=== PATIENT | female | born 1930 | race Hispanic/Latino ===

== ENCOUNTER 2017-10-16 10:53 | Emergency (ER) | payer MEDICARE, OTHER ==
[2017-10-16 11:00] VITALS: PULSE 76; TEMP 97; O2SAT 97; BMI 33.0
[2017-10-16 11:15] VITALS: RESP 18
--- NOTE | 2017-10-16 13:00 | ED PDOC ---
HPI: Female Pain Time Seen by Provider: 10/16/17 11:16 Chief Complaint (Nursing): Female Genitourinary Chief Complaint (Provider): Female genitourinary History Per: Patient History/Exam Limitations: no limitations Onset/Duration Of Symptoms: Days (x2 months) Current Symptoms Are (Timing): Still Present Pain Scale Rating Of: 0 Associated Symptoms: Urinary Symptoms (urinary difficulty). denies: Fever, Back Pain, Other (abdominal pain, ) Additional Complaint(s): Amber Pierce is an 87 year old female, with a past medical history of HTN, arthritis, hypercholesterolemia, frequent UTIs, and difficulty with urination, who presents to the emergency department complaining of urinary problem onset for x2 months. Patient was referred to Urologist, Dr. Parkinson, but was unable to follow-up due to insurance problem. Patient was seen here in September for the same symptoms and was given Abx. Patient still has urinary difficulty but denies new complaints, pain with urination, abdominal pain, back pain or fevers. No further medical complaints. PMD: Jay Alejandra Past Medical History Reviewed: Historical Data, Nursing Documentation, Vital Signs Vital Signs: Last Vital Signs Temp 97 F L 10/16/17 11:10 Pulse 76 10/16/17 11:10 Resp 18 10/16/17 11:10 BP 177/66 H 10/16/17 11:10 Pulse Ox 97 10/16/17 11:10 - Medical History PMH: Arthritis, HTN, Hypercholesterolemia Denies: Chronic Kidney Disease - Surgical History Surgical History: No Surg Hx - Family History Family History: States: Unknown Family Hx - Social History Current smoker - smoking cessation education provided: No Alcohol: None Drugs: Denies - Home Medications Home Medications: Ambulatory Orders Medication Instructions Recorded Bimatoprost [Lumigan] 2.5 ml PO DAILY 10/09/16 Gabapentin [Neurontin] 100 mg PO DAILY 10/09/16 Meloxicam [Meloxicam] 7.5 mg PO DAILY 10/09/16 Metoprolol Succinate [Toprol XL] 50 mg PO DAILY 10/09/16 Simvastatin [Simvastatin] 20 mg PO DAILY 10/09/16 Nitrofurantoin Macrocrystals 100 mg PO BID #14 tab 09/10/17 [Macrobid] Ciprofloxacin [Cipro] 500 mg PO BID #14 tab 10/16/17 - Allergies Allergies/Adverse Reactions: Allergies Allergy/AdvReac Type Severity Reaction Status Date / Time No Known Allergies Allergy Verified 10/02/16 10:31 Review of Systems ROS Statement: Except As Marked, All Systems Reviewed And Found Negative Constitutional: Negative for: Fever Gastrointestinal: Negative for: Abdominal Pain Genitourinary Female: Positive for: Incontinence (w/ discomfort) Musculoskeletal: Negative for: Back Pain Physical Exam - Reviewed Nursing Documentation Reviewed: Yes Vital Signs Reviewed: Yes - Physical Exam Appears: Positive for: Well (appears), Non-toxic, No Acute Distress Head Exam: Positive for: ATRAUMATIC Skin: Positive for: Normal Color, Warm, Dry Eye Exam: Positive for: Normal appearance, EOMI Neck: Positive for: Painless ROM, Supple Cardiovascular/Chest: Positive for: Regular Rate, Rhythm. Negative for: Murmur Respiratory: Positive for: Normal Breath Sounds. Negative for: Respiratory Distress Gastrointestinal/Abdominal: Positive for: Soft. Negative for: Tenderness, Guarding, Rebound Extremity: Positive for: Normal ROM. Negative for: Deformity, Swelling Neurologic/Psych: Positive for: Alert, Oriented - ECG O2 Sat by Pulse Oximetry: 97 (RA) Pulse Ox Interpretation: Normal Medical Decision Making Medical Decision Making: Initial Impression: recurrent UTI, chronic urinary dysuria Initial Plan: --Urine dipstick --Urine C&S --reevaluation -Patient will be referred to an urologist. Scribe Attestation: Documented by Teddy Landis, acting as a scribe for Shyam Del Rio MD Provider Scribe Attestation: All medical record entries made by the Scribe were at my direction and personally dictated by me. I have reviewed the chart and agree that the record accurately reflects my personal performance of the history, physical exam, medical decision making, and the department course for this patient. I have also personally directed, reviewed, and agree with the discharge instructions and disposition. Disposition - Clinical Impression Clinical Impression: Chronic urinary tract infection, Urinary retention - Patient ED Disposition Is Patient to be Admitted: No Counseled Patient/Family Regarding: Studies Performed, Diagnosis, Need For Followup - Disposition Referrals: Rikki Sethi Jr., MD [Staff Provider] - Disposition: Routine/Home Disposition Time: 12:30 Condition: GOOD Additional Instructions: Follow up with Dr Sethi within 1 week. You will have service call you in [place] for appointment. Prescriptions: Ciprofloxacin [Cipro] 500 mg PO BID #14 tab Instructions: Chronic Urinary Retention in Women (ED) Forms: [facility] (Romansh), [facility] (Luxembourger) Print Language: [place]
[2017-10-16 13:12] VITALS: BP 132/74
== END 2017-10-16 13:12 | disposition home or self-care (01) ==
LOC: H.ER 10:53
DX: N39.0 Urinary tract infection, site not specified (principal); R39.9 Unspecified symptoms and signs involving the genitourinary system; E78.00 Pure hypercholesterolemia, unspecified; I10 Essential (primary) hypertension

== ENCOUNTER 2017-11-25 12:18 | Inpatient (IN) | payer MEDICARE, OTHER ==
[2017-11-25] MEDS ORDERED: Sodium Chloride 0.9% 1,000 ML IV STA (12:44)
[2017-11-25] MEDS ORDERED: Iohexol 240 (50 ml) PO ONE (13:28)
--- NOTE | 2017-11-25 14:34 | RAD ---
HISTORY: SOB COMPARISON: 06/05/2017. FINDINGS: LUNGS: No active pulmonary disease. PLEURA: No significant pleural effusion identified, no pneumothorax apparent. CARDIOVASCULAR: No radiographic findings to suggest acute or significant cardiovascular disease. OSSEOUS STRUCTURES: No significant abnormalities. VISUALIZED UPPER ABDOMEN: Normal. OTHER FINDINGS: None. IMPRESSION: No active disease. No significant interval change compared to the prior examination(s).
[2017-11-25] MEDS ORDERED: Iohexol 240 (50 ml) ONE (14:35)
[2017-11-25 15:03] LABS: BASO % 0.3 % (0.0-2.0); EOS # 0.1 K/uL (0.0-0.7); EOS % 1.3 % (0.0-4.0); HEMOGLOBIN 11.6 g/dL (12.0-16.0); LYMPH # 0.4 K/uL (1.0-4.3); LYMPH % 7.1 % (20.0-40.0); MEAN CELL VOLUME 99.4 fl (81.0-99.0); MEAN CORPUSCULAR HEMOGLOBIN 31.9 pg (27.0-31.0); MEAN CORPUSCULAR HGB CONC 32.1 g/dL (33.0-37.0); MEAN PLATELET VOLUME 8.5 fl (7.2-11.7); MONO # 0.8 K/uL (0.0-0.8); MONO % 14.9 % (0.0-10.0); NEUT # 3.9 K/uL (1.8-7.0); NEUT % 76.4 % (50.0-75.0); PLATELET COUNT 135 K/uL (130-400); RBC 3.65 Mil/uL (3.80-5.20); RED CELL DISTRIBUTION WIDTH 13.6 % (11.5-14.5); URINE BACTERIA RARE (<OCC); URINE BILIRUBIN NEGATIVE (NEGATIVE); URINE BLOOD SMALL (NEGATIVE); URINE CLARITY CLEAR (Clear); URINE COLOR YELLOW (YELLOW); URINE GLUCOSE (UA) NEG (Normal); URINE LEUKOCYTE ESTERASE NEG Leu/uL (Negative); URINE NITRATE NEGATIVE (NEGATIVE); URINE PROTEIN NEGATIVE (NEGATIVE); URINE UROBILINOGEN 0.2-1.0 mg/dL (0.2-1.0)
[2017-11-25 15:08] LABS: PARTIAL THROMBOPLASTIN TIME 31.7 Seconds (25.6-37.1); PROTHROMBIN TIME 11.1 Seconds (9.8-13.1)
[2017-11-25 15:14] LABS: ALB/GLOB RATIO 1.3 (1.0-2.1); ALBUMIN 3.8 g/dL (3.5-5.0); ALT/SGPT 24 U/L (9-52); AST/SGOT 29 U/L (14-36); BLOOD UREA NITROGEN 26 mg/dl (7-17); CALCIUM 9.1 mg/dL (8.4-10.2); GFR AFRICAN-AMERICAN > 60; GFR NON-AFRICAN AMERICAN 53; LIPASE 80 U/L (23-300)
--- NOTE | 2017-11-25 15:43 | ED PDOC ---
HPI: Abdomen Time Seen by Provider: 11/25/17 12:43 Chief Complaint (Nursing): Abdominal Pain Chief Complaint (Provider): abdominal pain History Per: Patient, Family (cousin), Corporate Safety Director (omani) History/Exam Limitations: other (poor historian) Onset/Duration Of Symptoms: Gradual, Other (weeks, worse today) Context: Food Severity: Moderate Location Of Pain/Discomfort: Diffuse Quality Of Discomfort: Sharp Associated Symptoms: Nausea. denies: Vomiting, Diarrhea, Loss Of Appetite, Urinary Symptoms Exacerbating Factors: Food Alleviating Factors: None Last Bowel Movement: Today Additional Complaint(s): 87yo female presents c/o worsening abdominal pain over the last several weeks. She notes mild nausea, told RN she saw blood in stool but denied to journalists and other writers. Denies weight loss, fever, syncope, cough or constipation. PMD Justyn Abnormal Vaginal Bleeding: No Past Medical History Reviewed: Historical Data, Nursing Documentation, Vital Signs Vital Signs: Last Vital Signs Temp 97.8 F 11/25/17 12:21 Pulse 78 11/25/17 19:14 Resp 16 11/25/17 12:21 BP 150/73 11/25/17 12:21 Pulse Ox 97 11/25/17 19:14 - Medical History PMH: Arthritis, Depression, HTN, Hypercholesterolemia Denies: Chronic Kidney Disease - Surgical History Surgical History: Appendectomy Other surgeries: back surgery. shoulder? - Family History Family History: States: Unknown Family Hx - Home Medications Home Medications: Ambulatory Orders Medication Instructions Recorded Bimatoprost [Lumigan] 2.5 ml PO DAILY 10/09/16 Gabapentin [Neurontin] 100 mg PO DAILY 10/09/16 Meloxicam [Meloxicam] 7.5 mg PO DAILY 10/09/16 Metoprolol Succinate [Toprol XL] 50 mg PO DAILY 10/09/16 Simvastatin [Simvastatin] 20 mg PO HS 10/09/16 - Allergies Allergies/Adverse Reactions: Allergies Allergy/AdvReac Type Severity Reaction Status Date / Time No Known Allergies Allergy Verified 10/02/16 10:31 Review of Systems ROS Statement: Except As Marked, All Systems Reviewed And Found Negative Constitutional: Negative for: Fever, Chills Cardiovascular: Negative for: Chest Pain, Palpitations Respiratory: Negative for: Cough, Shortness of Breath Gastrointestinal: Positive for: Nausea, Abdominal Pain, Hematochezia. Negative for: Melena Genitourinary Female: Negative for: Dysuria Musculoskeletal: Positive for: Back Pain. Negative for: Neck Pain Skin: Negative for: Rash, Lesions Neurological: Negative for: Weakness, Numbness, Headache, Dizziness Psych: Negative for: Anxiety Physical Exam - Reviewed Nursing Documentation Reviewed: Yes Vital Signs Reviewed: Yes - Physical Exam Appears: Positive for: Well, Non-toxic, No Acute Distress Head Exam: Positive for: ATRAUMATIC, NORMAL INSPECTION, NORMOCEPHALIC Skin: Positive for: Warm, Pallor Eye Exam: Positive for: EOMI, Normal appearance, PERRL ENT: Positive for: Normal ENT Inspection Neck: Positive for: Normal, Painless ROM Cardiovascular/Chest: Positive for: Regular Rate, Rhythm Respiratory: Positive for: CNT, Normal Breath Sounds Gastrointestinal/Abdominal: Positive for: Bowel Sounds, Soft, Tenderness (mild diffuse). Negative for: Distended, Guarding, Rebound, Hernia Back: Positive for: Normal Inspection Extremity: Positive for: Normal ROM Neurologic/Psych: Positive for: Alert, Oriented - Laboratory Results Result Diagrams: 11/25/17 14:51 11/25/17 14:51 - ECG ECG: Positive for: Interpreted By Wi ECG Rhythm: Positive for: Normal QRS, Sinus Rhythm, Nonspecific Changes Rate: 78 O2 Sat by Pulse Oximetry: 97 Pulse Ox Interpretation: Normal Medical Decision Making Medical Decision Making: workup for abdominal pain in elderly female initiated 14:33 Chest x-ray reviewed. Findings noted as follows: FINDINGS: LUNGS: No active pulmonary disease. PLEURA: No significant pleural effusion identified, no pneumothorax apparent. CARDIOVASCULAR: No radiographic findings to suggest acute or significant cardiovascular disease. OSSEOUS STRUCTURES: No significant abnormalities. VISUALIZED UPPER ABDOMEN: Normal. OTHER FINDINGS: None. IMPRESSION: No active disease. No significant interval change compared to the prior examination(s). 17:57 Abdominal/pelvic CT reviewed. Findings noted as follows: FINDINGS: LOWER THORAX: Unremarkable. LIVER: Unremarkable. No gross lesion or ductal dilatation. Incidental finding(s): Subcentimeter calcified granuloma right hepatic lobe adjacent to the gallbladder. GALLBLADDER AND BILE DUCTS: Cholelithiasis without CT evidence of acute cholecystitis. PANCREAS: Unremarkable. No gross lesion or ductal dilatation. SPLEEN: Unremarkable. ADRENALS: Unremarkable. No mass. KIDNEYS AND URETERS: Unremarkable. No hydronephrosis. No solid mass. Incidental finding(s): 2 simple cysts identified right kidney. The larger more exophytic cyst lower pole region measures 3 x 3.5 cm. The smaller cyst measures 2.2 x 1.8 cm. VASCULATURE: Unremarkable. No aortic aneurysm. BOWEL: Severe sigmoid diverticular disease. APPENDIX: A normal appendix is not identified. No right lower quadrant or pelvic inflammatory process ease identified. PERITONEUM: Unremarkable. No free fluid. No free air. LYMPH NODES: Unremarkable. No enlarged lymph nodes. BLADDER: Unremarkable. REPRODUCTIVE: Unremarkable. BONES: No acute fracture. Multilevel degenerative change. Incidental finding(s): Mid and lower thoracic hum angioma OTHER FINDINGS: None. IMPRESSION: Severe sigmoid diverticular disease without an acute inflammatory component/ no interval change. Cholelithiasis without CT evidence of acute cholecystitis. No significant interval changes compared to the prior study. Additional benign and/or incidental findings described above. 19:[address] Alejandra, given pain now ongoing for >1month intermittently, rec admit obs for surgical consult. While elderly, she is otherwise a good candidate for surgery given stable metabolics and overall good conditioning. Scribe Attestation: Documented by Helga Thao, acting as a scribe for Rikki Wall III, DO. Provider Scribe Attestation: All medical record entries made by the Scribe were at my direction and personally dictated by me. I have reviewed the chart and agree that the record accurately reflects my personal performance of the history, physical exam, medical decision making, and the department course for this patient. I have also personally directed, reviewed, and agree with the discharge instructions and disposition. Disposition - Clinical Impression Clinical Impression: Cholelithiasis - Patient ED Disposition Is Patient to be Admitted: Yes Counseled Patient/Family Regarding: Studies Performed - Disposition Disposition: Routine/Home Disposition Time: 19:16 Condition: STABLE Forms: [employer] (Italian) - Pt Status Changed To: Hospital Disposition Of: Observation - POA Present On Arrival: None
[2017-11-25 16:42] LABS: EOSINOPHIL 3 % (0-7); LYMPHOCYTE 9 % (20-50); MONOCYTE 8 % (0-10); NEUTROPHIL 79 % (42-75); REACTIVE LYMPHOCYTES 1 % (0-0); TOTAL CELLS COUNTED 100
[2017-11-25 16:43] LABS: PLATELET ESTIMATE NORMAL (NORMAL)
[2017-11-25 16:44] LABS: OVALOCYTES SLIGHT
[2017-11-25] MEDS ORDERED: Sodium Chloride 0.9% 50 ML IV ONE (17:10)
[2017-11-25] MEDS ORDERED: Iohexol 300 100 ML IJ ONE (17:10)
--- NOTE | 2017-11-25 17:59 | CT ---
PROCEDURE: CT Abdomen and Pelvis with contrast HISTORY: Lower abdominal pain. Blood in stool. COMPARISON: 11/23/2017 CT abdomen and pelvis. TECHNIQUE: Contrast dose: 90 cc Omnipaque 300 Radiation dose: Total exam DLP = 1003.01 mGy-cm. This CT exam was performed using one or more of the following dose reduction techniques: Automated exposure control, adjustment of the mA and/or kV according to patient size, and/or use of iterative reconstruction technique. FINDINGS: LOWER THORAX: Unremarkable. LIVER: Unremarkable. No gross lesion or ductal dilatation. Incidental finding(s): Subcentimeter calcified granuloma right hepatic lobe adjacent to the gallbladder. GALLBLADDER AND BILE DUCTS: Cholelithiasis without CT evidence of acute cholecystitis. PANCREAS: Unremarkable. No gross lesion or ductal dilatation. SPLEEN: Unremarkable. ADRENALS: Unremarkable. No mass. KIDNEYS AND URETERS: Unremarkable. No hydronephrosis. No solid mass. Incidental finding(s): 2 simple cysts identified right kidney. The larger more exophytic cyst lower pole region measures 3 x 3.5 cm. The smaller cyst measures 2.2 x 1.8 cm. VASCULATURE: Unremarkable. No aortic aneurysm. BOWEL: Severe sigmoid diverticular disease. APPENDIX: A normal appendix is not identified. No right lower quadrant or pelvic inflammatory process ease identified. PERITONEUM: Unremarkable. No free fluid. No free air. LYMPH NODES: Unremarkable. No enlarged lymph nodes. BLADDER: Unremarkable. REPRODUCTIVE: Unremarkable. BONES: No acute fracture. Multilevel degenerative change. Incidental finding(s): Mid and lower thoracic hum angioma OTHER FINDINGS: None. IMPRESSION: Severe sigmoid diverticular disease without an acute inflammatory component/ no interval change. Cholelithiasis without CT evidence of acute cholecystitis. No significant interval changes compared to the prior study. Additional benign and/or incidental findings described above.
[2017-11-25] MEDS ORDERED: Morphine 4 MG/ML VIAL ONE (19:14)
--- NOTE | 2017-11-25 20:20 | CP.PCM.HP ---
History of Present Illness - History of Present Illness History of Present Illness: PMD: Dr Alejandra Chief Complaint: Abdominal Pain HPI: 87 years old [place] female with little [place], has hx of HTN, Arthritis, back surgery and stomach problem for one month comes with a worsening of the epigastric , preiumbilical pains that are intermittent and radiating up retro sternal region. The pain is not associated with vomiting, dysuria , urinary frequency, nor diarrhea. She did refer to the nurse of blood in stool PMH: Arthritis, Depression, HTN, Hypercholesterolemia PSH: Appendectomy, Back surgery and bilateral cataract surgery SH: Never Smoked, No illegal drug use; No ETOH FH: States: Unknown Family Hx Allergies: NKDA [id number]: Reviewed Present on Admission - Present on Admission Any Indicators Present on Admission: No History of DVT/PE: No History of Uncontrolled Diabetes: No Urinary Catheter: No Decubitus Ulcer Present: No Review of Systems - Constitutional Constitutional: absent: Chills, Fever, Lethargy - EENT Eyes: Requires Corrective Lenses. absent: Diplopia, Floaters Ears: absent: Decreased Hearing, Ear Discharge, Ear Pain, Tinnitus Nose/Mouth/Throat: absent: Epistaxis, Nasal Congestion, Nasal Discharge - Cardiovascular Cardiovascular: Edema. absent: Chest Pain, Dyspnea - Respiratory Respiratory: absent: Cough, Dyspnea, Dyspnea on Exertion, Excessive Mucous Production - Gastrointestinal Gastrointestinal: Nausea. absent: Constipation, Diarrhea, Vomiting - Genitourinary Genitourinary: absent: Dysuria, Flank Pain, Hematuria, Urinary Frequency - Musculoskeletal Musculoskeletal: Arthralgias. absent: Myalgias - Integumentary Integumentary: absent: Pruritus, Rash, Skin Ulcer, Sores, Striae - Neurological Neurological: absent: Confusion, Dizziness, Numbness, Headaches - Psychiatric Psychiatric: absent: Anxiety, Depression, Panic Attacks - Endocrine Endocrine: absent: Palpitations, Polydipsia, Polyphagia, Polyuria - Hematologic/Lymphatic Hematologic: absent: Easy Bleeding, Easy Bruising Past Patient History - Past Medical History & Family History Past Medical History?: Yes - Past Social History Smoking Status: Never Smoked Chewing Tobacco Use: No Cigar Use: No Alcohol: None Drugs: Denies - CARDIAC Hx Hypercholesterolemia: Yes Hx Hypertension: Yes - PULMONARY Hx Respiratory Disorders: No - NEUROLOGICAL Hx Neurological Disorder: No - HEENT Hx HEENT Problems: No - RENAL Hx Chronic Kidney Disease: No - ENDOCRINE/METABOLIC Hx Endocrine Disorders: No - HEMATOLOGICAL/ONCOLOGICAL Hx Blood Disorders: No - INTEGUMENTARY Hx Dermatological Problems: No - MUSCULOSKELETAL/RHEUMATOLOGICAL Hx Arthritis: Yes - GASTROINTESTINAL Hx Gastrointestinal Disorders: No - GENITOURINARY/GYNECOLOGICAL Hx Genitourinary Disorders: No - PSYCHIATRIC Hx Depression: Yes - SURGICAL HISTORY Hx Appendectomy: Yes Hx Orthopedic Surgery: Yes (Back surgery) - ANESTHESIA Hx Anesthesia: Yes Hx Anesthesia Reactions: No Hx Malignant Hyperthermia: No Meds Allergies/Adverse Reactions: Allergies Allergy/AdvReac Type Severity Reaction Status Date / Time No Known Allergies Allergy Verified 10/02/16 10:31 Physical Exam - Constitutional Appears: No Acute Distress - Head Exam Head Exam: ATRAUMATIC, NORMAL INSPECTION, NORMOCEPHALIC - Eye Exam Eye Exam: EOMI, Normal appearance Pupil Exam: NORMAL ACCOMODATION, PERRL - ENT Exam ENT Exam: Mucous Membranes Dry, Mucous Membranes Moist, Normal Exam, Normal Oropharynx - Neck Exam Neck exam: Positive for: Full Rom, Normal Inspection. Negative for: Lymphadenopathy, Tenderness - Respiratory Exam Respiratory Exam: Clear to Auscultation Bilateral, Respiratory Distress. absent : Rales, Rhonchi, Wheezes - Cardiovascular Exam Cardiovascular Exam: REGULAR RHYTHM, RRR, +S1, +S2. absent: Gallop - GI/Abdominal Exam GI & Abdominal Exam: Hyperactive Bowel Sounds, Mass, Normal Bowel Sounds, Soft - Rectal Exam Rectal Exam: Deferred - Extremities Exam Additional comments: Trace edema to the right leg, Tenderness to both ankles - Back Exam Back exam: NORMAL INSPECTION. absent: CVA tenderness (L), CVA tenderness (R) - Neurological Exam Neurological exam: Alert, CN II-XII Intact, Oriented x3, Reflexes Normal - Psychiatric Exam Psychiatric exam: Normal Affect, Normal Mood - Skin Skin Exam: Dry, Intact, Normal Color, Warm Results - Vital Signs Recent Vital Signs: Last Vital Signs Temp 98 F 11/25/17 19:47 Pulse 71 11/25/17 19:47 Resp 18 11/25/17 19:47 BP 140/78 11/25/17 19:47 Pulse Ox 99 11/25/17 19:47 - Labs Result Diagrams: 11/25/17 14:51 11/25/17 14:51 Labs: Laboratory Results - last 24 hr 11/25/17 11/25/17 11/25/17 14:25 14:51 14:51 WBC 5.0 RBC 3.65 L Hgb 11.6 L Hct 36.2 MCV 99.4 H MCH 31.9 H MCHC 32.1 L RDW 13.6 Plt Count 135 MPV 8.5 Neut % (Auto) 76.4 H Lymph % (Auto) 7.1 L [place] % (Auto) 14.9 H Eos % (Auto) 1.3 Baso % (Auto) 0.3 Neut # 3.9 Lymph # 0.4 L [place] # 0.8 Eos # 0.1 Baso # 0.0 Neutrophils % (Manual) 79 H Lymphocytes % (Manual) 9 L Reactive Lymphs % 1 H Monocytes % (Manual) 8 Eosinophils % (Manual) 3 Platelet Estimate Normal Ovalocytes Slight PT INR APTT Sodium 138 Potassium 4.2 Chloride 101 Carbon Dioxide 29 Anion Gap 12 BUN 26 H Creatinine 1.0 Est GFR ( Amer) > 60 Est GFR (Non-Af Amer) 53 Random Glucose 82 Calcium 9.1 Total Bilirubin 0.4 AST 29 ALT 24 Alkaline Phosphatase 54 Troponin I 0.0190 Total Protein 6.7 Albumin 3.8 Globulin 2.9 Albumin/Globulin Ratio 1.3 Lipase 80 Urine Color Urine Clarity Urine pH Ur Specific [place] Urine Protein Urine Glucose (UA) Urine Ketones Urine Blood Urine Nitrate Urine Bilirubin Urine Urobilinogen Ur Leukocyte Esterase Urine RBC (Auto) Urine Microscopic WBC Urine Bacteria Blood Type O POSITIVE Antibody Screen Negative BBK History Checked No verified bt 11/25/17 11/25/17 14:51 14:51 WBC RBC Hgb Hct MCV MCH MCHC RDW Plt Count MPV Neut % (Auto) Lymph % (Auto) [place] % (Auto) Eos % (Auto) Baso % (Auto) Neut # Lymph # [place] # Eos # Baso # Neutrophils % (Manual) Lymphocytes % (Manual) Reactive Lymphs % Monocytes % (Manual) Eosinophils % (Manual) Platelet Estimate Ovalocytes PT 11.1 INR 1.0 APTT 31.7 Sodium Potassium Chloride Carbon Dioxide Anion Gap BUN Creatinine Est GFR ( Amer) Est GFR (Non-Af Amer) Random Glucose Calcium Total Bilirubin AST ALT Alkaline Phosphatase Troponin I Total Protein Albumin Globulin Albumin/Globulin Ratio Lipase Urine Color Yellow Urine Clarity Clear Urine pH 7.0 Ur Specific [place] 1.013 Urine Protein Negative Urine Glucose (UA) Neg Urine Ketones Negative Urine Blood Small Urine Nitrate Negative Urine Bilirubin Negative Urine Urobilinogen 0.2-1.0 Ur Leukocyte Esterase Neg Urine RBC (Auto) < 1 Urine Microscopic WBC < 1 Urine Bacteria Rare Blood Type Antibody Screen BBK History Checked - Impressions Impression: NSR 78/min No sign of ischemia - Imaging and Cardiology US - abdomen Status: Report reviewed by me Additional comment: EXAM: US Abdomen Limited, Right Upper Quadrant EXAM DATE/TIME: 11/25/2017 6:57 PM FINDINGS: Liver: The liver is within normal limits for size and echogenicity. No definite intrahepatic ductal dilatation or mass is identified. Gallbladder: The gallbladder demonstrates a shadowing 2.3 cm gallstone near the neck. No wall thickening, or pericholecystic fluid. The sonographic bass's sign is reported as positive. The extrahepatic CBD measures 3 mm which is normal for age. Common bile duct: See above. Pancreas: The visualized portions of the pancreatic head and body appear unremarkable. The pancreatic tail is not entirely visualized. Right kidney: Right kidney measures 10.1 x 3.8 x 3.7 cm. No hydronephrosis. Simple cyst measures 3.6 x 3.3 x 2.8 cm in the lower pole. No stones. Free fluid: No significant ascites is noted. IMPRESSION: Cholelithiasis. Reported positive sonographic Bass's sign, although there is no additional convincing evidence of acute cholecystitis. Clinical correlation with the degree and nature of right upper quadrant pain is recommended. Chest x-ray Status: Image reviewed by me Additional comment: Poor inspiration Chronic changes at the right paracardiac region CT scan - abdomen Status: Report reviewed by me Additional comment: Severe Sigmoid Diverticulosis without sign of inflammation Cholelithiasis with out sign of Cholecystitis Assessment & Plan - Assessment and Plan (Free Text) Assessment: #. Biliary Cholic #. Cholelithiasis #. Dehydration #. HTN Plan: 87 years old [place] female with little [place], has hx of HTN, Arthritis, back surgery and stomach problem for one month comes with a worsening of the epigastric , preiumbilical pains that are intermittent and radiating up retro sternal region. #. Biliary Cholic with cholelithiasis - Consult Surgery Dr Pineda -NPO -IV Fluids -Pain management #. Dehydration - IV fluids - follow Renal labs #. Hx of Stomach Pains and blood in stool - Consult Dr Henry GI for Possible EGD - Follow Occult blood - Pepcid #. HTN - Restart Toprol in AM - Follow Vital signs #. DVD Prophylaxis with SCD #. Code Status: Full - Date & Time Date: 11/25/17 Time: 20:20
--- NOTE | 2017-11-26 00:15 | CP.PCM.CON ---
<Dilip Sanchez - Last Filed: 11/26/17 06:14> History of Present Illness - History of Present Illness History of Present Illness: General Surgery Consult Note for Dr. Pineda Reason for Consult: abdominal pain 87 F who is primarily Scottish speaking with PMH that includes HTN, Arthritis, HLD, Depression presents to [facility] for abdominal pain. Due to language barrier, history was obtained mostly from her [id number]. Patient understands some Cameroonian and can answer basic questions. As per [id number], patient has had abdominal pain for about 2 months. She has also had nausea, dysuria and frequency. Patient has been seeing PMD. He referred her for imaging which was done over the weekend. Patient began to feel worse and decided to be seen. She rates pain as moderate in severity. Pain is not associated with food. She describes pain as constant and dull ache in epigastric/preiumbilical area that radiates diffusely throughout abdomen and sometimes radiating to sternum. She denies any alleviating/exacerbating factors. Denies fever/chills, chest pain, SOB, nausea/vomiting, diarrhea, constipation, incontinence. PMH: Arthritis, Depression, HTN, Hypercholesterolemia Medications: As per EMR Allergies: NKDA PSH: Appendectomy, Back surgery and bilateral cataract surgery FH: Unknown SH: Never Smoked, No illegal drug use; No ETOH Review of Systems - Review of Systems All systems: reviewed and no additional remarkable complaints except (as per HPI ) Past Patient History - Past Medical History & Family History Past Medical History?: Yes - Past Social History Smoking Status: Never Smoked - CARDIAC Hx Hypercholesterolemia: Yes Hx Hypertension: Yes - PULMONARY Hx Respiratory Disorders: No - NEUROLOGICAL Hx Neurological Disorder: No - HEENT Hx HEENT Problems: No - RENAL Hx Chronic Kidney Disease: No - ENDOCRINE/METABOLIC Hx Endocrine Disorders: No - HEMATOLOGICAL/ONCOLOGICAL Hx Blood Disorders: No - INTEGUMENTARY Hx Dermatological Problems: No - MUSCULOSKELETAL/RHEUMATOLOGICAL Hx Arthritis: Yes Hx Falls: No - GASTROINTESTINAL Hx Gastrointestinal Disorders: No - GENITOURINARY/GYNECOLOGICAL Hx Genitourinary Disorders: No - PSYCHIATRIC Hx Depression: Yes Hx Substance Use: No - SURGICAL HISTORY Hx Appendectomy: Yes - ANESTHESIA Hx Anesthesia: Yes Hx Anesthesia Reactions: No Hx Malignant Hyperthermia: No Meds Allergies/Adverse Reactions: Allergies Allergy/AdvReac Type Severity Reaction Status Date / Time No Known Allergies Allergy Verified 10/02/16 10:31 - Medications Medications: Current Medications Atorvastatin Calcium (Lipitor) 10 mg PO HS [facility] Famotidine (Pepcid) 20 mg IVP DAILY [facility] Dextrose/Sodium Chloride (Dextrose 5%-0.9% Ns 500 Ml) 500 mls @ 75 mls/hr IV .Q6H40M [facility] Stop: 11/26/17 21:53 Last Admin: 11/25/17 22:52 Dose: 75 mls/hr Latanoprost (Xalatan Opht) 1 drop OU HS [facility] Metoprolol Succinate (Toprol Xl) 50 mg PO DAILY [facility] Pneumococcal Polyvalent Vaccine (Pneumovax 23 Vaccine) 0.5 ml IM .ONCE ONE Stop: 11/26/17 09:01 Physical Exam - Constitutional Appears: No Acute Distress - Head Exam Head Exam: ATRAUMATIC, NORMOCEPHALIC - Eye Exam Eye Exam: EOMI, Normal appearance Pupil Exam: PERRL - ENT Exam ENT Exam: Mucous Membranes Moist - Respiratory Exam Respiratory Exam: NORMAL BREATHING PATTERN - Cardiovascular Exam Cardiovascular Exam: REGULAR RHYTHM - GI/Abdominal Exam GI & Abdominal Exam: Normal Bowel Sounds, Soft, Tenderness (diffuse). absent: Distended, Firm, Guarding, Rebound, Rigid - Extremities Exam Extremities exam: Positive for: normal capillary refill, pedal pulses present - Back Exam Back exam: absent: CVA tenderness (L), CVA tenderness (R) - Neurological Exam Neurological exam: Alert, CN II-XII Intact, Oriented x3 - Psychiatric Exam Psychiatric exam: Normal Affect, Normal Mood - Skin Skin Exam: Dry, Intact, Normal Color, Warm Results - Vital Signs Recent Vital Signs: Last Vital Signs Temp 98.3 F 11/25/17 23:52 Pulse 69 11/25/17 23:52 Resp 18 11/25/17 23:52 BP 164/74 H 11/25/17 23:52 Pulse Ox 96 11/25/17 23:52 - Labs Result Diagrams: 11/25/17 14:51 11/25/17 14:51 Labs: Laboratory Results - last 24 hr 11/25/17 11/25/17 11/25/17 14:25 14:51 14:51 WBC 5.0 RBC 3.65 L Hgb 11.6 L Hct 36.2 MCV 99.4 H MCH 31.9 H MCHC 32.1 L RDW 13.6 Plt Count 135 MPV 8.5 Neut % (Auto) 76.4 H Lymph % (Auto) 7.1 L [place] % (Auto) 14.9 H Eos % (Auto) 1.3 Baso % (Auto) 0.3 Neut # 3.9 Lymph # 0.4 L [place] # 0.8 Eos # 0.1 Baso # 0.0 Neutrophils % (Manual) 79 H Lymphocytes % (Manual) 9 L Reactive Lymphs % 1 H Monocytes % (Manual) 8 Eosinophils % (Manual) 3 Platelet Estimate Normal Ovalocytes Slight PT INR APTT Sodium 138 Potassium 4.2 Chloride 101 Carbon Dioxide 29 Anion Gap 12 BUN 26 H Creatinine 1.0 Est GFR ( Amer) > 60 Est GFR (Non-Af Amer) 53 Random Glucose 82 Calcium 9.1 Total Bilirubin 0.4 AST 29 ALT 24 Alkaline Phosphatase 54 Troponin I 0.0190 Total Protein 6.7 Albumin 3.8 Globulin 2.9 Albumin/Globulin Ratio 1.3 Lipase 80 Urine Color Urine Clarity Urine pH Ur Specific [place] Urine Protein Urine Glucose (UA) Urine Ketones Urine Blood Urine Nitrate Urine Bilirubin Urine Urobilinogen Ur Leukocyte Esterase Urine RBC (Auto) Urine Microscopic WBC Urine Bacteria Blood Type O POSITIVE Antibody Screen Negative BBK History Checked No verified bt 11/25/17 11/25/17 14:51 14:51 WBC RBC Hgb Hct MCV MCH MCHC RDW Plt Count MPV Neut % (Auto) Lymph % (Auto) [place] % (Auto) Eos % (Auto) Baso % (Auto) Neut # Lymph # [place] # Eos # Baso # Neutrophils % (Manual) Lymphocytes % (Manual) Reactive Lymphs % Monocytes % (Manual) Eosinophils % (Manual) Platelet Estimate Ovalocytes PT 11.1 INR 1.0 APTT 31.7 Sodium Potassium Chloride Carbon Dioxide Anion Gap BUN Creatinine Est GFR ( Amer) Est GFR (Non-Af Amer) Random Glucose Calcium Total Bilirubin AST ALT Alkaline Phosphatase Troponin I Total Protein Albumin Globulin Albumin/Globulin Ratio Lipase Urine Color Yellow Urine Clarity Clear Urine pH 7.0 Ur Specific [place] 1.013 Urine Protein Negative Urine Glucose (UA) Neg Urine Ketones Negative Urine Blood Small Urine Nitrate Negative Urine Bilirubin Negative Urine Urobilinogen 0.2-1.0 Ur Leukocyte Esterase Neg Urine RBC (Auto) < 1 Urine Microscopic WBC < 1 Urine Bacteria Rare Blood Type Antibody Screen BBK History Checked Assessment & Plan - Assessment and Plan (Free Text) Plan: 87 F with abdominal pain, CT reveals cholelithiasis and severe diverticular disease in sigmoid colon -NPO -IV fluids -Analgesics/Anti-emetics PRN -f/u ABUS -Will discuss with Dr. Edwin Sanchez PGY1 <Michael Lawler - Last Filed: 11/26/17 10:00> History of Present Illness - History of Present Illness History of Present Illness: Patient was seen and examined at the bedside. Agree with resident's note above. Meds - Medications Medications: Current Medications Atorvastatin Calcium (Lipitor) 10 mg PO HS [facility] Last Admin: 11/26/17 08:55 Dose: 10 mg Famotidine (Pepcid) 20 mg IVP DAILY [facility] Last Admin: 11/26/17 08:55 Dose: 20 mg Dextrose/Sodium Chloride (Dextrose 5%-0.9% Ns 500 Ml) 500 mls @ 75 mls/hr IV .Q6H40M [facility] Stop: 11/26/17 21:53 Last Admin: 11/26/17 05:00 Dose: Not Given Latanoprost (Xalatan Opht) 1 drop OU HS [facility] Metoprolol Succinate (Toprol Xl) 50 mg PO DAILY [facility] Last Admin: 11/26/17 08:55 Dose: 50 mg Morphine Sulfate (Morphine) 2 mg IVP Q4 PRN PRN Reason: Pain, severe (8-10) Ondansetron HCl (Zofran Inj) 4 mg IVP Q4 PRN PRN Reason: Nausea/Vomiting Results - Vital Signs Recent Vital Signs: Last Vital Signs Temp 97.9 F 11/26/17 08:09 Pulse 69 11/26/17 08:09 Resp 20 11/26/17 08:09 BP 159/74 H 11/26/17 08:09 Pulse Ox 94 L 11/26/17 08:09 - Labs Result Diagrams: 11/26/17 05:35 11/26/17 05:35 Labs: Laboratory Results - last 24 hr 11/25/17 11/25/17 11/25/17 14:25 14:51 14:51 WBC 5.0 RBC 3.65 L Hgb 11.6 L Hct 36.2 MCV 99.4 H MCH 31.9 H MCHC 32.1 L RDW 13.6 Plt Count 135 MPV 8.5 Neut % (Auto) 76.4 H Lymph % (Auto) 7.1 L [place] % (Auto) 14.9 H Eos % (Auto) 1.3 Baso % (Auto) 0.3 Neut # 3.9 Lymph # 0.4 L [place] # 0.8 Eos # 0.1 Baso # 0.0 Neutrophils % (Manual) 79 H Lymphocytes % (Manual) 9 L Reactive Lymphs % 1 H Monocytes % (Manual) 8 Eosinophils % (Manual) 3 Platelet Estimate Normal Ovalocytes Slight PT INR APTT Sodium 138 Potassium 4.2 Chloride 101 Carbon Dioxide 29 Anion Gap 12 BUN 26 H Creatinine 1.0 Est GFR ( Amer) > 60 Est GFR (Non-Af Amer) 53 Random Glucose 82 Calcium 9.1 Total Bilirubin 0.4 AST 29 ALT 24 Alkaline Phosphatase 54 Troponin I 0.0190 Total Protein 6.7 Albumin 3.8 Globulin 2.9 Albumin/Globulin Ratio 1.3 Lipase 80 Urine Color Urine Clarity Urine pH Ur Specific [place] Urine Protein Urine Glucose (UA) Urine Ketones Urine Blood Urine Nitrate Urine Bilirubin Urine Urobilinogen Ur Leukocyte Esterase Urine RBC (Auto) Urine Microscopic WBC Urine Bacteria Blood Type O POSITIVE Antibody Screen Negative BBK History Checked No verified bt 11/25/17 11/25/17 11/26/17 14:51 14:51 05:35 WBC 3.6 L RBC 3.61 L Hgb 12.0 Hct 35.3 MCV 97.7 MCH 33.1 H MCHC 33.9 RDW 13.3 Plt Count 129 L MPV 8.3 Neut % (Auto) 59.6 Lymph % (Auto) 16.7 L [place] % (Auto) 22.0 H Eos % (Auto) 1.1 Baso % (Auto) 0.6 Neut # 2.1 Lymph # 0.6 L [place] # 0.8 Eos # 0.0 Baso # 0.0 Neutrophils % (Manual) Lymphocytes % (Manual) Reactive Lymphs % Monocytes % (Manual) Eosinophils % (Manual) Platelet Estimate Ovalocytes PT 11.1 INR 1.0 APTT 31.7 Sodium Potassium Chloride Carbon Dioxide Anion Gap BUN Creatinine Est GFR ( Amer) Est GFR (Non-Af Amer) Random Glucose Calcium Total Bilirubin AST ALT Alkaline Phosphatase Troponin I Total Protein Albumin Globulin Albumin/Globulin Ratio Lipase Urine Color Yellow Urine Clarity Clear Urine pH 7.0 Ur Specific [place] 1.013 Urine Protein Negative Urine Glucose (UA) Neg Urine Ketones Negative Urine Blood Small Urine Nitrate Negative Urine Bilirubin Negative Urine Urobilinogen 0.2-1.0 Ur Leukocyte Esterase Neg Urine RBC (Auto) < 1 Urine Microscopic WBC < 1 Urine Bacteria Rare Blood Type Antibody Screen BBK History Checked 11/26/17 05:35 WBC RBC Hgb Hct MCV MCH MCHC RDW Plt Count MPV Neut % (Auto) Lymph % (Auto) [place] % (Auto) Eos % (Auto) Baso % (Auto) Neut # Lymph # [place] # Eos # Baso # Neutrophils % (Manual) Lymphocytes % (Manual) Reactive Lymphs % Monocytes % (Manual) Eosinophils % (Manual) Platelet Estimate Ovalocytes PT INR APTT Sodium 137 Potassium 4.0 Chloride 101 Carbon Dioxide 31 H Anion Gap 9 L BUN 19 H Creatinine 0.8 Est GFR ( Amer) > 60 Est GFR (Non-Af Amer) > 60 Random Glucose 98 Calcium 8.9 Total Bilirubin AST ALT Alkaline Phosphatase Troponin I Total Protein Albumin Globulin Albumin/Globulin Ratio Lipase Urine Color Urine Clarity Urine pH Ur Specific [place] Urine Protein Urine Glucose (UA) Urine Ketones Urine Blood Urine Nitrate Urine Bilirubin Urine Urobilinogen Ur Leukocyte Esterase Urine RBC (Auto) Urine Microscopic WBC Urine Bacteria Blood Type Antibody Screen BBK History Checked Assessment & Plan - Assessment and Plan (Free Text) Plan: - Keep NPO - Plan for cholecystectomy tomorrow - repeat labs in am - Will follow
[2017-11-26 06:21] LABS: BASO % 0.6 % (0.0-2.0); EOS % 1.1 % (0.0-4.0); LYMPH # 0.6 K/uL (1.0-4.3); LYMPH % 16.7 % (20.0-40.0); MEAN CELL VOLUME 97.7 fl (81.0-99.0); MEAN CORPUSCULAR HEMOGLOBIN 33.1 pg (27.0-31.0); MEAN CORPUSCULAR HGB CONC 33.9 g/dL (33.0-37.0); MEAN PLATELET VOLUME 8.3 fl (7.2-11.7); MONO # 0.8 K/uL (0.0-0.8); NEUT # 2.1 K/uL (1.8-7.0); NEUT % 59.6 % (50.0-75.0); NRBC % 0.1 % (0.0-0.0); RBC 3.61 Mil/uL (3.80-5.20); RED CELL DISTRIBUTION WIDTH 13.3 % (11.5-14.5); WHITE BLOOD COUNT 3.6 K/uL (4.8-10.8)
[2017-11-26 06:33] LABS: BLOOD UREA NITROGEN 19 mg/dl (7-17); CALCIUM 8.9 mg/dL (8.4-10.2); GFR AFRICAN-AMERICAN > 60; GFR NON-AFRICAN AMERICAN > 60
--- NOTE | 2017-11-26 08:37 | CP.PCM.PN ---
<DanteMayelastanislaviona - Last Filed: 11/26/17 14:17> Subjective - Date & Time of Evaluation Date of Evaluation: 11/26/17 Time of Evaluation: 08:30 - Subjective Subjective: 87 years old female patient with PMHx of HTN, Arthritis, back surgery was seen and evaluated at bedside for stomach pain. Patient is AAOx3 and is in NAD. Patient denies of any acute overnight events and reports that she has generalized body pain along with the stomach pain. Patient reports that she gets out of breath after climbing one flight of stairs but denies of any resting chest pain. Patient denies of having any recent F/N/V/C/SOB/CP/headache/ diarrhea. Denies of having any other complains at this time. Objective - Vital Signs/Intake and Output Vital Signs (last 24 hours): Temp Pulse Resp BP Pulse Ox 97.9 F 69 20 159/74 H 94 L 11/26/17 08:09 11/26/17 08:09 11/26/17 08:09 11/26/17 08:09 11/26/17 08:09 - Medications Medications: Current Medications Atorvastatin Calcium (Lipitor) 10 mg PO HS [facility] Famotidine (Pepcid) 20 mg IVP DAILY [facility] Last Admin: 11/25/17 23:00 Dose: 20 mg Dextrose/Sodium Chloride (Dextrose 5%-0.9% Ns 500 Ml) 500 mls @ 75 mls/hr IV .Q6H40M [facility] Stop: 11/26/17 21:53 Last Admin: 11/26/17 05:00 Dose: Not Given Latanoprost (Xalatan Opht) 1 drop OU HS [facility] Metoprolol Succinate (Toprol Xl) 50 mg PO DAILY [facility] Morphine Sulfate (Morphine) 2 mg IVP Q4 PRN PRN Reason: Pain, severe (8-10) Ondansetron HCl (Zofran Inj) 4 mg IVP Q4 PRN PRN Reason: Nausea/Vomiting Pneumococcal Polyvalent Vaccine (Pneumovax 23 Vaccine) 0.5 ml IM .ONCE ONE Stop: 11/26/17 09:01 - Labs Labs: 11/26/17 05:35 11/26/17 05:35 PT 11.1 Seconds (9.8-13.1) 11/25/17 14:51 INR 1.0 (0.9-1.2) 11/25/17 14:51 APTT 31.7 Seconds (25.6-37.1) 11/25/17 14:51 - Constitutional Appears: Well, Non-toxic, No Acute Distress - Head Exam Head Exam: ATRAUMATIC - Eye Exam Eye Exam: Normal appearance - ENT Exam ENT Exam: Normal Exam - Neck Exam Neck Exam: Full ROM, Normal Inspection - Respiratory Exam Respiratory Exam: Wheezes, NORMAL BREATHING PATTERN. absent: Rales, Rhonchi - Cardiovascular Exam Cardiovascular Exam: REGULAR RHYTHM, +S1, +S2 - GI/Abdominal Exam GI & Abdominal Exam: Soft, Normal Bowel Sounds Additional comments: Pain on palpation of the right upper quadrant - Rectal Exam Rectal Exam: Deferred - Extremities Exam Extremities Exam: Full ROM, Normal Capillary Refill, Normal Inspection. absent : Calf Tenderness, Joint Swelling, Pedal Edema, Tenderness - Back Exam Back Exam: Full ROM, NORMAL INSPECTION - Neurological Exam Neurological Exam: Alert, Awake, Oriented x3 - Psychiatric Exam Psychiatric exam: Normal Affect, Normal Mood - Skin Skin Exam: Intact, Normal Color, Warm Assessment and Plan - Assessment and Plan (Free Text) Assessment: 87 years old female patient with PMHx of HTN, Arthritis, back surgery was evaluated for stomach pain secondary to cholelithiasis. Plan: 1). Biliary Cholic with cholelithiasis - Abdominal US: - Cholelithiasis. Reported positive sonographic Bass's sign, although there is no additional convincing evidence of acute cholecystitis. - Abdominal CT: - Severe Sigmoid Diverticulosis without sign of inflammation Cholelithiasis with out sign of Cholecystitis - Echo for pre-op clearance - pending -Consult Surgery Dr Pineda - Recommendations appreciated - Plan for cholecystectomy tomorrow -NPO after midnight -IV Fluids -Pain management 2). Dehydration - IV fluids - follow Renal labs 3). Hx of Stomach Pains and blood in stool - Consult Dr Henry GI for Possible EGD - Follow Occult blood - Pepcid 4). HTN - Toprol 50 mg PO - Follow vital signs 5). Hyperlipidemia - Atorvastatin 10 mg PO 5). DVD Prophylaxis - SCD - Ambulating <Jyoti Schmidt - Last Filed: 11/26/17 15:32> Objective - Vital Signs/Intake and Output Vital Signs (last 24 hours): Temp Pulse Resp BP Pulse Ox 97.9 F 69 20 159/74 H 94 L 11/26/17 08:09 11/26/17 08:09 11/26/17 08:09 11/26/17 08:09 11/26/17 08:09 - Medications Medications: Current Medications Atorvastatin Calcium (Lipitor) 10 mg PO HS [facility] Last Admin: 11/26/17 08:55 Dose: 10 mg Famotidine (Pepcid) 20 mg IVP DAILY [facility] Last Admin: 11/26/17 08:55 Dose: 20 mg Dextrose/Sodium Chloride (Dextrose 5%-0.9% Ns 500 Ml) 500 mls @ 75 mls/hr IV .Q6H40M [facility] Stop: 11/26/17 21:53 Last Admin: 11/26/17 11:34 Dose: 75 mls/hr Potassium Chloride/Dextrose/Sod Cl (Potassium Chl 20 Meq In D5-1/2ns) 1,000 mls @ 100 mls/hr IV .Q10H [facility] Stop: 11/27/17 11:26 Latanoprost (Xalatan Opht) 1 drop OU HS [facility] Lidocaine HCl (Lidocaine Hydrochloride Jelly 2% 5 Ml) 1 ml TOP ONCE ONE Stop: 11/26/17 15:46 Metoprolol Succinate (Toprol Xl) 50 mg PO DAILY [facility] Last Admin: 11/26/17 08:55 Dose: 50 mg Morphine Sulfate (Morphine) 2 mg IVP Q4 PRN PRN Reason: Pain, severe (8-10) Ondansetron HCl (Zofran Inj) 4 mg IVP Q4 PRN PRN Reason: Nausea/Vomiting - Labs Labs: 11/26/17 05:35 11/26/17 05:35 PT 11.1 Seconds (9.8-13.1) 11/25/17 14:51 INR 1.0 (0.9-1.2) 11/25/17 14:51 APTT 31.7 Seconds (25.6-37.1) 11/25/17 14:51 Attending/Attestation - Attestation I have personally seen and examined this patient.: Yes I have fully participated in the care of the patient.: Yes I have reviewed all pertinent clinical information, including history, physical exam and plan: Yes Notes (Text): 11/26/17 15:31 seen examined discussed [facility] resident dr. katherine meyer. agree with findings and plan as above Cardiology preop evaluation, Dr. Derrell Garrett also requested
[2017-11-26] MEDS: Metoprolol Succinate 50 mg XL Tab PO SCH (08:55)
[2017-11-26] MEDS ORDERED: Pneumococcal 23-Valent Vaccine IM ONE (09:00)
[2017-11-26] MEDS ORDERED: BIMATOPROST PO SCH (09:00)
--- NOTE | 2017-11-26 10:51 | CP.PCM.PCO ---
Physician Communication Note - Physician Communication Note Physician Communication Note: OR for lap tyesha tomorrow 1230: needs medical clearance
--- NOTE | 2017-11-26 11:06 | US ---
HISTORY: RUQ US COMPARISON: None. TECHNIQUE: Sonographic evaluation of the right upper quadrant of the abdomen. FINDINGS: LIVER: Measures 11.6 cm in length. Patent portal vein. Portal venous flow: Hepatopetal. Unremarkeable echogenicity of the liver parenchyma. No mass. No intrahepatic bile duct dilatation. GALLBLADDER: Cholelithiasis. Positive sonographic Bass's sign. COMMON BILE DUCT: Measures 3.2 mm. No stones. No dilatation. PANCREAS: Unremarkable as visualized. No mass. No ductal dilatation. RIGHT KIDNEY: Measures 3.8 x 10.1 cm in length. Normal echogenicity. No calculus, mass, or hydronephrosis.Incidental finding(s): Simple cyst lower pole 2.8 x 3.3 x 3.6 cm AORTA: No aneurysmal dilatation. IVC: Unremarkable. OTHER FINDINGS: None . IMPRESSION: Cholelithiasis, positive sonographic Bass's sign presumptive evidence for acute cholecystitis.
[2017-11-26] MEDS ORDERED: Lidocaine 2% GEL TOP ONE (14:42)
[2017-11-26] MEDS ORDERED: Lidocaine 2% Jelly (5 ml) TOP ONE (15:45)
[2017-11-26] MEDS: Potassium Ch 20mEq in D5-1/2NS 1,000 ML IV SCH ×2 (17:29→21:40)
--- NOTE | 2017-11-26 19:36 | CP.PCM.CON ---
History of Present Illness - History of Present Illness History of Present Illness: 87 yo female with h/o arthritis and hypertension admitted with abdominal pain. Pain is severe and right sided. Has been present for 2 months but worst over past 2 weeks. Review of Systems - Constitutional Constitutional: absent: Chills - EENT Eyes: absent: Blurred Vision Ears: absent: Ear Discharge Nose/Mouth/Throat: absent: Epistaxis - Cardiovascular Cardiovascular: absent: Chest Pain - Respiratory Respiratory: absent: Dyspnea - Gastrointestinal Gastrointestinal: As Per HPI Past Patient History - Past Medical History & Family History Past Medical History?: Yes - Past Social History Smoking Status: Never Smoked - CARDIAC Hx Hypercholesterolemia: Yes Hx Hypertension: Yes - PULMONARY Hx Respiratory Disorders: No - NEUROLOGICAL Hx Neurological Disorder: No - HEENT Hx HEENT Problems: No - RENAL Hx Chronic Kidney Disease: No - ENDOCRINE/METABOLIC Hx Endocrine Disorders: No - HEMATOLOGICAL/ONCOLOGICAL Hx Blood Disorders: No - INTEGUMENTARY Hx Dermatological Problems: No - MUSCULOSKELETAL/RHEUMATOLOGICAL Hx Arthritis: Yes Hx Falls: No - GASTROINTESTINAL Hx Gastrointestinal Disorders: No - GENITOURINARY/GYNECOLOGICAL Hx Genitourinary Disorders: No - PSYCHIATRIC Hx Depression: Yes Hx Substance Use: No - SURGICAL HISTORY Hx Appendectomy: Yes - ANESTHESIA Hx Anesthesia: Yes Hx Anesthesia Reactions: No Hx Malignant Hyperthermia: No Meds Allergies/Adverse Reactions: Allergies Allergy/AdvReac Type Severity Reaction Status Date / Time No Known Allergies Allergy Verified 10/02/16 10:31 - Medications Medications: Current Medications Atorvastatin Calcium (Lipitor) 10 mg PO [facility] Last Admin: 11/26/17 08:55 Dose: 10 mg Famotidine (Pepcid) 20 mg IVP DAILY [facility] Last Admin: 11/26/17 08:55 Dose: 20 mg Dextrose/Sodium Chloride (Dextrose 5%-0.9% Ns 500 Ml) 500 mls @ 75 mls/hr IV .Q6H40M [facility] Stop: 11/26/17 21:53 Last Admin: 11/26/17 18:26 Dose: Not Given Potassium Chloride/Dextrose/Sod Cl (Potassium Chl 20 Meq In D5-1/2ns) 1,000 mls @ 100 mls/hr IV .Q10H [facility] Stop: 11/27/17 11:26 Last Admin: 11/26/17 17:29 Dose: 100 mls/hr Latanoprost (Xalatan Opht) 1 drop OU HS [facility] Metoprolol Succinate (Toprol Xl) 50 mg PO DAILY [facility] Last Admin: 11/26/17 08:55 Dose: 50 mg Morphine Sulfate (Morphine) 2 mg IVP Q4 PRN PRN Reason: Pain, severe (8-10) Ondansetron HCl (Zofran Inj) 4 mg IVP Q4 PRN PRN Reason: Nausea/Vomiting Physical Exam - Constitutional Appears: No Acute Distress - Head Exam Head Exam: ATRAUMATIC - Eye Exam Eye Exam: Normal appearance - Respiratory Exam Respiratory Exam: Clear to Auscultation Bilateral - Cardiovascular Exam Cardiovascular Exam: REGULAR RHYTHM, +S1, +S2 - GI/Abdominal Exam GI & Abdominal Exam: Guarding, Normal Bowel Sounds, Soft, Tenderness Additional comments: RUQ Results - Vital Signs Recent Vital Signs: Last Vital Signs Temp 98.5 F 11/26/17 16:47 Pulse 79 11/26/17 16:47 Resp 20 11/26/17 16:47 BP 148/71 11/26/17 16:47 Pulse Ox 96 11/26/17 16:47 - Labs Result Diagrams: 11/26/17 05:35 11/26/17 05:35 Labs: Laboratory Results - last 24 hr 11/26/17 11/26/17 05:35 05:35 WBC 3.6 L RBC 3.61 L Hgb 12.0 Hct 35.3 MCV 97.7 MCH 33.1 H MCHC 33.9 RDW 13.3 Plt Count 129 L MPV 8.3 Neut % (Auto) 59.6 Lymph % (Auto) 16.7 L [place] % (Auto) 22.0 H Eos % (Auto) 1.1 Baso % (Auto) 0.6 Neut # 2.1 Lymph # 0.6 L [place] # 0.8 Eos # 0.0 Baso # 0.0 Sodium 137 Potassium 4.0 Chloride 101 Carbon Dioxide 31 H Anion Gap 9 L BUN 19 H Creatinine 0.8 Est GFR ( Amer) > 60 Est GFR (Non-Af Amer) > 60 Random Glucose 98 Calcium 8.9 - Imaging and Cardiology CT scan - abdomen Status: Report reviewed by me US - abdomen Status: Report reviewed by me Assessment & Plan (1) Abdominal pain Assessment and Plan: Patient with RUQ pain, gallstones,y and sonographic Bass's sign. Scheduled tomorrow for surgery. Also has diverticulosis but no evidence of diverticulitis. Status: Acute
[2017-11-26] MEDS: Latanoprost 0.005% Opht SOUTION OU SCH (21:39)
[2017-11-27 06:36] LABS: BASO % 0.2 % (0.0-2.0); EOS % 0.1 % (0.0-4.0); LYMPH # 0.7 K/uL (1.0-4.3); LYMPH % 10.5 % (20.0-40.0); MEAN CELL VOLUME 97.9 fl (81.0-99.0); MEAN CORPUSCULAR HGB CONC 33.7 g/dL (33.0-37.0); MEAN PLATELET VOLUME 8.8 fl (7.2-11.7); MONO # 0.8 K/uL (0.0-0.8); MONO % 11.9 % (0.0-10.0); NEUT % 77.3 % (50.0-75.0); NRBC % 0.1 % (0.0-0.0); RBC 3.64 Mil/uL (3.80-5.20); RED CELL DISTRIBUTION WIDTH 13.3 % (11.5-14.5); WHITE BLOOD COUNT 6.5 K/uL (4.8-10.8)
[2017-11-27 06:47] LABS: ALB/GLOB RATIO 1.2 (1.0-2.1); ALBUMIN 3.5 g/dL (3.5-5.0); ALT/SGPT 27 U/L (9-52); AST/SGOT 28 U/L (14-36); BLOOD UREA NITROGEN 13 mg/dl (7-17); CALCIUM 8.7 mg/dL (8.4-10.2); GFR AFRICAN-AMERICAN > 60; GFR NON-AFRICAN AMERICAN 60
[2017-11-27 07:06] LABS: PROTHROMBIN TIME 12.7 Seconds (9.8-13.1)
[2017-11-27 07:07] LABS: INR 1.1 (0.9-1.2); PARTIAL THROMBOPLASTIN TIME 32.2 Seconds (25.6-37.1)
[2017-11-27] MEDS ORDERED: Albuterol-Ipratrop 3 mg / 0.5 (3 ml) UD INH STA ×2 (09:14→14:50)
--- NOTE | 2017-11-27 09:17 | CP.PCM.CON ---
History of Present Illness - History of Present Illness History of Present Illness: This 87-year-old hypertensive female came into the emergency room complaining of severe abdominal pains. The patient has found out to be having cholecystitis and is scheduled for possible surgical intervention. This consultation was requested as part of her evaluation before proceeding with surgery. The patient was seen with her niece in attendance. The patient has a long history of hypertension but she denies being a diabetic or having ever experienced any chest pain or myocardial infarction or symptoms of congestive cardiac failure. She was never a smoker. She denies any episode of related edema or sudden orthopnea. She denies any thyroid disorder. Physical examination shows a pleasant elderly female who was able to lie virtually flat in bed and carry on a conversation. She bleeds at 16 breaths per minute and has a heart rate of 78 bpm and regular and a blood pressure of 140/ 70 mmHg. Her jugular venous pressure was not elevated and there was no edema over her lower extremity. The pedal pulses were well felt. There were no carotid bruits. The apex was not palpable. The first and second heart sounds were normal. There was no murmur or gallop there were no rales. Her extremities were warm and her nailbeds were pink. There was no central or peripheral cyanosis or icterus. Her electric cardiogram showed sinus rhythm with a normal EKG pattern. Her echocardiogram showed a normal left ventricular systolic function with a mildly elevated and very artery systolic pressure. The inferior vena cava was of normal size. The lab data shows a hemoglobin and hematocrit of 12 g and 35.6% respectively BUN and creatinine with 13 and 0.9 mg percent and electrolytes were normal. Impression: Acute cholecystitis with cholelithiasis. History of hypertension. The patient is stable to proceed with the planned surgery under necessary anesthesia. Past Patient History - Past Medical History & Family History Past Medical History?: Yes - Past Social History Smoking Status: Never Smoked - CARDIAC Hx Hypercholesterolemia: Yes Hx Hypertension: Yes - PULMONARY Hx Respiratory Disorders: No - NEUROLOGICAL Hx Neurological Disorder: No - HEENT Hx HEENT Problems: No - RENAL Hx Chronic Kidney Disease: No - ENDOCRINE/METABOLIC Hx Endocrine Disorders: No - HEMATOLOGICAL/ONCOLOGICAL Hx Blood Disorders: No - INTEGUMENTARY Hx Dermatological Problems: No - MUSCULOSKELETAL/RHEUMATOLOGICAL Hx Arthritis: Yes Hx Falls: No - GASTROINTESTINAL Hx Gastrointestinal Disorders: No - GENITOURINARY/GYNECOLOGICAL Hx Genitourinary Disorders: No - PSYCHIATRIC Hx Depression: Yes Hx Substance Use: No - SURGICAL HISTORY Hx Appendectomy: Yes - ANESTHESIA Hx Anesthesia: Yes Hx Anesthesia Reactions: No Hx Malignant Hyperthermia: No Meds Allergies/Adverse Reactions: Allergies Allergy/AdvReac Type Severity Reaction Status Date / Time No Known Allergies Allergy Verified 10/02/16 10:31 - Medications Medications: Current Medications Atorvastatin Calcium (Lipitor) 10 mg PO HS COUNT INCLUDES THE [facility] Last Admin: 11/26/17 21:39 Dose: 10 mg Famotidine (Pepcid) 20 mg IVP DAILY COUNT INCLUDES THE [facility] Last Admin: 11/26/17 08:55 Dose: 20 mg Potassium Chloride/Dextrose/Sod Cl (Potassium Chl 20 Meq In D5-1/2ns) 1,000 mls @ 100 mls/hr IV .Q10H COUNT INCLUDES THE [facility] Stop: 11/27/17 11:26 Last Admin: 11/26/17 21:40 Dose: Not Given Latanoprost (Xalatan Opht) 1 drop OU HS COUNT INCLUDES THE [facility] Last Admin: 11/26/17 21:39 Dose: 1 drop Metoprolol Succinate (Toprol Xl) 50 mg PO DAILY COUNT INCLUDES THE [facility] Last Admin: 11/26/17 08:55 Dose: 50 mg Morphine Sulfate (Morphine) 2 mg IVP Q4 PRN PRN Reason: Pain, severe (8-10) Ondansetron HCl (Zofran Inj) 4 mg IVP Q4 PRN PRN Reason: Nausea/Vomiting Results - Vital Signs Recent Vital Signs: Last Vital Signs Temp 98.2 F 11/27/17 08:29 Pulse 82 11/27/17 08:29 Resp 20 11/27/17 08:29 BP 147/82 11/27/17 08:29 Pulse Ox 92 L 11/27/17 08:29 - Labs Result Diagrams: 11/27/17 06:15 11/27/17 06:15 Labs: Laboratory Results - last 24 hr 11/27/17 11/27/17 11/27/17 06:15 06:15 06:15 WBC 6.5 D RBC 3.64 L Hgb 12.0 Hct 35.6 MCV 97.9 MCH 33.0 H MCHC 33.7 RDW 13.3 Plt Count 126 L MPV 8.8 Neut % (Auto) 77.3 H Lymph % (Auto) 10.5 L Lincoln % (Auto) 11.9 H Eos % (Auto) 0.1 Baso % (Auto) 0.2 Neut # 5.0 Lymph # 0.7 L Lincoln # 0.8 Eos # 0.0 Baso # 0.0 PT 12.7 INR 1.1 APTT 32.2 Sodium 136 Potassium 4.0 Chloride 101 Carbon Dioxide 26 Anion Gap 13 BUN 13 Creatinine 0.9 Est GFR ( Amer) > 60 Est GFR (Non-Af Amer) 60 Random Glucose 128 H Calcium 8.7 Total Bilirubin 0.5 AST 28 ALT 27 Alkaline Phosphatase 42 Total Protein 6.4 Albumin 3.5 Globulin 2.9 Albumin/Globulin Ratio 1.2
[2017-11-27] MEDS: Metoprolol Succinate 50 mg XL Tab PO SCH (09:32)
[2017-11-27] MEDS: Potassium Ch 20mEq in D5-1/2NS 1,000 ML IV SCH (09:36)
--- NOTE | 2017-11-27 10:57 | CARD ---
APPROVED REPORT EXAM: Two-dimensional and M-mode echocardiogram with Doppler and color Doppler. Other Information Quality : AverageRhythm : NSR INDICATION Pre-Op 2D DIMENSIONS IVSd1.72 (0.7-1.1cm)LVDd3.86 (3.9-5.9cm) LVOT Diameter1.77 (1.8-2.4cm)PWd1.04 (0.7-1.1cm) IVSs1.37 (0.8-1.2cm)LVDs2.21 (2.5-4.0cm) FS (%) 42.6 %PWs1.40 (0.8-1.2cm) M-Mode DIMENSIONS Left Atrium (MM)4.52 (2.5-4.0cm)IVSd1.08 (0.7-1.1cm) Aortic Root2.67 (2.2-3.7cm)LVDd4.72 (4.0-5.6cm) Aortic Cusp Exc.1.60 (1.5-2.0cm)PWd1.08 (0.7-1.1cm) IVSs1.76 cmFS (%) 67 % LVDs1.54 (2.0-3.8cm)PWs1.38 cm Mitral Valve MV E Lvyuhnwe58.4cm/sMV DECEL [id number] A Iiielpoc338.4cm/s MV SHD75afP/A ratio0.8MVA (PHT)3.08cm2 TDI Lateral E' Peak V6.44cm/sMedial E' Peak V6.11cm/sE/Lateral E'12.5 E/Medial E'13.2 Tricuspid Valve TR Peak Kchtuyuu523rm/sRAP [id number] Peak Gr.37mmHg [id number] LEFT VENTRICLE The left ventricle is normal size. There is mild to moderate left ventricular hypertrophy. The left ventricular function is normal. The left ventricular ejection fraction is 55-60% There is normal LV segmental wall motion. Transmitral Doppler flow pattern is Grade I-abnormal relaxation pattern. No left ventricle thrombus noted on this study. There is no ventricular septal defect visualized. There is no left ventricular aneurysm. There is no mass noted in the left ventricle. RIGHT VENTRICLE The right ventricle is normal size. There is normal right ventricular wall thickness. The right ventricular systolic function is normal. ATRIA The left atrium size is normal. The right atrium size is normal. The interatrial septum is intact with no evidence for an atrial septal defect. AORTIC VALVE The aortic valve is moderately sclerotic. No aortic regurgitation is present. There is no aortic valvular stenosis. There is no aortic valvular vegetation. MITRAL VALVE The mitral valve is normal in structure. Mitral annular calcification is moderate to severe. There is no evidence of mitral valve prolapse. There is no mitral valve stenosis. There is no mitral valve regurgitation noted. TRICUSPID VALVE The tricuspid valve is normal in structure. There is moderate tricuspid regurgitation. There is no tricuspid valve prolapse or vegetation. There is no tricuspid valve stenosis. PULMONIC VALVE The pulmonary valve is normal in structure. There is no pulmonic valvular regurgitation. There is no pulmonic valvular stenosis. GREAT VESSELS The aortic root is normal in size. The ascending aorta is normal in size. The IVC is normal in size and collapses >50% with inspiration. PERICARDIAL EFFUSION The pericardium appears normal. There is no pleural effusion. <Conclusion> Normal LV Systolic Function Aortic Valve Sclerosis Mitral Annular Calcification
--- NOTE | 2017-11-27 11:08 | CP.PCM.PN ---
<Darleen Howell - Last Filed: 11/27/17 16:30> Subjective - Date & Time of Evaluation Date of Evaluation: 11/27/17 Time of Evaluation: 08:40 - Subjective Subjective: 87 years old female patient with PMHx of HTN, Arthritis, back surgery was seen and evaluated at bedside for stomach pain. Patient is AAOx3 and is in NAD. Patient denies of any acute overnight events. Patient denies of having any recent F/N/V/C/SOB/CP/headache/diarrhea. Denies of having any other complains at this time. Objective - Vital Signs/Intake and Output Vital Signs (last 24 hours): Temp Pulse Resp BP Pulse Ox 98.2 F 82 20 147/82 92 L 11/27/17 08:29 11/27/17 08:29 11/27/17 08:29 11/27/17 08:29 11/27/17 08:29 - Medications Medications: Current Medications Atorvastatin Calcium (Lipitor) 10 mg PO HS [facility] Last Admin: 11/26/17 21:39 Dose: 10 mg Famotidine (Pepcid) 20 mg IVP DAILY [facility] Last Admin: 11/27/17 09:33 Dose: 20 mg Potassium Chloride/Dextrose/Sod Cl (Potassium Chl 20 Meq In D5-1/2ns) 1,000 mls @ 100 mls/hr IV .Q10H [facility] Stop: 11/27/17 11:26 Last Admin: 11/27/17 09:36 Dose: Not Given Latanoprost (Xalatan Opht) 1 drop OU HS [facility] Last Admin: 11/26/17 21:39 Dose: 1 drop Metoprolol Succinate (Toprol Xl) 50 mg PO DAILY [facility] Last Admin: 11/27/17 09:32 Dose: 50 mg Morphine Sulfate (Morphine) 2 mg IVP Q4 PRN PRN Reason: Pain, severe (8-10) Ondansetron HCl (Zofran Inj) 4 mg IVP Q4 PRN PRN Reason: Nausea/Vomiting - Labs Labs: 11/27/17 06:15 11/27/17 06:15 PT 12.7 Seconds (9.8-13.1) 11/27/17 06:15 INR 1.1 (0.9-1.2) 11/27/17 06:15 APTT 32.2 Seconds (25.6-37.1) 11/27/17 06:15 - Constitutional Appears: Well, Non-toxic, No Acute Distress - Head Exam Head Exam: ATRAUMATIC - Eye Exam Eye Exam: Normal appearance - ENT Exam ENT Exam: Normal Exam - Neck Exam Neck Exam: Full ROM, Normal Inspection - Respiratory Exam Respiratory Exam: Clear to Ausculation Bilateral, Wheezes, NORMAL BREATHING PATTERN. absent: Rales, Rhonchi - Cardiovascular Exam Cardiovascular Exam: REGULAR RHYTHM, +S1, +S2 - GI/Abdominal Exam GI & Abdominal Exam: Soft, Tenderness, Normal Bowel Sounds. absent: Mass, Organomegaly Additional comments: Tenderness in RUQ during palpation - Rectal Exam Rectal Exam: Deferred - Extremities Exam Extremities Exam: Full ROM, Normal Capillary Refill, Normal Inspection. absent : Calf Tenderness - Back Exam Back Exam: Full ROM, NORMAL INSPECTION - Neurological Exam Neurological Exam: Alert, Awake, Oriented x3 - Psychiatric Exam Psychiatric exam: Normal Affect, Normal Mood - Skin Skin Exam: Intact, Normal Color, Warm Assessment and Plan - Assessment and Plan (Free Text) Assessment: 87 years old female patient with PMHx of HTN, Arthritis, back surgery was evaluated for stomach pain secondary to cholelithiasis. Plan: 1). Biliary Cholic with cholelithiasis - Abdominal US: - Cholelithiasis. Reported positive sonographic Bass's sign, although there is no additional convincing evidence of acute cholecystitis. - Abdominal CT: - Severe Sigmoid Diverticulosis without sign of inflammation Cholelithiasis with out sign of Cholecystitis - Echo for pre-op clearance - EF 55-60% - Consult Cardiology - Dr. Garrett; Recommendations appreciated - Patient is stable to proceed to surgery -Consult Surgery Dr Pineda - Recommendations appreciated - Plan for cholecystectomy today -NPO -IV Fluids -Pain management 2). Dehydration - IV fluids - follow Renal labs 3). Hx of Stomach Pains and blood in stool - Consult Dr Henry GI - Recommendations appreciated - diverticulosis but no evidence of diverticulitis. - Follow Occult blood - Pepcid 4). HTN - Toprol 50 mg PO - Follow vital signs 5). Hyperlipidemia - Atorvastatin 10 mg PO 5). DVD Prophylaxis - SCD - Ambulating <Jyoti Schmidt - Last Filed: 11/30/17 07:27> Objective - Vital Signs/Intake and Output Vital Signs (last 24 hours): Temp Pulse Resp BP Pulse Ox 97.4 F L 101 H 21 121/71 95 11/30/17 05:30 11/30/17 05:30 11/30/17 05:30 11/30/17 06:11 11/30/17 05:30 - Medications Medications: Current Medications Acetylcysteine (Acetylcysteine 20%) 3 ml IH RBID [facility] Stop: 12/02/17 20:01 Albuterol/Ipratropium (Duoneb 3 Mg/0.5 Mg (3 Ml) Ud) 3 ml INH Q6H [facility] Last Admin: 11/30/17 07:15 Dose: 3 ml Atorvastatin Calcium (Lipitor) 10 mg PO HS [facility] Last Admin: 11/29/17 21:13 Dose: 10 mg Enoxaparin Sodium (Lovenox) 30 mg SC DAILY [facility] PRN Reason: Protocol Famotidine (Pepcid) 20 mg PO DAILY [facility] Guaifenesin (Mucinex La) 600 mg PO Q12 [facility] Last Admin: 11/29/17 21:13 Dose: 600 mg Hydromorphone HCl (Dilaudid) 0.5 mg IVP Q4 PRN PRN Reason: Pain, severe (8-10) Last Admin: 11/28/17 11:00 Dose: 0.5 mg Piperacillin Sod/Tazobactam (Sod 2.25 gm/ Sodium Chloride) 100 mls @ 100 mls/ hr IVPB Q8 [facility] PRN Reason: Protocol Last Admin: 11/30/17 00:07 Dose: 100 mls/hr Lactated Ringer's (Lactated Ringer's) 1,000 mls @ 10 mls/hr IV .Q24H [facility] Last Admin: 11/30/17 06:18 Dose: 10 mls/hr Latanoprost (Xalatan Opht) 1 drop OU HS [facility] Last Admin: 11/29/17 21:13 Dose: 1 drop Metoprolol Succinate (Toprol Xl) 50 mg PO DAILY [facility] Last Admin: 11/29/17 09:10 Dose: 50 mg Morphine Sulfate (Morphine) 4 mg IVP Q4 PRN PRN Reason: Pain, severe (8-10) Ondansetron HCl (Zofran Inj) 4 mg IVP Q4 PRN PRN Reason: Nausea/Vomiting Last Admin: 11/27/17 18:00 Dose: 4 mg Oxycodone/Acetaminophen (Percocet 5/325 Mg Tab) 1 tab PO Q4 PRN PRN Reason: Pain, Mild (1-3) Stop: 12/01/17 10:57 Last Admin: 11/28/17 15:10 Dose: 1 tab - Labs Labs: 11/29/17 05:30 11/29/17 05:30 PT 12.7 Seconds (9.8-13.1) 11/27/17 06:15 INR 1.1 (0.9-1.2) 11/27/17 06:15 APTT 32.2 Seconds (25.6-37.1) 11/27/17 06:15 Attending/Attestation - Attestation I have personally seen and examined this patient.: Yes I have fully participated in the care of the patient.: Yes I have reviewed all pertinent clinical information, including history, physical exam and plan: Yes Notes (Text): 11/30/17 07:27 Seen and examined with resident Dr. Mary Kate Howell, discussed, agree with findings and plan as above.
--- NOTE | 2017-11-27 11:10 | CARD ---
APPROVED REPORT EKG Measurement Heart [id number] <Conclusion> Normal sinus rhythm Normal ECG
[2017-11-27] MEDS ORDERED: Bupivacaine 0.5% Inj(30mL) ONE (11:42)
[2017-11-27] MEDS ORDERED: Propofol 10 mg/ml Inj (20 ML) ONE (12:05)
[2017-11-27] MEDS ORDERED: ePHEDrine 50 mg/ml Inj ONE (12:05)
[2017-11-27] MEDS ORDERED: Succinylcholine 200 mg/10 ml Inj IV ONE (12:07)
[2017-11-27] MEDS ORDERED: Rocuronium 10 mg/ml (5 ml) ONE (12:07)
[2017-11-27] MEDS ORDERED: Etomidate 20 mg/10ml Inj IV ONE (12:08)
[2017-11-27] MEDS ORDERED: Lidocaine 4% (Laryng-O-Jet) Kit MM ONE (12:08)
[2017-11-27] MEDS ORDERED: Lactated Ringer's 1,000 ML IV ONE ×2 (12:34→16:00)
[2017-11-27] MEDS ORDERED: Sevoflurane - Inhalation Anesthetic Liq (250 ml) ONE (12:53)
[2017-11-27] MEDS ORDERED: Dexamethasone 4 mg/1 ml ONE (13:03)
[2017-11-27] MEDS ORDERED: Phenylephrine 10 mg/ml Inj ONE (13:04)
[2017-11-27] MEDS ORDERED: Bupivacaine 0.5% 50 ML IJ ONE ×4 (13:11→14:09)
--- NOTE | 2017-11-27 14:16 | PCM.SURG1 ---
Surgeon's Initial Post Op Note - Surgeon's Notes Surgeon: Dr Lawler, Dr Pineda Psychologist Developmental: Dr Harper PGY3, Dr Oropeza PGY1 Type of Anesthesia: General Endo Pre-Operative Diagnosis: biliary colic Operative Findings: see report Post-Operative Diagnosis: as above Operation Performed: laparoscopic cholecystectomy. primary closure of iatrogenic enterotomy Specimen/Specimens Removed: gallbladder Estimated Blood Loss: EBL {In ML}: 20 Blood Products Given: N/A Drains Used: No Drains Post-Op Condition: Good Date of Surgery/Procedure: 11/27/17 Time of Surgery/Procedure: 14:16
[2017-11-27] MEDS ORDERED: Lactated Ringer's 1,000 ML IV SCH ×2 (14:45→15:33)
[2017-11-27] MEDS ORDERED: Albuterol-Ipratrop 3 mg / 0.5 (3 ml) UD INH ONE (14:53)
[2017-11-27] MEDS ORDERED: Albuterol-Ipratrop 3 mg / 0.5 (3 ml) UD ONE (14:56)
--- NOTE | 2017-11-27 17:45 | OP ---
PROCEDURE DATE: PREOPERATIVE DIAGNOSIS: Symptomatic cholelithiasis. POSTOPERATIVE DIAGNOSIS: Symptomatic cholelithiasis. PROCEDURE: Laparoscopic cholecystectomy and repair of enterotomy. SURGEON: Michael Lawler MD. CONSTRUCTION ACCOUNTANT: Dr. Pineda. SECOND CONSTRUCTION ACCOUNTANT: Dr. Harper. THIRD CONSTRUCTION ACCOUNTANT: Dr. Oropeza. TYPE OF ANESTHESIA: General with endotracheal intubation. ANESTHESIA ADMINISTERED BY: Carlota Valencia MD. INTRAOPERATIVE FINDINGS: Cholelithiasis. IV FLUID INTAKE: Crystalloids. ESTIMATED BLOOD LOSS: 20 mL. SPECIMEN: Gallbladder. BRIEF HISTORY: Mrs. Pierce is a very pleasant 87-year-old female who came to the hospital complaining of epigastric right upper quadrant abdominal pain on and off and the patient could not deal with the pain, so came to the hospital for evaluation. Upon further evaluation, the patient was found to have a gallstone in the neck of the gallbladder, but no signs of cholecystitis; however, the patient wished for surgery, so she was taken to the operating room above-stated procedure. All the risks and benefits of the procedure were explained to the patient and with the patient having a full understanding of all the risks and benefits involved, informed consent was obtained and the patient was taken to the operating room for above-stated procedure. DESCRIPTION OF PROCEDURE: The patient was brought into the operating room and placed supine on the operating table. Bilateral Flowtron boots were applied to the patient's lower extremities. After successful induction of anesthesia and successful endotracheal intubation by the Anesthesia team, the patient's abdomen was prepped with ChloraPrep stick and draped in the standard surgical fashion. Prior to the beginning of the procedure, time-out was called in the room and everyone in the room were in agreement. Using Veress needle, the patient's abdomen was entered at the umbilicus and pneumoperitoneum was achieved with good opening pressures. Once this was accomplished, using 11-blade scalpel knife, approximately 1 cm incision was made in the umbilicus in a longitudinal fashion and subsequent to that, 11 mm trocar was introduced into the patient's abdomen. At this point in time, 5 mm 0-degree scope was introduced into the patient's abdomen; however, we could not visualize the abdomen, so decision was made to go optically from the right side. Using the 11-blade scalpel knife, 5 mm incision was made in the transverse fashion on the right side of the patient's abdomen and the patient's abdomen was entered under direct visualization using 5 mm Optiview Visiport. Once the patient's abdomen was entered, a 5 mm 0-degree scope was introduced into the patient's abdomen and abdomen was inspected. We immediately were able to visualize extensive adhesions to the anterior abdominal wall from prior surgery that the patient had. At this point in time, using the 11 blade scalpel knife, another 5 mm incision was made on the right side of the patient's abdomen and subsequent to that another 5 mm trocar was introduced into the patient's abdomen. At this point in time, using laparoscopic scissor, the adhesions to the anterior abdominal wall were taken down with laparoscopic scissors and once the adhesions were freed up, it appeared that the prior placed 11 mm trocar entered the small bowel in adhesive bands, so at this point in time, a 5 mm 0-degree scope was introduced into the umbilical port and subsequent to that attention was turned to the subxiphoid area. Using 11-blade scalpel knife, 5 mm incision was made in a transverse fashion in the subxiphoid area. Subsequent to that, another 5 mm trocar was introduced into the patient's abdomen. At that point in time, gallbladder was grasped at the fundus and infundibulum and using [place] dissector, cystic duct and cystic artery were dissected out and critical view of safety was achieved. At that point in time, cystic duct was clipped with 2 clips proximal and 1 distal and transected with laparoscopic scissors. Same thing was done for the cystic artery, it was clipped with 2 clips proximal and 1 distal and transected with laparoscopic scissors. At this point in time, gallbladder was dissected off the gallbladder fossa using hook electrical cautery and once the gallbladder was completely freed up from the gallbladder fossa, EndoCatch bag was introduced into the patient's abdomen. Gallbladder was placed inside of the bag and the bag was closed. At this point in time, gallbladder fossa and abdominal cavity were copiously irrigated with sterile saline and the fluid was suctioned out. Once this was accomplished, our attention was turned to the umbilical area. Using a 15-blade scalpel knife, approximately 5 cm incision was made longitudinally slightly above the umbilicus and extended below the umbilicus and subsequent to that dissection was carried down with electrical cautery. At this point in time, we encountered the extensive adhesions into the small bowel. The adhesions were freed up with Metzenbaum scissors and bluntly with finger dissection and loops of small bowel were brought up and exteriorized into the wound. At this point in time, the enterotomy was identified. It measured approximately 5 mm, so once the loop was identified, several interrupted 3-0 silk sutures on SH needle were used to close the defect in a transverse fashion and once this was accomplished, the suture line was inspected, appeared to be satisfactory. There appeared to be no extravasation of succus. At this point in time, bowel was reduced back and the fascial layer was closed with several interrupted #1 Prolene sutures in a [id number] fashion. Once this was accomplished, the pneumoperitoneum was achieved again and 5 mm 0-degree scope was introduced into the patient's abdomen. The abdomen was inspected. Hemostasis was confirmed and at this point in time, the patient's abdomen was fully desufflated. The rest of the trocars were removed form the patient's abdomen and the gallbladder was removed through the midline incision. At this point in time, once the patient's abdomen was fully desufflated, the skin was closed with 4-0 Monocryl suture in a running subcuticular fashion. At the end of the procedure, incision sites were infiltrated with Marcaine anesthetic. The patient's abdomen was washed and dried and a Dermabond was applied to the site of the incision. The patient was successfully extubated by the Anesthesia team, transferred to the stretcher and taken to the recovery room in a stable condition. At the end of the procedure, all instrument counts, needles and sponges were correct. Michael Lawler MD [facility]
[2017-11-27] MEDS ORDERED: Clindamycin in NS 300 MG/50 ML BAG IVPB SCH (21:00)
[2017-11-27] MEDS: Latanoprost 0.005% Opht SOUTION OU SCH (22:37)
[2017-11-28 06:35] LABS: BASO % 0.1 % (0.0-2.0); HEMOGLOBIN 13.1 g/dL (12.0-16.0); LYMPH # 0.4 K/uL (1.0-4.3); LYMPH % 2.6 % (20.0-40.0); MEAN CELL VOLUME 97.3 fl (81.0-99.0); MEAN CORPUSCULAR HEMOGLOBIN 32.7 pg (27.0-31.0); MEAN CORPUSCULAR HGB CONC 33.6 g/dL (33.0-37.0); MEAN PLATELET VOLUME 8.6 fl (7.2-11.7); MONO # 0.7 K/uL (0.0-0.8); MONO % 4.8 % (0.0-10.0); NEUT # 14.1 K/uL (1.8-7.0); NEUT % 92.5 % (50.0-75.0); PLATELET COUNT 137 K/uL (130-400); RBC 4.02 Mil/uL (3.80-5.20); RED CELL DISTRIBUTION WIDTH 13.5 % (11.5-14.5); WHITE BLOOD COUNT 15.2 K/uL (4.8-10.8)
[2017-11-28 07:04] LABS: BLOOD UREA NITROGEN 16 mg/dl (7-17); CALCIUM 8.6 mg/dL (8.4-10.2); GFR AFRICAN-AMERICAN > 60; GFR NON-AFRICAN AMERICAN > 60
[2017-11-28] MEDS: Metoprolol Succinate 50 mg XL Tab PO SCH (08:34)
--- NOTE | 2017-11-28 08:36 | CP.PCM.PN ---
<LeroyTwin collins Clary - Last Filed: 11/28/17 08:45> Subjective - Date & Time of Evaluation Date of Evaluation: 11/28/17 Time of Evaluation: 08:45 - Subjective Subjective: General Surgery: Dr Lawler Pt S&E. POD#1 s/p laparoscopic cholecystectomy. Pt reports pain significantly improved. Had single episode of nausea last night which has since resolved. Pt denies emesis, f/c, sob. Passing flatus but no BM yet. Is OOB to chair. Using incentive spirometer. Objective - Vital Signs/Intake and Output Vital Signs (last 24 hours): Temp Pulse Resp BP Pulse Ox 97.1 F L 95 H 20 120/74 96 11/28/17 08:08 11/28/17 08:08 11/28/17 08:08 11/28/17 08:08 11/28/17 08:08 - Medications Medications: Current Medications Atorvastatin Calcium (Lipitor) 10 mg PO HS [facility] Last Admin: 11/27/17 22:37 Dose: 10 mg Enoxaparin Sodium (Lovenox) 40 mg SC DAILY [facility] PRN Reason: Protocol Last Admin: 11/28/17 08:34 Dose: 40 mg Famotidine (Pepcid) 20 mg IVP DAILY [facility] Last Admin: 11/28/17 08:34 Dose: 20 mg Hydromorphone HCl (Dilaudid) 0.5 mg IVP Q4 PRN PRN Reason: Pain, severe (8-10) Last Admin: 11/27/17 18:47 Dose: 0.5 mg Lactated Ringer's (Lactated Ringer's) 1,000 mls @ 100 mls/hr IV .Q10H [facility] Latanoprost (Xalatan Opht) 1 drop OU HS [facility] Last Admin: 11/27/17 22:37 Dose: 1 drop Metoprolol Succinate (Toprol Xl) 50 mg PO DAILY [facility] Last Admin: 11/28/17 08:34 Dose: 50 mg Morphine Sulfate (Morphine) 4 mg IVP Q4 PRN PRN Reason: Pain, severe (8-10) Ondansetron HCl (Zofran Inj) 4 mg IVP Q4 PRN PRN Reason: Nausea/Vomiting Last Admin: 11/27/17 18:00 Dose: 4 mg - Labs Labs: 11/28/17 06:10 11/28/17 06:10 PT 12.7 Seconds (9.8-13.1) 11/27/17 06:15 INR 1.1 (0.9-1.2) 11/27/17 06:15 APTT 32.2 Seconds (25.6-37.1) 11/27/17 06:15 - Constitutional Appears: Non-toxic, No Acute Distress - ENT Exam ENT Exam: Mucous Membranes Moist - Respiratory Exam Respiratory Exam: absent: Respiratory Distress - Cardiovascular Exam Cardiovascular Exam: REGULAR RHYTHM. absent: Tachycardia - GI/Abdominal Exam GI & Abdominal Exam: Soft, Tenderness (post-op and appropriate). absent: Distended, Firm, Guarding, Rigid, Rebound Additional comments: incisions c/d/i, minimal erythema to lower umbilical incision - Neurological Exam Neurological Exam: Alert, Awake, Oriented x3 - Psychiatric Exam Psychiatric exam: Normal Affect, Normal Mood - Skin Skin Exam: Normal Color, Warm Assessment and Plan - Assessment and Plan (Free Text) Assessment: 87F POD#1 s/p lap cholecystectomy Plan: adv to liquid diet OOB and ambulate incentive spirometer pain control PRN will cont to monitor closely d/w Dr Bucky Harper, PGY3 <Michael Lawler - Last Filed: 11/28/17 10:59> Subjective - Date & Time of Evaluation Time of Evaluation: 10:10 - Subjective Subjective: Patient was seen and examined at the bedside. Agree with resident's note above Objective - Vital Signs/Intake and Output Vital Signs (last 24 hours): Temp Pulse Resp BP Pulse Ox 97.1 F L 95 H 20 120/74 96 11/28/17 08:08 11/28/17 08:08 11/28/17 08:08 11/28/17 08:08 11/28/17 08:08 - Medications Medications: Current Medications Atorvastatin Calcium (Lipitor) 10 mg PO HS [facility] Last Admin: 11/27/17 22:37 Dose: 10 mg Enoxaparin Sodium (Lovenox) 40 mg SC DAILY [facility] PRN Reason: Protocol Last Admin: 11/28/17 08:34 Dose: 40 mg Famotidine (Pepcid) 20 mg IVP DAILY [facility] Last Admin: 11/28/17 08:34 Dose: 20 mg Hydromorphone HCl (Dilaudid) 0.5 mg IVP Q4 PRN PRN Reason: Pain, severe (8-10) Last Admin: 11/27/17 18:47 Dose: 0.5 mg Lactated Ringer's (Lactated Ringer's) 1,000 mls @ 100 mls/hr IV .Q10H [facility] Latanoprost (Xalatan Opht) 1 drop OU HS [facility] Last Admin: 11/27/17 22:37 Dose: 1 drop Metoprolol Succinate (Toprol Xl) 50 mg PO DAILY [facility] Last Admin: 11/28/17 08:34 Dose: 50 mg Morphine Sulfate (Morphine) 4 mg IVP Q4 PRN PRN Reason: Pain, severe (8-10) Ondansetron HCl (Zofran Inj) 4 mg IVP Q4 PRN PRN Reason: Nausea/Vomiting Last Admin: 11/27/17 18:00 Dose: 4 mg Oxycodone/Acetaminophen (Percocet 5/325 Mg Tab) 1 tab PO Q4 PRN PRN Reason: Pain, Mild (1-3) Stop: 12/01/17 10:57 - Labs Labs: 11/28/17 06:10 11/28/17 06:10 PT 12.7 Seconds (9.8-13.1) 11/27/17 06:15 INR 1.1 (0.9-1.2) 11/27/17 06:15 APTT 32.2 Seconds (25.6-37.1) 11/27/17 06:15 Assessment and Plan - Assessment and Plan (Free Text) Plan: - Keep NPO - IV fluids - pain control - Insentive spirometry - DVT ppx - repeat labs in am - Will follow
[2017-11-28] MEDS ORDERED: Enoxaparin 40 mg Syringe SC SCH (09:00)
--- NOTE | 2017-11-28 10:19 | CP.PCM.PN ---
Subjective - Date & Time of Evaluation Date of Evaluation: 11/28/17 Time of Evaluation: 08:30 - Subjective Subjective: 87 years old female patient with PMHx of HTN, Arthritis, back surgery was seen and evaluated at bedside with her daughter 1 day s/p cholecystectomy. Patient is AAOx3 and is in NAD. Patient denies of any acute overnight events. Patient admits that she has little pain but she is managing it well with medications. Patient denies of having any recent F/N/V/C/SOB/CP/headache/diarrhea. Denies of having any other complains at this time. Objective - Vital Signs/Intake and Output Vital Signs (last 24 hours): Temp Pulse Resp BP Pulse Ox 97.1 F L 95 H 20 120/74 96 11/28/17 08:08 11/28/17 08:08 11/28/17 08:08 11/28/17 08:08 11/28/17 08:08 - Medications Medications: Current Medications Atorvastatin Calcium (Lipitor) 10 mg PO HS [facility] Last Admin: 11/27/17 22:37 Dose: 10 mg Enoxaparin Sodium (Lovenox) 40 mg SC DAILY [facility] PRN Reason: Protocol Last Admin: 11/28/17 08:34 Dose: 40 mg Famotidine (Pepcid) 20 mg IVP DAILY [facility] Last Admin: 11/28/17 08:34 Dose: 20 mg Hydromorphone HCl (Dilaudid) 0.5 mg IVP Q4 PRN PRN Reason: Pain, severe (8-10) Last Admin: 11/27/17 18:47 Dose: 0.5 mg Lactated Ringer's (Lactated Ringer's) 1,000 mls @ 100 mls/hr IV .Q10H [facility] Latanoprost (Xalatan Opht) 1 drop OU HS [facility] Last Admin: 11/27/17 22:37 Dose: 1 drop Metoprolol Succinate (Toprol Xl) 50 mg PO DAILY [facility] Last Admin: 11/28/17 08:34 Dose: 50 mg Morphine Sulfate (Morphine) 4 mg IVP Q4 PRN PRN Reason: Pain, severe (8-10) Ondansetron HCl (Zofran Inj) 4 mg IVP Q4 PRN PRN Reason: Nausea/Vomiting Last Admin: 11/27/17 18:00 Dose: 4 mg - Labs Labs: 11/28/17 06:10 11/28/17 06:10 PT 12.7 Seconds (9.8-13.1) 11/27/17 06:15 INR 1.1 (0.9-1.2) 11/27/17 06:15 APTT 32.2 Seconds (25.6-37.1) 11/27/17 06:15 - Constitutional Appears: Well, Non-toxic, No Acute Distress - Head Exam Head Exam: ATRAUMATIC - Eye Exam Eye Exam: Normal appearance - ENT Exam ENT Exam: Normal Exam - Neck Exam Neck Exam: Full ROM, Normal Inspection - Respiratory Exam Respiratory Exam: Wheezes, NORMAL BREATHING PATTERN. absent: Rales, Rhonchi - Cardiovascular Exam Cardiovascular Exam: REGULAR RHYTHM, +S1, +S2 - GI/Abdominal Exam GI & Abdominal Exam: Soft, Normal Bowel Sounds - Rectal Exam Rectal Exam: Deferred - Extremities Exam Extremities Exam: Full ROM, Normal Capillary Refill, Normal Inspection. absent : Calf Tenderness, Joint Swelling, Pedal Edema, Tenderness - Back Exam Back Exam: Full ROM, NORMAL INSPECTION - Neurological Exam Neurological Exam: Alert, Awake, Oriented x3 - Psychiatric Exam Psychiatric exam: Normal Affect, Normal Mood - Skin Skin Exam: Intact, Normal Color, Warm Assessment and Plan - Assessment and Plan (Free Text) Assessment: 87 years old female patient with PMHx of HTN, Arthritis, back surgery was evaluated 1 day s/p cholecystectomy. Plan: 1). Biliary Cholic with cholelithiasis - Abdominal US: - Cholelithiasis. Reported positive sonographic Bass's sign, although there is no additional convincing evidence of acute cholecystitis. - Abdominal CT: - Severe Sigmoid Diverticulosis without sign of inflammation Cholelithiasis with out sign of Cholecystitis - Echo for pre-op clearance - EF 55-60% -Consult Surgery Dr Pineda - Recommendations appreciated - 1 day s/p Cholecystectomy -NPO -IV Fluids - monitor -Pain management 2). Iatrogenic Enterotomy - Leukocytosis - continue to monitor labs - IV Zosyn 3). Dyspnea - Nasal cannula @ 2L - Insentive spirometry - Duoneb - Lasix - CXR - pending 3). Hx of Stomach Pains and blood in stool - Consult Dr Henry GI - Recommendations appreciated - diverticulosis but no evidence of diverticulitis. - Follow Occult blood - Pepcid 4). HTN - Toprol 50 mg PO - Follow vital signs 5). Hyperlipidemia - Atorvastatin 10 mg PO 5). DVD Prophylaxis - SCD - Lovenox 40 mg - Ambulating
[2017-11-28] MEDS ORDERED: Oxycodone/Acetaminophen 5/325 mg Tab PO PRN (10:56)
[2017-11-28 12:28] LABS: BANDS 4 % (0-2); LYMPHOCYTE 3 % (20-50); MONOCYTE 7 % (0-10); NEUTROPHIL 85 % (42-75); REACTIVE LYMPHOCYTES 1 % (0-0); TOTAL CELLS COUNTED 100
[2017-11-28 12:29] LABS: PLATELET ESTIMATE NORMAL (NORMAL)
[2017-11-28] MEDS ORDERED: Albuterol-Ipratrop 3 mg / 0.5 (3 ml) UD INH STA (12:31)
[2017-11-28] MEDS: Lactated Ringer's 1,000 ML IV SCH (12:33)
[2017-11-28 12:35] LABS: OVALOCYTES SLIGHT; TOXIC GRANULATION PRESENT
--- NOTE | 2017-11-28 15:02 | RAD ---
PROCEDURE: CHEST RADIOGRAPH, 1 VIEW HISTORY: dyspnea COMPARISON: 11/25/2017 FINDINGS: LUNGS: Clear. PLEURA: No pneumothorax or pleural fluid seen. CARDIOVASCULAR: No radiographic findings to suggest acute or significant cardiovascular disease. OSSEOUS STRUCTURES: No significant abnormalities. VISUALIZED UPPER ABDOMEN: Normal. OTHER FINDINGS: None. IMPRESSION: No active disease. No acute/significant interval changes.
[2017-11-28] MEDS: Piperacillin/Tazobact 3.375 GM in Sodium Chloride 0.9% 100 ML IVPB SCH ×2 (15:12→22:15)
[2017-11-28] MEDS: Albuterol-Ipratrop 3 mg / 0.5 (3 ml) UD INH SCH ×2 (15:58→19:35)
[2017-11-28] MEDS ORDERED: Acetylcysteine 20% Inhal Soln (4ml) INH SCH (17:00)
[2017-11-28] MEDS: Latanoprost 0.005% Opht SOUTION OU SCH (22:16)
[2017-11-29] MEDS: Lactated Ringer's 1,000 ML IV SCH ×2 (01:50→15:03)
[2017-11-29] MEDS: Piperacillin/Tazobact 3.375 GM in Sodium Chloride 0.9% 100 ML IVPB SCH (03:57)
[2017-11-29 06:21] LABS: BASO % 0.1 % (0.0-2.0); HEMOGLOBIN 13.2 g/dL (12.0-16.0); LYMPH # 0.4 K/uL (1.0-4.3); LYMPH % 3.1 % (20.0-40.0); MEAN CELL VOLUME 99.5 fl (81.0-99.0); MEAN CORPUSCULAR HEMOGLOBIN 32.2 pg (27.0-31.0); MEAN CORPUSCULAR HGB CONC 32.4 g/dL (33.0-37.0); MEAN PLATELET VOLUME 9.4 fl (7.2-11.7); MONO # 0.7 K/uL (0.0-0.8); MONO % 5.7 % (0.0-10.0); NEUT # 10.7 K/uL (1.8-7.0); NEUT % 91.1 % (50.0-75.0); PLATELET COUNT 146 K/uL (130-400); RBC 4.09 Mil/uL (3.80-5.20); RED CELL DISTRIBUTION WIDTH 13.5 % (11.5-14.5); WHITE BLOOD COUNT 11.8 K/uL (4.8-10.8)
[2017-11-29 06:40] LABS: ALB/GLOB RATIO 1.1 (1.0-2.1); ALBUMIN 3.5 g/dL (3.5-5.0); CALCIUM 8.9 mg/dL (8.4-10.2)
[2017-11-29] MEDS: Albuterol-Ipratrop 3 mg / 0.5 (3 ml) UD INH SCH ×4 (07:51→19:26)
[2017-11-29] MEDS: Metoprolol Succinate 50 mg XL Tab PO SCH (09:10)
[2017-11-29 10:00] LABS: BANDS 12 % (0-2); LYMPHOCYTE 5 % (20-50); METAMYELOCYTE 1 % (0-0); MONOCYTE 4 % (0-10); NEUTROPHIL 78 % (42-75); PLATELET ESTIMATE SLIGHTLY DECREASED (NORMAL); TOTAL CELLS COUNTED 100
[2017-11-29 10:01] LABS: ANISOCYTOSIS SLIGHT; LARGE PLATELETS PRESENT; OVALOCYTES SLIGHT
--- NOTE | 2017-11-29 11:14 | CP.PCM.PN ---
<Twin Harper - Last Filed: 11/29/17 11:11> Subjective - Date & Time of Evaluation Date of Evaluation: 11/29/17 Time of Evaluation: 11:11 - Subjective Subjective: General Surgery: Dr Lawler Pt S&E. DAISHA. Still NPO. Daughter is bedside assisting with translation. Pt denies any N/V, F/C. Has not been using incentive spirometer. Instructed on use at bedside. Objective - Vital Signs/Intake and Output Vital Signs (last 24 hours): Temp Pulse Resp BP Pulse Ox 98 F 89 22 116/77 98 11/29/17 08:36 11/29/17 09:10 11/29/17 08:36 11/29/17 09:10 11/29/17 08:36 - Medications Medications: Current Medications Acetylcysteine (Acetylcysteine 20%) 3 ml INH RBID [facility] Stop: 11/29/17 20:01 Albuterol/Ipratropium (Duoneb 3 Mg/0.5 Mg (3 Ml) Ud) 3 ml INH RQID [facility] Last Admin: 11/29/17 11:02 Dose: 3 ml Atorvastatin Calcium (Lipitor) 10 mg PO HS [facility] Last Admin: 11/28/17 22:16 Dose: 10 mg Famotidine (Pepcid) 20 mg IVP DAILY [facility] Last Admin: 11/29/17 09:14 Dose: 20 mg Heparin Sodium (Porcine) (Heparin) 5,000 units SC Q12 [facility] PRN Reason: Protocol Last Admin: 11/29/17 09:14 Dose: 5,000 units Hydromorphone HCl (Dilaudid) 0.5 mg IVP Q4 PRN PRN Reason: Pain, severe (8-10) Last Admin: 11/28/17 11:00 Dose: 0.5 mg Lactated Ringer's (Lactated Ringer's) 1,000 mls @ 75 mls/hr IV .[id number] [facility] Last Admin: 11/29/17 01:50 Dose: Not Given Piperacillin Sod/Tazobactam (Sod 2.25 gm/ Sodium Chloride) 100 mls @ 100 mls/ hr IVPB Q8 [facility] PRN Reason: Protocol Last Admin: 11/29/17 09:43 Dose: 100 mls/hr Latanoprost (Xalatan Opht) 1 drop OU HS [facility] Last Admin: 11/28/17 22:16 Dose: 1 drop Metoprolol Succinate (Toprol Xl) 50 mg PO DAILY [facility] Last Admin: 11/29/17 09:10 Dose: 50 mg Morphine Sulfate (Morphine) 4 mg IVP Q4 PRN PRN Reason: Pain, severe (8-10) Ondansetron HCl (Zofran Inj) 4 mg IVP Q4 PRN PRN Reason: Nausea/Vomiting Last Admin: 11/27/17 18:00 Dose: 4 mg Oxycodone/Acetaminophen (Percocet 5/325 Mg Tab) 1 tab PO Q4 PRN PRN Reason: Pain, Mild (1-3) Stop: 12/01/17 10:57 Last Admin: 11/28/17 15:10 Dose: 1 tab - Labs Labs: 11/29/17 05:30 11/29/17 05:30 PT 12.7 Seconds (9.8-13.1) 11/27/17 06:15 INR 1.1 (0.9-1.2) 11/27/17 06:15 APTT 32.2 Seconds (25.6-37.1) 11/27/17 06:15 - Constitutional Appears: Non-toxic, No Acute Distress - ENT Exam ENT Exam: Mucous Membranes Moist - Respiratory Exam Respiratory Exam: Rhonchi, NORMAL BREATHING PATTERN. absent: Accessory Muscle Use, Chest Wall Tenderness, Clear to Ausculation Bilateral - Cardiovascular Exam Cardiovascular Exam: REGULAR RHYTHM. absent: Tachycardia - GI/Abdominal Exam GI & Abdominal Exam: Soft, Tenderness (lori-incisional). absent: Distended, Firm - Neurological Exam Neurological Exam: Alert, Awake, Oriented x3 - Psychiatric Exam Psychiatric exam: Normal Affect, Normal Mood - Skin Skin Exam: Normal Color, Warm Assessment and Plan - Assessment and Plan (Free Text) Assessment: 87F POD#2 s/p lap cholecystectomy Plan: would maintain NPO one more day aggressive chest PT and pulmonary toilet Zosyn now renally dosed given mild GRETCHEN cont IVF d/w Dr Lawler and Dr Ananda Harper, PGY3 <Michael Lawler - Last Filed: 11/29/17 12:33> Subjective - Date & Time of Evaluation Time of Evaluation: 11:50 - Subjective Subjective: Patient was seen and examined at the bedside. Agree with resident's note above. Objective - Vital Signs/Intake and Output Vital Signs (last 24 hours): Temp Pulse Resp BP Pulse Ox 98 F 89 22 116/77 98 11/29/17 08:36 11/29/17 09:10 11/29/17 08:36 11/29/17 09:10 11/29/17 08:36 - Medications Medications: Current Medications Acetylcysteine (Acetylcysteine 20%) 3 ml INH RBID [facility] Stop: 11/29/17 20:01 Albuterol/Ipratropium (Duoneb 3 Mg/0.5 Mg (3 Ml) Ud) 3 ml INH RQID [facility] Last Admin: 11/29/17 11:02 Dose: 3 ml Atorvastatin Calcium (Lipitor) 10 mg PO HS [facility] Last Admin: 11/28/17 22:16 Dose: 10 mg Famotidine (Pepcid) 20 mg IVP DAILY [facility] Last Admin: 11/29/17 09:14 Dose: 20 mg Heparin Sodium (Porcine) (Heparin) 5,000 units SC Q12 [facility] PRN Reason: Protocol Last Admin: 11/29/17 09:14 Dose: 5,000 units Hydromorphone HCl (Dilaudid) 0.5 mg IVP Q4 PRN PRN Reason: Pain, severe (8-10) Last Admin: 11/28/17 11:00 Dose: 0.5 mg Lactated Ringer's (Lactated Ringer's) 1,000 mls @ 75 mls/hr IV .[id number] [facility] Last Admin: 11/29/17 01:50 Dose: Not Given Piperacillin Sod/Tazobactam (Sod 2.25 gm/ Sodium Chloride) 100 mls @ 100 mls/ hr IVPB Q8 [facility] PRN Reason: Protocol Last Admin: 11/29/17 09:43 Dose: 100 mls/hr Latanoprost (Xalatan Opht) 1 drop OU HS [facility] Last Admin: 11/28/17 22:16 Dose: 1 drop Metoprolol Succinate (Toprol Xl) 50 mg PO DAILY [facility] Last Admin: 11/29/17 09:10 Dose: 50 mg Morphine Sulfate (Morphine) 4 mg IVP Q4 PRN PRN Reason: Pain, severe (8-10) Ondansetron HCl (Zofran Inj) 4 mg IVP Q4 PRN PRN Reason: Nausea/Vomiting Last Admin: 11/27/17 18:00 Dose: 4 mg Oxycodone/Acetaminophen (Percocet 5/325 Mg Tab) 1 tab PO Q4 PRN PRN Reason: Pain, Mild (1-3) Stop: 12/01/17 10:57 Last Admin: 11/28/17 15:10 Dose: 1 tab - Labs Labs: 11/29/17 05:30 11/29/17 05:30 PT 12.7 Seconds (9.8-13.1) 11/27/17 06:15 INR 1.1 (0.9-1.2) 11/27/17 06:15 APTT 32.2 Seconds (25.6-37.1) 11/27/17 06:15 Assessment and Plan - Assessment and Plan (Free Text) Plan: - start clear liquid diet - pain control - Insentive spirometry - DVT ppx - Zosyn - Out of bed - Repeat labs in am - Will follow
--- NOTE | 2017-11-29 11:47 | CP.PCM.PN ---
Addendum entered and electronically signed by Darleen Howell DPM 11/29/17 17:18 : Acute Kidney Injury most likely secondary to medication side effect - Zosyn changed from q6 to q8 - Lasix - started Heparin instead of lovenox - Continue hydration - Repeat BMP in morning Lasix discontinued Patient is ambulating Original Note: Subjective - Date & Time of Evaluation Date of Evaluation: 11/29/17 Time of Evaluation: 11:45 - Subjective Subjective: 87 years old female patient with PMHx of HTN, Arthritis, back surgery was seen and evaluated at bedside with her daughter 2 days s/p cholecystectomy. Patient is AAOx3 and is in NAD. Patient denies of any acute overnight events. Patient denies of having any recent F/N/V/C/SOB/CP/headache/diarrhea. Denies of having any other complains at this time. Objective - Vital Signs/Intake and Output Vital Signs (last 24 hours): Temp Pulse Resp BP Pulse Ox 98 F 89 22 116/77 98 11/29/17 08:36 11/29/17 09:10 11/29/17 08:36 11/29/17 09:10 11/29/17 08:36 - Medications Medications: Current Medications Acetylcysteine (Acetylcysteine 20%) 3 ml INH RBID [facility] Stop: 11/29/17 20:01 Albuterol/Ipratropium (Duoneb 3 Mg/0.5 Mg (3 Ml) Ud) 3 ml INH RQID [facility] Last Admin: 11/29/17 11:02 Dose: 3 ml Atorvastatin Calcium (Lipitor) 10 mg PO HS [facility] Last Admin: 11/28/17 22:16 Dose: 10 mg Famotidine (Pepcid) 20 mg IVP DAILY [facility] Last Admin: 11/29/17 09:14 Dose: 20 mg Heparin Sodium (Porcine) (Heparin) 5,000 units SC Q12 [facility] PRN Reason: Protocol Last Admin: 11/29/17 09:14 Dose: 5,000 units Hydromorphone HCl (Dilaudid) 0.5 mg IVP Q4 PRN PRN Reason: Pain, severe (8-10) Last Admin: 11/28/17 11:00 Dose: 0.5 mg Lactated Ringer's (Lactated Ringer's) 1,000 mls @ 75 mls/hr IV .[id number] [facility] Last Admin: 11/29/17 01:50 Dose: Not Given Piperacillin Sod/Tazobactam (Sod 2.25 gm/ Sodium Chloride) 100 mls @ 100 mls/ hr IVPB Q8 [facility] PRN Reason: Protocol Last Admin: 11/29/17 09:43 Dose: 100 mls/hr Latanoprost (Xalatan Opht) 1 drop OU HS [facility] Last Admin: 11/28/17 22:16 Dose: 1 drop Metoprolol Succinate (Toprol Xl) 50 mg PO DAILY [facility] Last Admin: 11/29/17 09:10 Dose: 50 mg Morphine Sulfate (Morphine) 4 mg IVP Q4 PRN PRN Reason: Pain, severe (8-10) Ondansetron HCl (Zofran Inj) 4 mg IVP Q4 PRN PRN Reason: Nausea/Vomiting Last Admin: 11/27/17 18:00 Dose: 4 mg Oxycodone/Acetaminophen (Percocet 5/325 Mg Tab) 1 tab PO Q4 PRN PRN Reason: Pain, Mild (1-3) Stop: 12/01/17 10:57 Last Admin: 11/28/17 15:10 Dose: 1 tab - Labs Labs: 11/29/17 05:30 11/29/17 05:30 PT 12.7 Seconds (9.8-13.1) 11/27/17 06:15 INR 1.1 (0.9-1.2) 11/27/17 06:15 APTT 32.2 Seconds (25.6-37.1) 11/27/17 06:15 - Constitutional Appears: Well, Non-toxic, No Acute Distress - Head Exam Head Exam: ATRAUMATIC - Eye Exam Eye Exam: Normal appearance - ENT Exam ENT Exam: Normal Exam - Neck Exam Neck Exam: Full ROM, Normal Inspection - Respiratory Exam Respiratory Exam: Wheezes, NORMAL BREATHING PATTERN. absent: Rales, Rhonchi - Cardiovascular Exam Cardiovascular Exam: REGULAR RHYTHM, +S1, +S2 - GI/Abdominal Exam GI & Abdominal Exam: Soft, Normal Bowel Sounds. absent: Mass, Organomegaly - Rectal Exam Rectal Exam: Deferred - Extremities Exam Extremities Exam: Full ROM, Normal Capillary Refill, Normal Inspection, Pedal Edema. absent: Calf Tenderness, Joint Swelling, Tenderness - Back Exam Back Exam: Full ROM, NORMAL INSPECTION - Neurological Exam Neurological Exam: Alert, Awake, Oriented x3 - Psychiatric Exam Psychiatric exam: Normal Affect, Normal Mood - Skin Skin Exam: Intact, Normal Color, Warm Assessment and Plan - Assessment and Plan (Free Text) Assessment: 87 years old female patient with PMHx of HTN, Arthritis, back surgery was evaluated 2 days s/p cholecystectomy. Plan: 1). Biliary Cholic with cholelithiasis - Abdominal US: - Cholelithiasis. Reported positive sonographic Bass's sign, although there is no additional convincing evidence of acute cholecystitis. - Abdominal CT: - Severe Sigmoid Diverticulosis without sign of inflammation Cholelithiasis with out sign of Cholecystitis - Echo for pre-op clearance - EF 55-60% -Consult Surgery Dr Pineda - Recommendations appreciated - 2 days s/p Cholecystectomy -Clear liquid diet -IV Fluids - monitor -Pain management 2). Iatrogenic Enterotomy - Leukocytosis - continue to monitor labs - IV Zosyn 3). Dyspnea r/o atelectasis vs. pleural effusion - Nasal cannula @ 2L - Insentive spirometry - Duoneb - Lasix - CXR - No active disease. No acute/significant interval changes 3). Hx of Stomach Pains and blood in stool - Consult Dr Henry GI - Recommendations appreciated - diverticulosis but no evidence of diverticulitis. - Follow Occult blood - Pepcid 4). HTN - Toprol 50 mg PO - Follow vital signs 5). Hyperlipidemia - Atorvastatin 10 mg PO 5). DVD Prophylaxis - SCD
[2017-11-29] MEDS ORDERED: Acetylcysteine 20% Inhal Soln (10ml) IH SCH (15:30)
[2017-11-29] MEDS ORDERED: Acetylcysteine 20% Inhal Soln (4ml) IH SCH (19:00)
[2017-11-29] MEDS: guaiFENesin 600 mg ER Tab PO SCH (21:13)
[2017-11-29] MEDS: Latanoprost 0.005% Opht SOUTION OU SCH (21:13)
--- NOTE | 2017-11-30 06:01 | CP.PCM.PN ---
Subjective - Date & Time of Evaluation Date of Evaluation: 11/30/17 Time of Evaluation: 05:59 - Subjective Subjective: General Surgery: DR Lawler Pt S&E. JIMENEZO. POD#3 s/p laparoscopic cholecystectomy. Pt is OOB and in the chair. Much more comfortable than yesterday. HAs been tolerating CLD. PAssing flatus. States abdominal pain much better. HAs been using incentive spirometer with assistance of nursing staff and family, and doing much better with it. Cough has improved as well. Denies N/v, F/C. Continues to have sob with exertion but improving. Objective - Vital Signs/Intake and Output Vital Signs (last 24 hours): Temp Pulse Resp BP Pulse Ox 98 F 106 H 20 150/71 94 L 11/30/17 00:25 11/30/17 00:25 11/30/17 00:25 11/30/17 00:25 11/30/17 00:25 - Medications Medications: Current Medications Acetylcysteine (Acetylcysteine 20%) 3 ml IH RBID [facility] Stop: 12/02/17 20:01 Albuterol/Ipratropium (Duoneb 3 Mg/0.5 Mg (3 Ml) Ud) 3 ml INH RQID [facility] Last Admin: 11/29/17 19:26 Dose: 3 ml Atorvastatin Calcium (Lipitor) 10 mg PO HS [facility] Last Admin: 11/29/17 21:13 Dose: 10 mg Enoxaparin Sodium (Lovenox) 30 mg SC DAILY [facility] PRN Reason: Protocol Famotidine (Pepcid) 20 mg PO DAILY [facility] Guaifenesin (Mucinex La) 600 mg PO Q12 [facility] Last Admin: 11/29/17 21:13 Dose: 600 mg Hydromorphone HCl (Dilaudid) 0.5 mg IVP Q4 PRN PRN Reason: Pain, severe (8-10) Last Admin: 11/28/17 11:00 Dose: 0.5 mg Lactated Ringer's (Lactated Ringer's) 1,000 mls @ 75 mls/hr IV .[id number] [facility] Last Admin: 11/29/17 15:03 Dose: 75 mls/hr Piperacillin Sod/Tazobactam (Sod 2.25 gm/ Sodium Chloride) 100 mls @ 100 mls/ hr IVPB Q8 [facility] PRN Reason: Protocol Last Admin: 11/30/17 00:07 Dose: 100 mls/hr Latanoprost (Xalatan Opht) 1 drop OU HS [facility] Last Admin: 11/29/17 21:13 Dose: 1 drop Metoprolol Succinate (Toprol Xl) 50 mg PO DAILY [facility] Last Admin: 11/29/17 09:10 Dose: 50 mg Morphine Sulfate (Morphine) 4 mg IVP Q4 PRN PRN Reason: Pain, severe (8-10) Ondansetron HCl (Zofran Inj) 4 mg IVP Q4 PRN PRN Reason: Nausea/Vomiting Last Admin: 11/27/17 18:00 Dose: 4 mg Oxycodone/Acetaminophen (Percocet 5/325 Mg Tab) 1 tab PO Q4 PRN PRN Reason: Pain, Mild (1-3) Stop: 12/01/17 10:57 Last Admin: 11/28/17 15:10 Dose: 1 tab - Labs Labs: 11/29/17 05:30 11/29/17 05:30 PT 12.7 Seconds (9.8-13.1) 11/27/17 06:15 INR 1.1 (0.9-1.2) 11/27/17 06:15 APTT 32.2 Seconds (25.6-37.1) 11/27/17 06:15 - Constitutional Appears: Non-toxic, No Acute Distress - Respiratory Exam Respiratory Exam: absent: Accessory Muscle Use, Respiratory Distress - Cardiovascular Exam Cardiovascular Exam: REGULAR RHYTHM. absent: Tachycardia - GI/Abdominal Exam GI & Abdominal Exam: Soft. absent: Distended, Firm, Guarding, Rigid, Tenderness - Neurological Exam Neurological Exam: Alert, Awake, Oriented x3 - Psychiatric Exam Psychiatric exam: Normal Affect, Normal Mood - Skin Skin Exam: Normal Color, Warm Assessment and Plan - Assessment and Plan (Free Text) Assessment: 87F POD#3 s/p laparoscopic cholecystectomy Plan: cont OOB and ambulate cont IS use pain control/anti-emetics PRN will hold off on advancing diet until pt is evaluated by attending who will be in later today Leroy, PGY3
[2017-11-30] MEDS: Lactated Ringer's 1,000 ML IV SCH (06:18)
--- NOTE | 2017-11-30 07:01 | CP.PCM.PCO ---
Physician Communication Note - Physician Communication Note Physician Communication Note: Patient not feeling well
[2017-11-30] MEDS ORDERED: Albuterol-Ipratrop 3 mg / 0.5 (3 ml) UD ONE (07:07)
[2017-11-30] MEDS: Albuterol-Ipratrop 3 mg / 0.5 (3 ml) UD INH SCH ×3 (07:15→19:09)
[2017-11-30 07:46] LABS: HEMOGLOBIN 11.5 g/dL (12.0-16.0); LYMPH # 0.3 K/uL (1.0-4.3); LYMPH % 2.2 % (20.0-40.0); MEAN CELL VOLUME 98.3 fl (81.0-99.0); MEAN CORPUSCULAR HEMOGLOBIN 32.6 pg (27.0-31.0); MEAN CORPUSCULAR HGB CONC 33.2 g/dL (33.0-37.0); MEAN PLATELET VOLUME 8.8 fl (7.2-11.7); MONO # 0.6 K/uL (0.0-0.8); MONO % 4.6 % (0.0-10.0); NEUT # 11.7 K/uL (1.8-7.0); NEUT % 93.2 % (50.0-75.0); NRBC % 0.1 % (0.0-0.0); RBC 3.52 Mil/uL (3.80-5.20); RED CELL DISTRIBUTION WIDTH 13.8 % (11.5-14.5); WHITE BLOOD COUNT 12.6 K/uL (4.8-10.8)
[2017-11-30 08:10] LABS: ALBUMIN 3.2 g/dL (3.5-5.0); CALCIUM 8.9 mg/dL (8.4-10.2)
[2017-11-30 08:34] LABS: ABG ALLEN TEST YES; ARTERIAL BLOOD GAS HCO3 24.9 mmol/L (21-28); ARTERIAL BLOOD GAS HEMOGLOBIN 12.4 g/dL (11.7-17.4); ARTERIAL BLOOD GAS O2 CAPACITY 16.9 mL/dL (16-24); ARTERIAL BLOOD GAS O2 CONTENT 16.2 ML/dL (15-23); ARTERIAL BLOOD GAS O2 SAT 95.7 % (95-98); ARTERIAL BLOOD GAS PCO2 39 mm/Hg (35-45); ARTERIAL BLOOD GAS PH 7.41 (7.35-7.45); ARTERIAL BLOOD GAS PO2 63 mm/Hg (80-100); ARTERIAL BLOOD GAS TCO2 25.9 mmol/L (22-28)
[2017-11-30] MEDS ORDERED: Enoxaparin 30 mg Syringe SC SCH (09:00)
[2017-11-30] MEDS: Metoprolol Succinate 50 mg XL Tab PO SCH (09:02)
[2017-11-30] MEDS: guaiFENesin 600 mg ER Tab PO SCH ×2 (09:03→22:23)
--- NOTE | 2017-11-30 10:49 | RAD ---
HISTORY: SOB/Crackles both lung rober[place]on COMPARISON: Comparison chest dated 11/28/2017 FINDINGS: LUNGS: Poor inspiration with low lung volumes crowded bronchovascular markings and bibasilar atelectasis. There is persistent elevation right hemidiaphragm possibly due to eventration. . . PLEURA: No significant pleural effusion identified, no pneumothorax apparent. CARDIOVASCULAR: Heart is mildly enlarged. OSSEOUS STRUCTURES: No significant abnormalities. VISUALIZED UPPER ABDOMEN: Normal. OTHER FINDINGS: None. IMPRESSION: Poor inspiration with low lung volumes crowded bronchovascular markings and bibasilar atelectasis. There is persistent elevation right hemidiaphragm possibly due to eventration. . .
[2017-11-30 11:25] LABS: TROPONIN I 0.077 ng/mL (0.00-0.120)
[2017-11-30] MEDS ORDERED: Heparin 25,000units in D5W 25,000 UNITS/250 ML BAG IV SCH ×2 (13:30→18:45)
--- NOTE | 2017-11-30 13:41 | CP.PCM.PN ---
Subjective - Date & Time of Evaluation Date of Evaluation: 11/30/17 Time of Evaluation: 13:00 - Subjective Subjective: Pt seen and examined. Noted to have laboured breathing and appeared congested. Denied chest pain. Objective - Vital Signs/Intake and Output Vital Signs (last 24 hours): Temp Pulse Resp BP Pulse Ox 98.2 F 109 H 20 118/75 92 L 11/30/17 08:32 11/30/17 09:02 11/30/17 08:32 11/30/17 09:02 11/30/17 08:32 - Medications Medications: Current Medications Acetylcysteine (Acetylcysteine 20%) 3 ml IH RBID [facility] Stop: 12/02/17 20:01 Albuterol/Ipratropium (Duoneb 3 Mg/0.5 Mg (3 Ml) Ud) 3 ml INH Q6H [facility] Last Admin: 11/30/17 13:27 Dose: 3 ml Atorvastatin Calcium (Lipitor) 10 mg PO HS [facility] Last Admin: 11/29/17 21:13 Dose: 10 mg Famotidine (Pepcid) 20 mg PO DAILY [facility] Last Admin: 11/30/17 09:03 Dose: 20 mg Guaifenesin (Mucinex La) 600 mg PO Q12 [facility] Last Admin: 11/30/17 09:03 Dose: 600 mg Heparin Sodium (Porcine) (Heparin) 5,000 units IVP ONCE ONE PRN Reason: Protocol Stop: 11/30/17 13:15 Hydromorphone HCl (Dilaudid) 0.5 mg IVP Q4 PRN PRN Reason: Pain, severe (8-10) Last Admin: 11/28/17 11:00 Dose: 0.5 mg Piperacillin Sod/Tazobactam (Sod 2.25 gm/ Sodium Chloride) 100 mls @ 100 mls/ hr IVPB Q8 [facility] PRN Reason: Protocol Last Admin: 11/30/17 09:01 Dose: 100 mls/hr Lactated Ringer's (Lactated Ringer's) 1,000 mls @ 10 mls/hr IV .Q24H [facility] Last Admin: 11/30/17 06:18 Dose: 10 mls/hr Heparin Sodium/Dextrose (Heparin 25,000 Units/250ml In D5w) 25,000 units in 250 mls @ 10 mls/hr IV .Q24H [facility] PRN Reason: Protocol Latanoprost (Xalatan Opht) 1 drop OU HS [facility] Last Admin: 11/29/17 21:13 Dose: 1 drop Metoprolol Succinate (Toprol Xl) 50 mg PO DAILY [facility] Last Admin: 11/30/17 09:02 Dose: 50 mg Morphine Sulfate (Morphine) 4 mg IVP Q4 PRN PRN Reason: Pain, severe (8-10) Ondansetron HCl (Zofran Inj) 4 mg IVP Q4 PRN PRN Reason: Nausea/Vomiting Last Admin: 11/27/17 18:00 Dose: 4 mg Oxycodone/Acetaminophen (Percocet 5/325 Mg Tab) 1 tab PO Q4 PRN PRN Reason: Pain, Mild (1-3) Stop: 12/01/17 10:57 Last Admin: 11/28/17 15:10 Dose: 1 tab - Labs Labs: 11/30/17 05:25 11/30/17 05:25 PT 12.7 Seconds (9.8-13.1) 11/27/17 06:15 INR 1.1 (0.9-1.2) 11/27/17 06:15 APTT 32.2 Seconds (25.6-37.1) 11/27/17 06:15 - Head Exam Head Exam: ATRAUMATIC - Eye Exam Eye Exam: absent: Scleral icterus - ENT Exam ENT Exam: Mucous Membranes Moist - Neck Exam Neck Exam: absent: Meningismus - Respiratory Exam Respiratory Exam: absent: Rhonchi, Wheezes - Cardiovascular Exam Cardiovascular Exam: Tachycardia - GI/Abdominal Exam GI & Abdominal Exam: Soft. absent: Tenderness - Rectal Exam Rectal Exam: Deferred - Extremities Exam Extremities Exam: absent: Calf Tenderness Assessment and Plan - Assessment and Plan (Free Text) Assessment: 87 yo female with history of HTN and Arthritis S/P Cholecystectomy noted to have laboured breathing and chest congestion today. Denied chest pain. 1. R/O PE serum DDimer: 4887 ProBNP: [address] scan with contrast because of deteriorating renal function Venous Doppler of both LE VQ scan pulmonary consult with Dr Brambila PTT, PT/INR will start anticoagulation with Heparin transfer to telemetry 2. Biliary Cholic with cholelithiasis S/P Cholecystectomy, day 3 Pain management 3. HTN BP stable Toprol 50 mg PO 4. Hyperlipidemia Atorvastatin 10 mg PO
[2017-11-30 13:56] LABS: PARTIAL THROMBOPLASTIN TIME 35.6 Seconds (25.6-37.1); PROTHROMBIN TIME 11.3 Seconds (9.8-13.1)
--- NOTE | 2017-11-30 17:27 | US ---
PROCEDURE: Bilateral lower extremity venous duplex Doppler. HISTORY: r/o DVT COMPARISON: None available. TECHNIQUE: Bilateral common femoral, superficial femoral, popliteal and posterior tibial veins were evaluated. Flow was assessed with color Doppler, compressibility, assessment of phasic flow and augmentation response. FINDINGS: COMMON FEMORAL VEIN: Right CFV: Unremarkable. Left CFV: Unremarkable. SUPERFICIAL FEMORAL VEIN: Right SFV: Unremarkable. Left SFV: Unremarkable. POPLITEAL VEIN: Right Popliteal: Unremarkable. Left Popliteal: Unremarkable. POSTERIOR TIBIAL VEIN: Right PTV: Unremarkable. Left PTV: Unremarkable. OTHER FINDINGS: None. IMPRESSION: No evidence of deep venous thrombosis.
[2017-11-30] MEDS ORDERED: Albuterol-Ipratrop 3 mg / 0.5 (3 ml) UD INH PRN (17:55)
[2017-11-30] MEDS: Latanoprost 0.005% Opht SOUTION OU SCH (22:24)
[2017-12-01] MEDS: Albuterol-Ipratrop 3 mg / 0.5 (3 ml) UD INH SCH ×4 (01:15→19:03)
[2017-12-01] MEDS ORDERED: Heparin 25,000units in D5W 25,000 UNITS/250 ML BAG IV SCH ×3 (04:35→11:34)
--- NOTE | 2017-12-01 05:43 | CP.PCM.PN ---
Subjective - Date & Time of Evaluation Date of Evaluation: 12/01/17 Time of Evaluation: 05:41 - Subjective Subjective: General Surgery Progress Note for Dr. Pineda This pt was seen and examined this AM at bedside no acute events. Pt has no complaints, denies any abdominal pain, SOB chest pain. LE dupplex negative per pt son the patient has had wet cough and breathing trouble at home. Objective - Vital Signs/Intake and Output Vital Signs (last 24 hours): Temp Pulse Resp BP Pulse Ox 97.8 F 112 H 22 136/84 95 12/01/17 04:30 12/01/17 04:30 12/01/17 04:30 12/01/17 04:30 12/01/17 04:30 - Medications Medications: Current Medications Acetylcysteine (Acetylcysteine 20%) 3 ml IH RBID [facility] Stop: 12/02/17 20:01 Last Admin: 11/30/17 19:09 Dose: 3 ml Albuterol/Ipratropium (Duoneb 3 Mg/0.5 Mg (3 Ml) Ud) 3 ml INH Q6H [facility] Last Admin: 12/01/17 01:15 Dose: 3 ml Albuterol/Ipratropium (Duoneb 3 Mg/0.5 Mg (3 Ml) Ud) 3 ml INH RQ4 PRN PRN Reason: Shortness of Breath Atorvastatin Calcium (Lipitor) 10 mg PO HS [facility] Last Admin: 11/30/17 22:23 Dose: 10 mg Famotidine (Pepcid) 20 mg PO DAILY [facility] Last Admin: 11/30/17 09:03 Dose: 20 mg Guaifenesin (Mucinex La) 600 mg PO Q12 [facility] Last Admin: 11/30/17 22:23 Dose: 600 mg Hydromorphone HCl (Dilaudid) 0.5 mg IVP Q4 PRN PRN Reason: Pain, severe (8-10) Last Admin: 11/28/17 11:00 Dose: 0.5 mg Piperacillin Sod/Tazobactam (Sod 2.25 gm/ Sodium Chloride) 100 mls @ 100 mls/ hr IVPB Q8 [facility] PRN Reason: Protocol Last Admin: 12/01/17 01:37 Dose: 100 mls/hr Lactated Ringer's (Lactated Ringer's) 1,000 mls @ 10 mls/hr IV .Q24H [facility] Last Admin: 11/30/17 06:18 Dose: 10 mls/hr Heparin Sodium/Dextrose (Heparin 25,000 Units/250ml In D5w) 25,000 units in 250 mls @ 10 mls/hr IV .Q24H [facility] PRN Reason: Protocol Last Admin: 12/01/17 05:11 Dose: 10 mls/hr Latanoprost (Xalatan Opht) 1 drop OU HS [facility] Last Admin: 11/30/17 22:24 Dose: 1 drop Metoprolol Succinate (Toprol Xl) 50 mg PO DAILY [facility] Last Admin: 11/30/17 09:02 Dose: 50 mg Morphine Sulfate (Morphine) 4 mg IVP Q4 PRN PRN Reason: Pain, severe (8-10) Ondansetron HCl (Zofran Inj) 4 mg IVP Q4 PRN PRN Reason: Nausea/Vomiting Last Admin: 11/27/17 18:00 Dose: 4 mg Oxycodone/Acetaminophen (Percocet 5/325 Mg Tab) 1 tab PO Q4 PRN PRN Reason: Pain, Mild (1-3) Stop: 12/01/17 10:57 Last Admin: 11/28/17 15:10 Dose: 1 tab - Labs Labs: 11/30/17 05:25 11/30/17 05:25 PT 11.3 Seconds (9.8-13.1) 11/30/17 13:00 INR 1.0 (0.9-1.2) 11/30/17 13:00 APTT 160.4 Seconds (25.6-37.1) H* D 12/01/17 01:32 - Constitutional Appears: Non-toxic, No Acute Distress - Head Exam Head Exam: ATRAUMATIC, NORMOCEPHALIC - Eye Exam Eye Exam: EOMI, Normal appearance - ENT Exam ENT Exam: Mucous Membranes Moist - Respiratory Exam Additional comments: 3L nc, coarse ronchi - Cardiovascular Exam Cardiovascular Exam: +S1, +S2 - GI/Abdominal Exam GI & Abdominal Exam: Soft. absent: Firm, Guarding, Rigid, Tenderness - Neurological Exam Neurological Exam: Alert, Awake Assessment and Plan - Assessment and Plan (Free Text) Assessment: 87F POD#4 s/p Lap tyesha monitor breathing continue incentive spirometry continue pain control OOB Continue management per primary team D/W Dr. Edwin Sanchez PGY2
[2017-12-01] MEDS: Lactated Ringer's 1,000 ML IV SCH (07:15)
[2017-12-01] MEDS ORDERED: Acetylcysteine 20% Inhal Soln (4ml) INH SCH (08:00)
[2017-12-01 08:32] LABS: BASO % 0.1 % (0.0-2.0); HEMOGLOBIN 10.6 g/dL (12.0-16.0); LYMPH # 0.4 K/uL (1.0-4.3); LYMPH % 3.3 % (20.0-40.0); MEAN CORPUSCULAR HEMOGLOBIN 32.1 pg (27.0-31.0); MEAN CORPUSCULAR HGB CONC 32.7 g/dL (33.0-37.0); MEAN PLATELET VOLUME 8.4 fl (7.2-11.7); MONO # 0.8 K/uL (0.0-0.8); MONO % 6.2 % (0.0-10.0); NEUT # 11.9 K/uL (1.8-7.0); NEUT % 90.4 % (50.0-75.0); PLATELET COUNT 152 K/uL (130-400); RBC 3.31 Mil/uL (3.80-5.20); RED CELL DISTRIBUTION WIDTH 13.6 % (11.5-14.5); WHITE BLOOD COUNT 13.1 K/uL (4.8-10.8)
[2017-12-01 09:03] LABS: CALCIUM 8.6 mg/dL (8.4-10.2)
[2017-12-01] MEDS: Metoprolol Succinate 50 mg XL Tab PO SCH (10:42)
[2017-12-01] MEDS: guaiFENesin 600 mg ER Tab PO SCH ×2 (10:42→23:35)
[2017-12-01 11:16] LABS: ANISOCYTOSIS SLIGHT; LYMPHOCYTE 3 % (20-50); MONOCYTE 7 % (0-10); NEUTROPHIL 90 % (42-75); OVALOCYTES SLIGHT; PLATELET ESTIMATE NORMAL (NORMAL); TOTAL CELLS COUNTED 100
[2017-12-01 11:17] LABS: LARGE PLATELETS PRESENT
--- NOTE | 2017-12-01 13:25 | CP.PCM.PN ---
Subjective - Date & Time of Evaluation Date of Evaluation: 12/01/17 Time of Evaluation: 12:00 - Subjective Subjective: The patient was transferred to telemetry unit when she was found to be mildly dyspneic. She was started on IV heparin and has developed GI bleed. She also has received Lasix 60 mg intravenously yesterday and her BUN/creatinine today is significantly elevated. Physical examination shows an elderly lady who is mildly dyspneic at rest while sitting up in a recliner. Her resting rate is rate was 18-20 breaths per minute. Her heart rate was 80 bpm and regular and her blood pressure was 104/70 mmHg. Her jugular venous pressure was not elevated and there was no edema over her lower extremity. Her buccal mucosa was moderately dry. She has mild pallor. Her extremities were warm.. The first and second heart sounds were normal. There were coarse crepitations all over the chest. She had a productive cough. I suspect the rising BUN/creatinine probably represent hypovolemia aggravated by intravenous diuretics given yesterday. Her IV heparin has been discontinued. The patient is on IV antibiotic's and awaits a VQ scan tomorrow. I have started the patient on IV fluids and follow-up CBC will be done to monitor her hemoglobin and hematocrit. And also her renal status will be monitored. Objective - Vital Signs/Intake and Output Vital Signs (last 24 hours): Temp Pulse Resp BP Pulse Ox 98.2 F 106 H 18 118/79 99 12/01/17 12:26 12/01/17 12:26 12/01/17 12:26 12/01/17 12:26 12/01/17 12:26 - Medications Medications: Current Medications Acetylcysteine (Acetylcysteine 20%) 3 ml INH RBID [facility] Stop: 12/04/17 08:01 Albuterol/Ipratropium (Duoneb 3 Mg/0.5 Mg (3 Ml) Ud) 3 ml INH Q6H [facility] Last Admin: 12/01/17 13:00 Dose: 3 ml Albuterol/Ipratropium (Duoneb 3 Mg/0.5 Mg (3 Ml) Ud) 3 ml INH RQ4 PRN PRN Reason: Shortness of Breath Atorvastatin Calcium (Lipitor) 10 mg PO HS [facility] Last Admin: 11/30/17 22:23 Dose: 10 mg Famotidine (Pepcid) 20 mg PO DAILY [facility] Last Admin: 12/01/17 10:42 Dose: 20 mg Guaifenesin (Mucinex La) 600 mg PO Q12 [facility] Last Admin: 12/01/17 10:42 Dose: 600 mg Hydromorphone HCl (Dilaudid) 0.5 mg IVP Q4 PRN PRN Reason: Pain, severe (8-10) Last Admin: 11/28/17 11:00 Dose: 0.5 mg Piperacillin Sod/Tazobactam (Sod 2.25 gm/ Sodium Chloride) 100 mls @ 100 mls/ hr IVPB Q8 [facility] PRN Reason: Protocol Last Admin: 12/01/17 10:44 Dose: 100 mls/hr Lactated Ringer's (Lactated Ringer's) 1,000 mls @ 10 mls/hr IV .Q24H [facility] Last Admin: 12/01/17 07:15 Dose: Not Given Heparin Sodium/Dextrose (Heparin 25,000 Units/250ml In D5w) 25,000 units in 250 mls @ 10 mls/hr IV .Q24H [facility] PRN Reason: Protocol Sodium Chloride (Sodium Chloride 0.9%) 1,000 mls @ 100 mls/hr IV .Q10H [facility] Stop: 12/02/17 13:19 Latanoprost (Xalatan Opht) 1 drop OU HS [facility] Last Admin: 11/30/17 22:24 Dose: 1 drop Metoprolol Succinate (Toprol Xl) 50 mg PO DAILY [facility] Last Admin: 12/01/17 10:42 Dose: 50 mg Morphine Sulfate (Morphine) 4 mg IVP Q4 PRN PRN Reason: Pain, severe (8-10) Ondansetron HCl (Zofran Inj) 4 mg IVP Q4 PRN PRN Reason: Nausea/Vomiting Last Admin: 11/27/17 18:00 Dose: 4 mg Potassium Chloride (K-Dur 20 Meq Er Tab) 20 meq PO BID [facility] Stop: 12/01/17 17:01 - Labs Labs: 12/01/17 07:00 12/01/17 07:00 PT 11.3 Seconds (9.8-13.1) 11/30/17 13:00 INR 1.0 (0.9-1.2) 11/30/17 13:00 APTT 88.8 Seconds (25.6-37.1) H D 12/01/17 10:00
[2017-12-01 13:49] VITALS: BMI 29.5
[2017-12-01] MEDS: Potassium Chloride 20 mEq ER Tab PO SCH (14:08)
[2017-12-01] MEDS: Sodium Chloride 0.9% 1,000 ML IV SCH ×2 (14:08→23:36)
--- NOTE | 2017-12-01 14:50 | CP.PCM.CON ---
History of Present Illness - History of Present Illness History of Present Illness: Initial Nephrology Consultation: Assessment: critical Acute Kidney Injury (N17.9) unclear but possibly due to pre-renal state (as suggested by high BUN, elevated bicarb). r/o urine retention s/p lap tyesha Hypokalemia Anemia, HTN tachycardia being r/o for PE Dyspnoea etiology unclear. normal LVEF and CXR also unremarkable Plan No acute need for renal replacement therapy at this time. Hypertension control with meds as ordered. Patient not on ACEI/ARB due to GRETCHEN Monitor Input/Output, daily weights and renal function with basic metabolic panel Check urine analysis, urine Na/creatinine renal and bladder sonogram. ideally would like to give IVF but once her dyspnoea better. Dose meds/antibiotics for reduced GFR. Avoid fleets enema/magnesium based laxatives. Avoid nephrotoxins/NSAIDs/ iodinated contrast (unless needed emergently) Glycemic control Further work up/management as per primary team Thanks for allowing me to participate in care of your patient. Will follow patient with you. Please call if any Qs. d/w son bedside. d/w team Dr Nimesh Chow Office: [phone] Chief Complaint; feeling weak Reason for consult: GRETCHEN HPI: Pt is a 87 F with hx of hypertension (years), hyperlipidemia presented with complaints of pain abdomen and underwent lap tyesha on 11/27/17 for biliar colic. she had rise in serum cr since 11/29/17 which is progressive worsening hence renal consulted. there was also concerns for PE hence started on heparin drip. she had SOB yesterday which was managed with lasix IV no OTC/herbal meds or NSAIDs No recent iodinated contrast exposure. No obvious episodes of low BP. she feels weak and not eating much son says she had breathing issues for last couple of months, with crackly sounds , like a cough and cold never went away ROS: Cardiovascular: No chest pain. Pulmonary: c/o shortness of breath Gastrointestinal: denies abdominal pain No nausea. No vomiting. Genitourinary: No pain while urinating. Denies blood in urine. All other negative except as in HPI Physical Examination: General Appearance: uncomfortable, has tachypenoia, co-operative . Vitals reviewed and noted as below Head; Atraumatic, normocephalic ENT: no ulcers no thrush. Tongue is midline/dry. Oropharynx: no rash or ulcers. EYES: Pupils are equal, round and reactive to light accommodation. Eye muscles and extraocular movement intact. Sclera is anicteric. Neck; supple no lymphadenopathy, no thyromegaly or bruit Lungs: Increased respiratory rate/effort. Breath sounds bilateral equal and with wheeze and basal crackles Heart: Increased rate. s1s2 normal. No rub or gallop. Extremities: no edema. No varicose veins Neurological: Patient is alert, awake and oriented to person, place and time. No focal deficit. Strength bilateral appropriate and equal Skin: Warm and dry. Normal turgor. No rash. Palpitation: Normal elasticity for age Abdomen: Abdomen is soft. Bowel sounds +. There is no abdominal tenderness, no guarding/rigidity no organomegaly Psych: normal insight and normal affect/mood MSK: no joint tenderness or swelling. Digits and nails normal, no deformity : kidney or bladder not palpable Labs/imaging reviewed. Past medical history, past surgical history, family history, social history, allergy reviewed and noted as below Family hx: no hx of CKD. Rest non-contributory renal imaging: rt renal cyst echo: normal LVEF UA negative Past Patient History - Past Medical History & Family History Past Medical History?: Yes - Past Social History Smoking Status: Never Smoked - CARDIAC Hx Hypercholesterolemia: Yes Hx Hypertension: Yes - PULMONARY Hx Respiratory Disorders: No - NEUROLOGICAL Hx Neurological Disorder: No - HEENT Hx HEENT Problems: No - RENAL Hx Chronic Kidney Disease: No - ENDOCRINE/METABOLIC Hx Endocrine Disorders: No - HEMATOLOGICAL/ONCOLOGICAL Hx Blood Disorders: No - INTEGUMENTARY Hx Dermatological Problems: No - MUSCULOSKELETAL/RHEUMATOLOGICAL Hx Arthritis: Yes Hx Falls: No - GASTROINTESTINAL Hx Gastrointestinal Disorders: No - GENITOURINARY/GYNECOLOGICAL Hx Genitourinary Disorders: No - PSYCHIATRIC Hx Depression: Yes Hx Substance Use: No - SURGICAL HISTORY Hx Appendectomy: Yes - ANESTHESIA Hx Anesthesia: Yes Hx Anesthesia Reactions: No Hx Malignant Hyperthermia: No Meds Allergies/Adverse Reactions: Allergies Allergy/AdvReac Type Severity Reaction Status Date / Time No Known Allergies Allergy Verified 10/02/16 10:31 - Medications Medications: Current Medications Acetylcysteine (Acetylcysteine 20%) 3 ml INH RBID [facility] Stop: 12/04/17 08:01 Albuterol/Ipratropium (Duoneb 3 Mg/0.5 Mg (3 Ml) Ud) 3 ml INH Q6H [facility] Last Admin: 12/01/17 13:00 Dose: 3 ml Albuterol/Ipratropium (Duoneb 3 Mg/0.5 Mg (3 Ml) Ud) 3 ml INH RQ4 PRN PRN Reason: Shortness of Breath Atorvastatin Calcium (Lipitor) 10 mg PO HS [facility] Last Admin: 11/30/17 22:23 Dose: 10 mg Famotidine (Pepcid) 20 mg PO DAILY [facility] Last Admin: 12/01/17 10:42 Dose: 20 mg Guaifenesin (Mucinex La) 600 mg PO Q12 [facility] Last Admin: 12/01/17 10:42 Dose: 600 mg Hydromorphone HCl (Dilaudid) 0.5 mg IVP Q4 PRN PRN Reason: Pain, severe (8-10) Last Admin: 11/28/17 11:00 Dose: 0.5 mg Piperacillin Sod/Tazobactam (Sod 2.25 gm/ Sodium Chloride) 100 mls @ 100 mls/ hr IVPB Q8 [facility] PRN Reason: Protocol Last Admin: 12/01/17 10:44 Dose: 100 mls/hr Lactated Ringer's (Lactated Ringer's) 1,000 mls @ 10 mls/hr IV .Q24H [facility] Last Admin: 12/01/17 07:15 Dose: Not Given Sodium Chloride (Sodium Chloride 0.9%) 1,000 mls @ 100 mls/hr IV .Q10H [facility] Stop: 12/02/17 13:19 Last Admin: 12/01/17 14:08 Dose: 100 mls/hr Latanoprost (Xalatan Opht) 1 drop OU HS [facility] Last Admin: 11/30/17 22:24 Dose: 1 drop Metoprolol Succinate (Toprol Xl) 50 mg PO DAILY [facility] Last Admin: 12/01/17 10:42 Dose: 50 mg Morphine Sulfate (Morphine) 4 mg IVP Q4 PRN PRN Reason: Pain, severe (8-10) Ondansetron HCl (Zofran Inj) 4 mg IVP Q4 PRN PRN Reason: Nausea/Vomiting Last Admin: 11/27/17 18:00 Dose: 4 mg Potassium Chloride (K-Dur 20 Meq Er Tab) 20 meq PO BID [facility] Stop: 12/01/17 17:01 Last Admin: 12/01/17 14:08 Dose: 20 meq Results - Vital Signs Recent Vital Signs: Last Vital Signs Temp 98.2 F 12/01/17 12:26 Pulse 106 H 12/01/17 12:26 Resp 18 12/01/17 12:26 BP 118/79 12/01/17 12:26 Pulse Ox 99 12/01/17 12:26 - Labs Result Diagrams: 12/01/17 07:00 12/01/17 07:00 Labs: Laboratory Results - last 24 hr 12/01/17 12/01/17 12/01/17 01:32 07:00 07:00 WBC 13.1 H RBC 3.31 L Hgb 10.6 L Hct 32.5 L MCV 98.0 MCH 32.1 H MCHC 32.7 L RDW 13.6 Plt Count 152 MPV 8.4 Neut % (Auto) 90.4 H Lymph % (Auto) 3.3 L [place] % (Auto) 6.2 Eos % (Auto) 0.0 Baso % (Auto) 0.1 Neut # 11.9 H Lymph # 0.4 L [place] # 0.8 Eos # 0.0 Baso # 0.0 Neutrophils % (Manual) 90 H Lymphocytes % (Manual) 3 L Monocytes % (Manual) 7 Platelet Estimate Normal Large Platelets Present Anisocytosis (manual) Slight Macrocytosis (manual) Slight Ovalocytes Slight APTT 160.4 H* D Sodium 140 Potassium 3.3 L Chloride 98 Carbon Dioxide 31 H Anion Gap 14 BUN 46 H Creatinine 2.5 H Est GFR ( Amer) 22 Est GFR (Non-Af Amer) 18 Random Glucose 130 H Calcium 8.6 12/01/17 10:00 WBC RBC Hgb Hct MCV MCH MCHC RDW Plt Count MPV Neut % (Auto) Lymph % (Auto) [place] % (Auto) Eos % (Auto) Baso % (Auto) Neut # Lymph # [place] # Eos # Baso # Neutrophils % (Manual) Lymphocytes % (Manual) Monocytes % (Manual) Platelet Estimate Large Platelets Anisocytosis (manual) Macrocytosis (manual) Ovalocytes APTT 88.8 H D Sodium Potassium Chloride Carbon Dioxide Anion Gap BUN Creatinine Est GFR ( Amer) Est GFR (Non-Af Amer) Random Glucose Calcium
--- NOTE | 2017-12-01 14:54 | CP.PCM.PN ---
Subjective - Date & Time of Evaluation Date of Evaluation: 12/01/17 Time of Evaluation: 14:30 - Subjective Subjective: Pt seen and examined. Less dyspneic compared to yesterday. Reported to have bloody stools. Objective - Vital Signs/Intake and Output Vital Signs (last 24 hours): Temp Pulse Resp BP Pulse Ox 98.2 F 106 H 18 118/79 99 12/01/17 12:26 12/01/17 12:26 12/01/17 12:26 12/01/17 12:26 12/01/17 12:26 - Medications Medications: Current Medications Acetylcysteine (Acetylcysteine 20%) 3 ml INH RBID [facility] Stop: 12/04/17 08:01 Albuterol/Ipratropium (Duoneb 3 Mg/0.5 Mg (3 Ml) Ud) 3 ml INH Q6H [facility] Last Admin: 12/01/17 13:00 Dose: 3 ml Albuterol/Ipratropium (Duoneb 3 Mg/0.5 Mg (3 Ml) Ud) 3 ml INH RQ4 PRN PRN Reason: Shortness of Breath Atorvastatin Calcium (Lipitor) 10 mg PO HS [facility] Last Admin: 11/30/17 22:23 Dose: 10 mg Famotidine (Pepcid) 20 mg PO DAILY [facility] Last Admin: 12/01/17 10:42 Dose: 20 mg Guaifenesin (Mucinex La) 600 mg PO Q12 [facility] Last Admin: 12/01/17 10:42 Dose: 600 mg Hydromorphone HCl (Dilaudid) 0.5 mg IVP Q4 PRN PRN Reason: Pain, severe (8-10) Last Admin: 11/28/17 11:00 Dose: 0.5 mg Piperacillin Sod/Tazobactam (Sod 2.25 gm/ Sodium Chloride) 100 mls @ 100 mls/ hr IVPB Q8 [facility] PRN Reason: Protocol Last Admin: 12/01/17 10:44 Dose: 100 mls/hr Lactated Ringer's (Lactated Ringer's) 1,000 mls @ 10 mls/hr IV .Q24H [facility] Last Admin: 12/01/17 07:15 Dose: Not Given Sodium Chloride (Sodium Chloride 0.9%) 1,000 mls @ 100 mls/hr IV .Q10H [facility] Stop: 12/02/17 13:19 Last Admin: 12/01/17 14:08 Dose: 100 mls/hr Latanoprost (Xalatan Opht) 1 drop OU HS [facility] Last Admin: 11/30/17 22:24 Dose: 1 drop Metoprolol Succinate (Toprol Xl) 50 mg PO DAILY [facility] Last Admin: 12/01/17 10:42 Dose: 50 mg Morphine Sulfate (Morphine) 4 mg IVP Q4 PRN PRN Reason: Pain, severe (8-10) Ondansetron HCl (Zofran Inj) 4 mg IVP Q4 PRN PRN Reason: Nausea/Vomiting Last Admin: 11/27/17 18:00 Dose: 4 mg Potassium Chloride (K-Dur 20 Meq Er Tab) 20 meq PO BID [facility] Stop: 12/01/17 17:01 Last Admin: 12/01/17 14:08 Dose: 20 meq - Labs Labs: 12/01/17 07:00 12/01/17 07:00 PT 11.3 Seconds (9.8-13.1) 11/30/17 13:00 INR 1.0 (0.9-1.2) 11/30/17 13:00 APTT 88.8 Seconds (25.6-37.1) H D 12/01/17 10:00 - Constitutional Appears: No Acute Distress - Head Exam Head Exam: ATRAUMATIC - Eye Exam Eye Exam: absent: Scleral icterus - ENT Exam ENT Exam: Mucous Membranes Moist - Neck Exam Neck Exam: absent: Meningismus - Respiratory Exam Respiratory Exam: Rhonchi. absent: Wheezes - Cardiovascular Exam Cardiovascular Exam: Tachycardia - GI/Abdominal Exam GI & Abdominal Exam: Soft. absent: Tenderness - Rectal Exam Rectal Exam: Deferred - Extremities Exam Extremities Exam: absent: Pedal Edema - Back Exam Back Exam: absent: tenderness - Neurological Exam Neurological Exam: Alert, Oriented x3 - Psychiatric Exam Psychiatric exam: Normal Affect - Skin Skin Exam: Dry, Intact Assessment and Plan - Assessment and Plan (Free Text) Assessment: 87 yo female with history of HTN and Arthritis S/P Cholecystectomy noted to have laboured breathing and chest congestion today. Denied chest pain. 1. R/O PE although patient had recent surgery her Ddimer was markedly elevated at 4887 and ProBNP was likewise elevated at 2980 Venous Doppler of both LE: negative for DVT VQ scan in am since it was too risky to submit patient to IV contrast with already deteriorating renal function pulmonary consult with Dr Brambila still pending, although he was aware Dr Taylor reconsulted because of elevated ProBNP Heparin stopped because of bloody stools this morning repeat CBC 2. Biliary Cholic with cholelithiasis S/P Cholecystectomy, day 4 iatrogenic enterotomy, day 4 Pain management surgical of Dr Pineda following 3. HTN BP stable Toprol 50 mg PO 4. Hyperlipidemia Atorvastatin 10 mg PO 5. DVT Prophylaxis venodyne boots while in bed Heparin DC because of blood in stools
--- NOTE | 2017-12-01 16:23 | US ---
PROCEDURE: Ultrasound of the Kidneys HISTORY: GRETCHEN COMPARISON: Comparison made with abdominal ultrasound dated 11/25/[address] scan of the abdomen pelvis dated 11/23/2017. TECHNIQUE: Sonogram of the kidneys. FINDINGS: RIGHT KIDNEY: Measures: 10.3 x 4.0 x 3.0 cm. Normal in size, contour and echogenicity. No stone, solid mass lesion or hydronephrosis visualized. Lower pole cyst measuring 3.1 x 2.6 x 3.5. A 2nd cyst lower pole not appreciated on this exam LEFT KIDNEY: Measures: 9.7 x 4.8 x 4.4 cm. Normal in size, contour and echogenicity. No stone, solid mass lesion or hydronephrosis visualized. OTHER FINDINGS: None. IMPRESSION: Small cyst lower pole right kidney. Second small cyst lower pole right kidney not appreciated on this exam
--- NOTE | 2017-12-01 16:25 | US ---
PROCEDURE: Urinary bladder ultrasound dated 12/01/2017 HISTORY: toyin COMPARISON: Correlation made with prior CT scan abdomen and pelvis 11/25/2017 TECHNIQUE: Transabdominal sonographic evaluation of the urinary bladder performed. FINDINGS: The prevoid bladder volume calculated at 195 cc and postvoid at 47 cc. No evidence of intraluminal urinary bladder calculi. . No obvious endoluminal lesions Neither ureteral jet visualized IMPRESSION: Prevoid urinary bladder volume calculated 195 cc and postvoid calculated at 47 cc.
[2017-12-01 21:05] LABS: HEMOGLOBIN 9.9 g/dL (12.0-16.0); MEAN CELL VOLUME 98.2 fl (81.0-99.0); MEAN CORPUSCULAR HEMOGLOBIN 32.1 pg (27.0-31.0); MEAN CORPUSCULAR HGB CONC 32.7 g/dL (33.0-37.0); RBC 3.09 Mil/uL (3.80-5.20); RED CELL DISTRIBUTION WIDTH 13.5 % (11.5-14.5); WHITE BLOOD COUNT 12.1 K/uL (4.8-10.8)
--- NOTE | 2017-12-01 21:25 | CP.PCM.CON ---
History of Present Illness - History of Present Illness History of Present Illness: 87 yrs old female s/p Lap Heidy 11-27 ,Patient was doing well post-op , on 11-30 Patient was noted to have labored breathing and appeared congested, denies CP. Lungs rhonchi , wheezing, tachycardia, no calf tenderness, D Dimer 2807 , BMP 2980 , CTA was not done due to GRETCHEN , Venous Doppler L/E no DVT , VQ lung Scan was ordered and Patient was started on Heparin drip , today was reported by nurse that Patient had a large bloody BM , Heparin drip was DC, Patient to be on bed rest, STD , f/u Hgb , to have VQ Lung Scan in am Review of Systems - Review of Systems Systems not reviewed;Unavailable: Language Barrier Past Patient History - Past Medical History & Family History Past Medical History?: Yes Pertinent Family History: Unknown - Past Social History Smoking Status: Never Smoked Home Situation {Lives}: With Family - CARDIAC Hx Cardiac Disorders: Yes Hx Hypercholesterolemia: Yes Hx Hypertension: Yes - PULMONARY Hx Respiratory Disorders: No - NEUROLOGICAL Hx Neurological Disorder: No - HEENT Hx HEENT Problems: No - RENAL Hx Chronic Kidney Disease: No - ENDOCRINE/METABOLIC Hx Endocrine Disorders: No - HEMATOLOGICAL/ONCOLOGICAL Hx Blood Disorders: No - INTEGUMENTARY Hx Dermatological Problems: No - MUSCULOSKELETAL/RHEUMATOLOGICAL Hx Arthritis: Yes Hx Falls: No - GASTROINTESTINAL Hx Gastrointestinal Disorders: No - GENITOURINARY/GYNECOLOGICAL Hx Genitourinary Disorders: No - PSYCHIATRIC Hx Depression: Yes Hx Substance Use: No - SURGICAL HISTORY Hx Appendectomy: Yes - ANESTHESIA Hx Anesthesia: Yes Hx Anesthesia Reactions: No Hx Malignant Hyperthermia: No Meds Allergies/Adverse Reactions: Allergies Allergy/AdvReac Type Severity Reaction Status Date / Time No Known Allergies Allergy Verified 10/02/16 10:31 - Medications Medications: Current Medications Acetylcysteine (Acetylcysteine 20%) 3 ml INH RBID [facility] Stop: 12/04/17 08:01 Albuterol/Ipratropium (Duoneb 3 Mg/0.5 Mg (3 Ml) Ud) 3 ml INH Q6H [facility] Last Admin: 12/01/17 19:03 Dose: 3 ml Albuterol/Ipratropium (Duoneb 3 Mg/0.5 Mg (3 Ml) Ud) 3 ml INH RQ4 PRN PRN Reason: Shortness of Breath Last Admin: 12/01/17 16:37 Dose: 3 ml Atorvastatin Calcium (Lipitor) 10 mg PO HS [facility] Last Admin: 11/30/17 22:23 Dose: 10 mg Famotidine (Pepcid) 20 mg PO DAILY [facility] Last Admin: 12/01/17 10:42 Dose: 20 mg Guaifenesin (Mucinex La) 600 mg PO Q12 [facility] Last Admin: 12/01/17 10:42 Dose: 600 mg Hydromorphone HCl (Dilaudid) 0.5 mg IVP Q4 PRN PRN Reason: Pain, severe (8-10) Last Admin: 11/28/17 11:00 Dose: 0.5 mg Piperacillin Sod/Tazobactam (Sod 2.25 gm/ Sodium Chloride) 100 mls @ 100 mls/ hr IVPB Q8 [facility] PRN Reason: Protocol Last Admin: 12/01/17 16:27 Dose: 100 mls/hr Lactated Ringer's (Lactated Ringer's) 1,000 mls @ 10 mls/hr IV .Q24H [facility] Last Admin: 12/01/17 07:15 Dose: Not Given Sodium Chloride (Sodium Chloride 0.9%) 1,000 mls @ 100 mls/hr IV .Q10H [facility] Stop: 12/02/17 13:19 Last Admin: 12/01/17 14:08 Dose: 100 mls/hr Latanoprost (Xalatan Opht) 1 drop OU HS [facility] Last Admin: 11/30/17 22:24 Dose: 1 drop Metoprolol Succinate (Toprol Xl) 50 mg PO DAILY [facility] Last Admin: 12/01/17 10:42 Dose: 50 mg Morphine Sulfate (Morphine) 4 mg IVP Q4 PRN PRN Reason: Pain, severe (8-10) Ondansetron HCl (Zofran Inj) 4 mg IVP Q4 PRN PRN Reason: Nausea/Vomiting Last Admin: 11/27/17 18:00 Dose: 4 mg Physical Exam - Head Exam Head Exam: NORMAL INSPECTION - Eye Exam Eye Exam: PERRL - ENT Exam ENT Exam: Normal Exam - Neck Exam Neck exam: Positive for: Normal Inspection - Respiratory Exam Respiratory Exam: Decreased Breath Sounds (at bases), Rales (at bases), Rhonchi - Cardiovascular Exam Cardiovascular Exam: REGULAR RHYTHM - GI/Abdominal Exam GI & Abdominal Exam: Normal Bowel Sounds, Soft. absent: Guarding, Rebound Additional comments: minimal RUQ post surgical tenderness - Extremities Exam Extremities exam: Positive for: normal inspection - Back Exam Back exam: NORMAL INSPECTION - Neurological Exam Neurological exam: Alert, Oriented x3 Additional comments: no motor/sensory deficit - Psychiatric Exam Psychiatric exam: Anxious - Skin Skin Exam: Warm Results - Vital Signs Recent Vital Signs: Last Vital Signs Temp 98.2 F 12/01/17 20:01 Pulse 116 H 12/01/17 20:01 Resp 16 12/01/17 20:01 BP 129/81 12/01/17 20:01 Pulse Ox 99 12/01/17 20:01 - Labs Result Diagrams: 12/03/17 05:55 12/03/17 05:55 Labs: Laboratory Results - last 24 hr 12/01/17 12/01/17 12/01/17 01:32 07:00 07:00 WBC 13.1 H RBC 3.31 L Hgb 10.6 L Hct 32.5 L MCV 98.0 MCH 32.1 H MCHC 32.7 L RDW 13.6 Plt Count 152 MPV 8.4 Neut % (Auto) 90.4 H Lymph % (Auto) 3.3 L Foster % (Auto) 6.2 Eos % (Auto) 0.0 Baso % (Auto) 0.1 Neut # 11.9 H Lymph # 0.4 L Foster # 0.8 Eos # 0.0 Baso # 0.0 Neutrophils % (Manual) 90 H Lymphocytes % (Manual) 3 L Monocytes % (Manual) 7 Platelet Estimate Normal Large Platelets Present Anisocytosis (manual) Slight Macrocytosis (manual) Slight Ovalocytes Slight APTT 160.4 H* D Sodium 140 Potassium 3.3 L Chloride 98 Carbon Dioxide 31 H Anion Gap 14 BUN 46 H Creatinine 2.5 H Est GFR ( Amer) 22 Est GFR (Non-Af Amer) 18 Random Glucose 130 H Calcium 8.6 12/01/17 12/01/17 10:00 20:55 WBC 12.1 H RBC 3.09 L Hgb 9.9 L Hct 30.4 L MCV 98.2 MCH 32.1 H MCHC 32.7 L RDW 13.5 Plt Count 159 MPV Neut % (Auto) Lymph % (Auto) Foster % (Auto) Eos % (Auto) Baso % (Auto) Neut # Lymph # Foster # Eos # Baso # Neutrophils % (Manual) Lymphocytes % (Manual) Monocytes % (Manual) Platelet Estimate Large Platelets Anisocytosis (manual) Macrocytosis (manual) Ovalocytes APTT 88.8 H D Sodium Potassium Chloride Carbon Dioxide Anion Gap BUN Creatinine Est GFR ( Amer) Est GFR (Non-Af Amer) Random Glucose Calcium Assessment & Plan (1) Respiratory distress Assessment and Plan: r/o P/E Status: Acute (2) GRETCHEN (acute kidney injury) Status: Acute (3) GI bleeding Status: Acute (4) S/P laparoscopic cholecystectomy Status: Acute - Assessment and Plan (Free Text) Plan: Bed Rest, STD , monitor Hgb , VQ Lung Scan in am continue Duo Neb ,Mucomyst , Mucinex
[2017-12-01 23:18] LABS: SQUAMOUS EPITHIAL 2 /hpf (0-5); URINE BACTERIA RARE (<OCC); URINE BILIRUBIN NEGATIVE (NEGATIVE); URINE BLOOD LARGE (NEGATIVE); URINE CLARITY CLOUDY (Clear); URINE COLOR YELLOW (YELLOW); URINE GLUCOSE (UA) NEG (Normal); URINE HYALINE CAST 0-2 /hpf (0-2); URINE LEUKOCYTE ESTERASE TRACE Leu/uL (Negative); URINE NITRATE NEGATIVE (NEGATIVE); URINE PROTEIN 30 mg/dL (NEGATIVE); URINE UROBILINOGEN 0.2-1.0 mg/dL (0.2-1.0)
[2017-12-01 23:31] LABS: CREATININE, RANDOM URINE 47.7 mg/dL
[2017-12-01] MEDS: Latanoprost 0.005% Opht SOUTION OU SCH (23:36)
[2017-12-02] MEDS: Potassium Chloride 20 mEq ER Tab PO SCH ×2 (00:35→00:45)
[2017-12-02] MEDS: Albuterol-Ipratrop 3 mg / 0.5 (3 ml) UD INH SCH ×4 (01:01→19:27)
[2017-12-02 06:23] LABS: CALCIUM 8.7 mg/dL (8.4-10.2)
[2017-12-02 06:56] LABS: BASO % 0.1 % (0.0-2.0); EOS % 0.1 % (0.0-4.0); LYMPH # 0.4 K/uL (1.0-4.3); LYMPH % 3.7 % (20.0-40.0); MEAN CORPUSCULAR HEMOGLOBIN 32.4 pg (27.0-31.0); MEAN CORPUSCULAR HGB CONC 32.7 g/dL (33.0-37.0); MEAN PLATELET VOLUME 8.7 fl (7.2-11.7); MONO % 8.8 % (0.0-10.0); NEUT # 9.7 K/uL (1.8-7.0); NEUT % 87.3 % (50.0-75.0); RBC 3.08 Mil/uL (3.80-5.20); RED CELL DISTRIBUTION WIDTH 13.8 % (11.5-14.5)
--- NOTE | 2017-12-02 07:53 | CARD ---
APPROVED REPORT EKG Measurement Heart [id number] <Conclusion> Sinus tachycardia Minimal voltage criteria for LVH, may be normal variant Inferior infarct, age undetermined Abnormal ECG
--- NOTE | 2017-12-02 08:10 | CP.PCM.PN ---
<Twin Harper Clary - Last Filed: 12/02/17 09:10> Subjective - Date & Time of Evaluation Date of Evaluation: 12/02/17 Time of Evaluation: 09:09 - Subjective Subjective: General Surgery: Dr Lawler Pt S&E. DAISHA. Tachycardia improving. Still with wet cough. Has been tolerating CLD. Passing flatus. Denies N/V, F/C. Denies recent BM. Has been OOB to chair and using the IS Objective - Vital Signs/Intake and Output Vital Signs (last 24 hours): Temp Pulse Resp BP Pulse Ox 98.4 F 96 H 18 147/82 100 12/02/17 08:07 12/02/17 08:07 12/02/17 08:07 12/02/17 08:07 12/02/17 08:07 - Medications Medications: Current Medications Acetylcysteine (Acetylcysteine 20%) 3 ml INH RBID [facility] Stop: 12/04/17 08:01 Albuterol/Ipratropium (Duoneb 3 Mg/0.5 Mg (3 Ml) Ud) 3 ml INH Q6H [facility] Last Admin: 12/02/17 07:44 Dose: 3 ml Albuterol/Ipratropium (Duoneb 3 Mg/0.5 Mg (3 Ml) Ud) 3 ml INH RQ4 PRN PRN Reason: Shortness of Breath Last Admin: 12/01/17 16:37 Dose: 3 ml Atorvastatin Calcium (Lipitor) 10 mg PO HS [facility] Last Admin: 12/01/17 23:36 Dose: 10 mg Famotidine (Pepcid) 20 mg PO DAILY [facility] Last Admin: 12/01/17 10:42 Dose: 20 mg Guaifenesin (Mucinex La) 600 mg PO Q12 [facility] Last Admin: 12/01/17 23:35 Dose: 600 mg Hydromorphone HCl (Dilaudid) 0.5 mg IVP Q4 PRN PRN Reason: Pain, severe (8-10) Last Admin: 11/28/17 11:00 Dose: 0.5 mg Piperacillin Sod/Tazobactam (Sod 2.25 gm/ Sodium Chloride) 100 mls @ 100 mls/ hr IVPB Q8 [facility] PRN Reason: Protocol Last Admin: 12/02/17 00:28 Dose: 100 mls/hr Lactated Ringer's (Lactated Ringer's) 1,000 mls @ 10 mls/hr IV .Q24H [facility] Last Admin: 12/01/17 07:15 Dose: Not Given Latanoprost (Xalatan Opht) 1 drop OU HS [facility] Last Admin: 12/01/17 23:36 Dose: 1 drop Metoprolol Succinate (Toprol Xl) 50 mg PO DAILY [facility] Last Admin: 12/01/17 10:42 Dose: 50 mg Morphine Sulfate (Morphine) 4 mg IVP Q4 PRN PRN Reason: Pain, severe (8-10) Ondansetron HCl (Zofran Inj) 4 mg IVP Q4 PRN PRN Reason: Nausea/Vomiting Last Admin: 11/27/17 18:00 Dose: 4 mg - Labs Labs: 12/02/17 04:30 12/02/17 04:30 PT 11.3 Seconds (9.8-13.1) 11/30/17 13:00 INR 1.0 (0.9-1.2) 11/30/17 13:00 APTT 88.8 Seconds (25.6-37.1) H D 12/01/17 10:00 - Constitutional Appears: Non-toxic, No Acute Distress - ENT Exam ENT Exam: Mucous Membranes Dry - Respiratory Exam Respiratory Exam: absent: Accessory Muscle Use, Respiratory Distress - Cardiovascular Exam Cardiovascular Exam: Tachycardia (improving), REGULAR RHYTHM - GI/Abdominal Exam GI & Abdominal Exam: Soft, Tenderness (minimal, post-op). absent: Distended, Firm, Guarding, Rigid - Neurological Exam Neurological Exam: Alert, Awake - Psychiatric Exam Psychiatric exam: Normal Affect Assessment and Plan - Assessment and Plan (Free Text) Assessment: 87F POD#5 s/p lap tyesha Plan: cont CLD until adv by surgical attending pt for V/Q scan today to r/o PE will cont to follow will d/w Dr Bucky Harper, PGY3 <Michael Lawler - Last Filed: 12/02/17 10:17> Subjective - Date & Time of Evaluation Time of Evaluation: 10:00 - Subjective Subjective: Patient was seen and examined at the bedside. Agree with resident's note above. Objective - Vital Signs/Intake and Output Vital Signs (last 24 hours): Temp Pulse Resp BP Pulse Ox 98.4 F 96 H 18 147/82 100 12/02/17 08:07 12/02/17 09:54 12/02/17 08:07 12/02/17 09:54 12/02/17 08:07 - Medications Medications: Current Medications Acetylcysteine (Acetylcysteine 20%) 3 ml INH RBID [facility] Stop: 12/04/17 08:01 Albuterol/Ipratropium (Duoneb 3 Mg/0.5 Mg (3 Ml) Ud) 3 ml INH Q6H [facility] Last Admin: 12/02/17 07:44 Dose: 3 ml Albuterol/Ipratropium (Duoneb 3 Mg/0.5 Mg (3 Ml) Ud) 3 ml INH RQ4 PRN PRN Reason: Shortness of Breath Last Admin: 12/01/17 16:37 Dose: 3 ml Atorvastatin Calcium (Lipitor) 10 mg PO HS [facility] Last Admin: 12/01/17 23:36 Dose: 10 mg Famotidine (Pepcid) 20 mg PO DAILY [facility] Last Admin: 12/02/17 09:55 Dose: 20 mg Guaifenesin (Mucinex La) 600 mg PO Q12 [facility] Last Admin: 12/02/17 09:55 Dose: 600 mg Hydromorphone HCl (Dilaudid) 0.5 mg IVP Q4 PRN PRN Reason: Pain, severe (8-10) Last Admin: 11/28/17 11:00 Dose: 0.5 mg Piperacillin Sod/Tazobactam (Sod 2.25 gm/ Sodium Chloride) 100 mls @ 100 mls/ hr IVPB Q8 [facility] PRN Reason: Protocol Last Admin: 12/02/17 09:58 Dose: 100 mls/hr Sodium Chloride (Sodium Chloride 0.9%) 1,000 mls @ 100 mls/hr IV .Q10H [facility] Stop: 12/03/17 09:55 Latanoprost (Xalatan Opht) 1 drop OU HS [facility] Last Admin: 12/01/17 23:36 Dose: 1 drop Metoprolol Succinate (Toprol Xl) 50 mg PO DAILY [facility] Last Admin: 12/02/17 09:54 Dose: 50 mg Morphine Sulfate (Morphine) 4 mg IVP Q4 PRN PRN Reason: Pain, severe (8-10) Ondansetron HCl (Zofran Inj) 4 mg IVP Q4 PRN PRN Reason: Nausea/Vomiting Last Admin: 11/27/17 18:00 Dose: 4 mg - Labs Labs: 12/02/17 04:30 12/02/17 04:30 PT 11.3 Seconds (9.8-13.1) 11/30/17 13:00 INR 1.0 (0.9-1.2) 11/30/17 13:00 APTT 88.8 Seconds (25.6-37.1) H D 12/01/17 10:00 - GI/Abdominal Exam GI & Abdominal Exam: Normal Bowel Sounds Additional comments: soft, NT, ND, no rebound, no guarding, incisions clean, no erythema, no drainage , dermobond in place Assessment and Plan - Assessment and Plan (Free Text) Plan: - Start full liquid diet - pain control - Insentive spirometry - IV fluids - Nephrology follow up - Pulmonary follow up - DVT ppx - Out of bed - repeat labs in am - Will follow
--- NOTE | 2017-12-02 08:23 | CP.PCM.PN ---
Subjective - Date & Time of Evaluation Date of Evaluation: 12/02/17 Time of Evaluation: 08:20 - Subjective Subjective: Patient appeared to be comfortable No nausea or vomiting reported No chest pain and reported Objective - Vital Signs/Intake and Output Vital Signs (last 24 hours): Temp Pulse Resp BP Pulse Ox 98.4 F 96 H 18 147/82 100 12/02/17 08:07 12/02/17 08:07 12/02/17 08:07 12/02/17 08:07 12/02/17 08:07 - Medications Medications: Current Medications Acetylcysteine (Acetylcysteine 20%) 3 ml INH RBID [facility] Stop: 12/04/17 08:01 Albuterol/Ipratropium (Duoneb 3 Mg/0.5 Mg (3 Ml) Ud) 3 ml INH Q6H [facility] Last Admin: 12/02/17 07:44 Dose: 3 ml Albuterol/Ipratropium (Duoneb 3 Mg/0.5 Mg (3 Ml) Ud) 3 ml INH RQ4 PRN PRN Reason: Shortness of Breath Last Admin: 12/01/17 16:37 Dose: 3 ml Atorvastatin Calcium (Lipitor) 10 mg PO HS [facility] Last Admin: 12/01/17 23:36 Dose: 10 mg Famotidine (Pepcid) 20 mg PO DAILY [facility] Last Admin: 12/01/17 10:42 Dose: 20 mg Guaifenesin (Mucinex La) 600 mg PO Q12 [facility] Last Admin: 12/01/17 23:35 Dose: 600 mg Hydromorphone HCl (Dilaudid) 0.5 mg IVP Q4 PRN PRN Reason: Pain, severe (8-10) Last Admin: 11/28/17 11:00 Dose: 0.5 mg Piperacillin Sod/Tazobactam (Sod 2.25 gm/ Sodium Chloride) 100 mls @ 100 mls/ hr IVPB Q8 [facility] PRN Reason: Protocol Last Admin: 12/02/17 00:28 Dose: 100 mls/hr Lactated Ringer's (Lactated Ringer's) 1,000 mls @ 10 mls/hr IV .Q24H [facility] Last Admin: 12/01/17 07:15 Dose: Not Given Latanoprost (Xalatan Opht) 1 drop OU HS [facility] Last Admin: 12/01/17 23:36 Dose: 1 drop Metoprolol Succinate (Toprol Xl) 50 mg PO DAILY [facility] Last Admin: 12/01/17 10:42 Dose: 50 mg Morphine Sulfate (Morphine) 4 mg IVP Q4 PRN PRN Reason: Pain, severe (8-10) Ondansetron HCl (Zofran Inj) 4 mg IVP Q4 PRN PRN Reason: Nausea/Vomiting Last Admin: 11/27/17 18:00 Dose: 4 mg - Labs Labs: 12/02/17 04:30 12/02/17 04:30 PT 11.3 Seconds (9.8-13.1) 11/30/17 13:00 INR 1.0 (0.9-1.2) 11/30/17 13:00 APTT 88.8 Seconds (25.6-37.1) H D 12/01/17 10:00 - Constitutional Appears: No Acute Distress - ENT Exam ENT Exam: Mucous Membranes Moist - Neck Exam Neck Exam: absent: Lymphadenopathy - Respiratory Exam Respiratory Exam: NORMAL BREATHING PATTERN. absent: Chest Wall Tenderness - GI/Abdominal Exam GI & Abdominal Exam: Guarding, Soft, Normal Bowel Sounds - Extremities Exam Extremities Exam: absent: Calf Tenderness - Back Exam Back Exam: absent: CVA tenderness (L), CVA tenderness (R) - Neurological Exam Neurological Exam: Awake - Psychiatric Exam Psychiatric exam: Normal Affect Assessment and Plan (1) GRETCHEN (acute kidney injury) Assessment & Plan: Acute kidney injury most likely related to hypovolemia perhaps initially. Serum creatinine appear to be stable at this point Continue to monitor Serum electrolytes appear to be stable The rest of the problem as noted per primary team. Status post cholecystectomy Status: Acute (2) Abdominal pain Status: Acute (3) Cholelithiasis Status: Acute
[2017-12-02] MEDS: Metoprolol Succinate 50 mg XL Tab PO SCH (09:54)
[2017-12-02] MEDS: guaiFENesin 600 mg ER Tab PO SCH ×2 (09:55→23:43)
--- NOTE | 2017-12-02 10:01 | CP.PCM.PN ---
Subjective - Date & Time of Evaluation Date of Evaluation: 12/02/17 Time of Evaluation: 09:00 - Subjective Subjective: Appears a little better today Continues to be afebrile Has a productive cough but coughs poorly due to recent abd Sx Looks better following IV fluids yesterday HR 80 BPM reg BP 140/70 mm Hg Scanty oral intake BUN still rising/Creatinin stable Will continue IV fluids and follow BMP Objective - Vital Signs/Intake and Output Vital Signs (last 24 hours): Temp Pulse Resp BP Pulse Ox 98.4 F 96 H 18 147/82 100 12/02/17 08:07 12/02/17 09:54 12/02/17 08:07 12/02/17 09:54 12/02/17 08:07 - Medications Medications: Current Medications Acetylcysteine (Acetylcysteine 20%) 3 ml INH RBID [facility] Stop: 12/04/17 08:01 Albuterol/Ipratropium (Duoneb 3 Mg/0.5 Mg (3 Ml) Ud) 3 ml INH Q6H [facility] Last Admin: 12/02/17 07:44 Dose: 3 ml Albuterol/Ipratropium (Duoneb 3 Mg/0.5 Mg (3 Ml) Ud) 3 ml INH RQ4 PRN PRN Reason: Shortness of Breath Last Admin: 12/01/17 16:37 Dose: 3 ml Atorvastatin Calcium (Lipitor) 10 mg PO HS [facility] Last Admin: 12/01/17 23:36 Dose: 10 mg Famotidine (Pepcid) 20 mg PO DAILY [facility] Last Admin: 12/02/17 09:55 Dose: 20 mg Guaifenesin (Mucinex La) 600 mg PO Q12 [facility] Last Admin: 12/02/17 09:55 Dose: 600 mg Hydromorphone HCl (Dilaudid) 0.5 mg IVP Q4 PRN PRN Reason: Pain, severe (8-10) Last Admin: 11/28/17 11:00 Dose: 0.5 mg Piperacillin Sod/Tazobactam (Sod 2.25 gm/ Sodium Chloride) 100 mls @ 100 mls/ hr IVPB Q8 [facility] PRN Reason: Protocol Last Admin: 12/02/17 00:28 Dose: 100 mls/hr Sodium Chloride (Sodium Chloride 0.9%) 1,000 mls @ 100 mls/hr IV .Q10H [facility] Stop: 12/03/17 09:55 Latanoprost (Xalatan Opht) 1 drop OU HS [facility] Last Admin: 12/01/17 23:36 Dose: 1 drop Metoprolol Succinate (Toprol Xl) 50 mg PO DAILY [facility] Last Admin: 12/02/17 09:54 Dose: 50 mg Morphine Sulfate (Morphine) 4 mg IVP Q4 PRN PRN Reason: Pain, severe (8-10) Ondansetron HCl (Zofran Inj) 4 mg IVP Q4 PRN PRN Reason: Nausea/Vomiting Last Admin: 11/27/17 18:00 Dose: 4 mg - Labs Labs: 12/02/17 04:30 12/02/17 04:30 PT 11.3 Seconds (9.8-13.1) 11/30/17 13:00 INR 1.0 (0.9-1.2) 11/30/17 13:00 APTT 88.8 Seconds (25.6-37.1) H D 12/01/17 10:00
--- NOTE | 2017-12-02 11:28 | CP.PCM.PN ---
Subjective - Date & Time of Evaluation Date of Evaluation: 12/02/17 Time of Evaluation: 09:30 - Subjective Subjective: 87 years old female patient with PMHx of HTN, Arthritis, back surgery was seen and evaluated at bedside with her daughter 5 days s/p cholecystectomy. Patient is AAOx3 and is in NAD. Patient denies of any acute overnight events. Patient denies of having overnight F/N/V/C/diarrhea/chest pain. Reports that she has been on clear liquid diet but does not have much of any appetite. Denies of any new complains at this time. Objective - Vital Signs/Intake and Output Vital Signs (last 24 hours): Temp Pulse Resp BP Pulse Ox 98.4 F 96 H 18 147/82 100 12/02/17 08:07 12/02/17 09:54 12/02/17 08:07 12/02/17 09:54 12/02/17 08:07 - Medications Medications: Current Medications Acetylcysteine (Acetylcysteine 20%) 3 ml INH RBID [facility] Stop: 12/04/17 08:01 Albuterol/Ipratropium (Duoneb 3 Mg/0.5 Mg (3 Ml) Ud) 3 ml INH Q6H [facility] Last Admin: 12/02/17 07:44 Dose: 3 ml Albuterol/Ipratropium (Duoneb 3 Mg/0.5 Mg (3 Ml) Ud) 3 ml INH RQ4 PRN PRN Reason: Shortness of Breath Last Admin: 12/01/17 16:37 Dose: 3 ml Atorvastatin Calcium (Lipitor) 10 mg PO HS [facility] Last Admin: 12/01/17 23:36 Dose: 10 mg Famotidine (Pepcid) 20 mg PO DAILY [facility] Last Admin: 12/02/17 09:55 Dose: 20 mg Guaifenesin (Mucinex La) 600 mg PO Q12 [facility] Last Admin: 12/02/17 09:55 Dose: 600 mg Hydromorphone HCl (Dilaudid) 0.5 mg IVP Q4 PRN PRN Reason: Pain, severe (8-10) Last Admin: 11/28/17 11:00 Dose: 0.5 mg Piperacillin Sod/Tazobactam (Sod 2.25 gm/ Sodium Chloride) 100 mls @ 100 mls/ hr IVPB Q8 [facility] PRN Reason: Protocol Last Admin: 12/02/17 09:58 Dose: 100 mls/hr Sodium Chloride (Sodium Chloride 0.9%) 1,000 mls @ 100 mls/hr IV .Q10H [facility] Stop: 12/03/17 09:55 Latanoprost (Xalatan Opht) 1 drop OU HS [facility] Last Admin: 12/01/17 23:36 Dose: 1 drop Metoprolol Succinate (Toprol Xl) 50 mg PO DAILY [facility] Last Admin: 12/02/17 09:54 Dose: 50 mg Morphine Sulfate (Morphine) 4 mg IVP Q4 PRN PRN Reason: Pain, severe (8-10) Ondansetron HCl (Zofran Inj) 4 mg IVP Q4 PRN PRN Reason: Nausea/Vomiting Last Admin: 11/27/17 18:00 Dose: 4 mg - Labs Labs: 12/02/17 04:30 12/02/17 04:30 PT 11.3 Seconds (9.8-13.1) 11/30/17 13:00 INR 1.0 (0.9-1.2) 11/30/17 13:00 APTT 88.8 Seconds (25.6-37.1) H D 12/01/17 10:00 - Constitutional Appears: Well, Non-toxic, No Acute Distress - Head Exam Head Exam: ATRAUMATIC - Eye Exam Eye Exam: Normal appearance Pupil Exam: NORMAL ACCOMODATION - ENT Exam ENT Exam: Normal Exam - Neck Exam Neck Exam: Full ROM, Normal Inspection - Respiratory Exam Respiratory Exam: Wheezes, Respiratory Distress, NORMAL BREATHING PATTERN. absent: Rales, Rhonchi - Cardiovascular Exam Cardiovascular Exam: Tachycardia, +S1, +S2. absent: Bradycardia - GI/Abdominal Exam GI & Abdominal Exam: Soft, Normal Bowel Sounds. absent: Mass, Organomegaly - Rectal Exam Rectal Exam: Deferred - Extremities Exam Extremities Exam: Full ROM, Normal Capillary Refill, Normal Inspection. absent : Calf Tenderness, Joint Swelling, Pedal Edema, Tenderness - Back Exam Back Exam: Full ROM, NORMAL INSPECTION - Neurological Exam Neurological Exam: Alert, Awake, Oriented x3 - Psychiatric Exam Psychiatric exam: Normal Affect, Normal Mood - Skin Skin Exam: Intact, Normal Color, Warm Assessment and Plan - Assessment and Plan (Free Text) Assessment: 87 yo female with history of HTN and Arthritis 5 days s/p cholecystectomy noted to have laboured breathing and chest congestion Plan: 1). R/O PE - Although patient had recent surgery her D-dimer was markedly elevated at 4887 and ProBNP was likewise elevated at 2980 - Venous Doppler of both LE: negative for DVT - VQ scan - Pending - Pulmonary consult with Dr Brambila - Recommendations appreciated - Dr Ángel Garrett re-consulted - Recommendations appreciated - Heparin stopped because of bloody stools 2). Biliary Cholic with cholelithiasis - S/P Cholecystectomy, day 5 - Iatrogenic enterotomy, day 5 - Pain management - Surgical of Dr Pineda following 3). HTN - BP stable - Toprol 50 mg PO - monitor vitals 4). Hyperlipidemia - Atorvastatin 10 mg PO 5). ARF - Renal function deteriorating probably because of volume depletion - Renal consult with Dr Yu - Recommendations appreciated - Monitor labs 6). DVT Prophylaxis - Venodyne boots while in bed - Heparin DC because of blood in stools
--- NOTE | 2017-12-02 12:44 | NM ---
COMPARISON: Comparison is made with the previous chest x-ray dated 11/30/2017 TECHNIQUE: 46.4 mCi technetium 99-m technetium 99 M DTPA aerosol 5.86 mCI technetium 99-m MAA administered intravenously. FINDINGS: VENTILATION COMPONENT: Markedly heterogeneous distribution in the lungs suspicious for COPD. PERFUSION COMPONENT: Heterogeneous radiotracer distribution in the lungs without evidence of mismatching segmental or subsegmental perfusion defect. Nonsegmental matching scattered foci of perfusion defect noted bilaterally. IMPRESSION: Lowprobability ventilation perfusion scan for pulmonary embolism.
[2017-12-02] MEDS: Sodium Chloride 0.9% 1,000 ML IV SCH ×2 (13:03→23:43)
--- NOTE | 2017-12-02 15:21 | CP.PCM.PN ---
Subjective - Date & Time of Evaluation Date of Evaluation: 12/02/17 Time of Evaluation: 10:20 - Subjective Subjective: F/U Respiratory Distress. No A/D, no c/o of SOB, occasional cough. Objective - Vital Signs/Intake and Output Vital Signs (last 24 hours): Temp Pulse Resp BP Pulse Ox 98.3 F 102 H 18 141/77 98 12/02/17 12:52 12/02/17 12:52 12/02/17 12:52 12/02/17 12:52 12/02/17 12:52 - Medications Medications: Current Medications Acetylcysteine (Acetylcysteine 20%) 3 ml INH RBID [facility] Stop: 12/04/17 08:01 Albuterol/Ipratropium (Duoneb 3 Mg/0.5 Mg (3 Ml) Ud) 3 ml INH Q6H [facility] Last Admin: 12/02/17 13:16 Dose: 3 ml Albuterol/Ipratropium (Duoneb 3 Mg/0.5 Mg (3 Ml) Ud) 3 ml INH RQ4 PRN PRN Reason: Shortness of Breath Last Admin: 12/01/17 16:37 Dose: 3 ml Atorvastatin Calcium (Lipitor) 10 mg PO HS [facility] Last Admin: 12/01/17 23:36 Dose: 10 mg Famotidine (Pepcid) 20 mg PO DAILY [facility] Last Admin: 12/02/17 09:55 Dose: 20 mg Guaifenesin (Mucinex La) 600 mg PO Q12 [facility] Last Admin: 12/02/17 09:55 Dose: 600 mg Hydromorphone HCl (Dilaudid) 0.5 mg IVP Q4 PRN PRN Reason: Pain, severe (8-10) Last Admin: 11/28/17 11:00 Dose: 0.5 mg Piperacillin Sod/Tazobactam (Sod 2.25 gm/ Sodium Chloride) 100 mls @ 100 mls/ hr IVPB Q8 [facility] PRN Reason: Protocol Last Admin: 12/02/17 09:58 Dose: 100 mls/hr Sodium Chloride (Sodium Chloride 0.9%) 1,000 mls @ 100 mls/hr IV .Q10H [facility] Stop: 12/03/17 09:55 Last Admin: 12/02/17 13:03 Dose: 100 mls/hr Latanoprost (Xalatan Opht) 1 drop OU HS [facility] Last Admin: 12/01/17 23:36 Dose: 1 drop Metoprolol Succinate (Toprol Xl) 50 mg PO DAILY [facility] Last Admin: 12/02/17 09:54 Dose: 50 mg Morphine Sulfate (Morphine) 4 mg IVP Q4 PRN PRN Reason: Pain, severe (8-10) Ondansetron HCl (Zofran Inj) 4 mg IVP Q4 PRN PRN Reason: Nausea/Vomiting Last Admin: 12/02/17 13:02 Dose: 4 mg - Labs Labs: 12/02/17 04:30 12/02/17 04:30 PT 11.3 Seconds (9.8-13.1) 11/30/17 13:00 INR 1.0 (0.9-1.2) 11/30/17 13:00 APTT 88.8 Seconds (25.6-37.1) H D 12/01/17 10:00 - Head Exam Head Exam: NORMAL INSPECTION - Eye Exam Eye Exam: PERRL - ENT Exam ENT Exam: Normal Exam - Neck Exam Neck Exam: Normal Inspection - Respiratory Exam Respiratory Exam: Decreased Breath Sounds (at bases), Rhonchi - Cardiovascular Exam Cardiovascular Exam: REGULAR RHYTHM - GI/Abdominal Exam GI & Abdominal Exam: Soft, Normal Bowel Sounds. absent: Guarding, Rebound Additional comments: Minimal RUQ post surgical tenderness. - Extremities Exam Extremities Exam: Normal Inspection - Back Exam Back Exam: NORMAL INSPECTION - Neurological Exam Neurological Exam: Alert, Oriented x3. absent: Motor Sensory Deficit - Psychiatric Exam Psychiatric exam: Anxious - Skin Skin Exam: Warm Assessment and Plan (1) Respiratory distress Status: Acute (2) GRETCHEN (acute kidney injury) Status: Acute (3) GI bleeding Status: Acute (4) S/P laparoscopic cholecystectomy Status: Acute - Assessment and Plan (Free Text) Plan: F/U Lung scan-VQ, continue Duoneb, Mucinex and rest of Tx.
--- NOTE | 2017-12-02 16:54 | RAD ---
HISTORY: Shortness of breath. COMPARISON: 10/30/2018. Single-view chest. 11/23/2017. CT abdomen and pelvis including lower thorax FINDINGS: LUNGS: No active pulmonary disease. PLEURA: No significant pleural effusion identified, no pneumothorax apparent. CARDIOVASCULAR: No radiographic findings to suggest acute or significant cardiovascular disease. OSSEOUS STRUCTURES: No significant abnormalities. VISUALIZED UPPER ABDOMEN: Normal. OTHER FINDINGS: Elevated right hemidiaphragm again identified. IMPRESSION: No active disease. No significant interval change compared to the prior examination(s).
[2017-12-02] MEDS: Latanoprost 0.005% Opht SOUTION OU SCH (23:44)
[2017-12-03] MEDS: Albuterol-Ipratrop 3 mg / 0.5 (3 ml) UD INH SCH ×4 (01:00→19:04)
[2017-12-03 06:09] LABS: EOS % 0.1 % (0.0-4.0); HEMOGLOBIN 10.5 g/dL (12.0-16.0); LYMPH # 0.5 K/uL (1.0-4.3); LYMPH % 4.5 % (20.0-40.0); MEAN CELL VOLUME 98.6 fl (81.0-99.0); MEAN CORPUSCULAR HEMOGLOBIN 32.4 pg (27.0-31.0); MEAN CORPUSCULAR HGB CONC 32.9 g/dL (33.0-37.0); MEAN PLATELET VOLUME 8.3 fl (7.2-11.7); MONO # 1.2 K/uL (0.0-0.8); MONO % 11.6 % (0.0-10.0); NEUT # 8.9 K/uL (1.8-7.0); NEUT % 83.8 % (50.0-75.0); NRBC % 0.1 % (0.0-0.0); RBC 3.24 Mil/uL (3.80-5.20); RED CELL DISTRIBUTION WIDTH 13.5 % (11.5-14.5); WHITE BLOOD COUNT 10.7 K/uL (4.8-10.8)
[2017-12-03 06:30] LABS: ALBUMIN 3.3 g/dL (3.5-5.0)
--- NOTE | 2017-12-03 07:39 | CP.PCM.PN ---
<Twin Harper - Last Filed: 12/03/17 07:34> Subjective - Date & Time of Evaluation Date of Evaluation: 12/03/17 Time of Evaluation: 07:34 - Subjective Subjective: General Surgery: Dr Lawler Pt S&E. Per nursing no further bloody BMs since yesterday afternoon. Pt taking in CLD but frustrated and states she wants regular food. Feels weak. Fluids restarted yesterday but pt sounds more congested this morning. Also given lasix. Cr stable. HgB has been stable despite reported blood in stool. Denies fevers, chills, sob. Just complains of cough. Denies abominal pain or N /V Objective - Vital Signs/Intake and Output Vital Signs (last 24 hours): Temp Pulse Resp BP Pulse Ox 98.4 F 90 18 161/81 H 100 12/03/17 05:00 12/03/17 05:00 12/03/17 05:00 12/03/17 05:00 12/03/17 05:00 - Medications Medications: Current Medications Acetylcysteine (Acetylcysteine 20%) 3 ml INH RBID [facility] Stop: 12/04/17 08:01 Albuterol/Ipratropium (Duoneb 3 Mg/0.5 Mg (3 Ml) Ud) 3 ml INH Q6H [facility] Last Admin: 12/03/17 01:00 Dose: 3 ml Albuterol/Ipratropium (Duoneb 3 Mg/0.5 Mg (3 Ml) Ud) 3 ml INH RQ4 PRN PRN Reason: Shortness of Breath Last Admin: 12/01/17 16:37 Dose: 3 ml Atorvastatin Calcium (Lipitor) 10 mg PO HS [facility] Last Admin: 12/02/17 23:43 Dose: 10 mg Guaifenesin (Mucinex La) 600 mg PO Q12 [facility] Last Admin: 12/02/17 23:43 Dose: 600 mg Hydromorphone HCl (Dilaudid) 0.5 mg IVP Q4 PRN PRN Reason: Pain, severe (8-10) Last Admin: 11/28/17 11:00 Dose: 0.5 mg Piperacillin Sod/Tazobactam (Sod 2.25 gm/ Sodium Chloride) 100 mls @ 100 mls/ hr IVPB Q8 [facility] PRN Reason: Protocol Last Admin: 12/03/17 02:21 Dose: 100 mls/hr Latanoprost (Xalatan Opht) 1 drop OU HS [facility] Last Admin: 12/02/17 23:44 Dose: 1 drop Metoprolol Succinate (Toprol Xl) 50 mg PO DAILY [facility] Last Admin: 12/02/17 09:54 Dose: 50 mg Morphine Sulfate (Morphine) 4 mg IVP Q4 PRN PRN Reason: Pain, severe (8-10) Ondansetron HCl (Zofran Inj) 4 mg IVP Q4 PRN PRN Reason: Nausea/Vomiting Last Admin: 12/02/17 13:02 Dose: 4 mg Pantoprazole Sodium (Protonix Inj) 40 mg IVP DAILY [facility] - Labs Labs: 12/03/17 05:55 12/03/17 05:55 PT 11.3 Seconds (9.8-13.1) 11/30/17 13:00 INR 1.0 (0.9-1.2) 11/30/17 13:00 APTT 88.8 Seconds (25.6-37.1) H D 12/01/17 10:00 - Constitutional Appears: Non-toxic, No Acute Distress - ENT Exam ENT Exam: Mucous Membranes Moist - Respiratory Exam Respiratory Exam: Rhonchi. absent: Accessory Muscle Use, Respiratory Distress - Cardiovascular Exam Cardiovascular Exam: REGULAR RHYTHM. absent: Tachycardia - GI/Abdominal Exam GI & Abdominal Exam: Soft. absent: Distended, Firm, Tenderness Assessment and Plan - Assessment and Plan (Free Text) Assessment: 87F s/p lap tyesha; post-op course complicated by respiratory issues <Michael Lawler - Last Filed: 12/03/17 11:01> Subjective - Date & Time of Evaluation Time of Evaluation: 10:20 - Subjective Subjective: Patient was seen and examined at the bedside. Agree with resident's note above. Objective - Vital Signs/Intake and Output Vital Signs (last 24 hours): Temp Pulse Resp BP Pulse Ox 97.4 F L 97 H 18 157/86 H 99 12/03/17 08:29 12/03/17 09:35 12/03/17 08:29 12/03/17 09:35 12/03/17 08:29 - Medications Medications: Current Medications Acetylcysteine (Acetylcysteine 20%) 3 ml INH RBID [facility] Stop: 12/04/17 08:01 Albuterol/Ipratropium (Duoneb 3 Mg/0.5 Mg (3 Ml) Ud) 3 ml INH Q6H [facility] Last Admin: 12/03/17 07:35 Dose: 3 ml Albuterol/Ipratropium (Duoneb 3 Mg/0.5 Mg (3 Ml) Ud) 3 ml INH RQ4 PRN PRN Reason: Shortness of Breath Last Admin: 12/01/17 16:37 Dose: 3 ml Atorvastatin Calcium (Lipitor) 10 mg PO HS [facility] Last Admin: 12/02/17 23:43 Dose: 10 mg Guaifenesin (Mucinex La) 600 mg PO Q12 [facility] Last Admin: 12/03/17 09:34 Dose: 600 mg Hydromorphone HCl (Dilaudid) 0.5 mg IVP Q4 PRN PRN Reason: Pain, severe (8-10) Last Admin: 11/28/17 11:00 Dose: 0.5 mg Piperacillin Sod/Tazobactam (Sod 2.25 gm/ Sodium Chloride) 100 mls @ 100 mls/ hr IVPB Q8 [facility] PRN Reason: Protocol Last Admin: 12/03/17 09:56 Dose: 100 mls/hr Latanoprost (Xalatan Opht) 1 drop OU HS [facility] Last Admin: 12/02/17 23:44 Dose: 1 drop Metoprolol Succinate (Toprol Xl) 50 mg PO DAILY [facility] Last Admin: 12/03/17 09:35 Dose: 50 mg Morphine Sulfate (Morphine) 4 mg IVP Q4 PRN PRN Reason: Pain, severe (8-10) Ondansetron HCl (Zofran Inj) 4 mg IVP Q4 PRN PRN Reason: Nausea/Vomiting Last Admin: 12/02/17 13:02 Dose: 4 mg Pantoprazole Sodium (Protonix Inj) 40 mg IVP DAILY [facility] Last Admin: 12/03/17 09:36 Dose: 40 mg - Labs Labs: 12/03/17 05:55 12/03/17 05:55 PT 11.3 Seconds (9.8-13.1) 11/30/17 13:00 INR 1.0 (0.9-1.2) 11/30/17 13:00 APTT 88.8 Seconds (25.6-37.1) H D 12/01/17 10:00 Assessment and Plan - Assessment and Plan (Free Text) Plan: - Advance diet to soft - Pain control - Insentive spirometry - Out of bed - Continue care as per medical, nephrology, and pulmonary team - Patient is clear for discharge to rehab from the general surgery stand point
[2017-12-03] MEDS: guaiFENesin 600 mg ER Tab PO SCH ×2 (09:34→23:28)
[2017-12-03] MEDS: Metoprolol Succinate 50 mg XL Tab PO SCH (09:35)
--- NOTE | 2017-12-03 10:22 | CP.PCM.PN ---
Subjective - Date & Time of Evaluation Date of Evaluation: 12/03/17 Time of Evaluation: 09:00 - Subjective Subjective: Patient seen and evaluated at bedside this morning s/p cholecystectomy. Patient is AAOx3 and is in NAD. Patient appears to have similar breathing pattern as yesterday. Denies of any acute overnight events. Denies of having any recent F/N /V/C/CP/headache/diarrhea. Denies of any new complains at this time. Objective - Vital Signs/Intake and Output Vital Signs (last 24 hours): Temp Pulse Resp BP Pulse Ox 97.4 F L 97 H 18 157/86 H 99 12/03/17 08:29 12/03/17 09:35 12/03/17 08:29 12/03/17 09:35 12/03/17 08:29 - Medications Medications: Current Medications Acetylcysteine (Acetylcysteine 20%) 3 ml INH RBID [facility] Stop: 12/04/17 08:01 Albuterol/Ipratropium (Duoneb 3 Mg/0.5 Mg (3 Ml) Ud) 3 ml INH Q6H [facility] Last Admin: 12/03/17 07:35 Dose: 3 ml Albuterol/Ipratropium (Duoneb 3 Mg/0.5 Mg (3 Ml) Ud) 3 ml INH RQ4 PRN PRN Reason: Shortness of Breath Last Admin: 12/01/17 16:37 Dose: 3 ml Atorvastatin Calcium (Lipitor) 10 mg PO HS [facility] Last Admin: 12/02/17 23:43 Dose: 10 mg Guaifenesin (Mucinex La) 600 mg PO Q12 [facility] Last Admin: 12/03/17 09:34 Dose: 600 mg Hydromorphone HCl (Dilaudid) 0.5 mg IVP Q4 PRN PRN Reason: Pain, severe (8-10) Last Admin: 11/28/17 11:00 Dose: 0.5 mg Piperacillin Sod/Tazobactam (Sod 2.25 gm/ Sodium Chloride) 100 mls @ 100 mls/ hr IVPB Q8 [facility] PRN Reason: Protocol Last Admin: 12/03/17 09:56 Dose: 100 mls/hr Latanoprost (Xalatan Opht) 1 drop OU HS [facility] Last Admin: 12/02/17 23:44 Dose: 1 drop Metoprolol Succinate (Toprol Xl) 50 mg PO DAILY [facility] Last Admin: 12/03/17 09:35 Dose: 50 mg Morphine Sulfate (Morphine) 4 mg IVP Q4 PRN PRN Reason: Pain, severe (8-10) Ondansetron HCl (Zofran Inj) 4 mg IVP Q4 PRN PRN Reason: Nausea/Vomiting Last Admin: 12/02/17 13:02 Dose: 4 mg Pantoprazole Sodium (Protonix Inj) 40 mg IVP DAILY [facility] Last Admin: 12/03/17 09:36 Dose: 40 mg - Labs Labs: 12/03/17 05:55 12/03/17 05:55 PT 11.3 Seconds (9.8-13.1) 11/30/17 13:00 INR 1.0 (0.9-1.2) 11/30/17 13:00 APTT 88.8 Seconds (25.6-37.1) H D 12/01/17 10:00 - Constitutional Appears: Well, Non-toxic, No Acute Distress - Head Exam Head Exam: ATRAUMATIC - Eye Exam Eye Exam: Normal appearance - ENT Exam ENT Exam: Normal Exam - Neck Exam Neck Exam: Full ROM, Normal Inspection - Respiratory Exam Respiratory Exam: Wheezes, Respiratory Distress, NORMAL BREATHING PATTERN. absent: Rales, Rhonchi - Cardiovascular Exam Cardiovascular Exam: REGULAR RHYTHM, +S1, +S2 - GI/Abdominal Exam GI & Abdominal Exam: Soft, Normal Bowel Sounds. absent: Mass, Organomegaly - Rectal Exam Rectal Exam: Deferred - Extremities Exam Extremities Exam: Full ROM, Normal Capillary Refill, Normal Inspection. absent : Calf Tenderness, Joint Swelling, Pedal Edema, Tenderness - Back Exam Back Exam: NORMAL INSPECTION - Neurological Exam Neurological Exam: Alert, Awake, Oriented x3 - Psychiatric Exam Psychiatric exam: Normal Affect, Normal Mood - Skin Skin Exam: Intact, Normal Color, Warm Assessment and Plan - Assessment and Plan (Free Text) Assessment: 87 yo female with history of HTN and Arthritis 6 days s/p cholecystectomy noted to have laboured breathing and chest congestion Plan: 1). R/O PE - Although patient had recent surgery her D-dimer was markedly elevated at 4887 and ProBNP was likewise elevated at 2980 - Venous Doppler of both LE: negative for DVT - VQ scan - no acute findings - Pulmonary consult with Dr Brambila - Recommendations appreciated - Dr Ángel Garrett re-consulted - Recommendations appreciated - Heparin stopped because of bloody stools 2). Biliary Cholic with cholelithiasis - S/P Cholecystectomy, day 6 - Iatrogenic enterotomy, day 6 - Soft blend diet - Pain management - Surgical of Dr Pineda following 3). Lower GI bleed - Monitor H&H - Discontinued Pepcid, started on Protonix - Monitor vitals - Heparin DC because of blood in stools 4). ARF - Renal function stable - Renal consult with Dr Yu - Recommendations appreciated - Monitor labs 5). HTN - BP stable - Toprol 50 mg PO - monitor vitals 6). Hyperlipidemia - Atorvastatin 10 mg PO 7). DVT Prophylaxis - Venodyne boots while in bed - Ambulating - Heparin DC because of blood in stools
--- NOTE | 2017-12-03 13:41 | CP.PCM.PN ---
Subjective - Date & Time of Evaluation Date of Evaluation: 12/03/17 Time of Evaluation: 11:00 - Subjective Subjective: F/U Acute Bronchitis. Pt with no A/D, occasional cough. Objective - Vital Signs/Intake and Output Vital Signs (last 24 hours): Temp Pulse Resp BP Pulse Ox 97.7 F 90 18 156/75 H 96 12/03/17 12:38 12/03/17 12:38 12/03/17 12:38 12/03/17 12:38 12/03/17 12:38 - Medications Medications: Current Medications Acetylcysteine (Acetylcysteine 20%) 3 ml INH RBID [facility] Stop: 12/04/17 08:01 Albuterol/Ipratropium (Duoneb 3 Mg/0.5 Mg (3 Ml) Ud) 3 ml INH Q6H [facility] Last Admin: 12/03/17 13:36 Dose: 3 ml Albuterol/Ipratropium (Duoneb 3 Mg/0.5 Mg (3 Ml) Ud) 3 ml INH RQ4 PRN PRN Reason: Shortness of Breath Last Admin: 12/01/17 16:37 Dose: 3 ml Atorvastatin Calcium (Lipitor) 10 mg PO HS [facility] Last Admin: 12/02/17 23:43 Dose: 10 mg Guaifenesin (Mucinex La) 600 mg PO Q12 [facility] Last Admin: 12/03/17 09:34 Dose: 600 mg Hydromorphone HCl (Dilaudid) 0.5 mg IVP Q4 PRN PRN Reason: Pain, severe (8-10) Last Admin: 11/28/17 11:00 Dose: 0.5 mg Piperacillin Sod/Tazobactam (Sod 2.25 gm/ Sodium Chloride) 100 mls @ 100 mls/ hr IVPB Q8 [facility] PRN Reason: Protocol Last Admin: 12/03/17 09:56 Dose: 100 mls/hr Latanoprost (Xalatan Opht) 1 drop OU HS [facility] Last Admin: 12/02/17 23:44 Dose: 1 drop Metoprolol Succinate (Toprol Xl) 50 mg PO DAILY [facility] Last Admin: 12/03/17 09:35 Dose: 50 mg Morphine Sulfate (Morphine) 4 mg IVP Q4 PRN PRN Reason: Pain, severe (8-10) Ondansetron HCl (Zofran Inj) 4 mg IVP Q4 PRN PRN Reason: Nausea/Vomiting Last Admin: 12/02/17 13:02 Dose: 4 mg Pantoprazole Sodium (Protonix Inj) 40 mg IVP DAILY [facility] Last Admin: 12/03/17 09:36 Dose: 40 mg - Labs Labs: 12/03/17 05:55 12/03/17 05:55 PT 11.3 Seconds (9.8-13.1) 11/30/17 13:00 INR 1.0 (0.9-1.2) 11/30/17 13:00 APTT 88.8 Seconds (25.6-37.1) H D 12/01/17 10:00 - Constitutional Appears: No Acute Distress - Head Exam Head Exam: NORMAL INSPECTION - Eye Exam Eye Exam: PERRL - ENT Exam ENT Exam: Normal Exam - Neck Exam Neck Exam: Normal Inspection - Respiratory Exam Respiratory Exam: Rhonchi (scattered at bases) - Cardiovascular Exam Cardiovascular Exam: REGULAR RHYTHM - GI/Abdominal Exam GI & Abdominal Exam: Soft, Normal Bowel Sounds - Extremities Exam Extremities Exam: Normal Inspection - Back Exam Back Exam: NORMAL INSPECTION - Neurological Exam Neurological Exam: Alert, Awake, Oriented x3. absent: Motor Sensory Deficit - Psychiatric Exam Psychiatric exam: Anxious - Skin Skin Exam: Warm Assessment and Plan (1) Acute bronchitis Status: Acute (2) Respiratory distress Assessment & Plan: Improved. Status: Acute (3) GRETHCEN (acute kidney injury) Status: Acute (4) GI bleeding Status: Acute (5) S/P laparoscopic cholecystectomy Status: Acute - Assessment and Plan (Free Text) Plan: Lung V scan; Low probability PE. f/u CXR, continue Duoneb, Mucomist, Mucinex
[2017-12-03 15:56] VITALS: RESP 20
[2017-12-03] MEDS: Latanoprost 0.005% Opht SOUTION OU SCH (23:28)
[2017-12-04] MEDS: Albuterol-Ipratrop 3 mg / 0.5 (3 ml) UD INH SCH ×4 (01:01→19:17)
[2017-12-04 06:58] LABS: HEMOGLOBIN 9.5 g/dL (12.0-16.0); MEAN CELL VOLUME 97.6 fl (81.0-99.0); MEAN CORPUSCULAR HEMOGLOBIN 33.1 pg (27.0-31.0); MEAN CORPUSCULAR HGB CONC 33.9 g/dL (33.0-37.0); RBC 2.88 Mil/uL (3.80-5.20); RED CELL DISTRIBUTION WIDTH 13.8 % (11.5-14.5); WHITE BLOOD COUNT 8.3 K/uL (4.8-10.8)
[2017-12-04 07:10] LABS: ALB/GLOB RATIO 0.9 (1.0-2.1); CALCIUM 8.6 mg/dL (8.4-10.2)
[2017-12-04] MEDS: Metoprolol Succinate 50 mg XL Tab PO SCH (09:34)
[2017-12-04] MEDS: guaiFENesin 600 mg ER Tab PO SCH (09:34)
--- NOTE | 2017-12-04 09:51 | CP.PCM.PN ---
Subjective - Date & Time of Evaluation Date of Evaluation: 12/04/17 Time of Evaluation: 09:40 - Subjective Subjective: Patient was seen and examined at the bedside. Denies any abdominal pain, tolerating diet. Objective - Vital Signs/Intake and Output Vital Signs (last 24 hours): Temp Pulse Resp BP Pulse Ox 98.5 F 90 20 159/78 H 99 12/04/17 08:00 12/04/17 09:34 12/04/17 08:00 12/04/17 09:34 12/04/17 08:00 - Medications Medications: Current Medications Albuterol/Ipratropium (Duoneb 3 Mg/0.5 Mg (3 Ml) Ud) 3 ml INH Q6H ALFREDO Last Admin: 12/04/17 08:22 Dose: 3 ml Albuterol/Ipratropium (Duoneb 3 Mg/0.5 Mg (3 Ml) Ud) 3 ml INH RQ4 PRN PRN Reason: Shortness of Breath Last Admin: 12/01/17 16:37 Dose: 3 ml Atorvastatin Calcium (Lipitor) 10 mg PO HS [facility] Last Admin: 12/03/17 23:27 Dose: 10 mg Guaifenesin (Mucinex La) 600 mg PO Q12 [facility] Last Admin: 12/04/17 09:34 Dose: 600 mg Hydromorphone HCl (Dilaudid) 0.5 mg IVP Q4 PRN PRN Reason: Pain, severe (8-10) Last Admin: 11/28/17 11:00 Dose: 0.5 mg Piperacillin Sod/Tazobactam (Sod 2.25 gm/ Sodium Chloride) 100 mls @ 100 mls/ hr IVPB Q8 ALFREDO PRN Reason: Protocol Last Admin: 12/04/17 09:35 Dose: 100 mls/hr Latanoprost (Xalatan Opht) 1 drop OU HS [facility] Last Admin: 12/03/17 23:28 Dose: 1 drop Metoprolol Succinate (Toprol Xl) 50 mg PO DAILY [facility] Last Admin: 12/04/17 09:34 Dose: 50 mg Morphine Sulfate (Morphine) 4 mg IVP Q4 PRN PRN Reason: Pain, severe (8-10) Ondansetron HCl (Zofran Inj) 4 mg IVP Q4 PRN PRN Reason: Nausea/Vomiting Last Admin: 12/02/17 13:02 Dose: 4 mg Pantoprazole Sodium (Protonix Inj) 40 mg IVP DAILY [facility] Last Admin: 12/04/17 09:34 Dose: 40 mg - Labs Labs: 12/04/17 04:45 12/04/17 04:45 PT 11.3 Seconds (9.8-13.1) 11/30/17 13:00 INR 1.0 (0.9-1.2) 11/30/17 13:00 APTT 88.8 Seconds (25.6-37.1) H D 12/01/17 10:00 - Constitutional Appears: Well, Non-toxic, No Acute Distress - Head Exam Head Exam: ATRAUMATIC, NORMAL INSPECTION, NORMOCEPHALIC - Eye Exam Eye Exam: EOMI, Normal appearance, PERRL Pupil Exam: NORMAL ACCOMODATION, PERRL - ENT Exam ENT Exam: Mucous Membranes Moist, Normal Exam - Neck Exam Neck Exam: Full ROM, Normal Inspection - Respiratory Exam Respiratory Exam: Rhonchi - Cardiovascular Exam Cardiovascular Exam: REGULAR RHYTHM, +S1, +S2 - GI/Abdominal Exam GI & Abdominal Exam: Soft, Normal Bowel Sounds Additional comments: NT, ND, no rebound, no guarding, incisions clean, no erythema, no drainage, dermobond in place - Rectal Exam Rectal Exam: Deferred - Extremities Exam Extremities Exam: Full ROM, Normal Inspection - Neurological Exam Neurological Exam: Alert, Awake, Oriented x3 - Psychiatric Exam Psychiatric exam: Normal Affect, Normal Mood - Skin Skin Exam: Dry, Intact, Normal Color, Warm Assessment and Plan - Assessment and Plan (Free Text) Assessment: 87 y.o. female s/p laparoscopic cholecystectomy and repair of enterotomy Plan: - Continue diet - Pain control - Insentive spirometry - DVT ppx - Out of bed - Physical therapy - Continue care as per medical, nephrology and pulmonary teams - Patient is clear for discharge to rehab from the general surgery stand point
--- NOTE | 2017-12-04 11:34 | CP.PCM.DIS ---
Provider - Provider Date of Admission: 11/26/17 11:43 Attending physician: Cade Reeves Time Spent in preparation of Discharge (in minutes): 20 Hospital Course - Lab Results Lab Results: Most Recent Lab Values WBC 8.3 K/uL (4.8-10.8) 12/04/17 04:45 RBC 2.88 Mil/uL (3.80-5.20) L 12/04/17 04:45 Hgb 9.5 g/dL (12.0-16.0) L 12/04/17 04:45 Hct 28.1 % (34.0-47.0) L 12/04/17 04:45 MCV 97.6 fl (81.0-99.0) 12/04/17 04:45 MCH 33.1 pg (27.0-31.0) H 12/04/17 04:45 MCHC 33.9 g/dL (33.0-37.0) 12/04/17 04:45 RDW 13.8 % (11.5-14.5) 12/04/17 04:45 Plt Count 200 K/uL (130-400) 12/04/17 04:45 MPV 8.3 fl (7.2-11.7) 12/03/17 05:55 Neut % (Auto) 83.8 % (50.0-75.0) H 12/03/17 05:55 Lymph % (Auto) 4.5 % (20.0-40.0) L 12/03/17 05:55 [place] % (Auto) 11.6 % (0.0-10.0) H 12/03/17 05:55 Eos % (Auto) 0.1 % (0.0-4.0) 12/03/17 05:55 Baso % (Auto) 0.0 % (0.0-2.0) 12/03/17 05:55 Neut # 8.9 K/uL (1.8-7.0) H 12/03/17 05:55 Lymph # 0.5 K/uL (1.0-4.3) L 12/03/17 05:55 [place] # 1.2 K/uL (0.0-0.8) H 12/03/17 05:55 Eos # 0.0 K/uL (0.0-0.7) 12/03/17 05:55 Baso # 0.0 K/uL (0.0-0.2) 12/03/17 05:55 Total Counted Cancelled 11/30/17 05:25 Neutrophils % (Manual) 90 % (42-75) H 12/01/17 07:00 Band Neutrophils % 12 % (0-2) H* 11/29/17 05:30 Lymphocytes % (Manual) 3 % (20-50) L 12/01/17 07:00 Reactive Lymphs % 1 % (0-0) H 11/28/17 06:10 Monocytes % (Manual) 7 % (0-10) 12/01/17 07:00 Eosinophils % (Manual) 3 % (0-7) 11/25/17 14:51 Basophils % (Manual) Cancelled 11/30/17 05:25 Metamyelocytes % 1 % (0-0) H 11/29/17 05:30 Myelocytes % Cancelled 11/30/17 05:25 Promyelocytes % Cancelled 11/30/17 05:25 Blast Cells % Cancelled 11/30/17 05:25 Plasma Cell % (Manual) Cancelled 11/30/17 05:25 Nucleated RBC % Cancelled 11/30/17 05:25 Hypersegmented Polys Cancelled 11/30/17 05:25 Smudge Cells Cancelled 11/30/17 05:25 Toxic Granulation Present 11/28/17 06:10 Dohle Bodies Cancelled 11/30/17 05:25 Susanne Rods Cancelled 11/30/17 05:25 Platelet Estimate Normal (NORMAL) 12/01/17 07:00 Plt Clumps, EDTA Cancelled 11/30/17 05:25 Large Platelets Present 12/01/17 07:00 Giant Platelets Cancelled 11/30/17 05:25 RBC Morphology Cancelled 11/30/17 05:25 Polychromasia Cancelled 11/30/17 05:25 Hypochromasia (manual) Cancelled 11/30/17 05:25 Poikilocytosis (manual Cancelled 11/30/17 05:25 Basophilic Stippling Cancelled 11/30/17 05:25 Anisocytosis (manual) Slight 12/01/17 07:00 Microcytosis (manual) Cancelled 11/30/17 05:25 Macrocytosis (manual) Slight 12/01/17 07:00 Spherocytes Cancelled 11/30/17 05:25 Sickle Cells Cancelled 11/30/17 05:25 Target Cells Cancelled 11/30/17 05:25 Tear Drop Cells Cancelled 11/30/17 05:25 Ovalocytes Slight 12/01/17 07:00 Stomatocytes Cancelled 11/30/17 05:25 Helmet Cells Cancelled 11/30/17 05:25 Singh-Uval[place] Bodies Cancelled 11/30/17 05:25 Giddings Cells Cancelled 11/30/17 05:25 Acanthocytes (Spur) Cancelled 11/30/17 05:25 Rouleaux Cancelled 11/30/17 05:25 Schistocytes Cancelled 11/30/17 05:25 PT 11.3 Seconds (9.8-13.1) 11/30/17 13:00 INR 1.0 (0.9-1.2) 11/30/17 13:00 APTT 88.8 Seconds (25.6-37.1) H D 12/01/17 10:00 D-Dimer, Quantitative 4887 ng/mlDDU (0-230) H 11/30/17 12:15 pCO2 39 mm/Hg (35-45) 11/30/17 07:01 pO2 63 mm/Hg (80-100) L 11/30/17 07:01 HCO3 24.9 mmol/L (21-28) 11/30/17 07:01 ABG pH 7.41 (7.35-7.45) 11/30/17 07:01 ABG Total CO2 25.9 mmol/L (22-28) 11/30/17 07:01 ABG O2 Saturation 95.7 % (95-98) 11/30/17 07:01 ABG O2 Content 16.2 ML/dL (15-23) 11/30/17 07:01 ABG Base Excess 0.1 mmol/L (-2.0-3.0) 11/30/17 07:01 ABG Hemoglobin 12.4 g/dL (11.7-17.4) 11/30/17 07:01 ABG Carboxyhemoglobin 2.0 % (0.5-1.5) H 11/30/17 07:01 POC ABG HHb (Measured) 4.2 % (0.0-5.0) 11/30/17 07:01 ABG Methemoglobin 1.2 % (0.0-3.0) 11/30/17 07:01 ABG O2 Capacity 16.9 mL/dL (16-24) 11/30/17 07:01 Paramjit Test Yes 11/30/17 07:01 A-a O2 Difference 38.0 mm/Hg 11/30/17 07:01 Hgb O2 Saturation 92.7 % (95.0-98.0) L 11/30/17 07:01 Vent Mode Ra 11/30/17 07:01 FiO2 21.0 % 11/30/17 07:01 Sodium 146 mmol/l (132-148) 12/04/17 04:45 Potassium 3.5 MMOL/L (3.6-5.0) L 12/04/17 04:45 Chloride 106 mmol/L (98-107) 12/04/17 04:45 Carbon Dioxide 30 mmol/L (22-30) 12/04/17 04:45 Anion Gap 14 (10-20) 12/04/17 04:45 BUN 45 mg/dl (7-17) H 12/04/17 04:45 Creatinine 2.0 mg/dl (0.7-1.2) H 12/04/17 04:45 Est GFR ( Amer) 12/04/17 04:45 Est GFR (Non-Af Amer) 24 12/04/17 04:45 Random Glucose 112 mg/dL (65-105) H 12/04/17 04:45 Serum Osmolality 306 mosm/kg (272-300) H 12/02/17 13:15 Calcium 8.6 mg/dL (8.4-10.2) 12/04/17 04:45 Total Bilirubin 0.5 mg/dl (0.2-1.3) 12/04/17 04:45 AST 45 U/L (14-36) H 12/04/17 04:45 ALT 46 U/L (9-52) 12/04/17 04:45 Alkaline Phosphatase 52 U/L (38-126) 12/04/17 04:45 Troponin I 0.0770 ng/mL (0.00-0.120) 11/30/17 10:45 NT-Pro-B Natriuret Pep 2980 pg/ml (0-900) H 11/30/17 10:45 Total Protein 6.2 G/DL (6.3-8.2) L 12/04/17 04:45 Albumin 3.0 g/dL (3.5-5.0) L 12/04/17 04:45 Globulin 3.2 gm/dL (2.2-3.9) 12/04/17 04:45 Albumin/Globulin Ratio 0.9 (1.0-2.1) L 12/04/17 04:45 Lipase 80 U/L (23-300) 11/25/17 14:51 Urine Color Yellow (YELLOW) 12/01/17 23:07 Urine Clarity Cloudy (Clear) 12/01/17 23:07 Urine pH 5.0 (5.0-8.0) 12/01/17 23:07 Ur Specific [place] 1.010 (1.003-1.030) 12/01/17 23:07 Urine Protein 30 mg/dL (NEGATIVE) 12/01/17 23:07 Urine Glucose (UA) Neg mg/dL (Normal) 12/01/17 23:07 Urine Ketones Negative mg/dL (NEGATIVE) 12/01/17 23:07 Urine Blood Large (NEGATIVE) 12/01/17 23:07 Urine Nitrate Negative (NEGATIVE) 12/01/17 23:07 Urine Bilirubin Negative (NEGATIVE) 12/01/17 23:07 Urine Urobilinogen 0.2-1.0 mg/dL (0.2-1.0) 12/01/17 23:07 Ur Leukocyte Esterase Trace Elva/uL (Negative) 12/01/17 23:07 Urine RBC (Auto) 1 /hpf (0-3) 12/01/17 23:07 Urine Microscopic WBC 4 /hpf (0-5) 12/01/17 23:07 Ur Squamous Epith Cells 2 /hpf (0-5) 12/01/17 23:07 Urine Bacteria Rare (<OCC) 12/01/17 23:07 Hyaline Casts 0-2 /hpf (0-2) 12/01/17 23:07 Urine Yeast (Budding) Few /hpf (NEGATIVE) H 12/01/17 23:07 Urine Osmolality 423 mosm/kg (300-1000) 12/03/17 13:10 Ur Random Creatinine 68.4 mg/dL 12/03/17 13:10 Ur Random Sodium 54 meq/L 12/03/17 13:10 Ur Random Potassium 27.3 mmol/L 12/03/17 13:10 Blood Type O POSITIVE 12/01/17 20:55 Antibody Screen Negative 12/01/17 20:55 BBK History Checked Patient has bt 12/01/17 20:55 - Hospital Course Hospital Course: 87 years old female patient with PMHx of HTN, Arthritis, back surgery was admitted to the hospital for acute stomach pain. Upon arrival to the hospital, patient received an abdominal CT scan which confirmed the diagnosis of cholelithisis. Patient was brought to the OR where she received laproscopic cholecystectomy. After the surgery, patient was seen with elevated WBC count, and respiratory distress. Patient was placed on IV abx and fluid restriction which led to an acute kidney injury. Patient was also worked up to rule out pulmonary embolism. Patient was also seen by physical therapy during her stay. Patient has now became stable and is stable to be discharged to [facility]/ TCU for further physical therapy. 1). R/O PE - Venous Doppler of both LE: negative for DVT - VQ scan - no acute findings - Pulmonary consult with Dr Brambila - Cardiology Dr Ángel Garrett consulted - Heparin stopped because of bloody stools 2). Biliary Cholic with cholelithiasis - S/P Cholecystectomy, day 7 - Iatrogenic enterotomy, day 7 - Soft blend diet - Pain management - Surgical of Dr Pineda following 3). Lower GI bleed - Monitor H&H - Discontinued Pepcid, started on Protonix - Monitor vitals - Heparin DC because of blood in stools 4). ARF - Renal function stable - Renal consult with Dr Yu - Monitor labs 5). HTN - BP stable - Toprol 50 mg PO - monitor vitals 6). Hyperlipidemia - Atorvastatin 10 mg PO 7). DVT Prophylaxis - Venodyne boots while in bed - Ambulating - Heparin DC because of blood in stools - Date & Time of H&P Date of H&P: 12/04/17 Time of H&P: 10:00 Discharge Exam - Head Exam Head Exam: ATRAUMATIC, NORMAL INSPECTION, NORMOCEPHALIC - Eye Exam Eye Exam: Normal appearance - ENT Exam ENT Exam: Normal Exam - Neck Exam Neck exam: Full Rom, Normal Inspection - Respiratory Exam Respiratory Exam: Wheezes, NORMAL BREATHING PATTERN, UNREMARKABLE. absent: Rales, Rhonchi - Cardiovascular Exam Cardiovascular Exam: REGULAR RHYTHM, +S1, +S2 - GI/Abdominal Exam GI & Abdominal Exam: Normal Bowel Sounds, Soft, Unremarkable. absent: Mass, Organomegaly - Rectal Exam Rectal Exam: Deferred - Extremities Exam Extremities exam: full ROM, normal capillary refill, normal inspection, pedal pulses present - Neurological Exam Neurological exam: Alert, Normal Gait, Oriented x3 - Psychiatric Exam Psychiatric exam: Normal Affect, Normal Mood - Skin Skin Exam: Dry, Intact, Normal Color, Warm Discharge Plan - Follow Up Plan Condition: STABLE Disposition: HOME/ ROUTINE Instructions: Acute Abdominal Pain (DC), Acute Abdominal Pain (GEN)
--- NOTE | 2017-12-04 11:38 | CP.PCM.PN ---
Subjective - Date & Time of Evaluation Date of Evaluation: 12/04/17 Time of Evaluation: 11:36 - Subjective Subjective: Patient out of bed sitting in the chair appeared to be comfortable No nausea no vomiting Vital sign noted to be okay Objective - Vital Signs/Intake and Output Vital Signs (last 24 hours): Temp Pulse Resp BP Pulse Ox 98.5 F 90 20 159/78 H 99 12/04/17 08:00 12/04/17 09:34 12/04/17 08:00 12/04/17 09:34 12/04/17 08:00 - Medications Medications: Current Medications Albuterol/Ipratropium (Duoneb 3 Mg/0.5 Mg (3 Ml) Ud) 3 ml INH Q6H [facility]O Last Admin: 12/04/17 08:22 Dose: 3 ml Albuterol/Ipratropium (Duoneb 3 Mg/0.5 Mg (3 Ml) Ud) 3 ml INH RQ4 PRN PRN Reason: Shortness of Breath Last Admin: 12/01/17 16:37 Dose: 3 ml Atorvastatin Calcium (Lipitor) 10 mg PO HS [facility] Last Admin: 12/03/17 23:27 Dose: 10 mg Guaifenesin (Mucinex La) 600 mg PO Q12 [facility] Last Admin: 12/04/17 09:34 Dose: 600 mg Hydromorphone HCl (Dilaudid) 0.5 mg IVP Q4 PRN PRN Reason: Pain, severe (8-10) Last Admin: 11/28/17 11:00 Dose: 0.5 mg Piperacillin Sod/Tazobactam (Sod 2.25 gm/ Sodium Chloride) 50 mls @ 50 mls/hr IVPB Q8 ALFREDO PRN Reason: Protocol Latanoprost (Xalatan Opht) 1 drop OU HS [facility] Last Admin: 12/03/17 23:28 Dose: 1 drop Metoprolol Succinate (Toprol Xl) 50 mg PO DAILY [facility] Last Admin: 12/04/17 09:34 Dose: 50 mg Morphine Sulfate (Morphine) 4 mg IVP Q4 PRN PRN Reason: Pain, severe (8-10) Ondansetron HCl (Zofran Inj) 4 mg IVP Q4 PRN PRN Reason: Nausea/Vomiting Last Admin: 12/02/17 13:02 Dose: 4 mg Pantoprazole Sodium (Protonix Inj) 40 mg IVP DAILY [facility] Last Admin: 12/04/17 09:34 Dose: 40 mg - Labs Labs: 12/04/17 04:45 12/04/17 04:45 PT 11.3 Seconds (9.8-13.1) 11/30/17 13:00 INR 1.0 (0.9-1.2) 11/30/17 13:00 APTT 88.8 Seconds (25.6-37.1) H D 12/01/17 10:00 - Constitutional Appears: No Acute Distress - ENT Exam ENT Exam: Mucous Membranes Moist - Respiratory Exam Respiratory Exam: absent: Chest Wall Tenderness - Cardiovascular Exam Cardiovascular Exam: absent: Gallop, JVD, Rubs - GI/Abdominal Exam GI & Abdominal Exam: Soft, Normal Bowel Sounds - Extremities Exam Extremities Exam: absent: Calf Tenderness - Back Exam Back Exam: absent: CVA tenderness (L), CVA tenderness (R) - Neurological Exam Neurological Exam: Alert - Psychiatric Exam Psychiatric exam: Normal Affect - Skin Skin Exam: absent: Cyanosis Assessment and Plan (1) GRETCHEN (acute kidney injury) Assessment & Plan: Serum creatinine coming down slowly 2.0 Patient is recovering from acute kidney injury. Serum electrolytes appear to be acceptable and okay Potassium is okay as well Continue as per primary team Status: Acute (2) Abdominal pain Status: Acute (3) Cholelithiasis Status: Acute
--- NOTE | 2017-12-04 13:48 | CP.PCM.PN ---
Subjective - Subjective Subjective: no AD, no cough , no SOB , no chest congestion Objective - Vital Signs/Intake and Output Vital Signs (last 24 hours): Temp Pulse Resp BP Pulse Ox 97.7 F 94 H 20 137/83 95 12/04/17 12:31 12/04/17 12:31 12/04/17 12:31 12/04/17 12:31 12/04/17 12:31 - Medications Medications: Current Medications Albuterol/Ipratropium (Duoneb 3 Mg/0.5 Mg (3 Ml) Ud) 3 ml INH Q6H [facility] Last Admin: 12/04/17 13:28 Dose: 3 ml Albuterol/Ipratropium (Duoneb 3 Mg/0.5 Mg (3 Ml) Ud) 3 ml INH RQ4 PRN PRN Reason: Shortness of Breath Last Admin: 12/01/17 16:37 Dose: 3 ml Atorvastatin Calcium (Lipitor) 10 mg PO HS [facility] Last Admin: 12/03/17 23:27 Dose: 10 mg Guaifenesin (Mucinex La) 600 mg PO Q12 [facility] Last Admin: 12/04/17 09:34 Dose: 600 mg Hydromorphone HCl (Dilaudid) 0.5 mg IVP Q4 PRN PRN Reason: Pain, severe (8-10) Last Admin: 11/28/17 11:00 Dose: 0.5 mg Piperacillin Sod/Tazobactam (Sod 2.25 gm/ Sodium Chloride) 50 mls @ 50 mls/hr IVPB Q8 [facility]O PRN Reason: Protocol Latanoprost (Xalatan Opht) 1 drop OU HS [facility] Last Admin: 12/03/17 23:28 Dose: 1 drop Metoprolol Succinate (Toprol Xl) 50 mg PO DAILY [facility] Last Admin: 12/04/17 09:34 Dose: 50 mg Morphine Sulfate (Morphine) 4 mg IVP Q4 PRN PRN Reason: Pain, severe (8-10) Ondansetron HCl (Zofran Inj) 4 mg IVP Q4 PRN PRN Reason: Nausea/Vomiting Last Admin: 12/02/17 13:02 Dose: 4 mg Pantoprazole Sodium (Protonix Inj) 40 mg IVP DAILY [facility] Last Admin: 12/04/17 09:34 Dose: 40 mg - Labs Labs: 12/04/17 04:45 12/04/17 04:45 PT 11.3 Seconds (9.8-13.1) 11/30/17 13:00 INR 1.0 (0.9-1.2) 11/30/17 13:00 APTT 88.8 Seconds (25.6-37.1) H D 12/01/17 10:00 - Constitutional Appears: No Acute Distress - Head Exam Head Exam: NORMAL INSPECTION - Eye Exam Eye Exam: PERRL - ENT Exam ENT Exam: Normal Exam - Neck Exam Neck Exam: Normal Inspection - Respiratory Exam Respiratory Exam: Decreased Breath Sounds (at bases) - Cardiovascular Exam Cardiovascular Exam: REGULAR RHYTHM - GI/Abdominal Exam GI & Abdominal Exam: Soft, Normal Bowel Sounds. absent: Guarding, Rebound Additional comments: surgical incision clean - Extremities Exam Extremities Exam: Normal Inspection - Back Exam Back Exam: NORMAL INSPECTION - Neurological Exam Neurological Exam: Alert, CN II-XII Intact Additional comments: no focal motor/sensory deficit - Psychiatric Exam Additional comments: calm - Skin Skin Exam: Warm Assessment and Plan (1) Acute bronchitis Assessment & Plan: improved Status: Acute (2) Respiratory distress Status: Resolved (3) S/P laparoscopic cholecystectomy Assessment & Plan: and repair of enterotomy Status: Acute - Assessment and Plan (Free Text) Plan: ulmonary cleared to DD home, discussed with attendant. P
[2017-12-04] MEDS ORDERED: Piperacillin/Tazobact 2.25 GM in Sodium Chloride 0.9% 50 ML IVPB SCH (17:00)
[2017-12-04 19:31] VITALS: BP 165/82; PULSE 88; TEMP 97.4; O2SAT 97
== END 2017-12-04 19:40 | disposition home or self-care (01) | DRG 418 ==
LOC: H.ER 12:18 → H.ERHOLD 19:34 → H.MEDSURG1 21:23 → OBSVTOIN 11-26 11:43 → H.TEL 11-30 17:24
PROVIDERS: ADMIT Internal Medicine; ATTEND Internal Medicine
PROC: 0DQ84ZZ Repair Small Intestine, Percutaneous Endoscopic Approach (ICD-10-PCS; 2017-11-27)
PROC: 0DN84ZZ Release Small Intestine, Percutaneous Endoscopic Approach (ICD-10-PCS; 2017-11-27)
PROC: 0DNW4ZZ Release Peritoneum, Percutaneous Endoscopic Approach (ICD-10-PCS; 2017-11-27)
PROC: 3E0F7GC Introduction of Other Therapeutic Substance into Respiratory Tract, Via Natural or Artificial Opening (ICD-10-PCS; 2017-11-27)
PROC: 0FT44ZZ Resection of Gallbladder, Percutaneous Endoscopic Approach (ICD-10-PCS; principal; 2017-11-27 12:30)
DX: K80.00 Calculus of gallbladder with acute cholecystitis without obstruction (principal); N17.9 Acute kidney failure, unspecified; K66.0 Peritoneal adhesions (postprocedural) (postinfection); E86.0 Dehydration; D64.9 Anemia, unspecified; J20.9 Acute bronchitis, unspecified; K92.1 Melena; I10 Essential (primary) hypertension; E78.5 Hyperlipidemia, unspecified; E87.6 Hypokalemia; K57.30 Diverticulosis of large intestine without perforation or abscess without bleeding; E78.00 Pure hypercholesterolemia, unspecified; F32.9 Major depressive disorder, single episode, unspecified

== ENCOUNTER 2017-12-21 16:57 | Inpatient (IN) | payer MEDICARE, MEDICAID ==
[2017-12-21 16:57] VITALS: BMI 29.5
[2017-12-21] MEDS ORDERED: Piperacillin/Tazobact 4.5 GM in Sodium Chloride 0.9% 100 ML IVPB STA (17:50)
[2017-12-21] MEDS ORDERED: Vancomycin 500 mg Inj IVPB STA (17:51)
--- NOTE | 2017-12-21 18:15 | ED PDOC ---
HPI: Abdomen Time Seen by Provider: 12/21/17 17:26 Chief Complaint (Nursing): Abdominal Pain Chief Complaint (Provider): Abdominal Pain History Per: Patient History/Exam Limitations: no limitations Onset/Duration Of Symptoms: Days Outside of [place] travel?: No Current Symptoms Are (Timing): Still Present Exacerbating Factors: None Alleviating Factors: None Additional Complaint(s): 87 year old female presents to the ED post cholecystectomy 11/23/17 presents to the ED complaining of abdmoimal pain and drainage from the surgical wound site. Patient states the wound has been draining since Saturday. She reports that she was seen by Dr. Howard who prescribed her antibiotics and scheduled her to have a CT scan performed. Abnormal Vaginal Bleeding: No Past Medical History Reviewed: Historical Data, Nursing Documentation, Vital Signs Vital Signs: Last Vital Signs Temp 98.7 F 12/21/17 17:04 Pulse 103 H 12/21/17 17:04 Resp 16 12/21/17 17:04 BP 127/68 12/21/17 17:04 Pulse Ox 100 12/21/17 18:27 - Medical History PMH: Arthritis, Depression, HTN, Hypercholesterolemia Denies: Chronic Kidney Disease - Surgical History Surgical History: Appendectomy - Family History Family History: States: Unknown Family Hx - Living Arrangements Living Arrangements: With Family - Social History Current smoker - smoking cessation education provided: No Ex-Smoker (has not smoked in the last 12 months): No Alcohol: None Drugs: Denies - Home Medications Home Medications: Ambulatory Orders Medication Instructions Recorded Metoprolol Succinate [Toprol XL] 50 mg PO DAILY 10/09/16 Acetaminophen [Tylenol 325mg tab] 650 mg PO Q6 PRN #20 tab 12/04/17 Amoxicillin/Clavulanate [Augmentin 1 tab PO Q12 #10 tab 12/04/17 875 MG-125 MG] Latanoprost 0.005% Opht [Xalatan 1 drop OU HS bottle 12/04/17 Opht] Pantoprazole Sodium [Protonix] 40 mg PO DAILY #30 ect 12/04/17 Simvastatin 20 mg PO HS #30 tab 12/04/17 - Allergies Allergies/Adverse Reactions: Allergies Allergy/AdvReac Type Severity Reaction Status Date / Time Penicillins Allergy RASH Verified 12/21/17 17:08 Review of Systems ROS Statement: Except As Marked, All Systems Reviewed And Found Negative Constitutional: Negative for: Fever Gastrointestinal: Positive for: Abdominal Pain (draining from surgical site). Negative for: Nausea, Vomiting Physical Exam - Reviewed Nursing Documentation Reviewed: Yes Vital Signs Reviewed: Yes - Physical Exam Appears: Positive for: Non-toxic, No Acute Distress Head Exam: Positive for: NORMAL INSPECTION Skin: Positive for: Warm, Dry, Pallor. Negative for: Jaundice Eye Exam: Positive for: Normal appearance, EOMI, PERRL ENT: Negative for: Normal ENT Inspection (Mucous membranes slightly dry and pink ) Neck: Positive for: Normal, Painless ROM, Supple Cardiovascular/Chest: Positive for: Regular Rate, Rhythm, Chest Non Tender. Negative for: Tachycardia Respiratory: Positive for: Normal Breath Sounds. Negative for: Rhonchi, Wheezing, Respiratory Distress Gastrointestinal/Abdominal: Positive for: Bowel Sounds, Soft, Tenderness ( Abdomen surgical site is fluctuate and tender.), Other (Abdomen surgical site is fluctuate, tender and draining green purulent material; actively surrounding erythema; findings are localized to the surgical incision site; no peripheral edema.). Negative for: Mass, Guarding Back: Positive for: Normal Inspection. Negative for: L CVA Tenderness, R CVA Tenderness Extremity: Positive for: Normal ROM. Negative for: Tenderness, Deformity, Swelling Neurologic/Psych: Positive for: Alert, Oriented. Negative for: Motor/Sensory Deficits - Laboratory Results Result Diagrams: 12/21/17 18:15 12/21/17 18:15 - ECG O2 Sat by Pulse Oximetry: 100 (RA) Pulse Ox Interpretation: Normal Medical Decision Making Medical Decision Makin Initial Impression 87 y/o female presenting with post operative wound infection Initial Plan: * CT ABD&PELV * CMP * NPO * CBC * Partial Thromboplastin * Prothrombin time * Vancomysin inj 1gm NS 250mL IVPB * Zosyn 4.5gm NS 100 ml IVPB * Blood Culture * Reevaluation Documented by Trudy Ho acting as a scribe for Cyril Rodriguez DO. All medical record entries made by the Scribe were at my direction and personally dictated by me. I have reviewed the chart and agree that the record accurately reflects my personal performance of the history, physical exam, medical decision making, and the department course for this patient. I have also personally directed, reviewed, and agree with the discharge instructions and disposition. Disposition - Clinical Impression Clinical Impression: Postoperative wound infection - Patient ED Disposition Is Patient to be Admitted: Yes Discussed With Dr.: Michael Lawler Doctor Will See Patient In The: Hospital Counseled Patient/Family Regarding: Studies Performed - Disposition Disposition Time: 18:40 Condition: STABLE Forms: [employer] Connect (Indonesian)
[2017-12-21 18:26] LABS: BASO % 0.6 % (0.0-2.0); EOS # 0.1 K/uL (0.0-0.7); EOS % 1.5 % (0.0-4.0); HEMOGLOBIN 8.1 g/dL (12.0-16.0); LYMPH # 0.8 K/uL (1.0-4.3); LYMPH % 14.9 % (20.0-40.0); MEAN CELL VOLUME 96.2 fl (81.0-99.0); MEAN CORPUSCULAR HEMOGLOBIN 32.3 pg (27.0-31.0); MEAN CORPUSCULAR HGB CONC 33.6 g/dL (33.0-37.0); MEAN PLATELET VOLUME 7.8 fl (7.2-11.7); MONO % 18.2 % (0.0-10.0); NEUT # 3.7 K/uL (1.8-7.0); NEUT % 64.8 % (50.0-75.0); NRBC % 0.1 % (0.0-0.0); RBC 2.49 Mil/uL (3.80-5.20); WHITE BLOOD COUNT 5.6 K/uL (4.8-10.8)
[2017-12-21] MEDS ORDERED: Iohexol 240 (50 ml) PO ONE (18:32)
[2017-12-21 18:33] LABS: ALB/GLOB RATIO 0.9 (1.0-2.1); ALBUMIN 3.3 g/dL (3.5-5.0); CALCIUM 8.5 mg/dL (8.4-10.2)
[2017-12-21 18:39] LABS: PROTHROMBIN TIME 11.7 Seconds (9.8-13.1)
[2017-12-21 18:40] LABS: INR 1.1 (0.9-1.2); PARTIAL THROMBOPLASTIN TIME 27.6 Seconds (25.6-37.1)
[2017-12-21] MEDS ORDERED: Iohexol 240 (50 ml) ONE (18:52)
[2017-12-21] MEDS: Sodium Chloride 0.9% 1,000 ML IV SCH (19:30)
--- NOTE | 2017-12-21 19:43 | CP.PCM.CON ---
<Mariela Oropeza - Last Filed: 12/21/17 19:50> History of Present Illness - History of Present Illness History of Present Illness: General surgery consult note for Dr. Lawler-Mariela Oropeza, PGY-1 Pt S & E at bedside with attending 87F w/PMH sig for recent laparoscopic cholecystectomy with primary closure of iatrogenic enterotomy consulted for enterocutaneous fistula. Pt seen recently by Dr. Lawler in the office with noted low output fistula, sent to ED for the same. Pt has been having diarrhea, coming out of the enterocutaneous fistula. Admits to fatigue, poor appetite. Denies N & V, F & C, C, other complaints. PMH: Arthritis, Depression, HTN, Hypercholesterolemia Medications: As per EMR Allergies: NKDA PSH: Appendectomy, Back surgery, B/L cataract surgery, laparoscopic cholecystectomy, primary closure of iatrogenic enterotomy FH: Unknown SH: Never Smoked, No illegal drug use; No ETOH Review of Systems - Constitutional Constitutional: absent: Increased Appetite Past Patient History - Past Medical History & Family History Past Medical History?: Yes - Past Social History Alcohol: None Drugs: Denies - CARDIAC Hx Hypercholesterolemia: Yes Hx Hypertension: Yes - PULMONARY Hx Respiratory Disorders: No - NEUROLOGICAL Hx Neurological Disorder: No - HEENT Hx HEENT Problems: No - RENAL Hx Chronic Kidney Disease: No - ENDOCRINE/METABOLIC Hx Endocrine Disorders: No - HEMATOLOGICAL/ONCOLOGICAL Hx Blood Disorders: No - INTEGUMENTARY Hx Dermatological Problems: No - MUSCULOSKELETAL/RHEUMATOLOGICAL Hx Arthritis: Yes - GASTROINTESTINAL Hx Gastrointestinal Disorders: No - GENITOURINARY/GYNECOLOGICAL Hx Genitourinary Disorders: No - PSYCHIATRIC Hx Depression: Yes - SURGICAL HISTORY Hx Appendectomy: Yes - ANESTHESIA Hx Anesthesia: Yes Hx Anesthesia Reactions: No Hx Malignant Hyperthermia: No Meds Allergies/Adverse Reactions: Allergies Allergy/AdvReac Type Severity Reaction Status Date / Time Penicillins Allergy RASH Verified 12/21/17 17:08 - Medications Medications: Current Medications Sodium Chloride (Sodium Chloride 0.9%) 1,000 mls @ 150 mls/hr IV .Q6H40M [facility] Stop: 12/22/17 18:41 Lactated Ringer's (Lactated Ringer's) 1,000 mls @ 100 mls/hr IV .Q10H [facility] Physical Exam - Constitutional Appears: Non-toxic, No Acute Distress - Head Exam Head Exam: ATRAUMATIC, NORMAL INSPECTION, NORMOCEPHALIC - Eye Exam Eye Exam: EOMI, Normal appearance - ENT Exam ENT Exam: Mucous Membranes Moist, Normal Exam - Neck Exam Neck exam: Positive for: Full Rom, Normal Inspection - Respiratory Exam Respiratory Exam: NORMAL BREATHING PATTERN - Cardiovascular Exam Cardiovascular Exam: REGULAR RHYTHM, +S1, +S2 - GI/Abdominal Exam GI & Abdominal Exam: Distended, Soft, Tenderness. absent: Firm Additional comments: small enterocutaneous fistula with feculent drainage, erythema - Extremities Exam Extremities exam: Positive for: normal inspection - Neurological Exam Neurological exam: Alert, CN II-XII Intact, Oriented x3 - Psychiatric Exam Psychiatric exam: Normal Affect, Normal Mood - Skin Skin Exam: Erythema (around fistula), Warm Additional comments: see abdominal exam for skin findings Results - Vital Signs Recent Vital Signs: Last Vital Signs Temp 98.7 F 12/21/17 17:04 Pulse 103 H 12/21/17 17:04 Resp 16 12/21/17 17:04 BP 127/68 12/21/17 17:04 Pulse Ox 100 12/21/17 18:40 - Labs Result Diagrams: 12/21/17 18:15 12/21/17 18:15 Labs: Laboratory Results - last 24 hr 12/21/17 12/21/17 12/21/17 18:15 18:15 18:15 WBC 5.6 RBC 2.49 L Hgb 8.1 L Hct 24.0 L MCV 96.2 MCH 32.3 H MCHC 33.6 RDW 13.0 Plt Count 262 MPV 7.8 Neut % (Auto) 64.8 Lymph % (Auto) 14.9 L Candler % (Auto) 18.2 H Eos % (Auto) 1.5 Baso % (Auto) 0.6 Neut # (Auto) 3.7 Lymph # (Auto) 0.8 L Candler # (Auto) 1.0 H Eos # (Auto) 0.1 Baso # (Auto) 0.0 PT 11.7 INR 1.1 APTT 27.6 Sodium 140 Potassium 3.8 Chloride 103 Carbon Dioxide 25 Anion Gap 16 BUN 24 H Creatinine 1.8 H Est GFR ( Amer) 32 Est GFR (Non-Af Amer) 27 Random Glucose 131 H Calcium 8.5 Total Bilirubin 0.5 AST 30 ALT 16 Alkaline Phosphatase 59 Total Protein 6.8 Albumin 3.3 L Globulin 3.5 Albumin/Globulin Ratio 0.9 L Assessment & Plan - Assessment and Plan (Free Text) Assessment: 87F w/abdominal pain, low output fistula Plan: Admit to medical service IV Abx NPO Needs TPN- [facility] [employer] referral for recs Pain control IVF FU CT ab w/PO & IV contrast Wound care/Skin care to fistula Further mgmt as per primary team DW attending Johnna, PGY-1 - Date & Time Date: 12/21/17 Time: 18:45 <Michael Lawler - Last Filed: 12/21/17 19:54> History of Present Illness - History of Present Illness History of Present Illness: Patient was seen and examined at the bedside. Agree with resident's note above. Meds - Medications Medications: Current Medications Sodium Chloride (Sodium Chloride 0.9%) 1,000 mls @ 150 mls/hr IV .Q6H40M [facility] Stop: 12/22/17 18:41 Lactated Ringer's (Lactated Ringer's) 1,000 mls @ 100 mls/hr IV .Q10H [facility] Results - Vital Signs Recent Vital Signs: Last Vital Signs Temp 98.7 F 12/21/17 17:04 Pulse 103 H 12/21/17 17:04 Resp 16 12/21/17 17:04 BP 127/68 12/21/17 17:04 Pulse Ox 100 12/21/17 18:40 - Labs Result Diagrams: 12/21/17 18:15 12/21/17 18:15 Labs: Laboratory Results - last 24 hr 12/21/17 12/21/17 12/21/17 18:15 18:15 18:15 WBC 5.6 RBC 2.49 L Hgb 8.1 L Hct 24.0 L MCV 96.2 MCH 32.3 H MCHC 33.6 RDW 13.0 Plt Count 262 MPV 7.8 Neut % (Auto) 64.8 Lymph % (Auto) 14.9 L Candler % (Auto) 18.2 H Eos % (Auto) 1.5 Baso % (Auto) 0.6 Neut # (Auto) 3.7 Lymph # (Auto) 0.8 L Candler # (Auto) 1.0 H Eos # (Auto) 0.1 Baso # (Auto) 0.0 PT 11.7 INR 1.1 APTT 27.6 Sodium 140 Potassium 3.8 Chloride 103 Carbon Dioxide 25 Anion Gap 16 BUN 24 H Creatinine 1.8 H Est GFR ( Amer) 32 Est GFR (Non-Af Amer) 27 Random Glucose 131 H Calcium 8.5 Total Bilirubin 0.5 AST 30 ALT 16 Alkaline Phosphatase 59 Total Protein 6.8 Albumin 3.3 L Globulin 3.5 Albumin/Globulin Ratio 0.9 L
--- NOTE | 2017-12-21 19:50 | CP.PCM.HP ---
History of Present Illness - History of Present Illness History of Present Illness: 87 yo female with history of HTN and Arthritis presented with abdominal pain on 11/25/2017 and was found to have cholethiasis and cholecystitis. Patient had laparoscopic cholecystectomy and iatrogenic enterotomy 2 days later and had IV Zosyn started the next day. On the 3rd POD patient appeared congested and renal function deteriorated. Her Ddimer was elevated so patient was anticoagulated. It was later on DC when her VQ scan turned out not suggestive of PE and having rectal bleeding. She was advised to go to [facility] or TCU for therapy and continuation of IV antibiotics but the family refused. She was then sent home with PO Augmentin on 12/04/2016. At home, her surgical wound started draining yellowish mucoid material a week ago. Patient not sure if it contain fecal. material. She denied pain, fever or chills. Saw Dr Lawler today and was advised to check in the ER for admission. Present on Admission - Present on Admission Any Indicators Present on Admission: No History of DVT/PE: No History of Uncontrolled Diabetes: No Urinary Catheter: No Decubitus Ulcer Present: No Review of Systems - Review of Systems All systems: reviewed and no additional remarkable complaints except (aside from those mentioned above, 14 point system review were negative by me) Past Patient History - Past Medical History & Family History Past Medical History?: Yes - Past Social History Alcohol: None Drugs: Denies - CARDIAC Hx Hypercholesterolemia: Yes Hx Hypertension: Yes - PULMONARY Hx Respiratory Disorders: No - NEUROLOGICAL Hx Neurological Disorder: No - HEENT Hx HEENT Problems: No - RENAL Hx Chronic Kidney Disease: No - ENDOCRINE/METABOLIC Hx Endocrine Disorders: No - HEMATOLOGICAL/ONCOLOGICAL Hx Blood Disorders: No - INTEGUMENTARY Hx Dermatological Problems: No - MUSCULOSKELETAL/RHEUMATOLOGICAL Hx Arthritis: Yes - GASTROINTESTINAL Hx Gastrointestinal Disorders: No - GENITOURINARY/GYNECOLOGICAL Hx Genitourinary Disorders: No - PSYCHIATRIC Hx Depression: Yes - SURGICAL HISTORY Hx Appendectomy: Yes - ANESTHESIA Hx Anesthesia: Yes Hx Anesthesia Reactions: No Hx Malignant Hyperthermia: No Meds Allergies/Adverse Reactions: Allergies Allergy/AdvReac Type Severity Reaction Status Date / Time Penicillins Allergy RASH Verified 12/21/17 17:08 Physical Exam - Constitutional Appears: No Acute Distress - Head Exam Head Exam: ATRAUMATIC - Eye Exam Eye Exam: absent: Scleral icterus - ENT Exam ENT Exam: Mucous Membranes Moist - Neck Exam Neck exam: Negative for: Meningismus - Respiratory Exam Respiratory Exam: absent: Rhonchi, Wheezes, Respiratory Distress - Cardiovascular Exam Cardiovascular Exam: REGULAR RHYTHM, +S1, +S2 - GI/Abdominal Exam GI & Abdominal Exam: Soft. absent: Tenderness (surgical wound on lower abdomen slightly dehisced draining yellowish fluid material) - Rectal Exam Rectal Exam: Deferred - Extremities Exam Extremities exam: Negative for: pedal edema - Back Exam Back exam: absent: tenderness - Neurological Exam Neurological exam: Alert, Oriented x3 - Psychiatric Exam Psychiatric exam: Normal Affect - Skin Skin Exam: Dry, Intact Results - Vital Signs Recent Vital Signs: Last Vital Signs Temp 98.7 F 12/21/17 17:04 Pulse 103 H 12/21/17 17:04 Resp 16 12/21/17 17:04 BP 127/68 12/21/17 17:04 Pulse Ox 100 12/21/17 18:40 - Labs Result Diagrams: 12/21/17 18:15 12/21/17 18:15 Labs: Laboratory Results - last 24 hr 12/21/17 12/21/17 12/21/17 18:15 18:15 18:15 WBC 5.6 RBC 2.49 L Hgb 8.1 L Hct 24.0 L MCV 96.2 MCH 32.3 H MCHC 33.6 RDW 13.0 Plt Count 262 MPV 7.8 Neut % (Auto) 64.8 Lymph % (Auto) 14.9 L Saline % (Auto) 18.2 H Eos % (Auto) 1.5 Baso % (Auto) 0.6 Neut # (Auto) 3.7 Lymph # (Auto) 0.8 L Saline # (Auto) 1.0 H Eos # (Auto) 0.1 Baso # (Auto) 0.0 PT 11.7 INR 1.1 APTT 27.6 Sodium 140 Potassium 3.8 Chloride 103 Carbon Dioxide 25 Anion Gap 16 BUN 24 H Creatinine 1.8 H Est GFR ( Amer) 32 Est GFR (Non-Af Amer) 27 Random Glucose 131 H Calcium 8.5 Total Bilirubin 0.5 AST 30 ALT 16 Alkaline Phosphatase 59 Total Protein 6.8 Albumin 3.3 L Globulin 3.5 Albumin/Globulin Ratio 0.9 L Assessment & Plan - Assessment and Plan (Free Text) Assessment: 87 yo female with history of HTN and Arthritis presented with abdominal pain on 11/25/2017 and was found to have cholethiasis and cholecystitis. Patient had laparoscopic cholecystectomy and iatrogenic enterotomy 2 days later and had IV Zosyn started the next day. On the 3rd POD patient appeared congested and renal function deteriorated. Her Ddimer was also elevated and patient was anticoagulated for possible PE although surgery itself could have caused it. It was DC when her VQ scan turned out not suggestive of PE and because of rectal bleeding. She was advised to go to [facility] or TCU for therapy and continuation of IV antibiotics but the family refused. She was then sent home with PO Augmentin on 12/04/2016. At home, her surgical wound started draining yellowish mucoid material. Patient not sure if it contained fecal material. She denied pain, fever or chills. Saw Dr Lawler today and was advised to check in the ER for admission. 1. Infected surgical site site might have formed a fistula causing fecal material to ooze out wound culture blood culture Zosyn 3.375gm IV q 6hrs Flagyl 500mg IV q 8hrs ID consult with Dr Doshi surgical consult with Dr Lawler CT scan of abdomen with oral contrast and IV contrast 2. HTN - BP stable - Toprol 50 mg PO - monitor vitals 3. Hyperlipidemia - Atorvastatin 10 mg PO 4. Renal Insufficiency probably secondary to volume depletion was able to recover before with hydration start IVF with NSS at 80cc/hr 5. DVT Prophylaxis Venodyne boots while in bed
[2017-12-21] MEDS: Lactated Ringer's 1,000 ML IV SCH (20:03)
--- NOTE | 2017-12-21 22:21 | CT ---
EXAM: CT Abdomen and Pelvis Without Intravenous Contrast CLINICAL HISTORY: 87 years old, female; Pain; Abdominal pain; Generalized; Prior surgery; Surgery date: <1 month; Surgery type: Cholecystectomy nov 25 2017. Iatronic enterotomy nov 27 2017; Patient HX: Infection surgical site. HTN ckd; Additional info: Infected mesh TECHNIQUE: Axial computed tomography images of the abdomen and pelvis without intravenous contrast. All CT scans at this facility use one or more dose reduction techniques, viz.: automated exposure control; ma/kV adjustment per patient size (including targeted exams where dose is matched to indication; i.e. head); or iterative reconstruction technique. Coronal and sagittal reformatted images were created and reviewed. COMPARISON: CT - ABD PELVIS PO IV CONTRAST 2017-11-25 17:14 FINDINGS: Lower thorax: Small hiatal hernia. ABDOMEN: Liver: Hepatic steatosis. Gallbladder and bile ducts: Cholecystectomy. No ductal dilation. Pancreas: Unremarkable. No ductal dilation. Spleen: Unremarkable. No splenomegaly. Adrenals: Unremarkable. No mass. Kidneys and ureters: Unremarkable. No obstructing stones. No hydronephrosis. Stomach and bowel: Stomach is unremarkable. No small bowel obstruction. Sigmoid diverticulosis. Appendix: No findings to suggest acute appendicitis. PELVIS: Bladder: Unremarkable. No stones. Reproductive: Unremarkable as visualized. ABDOMEN and PELVIS: Intraperitoneal space: Stranding of the mesenteric fat.No free air. No significant fluid collection. Bones/joints: Diffuse spinal degenerative changes. No acute fracture. No dislocation. Soft tissues: Midline abdominal wall wound. Enterocutaneous fistula with subcutaneous fluid collection deep to abdominal wall wound. Series 2 image #63. This contains oral contrast. Vasculature: Atherosclerotic vascular disease. No abdominal aortic aneurysm. Lymph nodes: Unremarkable. No enlarged lymph nodes. IMPRESSION: 1. Enterocutaneous fistula with oral contrast collection deep to anterior abdominal wall wound. 2. Remainder of findings as above.
[2017-12-21] MEDS ORDERED: Piperacillin/Tazobact 3.375 gm Inj IVPB ONE (22:39)
[2017-12-21] MEDS: Piperacillin/Tazobact 3.375 GM in Sodium Chloride 0.9% 100 ML IVPB SCH (23:21)
[2017-12-22] MEDS: metroNIDAZOLE 500mg/100ml NS 100 ML IVPB SCH ×3 (01:13→16:38)
[2017-12-22] MEDS: Sodium Chloride 0.9% 1,000 ML IV SCH ×3 (03:49→14:45)
[2017-12-22] MEDS ORDERED: metroNIDAZOLE 500mg/100ml NS 100 ML IVPB ONE ×3 (03:51→16:13)
[2017-12-22] MEDS ORDERED: Piperacillin/Tazobact 3.375 gm Inj IVPB ONE ×4 (03:51→23:19)
[2017-12-22] MEDS: Piperacillin/Tazobact 3.375 GM in Sodium Chloride 0.9% 100 ML IVPB SCH ×4 (04:01→23:19)
[2017-12-22 05:58] LABS: BASO % 0.5 % (0.0-2.0); EOS # 0.1 K/uL (0.0-0.7); EOS % 1.5 % (0.0-4.0); HEMOGLOBIN 7.7 g/dL (12.0-16.0); LYMPH # 0.8 K/uL (1.0-4.3); LYMPH % 12.5 % (20.0-40.0); MEAN CORPUSCULAR HEMOGLOBIN 31.6 pg (27.0-31.0); MEAN PLATELET VOLUME 7.2 fl (7.2-11.7); NEUT # 4.2 K/uL (1.8-7.0); NEUT % 69.5 % (50.0-75.0); NRBC % 0.1 % (0.0-0.0); RBC 2.43 Mil/uL (3.80-5.20)
[2017-12-22 06:46] LABS: ALBUMIN 2.7 g/dL (3.5-5.0); CALCIUM 8.5 mg/dL (8.4-10.2)
[2017-12-22 06:47] LABS: ALB/GLOB RATIO 0.8 (1.0-2.1)
[2017-12-22] MEDS: Lactated Ringer's 1,000 ML IV SCH ×2 (08:11→15:45)
--- NOTE | 2017-12-22 08:41 | RAD ---
HISTORY: infection COMPARISON: No prior. FINDINGS: LUNGS: No active pulmonary disease. PLEURA: No significant pleural effusion identified, no pneumothorax apparent. CARDIOVASCULAR: Normal. OSSEOUS STRUCTURES: No significant abnormalities. VISUALIZED UPPER ABDOMEN: Normal. OTHER FINDINGS: None. IMPRESSION: No active disease.
[2017-12-22 10:47] LABS: MAGNESIUM 1.8 MG/DL (1.6-2.3)
[2017-12-22] MEDS ORDERED: Multivitamin (MVI) 10 ML, Thiamine 100 MG, Folic Acid 1 MG in Dextrose 5%/0.45% NS 1,00... IV ONE (11:02)
--- NOTE | 2017-12-22 11:07 | CP.PCM.PN ---
<Carlota Colindres - Last Filed: 12/22/17 11:09> Subjective - Date & Time of Evaluation Date of Evaluation: 12/22/17 Time of Evaluation: 09:50 - Subjective Subjective: General SUrgery Dr. Lawler Pt S&E @bedside. NAEO. pt appears uncomfortable but denies abd pain. denies F/C , N/V. pt is NPO. Objective - Vital Signs/Intake and Output Vital Signs (last 24 hours): Temp Pulse Resp BP Pulse Ox 98.2 F 91 H 16 128/68 98 12/22/17 08:00 12/22/17 08:00 12/22/17 08:00 12/22/17 08:00 12/22/17 08:00 - Medications Medications: Current Medications Sodium Chloride (Sodium Chloride 0.9%) 1,000 mls @ 150 mls/hr IV .Q6H40M [facility] Stop: 12/22/17 18:41 Last Admin: 12/22/17 08:11 Dose: Not Given Lactated Ringer's (Lactated Ringer's) 1,000 mls @ 100 mls/hr IV .Q10H [facility] Last Admin: 12/22/17 08:11 Dose: Not Given Piperacillin Sod/Tazobactam (Sod 3.375 gm/ Sodium Chloride) 100 mls @ 100 mls/ hr IVPB Q6 [facility] PRN Reason: Protocol Last Admin: 12/22/17 10:58 Dose: 100 mls/hr Metronidazole (Flagyl 500mg/100ml Ns) 100 mls @ 100 mls/hr IVPB Q8 [facility] PRN Reason: Protocol Last Admin: 12/22/17 09:30 Dose: 100 mls/hr - Labs Labs: 12/22/17 05:30 12/22/17 05:30 PT 11.7 Seconds (9.8-13.1) 12/21/17 18:15 INR 1.1 (0.9-1.2) 12/21/17 18:15 APTT 27.6 Seconds (25.6-37.1) 12/21/17 18:15 - Constitutional Appears: Non-toxic, No Acute Distress - Head Exam Head Exam: NORMAL INSPECTION - Eye Exam Eye Exam: Normal appearance - ENT Exam ENT Exam: Mucous Membranes Moist - Respiratory Exam Respiratory Exam: NORMAL BREATHING PATTERN. absent: Accessory Muscle Use, Respiratory Distress - GI/Abdominal Exam GI & Abdominal Exam: Distended (minimal), Soft. absent: Guarding, Rebound Additional comments: midline enterocutaneous fistula w/ minimal output erythema surrounding fistula likely from skin irritation - Extremities Exam Extremities Exam: Normal Inspection - Neurological Exam Neurological Exam: Alert, Awake - Psychiatric Exam Psychiatric exam: Normal Affect, Normal Mood - Skin Skin Exam: Dry, Warm Assessment and Plan - Assessment and Plan (Free Text) Assessment: 87 y/o F w/ enterocutaneous fistula s/p lap tyesha - PICC placement tomorrow for TPN - hospital out of PPN, [facility] start D5 1/2NS + Banana Bag until PICC placement - cont pain management - keep abd wound panchito/dry - consider wound care consult - cont IV Abx - f/u AM labs - GI/DVT PPx Pt discussed w/ Dr. Bucky Colindres DO PGY2 <Michael Lawler - Last Filed: 12/22/17 16:20> Subjective - Date & Time of Evaluation Time of Evaluation: 15:50 - Subjective Subjective: Patient was seen and examined at the bedside. Agree with resident's note above. Objective - Vital Signs/Intake and Output Vital Signs (last 24 hours): Temp Pulse Resp BP Pulse Ox 97.9 F 81 18 118/67 96 12/22/17 11:49 12/22/17 16:07 12/22/17 16:07 12/22/17 16:07 12/22/17 16:07 - Medications Medications: Current Medications Sodium Chloride (Sodium Chloride 0.9%) 1,000 mls @ 150 mls/hr IV .Q6H40M [facility] Stop: 12/22/17 18:41 Last Admin: 12/22/17 14:45 Dose: Not Given Lactated Ringer's (Lactated Ringer's) 1,000 mls @ 100 mls/hr IV .Q10H [facility] Last Admin: 12/22/17 15:45 Dose: Not Given Piperacillin Sod/Tazobactam (Sod 3.375 gm/ Sodium Chloride) 100 mls @ 100 mls/ hr IVPB Q6 [facility] PRN Reason: Protocol Last Admin: 12/22/17 10:58 Dose: 100 mls/hr Metronidazole (Flagyl 500mg/100ml Ns) 100 mls @ 100 mls/hr IVPB Q8 [facility] PRN Reason: Protocol Last Admin: 12/22/17 09:30 Dose: 100 mls/hr Multivitamins/Vitamin C 10 ml/Thiamine HCl 100 mg/ Folic Acid 1 mg/ Dextrose/ Sodium Chloride 1,011.2 mls @ 30 mls/hr IV .Q24H [facility] Stop: 12/23/17 11:01 Last Admin: 12/22/17 11:53 Dose: 30 mls/hr Dextrose/Sodium Chloride (Dextrose 5%/0.45% Ns 1000 Ml) 1,000 mls @ 80 mls/hr IV .[id number] [facility] Stop: 12/23/17 11:03 Last Admin: 12/22/17 12:47 Dose: 80 mls/hr Insulin Human Regular (Humulin R) 0 units SC ACCU-CHECK [facility] PRN Reason: Protocol Last Admin: 12/22/17 12:52 Dose: Not Given - Labs Labs: 12/22/17 05:30 12/22/17 05:30 PT 11.7 Seconds (9.8-13.1) 12/21/17 18:15 INR 1.1 (0.9-1.2) 12/21/17 18:15 APTT 27.6 Seconds (25.6-37.1) 12/21/17 18:15
[2017-12-22] MEDS: Dextrose 5%/0.45% NS 1,000 ML IV SCH ×2 (12:47→23:45)
[2017-12-22] MEDS: Insulin Regular 100 units/ml SC SCH ×3 (12:52→23:22)
--- NOTE | 2017-12-22 15:46 | CP.PCM.PN ---
Subjective - Date & Time of Evaluation Date of Evaluation: 12/22/17 Time of Evaluation: 15:00 - Subjective Subjective: Patient seen and examined. Denied having diarrhea but stools were soft. Objective - Vital Signs/Intake and Output Vital Signs (last 24 hours): Temp Pulse Resp BP Pulse Ox 97.9 F 78 16 134/69 97 12/22/17 11:49 12/22/17 11:49 12/22/17 11:49 12/22/17 11:49 12/22/17 11:49 - Medications Medications: Current Medications Sodium Chloride (Sodium Chloride 0.9%) 1,000 mls @ 150 mls/hr IV .Q6H40M [facility] Stop: 12/22/17 18:41 Last Admin: 12/22/17 08:11 Dose: Not Given Lactated Ringer's (Lactated Ringer's) 1,000 mls @ 100 mls/hr IV .Q10H [facility] Last Admin: 12/22/17 08:11 Dose: Not Given Piperacillin Sod/Tazobactam (Sod 3.375 gm/ Sodium Chloride) 100 mls @ 100 mls/ hr IVPB Q6 [facility] PRN Reason: Protocol Last Admin: 12/22/17 10:58 Dose: 100 mls/hr Metronidazole (Flagyl 500mg/100ml Ns) 100 mls @ 100 mls/hr IVPB Q8 [facility] PRN Reason: Protocol Last Admin: 12/22/17 09:30 Dose: 100 mls/hr Multivitamins/Vitamin C 10 ml/Thiamine HCl 100 mg/ Folic Acid 1 mg/ Dextrose/ Sodium Chloride 1,011.2 mls @ 30 mls/hr IV .Q24H [facility] Stop: 12/23/17 11:01 Last Admin: 12/22/17 11:53 Dose: 30 mls/hr Dextrose/Sodium Chloride (Dextrose 5%/0.45% Ns 1000 Ml) 1,000 mls @ 80 mls/hr IV .[id number] [facility] Stop: 12/23/17 11:03 Last Admin: 12/22/17 12:47 Dose: 80 mls/hr Insulin Human Regular (Humulin R) 0 units SC ACCU-CHECK [facility] PRN Reason: Protocol Last Admin: 12/22/17 12:52 Dose: Not Given - Labs Labs: 12/22/17 05:30 12/22/17 05:30 PT 11.7 Seconds (9.8-13.1) 12/21/17 18:15 INR 1.1 (0.9-1.2) 12/21/17 18:15 APTT 27.6 Seconds (25.6-37.1) 12/21/17 18:15 - Constitutional Appears: No Acute Distress - Head Exam Head Exam: ATRAUMATIC - Eye Exam Eye Exam: absent: Scleral icterus - ENT Exam ENT Exam: Mucous Membranes Moist - Neck Exam Neck Exam: absent: Meningismus - Respiratory Exam Respiratory Exam: absent: Rhonchi, Wheezes, Respiratory Distress - Cardiovascular Exam Cardiovascular Exam: REGULAR RHYTHM, +S1, +S2 - GI/Abdominal Exam GI & Abdominal Exam: Soft. absent: Tenderness - Rectal Exam Rectal Exam: Deferred - Back Exam Back Exam: absent: tenderness - Neurological Exam Neurological Exam: Alert, Oriented x3 - Psychiatric Exam Psychiatric exam: Normal Affect - Skin Skin Exam: Dry, Intact Assessment and Plan - Assessment and Plan (Free Text) Assessment: 87 yo female with history of HTN and Arthritis presented with abdominal pain on 11/25/2017 and was found to have cholethiasis and cholecystitis. Patient had laparoscopic cholecystectomy and iatrogenic enterotomy. Patient was advised to go to [facility] or TCU for therapy and continuation of IV antibiotics but the family refused. She was sent home with PO Augmentin on 12/04/2016. At home, her surgical wound started draining fecal material. 1. Enterocutaneous Fistula keep NPO as per Dr Lawler to decrease passage of fecal material on fistula with the hope that it closed continue Zosyn and Flagyl ID consult with Dr Doshi surgical consult with Dr Lawler 2. HTN BP stable Toprol 50 mg PO monitor vitals 3. Hyperlipidemia Atorvastatin 10 mg PO 4. Renal Insufficiency probably secondary to volume depletion was able to recover before with hydration continue IVF with D5W as TPN was not available 5. Anemia blood loss from surgery HgB: 7.7. transfuse 2 units of PRBC 6. DVT Prophylaxis Venodyne boots while in bed
[2017-12-23] MEDS: metroNIDAZOLE 500mg/100ml NS 100 ML IVPB SCH ×3 (02:17→18:00)
[2017-12-23] MEDS: Lactated Ringer's 1,000 ML IV SCH ×3 (03:56→23:57)
[2017-12-23] MEDS ORDERED: Piperacillin/Tazobact 3.375 gm Inj IVPB ONE (04:04)
[2017-12-23] MEDS: Piperacillin/Tazobact 3.375 GM in Sodium Chloride 0.9% 100 ML IVPB SCH ×4 (04:09→21:22)
[2017-12-23 06:35] LABS: BASO % 0.5 % (0.0-2.0); EOS # 0.1 K/uL (0.0-0.7); EOS % 2.2 % (0.0-4.0); HEMOGLOBIN 7.7 g/dL (12.0-16.0); LYMPH # 0.6 K/uL (1.0-4.3); LYMPH % 10.4 % (20.0-40.0); MEAN CELL VOLUME 96.4 fl (81.0-99.0); MEAN CORPUSCULAR HEMOGLOBIN 31.6 pg (27.0-31.0); MEAN CORPUSCULAR HGB CONC 32.8 g/dL (33.0-37.0); MEAN PLATELET VOLUME 7.1 fl (7.2-11.7); MONO # 0.8 K/uL (0.0-0.8); MONO % 13.8 % (0.0-10.0); NEUT # 4.1 K/uL (1.8-7.0); NEUT % 73.1 % (50.0-75.0); NRBC % 0.1 % (0.0-0.0); RBC 2.43 Mil/uL (3.80-5.20); RED CELL DISTRIBUTION WIDTH 13.2 % (11.5-14.5); WHITE BLOOD COUNT 5.7 K/uL (4.8-10.8)
[2017-12-23 06:36] LABS: CALCIUM 8.3 mg/dL (8.4-10.2)
--- NOTE | 2017-12-23 07:29 | CP.PCM.PN ---
<Twin Harper - Last Filed: 12/23/17 07:26> Subjective - Date & Time of Evaluation Date of Evaluation: 12/23/17 Time of Evaluation: 07:26 - Subjective Subjective: General Surgery: Dr Lawler Pt S&E. Resting comfortably in ED. Pending telemetry bed opening. No complaints. Minimal pain around fistula site. Pt is for PICC today. Ostomy bag placed over fistula to better manage drainage. Objective - Vital Signs/Intake and Output Vital Signs (last 24 hours): Temp Pulse Resp BP Pulse Ox 98.3 F 82 13 139/69 98 12/23/17 06:24 12/23/17 05:24 12/23/17 05:24 12/23/17 05:24 12/23/17 05:24 - Medications Medications: Current Medications Lactated Ringer's (Lactated Ringer's) 1,000 mls @ 100 mls/hr IV .Q10H [facility] Last Admin: 12/23/17 03:56 Dose: Not Given Piperacillin Sod/Tazobactam (Sod 3.375 gm/ Sodium Chloride) 100 mls @ 100 mls/ hr IVPB Q6 ALFREDO PRN Reason: Protocol Last Admin: 12/23/17 04:09 Dose: 100 mls/hr Metronidazole (Flagyl 500mg/100ml Ns) 100 mls @ 100 mls/hr IVPB Q8 ALFREDO PRN Reason: Protocol Last Admin: 12/23/17 02:17 Dose: 100 mls/hr Multivitamins/Vitamin C 10 ml/Thiamine HCl 100 mg/ Folic Acid 1 mg/ Dextrose/ Sodium Chloride 1,011.2 mls @ 30 mls/hr IV .Q24H ONE Stop: 12/23/17 11:01 Last Admin: 12/22/17 11:53 Dose: 30 mls/hr Dextrose/Sodium Chloride (Dextrose 5%/0.45% Ns 1000 Ml) 1,000 mls @ 80 mls/hr IV .[id number] [facility] Stop: 12/23/17 11:03 Last Admin: 12/22/17 23:45 Dose: Not Given Insulin Human Regular (Humulin R) 0 units SC ACCU-CHECK ALFREDO PRN Reason: Protocol Last Admin: 12/22/17 23:22 Dose: Not Given - Labs Labs: 12/23/17 05:50 12/23/17 05:50 PT 11.7 Seconds (9.8-13.1) 12/21/17 18:15 INR 1.1 (0.9-1.2) 12/21/17 18:15 APTT 27.6 Seconds (25.6-37.1) 12/21/17 18:15 - Constitutional Appears: Non-toxic, No Acute Distress - ENT Exam ENT Exam: Mucous Membranes Moist - Respiratory Exam Respiratory Exam: absent: Accessory Muscle Use, Respiratory Distress - Cardiovascular Exam Cardiovascular Exam: REGULAR RHYTHM. absent: Tachycardia - GI/Abdominal Exam GI & Abdominal Exam: Soft. 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 Agree with resident's note above. Objective - Vital Signs/Intake and Output Vital Signs (last 24 hours): Temp Pulse Resp BP Pulse Ox 98.1 F 78 18 132/76 98 12/23/17 07:30 12/23/17 07:30 12/23/17 07:30 12/23/17 07:30 12/23/17 07:30 - Medications Medications: Current Medications Lactated Ringer's (Lactated Ringer's) 1,000 mls @ 100 mls/hr IV .Q10H [facility] Last Admin: 12/23/17 03:56 Dose: Not Given Piperacillin Sod/Tazobactam (Sod 3.375 gm/ Sodium Chloride) 100 mls @ 100 mls/ hr IVPB Q6 ALFREDO PRN Reason: Protocol Last Admin: 12/23/17 04:09 Dose: 100 mls/hr Metronidazole (Flagyl 500mg/100ml Ns) 100 mls @ 100 mls/hr IVPB Q8 ALFREDO PRN Reason: Protocol Last Admin: 12/23/17 02:17 Dose: 100 mls/hr Multivitamins/Vitamin C 10 ml/Thiamine HCl 100 mg/ Folic Acid 1 mg/ Dextrose/ Sodium Chloride 1,011.2 mls @ 30 mls/hr IV .Q24H ONE Stop: 12/23/17 11:01 Last Admin: 12/22/17 11:53 Dose: 30 mls/hr Dextrose/Sodium Chloride (Dextrose 5%/0.45% Ns 1000 Ml) 1,000 mls @ 80 mls/hr IV .[id number] [facility] Stop: 12/23/17 11:03 Last Admin: 12/22/17 23:45 Dose: Not Given Insulin Human Regular (Humulin R) 0 units SC ACCU-CHECK ALFREDO PRN Reason: Protocol Last Admin: 12/23/17 09:06 Dose: Not Given - Labs Labs: 12/23/17 05:50 12/23/17 05:50 PT 11.7 Seconds (9.8-13.1) 12/21/17 18:15 INR 1.1 (0.9-1.2) 12/21/17 18:15 APTT 27.6 Seconds (25.6-37.1) 12/21/17 18:15
[2017-12-23] MEDS: Insulin Regular 100 units/ml SC SCH ×3 (09:06→23:19)
--- NOTE | 2017-12-23 10:28 | CP.PCM.CON ---
History of Present Illness - History of Present Illness History of Present Illness: Infectious Disease Consultation Note- asked to see this patient at the request of the hospitalist for help with antibiotic . HPI- Most of the history obtained from the hospitalista dn medical chart and pt's daughter. Pt. is a very pleasant 87 y/o [place]an speaking female with PMH of HTN, arthritis who was initially admitted on 11/25/2017 for abd pain and was found to have cholelithiasis and cholecystitis and had laporoscopic cholecystectomy and Iatrogenic enterotomy 2 days later and was on IV zosyn on that admission for this and apparently she was advised to go to [facility] for continuation of Iv antibiotics but her family had refused and apparently she was d/c home on oral augmentin on 12/04/2017 . as per pt's daughter who is at bedside her surgical wound site started draining yellowish mucoid material a week ago and pt. f/u with her surgeon who advised her to come to ER and be treated for this with Iv antibiotics and pt. is now NPO and as per nurse is waiting to get picc line and will be started on TPN as per surgeon recommendation. Pt. denies any fever or chills either at home or here and denies any abdominal pain. also as per pt's daughter she has been tolerating both zosyn and augmentin without any problems and hence No PCN allergy. Review of Systems - Review of Systems Review of Systems: ROS- denies any fever or chills, denies any REYNOLDS, denies any cough, denies any sob, denies any chest pain, denies any abd. pain, + nausea for couple days but no vomiting, yellow mucoid fluid discharge from the surgical site for 1 week, no erythema around the site, no greenish discharge, no dysurea Past Patient History - Past Medical History & Family History Past Medical History?: Yes - Past Social History Smoking Status: Never Smoked Alcohol: None Drugs: Denies Home Situation {Lives}: With Family - CARDIAC Hx Hypercholesterolemia: Yes Hx Hypertension: Yes - PULMONARY Hx Respiratory Disorders: No - NEUROLOGICAL Hx Neurological Disorder: No - HEENT Hx HEENT Problems: No - RENAL Hx Chronic Kidney Disease: No - ENDOCRINE/METABOLIC Hx Endocrine Disorders: No - HEMATOLOGICAL/ONCOLOGICAL Hx Blood Disorders: No - INTEGUMENTARY Hx Dermatological Problems: No - MUSCULOSKELETAL/RHEUMATOLOGICAL Hx Falls: No - GASTROINTESTINAL Hx Gastrointestinal Disorders: No - GENITOURINARY/GYNECOLOGICAL Hx Genitourinary Disorders: No - PSYCHIATRIC Hx Substance Use: No - SURGICAL HISTORY Hx Appendectomy: Yes - ANESTHESIA Hx Anesthesia: Yes Hx Anesthesia Reactions: No Hx Malignant Hyperthermia: No Meds Allergies/Adverse Reactions: Allergies Allergy/AdvReac Type Severity Reaction Status Date / Time Penicillins Allergy RASH Verified 12/21/17 20:13 - Medications Medications: Current Medications Lactated Ringer's (Lactated Ringer's) 1,000 mls @ 100 mls/hr IV .Q10H [facility] BEDS AT [facility] Last Admin: 12/23/17 03:56 Dose: Not Given Piperacillin Sod/Tazobactam (Sod 3.375 gm/ Sodium Chloride) 100 mls @ 100 mls/ hr IVPB Q6 [facility]S [facility]CLUDE 234 BEDS AT THE [facility] PRN Reason: Protocol Last Admin: 12/23/17 04:09 Dose: 100 mls/hr Metronidazole (Flagyl 500mg/100ml Ns) 100 mls @ 100 mls/hr IVPB Q8 COUNTS INCLUDE 234 BEDS AT THE [facility] PRN Reason: Protocol Last Admin: 12/23/17 09:30 Dose: 100 mls/hr Multivitamins/Vitamin C 10 ml/Thiamine HCl 100 mg/ Folic Acid 1 mg/ Dextrose/ Sodium Chloride 1,011.2 mls @ 30 mls/hr IV .Q24H ONE Stop: 12/23/17 11:01 Last Admin: 12/22/17 11:53 Dose: 30 mls/hr Dextrose/Sodium Chloride (Dextrose 5%/0.45% Ns 1000 Ml) 1,000 mls @ 80 mls/hr IV .[id number] COUNTS INCLUDE 234 BEDS AT THE [facility] Stop: 12/23/17 11:03 Last Admin: 12/22/17 23:45 Dose: Not Given Insulin Human Regular (Humulin R) 0 units SC ACCU-CHECK ALFREDO PRN Reason: Protocol Last Admin: 12/23/17 09:06 Dose: Not Given Physical Exam - Constitutional Appears: Non-toxic, No Acute Distress - Head Exam Head Exam: ATRAUMATIC - Eye Exam Eye Exam: EOMI, PERRL - ENT Exam ENT Exam: Normal Oropharynx - Neck Exam Neck exam: Positive for: Full Rom - Respiratory Exam Respiratory Exam: Clear to Auscultation Bilateral, NORMAL BREATHING PATTERN - Cardiovascular Exam Cardiovascular Exam: RRR, +S1, +S2 - GI/Abdominal Exam GI & Abdominal Exam: Normal Bowel Sounds, Soft Additional comments: has a bag over the small surgical site where she is draining yellow liquid, no surrounding erythema, no pus no distention no guarding, no rebound - Extremities Exam Extremities exam: Positive for: normal inspection - Neurological Exam Neurological exam: Alert, Oriented x3 Results - Vital Signs Recent Vital Signs: Last Vital Signs Temp 98.1 F 12/23/17 07:30 Pulse 78 12/23/17 07:30 Resp 18 12/23/17 07:30 BP 132/76 12/23/17 07:30 Pulse Ox 98 12/23/17 07:30 - Labs Result Diagrams: 12/23/17 05:50 12/23/17 05:50 Labs: Laboratory Results - last 24 hr 12/22/17 12/22/17 12/22/17 10:30 17:28 19:24 WBC RBC Hgb Hct MCV MCH MCHC RDW Plt Count MPV Neut % (Auto) Lymph % (Auto) [place] % (Auto) Eos % (Auto) Baso % (Auto) Neut # (Auto) Lymph # (Auto) [place] # (Auto) Eos # (Auto) Baso # (Auto) Sodium Potassium Chloride Carbon Dioxide Anion Gap BUN Creatinine Est GFR ( Amer) Est GFR (Non-Af Amer) POC Glucose (mg/dL) 99 98 Random Glucose Calcium Phosphorus 4.1 Magnesium 1.8 Triglycerides 77 D Cholesterol 123 LDL Cholesterol Direct 64 HDL Cholesterol 36 Blood Type Antibody Screen Crossmatch BBK History Checked 12/22/17 12/22/17 12/23/17 19:30 23:21 05:50 WBC 5.7 RBC 2.43 L Hgb 7.7 L Hct 23.4 L MCV 96.4 MCH 31.6 H MCHC 32.8 L RDW 13.2 Plt Count 224 MPV 7.1 L Neut % (Auto) 73.1 Lymph % (Auto) 10.4 L [place] % (Auto) 13.8 H Eos % (Auto) 2.2 Baso % (Auto) 0.5 Neut # (Auto) 4.1 Lymph # (Auto) 0.6 L [place] # (Auto) 0.8 Eos # (Auto) 0.1 Baso # (Auto) 0.0 Sodium Potassium Chloride Carbon Dioxide Anion Gap BUN Creatinine Est GFR ( Amer) Est GFR (Non-Af Amer) POC Glucose (mg/dL) 133 H Random Glucose Calcium Phosphorus Magnesium Triglycerides Cholesterol LDL Cholesterol Direct HDL Cholesterol Blood Type O POSITIVE Antibody Screen Negative Crossmatch See Detail BBK History Checked Patient has bt 12/23/17 12/23/17 05:50 07:16 WBC RBC Hgb Hct MCV MCH MCHC RDW Plt Count MPV Neut % (Auto) Lymph % (Auto) [place] % (Auto) Eos % (Auto) Baso % (Auto) Neut # (Auto) Lymph # (Auto) [place] # (Auto) Eos # (Auto) Baso # (Auto) Sodium 142 Potassium 3.7 Chloride 107 Carbon Dioxide 25 Anion Gap 14 BUN 16 Creatinine 1.9 H Est GFR ( Amer) 30 Est GFR (Non-Af Amer) 25 POC Glucose (mg/dL) 117 H Random Glucose 114 H Calcium 8.3 L Phosphorus Magnesium Triglycerides Cholesterol LDL Cholesterol Direct HDL Cholesterol Blood Type Antibody Screen Crossmatch BBK History Checked Laboratory Results - last 72 hr 12/21/17 12/21/17 12/21/17 18:15 18:15 18:15 WBC 5.6 RBC 2.49 L Hgb 8.1 L Hct 24.0 L MCV 96.2 MCH 32.3 H MCHC 33.6 RDW 13.0 Plt Count 262 MPV 7.8 Neut % (Auto) 64.8 Lymph % (Auto) 14.9 L [place] % (Auto) 18.2 H Eos % (Auto) 1.5 Baso % (Auto) 0.6 Neut # (Auto) 3.7 Lymph # (Auto) 0.8 L [place] # (Auto) 1.0 H Eos # (Auto) 0.1 Baso # (Auto) 0.0 PT 11.7 INR 1.1 APTT 27.6 Sodium 140 Potassium 3.8 Chloride 103 Carbon Dioxide 25 Anion Gap 16 BUN 24 H Creatinine 1.8 H Est GFR ( Amer) 32 Est GFR (Non-Af Amer) 27 POC Glucose (mg/dL) Random Glucose 131 H Calcium 8.5 Phosphorus Magnesium Total Bilirubin 0.5 AST 30 ALT 16 Alkaline Phosphatase 59 Total Protein 6.8 Albumin 3.3 L Globulin 3.5 Albumin/Globulin Ratio 0.9 L Triglycerides Cholesterol LDL Cholesterol Direct HDL Cholesterol Blood Type Antibody Screen Crossmatch BBK History Checked 12/22/17 12/22/17 12/22/17 05:30 05:30 10:14 WBC 6.0 RBC 2.43 L Hgb 7.7 L Hct 23.3 L MCV 96.0 MCH 31.6 H MCHC 33.0 RDW 13.0 Plt Count 219 MPV 7.2 Neut % (Auto) 69.5 Lymph % (Auto) 12.5 L [place] % (Auto) 16.0 H Eos % (Auto) 1.5 Baso % (Auto) 0.5 Neut # (Auto) 4.2 Lymph # (Auto) 0.8 L [place] # (Auto) 1.0 H Eos # (Auto) 0.1 Baso # (Auto) 0.0 PT INR APTT Sodium 141 Potassium 3.8 Chloride 106 Carbon Dioxide 22 Anion Gap 17 BUN 20 H Creatinine 1.9 H Est GFR ( Amer) 30 Est GFR (Non-Af Amer) 25 POC Glucose (mg/dL) 87 Random Glucose 96 Calcium 8.5 Phosphorus Magnesium Total Bilirubin 0.3 AST 18 ALT 24 Alkaline Phosphatase 61 Total Protein 5.9 L Albumin 2.7 L Globulin 3.2 Albumin/Globulin Ratio 0.8 L Triglycerides Cholesterol LDL Cholesterol Direct HDL Cholesterol Blood Type Antibody Screen Crossmatch BBK History Checked 12/22/1718 12/22/17 10:30 17:28 19:24 WBC RBC Hgb Hct MCV MCH MCHC RDW Plt Count MPV Neut % (Auto) Lymph % (Auto) [place] % (Auto) Eos % (Auto) Baso % (Auto) Neut # (Auto) Lymph # (Auto) [place] # (Auto) Eos # (Auto) Baso # (Auto) PT INR APTT Sodium Potassium Chloride Carbon Dioxide Anion Gap BUN Creatinine Est GFR ( Amer) Est GFR (Non-Af Amer) POC Glucose (mg/dL) 99 98 Random Glucose Calcium Phosphorus 4.1 Magnesium 1.8 Total Bilirubin AST ALT Alkaline Phosphatase Total Protein Albumin Globulin Albumin/Globulin Ratio Triglycerides 77 D Cholesterol 123 LDL Cholesterol Direct 64 HDL Cholesterol 36 Blood Type Antibody Screen Crossmatch BBK History Checked 12/22/1718 12/23/17 19:30 23:21 05:50 WBC 5.7 RBC 2.43 L Hgb 7.7 L Hct 23.4 L MCV 96.4 MCH 31.6 H MCHC 32.8 L RDW 13.2 Plt Count 224 MPV 7.1 L Neut % (Auto) 73.1 Lymph % (Auto) 10.4 L [place] % (Auto) 13.8 H Eos % (Auto) 2.2 Baso % (Auto) 0.5 Neut # (Auto) 4.1 Lymph # (Auto) 0.6 L [place] # (Auto) 0.8 Eos # (Auto) 0.1 Baso # (Auto) 0.0 PT INR APTT Sodium Potassium Chloride Carbon Dioxide Anion Gap BUN Creatinine Est GFR ( Amer) Est GFR (Non-Af Amer) POC Glucose (mg/dL) 133 H Random Glucose Calcium Phosphorus Magnesium Total Bilirubin AST ALT Alkaline Phosphatase Total Protein Albumin Globulin Albumin/Globulin Ratio Triglycerides Cholesterol LDL Cholesterol Direct HDL Cholesterol Blood Type O POSITIVE Antibody Screen Negative Crossmatch See Detail BBK History Checked Patient has bt 12/23/17 12/23/17 05:50 07:16 WBC RBC Hgb Hct MCV MCH MCHC RDW Plt Count MPV Neut % (Auto) Lymph % (Auto) [place] % (Auto) Eos % (Auto) Baso % (Auto) Neut # (Auto) Lymph # (Auto) [place] # (Auto) Eos # (Auto) Baso # (Auto) PT INR APTT Sodium 142 Potassium 3.7 Chloride 107 Carbon Dioxide 25 Anion Gap 14 BUN 16 Creatinine 1.9 H Est GFR ( Amer) 30 Est GFR (Non-Af Amer) 25 POC Glucose (mg/dL) 117 H Random Glucose 114 H Calcium 8.3 L Phosphorus Magnesium Total Bilirubin AST ALT Alkaline Phosphatase Total Protein Albumin Globulin Albumin/Globulin Ratio Triglycerides Cholesterol LDL Cholesterol Direct HDL Cholesterol Blood Type Antibody Screen Crossmatch BBK History Checked Microbiology 12/21/17 23:50 Drainage Gram Stain - Preliminary 12/21/17 23:50 Drainage Wound Culture - Preliminary Gram Negative Tu 12/21/17 18:15 Blood-Venous Blood Culture - Preliminary NO GROWTH AFTER 24 HOURS Accession No. : [id number] Patient Name / ID : DREA TRACY / [id number] Exam Date : 12/21/2017 21:13:10 ( Approved ) Study Comment : Sex / Age : F / 87Y Creator : RAJEEV FUCHS Dictator : Project Controls Specialist : Shop Lead : RAJEEV FUCHS Approver2 : Report Date : 12/21/2017 22:20:00 My Comment : [facility] Division of Radiology [address] [place] [address] Tel. no. Patient Name: DEMARCUS SHEPARD Pt. Address: [address] [place] [address]. Rec #: [id number] [place] [address]: Domingo MONREAL,Susi Pt CELL Order Location: [facility] : 1930 Female Age: 87 Order #: [id number] Reason for exam: infected mesh CT Scan ABD PELVIS PO CONTRAST ONLY Exam Date: 12/21/17 This imaging exam was performed at [facility] (Former[facility]3] EXAM: CT Abdomen and Pelvis Without Intravenous Contrast CLINICAL HISTORY: 87 years old, female; Pain; Abdominal pain; Generalized; Prior surgery; Surgery date: <1 month; Surgery type: Cholecystectomy nov 25 2017. Iatronic enterotomy nov 27 2017; Patient HX: Infection surgical site. HTN ckd; Additional info: Infected mesh TECHNIQUE: Axial computed tomography images of the abdomen and pelvis without intravenous contrast. All CT scans at this facility use one or more dose reduction techniques, viz.: automated exposure control; ma/kV adjustment per patient size (including targeted exams where dose is matched to indication; i.e. head); or iterative reconstruction technique. Coronal and sagittal reformatted images were created and reviewed. COMPARISON: CT - ABD PELVIS PO IV CONTRAST 2017-11-25 17:14 FINDINGS: Lower thorax: Small hiatal hernia. ABDOMEN: Liver: Hepatic steatosis. Gallbladder and bile ducts: Cholecystectomy. No ductal dilation. Pancreas: Unremarkable. No ductal dilation. Spleen: Unremarkable. No splenomegaly. Adrenals: Unremarkable. No mass. Kidneys and ureters: Unremarkable. No obstructing stones. No hydronephrosis. Stomach and bowel: Stomach is unremarkable. No small bowel obstruction. Sigmoid diverticulosis. Appendix: No findings to suggest acute appendicitis. PELVIS: Bladder: Unremarkable. No stones. Reproductive: Unremarkable as visualized. ABDOMEN and PELVIS: Intraperitoneal space: Stranding of the mesenteric fat.No free air. No significant fluid collection. Bones/joints: Diffuse spinal degenerative changes. No acute fracture. No dislocation. Soft tissues: Midline abdominal wall wound. Enterocutaneous fistula with subcutaneous fluid collection deep to abdominal wall wound. Series 2 image #63. This contains oral contrast. Vasculature: Atherosclerotic vascular disease. No abdominal aortic aneurysm. Lymph nodes: Unremarkable. No enlarged lymph nodes. IMPRESSION: 1. Enterocutaneous fistula with oral contrast collection deep to anterior abdominal wall wound. 2. Remainder of findings as above. Dictated By: Rajeev Fuchs MD Dictated Date/Time: 12/21/172219 Signed By: Rajeev Fuchs MD Date Signed: 2219 Transcribed By: YOLANDA Transcribe Date/Time : 12/21/172219 AKIRA/TON Assessment & Plan (1) Enterocutaneous fistula Status: Acute (2) Postoperative wound infection Status: Acute (3) S/P laparoscopic cholecystectomy Status: Acute - Assessment and Plan (Free Text) Assessment: A/P- 87 year old female with HTN s/p recent lap cholecystectomy and Iatrogenic enterotomy 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 pt. is not septic. she is afebrile has normal wbc count fluid cx draing from the enterocutaneous fistula- GNR blood cx- neg x 1 plan- await ID and sensitivity of the GNR. for now agree with IV zosyn and metronidazole pending ID and sens of the GNR. day #2. fistula output to be monitored by the surgical team . If TPN is to be started would advise short course as it may at times cause complications such as infections from line sepsis . All above d/w patient and her daughter and the hospitalist . Thank you for allowing met o take part in the care of this patient.
[2017-12-23] MEDS ORDERED: Lidocaine 1% Inj (20ml) ONE (14:35)
--- NOTE | 2017-12-23 14:56 | PCM.SURG1 ---
Surgeon's Initial Post Op Note - Surgeon's Notes Surgeon: Demetrius Lilly MD Tenant Coordinator: None Type of Anesthesia: Local Pre-Operative Diagnosis: enterocutaneous fistula Operative Findings: patent right basilic vein. catheter length: 35 cm. catheter tip: cavoatrial junction Post-Operative Diagnosis: same Operation Performed: RUE PICC insertion Specimen/Specimens Removed: n/a Estimated Blood Loss: EBL {In ML}: 0 Date of Surgery/Procedure: 12/23/17 Time of Surgery/Procedure: 14:50
--- NOTE | 2017-12-23 16:10 | CP.PCM.PN ---
Subjective - Date & Time of Evaluation Date of Evaluation: 12/23/17 Time of Evaluation: 10:30 - Subjective Subjective: Patient seen and examined bedside.Very pleasant female patient lying in bed in NAD , no abdominal pain or distress, feeling hungry.With some mild nausea at times. Hemodynamically stable, afebrile No acute issues overnight midline enterofistula with colostomy bag in place and some greenish output ' Objective - Vital Signs/Intake and Output Vital Signs (last 24 hours): Temp Pulse Resp BP Pulse Ox 97.8 F 96 H 18 129/79 98 12/23/17 15:06 12/23/17 15:06 12/23/17 15:06 12/23/17 15:06 12/23/17 15:06 - Medications Medications: Current Medications Lactated Ringer's (Lactated Ringer's) 1,000 mls @ 100 mls/hr IV .Q10H [facility] Last Admin: 12/23/17 03:56 Dose: Not Given Piperacillin Sod/Tazobactam (Sod 3.375 gm/ Sodium Chloride) 100 mls @ 100 mls/ hr IVPB Q6 [facility] PRN Reason: Protocol Last Admin: 12/23/17 04:09 Dose: 100 mls/hr Metronidazole (Flagyl 500mg/100ml Ns) 100 mls @ 100 mls/hr IVPB Q8 [facility] PRN Reason: Protocol Last Admin: 12/23/17 09:30 Dose: 100 mls/hr Insulin Human Regular (Humulin R) 0 units SC ACCU-CHECK [facility] PRN Reason: Protocol Last Admin: 12/23/17 09:06 Dose: Not Given - Labs Labs: 12/23/17 05:50 12/23/17 05:50 PT 11.7 Seconds (9.8-13.1) 12/21/17 18:15 INR 1.1 (0.9-1.2) 12/21/17 18:15 APTT 27.6 Seconds (25.6-37.1) 12/21/17 18:15 - Constitutional Appears: Non-toxic, No Acute Distress, Other (sated age ) - Head Exam Head Exam: ATRAUMATIC, NORMAL INSPECTION, NORMOCEPHALIC - Eye Exam Eye Exam: EOMI, Normal appearance, PERRL Pupil Exam: NORMAL ACCOMODATION - ENT Exam ENT Exam: Mucous Membranes Dry, Normal Exam - Neck Exam Neck Exam: Full ROM, Normal Inspection - Respiratory Exam Respiratory Exam: Clear to Ausculation Bilateral, NORMAL BREATHING PATTERN. absent: Rales, Rhonchi, Wheezes - Cardiovascular Exam Cardiovascular Exam: REGULAR RHYTHM, RRR, +S1, +S2. absent: JVD - GI/Abdominal Exam GI & Abdominal Exam: Soft, Normal Bowel Sounds. absent: Distended, Guarding, Mass, Rebound Additional comments: midline enterofistula with colostomy bag and greenish fluid output - Rectal Exam Rectal Exam: Deferred - Extremities Exam Extremities Exam: Full ROM, Normal Capillary Refill, Normal Inspection. absent : Calf Tenderness, Pedal Edema - Back Exam Back Exam: NORMAL INSPECTION - Neurological Exam Neurological Exam: Alert, Awake, CN II-XII Intact, Oriented x3 - Psychiatric Exam Psychiatric exam: Normal Affect, Normal Mood - Skin Skin Exam: Dry, Pallor, Warm Assessment and Plan - Assessment and Plan (Free Text) Assessment: 87 yo female with history of HTN and Arthritis presented with abdominal pain on 11/25/2017 and was found to have cholelithiasis and cholecystitis. Patient had laparoscopic cholecystectomy and iatrogenic enterotomy. Patient was advised to go to [facility] or TCU for therapy and continuation of IV antibiotics but the family refused.She was treatecd with IV zosyn during hospital stay and was sent home with PO Augmentin on 12/04/2016. At home, her surgical wound started draining some mucoid greenish material and she was advised to come in for evaluation by her surgeon CT abdomen showed 1. Enterocutaneous fistula with oral contrast collection deep to anterior abdominal wall wound. Patient was admitted , started on IV Zosyn and Flagyl , kept NPO and surgery and ID consulted At present doing well, feeling slightly nauseated , NPO. with fistula output For PICC line placement today to start TPN 1. Enterocutaneous Fistula post laparascopic cholecystectomy patient is afebrile with no WBC and no peritoneal signs Continue IV Zosyn and Flagyl Colostomy bag to midline fistula placed for output monitoring Will keep NPO as discussed with surgery PICC line placement today to start TPN. dietitian consulted about TPN recommendations. Will start 25 % dextrose , 5% amino acids 2 30 ml/hr 750 ml in 24 hours with 250 ml lipid 20% MWF will monitor electrolytes closely Continue D5 NS Surgery and ID following 2. Acute blood loss anemia Hgb 7.4 today patient does not want blood transfusion and if necessary her family members would like to dobnate blood Will give Venofer IV x 3 doses 3. HTN BP stable Toprol 50 mg PO monitor vitals 4. Hyperlipidemia Atorvastatin 10 mg PO 5. Acute Renal Insufficiency probably secondary to volume depletion was able to recover before with hydration continue IVF 6. DVT Prophylaxis Venodyne boots while in bed Start Lovenox renal dose since patient is not ambulating a lot Monitor H& H closely
[2017-12-23] MEDS ORDERED: Morphine 4 MG/ML VIAL IVP PRN (23:45)
[2017-12-24] MEDS: metroNIDAZOLE 500mg/100ml NS 100 ML IVPB SCH ×3 (00:01→16:50)
[2017-12-24] MEDS: Piperacillin/Tazobact 3.375 GM in Sodium Chloride 0.9% 100 ML IVPB SCH ×4 (04:08→21:54)
[2017-12-24 06:49] LABS: HEMOGLOBIN 8.4 g/dL (12.0-16.0); MEAN CELL VOLUME 97.2 fl (81.0-99.0); MEAN CORPUSCULAR HEMOGLOBIN 31.4 pg (27.0-31.0); MEAN CORPUSCULAR HGB CONC 32.3 g/dL (33.0-37.0); RBC 2.68 Mil/uL (3.80-5.20); RED CELL DISTRIBUTION WIDTH 13.2 % (11.5-14.5); WHITE BLOOD COUNT 7.1 K/uL (4.8-10.8)
[2017-12-24 06:55] LABS: MAGNESIUM 1.6 MG/DL (1.6-2.3)
[2017-12-24] MEDS: Insulin Regular 100 units/ml SC SCH ×4 (07:30→23:05)
[2017-12-24 07:46] LABS: INR 1.2 (0.9-1.2); PROTHROMBIN TIME 13.8 Seconds (9.8-13.1)
[2017-12-24] MEDS ORDERED: Morphine 4 MG/ML VIAL IVP PRN (08:00)
--- NOTE | 2017-12-24 08:01 | CP.PCM.PN ---
<BernadineCarlota - Last Filed: 12/24/17 07:58> Subjective - Date & Time of Evaluation Date of Evaluation: 12/24/17 Time of Evaluation: 07:35 - Subjective Subjective: General Surgery Dr. Lawler Pt S&E @bedside. NAEO. pt denies abd pain, N/V, F/C. fistula output 50cc overnight. pt is NPO. Objective - Vital Signs/Intake and Output Vital Signs (last 24 hours): Temp Pulse Resp BP Pulse Ox 97.5 F L 85 19 134/75 97 12/24/17 00:00 12/24/17 00:00 12/24/17 00:00 12/24/17 00:00 12/24/17 00:00 - Medications Medications: Current Medications Enoxaparin Sodium (Lovenox) 30 mg SC DAILY [facility] PRN Reason: Protocol Lactated Ringer's (Lactated Ringer's) 1,000 mls @ 100 mls/hr IV .Q10H [facility] Last Admin: 12/23/17 23:57 Dose: 100 mls/hr Piperacillin Sod/Tazobactam (Sod 3.375 gm/ Sodium Chloride) 100 mls @ 100 mls/ hr IVPB Q6 [facility] PRN Reason: Protocol Last Admin: 12/24/17 04:08 Dose: 100 mls/hr Metronidazole (Flagyl 500mg/100ml Ns) 100 mls @ 100 mls/hr IVPB Q8 [facility] PRN Reason: Protocol Last Admin: 12/24/17 00:01 Dose: 100 mls/hr Insulin Human Regular (Humulin R) 0 units SC ACCU-CHECK [facility] PRN Reason: Protocol Last Admin: 12/23/17 23:19 Dose: Not Given Morphine Sulfate (Morphine) 1 mg IVP Q4 PRN PRN Reason: Pain, moderate (4-7) Last Admin: 12/23/17 23:48 Dose: 1 mg Morphine Sulfate (Morphine) 2 mg IVP Q4 PRN PRN Reason: Pain, severe (8-10) - Labs Labs: 12/24/17 05:35 12/23/17 05:50 PT 13.8 Seconds (9.8-13.1) H 12/24/17 05:35 INR 1.2 (0.9-1.2) 02/20/18 05:35 APTT 27.6 Seconds (25.6-37.1) 12/21/17 18:15 - Constitutional Appears: Non-toxic, No Acute Distress - Head Exam Head Exam: NORMAL INSPECTION - Eye Exam Eye Exam: Normal appearance - ENT Exam ENT Exam: Mucous Membranes Moist - Respiratory Exam Respiratory Exam: NORMAL BREATHING PATTERN. absent: Accessory Muscle Use, Respiratory Distress - GI/Abdominal Exam GI & Abdominal Exam: Soft. 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 Bucky Colindres DO PGY2 <Michael Lawler - Last Filed: 12/24/17 11:00> Subjective - Date & Time of Evaluation Time of Evaluation: 10:10 - Subjective Subjective: Patient was seen and examined at the bedside. Agree with resident's note above. Objective - Vital Signs/Intake and Output Vital Signs (last 24 hours): Temp Pulse Resp BP Pulse Ox 97.8 F 85 20 158/78 H 96 12/24/17 08:44 12/24/17 08:44 12/24/17 08:44 12/24/17 08:44 12/24/17 08:44 - Medications Medications: Current Medications Enoxaparin Sodium (Lovenox) 30 mg SC DAILY [facility] PRN Reason: Protocol Last Admin: 12/24/17 09:21 Dose: 30 mg Lactated Ringer's (Lactated Ringer's) 1,000 mls @ 100 mls/hr IV .Q10H [facility] Last Admin: 12/23/17 23:57 Dose: 100 mls/hr Piperacillin Sod/Tazobactam (Sod 3.375 gm/ Sodium Chloride) 100 mls @ 100 mls/ hr IVPB Q6 [facility] PRN Reason: Protocol Last Admin: 12/24/17 09:24 Dose: 100 mls/hr Metronidazole (Flagyl 500mg/100ml Ns) 100 mls @ 100 mls/hr IVPB Q8 [facility] PRN Reason: Protocol Last Admin: 12/24/17 09:20 Dose: 100 mls/hr Amino Acids (Clinimix 5%-25%) 1,000 mls @ 30 mls/hr IV .Q24H [facility] Stop: 12/25/17 10:14 Insulin Human Regular (Humulin R) 0 units SC ACCU-CHECK [facility] PRN Reason: Protocol Last Admin: 12/24/17 07:30 Dose: Not Given Morphine Sulfate (Morphine) 1 mg IVP Q4 PRN PRN Reason: Pain, moderate (4-7) Last Admin: 12/23/17 23:48 Dose: 1 mg Morphine Sulfate (Morphine) 2 mg IVP Q4 PRN PRN Reason: Pain, severe (8-10) - Labs Labs: 12/24/17 05:35 12/23/17 05:50 PT 13.8 Seconds (9.8-13.1) H 12/24/17 05:35 INR 1.2 (0.9-1.2) 12/24/17 05:35 APTT 27.6 Seconds (25.6-37.1) 12/21/17 18:15
[2017-12-24] MEDS: Enoxaparin 30 mg Syringe SC SCH (09:21)
--- NOTE | 2017-12-24 10:06 | VASCULAR ---
PROCEDURE: PERIPHERALLY INSERTED CENTRAL VENOUS CATHETER INSERTION CLINICAL HISTORY: 87-year-old female requiring total parenteral nutrition for enterocutaneous fistula is referred to Interventional Radiology for PICC insertion. COMPARISON: None. PROCEDURE: 1. Focused ultrasound of the right upper extremity vasculature. 2. Ultrasound-guided access. 3. Insertion of peripherally inserted central venous catheter. 4. Fluoroscopic localization of catheter tip. PRE-PROCEDURE FINDINGS: 1. Patent right basilic vein. POST-PROCEDURE FINDINGS: 1. Placement of 4 Tunisian single-lumen PICC. 2. Catheter length: 35 cm. 3. Catheter tip at cavoatrial junction. INTERVENTIONAL RADIOLOGIST: Demetrius Lilly M.D. (the attending was present for the entire procedure) ANESTHESIA: None. MEDICATION: Lidocaine 1% for local subcutaneous analgesia. COMPLICATIONS: None. RADIATION DOSE: Fluoroscopy Time: 9.9 seconds Cumulative Dose: 1.03 mGy PROCEDURE DESCRIPTION AND FINDINGS: The risks, benefits, alternatives and possible complications of the procedure were fully discussed; all questions were answered and informed consent was obtained. The patient was brought into the interventional suite and a pre-procedure 'time-out' was performed. The patient was placed on the fluoroscopy table in the supine position. The right upper extremity was prepped and draped in the usual sterile fashion. Maximum sterile barrier precautions were maintained throughout the entire procedure. Preliminary ultrasound images of the right upper extremity vasculature demonstrate patency of the right basilic vein. Following subcutaneous infiltration of 1% lidocaine for local analgesia, under ultrasound guidance, a 21-gauge needle was advanced into the right basilic vein with real-time visualization of needle entry. The ultrasound images were permanently recorded and submitted to the PACS. A 0.018 guidewire was advanced centrally to the cavoatrial junction. A 4.5 Tunisian peel-away sheath was advanced over the guidewire. After obtaining length measurement, a 4 Tunisian single-lumen PICC was placed with the tip of the catheter at the cavoatrial junction. The total length of the catheter is 35 cm. The hub of the PICC was secured to the skin using a sterile adhesive bandage. The patient tolerated the procedure well without immediate post-procedure complications and was transferred back to the floor in stable condition. IMPRESSION: SUCCESSFUL INSERTION OF RIGHT UPPER EXTREMITY PICC. PICC OK TO USE.
[2017-12-24] MEDS ORDERED: AMINO IV ONE (10:15)
[2017-12-24] MEDS ORDERED: DEXT IV ONE (10:15)
--- NOTE | 2017-12-24 11:47 | CP.PCM.PN ---
Subjective - Date & Time of Evaluation Date of Evaluation: 12/24/17 Time of Evaluation: 09:45 - Subjective Subjective: No fever denies abd pain bilious drainage from abd fistula no CP no SOB Objective - Vital Signs/Intake and Output Vital Signs (last 24 hours): Temp Pulse Resp BP Pulse Ox 97.8 F 85 20 158/78 H 96 12/24/17 08:44 12/24/17 08:44 12/24/17 08:44 12/24/17 08:44 12/24/17 08:44 - Medications Medications: Current Medications Enoxaparin Sodium (Lovenox) 30 mg SC DAILY [facility] PRN Reason: Protocol Last Admin: 12/24/17 09:21 Dose: 30 mg Lactated Ringer's (Lactated Ringer's) 1,000 mls @ 100 mls/hr IV .Q10H [facility] Last Admin: 12/23/17 23:57 Dose: 100 mls/hr Piperacillin Sod/Tazobactam (Sod 3.375 gm/ Sodium Chloride) 100 mls @ 100 mls/ hr IVPB Q6 [facility] PRN Reason: Protocol Last Admin: 12/24/17 09:24 Dose: 100 mls/hr Metronidazole (Flagyl 500mg/100ml Ns) 100 mls @ 100 mls/hr IVPB Q8 [facility] PRN Reason: Protocol Last Admin: 12/24/17 09:20 Dose: 100 mls/hr Amino Acids (Clinimix 5%-25%) 1,000 mls @ 30 mls/hr IV .Q24H [facility] Stop: 12/25/17 10:14 Insulin Human Regular (Humulin R) 0 units SC ACCU-CHECK [facility] PRN Reason: Protocol Last Admin: 12/24/17 07:30 Dose: Not Given Morphine Sulfate (Morphine) 1 mg IVP Q4 PRN PRN Reason: Pain, moderate (4-7) Last Admin: 12/23/17 23:48 Dose: 1 mg Morphine Sulfate (Morphine) 2 mg IVP Q4 PRN PRN Reason: Pain, severe (8-10) - Labs Labs: 12/24/17 05:35 12/23/17 05:50 PT 13.8 Seconds (9.8-13.1) H 12/24/17 05:35 INR 1.2 (0.9-1.2) 12/24/17 05:35 APTT 27.6 Seconds (25.6-37.1) 12/21/17 18:15 - Constitutional Appears: No Acute Distress, Chronically Ill - Head Exam Head Exam: NORMAL INSPECTION, NORMOCEPHALIC - Eye Exam Eye Exam: EOMI, Normal appearance Pupil Exam: NORMAL ACCOMODATION - ENT Exam ENT Exam: Mucous Membranes Dry, Normal External Ear Exam - Neck Exam Neck Exam: Full ROM. absent: Meningismus - Respiratory Exam Respiratory Exam: NORMAL BREATHING PATTERN. absent: Respiratory Distress - Cardiovascular Exam Cardiovascular Exam: REGULAR RHYTHM, +S1, +S2 - GI/Abdominal Exam GI & Abdominal Exam: Soft, Normal Bowel Sounds. absent: Tenderness Additional comments: Colostomy bag placed on abd wall draining fistula - Extremities Exam Extremities Exam: Normal Capillary Refill. absent: Calf Tenderness, Pedal Edema - Back Exam Back Exam: absent: CVA tenderness (L), CVA tenderness (R) - Neurological Exam Neurological Exam: Alert, Oriented x3 - Psychiatric Exam Psychiatric exam: Normal Affect, Normal Mood - Skin Skin Exam: Dry, Normal Color, Warm Assessment and Plan - Assessment and Plan (Free Text) Assessment: 87 yo female with history of HTN and Arthritis presented with abdominal pain on 11/25/2017 and was found to have cholelithiasis and cholecystitis. Patient had laparoscopic cholecystectomy and iatrogenic enterotomy. Patient was advised to go to [facility] or TCU for therapy and continuation of IV antibiotics but the family refused.She was treated with IV zosyn during hospital stay and was sent home with PO Augmentin on 12/04/2016. At home, her surgical wound started draining some mucoid greenish material and she was advised to come in for evaluation by her surgeon CT abdomen showed 1. Enterocutaneous fistula with oral contrast collection deep to anterior abdominal wall wound. Patient was admitted , started on IV Zosyn and Flagyl , kept NPO and surgery and ID consulted Surgery rec conservative mgt - NPO and to start TPN. 1. Enterocutaneous Fistula hx of Enterotomy patient is afebrile with no WBC and no peritoneal signs Continue IV Zosyn and Flagyl Colostomy bag to midline fistula placed for output monitoring Will keep NPO as discussed with surgery PICC line placed, to start TPN today dietitian consulted for TPB rec will monitor electrolytes closely Continue D5 NS Surgery and ID following 2. Acute blood loss anemia Hgb 7.4 patient does not want blood transfusion Venofer IV x 3 doses 3. HTN BP stable monitor vitals 4. Hyperlipidemia hold while NPO 5. Acute Renal Insufficiency probably secondary to volume depletion was able to recover before with hydration continue IVF 6. DVT Prophylaxis Venodyne boots while in bed Start Lovenox renal dose since patient is not ambulating a lot Monitor H& H closely
[2017-12-25] MEDS: metroNIDAZOLE 500mg/100ml NS 100 ML IVPB SCH ×3 (01:54→16:54)
[2017-12-25] MEDS: Piperacillin/Tazobact 3.375 GM in Sodium Chloride 0.9% 100 ML IVPB SCH ×2 (04:58→10:29)
[2017-12-25 06:31] LABS: CALCIUM 8.2 mg/dL (8.4-10.2); MAGNESIUM 1.6 MG/DL (1.6-2.3)
[2017-12-25] MEDS: Insulin Regular 100 units/ml SC SCH ×5 (07:30→22:11)
[2017-12-25 09:02] LABS: BASO % 0.6 % (0.0-2.0); EOS # 0.1 K/uL (0.0-0.7); EOS % 1.2 % (0.0-4.0); HEMOGLOBIN 8.2 g/dL (12.0-16.0); LYMPH # 0.6 K/uL (1.0-4.3); LYMPH % 9.5 % (20.0-40.0); MEAN CELL VOLUME 95.9 fl (81.0-99.0); MEAN CORPUSCULAR HEMOGLOBIN 31.8 pg (27.0-31.0); MEAN CORPUSCULAR HGB CONC 33.1 g/dL (33.0-37.0); MEAN PLATELET VOLUME 7.5 fl (7.2-11.7); MONO # 0.5 K/uL (0.0-0.8); MONO % 8.7 % (0.0-10.0); NEUT # 4.8 K/uL (1.8-7.0); PLATELET COUNT 226 K/uL (130-400); RBC 2.58 Mil/uL (3.80-5.20); RED CELL DISTRIBUTION WIDTH 13.2 % (11.5-14.5)
--- NOTE | 2017-12-25 10:19 | CP.PCM.PN ---
Subjective - Date & Time of Evaluation Date of Evaluation: 12/25/17 Time of Evaluation: 09:30 - Subjective Subjective: Patient was seen and examined at the bedside. Denies any abdominal pain. Objective - Vital Signs/Intake and Output Vital Signs (last 24 hours): Temp Pulse Resp BP Pulse Ox 97.5 F L 86 20 159/82 H 98 12/25/17 07:54 12/25/17 07:54 12/25/17 07:54 12/25/17 07:54 12/25/17 07:54 Intake and Output: 12/25/17 12/25/17 06:59 18:59 Output Total 50 Balance -50 - Medications Medications: Current Medications Enoxaparin Sodium (Lovenox) 30 mg SC DAILY [facility] PRN Reason: Protocol Last Admin: 12/24/17 09:21 Dose: 30 mg Piperacillin Sod/Tazobactam (Sod 3.375 gm/ Sodium Chloride) 100 mls @ 100 mls/ hr IVPB Q6 [facility] PRN Reason: Protocol Last Admin: 12/25/17 04:58 Dose: 100 mls/hr Metronidazole (Flagyl 500mg/100ml Ns) 100 mls @ 100 mls/hr IVPB Q8 [facility] PRN Reason: Protocol Last Admin: 12/25/17 01:54 Dose: 100 mls/hr Potassium Chloride 10 meq/ (Sodium Chloride) 105 mls @ 105 mls/hr IV Q1 [facility] Stop: 12/25/17 12:59 Insulin Human Regular (Humulin R) 0 units SC ACCU-CHECK [facility] PRN Reason: Protocol Last Admin: 12/24/17 23:05 Dose: Not Given Morphine Sulfate (Morphine) 1 mg IVP Q4 PRN PRN Reason: Pain, moderate (4-7) Last Admin: 12/23/17 23:48 Dose: 1 mg Morphine Sulfate (Morphine) 2 mg IVP Q4 PRN PRN Reason: Pain, severe (8-10) - Labs Labs: 12/25/17 08:56 12/25/17 05:30 PT 13.8 Seconds (9.8-13.1) H 12/24/17 05:35 INR 1.2 (0.9-1.2) 12/24/17 05:35 APTT 27.6 Seconds (25.6-37.1) 02/17/18 18:15 - Constitutional Appears: Well, Non-toxic, No Acute Distress - Head Exam Head Exam: ATRAUMATIC, NORMAL INSPECTION, NORMOCEPHALIC - Eye Exam Eye Exam: EOMI, Normal appearance, PERRL Pupil Exam: NORMAL ACCOMODATION, PERRL - ENT Exam ENT Exam: Mucous Membranes Moist, Normal Exam - Neck Exam Neck Exam: Full ROM, Normal Inspection - Respiratory Exam Respiratory Exam: Clear to Ausculation Bilateral, NORMAL BREATHING PATTERN - Cardiovascular Exam Cardiovascular Exam: REGULAR RHYTHM, +S1, +S2 - GI/Abdominal Exam GI & Abdominal Exam: Soft, Normal Bowel Sounds Additional comments: NT, ND, no rebound, no guarding, minimal drainage from the midline wound, ostomy appliance on the wound - Rectal Exam Rectal Exam: Deferred - Extremities Exam Extremities Exam: Full ROM, Normal Inspection - Back Exam Back Exam: NORMAL INSPECTION - Neurological Exam Neurological Exam: Alert, Awake, Oriented x3 - Psychiatric Exam Psychiatric exam: Normal Affect, Normal Mood - Skin Skin Exam: Dry, Intact, Normal Color, Warm Assessment and Plan - Assessment and Plan (Free Text) Assessment: 87 y.o. female with EC fistula Plan: - Keep NPO - IV fluids - Continue TPN - Replace Potassium - Antibiotics as per ID - Out of bed and ambulate - Repeat labs in am - Will follow
[2017-12-25] MEDS: Enoxaparin 30 mg Syringe SC SCH (10:30)
[2017-12-25 10:35] LABS: BANDS 1 % (0-2); EOSINOPHIL 1 % (0-7); LYMPHOCYTE 8 % (20-50); MONOCYTE 8 % (0-10); MYELOCYTE 1 % (0-0); NEUTROPHIL 81 % (42-75); PLATELET ESTIMATE NORMAL (NORMAL); TOTAL CELLS COUNTED 100
[2017-12-25 10:57] LABS: HYPOCHROMIC SLIGHT
--- NOTE | 2017-12-25 11:25 | CP.PCM.PN ---
Subjective - Date & Time of Evaluation Date of Evaluation: 12/25/17 Time of Evaluation: 10:30 - Subjective Subjective: No fever denies abd pain Drainage from Fistula =50ml no no CP no SOB PICC line placed -TPN infusing Objective - Vital Signs/Intake and Output Vital Signs (last 24 hours): Temp Pulse Resp BP Pulse Ox 97.5 F L 86 20 159/82 H 98 12/25/17 07:54 12/25/17 07:54 12/25/17 07:54 12/25/17 07:54 12/25/17 07:54 Intake and Output: 12/25/17 12/25/17 06:59 18:59 Output Total 50 Balance -50 - Medications Medications: Current Medications Enoxaparin Sodium (Lovenox) 30 mg SC DAILY [facility] PRN Reason: Protocol Last Admin: 12/25/17 10:30 Dose: 30 mg Piperacillin Sod/Tazobactam (Sod 3.375 gm/ Sodium Chloride) 100 mls @ 100 mls/ hr IVPB Q6 [facility] PRN Reason: Protocol Last Admin: 12/25/17 10:29 Dose: 100 mls/hr Metronidazole (Flagyl 500mg/100ml Ns) 100 mls @ 100 mls/hr IVPB Q8 [facility] PRN Reason: Protocol Last Admin: 12/25/17 10:28 Dose: 100 mls/hr Potassium Chloride 10 meq/ (Sodium Chloride) 105 mls @ 105 mls/hr IV Q1 [facility] Stop: 12/25/17 12:59 Last Admin: 12/25/17 10:48 Dose: 105 mls/hr Insulin Human Regular (Humulin R) 0 units SC ACCU-CHECK [facility] PRN Reason: Protocol Last Admin: 12/25/17 07:30 Dose: 1 units Morphine Sulfate (Morphine) 1 mg IVP Q4 PRN PRN Reason: Pain, moderate (4-7) Last Admin: 12/23/17 23:48 Dose: 1 mg Morphine Sulfate (Morphine) 2 mg IVP Q4 PRN PRN Reason: Pain, severe (8-10) - Labs Labs: 12/25/17 08:56 12/25/17 05:30 PT 13.8 Seconds (9.8-13.1) H 12/24/17 05:35 INR 1.2 (0.9-1.2) 12/24/17 05:35 APTT 27.6 Seconds (25.6-37.1) 12/21/17 18:15 - Constitutional Appears: No Acute Distress, Chronically Ill - Head Exam Head Exam: NORMAL INSPECTION, NORMOCEPHALIC - Eye Exam Eye Exam: EOMI, Normal appearance Pupil Exam: NORMAL ACCOMODATION - ENT Exam ENT Exam: Mucous Membranes Dry, Normal External Ear Exam - Neck Exam Neck Exam: Full ROM. absent: Meningismus - Respiratory Exam Respiratory Exam: NORMAL BREATHING PATTERN. absent: Respiratory Distress - Cardiovascular Exam Cardiovascular Exam: REGULAR RHYTHM, +S1, +S2 - GI/Abdominal Exam GI & Abdominal Exam: Soft, Normal Bowel Sounds. absent: Tenderness Additional comments: Colostomy bag placed on abd wall draining fistula - Extremities Exam Extremities Exam: Normal Capillary Refill. absent: Calf Tenderness, Pedal Edema - Back Exam Back Exam: absent: CVA tenderness (L), CVA tenderness (R) - Neurological Exam Neurological Exam: Alert, Oriented x3 - Psychiatric Exam Psychiatric exam: Normal Affect, Normal Mood - Skin Skin Exam: Dry, Normal Color, Warm Assessment and Plan - Assessment and Plan (Free Text) Assessment: 87 yo female with history of HTN and Arthritis presented with abdominal pain on 11/25/2017 and was found to have cholelithiasis and cholecystitis. Patient had laparoscopic cholecystectomy and iatrogenic enterotomy. Patient was advised to go to [facility] or TCU for therapy and continuation of IV antibiotics but the family refused.She was treated with IV zosyn during hospital stay and was sent home with PO Augmentin on 12/04/2016. 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 Patient was admitted , started on IV Zosyn and Flagyl , kept NPO and surgery and ID consulted Surgery rec conservative mgt - NPO and to start TPN. 12/25: Wound C/S : Serratia ( intermediate sensitivity to Zosyn) Abx changed to Meropenem 1. Enterocutaneous Fistula hx of Enterotomy Wound c/s : Serratia patient is afebrile with no WBC and no peritoneal signs Discussed with Dr Doshi - change IV abx to IV Meropenem ( Zosyn Intermediate sensitivity )Continue IV Flagyl Colostomy bag to midline fistula placed for output monitoring Will keep NPO as discussed with surgery PICC line placed, TPN started dietitian consulted will monitor electrolytes closely Surgery and ID following Plan to d/c pt on Home TPN and iV abx once draiange is less from fistula 2. Acute blood loss anemia Hgb 7.4 patient does not want blood transfusion Venofer IV x 3 doses Hgb went up to 8.2 3. HTN BP stable monitor vitals 4. Hyperlipidemia hold while NPO 5. Acute Renal Insufficiency probably secondary to volume depletion was able to recover before with hydration improved w/ IVF hydration Crea 1.4 today from 1.9 6. Hypokalemia - KCl runs - incorporate KCl into TPN DVT Prophylaxis Lovenox
[2017-12-25] MEDS ORDERED: DEXT IV ONE (13:30)
[2017-12-25] MEDS ORDERED: AMINO IV ONE (13:30)
[2017-12-25] MEDS: Meropenem 1 GM in Sodium Chloride 0.9% 100 ML IVPB SCH ×2 (14:12→21:50)
[2017-12-26] MEDS: metroNIDAZOLE 500mg/100ml NS 100 ML IVPB SCH ×3 (01:22→17:11)
[2017-12-26] MEDS: Insulin Regular 100 units/ml SC SCH ×4 (07:00→23:30)
[2017-12-26 07:45] LABS: CALCIUM 8.2 mg/dL (8.4-10.2)
--- NOTE | 2017-12-26 08:37 | CP.PCM.PN ---
<Susan Booth - Last Filed: 12/26/17 08:38> Subjective - Date & Time of Evaluation Date of Evaluation: 12/26/17 Time of Evaluation: 08:35 - Subjective Subjective: General Surgery Progress Note - Dr. Lawler Pt seen and examined at bedside. DAISHA. Denies abd pain, F/C/N/V. Fistula output 25cc overnight. Pt remains NPO and is receiving TPN. Objective - Vital Signs/Intake and Output Vital Signs (last 24 hours): Temp Pulse Resp BP Pulse Ox 98.2 F 94 H 18 142/76 98 12/26/17 00:17 12/26/17 00:17 12/26/17 00:17 12/26/17 00:17 12/26/17 00:17 Intake and Output: 12/26/17 12/26/17 06:59 18:59 Output Total 25 Balance -25 - Medications Medications: Current Medications Enoxaparin Sodium (Lovenox) 30 mg SC DAILY ALFREDO PRN Reason: Protocol Last Admin: 12/25/17 10:30 Dose: 30 mg Metronidazole (Flagyl 500mg/100ml Ns) 100 mls @ 100 mls/hr IVPB Q8 ALFREDO PRN Reason: Protocol Last Admin: 12/26/17 01:22 Dose: 100 mls/hr Meropenem 1 gm/ Sodium (Chloride) 100 mls @ 100 mls/hr IVPB Q12 ALFREDO PRN Reason: Protocol Last Admin: 12/25/17 21:50 Dose: 100 mls/hr Amino Acids (Clinimix 5%-25%) 1,000 mls @ 30 mls/hr IV .Q24H ONE Stop: 12/26/17 13:29 Last Admin: 12/26/17 07:38 Dose: 30 mls/hr Insulin Human Regular (Humulin R) 0 units SC ACCU-CHECK ALFREDO PRN Reason: Protocol Last Admin: 12/25/17 22:11 Dose: Not Given Morphine Sulfate (Morphine) 1 mg IVP Q4 PRN PRN Reason: Pain, moderate (4-7) Last Admin: 12/23/17 23:48 Dose: 1 mg Morphine Sulfate (Morphine) 2 mg IVP Q4 PRN PRN Reason: Pain, severe (8-10) - Labs Labs: 12/25/17 08:56 12/26/17 06:00 PT 13.8 Seconds (9.8-13.1) H 12/24/17 05:35 INR 1.2 (0.9-1.2) 12/24/17 05:35 APTT 27.6 Seconds (25.6-37.1) 12/21/17 18:15 - Constitutional Appears: Well, Non-toxic, No Acute Distress - GI/Abdominal Exam GI & Abdominal Exam: Soft. 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 Lawler <Michael Lawler - Last Filed: 12/26/17 10:13> Subjective - Date & Time of Evaluation Time of Evaluation: 09:30 - Subjective Subjective: Patient was seen and examined at the bedside. Agree with resident's note above. Objective - Vital Signs/Intake and Output Vital Signs (last 24 hours): Temp Pulse Resp BP Pulse Ox 97.6 F 56 L 20 155/81 H 98 12/26/17 08:37 12/26/17 08:37 12/26/17 08:37 12/26/17 08:37 12/26/17 08:37 Intake and Output: 12/26/17 12/26/17 06:59 18:59 Output Total 25 Balance -25 - Medications Medications: Current Medications Enoxaparin Sodium (Lovenox) 30 mg SC DAILY ALFREDO PRN Reason: Protocol Last Admin: 12/25/17 10:30 Dose: 30 mg Metronidazole (Flagyl 500mg/100ml Ns) 100 mls @ 100 mls/hr IVPB Q8 ALFREDO PRN Reason: Protocol Last Admin: 12/26/17 09:42 Dose: 100 mls/hr Meropenem 1 gm/ Sodium (Chloride) 100 mls @ 100 mls/hr IVPB Q12 ALFREDO PRN Reason: Protocol Last Admin: 12/26/17 09:42 Dose: 100 mls/hr Amino Acids (Clinimix 5%-25%) 1,000 mls @ 30 mls/hr IV .Q24H ONE Stop: 12/26/17 13:29 Last Admin: 12/26/17 07:38 Dose: 30 mls/hr Potassium Chloride 10 meq/ (Sodium Chloride) 55 mls @ 55 mls/hr IV Q1 ALFREDO Stop: 12/26/17 12:59 Insulin Human Regular (Humulin R) 0 units SC ACCU-CHECK ALFREDO PRN Reason: Protocol Last Admin: 12/25/17 22:11 Dose: Not Given Morphine Sulfate (Morphine) 1 mg IVP Q4 PRN PRN Reason: Pain, moderate (4-7) Last Admin: 12/23/17 23:48 Dose: 1 mg Morphine Sulfate (Morphine) 2 mg IVP Q4 PRN PRN Reason: Pain, severe (8-10) - Labs Labs: 12/25/17 08:56 12/26/17 06:00 PT 13.8 Seconds (9.8-13.1) H 12/24/17 05:35 INR 1.2 (0.9-1.2) 12/24/17 05:35 APTT 27.6 Seconds (25.6-37.1) 12/21/17 18:15 Assessment and Plan - Assessment and Plan (Free Text) Plan: - Replace Potassium - Repeat labs in am - Will follow
[2017-12-26] MEDS ORDERED: Potassium CL 10 MEQ/50 ML 50 ML IVPB SCH (09:00)
[2017-12-26] MEDS: Meropenem 1 GM in Sodium Chloride 0.9% 100 ML IVPB SCH ×2 (09:42→21:47)
[2017-12-26] MEDS ORDERED: POTASSIUM CHLORIDE IV ONE ×4 (12:00→13:15)
[2017-12-26] MEDS ORDERED: AMINO IV ONE ×2 (12:00→12:30)
[2017-12-26] MEDS ORDERED: DEXT IV ONE ×2 (12:00→12:30)
--- NOTE | 2017-12-26 12:05 | CP.PCM.PN ---
Subjective - Date & Time of Evaluation Date of Evaluation: 12/26/17 Time of Evaluation: 12:05 - Subjective Subjective: ID note- Pt. seen and examined today. denies any fever or chills. denies any abdominal pain, denies any nausea. Objective - Vital Signs/Intake and Output Vital Signs (last 24 hours): Temp Pulse Resp BP Pulse Ox 97.6 F 100 H 20 142/81 98 12/26/17 08:37 12/26/17 09:50 12/26/17 08:37 12/26/17 09:50 12/26/17 09:50 Intake and Output: 12/26/17 12/26/17 06:59 18:59 Output Total 25 Balance -25 - Medications Medications: Current Medications Enoxaparin Sodium (Lovenox) 30 mg SC DAILY ALFREDO PRN Reason: Protocol Last Admin: 12/25/17 10:30 Dose: 30 mg Fat Emulsion Intravenous (Intralipid 20%) 500 ml IV MWF ONE Stop: 12/27/17 09:01 Metronidazole (Flagyl 500mg/100ml Ns) 100 mls @ 100 mls/hr IVPB Q8 ALFREDO PRN Reason: Protocol Last Admin: 12/26/17 09:42 Dose: 100 mls/hr Meropenem 1 gm/ Sodium (Chloride) 100 mls @ 100 mls/hr IVPB Q12 ALFREDO PRN Reason: Protocol Last Admin: 12/26/17 09:42 Dose: 100 mls/hr Amino Acids (Clinimix 5%-25%) 1,000 mls @ 30 mls/hr IV .Q24H ONE Stop: 12/26/17 13:29 Last Admin: 12/26/17 07:38 Dose: 30 mls/hr Potassium Chloride 10 meq/ (Sodium Chloride) 55 mls @ 55 mls/hr IV Q1 ALFREDO Stop: 12/26/17 12:59 Last Admin: 12/26/17 12:01 Dose: 55 mls/hr Potassium Chloride 40 meq/ (Amino Acids) 1,020 mls @ 40 mls/hr IV .Q24H ONE Stop: 12/27/17 12:29 Insulin Human Regular (Humulin R) 0 units SC ACCU-CHECK ALFREDO PRN Reason: Protocol Last Admin: 12/25/17 22:11 Dose: Not Given Morphine Sulfate (Morphine) 1 mg IVP Q4 PRN PRN Reason: Pain, moderate (4-7) Last Admin: 12/23/17 23:48 Dose: 1 mg Morphine Sulfate (Morphine) 2 mg IVP Q4 PRN PRN Reason: Pain, severe (8-10) - Labs Labs: - Additional Findings Additional findings: - Constitutional Appears: Non-toxic, No Acute Distress - Head Exam Head Exam: ATRAUMATIC - Eye Exam Eye Exam: EOMI, PERRL - ENT Exam ENT Exam: Normal Oropharynx - Neck Exam Neck exam: Positive for: Full Rom - Respiratory Exam Respiratory Exam: Clear to Auscultation Bilateral, NORMAL BREATHING PATTERN - Cardiovascular Exam Cardiovascular Exam: RRR, +S1, +S2 - GI/Abdominal Exam GI & Abdominal Exam: Normal Bowel Sounds, Soft Additional comments: has a colostomy bag over the small surgical site where she is draining yellow liquid, no surrounding erythema, no pus no distention no guarding, no rebound - Extremities Exam Extremities exam: Positive for: normal inspection - Neurological Exam Neurological exam: Alert, Oriented x 3 Laboratory Results - last 72 hr 12/22/17 12/23/17 12/23/17 19:30 19:50 22:14 WBC RBC Hgb Hct MCV MCH MCHC RDW Plt Count MPV Neut % (Auto) Lymph % (Auto) [place] % (Auto) Eos % (Auto) Baso % (Auto) Neut # (Auto) Lymph # (Auto) [place] # (Auto) Eos # (Auto) Baso # (Auto) Neutrophils % (Manual) Band Neutrophils % Lymphocytes % (Manual) Monocytes % (Manual) Eosinophils % (Manual) Myelocytes % Platelet Estimate Hypochromasia (manual) Basophilic Stippling PT INR Sodium Potassium Chloride Carbon Dioxide Anion Gap BUN Creatinine Est GFR ( Amer) Est GFR (Non-Af Amer) POC Glucose (mg/dL) 100 107 Random Glucose Calcium Phosphorus Magnesium Crossmatch See Detail 12/24/17 12/24/17 12/24/17 05:35 05:35 05:35 WBC 7.1 RBC 2.68 L Hgb 8.4 L Hct 26.1 L MCV 97.2 MCH 31.4 H MCHC 32.3 L RDW 13.2 Plt Count 218 MPV Neut % (Auto) Lymph % (Auto) [place] % (Auto) Eos % (Auto) Baso % (Auto) Neut # (Auto) Lymph # (Auto) [place] # (Auto) Eos # (Auto) Baso # (Auto) Neutrophils % (Manual) Band Neutrophils % Lymphocytes % (Manual) Monocytes % (Manual) Eosinophils % (Manual) Myelocytes % Platelet Estimate Hypochromasia (manual) Basophilic Stippling PT 13.8 H INR 1.2 Sodium Potassium Chloride Carbon Dioxide Anion Gap BUN Creatinine Est GFR ( Amer) Est GFR (Non-Af Amer) POC Glucose (mg/dL) Random Glucose Calcium Phosphorus 3.5 Magnesium 1.6 Crossmatch 12/24/17 12/24/17 12/24/17 05:43 10:57 15:34 WBC RBC Hgb Hct MCV MCH MCHC RDW Plt Count MPV Neut % (Auto) Lymph % (Auto) [place] % (Auto) Eos % (Auto) Baso % (Auto) Neut # (Auto) Lymph # (Auto) [place] # (Auto) Eos # (Auto) Baso # (Auto) Neutrophils % (Manual) Band Neutrophils % Lymphocytes % (Manual) Monocytes % (Manual) Eosinophils % (Manual) Myelocytes % Platelet Estimate Hypochromasia (manual) Basophilic Stippling PT INR Sodium Potassium Chloride Carbon Dioxide Anion Gap BUN Creatinine Est GFR ( Amer) Est GFR (Non-Af Amer) POC Glucose (mg/dL) 94 97 109 Random Glucose Calcium Phosphorus Magnesium Crossmatch 12/24/17 12/25/17 12/25/17 21:31 05:30 05:43 WBC RBC Hgb Hct MCV MCH MCHC RDW Plt Count MPV Neut % (Auto) Lymph % (Auto) [place] % (Auto) Eos % (Auto) Baso % (Auto) Neut # (Auto) Lymph # (Auto) [place] # (Auto) Eos # (Auto) Baso # (Auto) Neutrophils % (Manual) Band Neutrophils % Lymphocytes % (Manual) Monocytes % (Manual) Eosinophils % (Manual) Myelocytes % Platelet Estimate Hypochromasia (manual) Basophilic Stippling PT INR Sodium 144 Potassium 3.1 L Chloride 109 H Carbon Dioxide 25 Anion Gap 13 BUN 14 Creatinine 1.4 H Est GFR ( Amer) 43 Est GFR (Non-Af Amer) 36 POC Glucose (mg/dL) 107 159 H Random Glucose 170 H Calcium 8.2 L Phosphorus 2.5 Magnesium 1.6 Crossmatch 12/25/17 12/25/17 12/25/17 08:56 10:45 15:52 WBC 6.0 RBC 2.58 L Hgb 8.2 L Hct 24.7 L MCV 95.9 MCH 31.8 H MCHC 33.1 RDW 13.2 Plt Count 226 MPV 7.5 Neut % (Auto) 80.0 H Lymph % (Auto) 9.5 L [place] % (Auto) 8.7 Eos % (Auto) 1.2 Baso % (Auto) 0.6 Neut # (Auto) 4.8 Lymph # (Auto) 0.6 L [place] # (Auto) 0.5 Eos # (Auto) 0.1 Baso # (Auto) 0.0 Neutrophils % (Manual) 81 H Band Neutrophils % 1 Lymphocytes % (Manual) 8 L Monocytes % (Manual) 8 Eosinophils % (Manual) 1 Myelocytes % 1 H Platelet Estimate Normal Hypochromasia (manual) Slight Basophilic Stippling Slight PT INR Sodium Potassium Chloride Carbon Dioxide Anion Gap BUN Creatinine Est GFR ( Amer) Est GFR (Non-Af Amer) POC Glucose (mg/dL) 170 H 86 Random Glucose Calcium Phosphorus Magnesium Crossmatch 12/25/17 12/26/17 12/26/17 21:29 05:58 06:00 WBC RBC Hgb Hct MCV MCH MCHC RDW Plt Count MPV Neut % (Auto) Lymph % (Auto) [place] % (Auto) Eos % (Auto) Baso % (Auto) Neut # (Auto) Lymph # (Auto) [place] # (Auto) Eos # (Auto) Baso # (Auto) Neutrophils % (Manual) Band Neutrophils % Lymphocytes % (Manual) Monocytes % (Manual) Eosinophils % (Manual) Myelocytes % Platelet Estimate Hypochromasia (manual) Basophilic Stippling PT INR Sodium 144 Potassium 3.1 L Chloride 109 H Carbon Dioxide 26 Anion Gap 12 BUN 13 Creatinine 1.2 Est GFR ( Amer) 52 Est GFR (Non-Af Amer) 43 POC Glucose (mg/dL) 145 H 118 H Random Glucose 119 H Calcium 8.2 L Phosphorus Magnesium Crossmatch 12/26/17 11:10 WBC RBC Hgb Hct MCV MCH MCHC RDW Plt Count MPV Neut % (Auto) Lymph % (Auto) [place] % (Auto) Eos % (Auto) Baso % (Auto) Neut # (Auto) Lymph # (Auto) [place] # (Auto) Eos # (Auto) Baso # (Auto) Neutrophils % (Manual) Band Neutrophils % Lymphocytes % (Manual) Monocytes % (Manual) Eosinophils % (Manual) Myelocytes % Platelet Estimate Hypochromasia (manual) Basophilic Stippling PT INR Sodium Potassium Chloride Carbon Dioxide Anion Gap BUN Creatinine Est GFR ( Amer) Est GFR (Non-Af Amer) POC Glucose (mg/dL) 142 H Random Glucose Calcium Phosphorus Magnesium Crossmatch Microbiology 12/21/17 18:15 Blood-Venous Blood Culture - Preliminary NO GROWTH AFTER 4 DAYS 12/21/17 23:50 Drainage Gram Stain - Final 12/21/17 23:50 Drainage Wound Culture - Final Serratia Liquefaciens Assessment and Plan (1) Enterocutaneous fistula Status: Acute (2) Postoperative wound infection Status: Acute (3) S/P laparoscopic cholecystectomy Status: Acute - Assessment and Plan (Free Text) Assessment: A/P- 87 year old female with HTN s/p recent lap cholecystectomy and Iatrogenic enterotomy 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 remains afebrile has normal wbc count fluid cx draing from the enterocutaneous fistula- serratia Liquefaciens blood cx- neg x 1 plan- had received 3 days of IV zosyn and flagyl. based on the fluid cx results adn MEAGHAN sensitivity switched abx to meropenem yesterday . day #2 today. fistula output to be monitored by the surgical team . would advise to continue the IV meropenem till fistula output is decreased . advise at least 7-10 days. All above d/w patient and her daughter and the hospitalist .
[2017-12-26 12:49] LABS: MAGNESIUM 1.5 MG/DL (1.6-2.3)
[2017-12-26] MEDS ORDERED: [UNRECOGNIZED DRUG - OTHER] IV ONE ×2 (13:15)
[2017-12-26] MEDS ORDERED: POTASSIUM PHOSPHATE IV ONE ×2 (13:15)
[2017-12-26] MEDS ORDERED: MMOLE IV ONE ×2 (13:15)
[2017-12-26] MEDS: Enoxaparin 30 mg Syringe SC SCH (13:25)
--- NOTE | 2017-12-26 15:56 | CP.PCM.PN ---
Subjective - Date & Time of Evaluation Date of Evaluation: 12/26/17 Time of Evaluation: 12:30 - Subjective Subjective: Patient seen and examined bedside. Denies any abdominal pain or discomfort . on TPN via PICC line colostomy bag over abdominal enterofistula with minimal output last 12 hour , 25 ml. Hemodynamically stable, afebrile no acute issues overnight Feeling emotional and not open to the possibility of being discharged home or [facility] before starting Po intake Feeling weak Objective - Vital Signs/Intake and Output Vital Signs (last 24 hours): Temp Pulse Resp BP Pulse Ox 97.6 F 100 H 20 142/81 98 12/26/17 08:37 12/26/17 09:50 12/26/17 08:37 12/26/17 09:50 12/26/17 09:50 Intake and Output: 12/26/17 12/26/17 06:59 18:59 Output Total 25 Balance -25 - Medications Medications: Current Medications Enoxaparin Sodium (Lovenox) 30 mg SC DAILY ALFREDO PRN Reason: Protocol Last Admin: 12/26/17 13:25 Dose: 30 mg Metronidazole (Flagyl 500mg/100ml Ns) 100 mls @ 100 mls/hr IVPB Q8 ALFREDO PRN Reason: Protocol Last Admin: 12/26/17 09:42 Dose: 100 mls/hr Meropenem 1 gm/ Sodium (Chloride) 100 mls @ 100 mls/hr IVPB Q12 ALFREDO PRN Reason: Protocol Last Admin: 12/26/17 09:42 Dose: 100 mls/hr Potassium Chloride 10 meq/ (Sodium Chloride) 55 mls @ 55 mls/hr IV Q1 ALFREDO Stop: 12/26/17 15:59 Last Admin: 12/26/17 13:36 Dose: 55 mls/hr Potassium Chloride 40 meq/Potassium Phosphate 11.25 mmole/ Magnesium Sulfate 8.1 meq/ Amino Acids 1,025.745 mls @ 35 mls/hr IV .Q24H ONE Stop: 12/27/17 13:14 Insulin Human Regular (Humulin R) 0 units SC ACCU-CHECK ALFREDO PRN Reason: Protocol Last Admin: 12/26/17 13:24 Dose: Not Given Morphine Sulfate (Morphine) 1 mg IVP Q4 PRN PRN Reason: Pain, moderate (4-7) Last Admin: 12/23/17 23:48 Dose: 1 mg Morphine Sulfate (Morphine) 2 mg IVP Q4 PRN PRN Reason: Pain, severe (8-10) - Labs Labs: 12/25/17 08:56 12/26/17 06:00 PT 13.8 Seconds (9.8-13.1) H 12/24/17 05:35 INR 1.2 (0.9-1.2) 12/24/17 05:35 APTT 27.6 Seconds (25.6-37.1) 12/21/17 18:15 - Constitutional Appears: Non-toxic, No Acute Distress - Head Exam Head Exam: ATRAUMATIC, NORMAL INSPECTION, NORMOCEPHALIC - Eye Exam Eye Exam: EOMI, Normal appearance, PERRL Pupil Exam: NORMAL ACCOMODATION - ENT Exam ENT Exam: Mucous Membranes Dry, Normal Exam - Neck Exam Neck Exam: Full ROM, Normal Inspection - Respiratory Exam Respiratory Exam: Clear to Ausculation Bilateral, NORMAL BREATHING PATTERN. absent: Rales, Rhonchi, Wheezes - Cardiovascular Exam Cardiovascular Exam: REGULAR RHYTHM, RRR. absent: JVD - GI/Abdominal Exam GI & Abdominal Exam: Soft, Normal Bowel Sounds. absent: Distended, Guarding, Tenderness, Rebound Additional comments: periumbilical entero fistula opening with colostomy bag in place and minimal greenish fluid output no erythema - Rectal Exam Rectal Exam: Deferred - Extremities Exam Extremities Exam: Full ROM, Normal Capillary Refill, Normal Inspection. absent : Calf Tenderness, Pedal Edema - Back Exam Back Exam: NORMAL INSPECTION - Neurological Exam Neurological Exam: Alert, Awake, CN II-XII Intact, Oriented x3 - Psychiatric Exam Psychiatric exam: Normal Affect - Skin Skin Exam: Dry, Pallor, Warm Assessment and Plan - Assessment and Plan (Free Text) Assessment: 87 yo female with history of HTN and Arthritis presented with abdominal pain on 11/25/2017 and was found to have cholelithiasis and cholecystitis. Patient had laparoscopic cholecystectomy and iatrogenic enterotomy. Patient was advised to go to [facility] or TCU for therapy and continuation of IV antibiotics but the family refused.She was treated with IV zosyn during hospital stay and was sent home with PO Augmentin on 12/04/2016. 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 Patient was admitted , started on IV Zosyn and Flagyl , kept NPO ,surgery and ID consulted Surgery rec conservative mgt - NPO and TPN. 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 @5 ml output over last 12 hours 1. Enterocutaneous Fistula hx of Enterotomy Wound c/s : Serratia patient is afebrile with no WBC and no peritoneal signs On IV Meropenem as per ID recommended Meropenem at least 7-10 days, until fistula output decreases Fistula output trending down 9 25 ml last 12 hours) continie output monitoring. Surgery on board Keep NPO. Only ice chips On TPN with KCl , Mg SO4 and KPhos supplements. Lipids MWF Monitor electrolytes daily plan to d/c to [facility] 2. Acute blood loss anemia Hgb 7.4 patient does not want blood transfusion Venofer IV x 3 doses Hgb went up to 8.2 3. HTN BP stable monitor vitals 4. Hyperlipidemia hold while NPO 5. Acute Renal Insufficiency probably secondary to volume depletion improved w/ IVF hydration Crea 1.2 today from 1.9 6. Electrolyte abnormality /Hypokalemia/ hypomagnesemia/ hypophosphatemia add KCl , magesim sulphate and Kphosp in TPMN monitor daily 7.DVT Prophylaxis Lovenox
[2017-12-27] MEDS: metroNIDAZOLE 500mg/100ml NS 100 ML IVPB SCH ×3 (00:43→16:57)
[2017-12-27] MEDS: Insulin Regular 100 units/ml SC SCH ×4 (06:14→22:47)
[2017-12-27 06:46] LABS: BLOOD UREA NITROGEN 16 mg/dl (7-17); CALCIUM 8.5 mg/dL (8.4-10.2); GFR AFRICAN-AMERICAN > 60; GFR NON-AFRICAN AMERICAN 53; MAGNESIUM 1.4 MG/DL (1.6-2.3)
[2017-12-27] MEDS: Enoxaparin 30 mg Syringe SC SCH (09:01)
[2017-12-27] MEDS: Meropenem 1 GM in Sodium Chloride 0.9% 100 ML IVPB SCH ×2 (09:01→22:40)
[2017-12-27] MEDS ORDERED: Magnesium Sulfate 1 gm in D5W 1 GM/100 ML BAG IVPB ONE (12:12)
[2017-12-27] MEDS ORDERED: Potassium Phosphate 3 mmol/ml Inj IV ONE (12:12)
--- NOTE | 2017-12-27 12:52 | CP.PCM.PN ---
Subjective - Date & Time of Evaluation Date of Evaluation: 12/27/17 Time of Evaluation: 12:30 - Subjective Subjective: Patient was seen and examined at the bedside. Fistula output is minimal. Objective - Vital Signs/Intake and Output Vital Signs (last 24 hours): Temp Pulse Resp BP Pulse Ox 98.1 F 97 H 18 135/75 98 12/27/17 08:01 12/27/17 08:01 12/27/17 08:01 12/27/17 08:01 12/27/17 08:01 Intake and Output: 12/27/17 12/27/17 06:59 18:59 Output Total 20 Balance -20 - Medications Medications: Current Medications Enoxaparin Sodium (Lovenox) 30 mg SC DAILY ALFREDO PRN Reason: Protocol Last Admin: 12/27/17 09:01 Dose: 30 mg Metronidazole (Flagyl 500mg/100ml Ns) 100 mls @ 100 mls/hr IVPB Q8 ALFREDO PRN Reason: Protocol Last Admin: 12/27/17 09:01 Dose: 100 mls/hr Meropenem 1 gm/ Sodium (Chloride) 100 mls @ 100 mls/hr IVPB Q12 ALFREDO PRN Reason: Protocol Last Admin: 12/27/17 09:01 Dose: 100 mls/hr Potassium Chloride 40 meq/Potassium Phosphate 11.25 mmole/ Magnesium Sulfate 8.1 meq/ Amino Acids 1,025.745 mls @ 35 mls/hr IV .Q24H ONE Stop: 12/27/17 13:14 Last Admin: 12/26/17 15:00 Dose: 35 mls/hr Magnesium Sulfate/Dextrose (Magnesium Sulfate 1 Gm/100 Ml D5w) 1 gm in 100 mls @ 100 mls/hr IVPB ONCE ONE PRN Reason: 1 GM/HR Stop: 12/27/17 13:11 Insulin Human Regular (Humulin R) 0 units SC ACCU-CHECK ALFREDO PRN Reason: Protocol Last Admin: 12/27/17 11:49 Dose: Not Given Morphine Sulfate (Morphine) 1 mg IVP Q4 PRN PRN Reason: Pain, moderate (4-7) Last Admin: 12/23/17 23:48 Dose: 1 mg Morphine Sulfate (Morphine) 2 mg IVP Q4 PRN PRN Reason: Pain, severe (8-10) Potassium Phosphate (Potassium Phosphate) 11.25 mmole 0.16 mmole/kg (11.25 mmole) IV ONCE ONE Stop: 12/27/17 12:13 - Labs Labs: 12/25/17 08:56 12/27/17 05:00 PT 13.8 Seconds (9.8-13.1) H 12/24/17 05:35 INR 1.2 (0.9-1.2) 12/24/17 05:35 APTT 27.6 Seconds (25.6-37.1) 12/21/17 18:15 - Constitutional Appears: Well, Non-toxic, No Acute Distress - Head Exam Head Exam: ATRAUMATIC, NORMAL INSPECTION, NORMOCEPHALIC - Eye Exam Eye Exam: EOMI, Normal appearance, PERRL Pupil Exam: NORMAL ACCOMODATION, PERRL - ENT Exam ENT Exam: Mucous Membranes Moist, Normal Exam - Neck Exam Neck Exam: Full ROM, Normal Inspection - Respiratory Exam Respiratory Exam: Clear to Ausculation Bilateral, NORMAL BREATHING PATTERN - Cardiovascular Exam Cardiovascular Exam: REGULAR RHYTHM, +S1, +S2 - GI/Abdominal Exam GI & Abdominal Exam: Soft, Normal Bowel Sounds Additional comments: NT, ND, no rebound, no guarding, ostomy appliance on the fistula with minimal output in the bag - Rectal Exam Rectal Exam: Deferred - Extremities Exam Extremities Exam: Full ROM, Normal Inspection - Neurological Exam Neurological Exam: Alert, Awake, Oriented x3 - Psychiatric Exam Psychiatric exam: Normal Affect, Normal Mood - Skin Skin Exam: Dry, Intact, Normal Color, Warm Assessment and Plan - Assessment and Plan (Free Text) Assessment: 87 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
--- NOTE | 2017-12-27 15:14 | CP.PCM.PN ---
Subjective - Date & Time of Evaluation Date of Evaluation: 12/27/17 Time of Evaluation: 12:30 - Subjective Subjective: Patient seen and examined bedside. Denies any pain . Hemodynamically stable , afebrile. No acute issues overnight With minimal output from fistula last 12 hours , 25 ml on TPN infusion via PICC line Objective - Vital Signs/Intake and Output Vital Signs (last 24 hours): Temp Pulse Resp BP Pulse Ox 98.1 F 97 H 18 135/75 98 12/27/17 08:01 12/27/17 08:01 12/27/17 08:01 12/27/17 08:01 12/27/17 08:01 Intake and Output: 12/27/17 12/27/17 06:59 18:59 Output Total 20 Balance -20 - Medications Medications: Current Medications Enoxaparin Sodium (Lovenox) 30 mg SC DAILY ALFREDO PRN Reason: Protocol Last Admin: 12/27/17 09:01 Dose: 30 mg Metronidazole (Flagyl 500mg/100ml Ns) 100 mls @ 100 mls/hr IVPB Q8 ALFREDO PRN Reason: Protocol Last Admin: 12/27/17 09:01 Dose: 100 mls/hr Meropenem 1 gm/ Sodium (Chloride) 100 mls @ 100 mls/hr IVPB Q12 ALFREDO PRN Reason: Protocol Last Admin: 12/27/17 09:01 Dose: 100 mls/hr Insulin Human Regular (Humulin R) 0 units SC ACCU-CHECK ALFREDO PRN Reason: Protocol Last Admin: 12/27/17 11:49 Dose: Not Given Morphine Sulfate (Morphine) 1 mg IVP Q4 PRN PRN Reason: Pain, moderate (4-7) Last Admin: 12/23/17 23:48 Dose: 1 mg Morphine Sulfate (Morphine) 2 mg IVP Q4 PRN PRN Reason: Pain, severe (8-10) Potassium Phosphate (Potassium Phosphate) 11.25 mmole 0.16 mmole/kg (11.25 mmole) IV ONCE ONE Stop: 12/27/17 12:13 - Labs Labs: 12/25/17 08:56 12/27/17 05:00 PT 13.8 Seconds (9.8-13.1) H 12/24/17 05:35 INR 1.2 (0.9-1.2) 12/24/17 05:35 APTT 27.6 Seconds (25.6-37.1) 12/21/17 18:15 - Constitutional Appears: Non-toxic, No Acute Distress - Head Exam Head Exam: ATRAUMATIC, NORMAL INSPECTION, NORMOCEPHALIC - Eye Exam Eye Exam: EOMI, Normal appearance, PERRL Pupil Exam: NORMAL ACCOMODATION - ENT Exam ENT Exam: Mucous Membranes Dry, Normal Exam - Neck Exam Neck Exam: Full ROM, Normal Inspection - Respiratory Exam Respiratory Exam: Clear to Ausculation Bilateral, NORMAL BREATHING PATTERN. absent: Rales, Rhonchi, Wheezes, Respiratory Distress - Cardiovascular Exam Cardiovascular Exam: REGULAR RHYTHM, RRR, +S1, +S2. absent: JVD - GI/Abdominal Exam GI & Abdominal Exam: Soft, Normal Bowel Sounds. absent: Distended, Rebound Additional comments: colostomy bag over midline enterocutaneous fistula with minimal greenish fluid output - Rectal Exam Rectal Exam: Deferred - Extremities Exam Extremities Exam: Full ROM, Normal Capillary Refill, Normal Inspection. absent : Pedal Edema - Back Exam Back Exam: NORMAL INSPECTION - Neurological Exam Neurological Exam: Alert, Awake, CN II-XII Intact, Oriented x3 - Psychiatric Exam Psychiatric exam: Normal Affect - Skin Skin Exam: Dry, Pallor, Warm Assessment and Plan - Assessment and Plan (Free Text) Assessment: 87 yo female with history of HTN and Arthritis presented with abdominal pain on 11/25/2017 and was found to have cholelithiasis and cholecystitis. Patient had laparoscopic cholecystectomy and iatrogenic enterotomy. Patient was advised to go to [facility] or TCU for therapy and continuation of IV antibiotics but the family refused.She was treated with IV zosyn during hospital stay and was sent home with PO Augmentin on 12/04/2016. 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 Patient was admitted , started on IV Zosyn and Flagyl , kept NPO ,surgery and ID consulted Surgery rec conservative mgt - NPO and TPN. 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 25 ml output over last 12 hours 1. Enterocutaneous Fistula hx of Enterotomy Wound c/s : Serratia Fistula output trending down to 25 ml last 12 hours patient is afebrile with no WBC and no peritoneal signs On IV Meropenem and flagyl .ID recommended Meropenem at least 7-10 days, until fistula output decreases continue output monitoring. Surgery on board Keep NPO for now. Only ice chips. Will possibly start on Liquid diet in Am if output is still trending down Continue TPN with KCl , MgSO4 and KPhos supplements. Lipids MWF Monitor electrolytes daily 2. Acute blood loss anemia patient does not want blood transfusion Venofer IV x 3 doses given Hgb 8.2 3. HTN BP stable monitor vitals 4. Hyperlipidemia hold while NPO 5. Acute Renal Insufficiency probably secondary to volume depletion improved w/ IVF hydration Crea 1.2 today from 1.9 6. Electrolyte abnormality /Hypokalemia/ hypomagnesemia/ hypophosphatemia add KCl , magnesium sulphate and Kphos in TPN monitor daily 7.DVT Prophylaxis Lovenox
[2017-12-27] MEDS ORDERED: MMOLE IV ONE (16:00)
[2017-12-27] MEDS ORDERED: POTASSIUM PHOSPHATE IV ONE ×2 (16:00→18:45)
[2017-12-27] MEDS ORDERED: [UNRECOGNIZED DRUG - OTHER] IV ONE (16:00)
[2017-12-27] MEDS ORDERED: POTASSIUM CHLORIDE IV ONE (16:00)
[2017-12-27] MEDS ORDERED: SODIUM CHLORIDE IV ONE (18:45)
[2017-12-28] MEDS: metroNIDAZOLE 500mg/100ml NS 100 ML IVPB SCH ×3 (01:17→16:11)
[2017-12-28] MEDS: Insulin Regular 100 units/ml SC SCH ×4 (07:00→22:30)
--- NOTE | 2017-12-28 07:33 | CP.PCM.PN ---
Subjective - Date & Time of Evaluation Date of Evaluation: 12/28/17 Time of Evaluation: 07:31 - Subjective Subjective: General Surgery: Dr Lawler Pt S&E. NAEO. TPN, MG, PO4 infusing. Denies sob, cp, n/v, f/c. Denies pain. Objective - Vital Signs/Intake and Output Vital Signs (last 24 hours): Temp Pulse Resp BP Pulse Ox 98.3 F 103 H 19 160/72 H 97 12/28/17 00:00 12/28/17 00:00 12/28/17 00:00 12/28/17 00:00 12/28/17 00:00 Intake and Output: 12/28/17 12/28/17 06:59 18:59 Intake Total 300 Output Total 0 Balance 300 - Medications Medications: Current Medications Enoxaparin Sodium (Lovenox) 30 mg SC DAILY ALFREDO PRN Reason: Protocol Last Admin: 12/27/17 09:01 Dose: 30 mg Fat Emulsion Intravenous (Intralipid 20%) 250 ml IV MWF@1800 ALFREDO Last Admin: 12/27/17 18:45 Dose: 250 ml Metronidazole (Flagyl 500mg/100ml Ns) 100 mls @ 100 mls/hr IVPB Q8 ALFREDO PRN Reason: Protocol Last Admin: 12/28/17 01:17 Dose: 100 mls/hr Meropenem 1 gm/ Sodium (Chloride) 100 mls @ 100 mls/hr IVPB Q12 ALFREDO PRN Reason: Protocol Last Admin: 12/27/17 22:40 Dose: 100 mls/hr Potassium Chloride 40 meq/Potassium Phosphate 11.25 mmole/ Magnesium Sulfate 8.12 meq/ Amino Acids 1,025.75 mls @ 35 mls/hr IV .Q24H ONE Stop: 12/28/17 15:59 Last Admin: 12/27/17 17:22 Dose: 35 mls/hr Insulin Human Regular (Humulin R) 0 units SC ACCU-CHECK ALFREDO PRN Reason: Protocol Last Admin: 12/27/17 22:47 Dose: Not Given Morphine Sulfate (Morphine) 1 mg IVP Q4 PRN PRN Reason: Pain, moderate (4-7) Last Admin: 12/23/17 23:48 Dose: 1 mg Morphine Sulfate (Morphine) 2 mg IVP Q4 PRN PRN Reason: Pain, severe (8-10) - Labs Labs: 12/25/17 08:56 12/27/17 05:00 PT 13.8 Seconds (9.8-13.1) H 12/24/17 05:35 INR 1.2 (0.9-1.2) 12/24/17 05:35 APTT 27.6 Seconds (25.6-37.1) 12/21/17 18:15 - Constitutional Appears: Non-toxic, No Acute Distress - Eye Exam Eye Exam: Normal appearance - Respiratory Exam Respiratory Exam: absent: Accessory Muscle Use, Respiratory Distress - Cardiovascular Exam Cardiovascular Exam: Tachycardia (100-105), REGULAR RHYTHM - GI/Abdominal Exam GI & Abdominal Exam: Soft. 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
[2017-12-28] MEDS: Enoxaparin 30 mg Syringe SC SCH (08:29)
[2017-12-28] MEDS: Meropenem 1 GM in Sodium Chloride 0.9% 100 ML IVPB SCH ×2 (08:30→21:06)
[2017-12-28 08:53] LABS: BLOOD UREA NITROGEN 19 mg/dl (7-17); CALCIUM 7.9 mg/dL (8.4-10.2); GFR AFRICAN-AMERICAN > 60; GFR NON-AFRICAN AMERICAN 53; MAGNESIUM 1.9 MG/DL (1.6-2.3)
--- NOTE | 2017-12-28 08:56 | CP.PCM.PN ---
Subjective - Date & Time of Evaluation Date of Evaluation: 12/28/17 Time of Evaluation: 08:15 - Subjective Subjective: No fever Pt denies abd pain very minimal drainage from fistula denies CP no SOB Objective - Vital Signs/Intake and Output Vital Signs (last 24 hours): Temp Pulse Resp BP Pulse Ox 98.1 F 105 H 18 160/84 H 98 12/28/17 07:49 12/28/17 07:49 12/28/17 07:49 12/28/17 07:49 12/28/17 07:49 Intake and Output: 12/28/17 12/28/17 06:59 18:59 Intake Total 300 630 Output Total 0 0 Balance 300 630 - Medications Medications: Current Medications Enoxaparin Sodium (Lovenox) 30 mg SC DAILY ALFREDO PRN Reason: Protocol Last Admin: 12/28/17 08:29 Dose: 30 mg Fat Emulsion Intravenous (Intralipid 20%) 250 ml IV MWF@1800 ALFREDO Last Admin: 12/27/17 18:45 Dose: 250 ml Metronidazole (Flagyl 500mg/100ml Ns) 100 mls @ 100 mls/hr IVPB Q8 ALFREDO PRN Reason: Protocol Last Admin: 12/28/17 08:30 Dose: 100 mls/hr Meropenem 1 gm/ Sodium (Chloride) 100 mls @ 100 mls/hr IVPB Q12 ALFREDO PRN Reason: Protocol Last Admin: 12/28/17 08:30 Dose: 100 mls/hr Potassium Chloride 40 meq/Potassium Phosphate 11.25 mmole/ Magnesium Sulfate 8.12 meq/ Amino Acids 1,025.75 mls @ 35 mls/hr IV .Q24H ONE Stop: 12/28/17 15:59 Last Admin: 12/27/17 17:22 Dose: 35 mls/hr Insulin Human Regular (Humulin R) 0 units SC ACCU-CHECK ALFREDO PRN Reason: Protocol Last Admin: 12/28/17 07:00 Dose: Not Given Morphine Sulfate (Morphine) 1 mg IVP Q4 PRN PRN Reason: Pain, moderate (4-7) Last Admin: 12/23/17 23:48 Dose: 1 mg Morphine Sulfate (Morphine) 2 mg IVP Q4 PRN PRN Reason: Pain, severe (8-10) - Labs Labs: 12/25/17 08:56 12/28/17 06:34 PT 13.8 Seconds (9.8-13.1) H 12/24/17 05:35 INR 1.2 (0.9-1.2) 12/24/17 05:35 APTT 27.6 Seconds (25.6-37.1) 12/21/17 18:15 - Constitutional Appears: No Acute Distress, Chronically Ill - Head Exam Head Exam: NORMAL INSPECTION, NORMOCEPHALIC - Eye Exam Eye Exam: EOMI, Normal appearance Pupil Exam: NORMAL ACCOMODATION - ENT Exam ENT Exam: Mucous Membranes Dry, Normal External Ear Exam - Neck Exam Neck Exam: Full ROM. absent: Meningismus - Respiratory Exam Respiratory Exam: NORMAL BREATHING PATTERN. absent: Respiratory Distress - Cardiovascular Exam Cardiovascular Exam: REGULAR RHYTHM, +S1, +S2 - GI/Abdominal Exam GI & Abdominal Exam: Soft, Normal Bowel Sounds. absent: Tenderness Additional comments: Colostomy bag placed on abd wall fistula : minimal drainage - Extremities Exam Extremities Exam: Normal Capillary Refill. absent: Calf Tenderness, Pedal Edema - Back Exam Back Exam: absent: CVA tenderness (L), CVA tenderness (R) - Neurological Exam Neurological Exam: Alert, Oriented x3 - Psychiatric Exam Psychiatric exam: Normal Affect, Normal Mood - Skin Skin Exam: Dry, Normal Color, Warm Assessment and Plan - Assessment and Plan (Free Text) Assessment: 87 yo female with history of HTN and Arthritis presented with abdominal pain on 11/25/2017 and was found to have cholelithiasis and cholecystitis. Patient had laparoscopic cholecystectomy and iatrogenic enterotomy. Patient was advised to go to [facility] or TCU for therapy and continuation of IV antibiotics but the family refused.She was treated with IV zosyn during hospital stay and was sent home with PO Augmentin on 12/04/2016. 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 Patient was admitted , started on IV Zosyn and Flagyl , kept NPO ,surgery and ID consulted Surgery rec conservative mgt - NPO and TPN. 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 Minimal output from fistula 1. Enterocutaneous Fistula hx of Enterotomy Wound c/s : Serratia Fistula output trending down patient is afebrile with no WBC and no peritoneal signs On IV Meropenem and flagyl . ID recommended Meropenem at least 7-10 days, until fistula output decreases continue output monitoring. Surgery on board - started liquid diet for lunch Continue TPN with KCl , MgSO4 and KPhos supplements. Lipids MWF Monitor electrolytes daily 2. Acute blood loss anemia patient does not want blood transfusion Venofer IV x 3 doses given Hgb 8.2 3. HTN BP stable monitor vitals 4. Hyperlipidemia hold while NPO 5. Acute Renal Insufficiency probably secondary to volume depletion improved w/ IVF hydration Crea 1.0 today from 1.9 6. Electrolyte abnormality /Hypokalemia/ hypomagnesemia/ hypophosphatemia add KCl , magnesium sulphate and Kphos in TPN monitor daily 7.DVT Prophylaxis Lovenox
[2017-12-28 09:17] LABS: MAGNESIUM 1.8 MG/DL (1.6-2.3)
[2017-12-28] MEDS ORDERED: [UNRECOGNIZED DRUG - OTHER] IV ONE (12:45)
[2017-12-28] MEDS ORDERED: POTASSIUM PHOSPHATE IV ONE (12:45)
[2017-12-28] MEDS ORDERED: POTASSIUM CHLORIDE IV ONE (12:45)
[2017-12-28] MEDS ORDERED: MMOLE IV ONE (12:45)
[2017-12-29] MEDS: metroNIDAZOLE 500mg/100ml NS 100 ML IVPB SCH ×3 (00:25→17:18)
[2017-12-29] MEDS: Insulin Regular 100 units/ml SC SCH ×4 (07:00→22:30)
--- NOTE | 2017-12-29 09:11 | CP.PCM.PN ---
Subjective - Date & Time of Evaluation Date of Evaluation: 12/29/17 Time of Evaluation: 06:05 - Subjective Subjective: General Surgery Patient seen and examined at bedside this AM. No acute events overnight. minimal to no output from the EC drain site. tolerating CLD. Denies F/C CP?SOB N /V/D Objective - Vital Signs/Intake and Output Vital Signs (last 24 hours): Temp Pulse Resp BP Pulse Ox 98.1 F 108 H 20 148/86 99 12/28/17 23:39 12/28/17 23:39 12/28/17 23:39 12/28/17 23:39 12/28/17 23:39 - Medications Medications: Current Medications Enoxaparin Sodium (Lovenox) 30 mg SC DAILY ALFREDO PRN Reason: Protocol Last Admin: 12/28/17 08:29 Dose: 30 mg Fat Emulsion Intravenous (Intralipid 20%) 250 ml IV MWF ALFREDO Metronidazole (Flagyl 500mg/100ml Ns) 100 mls @ 100 mls/hr IVPB Q8 ALFREDO PRN Reason: Protocol Last Admin: 12/29/17 00:25 Dose: 100 mls/hr Meropenem 1 gm/ Sodium (Chloride) 100 mls @ 100 mls/hr IVPB Q12 ALFREDO PRN Reason: Protocol Last Admin: 12/28/17 21:06 Dose: 100 mls/hr Potassium Chloride 40 meq/Potassium Phosphate 11.25 mmole/ Magnesium Sulfate 8.12 meq/ Amino Acids 1,025.75 mls @ 35 mls/hr IV .Q24H ONE Stop: 12/29/17 12:44 Last Admin: 12/28/17 15:36 Dose: 35 mls/hr Insulin Human Regular (Humulin R) 0 units SC ACCU-CHECK ALFREDO PRN Reason: Protocol Last Admin: 12/29/17 07:00 Dose: Not Given Morphine Sulfate (Morphine) 1 mg IVP Q4 PRN PRN Reason: Pain, moderate (4-7) Last Admin: 12/23/17 23:48 Dose: 1 mg Morphine Sulfate (Morphine) 2 mg IVP Q4 PRN PRN Reason: Pain, severe (8-10) - Labs Labs: 12/25/17 08:56 12/28/17 06:34 PT 13.8 Seconds (9.8-13.1) H 12/24/17 05:35 INR 1.2 (0.9-1.2) 12/24/17 05:35 APTT 27.6 Seconds (25.6-37.1) 12/21/17 18:15 - Constitutional Appears: Non-toxic, No Acute Distress - Head Exam Head Exam: ATRAUMATIC - Eye Exam Eye Exam: EOMI. absent: Scleral icterus - ENT Exam ENT Exam: Mucous Membranes Moist - Respiratory Exam Respiratory Exam: NORMAL BREATHING PATTERN. absent: Accessory Muscle Use, Respiratory Distress - Cardiovascular Exam Cardiovascular Exam: +S1, +S2. absent: Bradycardia, Tachycardia - GI/Abdominal Exam GI & Abdominal Exam: Soft. absent: Distended, Firm, Guarding, Rigid Additional comments: EC fistula minimal to no output in bag - Extremities Exam Extremities Exam: Normal Inspection. absent: Calf Tenderness - Neurological Exam Neurological Exam: Alert, Awake, Oriented x3 - Psychiatric Exam Psychiatric exam: Normal Affect - Skin Skin Exam: Intact, Normal Color, Warm Assessment and Plan - Assessment and Plan (Free Text) Assessment: 87F w/ entercutaneous fistula Plan: - Keep NPO for now - continue CLD - Monitor fistula output - Antibiotics as per ID - IV fluids - further recs per surgical attending PGY1
[2017-12-29] MEDS: Enoxaparin 30 mg Syringe SC SCH (09:31)
[2017-12-29] MEDS: Meropenem 1 GM in Sodium Chloride 0.9% 100 ML IVPB SCH ×2 (09:32→21:18)
--- NOTE | 2017-12-29 10:19 | CP.PCM.PN ---
Subjective - Date & Time of Evaluation Date of Evaluation: 12/29/17 Time of Evaluation: 10:00 - Subjective Subjective: Pt remains afebrile denies abd pain started on Liquid diet yesterday Barely any output from Fistula no CP no SOB tolerating TPN Objective - Vital Signs/Intake and Output Vital Signs (last 24 hours): Temp Pulse Resp BP Pulse Ox 98.4 F 104 H 20 129/82 97 12/29/17 08:35 12/29/17 08:35 12/29/17 08:35 12/29/17 08:35 12/29/17 08:35 - Medications Medications: Current Medications Enoxaparin Sodium (Lovenox) 30 mg SC DAILY ALFREDO PRN Reason: Protocol Last Admin: 12/29/17 09:31 Dose: 30 mg Fat Emulsion Intravenous (Intralipid 20%) 250 ml IV MWF ALFREDO Metronidazole (Flagyl 500mg/100ml Ns) 100 mls @ 100 mls/hr IVPB Q8 ALFREDO PRN Reason: Protocol Last Admin: 12/29/17 09:30 Dose: 100 mls/hr Meropenem 1 gm/ Sodium (Chloride) 100 mls @ 100 mls/hr IVPB Q12 ALFREDO PRN Reason: Protocol Last Admin: 12/29/17 09:32 Dose: 100 mls/hr Potassium Chloride 40 meq/Potassium Phosphate 11.25 mmole/ Magnesium Sulfate 8.12 meq/ Amino Acids 1,025.75 mls @ 35 mls/hr IV .Q24H ONE Stop: 12/29/17 12:44 Last Admin: 12/28/17 15:36 Dose: 35 mls/hr Insulin Human Regular (Humulin R) 0 units SC ACCU-CHECK ALFREDO PRN Reason: Protocol Last Admin: 12/29/17 07:00 Dose: Not Given Morphine Sulfate (Morphine) 1 mg IVP Q4 PRN PRN Reason: Pain, moderate (4-7) Last Admin: 12/23/17 23:48 Dose: 1 mg Morphine Sulfate (Morphine) 2 mg IVP Q4 PRN PRN Reason: Pain, severe (8-10) - Labs Labs: 12/25/17 08:56 12/28/17 06:34 PT 13.8 Seconds (9.8-13.1) H 12/24/17 05:35 INR 1.2 (0.9-1.2) 12/24/17 05:35 APTT 27.6 Seconds (25.6-37.1) 12/21/17 18:15 - Constitutional Appears: No Acute Distress, Chronically Ill - Head Exam Head Exam: NORMAL INSPECTION, NORMOCEPHALIC - Eye Exam Eye Exam: EOMI, Normal appearance Pupil Exam: NORMAL ACCOMODATION - ENT Exam ENT Exam: Mucous Membranes Dry, Normal External Ear Exam - Neck Exam Neck Exam: Full ROM. absent: Meningismus - Respiratory Exam Respiratory Exam: NORMAL BREATHING PATTERN. absent: Respiratory Distress - Cardiovascular Exam Cardiovascular Exam: REGULAR RHYTHM, +S1, +S2 - GI/Abdominal Exam GI & Abdominal Exam: Soft, Normal Bowel Sounds. absent: Tenderness Additional comments: Colostomy bag placed on abd wall fistula : minimal drainage - Extremities Exam Extremities Exam: Normal Capillary Refill. absent: Calf Tenderness, Pedal Edema - Back Exam Back Exam: absent: CVA tenderness (L), CVA tenderness (R) - Neurological Exam Neurological Exam: Alert, Oriented x3 - Psychiatric Exam Psychiatric exam: Normal Affect, Normal Mood - Skin Skin Exam: Dry, Normal Color, Warm Assessment and Plan - Assessment and Plan (Free Text) Assessment: 87 yo female with history of HTN and Arthritis presented with abdominal pain on 11/25/2017 and was found to have cholelithiasis and cholecystitis. Patient had laparoscopic cholecystectomy and iatrogenic enterotomy. Patient was advised to go to [facility] or TCU for therapy and continuation of IV antibiotics but the family refused.She was treated with IV Zosyn during hospital stay and was sent home with PO Augmentin on 12/04/2016. 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 Patient was admitted , started on IV Zosyn and Flagyl , kept NPO ,surgery and ID consulted Surgery rec conservative mgt - NPO and TPN. 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 Pt now started on Liquid diet. 1. Enterocutaneous Fistula hx of Enterotomy Wound c/s : Serratia Fistula output trending down and now barely has any output patient is afebrile with no WBC and no peritoneal signs On IV Meropenem and flagyl . ID recommended Meropenem at least 7-10 days, until fistula output decreases continue output monitoring. Surgery is following pt - started Liquid diet Continue TPN with KCl , MgSO4 and KPhos supplements. Lipids MWF Monitor electrolytes daily 2. Acute blood loss anemia patient does not want blood transfusion Venofer IV x 3 doses given Hgb 8.2 3. HTN BP stable monitor vitals 4. Hyperlipidemia hold while NPO 5. Acute Renal Insufficiency probably secondary to volume depletion improved w/ IVF hydration Crea 1.0 now from 1.9 6. Electrolyte abnormality /Hypokalemia/ hypomagnesemia/ hypophosphatemia add KCl , magnesium sulphate and Kphos in TPN monitor daily 7.DVT Prophylaxis Lovenox
[2017-12-29] MEDS ORDERED: POTASSIUM CHLORIDE IV ONE (13:00)
[2017-12-29] MEDS ORDERED: [UNRECOGNIZED DRUG - OTHER] IV ONE (13:00)
[2017-12-29] MEDS ORDERED: MMOLE IV ONE (13:00)
[2017-12-29] MEDS ORDERED: POTASSIUM PHOSPHATE IV ONE (13:00)
[2017-12-30] MEDS: metroNIDAZOLE 500mg/100ml NS 100 ML IVPB SCH ×3 (01:53→17:19)
[2017-12-30] MEDS: Insulin Regular 100 units/ml SC SCH ×4 (06:00→23:53)
[2017-12-30 06:35] LABS: HEMOGLOBIN 9.1 g/dL (12.0-16.0); MEAN CELL VOLUME 96.7 fl (81.0-99.0); MEAN CORPUSCULAR HEMOGLOBIN 32.4 pg (27.0-31.0); MEAN CORPUSCULAR HGB CONC 33.5 g/dL (33.0-37.0); RBC 2.81 Mil/uL (3.80-5.20); RED CELL DISTRIBUTION WIDTH 13.6 % (11.5-14.5); WHITE BLOOD COUNT 6.6 K/uL (4.8-10.8)
[2017-12-30 06:55] LABS: ALB/GLOB RATIO 0.9 (1.0-2.1); ALBUMIN 3.1 g/dL (3.5-5.0); ALT/SGPT 43 U/L (9-52); AST/SGOT 28 U/L (14-36); BLOOD UREA NITROGEN 22 mg/dl (7-17); CALCIUM 8.6 mg/dL (8.4-10.2); GFR AFRICAN-AMERICAN > 60; GFR NON-AFRICAN AMERICAN 53; MAGNESIUM 2.1 MG/DL (1.6-2.3)
--- NOTE | 2017-12-30 07:56 | CP.PCM.PN ---
<Carlota Colindres - Last Filed: 12/30/17 07:52> Subjective - Date & Time of Evaluation Date of Evaluation: 12/30/17 Time of Evaluation: 07:40 - Subjective Subjective: General Surgery Dr. Lawler Pt S&E @bedside. NAEO. Pt c/o itching at site of fistula bag. denies F/C, N/V, abd pain. tolerating CLD. Fistula output 0cc x24hrs Objective - Vital Signs/Intake and Output Vital Signs (last 24 hours): Temp Pulse Resp BP Pulse Ox 98.0 F 100 H 18 127/76 99 12/29/17 23:50 12/29/17 23:50 12/29/17 23:50 12/29/17 23:50 12/29/17 23:50 - Medications Medications: Current Medications Fat Emulsion Intravenous (Intralipid 20%) 250 ml IV MWF [facility] Metronidazole (Flagyl 500mg/100ml Ns) 100 mls @ 100 mls/hr IVPB Q8 [facility] PRN Reason: Protocol Last Admin: 12/30/17 01:53 Dose: 100 mls/hr Meropenem 1 gm/ Sodium (Chloride) 100 mls @ 100 mls/hr IVPB Q12 [facility] PRN Reason: Protocol Last Admin: 12/29/17 21:18 Dose: 100 mls/hr Potassium Chloride 40 meq/Potassium Phosphate 11.25 mmole/ Magnesium Sulfate 8.1 meq/ Amino Acids 1,025.745 mls @ 35 mls/hr IV .Q24H ONE Stop: 12/30/17 12:59 Last Admin: 12/29/17 21:18 Dose: 35 mls/hr Insulin Human Regular (Humulin R) 0 units SC ACCU-CHECK [facility]O PRN Reason: Protocol Last Admin: 12/29/17 22:30 Dose: Not Given Morphine Sulfate (Morphine) 1 mg IVP Q4 PRN PRN Reason: Pain, moderate (4-7) Last Admin: 12/23/17 23:48 Dose: 1 mg Morphine Sulfate (Morphine) 2 mg IVP Q4 PRN PRN Reason: Pain, severe (8-10) - Labs Labs: 12/30/17 05:20 12/30/17 05:20 PT 13.8 Seconds (9.8-13.1) H 12/24/17 05:35 INR 1.2 (0.9-1.2) 12/24/17 05:35 APTT 27.6 Seconds (25.6-37.1) 12/21/17 18:15 - Constitutional Appears: Non-toxic, No Acute Distress - Head Exam Head Exam: NORMAL INSPECTION - Eye Exam Eye Exam: Normal appearance - ENT Exam ENT Exam: Mucous Membranes Moist - Respiratory Exam Respiratory Exam: NORMAL BREATHING PATTERN. absent: Accessory Muscle Use, Respiratory Distress - GI/Abdominal Exam GI & Abdominal Exam: Soft. 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 Bucky Colindres DO PGY2 <Michael Lawler - Last Filed: 12/30/17 09:52> Subjective - Date & Time of Evaluation Time of Evaluation: 09:30 - Subjective Subjective: Patient was seen and examined at the bedside. Agree with the resident's note above. Objective - Vital Signs/Intake and Output Vital Signs (last 24 hours): Temp Pulse Resp BP Pulse Ox 98.4 F 92 H 20 127/77 94 L 12/30/17 08:05 12/30/17 08:05 12/30/17 08:05 12/30/17 08:05 12/30/17 08:05 Intake and Output: 12/30/17 12/30/17 06:59 18:59 Intake Total 600 Output Total 0 Balance 600 - Medications Medications: Current Medications Fat Emulsion Intravenous (Intralipid 20%) 250 ml IV MWF [facility] Metronidazole (Flagyl 500mg/100ml Ns) 100 mls @ 100 mls/hr IVPB Q8 [facility] PRN Reason: Protocol Last Admin: 12/30/17 09:16 Dose: 100 mls/hr Meropenem 1 gm/ Sodium (Chloride) 100 mls @ 100 mls/hr IVPB Q12 [facility]O PRN Reason: Protocol Last Admin: 12/30/17 09:17 Dose: 100 mls/hr Potassium Chloride 40 meq/Potassium Phosphate 11.25 mmole/ Magnesium Sulfate 8.1 meq/ Amino Acids 1,025.745 mls @ 35 mls/hr IV .Q24H ONE Stop: 12/30/17 12:59 Last Admin: 12/29/17 21:18 Dose: 35 mls/hr Insulin Human Regular (Humulin R) 0 units SC ACCU-CHECK ALFREDO PRN Reason: Protocol Last Admin: 12/30/17 06:00 Dose: Not Given Morphine Sulfate (Morphine) 1 mg IVP Q4 PRN PRN Reason: Pain, moderate (4-7) Last Admin: 12/23/17 23:48 Dose: 1 mg Morphine Sulfate (Morphine) 2 mg IVP Q4 PRN PRN Reason: Pain, severe (8-10) - Labs Labs: 12/30/17 05:20 12/30/17 05:20 PT 13.8 Seconds (9.8-13.1) H 12/24/17 05:35 INR 1.2 (0.9-1.2) 12/24/17 05:35 APTT 27.6 Seconds (25.6-37.1) 12/21/17 18:15 Assessment and Plan - Assessment and Plan (Free Text) Plan: - Start regular diet - Will follow
[2017-12-30] MEDS: Meropenem 1 GM in Sodium Chloride 0.9% 100 ML IVPB SCH ×2 (09:17→20:34)
--- NOTE | 2017-12-30 11:19 | CP.PCM.PN ---
Subjective - Date & Time of Evaluation Date of Evaluation: 12/30/17 Time of Evaluation: 11:00 - Subjective Subjective: Pt has no fever denies abd pain no output from fistula tolerated Clear Liquid diet no CP no SOB Objective - Vital Signs/Intake and Output Vital Signs (last 24 hours): Temp Pulse Resp BP Pulse Ox 98.4 F 92 H 20 127/77 94 L 12/30/17 08:05 12/30/17 08:05 12/30/17 08:05 12/30/17 08:05 12/30/17 08:05 Intake and Output: 12/30/17 12/30/17 06:59 18:59 Intake Total 600 Output Total 0 Balance 600 - Medications Medications: Current Medications Fat Emulsion Intravenous (Intralipid 20%) 250 ml IV MWF [facility] Metronidazole (Flagyl 500mg/100ml Ns) 100 mls @ 100 mls/hr IVPB Q8 [facility] PRN Reason: Protocol Last Admin: 12/30/17 09:16 Dose: 100 mls/hr Meropenem 1 gm/ Sodium (Chloride) 100 mls @ 100 mls/hr IVPB Q12 [facility]O PRN Reason: Protocol Last Admin: 12/30/17 09:17 Dose: 100 mls/hr Potassium Chloride 40 meq/Potassium Phosphate 11.25 mmole/ Magnesium Sulfate 8.1 meq/ Amino Acids 1,025.745 mls @ 35 mls/hr IV .Q24H ONE Stop: 12/30/17 12:59 Last Admin: 12/29/17 21:18 Dose: 35 mls/hr Insulin Human Regular (Humulin R) 0 units SC ACCU-CHECK ALFREDO PRN Reason: Protocol Last Admin: 12/30/17 06:00 Dose: Not Given Morphine Sulfate (Morphine) 1 mg IVP Q4 PRN PRN Reason: Pain, moderate (4-7) Last Admin: 12/23/17 23:48 Dose: 1 mg Morphine Sulfate (Morphine) 2 mg IVP Q4 PRN PRN Reason: Pain, severe (8-10) - Labs Labs: 12/30/17 05:20 12/30/17 05:20 PT 13.8 Seconds (9.8-13.1) H 12/24/17 05:35 INR 1.2 (0.9-1.2) 12/24/17 05:35 APTT 27.6 Seconds (25.6-37.1) 12/21/17 18:15 - Constitutional Appears: No Acute Distress, Chronically Ill - Head Exam Head Exam: NORMAL INSPECTION, NORMOCEPHALIC - Eye Exam Eye Exam: EOMI, Normal appearance Pupil Exam: NORMAL ACCOMODATION - ENT Exam ENT Exam: Mucous Membranes Dry, Normal External Ear Exam - Neck Exam Neck Exam: Full ROM. absent: Meningismus - Respiratory Exam Respiratory Exam: NORMAL BREATHING PATTERN. absent: Respiratory Distress - Cardiovascular Exam Cardiovascular Exam: REGULAR RHYTHM, +S1, +S2 - GI/Abdominal Exam GI & Abdominal Exam: Soft, Normal Bowel Sounds. absent: Tenderness Additional comments: Colostomy bag placed on abd wall fistula : minimal drainage - Extremities Exam Extremities Exam: Normal Capillary Refill. absent: Calf Tenderness, Pedal Edema - Back Exam Back Exam: absent: CVA tenderness (L), CVA tenderness (R) - Neurological Exam Neurological Exam: Alert, Oriented x3 - Psychiatric Exam Psychiatric exam: Normal Affect, Normal Mood - Skin Skin Exam: Dry, Normal Color, Warm Assessment and Plan - Assessment and Plan (Free Text) Assessment: 87 yo female with history of HTN and Arthritis presented with abdominal pain on 11/25/2017 and was found to have Cholelithiasis and cholecystitis. Patient had laparoscopic cholecystectomy and iatrogenic enterotomy. Patient was advised to go to [facility] or TCU for therapy and continuation of IV antibiotics but the family refused. She was treated with IV Zosyn during hospital stay and was sent home with PO Augmentin on 12/04/2016. 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 Patient was admitted , started on IV Zosyn and Flagyl , kept NPO ,surgery and ID consulted Surgery rec conservative mgt - NPO and TPN. 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 Pt was started on Liquid diet and is tolerating this w/o any drainage from fistula. Diet upgraded to Regular today. 1. Enterocutaneous Fistula hx of Enterotomy Wound c/s : Serratia Fistula output trending down and now barely has any output patient is afebrile with no WBC and no peritoneal signs On IV Meropenem and flagyl . ID recommended Meropenem at least 7-10 days continue output monitoring. Surgery is following pt - started Liquid diet and pt tolerated diet w/o any further drainage . Discussed with Dr Lawler - diet will be upgraded today to Regular , we will cont with TPN for now, if pt tolerates diet and no drainage - TPN will be d/c and pt can be d/c home tomorrow Continue TPN Monitor electrolytes daily 2. Acute blood loss anemia patient does not want blood transfusion Venofer IV x 3 doses given Hgb better 3. HTN BP stable monitor vitals 4. Hyperlipidemia hold while NPO 5. Acute Renal Insufficiency probably secondary to volume depletion improved w/ IVF hydration Crea 1.0 now from 1.9 6. Electrolyte abnormality /Hypokalemia/ hypomagnesemia/ hypophosphatemia added KCl , magnesium sulphate and Kphos in TPN monitor daily 7.DVT Prophylaxis Lovenox
[2017-12-30] MEDS ORDERED: Multivitamin (MVI) 10 ML, Chromium/Copper/Manganese/Zinc 3 ML in Amino/Dex E 4.25/25 10... IV ONE (15:00)
[2017-12-31] MEDS: metroNIDAZOLE 500mg/100ml NS 100 ML IVPB SCH ×3 (00:42→16:04)
[2017-12-31 07:02] LABS: BLOOD UREA NITROGEN 28 mg/dl (7-17); GFR AFRICAN-AMERICAN > 60; GFR NON-AFRICAN AMERICAN 53
[2017-12-31 07:03] LABS: CALCIUM 8.6 mg/dL (8.4-10.2)
[2017-12-31] MEDS: Insulin Regular 100 units/ml SC SCH ×4 (07:03→23:08)
--- NOTE | 2017-12-31 08:35 | CP.PCM.PN ---
<Twin Harper - Last Filed: 12/31/17 08:33> Subjective - Date & Time of Evaluation Date of Evaluation: 12/31/17 Time of Evaluation: 08:33 - Subjective Subjective: General Surgery: Dr Lawler Pt S&E. DAISHA. Denies pain. Tolerating regular diet. Denies N/V, F/C. No output from EC fistula. Objective - Vital Signs/Intake and Output Vital Signs (last 24 hours): Temp Pulse Resp BP Pulse Ox 97.7 F 92 H 20 120/72 98 12/31/17 07:54 12/31/17 07:54 12/31/17 07:54 12/31/17 07:54 12/31/17 07:54 - Medications Medications: Current Medications Fat Emulsion Intravenous (Intralipid 20%) 250 ml IV MWF [facility] Metronidazole (Flagyl 500mg/100ml Ns) 100 mls @ 100 mls/hr IVPB Q8 [facility] PRN Reason: Protocol Last Admin: 12/31/17 00:42 Dose: 100 mls/hr Meropenem 1 gm/ Sodium (Chloride) 100 mls @ 100 mls/hr IVPB Q12 [facility] PRN Reason: Protocol Last Admin: 12/30/17 20:34 Dose: 100 mls/hr Multivitamins/Vitamin C 10 ml/Chromium/Copper/Manganese/Zinc 3 ml/ Amino Acids/ Electrolytes/Dextrose 1,013 mls @ 30 mls/hr IV .Q24H ONE Stop: 12/31/17 14:59 Insulin Human Regular (Humulin R) 0 units SC ACCU-CHECK ALFREDO PRN Reason: Protocol Last Admin: 12/31/17 07:03 Dose: Not Given Morphine Sulfate (Morphine) 1 mg IVP Q4 PRN PRN Reason: Pain, moderate (4-7) Last Admin: 12/23/17 23:48 Dose: 1 mg Morphine Sulfate (Morphine) 2 mg IVP Q4 PRN PRN Reason: Pain, severe (8-10) - Labs Labs: 12/30/17 05:20 12/31/17 05:25 PT 13.8 Seconds (9.8-13.1) H 12/24/17 05:35 INR 1.2 (0.9-1.2) 12/24/17 05:35 APTT 27.6 Seconds (25.6-37.1) 12/21/17 18:15 - Constitutional Appears: Non-toxic, No Acute Distress - ENT Exam ENT Exam: Mucous Membranes Moist - Respiratory Exam Respiratory Exam: absent: Accessory Muscle Use, Respiratory Distress - Cardiovascular Exam Cardiovascular Exam: REGULAR RHYTHM. absent: Tachycardia - GI/Abdominal Exam GI & Abdominal Exam: Soft. absent: Distended, Firm, Guarding, Tenderness Assessment and Plan - Assessment and Plan (Free Text) Assessment: 87F w/ EC fistula Plan: cont reg diet can likely d/c TPN if fistula output is zero, but pt to be evaluated by surgical attending before final decision recs per attending to follow early this afternoon will d/w Dr Bucky Harper, PGY3 <Michael Lawler - Last Filed: 12/31/17 16:06> Subjective - Date & Time of Evaluation Time of Evaluation: 15:50 - Subjective Subjective: Patient was seen and examined at the bedside. Agree with resident's note above. Objective - Vital Signs/Intake and Output Vital Signs (last 24 hours): Temp Pulse Resp BP Pulse Ox 97.7 F 115 H 20 120/72 99 12/31/17 07:54 12/31/17 15:35 12/31/17 07:54 12/31/17 07:54 12/31/17 15:35 - Medications Medications: Current Medications Fat Emulsion Intravenous (Intralipid 20%) 250 ml IV MWF [facility] Metronidazole (Flagyl 500mg/100ml Ns) 100 mls @ 100 mls/hr IVPB Q8 [facility] PRN Reason: Protocol Last Admin: 12/31/17 08:53 Dose: 100 mls/hr Meropenem 1 gm/ Sodium (Chloride) 100 mls @ 100 mls/hr IVPB Q12 [facility]O PRN Reason: Protocol Last Admin: 12/31/17 08:53 Dose: 100 mls/hr Dextrose (Dextrose 5% In Water 1000 Ml) 1,000 mls @ 30 mls/hr IV .Q24H [facility] Stop: 01/01/18 11:12 Last Admin: 12/31/17 12:43 Dose: 30 mls/hr Insulin Human Regular (Humulin R) 0 units SC ACCU-CHECK ALFREDO PRN Reason: Protocol Last Admin: 12/31/17 12:43 Dose: Not Given Morphine Sulfate (Morphine) 1 mg IVP Q4 PRN PRN Reason: Pain, moderate (4-7) Last Admin: 12/23/17 23:48 Dose: 1 mg Morphine Sulfate (Morphine) 2 mg IVP Q4 PRN PRN Reason: Pain, severe (8-10) - Labs Labs: 12/30/17 05:20 12/31/17 05:25 PT 13.8 Seconds (9.8-13.1) H 12/24/17 05:35 INR 1.2 (0.9-1.2) 12/24/17 05:35 APTT 27.6 Seconds (25.6-37.1) 12/21/17 18:15 Assessment and Plan - Assessment and Plan (Free Text) Plan: - Continue regular diet - Stop TPN - Antibiotics as per ID - Patient is clear for discharge home from the general surgery stand point
[2017-12-31] MEDS: Meropenem 1 GM in Sodium Chloride 0.9% 100 ML IVPB SCH ×2 (08:53→20:35)
--- NOTE | 2017-12-31 12:27 | CP.PCM.PN ---
Subjective - Date & Time of Evaluation Date of Evaluation: 12/31/17 Time of Evaluation: 12:26 - Subjective Subjective: ID Note- Pt. seen and examined today. Pt. denies any abdominal pian and her abdominal wound is almost entirely closed. she denies any nausea. states she feels gas and has burping today. denies any diarrhea. Objective - Vital Signs/Intake and Output Vital Signs (last 24 hours): Temp Pulse Resp BP Pulse Ox 97.7 F 92 H 20 120/72 98 12/31/17 07:54 12/31/17 07:54 12/31/17 07:54 12/31/17 07:54 12/31/17 07:54 - Medications Medications: Current Medications Fat Emulsion Intravenous (Intralipid 20%) 250 ml IV MWF [facility] Metronidazole (Flagyl 500mg/100ml Ns) 100 mls @ 100 mls/hr IVPB Q8 ALFREDO PRN Reason: Protocol Last Admin: 12/31/17 08:53 Dose: 100 mls/hr Meropenem 1 gm/ Sodium (Chloride) 100 mls @ 100 mls/hr IVPB Q12 ALFREDO PRN Reason: Protocol Last Admin: 12/31/17 08:53 Dose: 100 mls/hr Multivitamins/Vitamin C 10 ml/Chromium/Copper/Manganese/Zinc 3 ml/ Amino Acids/ Electrolytes/Dextrose 1,013 mls @ 30 mls/hr IV .Q24H ONE Stop: 12/31/17 14:59 Dextrose (Dextrose 5% In Water 1000 Ml) 1,000 mls @ 30 mls/hr IV .Q24H [facility] Stop: 01/01/18 11:12 Insulin Human Regular (Humulin R) 0 units SC ACCU-CHECK ALFREDO PRN Reason: Protocol Last Admin: 12/31/17 07:03 Dose: Not Given Morphine Sulfate (Morphine) 1 mg IVP Q4 PRN PRN Reason: Pain, moderate (4-7) Last Admin: 12/23/17 23:48 Dose: 1 mg Morphine Sulfate (Morphine) 2 mg IVP Q4 PRN PRN Reason: Pain, severe (8-10) - Labs Labs: - Additional Findings Additional findings: - Constitutional Appears: Non-toxic, No Acute Distress - Head Exam Head Exam: ATRAUMATIC - Eye Exam Eye Exam: EOMI, PERRL - ENT Exam ENT Exam: Normal Oropharynx - Neck Exam Neck exam: Positive for: Full Rom - Respiratory Exam Respiratory Exam: Clear to Auscultation Bilateral, NORMAL BREATHING PATTERN - Cardiovascular Exam Cardiovascular Exam: RRR, +S1, +S2 - GI/Abdominal Exam GI & Abdominal Exam: Normal Bowel Sounds, Soft Additional comments: surgical site wound is almost entirely closed now, no longer has bag on ot. covered with small gauze only, no erythema, no swelling, no tenderness no distention no guarding, no rebound - Extremities Exam Extremities exam: Positive for: normal inspection - Neurological Exam Neurological exam: Alert, Oriented x 3 Laboratory Results - last 72 hr 12/28/17 12/29/17 12/29/17 21:27 05:44 11:26 WBC RBC Hgb Hct MCV MCH MCHC RDW Plt Count Sodium Potassium Chloride Carbon Dioxide Anion Gap BUN Creatinine Est GFR ( Amer) Est GFR (Non-Af Amer) POC Glucose (mg/dL) 110 125 H 123 H Random Glucose Calcium Phosphorus Magnesium Total Bilirubin AST ALT Alkaline Phosphatase Total Protein Albumin Globulin Albumin/Globulin Ratio Triglycerides 12/29/17 12/29/17 12/30/17 15:16 21:47 05:15 WBC RBC Hgb Hct MCV MCH MCHC RDW Plt Count Sodium Potassium Chloride Carbon Dioxide Anion Gap BUN Creatinine Est GFR ( Amer) Est GFR (Non-Af Amer) POC Glucose (mg/dL) 108 108 120 H Random Glucose Calcium Phosphorus Magnesium Total Bilirubin AST ALT Alkaline Phosphatase Total Protein Albumin Globulin Albumin/Globulin Ratio Triglycerides 12/30/17 12/30/17 12/30/17 05:20 05:20 11:31 WBC 6.6 RBC 2.81 L Hgb 9.1 L Hct 27.2 L MCV 96.7 MCH 32.4 H MCHC 33.5 RDW 13.6 Plt Count 169 Sodium 139 Potassium 4.5 Chloride 101 Carbon Dioxide 24 Anion Gap 19 BUN 22 H Creatinine 1.0 Est GFR ( Amer) > 60 Est GFR (Non-Af Amer) 53 POC Glucose (mg/dL) 100 Random Glucose 122 H Calcium 8.6 Phosphorus 2.4 L Magnesium 2.1 Total Bilirubin 0.3 AST 28 ALT 43 Alkaline Phosphatase 78 Total Protein 6.6 Albumin 3.1 L Globulin 3.5 Albumin/Globulin Ratio 0.9 L Triglycerides 323 H D 12/30/17 12/30/17 12/31/17 15:44 21:18 05:25 WBC RBC Hgb Hct MCV MCH MCHC RDW Plt Count Sodium 138 Potassium 4.7 Chloride 102 Carbon Dioxide 24 Anion Gap 17 BUN 28 H Creatinine 1.0 Est GFR ( Amer) > 60 Est GFR (Non-Af Amer) 53 POC Glucose (mg/dL) 122 H 105 Random Glucose 120 H Calcium 8.6 Phosphorus Magnesium Total Bilirubin AST ALT Alkaline Phosphatase Total Protein Albumin Globulin Albumin/Globulin Ratio Triglycerides 12/31/17 12/31/17 12/31/17 05:38 10:56 15:31 WBC RBC Hgb Hct MCV MCH MCHC RDW Plt Count Sodium Potassium Chloride Carbon Dioxide Anion Gap BUN Creatinine Est GFR ( Amer) Est GFR (Non-Af Amer) POC Glucose (mg/dL) 105 120 H 98 Random Glucose Calcium Phosphorus Magnesium Total Bilirubin AST ALT Alkaline Phosphatase Total Protein Albumin Globulin Albumin/Globulin Ratio Triglycerides Microbiology 12/21/17 18:15 Blood-Venous Blood Culture - Final NO GROWTH AFTER 5 DAYS 12/21/17 18:15 Blood-Venous Gram Stain - Final TEST NOT PERFORMED 12/21/17 23:50 Drainage Gram Stain - Final 12/21/17 23:50 Drainage Wound Culture - Final Serratia Liquefaciens Assessment and Plan (1) Enterocutaneous fistula Status: Acute (2) Postoperative wound infection Status: Acute (3) S/P laparoscopic cholecystectomy Status: Acute - Assessment and Plan (Free Text) Assessment: A/P- 87 year old female with HTN s/p recent lap cholecystectomy and Iatrogenic enterotomy 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 remains afebrile has normal wbc count fluid cx draing from the enterocutaneous fistula- serratia Liquefaciens blood cx- neg x 3 surgical open wound site now is closed and not draining. plan- had received 3 days of IV zosyn and flagyl. based on the fluid cx results and MEAGHAN sensitivity switched abx to meropenem , day #7 today. since the wound from fistula has closed and pt. does not have any drainage anymore , advise to d/c Iv antibiotics today. all above d/w patient and her nurse was also notified.
--- NOTE | 2017-12-31 16:22 | CP.PCM.PN ---
Subjective - Date & Time of Evaluation Date of Evaluation: 12/31/17 Time of Evaluation: 12:00 - Subjective Subjective: Patient seen and examined at bedside. States she feels weak but denies fever or chills. c/o some bloating but denies any abdominal pain. Ambulatory. Now tolerating regular diet. Objective - Vital Signs/Intake and Output Vital Signs (last 24 hours): Temp Pulse Resp BP Pulse Ox 97.8 F 115 H 20 126/84 99 12/31/17 16:04 12/31/17 16:04 12/31/17 16:04 12/31/17 16:04 12/31/17 16:04 - Medications Medications: Current Medications Metronidazole (Flagyl 500mg/100ml Ns) 100 mls @ 100 mls/hr IVPB Q8 ALFREDO PRN Reason: Protocol Last Admin: 12/31/17 16:04 Dose: 100 mls/hr Meropenem 1 gm/ Sodium (Chloride) 100 mls @ 100 mls/hr IVPB Q12 ALFREDO PRN Reason: Protocol Last Admin: 12/31/17 08:53 Dose: 100 mls/hr Dextrose (Dextrose 5% In Water 1000 Ml) 1,000 mls @ 30 mls/hr IV .Q24H [facility] Stop: 01/01/18 11:12 Last Admin: 12/31/17 12:43 Dose: 30 mls/hr Insulin Human Regular (Humulin R) 0 units SC ACCU-CHECK ALFREDO PRN Reason: Protocol Last Admin: 12/31/17 16:05 Dose: Not Given Metoprolol Succinate (Toprol Xl) 50 mg PO DAILY [facility] Morphine Sulfate (Morphine) 1 mg IVP Q4 PRN PRN Reason: Pain, moderate (4-7) Last Admin: 12/23/17 23:48 Dose: 1 mg Morphine Sulfate (Morphine) 2 mg IVP Q4 PRN PRN Reason: Pain, severe (8-10) Pantoprazole Sodium (Protonix Ec Tab) 40 mg PO DAILY [facility] - Labs Labs: 12/30/17 05:20 12/31/17 05:25 PT 13.8 Seconds (9.8-13.1) H 12/24/17 05:35 INR 1.2 (0.9-1.2) 12/24/17 05:35 APTT 27.6 Seconds (25.6-37.1) 12/21/17 18:15 - Additional Findings Additional findings: Physical exam: Constitutional- cooperative, awake, alert Head- NCAT, PERRL Eye- PERRL, EOMI ENT- normal exam, MMM. Neck- normal inspection, supple, no JVD Respiratory- CTAB, no wheezes rales rhonchi Cardiovascular- RRR, +S1, +S2 no MRG GI/Abdominal- normal bowel sounds, soft, no mass, no hsm. bandage over fistula site c/d/i. Skin- warm, dry Extremities Exam- normal capillary refill, normal inspection Neurological Exam- alert, awake, oriented Psych- normal mood, normal affect Assessment and Plan - Assessment and Plan (Free Text) Plan: 87 yo female with history of HTN and Arthritis presented with abdominal pain on 11/25/2017 and was found to have Cholelithiasis and cholecystitis. Patient had laparoscopic cholecystectomy and iatrogenic enterotomy. Patient was advised to go to [facility] or TCU for therapy and continuation of IV antibiotics but the family refused. She was treated with IV Zosyn during hospital stay and was sent home with PO Augmentin on 12/04/2016. 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 Patient was admitted , started on IV Zosyn and Flagyl , kept NPO ,surgery and ID consulted Surgery rec conservative mgt - NPO and TPN. 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 Pt was started on Liquid diet and is tolerating this w/o any drainage from fistula. Diet upgraded to Regular yesterday and is tolerating this. Pt c/o some bloating however. 1. Enterocutaneous Fistula hx of Enterotomy Wound c/s : Serratia Fistula output trending down with no output today patient is afebrile with no WBC and no peritoneal signs On IV Meropenem and flagyl . ID recommended Meropenem at least 7-10 days continue output monitoring. Surgery is following pt - started Liquid diet and pt tolerated diet w/o any further drainage . Discussed with Dr Lawler - diet will be upgraded today to Regular , TPN discontinued Continue IV antibiotics for 1 more day For d/c in AM 2. Acute blood loss anemia patient does not want blood transfusion Venofer IV x 3 doses given Hgb better 3. HTN BP stable monitor vitals restart home metoprolol 4. Hyperlipidemia Restart home statin 5. Acute Renal Insufficiency probably secondary to volume depletion improved w/ IVF hydration Crea 1.0 now from 1.9 6. Electrolyte abnormality /Hypokalemia/ hypomagnesemia/ hypophosphatemia - resolved after repletion 7.DVT Prophylaxis Lovenox
[2018-01-01] MEDS: Insulin Regular 100 units/ml SC SCH ×2 (07:08→11:59)
[2018-01-01] MEDS ORDERED: Metoprolol Succinate 50 mg XL Tab PO SCH ×2 (09:00)
[2018-01-01] MEDS ORDERED: Pantoprazole 40 mg EC Tab PO SCH (09:00)
--- NOTE | 2018-01-01 11:58 | CP.PCM.PN ---
<Carlota Colindres - Last Filed: 01/01/18 12:01> Subjective - Date & Time of Evaluation Date of Evaluation: 01/01/18 Time of Evaluation: 10:30 - Subjective Subjective: General Surgery Dr. Lawler Pt S&E @bedside. NAEO. pt has no complaints. denies F/C, N/V. Nursing reports some mid-abdominal drainage from fistula. Pt tolerating regular diet. Objective - Vital Signs/Intake and Output Vital Signs (last 24 hours): Temp Pulse Resp BP Pulse Ox 98.0 F 78 20 123/77 97 01/01/18 07:50 01/01/18 09:02 01/01/18 07:50 01/01/18 09:02 01/01/18 07:50 - Medications Medications: Current Medications Insulin Human Regular (Humulin R) 0 units SC ACCU-CHECK [facility] PRN Reason: Protocol Last Admin: 01/01/18 07:08 Dose: Not Given Metoprolol Succinate (Toprol Xl) 50 mg PO DAILY [facility] Last Admin: 01/01/18 09:02 Dose: 50 mg Morphine Sulfate (Morphine) 1 mg IVP Q4 PRN PRN Reason: Pain, moderate (4-7) Last Admin: 12/23/17 23:48 Dose: 1 mg Morphine Sulfate (Morphine) 2 mg IVP Q4 PRN PRN Reason: Pain, severe (8-10) Pantoprazole Sodium (Protonix Ec Tab) 40 mg PO DAILY [facility] Last Admin: 01/01/18 09:02 Dose: 40 mg - Labs Labs: 12/30/17 05:20 12/31/17 05:25 PT 13.8 Seconds (9.8-13.1) H 12/24/17 05:35 INR 1.2 (0.9-1.2) 12/24/17 05:35 APTT 27.6 Seconds (25.6-37.1) 12/21/17 18:15 - Constitutional Appears: Non-toxic, No Acute Distress - Head Exam Head Exam: NORMAL INSPECTION - Eye Exam Eye Exam: Normal appearance - ENT Exam ENT Exam: Mucous Membranes Moist - Respiratory Exam Respiratory Exam: NORMAL BREATHING PATTERN. absent: Accessory Muscle Use, Respiratory Distress - GI/Abdominal Exam GI & Abdominal Exam: Soft. absent: Distended, Tenderness, Rebound Additional comments: scant drainage present on abd dressing - Extremities Exam Extremities Exam: Normal Inspection - Neurological Exam Neurological Exam: Alert, Awake, Oriented x3 - Psychiatric Exam Psychiatric exam: Normal Affect, Normal Mood - Skin Skin Exam: Dry, Warm Assessment and Plan - Assessment and Plan (Free Text) Assessment: 87 y/o F w/ improved entercutaneous fistula - ADAT - change abd dressing as needed - cleared for discharge from surgical standpoint - Pt should follow up w/ Dr. Lawler in office in 1 week Pt discussed w/ Dr. Lawler <Michael Lawler - Last Filed: 01/01/18 12:06> Subjective - Date & Time of Evaluation Time of Evaluation: 11:35 - Subjective Subjective: Patient was seen and examined at the bedside. Agree with resident's note above. Objective - Vital Signs/Intake and Output Vital Signs (last 24 hours): Temp Pulse Resp BP Pulse Ox 98.0 F 78 20 123/77 97 01/01/18 07:50 01/01/18 09:02 01/01/18 07:50 01/01/18 09:02 01/01/18 07:50 - Medications Medications: Current Medications Insulin Human Regular (Humulin R) 0 units SC ACCU-CHECK [facility] PRN Reason: Protocol Last Admin: 01/01/18 11:59 Dose: Not Given Metoprolol Succinate (Toprol Xl) 50 mg PO DAILY [facility] Last Admin: 01/01/18 09:02 Dose: 50 mg Morphine Sulfate (Morphine) 1 mg IVP Q4 PRN PRN Reason: Pain, moderate (4-7) Last Admin: 12/23/17 23:48 Dose: 1 mg Morphine Sulfate (Morphine) 2 mg IVP Q4 PRN PRN Reason: Pain, severe (8-10) Pantoprazole Sodium (Protonix Ec Tab) 40 mg PO DAILY [facility] Last Admin: 01/01/18 09:02 Dose: 40 mg - Labs Labs: 12/30/17 05:20 12/31/17 05:25 PT 13.8 Seconds (9.8-13.1) H 12/24/17 05:35 INR 1.2 (0.9-1.2) 12/24/17 05:35 APTT 27.6 Seconds (25.6-37.1) 12/21/17 18:15
[2018-01-01 16:00] VITALS: BP 123/77; PULSE 78; RESP 20; TEMP 98; O2SAT 97
--- NOTE | 2018-01-01 19:08 | CP.PCM.DIS ---
Provider - Provider Date of Admission: 12/21/17 18:37 Attending physician: Marshal Huff MD Primary care physician: Dr. Alejandra Consults: Dr. Bucky Doshi Time Spent in preparation of Discharge (in minutes): 25 Hospital Course - Lab Results Lab Results: Micro Results 12/21/17 18:15 Blood-Venous Blood Culture - Final NO GROWTH AFTER 5 DAYS 12/21/17 18:15 Blood-Venous Gram Stain - Final TEST NOT PERFORMED 12/21/17 23:50 Drainage Gram Stain - Final 12/21/17 23:50 Drainage Wound Culture - Final Serratia Liquefaciens Most Recent Lab Values WBC 6.6 K/uL (4.8-10.8) 12/30/17 05:20 RBC 2.81 Mil/uL (3.80-5.20) L 12/30/17 05:20 Hgb 9.1 g/dL (12.0-16.0) L 12/30/17 05:20 Hct 27.2 % (34.0-47.0) L 12/30/17 05:20 MCV 96.7 fl (81.0-99.0) 12/30/17 05:20 MCH 32.4 pg (27.0-31.0) H 12/30/17 05:20 MCHC 33.5 g/dL (33.0-37.0) 12/30/17 05:20 RDW 13.6 % (11.5-14.5) 12/30/17 05:20 Plt Count 169 K/uL (130-400) 12/30/17 05:20 MPV 7.5 fl (7.2-11.7) 12/25/17 08:56 Neut % (Auto) 80.0 % (50.0-75.0) H 12/25/17 08:56 Lymph % (Auto) 9.5 % (20.0-40.0) L 12/25/17 08:56 [place] % (Auto) 8.7 % (0.0-10.0) 12/25/17 08:56 Eos % (Auto) 1.2 % (0.0-4.0) 12/25/17 08:56 Baso % (Auto) 0.6 % (0.0-2.0) 12/25/17 08:56 Neut # (Auto) 4.8 K/uL (1.8-7.0) 12/25/17 08:56 Lymph # (Auto) 0.6 K/uL (1.0-4.3) L 12/25/17 08:56 [place] # (Auto) 0.5 K/uL (0.0-0.8) 12/25/17 08:56 Eos # (Auto) 0.1 K/uL (0.0-0.7) 12/25/17 08:56 Baso # (Auto) 0.0 K/uL (0.0-0.2) 12/25/17 08:56 Neutrophils % (Manual) 81 % (42-75) H 12/25/17 08:56 Band Neutrophils % 1 % (0-2) 12/25/17 08:56 Lymphocytes % (Manual) 8 % (20-50) L 12/25/17 08:56 Monocytes % (Manual) 8 % (0-10) 12/25/17 08:56 Eosinophils % (Manual) 1 % (0-7) 12/25/17 08:56 Myelocytes % 1 % (0-0) H 12/25/17 08:56 Platelet Estimate Normal (NORMAL) 12/25/17 08:56 Hypochromasia (manual) Slight 12/25/17 08:56 Basophilic Stippling Slight 12/25/17 08:56 PT 13.8 Seconds (9.8-13.1) H 12/24/17 05:35 INR 1.2 (0.9-1.2) 12/24/17 05:35 APTT 27.6 Seconds (25.6-37.1) 12/21/17 18:15 Sodium 138 mmol/l (132-148) 12/31/17 05:25 Potassium 4.7 MMOL/L (3.6-5.0) 12/31/17 05:25 Chloride 102 mmol/L (98-107) 12/31/17 05:25 Carbon Dioxide 24 mmol/L (22-30) 12/31/17 05:25 Anion Gap 17 (10-20) 12/31/17 05:25 BUN 28 mg/dl (7-17) H 12/31/17 05:25 Creatinine 1.0 mg/dl (0.7-1.2) 12/31/17 05:25 Est GFR ( Amer) > 60 12/31/17 05:25 Est GFR (Non-Af Amer) 53 12/31/17 05:25 POC Glucose (mg/dL) 124 mg/dL (65-110) H 01/01/18 10:33 Random Glucose 120 mg/dL (65-105) H 12/31/17 05:25 Calcium 8.6 mg/dL (8.4-10.2) 12/31/17 05:25 Phosphorus 2.4 mg/dl (2.5-4.5) L 12/30/17 05:20 Magnesium 2.1 MG/DL (1.6-2.3) 12/30/17 05:20 Total Bilirubin 0.3 mg/dl (0.2-1.3) 12/30/17 05:20 AST 28 U/L (14-36) 12/30/17 05:20 ALT 43 U/L (9-52) 12/30/17 05:20 Alkaline Phosphatase 78 U/L (38-126) 12/30/17 05:20 Total Protein 6.6 G/DL (6.3-8.2) 12/30/17 05:20 Albumin 3.1 g/dL (3.5-5.0) L 12/30/17 05:20 Globulin 3.5 gm/dL (2.2-3.9) 12/30/17 05:20 Albumin/Globulin Ratio 0.9 (1.0-2.1) L 12/30/17 05:20 Triglycerides 323 mg/DL (0-149) H D 12/30/17 05:20 Cholesterol 123 mg/dL (0-199) 12/22/17 10:30 LDL Cholesterol Direct 64 mg/dL (0-129) 12/22/17 10:30 HDL Cholesterol 36 MG/DL (30-70) 12/22/17 10:30 Blood Type O POSITIVE 12/22/17 19:30 Antibody Screen Negative 12/22/17 19:30 Crossmatch See Detail 12/22/17 19:30 BBK History Checked Patient has bt 12/22/17 19:30 - Hospital Course Hospital Course: 87 yo female with history of HTN and Arthritis presented with abdominal pain on 11/25/2017 and was found to have Cholelithiasis and cholecystitis. Patient had laparoscopic cholecystectomy and iatrogenic enterotomy. Patient was advised to go to [facility] or TCU for therapy and continuation of IV antibiotics but the family refused. She was treated with IV Zosyn during hospital stay and was sent home with PO Augmentin on 12/04/2016. 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 Patient was admitted , started on IV Zosyn and Flagyl , kept NPO ,surgery and ID consulted Surgery rec conservative mgt - NPO and TPN. Wound cultures were reported as positive for Serratia Liquefaciens and antibiotics changed to Meropenem IV At present doing well, hemodynamically stable, afebrile Colostomy bag placed over enterocutaneous fistula for output monitoring and has had only scant discharge from fistula over the last 3 days. Pt was started on Liquid diet and is tolerating this w/o any drainage from fistula. Diet upgraded to Regular yesterday and only had scant drainage. As per Dr. Doshi - no further antibiotics necessary at this time. 1. Enterocutaneous Fistula hx of Enterotomy Wound c/s : Serratia Fistula output trending down with scant output patient is afebrile with no WBC and no peritoneal signs No further discharge as per Dr. Doshi Cleared by Dr. Lawler for discharge Patient to recieve wound care at home daily 2. Acute blood loss anemia patient does not want blood transfusion Venofer IV x 3 doses given Hgb better 3. HTN BP stable monitor vitals restart home metoprolol 4. Hyperlipidemia Restart home statin 5. Acute Renal Insufficiency probably secondary to volume depletion improved w/ IVF hydration Crea 1.0 now from 1.9 6. Electrolyte abnormality /Hypokalemia/ hypomagnesemia/ hypophosphatemia - resolved after repletion Discharge Exam - Head Exam Head Exam: NORMAL INSPECTION - Additional Findings Additional findings: Physical exam: Constitutional- cooperative, awake, alert Head- NCAT, PERRL Eye- PERRL, EOMI ENT- normal exam, MMM. Neck- normal inspection, supple, no JVD Respiratory- CTAB, no wheezes rales rhonchi Cardiovascular- RRR, +S1, +S2 no MRG GI/Abdominal- + Scant drainage from fistula site. normal bowel sounds, soft, no mass, no hsm Skin- warm, dry Extremities Exam- normal capillary refill, normal inspection Neurological Exam- alert, awake, oriented Psych- normal mood, normal affect Discharge Plan - Follow Up Plan Condition: STABLE Disposition: HOME/ ROUTINE Instructions: Wound Care (DC), Enterocutaneous Fistula (DC), Wound Infection, Acute Abdominal Pain (DC), Acute Abdominal Pain (GEN) Additional Instructions: follow up appointment with Dr. Lawler on saturdayJanuary 08 at 3:30pm Follow up with primary MD in 7-10 days. Referrals: Rai Doshi MD [Staff Provider] - Michael Lawler MD [Staff Provider] -
== END 2018-01-01 16:19 | disposition home or self-care (01) | DRG 863 ==
LOC: H.ER 16:57 → H.ERHOLD 18:37 → H.MEDSURG1 12-23 12:00
PROC: 02HV33Z Insertion of Infusion Device into Superior Vena Cava, Percutaneous Approach (ICD-10-PCS; principal; 2017-12-23)
PROC: 3E0436Z Introduction of Nutritional Substance into Central Vein, Percutaneous Approach (ICD-10-PCS; 2017-12-23)
DX: T81.4XXA Infection following a procedure, initial encounter (principal); T81.83XA Persistent postprocedural fistula, initial encounter; K63.2 Fistula of intestine; E86.9 Volume depletion, unspecified; E83.42 Hypomagnesemia; E83.39 Other disorders of phosphorus metabolism; D62 Acute posthemorrhagic anemia; I10 Essential (primary) hypertension; Z88.0 Allergy status to penicillin; E78.5 Hyperlipidemia, unspecified; N28.9 Disorder of kidney and ureter, unspecified; F32.9 Major depressive disorder, single episode, unspecified; R19.7 Diarrhea, unspecified; M19.90 Unspecified osteoarthritis, unspecified site; E78.00 Pure hypercholesterolemia, unspecified; Z93.3 Colostomy status; E87.6 Hypokalemia; Y83.6 Removal of other organ (partial) (total) as the cause of abnormal reaction of the patient, or of later complication, without mention of misadventure at the time of the procedure

== ENCOUNTER 2018-01-08 11:06 | Inpatient (IN) | payer MEDICARE, OTHER ==
[2018-01-08] MEDS ORDERED: Iohexol 240 (50 ml) PO ONE (12:30)
--- NOTE | 2018-01-08 12:41 | ED PDOC ---
HPI: General Adult Time Seen by Provider: 01/08/18 11:38 Chief Complaint (Nursing): Abdominal Pain History Per: Patient, Family (Charlie (Son)) Additional Complaint(s): Pt. presents to ED with abdominal pain, redness, and discharge coming from her surgical site. States she had a cholecystectomy done by Dr. Lawler on 11/25/2017 here in [facility] ED. Pt. has returned twice due to surgical site infections. Last dc 'd from the hospital on 12/31/2017. Pt. was dc'd on no antibiotics as infection completely healed. As per son (Charlie) pt. contacted him today and informed him that there was a lot of discharge coming from the wound site and that the area was reddened all of which started today. Denies fever, chest pain, SOB, palpitations. Last BM today was normal. Past Medical History Reviewed: Historical Data, Nursing Documentation, Vital Signs Vital Signs: Last Vital Signs Temp 98.8 F 01/08/18 17:19 Pulse 106 H 01/08/18 17:19 Resp 18 01/08/18 17:19 BP 132/58 L 01/08/18 17:19 Pulse Ox 98 01/08/18 18:08 - Medical History PMH: Arthritis, Depression, HTN, Hypercholesterolemia Denies: Chronic Kidney Disease - Surgical History Surgical History: Appendectomy, Cholecystectomy - Family History Family History: States: No Known Family Hx - Home Medications Home Medications: Ambulatory Orders Medication Instructions Recorded Metoprolol Succinate [Toprol XL] 50 mg PO DAILY 12/21/17 Pantoprazole [Protonix EC Tab] 40 mg PO DAILY 12/21/17 Bimatoprost [Lumigan] 1 drop EACHEYE HS 01/08/18 Simvastatin [Zocor] 20 mg PO HS 01/08/18 - Allergies Allergies/Adverse Reactions: Allergies Allergy/AdvReac Type Severity Reaction Status Date / Time Penicillins Allergy RASH Verified 01/08/18 11:56 Review of Systems ROS Statement: Except As Marked, All Systems Reviewed And Found Negative Gastrointestinal: Positive for: Abdominal Pain Physical Exam - Reviewed Nursing Documentation Reviewed: Yes Vital Signs Reviewed: Yes - Physical Exam Appears: Positive for: Well, Non-toxic, No Acute Distress Head Exam: Positive for: ATRAUMATIC, NORMAL INSPECTION, NORMOCEPHALIC Skin: Positive for: Normal Color, Warm. Negative for: Rash Eye Exam: Positive for: EOMI, Normal appearance, PERRL ENT: Positive for: Normal ENT Inspection Neck: Positive for: Normal, Painless ROM Cardiovascular/Chest: Positive for: Tachycardia. Negative for: Murmur Respiratory: Positive for: Normal Breath Sounds. Negative for: Respiratory Distress Gastrointestinal/Abdominal: Positive for: Normal Exam, Bowel Sounds, Soft, Tenderness (diffuse tenderness; surgical site wound moderate surrounding erythema and bilious discharge noted without odor coming from wound site). Negative for: Distended Back: Positive for: Normal Inspection Extremity: Positive for: Normal ROM Neurologic/Psych: Positive for: Alert, Oriented. Negative for: Aphasia, Facial Droop - Laboratory Results Result Diagrams: 01/08/18 12:40 01/08/18 12:40 - ECG O2 Sat by Pulse Oximetry: 98 - Progress ED Course And Treament: [address] Jones in ED. Case d/w Dr. Lawler who requests CT abd/pelvis w/ IV and PO contrast, consult with Tico Mcintyre, NPO, prealbumin. Labs ordered. CT abd/pelvis w/ PO and IV contrast ordered. Spoke with Dr. Sanchez, medical or surgical instrument maker, and informed that pt. is in ED and that he is aware of pt.'s case. Case d/w Tico, infectious disease, who will f/u with patient and requests cultures to be done and to hold off on antibiotics for now. 1330 Using Ethiopian screen printer helper #[id number] Pt. informed of Hgb and need for transfusion but refused. Labs also d/w Charlie (son) who also does not want blood transfusion to be done. Family and pt. both prefer to Venofer as pt.'s had an adverse reaction to blood transfusion. 1500 Iron low Venofer IV ordered. 1600 Case d/w Dr. Cronin, hospitalist, and arrangements made for admission. Disposition - Clinical Impression Clinical Impression: Severe anemia, Post op infection, Enterocutaneous fistula - Patient ED Disposition Is Patient to be Admitted: Yes - Disposition Disposition Time: 12:55 Condition: STABLE
[2018-01-08 12:44] LABS: VENOUS BLOOD GAS BASE EXCESS 3.2 mmol/L (0.0-2.0); VENOUS BLOOD GAS PCO2 53 mmHg (40-60); VENOUS BLOOD GAS PO2 14 mm/Hg (30-55); VENOUS BLOOD PH 7.36 (7.32-7.43)
[2018-01-08 12:53] LABS: BASO % 0.5 % (0.0-2.0); EOS # 0.1 K/uL (0.0-0.7); EOS % 0.9 % (0.0-4.0); HEMOGLOBIN 7.7 g/dL (12.0-16.0); INR 1.1 (0.9-1.2); LYMPH # 0.8 K/uL (1.0-4.3); LYMPH % 14.2 % (20.0-40.0); MEAN CELL VOLUME 96.2 fl (81.0-99.0); MEAN CORPUSCULAR HEMOGLOBIN 32.8 pg (27.0-31.0); MEAN CORPUSCULAR HGB CONC 34.1 g/dL (33.0-37.0); MEAN PLATELET VOLUME 7.9 fl (7.2-11.7); MONO # 0.6 K/uL (0.0-0.8); MONO % 10.6 % (0.0-10.0); NEUT # 4.3 K/uL (1.8-7.0); NEUT % 73.8 % (50.0-75.0); NRBC % 0.1 % (0.0-0.0); PARTIAL THROMBOPLASTIN TIME 26.4 Seconds (25.6-37.1); PROTHROMBIN TIME 11.7 Seconds (9.8-13.1); RBC 2.35 Mil/uL (3.80-5.20); RED CELL DISTRIBUTION WIDTH 14.4 % (11.5-14.5); WHITE BLOOD COUNT 5.8 K/uL (4.8-10.8)
[2018-01-08] MEDS ORDERED: Iohexol 240 (50 ml) ONE ×3 (13:00)
[2018-01-08 13:02] LABS: ALB/GLOB RATIO 0.9 (1.0-2.1); ALBUMIN 3.1 g/dL (3.5-5.0); CALCIUM 8.7 mg/dL (8.4-10.2)
[2018-01-08] MEDS ORDERED: Sodium Chloride 0.9% 1,000 ML IV STA (13:43)
--- NOTE | 2018-01-08 13:47 | CP.PCM.CON ---
History of Present Illness - History of Present Illness History of Present Illness: Infectious Disease Consultation Note- asked to see this patient at the request of for help with antibiotic management HPI- Patient known to me from her last recent admission here at [facility]. Patient is a pleasant 87 year old female with h/o HTN, s/p recent lap cholecystectomy s/p iatrogenic enterotomy who had developed enterocutaneous fistula and was admitted on 12/2017 and completed 7 days of IV meropnem to treat the serratia liquefaciens from wound cx and prior to that 3 days of Iv flagyl and zosyn and the wound site from the enterocutanepous fistula had closed and pt. was d/w home and as per pt. today she started to have opening on her skin again at the surgical site with a lot of greenish colored fluid discharghe. she denies any abdominal pain, denies any nausea or vomiting and denies nay diarrhea but she states she feels slight chills now. Review of Systems - Review of Systems Review of Systems: ROS- denies any fever, + chills, denies any REYNOLDS, denies any cough, denies any sob, denies any chest pain, denies any abd. pain, + green fluid discharge from the enterocutaneous fistula site in mid abdomen, no nausea, no vomiting, no dysurea , no diarrhea Past Patient History - Past Medical History & Family History Past Medical History?: Yes - Past Social History Smoking Status: Never Smoked Home Situation {Lives}: With Family - CARDIAC Hx Hypercholesterolemia: Yes Hx Hypertension: Yes - PULMONARY Hx Respiratory Disorders: No - NEUROLOGICAL Hx Neurological Disorder: No - HEENT Hx HEENT Problems: No - RENAL Hx Chronic Kidney Disease: No - ENDOCRINE/METABOLIC Hx Endocrine Disorders: No - HEMATOLOGICAL/ONCOLOGICAL Hx Blood Disorders: No - INTEGUMENTARY Hx Dermatological Problems: No - MUSCULOSKELETAL/RHEUMATOLOGICAL Hx Arthritis: Yes - GASTROINTESTINAL Hx Gastrointestinal Disorders: No - GENITOURINARY/GYNECOLOGICAL Hx Genitourinary Disorders: No - PSYCHIATRIC Hx Depression: Yes - SURGICAL HISTORY Hx Appendectomy: Yes Hx Cholecystectomy: Yes - ANESTHESIA Hx Anesthesia: Yes Hx Anesthesia Reactions: No Hx Malignant Hyperthermia: No Meds Allergies/Adverse Reactions: Allergies Allergy/AdvReac Type Severity Reaction Status Date / Time Penicillins Allergy RASH Verified 01/08/18 11:56 - Medications Medications: Current Medications Sodium Chloride (Sodium Chloride 0.9%) 1,000 mls @ 200 mls/hr IV .Q5H STA Stop: 01/08/18 18:42 Physical Exam - Constitutional Appears: No Acute Distress - Head Exam Head Exam: ATRAUMATIC - Eye Exam Eye Exam: EOMI, PERRL - ENT Exam ENT Exam: Normal Oropharynx - Neck Exam Neck exam: Positive for: Full Rom - Respiratory Exam Respiratory Exam: Clear to Auscultation Bilateral, NORMAL BREATHING PATTERN - Cardiovascular Exam Cardiovascular Exam: RRR, +S1, +S2 - GI/Abdominal Exam GI & Abdominal Exam: Normal Bowel Sounds, Soft Additional comments: NT, ND midabdminal area small opening with yello-green discharge, currently has colostomy bag covering it no surrounding erythema - Extremities Exam Extremities exam: Positive for: normal inspection Results - Vital Signs Recent Vital Signs: Last Vital Signs Temp 97.5 F L 01/08/18 11:16 Pulse 117 H 01/08/18 11:16 Resp 17 01/08/18 11:16 BP 104/58 L 01/08/18 11:16 Pulse Ox 98 01/08/18 13:41 - Labs Result Diagrams: 01/08/18 12:40 01/08/18 12:40 Labs: Laboratory Results - last 24 hr 01/08/18 01/08/18 01/08/18 12:30 12:35 12:40 WBC 5.8 RBC 2.35 L Hgb 7.7 L Hct 22.6 L MCV 96.2 MCH 32.8 H MCHC 34.1 RDW 14.4 Plt Count 262 MPV 7.9 Neut % (Auto) 73.8 Lymph % (Auto) 14.2 L [place] % (Auto) 10.6 H Eos % (Auto) 0.9 Baso % (Auto) 0.5 Neut # (Auto) 4.3 Lymph # (Auto) 0.8 L [place] # (Auto) 0.6 Eos # (Auto) 0.1 Baso # (Auto) 0.0 PT INR APTT pO2 14 L VBG pH 7.36 VBG pCO2 53 VBG HCO3 25.2 VBG Total CO2 31.5 H VBG O2 Sat (Calc) 23.5 L VBG Base Excess 3.2 H VBG Potassium 4.0 Sodium 136.0 Chloride 106.0 Glucose 117 H Lactate 1.1 FiO2 21.0 Potassium Carbon Dioxide Anion Gap BUN Creatinine Est GFR ( Amer) Est GFR (Non-Af Amer) Random Glucose Calcium Total Bilirubin AST ALT Alkaline Phosphatase Total Protein Albumin Globulin Albumin/Globulin Ratio Venous Blood Potassium 4.0 Blood Type O POSITIVE Antibody Screen Negative BBK History Checked Patient has bt 01/08/18 01/08/18 12:40 12:40 WBC RBC Hgb Hct MCV MCH MCHC RDW Plt Count MPV Neut % (Auto) Lymph % (Auto) [place] % (Auto) Eos % (Auto) Baso % (Auto) Neut # (Auto) Lymph # (Auto) [place] # (Auto) Eos # (Auto) Baso # (Auto) PT 11.7 INR 1.1 APTT 26.4 pO2 VBG pH VBG pCO2 VBG HCO3 VBG Total CO2 VBG O2 Sat (Calc) VBG Base Excess VBG Potassium Sodium 138 Chloride 99 Glucose Lactate FiO2 Potassium 4.3 Carbon Dioxide 28 Anion Gap 15 BUN 31 H Creatinine 1.4 H Est GFR ( Amer) 43 Est GFR (Non-Af Amer) 36 Random Glucose 115 H Calcium 8.7 Total Bilirubin 0.4 AST 22 ALT 31 Alkaline Phosphatase 62 Total Protein 6.7 Albumin 3.1 L Globulin 3.6 Albumin/Globulin Ratio 0.9 L Venous Blood Potassium Blood Type Antibody Screen BBK History Checked Microbiology 12/21/17 23:50 Drainage Gram Stain - Final 12/21/17 23:50 Drainage Wound Culture - Final Serratia Liquefaciens 12/21/17 18:15 Blood-Venous Blood Culture - Final 12/21/17 18:15 Blood-Venous Gram Stain - Final NO GROWTH AFTER 5 DAYS TEST NOT PERFORMED Assessment & Plan (1) Enterocutaneous fistula Status: Acute (2) S/P laparoscopic cholecystectomy Status: Acute - Assessment and Plan (Free Text) Assessment: A/P- 87 year old female s/p recent lap tyesha with subsequent enterocutaneous fistula formation with serratia growth from the wound cx from last admission last month and completed 10 days of IV antibiotics and wound opening had closed, who now presents to ED with opening again at site of the fistula in midabdomen with yellow -green discharge. afebrile normal wbc count not septic, however, sicne she has drainage from the enterocutaneous fistula would advise to send cx of the fluid. would also advise to resume IV meropnem ( which she tolerated well on last admission ) to cover for the serratia from last admission wound cx. check abd CT for further evaluation of the fistula . surgical rec follow up. All above d/w patient and she verbalizes full understanding of all above. Thank you for allowing me to take part in the care of this patient.
--- NOTE | 2018-01-08 14:00 | CP.PCM.CON ---
<Geovany Sims - Last Filed: 01/08/18 13:53> History of Present Illness - History of Present Illness History of Present Illness: SURGERY CONSULT NOTE FOR DR. 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 She states the drainage is a lot and looks like greenish material. She states he does not have much abdominal pain, admits to nausea, but denies vomiting. She has been having regular bowel movements. She denies fevers or chills. PMH: Arthritis, Depression, HTN, HLD PSH: Appendectomy, Lap cholecystectomy Social: Denies tobacco, alcohol, illicit drug Allergies: Penicillins Past Patient History - Past Medical History & Family History Past Medical History?: Yes - Past Social History Smoking Status: Never Smoked - CARDIAC Hx Hypercholesterolemia: Yes Hx Hypertension: Yes - PULMONARY Hx Respiratory Disorders: No - NEUROLOGICAL Hx Neurological Disorder: No - HEENT Hx HEENT Problems: No - RENAL Hx Chronic Kidney Disease: No - ENDOCRINE/METABOLIC Hx Endocrine Disorders: No - HEMATOLOGICAL/ONCOLOGICAL Hx Blood Disorders: No - INTEGUMENTARY Hx Dermatological Problems: No - MUSCULOSKELETAL/RHEUMATOLOGICAL Hx Arthritis: Yes - GASTROINTESTINAL Hx Gastrointestinal Disorders: No - GENITOURINARY/GYNECOLOGICAL Hx Genitourinary Disorders: No - PSYCHIATRIC Hx Depression: Yes - SURGICAL HISTORY Hx Appendectomy: Yes Hx Cholecystectomy: Yes - ANESTHESIA Hx Anesthesia: Yes Hx Anesthesia Reactions: No Hx Malignant Hyperthermia: No Meds Allergies/Adverse Reactions: Allergies Allergy/AdvReac Type Severity Reaction Status Date / Time Penicillins Allergy RASH Verified 01/08/18 11:56 - Medications Medications: Current Medications Sodium Chloride (Sodium Chloride 0.9%) 1,000 mls @ 200 mls/hr IV .Q5H STA Stop: 01/08/18 18:42 Last Admin: 01/08/18 13:50 Dose: 200 mls/hr Physical Exam - Constitutional Appears: Well, Non-toxic, No Acute Distress - Head Exam Head Exam: ATRAUMATIC - Eye Exam Eye Exam: EOMI, PERRL - ENT Exam ENT Exam: Mucous Membranes Moist - Respiratory Exam Respiratory Exam: Clear to Auscultation Bilateral, NORMAL BREATHING PATTERN - Cardiovascular Exam Cardiovascular Exam: REGULAR RHYTHM, +S1, +S2 - GI/Abdominal Exam GI & Abdominal Exam: Soft, Tenderness (very mildly tender in the area of erythema around the fistula). absent: Distended, Firm, Guarding, Rebound, Rigid Additional comments: approx 8*8cm area of erythema inferior to fistula with is located in the infraumbilical region, Fistula draining succus. Ostomy bag applied. - Neurological Exam Neurological exam: Alert, Oriented x3 - Psychiatric Exam Psychiatric exam: Anxious - Skin Skin Exam: Dry, Intact, Normal Color, Warm Additional comments: except the area in the infraumbilical region which is erythematous Results - Vital Signs Recent Vital Signs: Last Vital Signs Temp 97.5 F L 01/08/18 11:16 Pulse 117 H 01/08/18 11:16 Resp 17 01/08/18 11:16 BP 104/58 L 01/08/18 11:16 Pulse Ox 98 01/08/18 13:41 - Labs Result Diagrams: 01/08/18 12:40 01/08/18 12:40 Labs: Laboratory Results - last 24 hr 01/08/18 01/08/18 01/08/18 12:30 12:35 12:40 WBC 5.8 RBC 2.35 L Hgb 7.7 L Hct 22.6 L MCV 96.2 MCH 32.8 H MCHC 34.1 RDW 14.4 Plt Count 262 MPV 7.9 Neut % (Auto) 73.8 Lymph % (Auto) 14.2 L [place] % (Auto) 10.6 H Eos % (Auto) 0.9 Baso % (Auto) 0.5 Neut # (Auto) 4.3 Lymph # (Auto) 0.8 L [place] # (Auto) 0.6 Eos # (Auto) 0.1 Baso # (Auto) 0.0 PT INR APTT pO2 14 L VBG pH 7.36 VBG pCO2 53 VBG HCO3 25.2 VBG Total CO2 31.5 H VBG O2 Sat (Calc) 23.5 L VBG Base Excess 3.2 H VBG Potassium 4.0 Sodium 136.0 Chloride 106.0 Glucose 117 H Lactate 1.1 FiO2 21.0 Potassium Carbon Dioxide Anion Gap BUN Creatinine Est GFR ( Amer) Est GFR (Non-Af Amer) Random Glucose Calcium Total Bilirubin AST ALT Alkaline Phosphatase Total Protein Albumin Globulin Albumin/Globulin Ratio Venous Blood Potassium 4.0 Blood Type O POSITIVE Antibody Screen Negative BBK History Checked Patient has bt 01/08/18 01/08/18 12:40 12:40 WBC RBC Hgb Hct MCV MCH MCHC RDW Plt Count MPV Neut % (Auto) Lymph % (Auto) [place] % (Auto) Eos % (Auto) Baso % (Auto) Neut # (Auto) Lymph # (Auto) [place] # (Auto) Eos # (Auto) Baso # (Auto) PT 11.7 INR 1.1 APTT 26.4 pO2 VBG pH VBG pCO2 VBG HCO3 VBG Total CO2 VBG O2 Sat (Calc) VBG Base Excess VBG Potassium Sodium 138 Chloride 99 Glucose Lactate FiO2 Potassium 4.3 Carbon Dioxide 28 Anion Gap 15 BUN 31 H Creatinine 1.4 H Est GFR ( Amer) 43 Est GFR (Non-Af Amer) 36 Random Glucose 115 H Calcium 8.7 Total Bilirubin 0.4 AST 22 ALT 31 Alkaline Phosphatase 62 Total Protein 6.7 Albumin 3.1 L Globulin 3.6 Albumin/Globulin Ratio 0.9 L Venous Blood Potassium Blood Type Antibody Screen BBK History Checked Assessment & Plan - Assessment and Plan (Free Text) Assessment: 87F with enterocutaneous fistula Plan: f/u CT scan of abd/pelvis Ostomy bag applied to catch succus ID consult- ID following Patient will need blood transfusion - currently refusing consent Ostomy wound care nurse consult Discussed with Dr Bukcy Sims, PGY2 <Michael Lawler - Last Filed: 01/09/18 10:02> History of Present Illness - History of Present Illness History of Present Illness: Patient was seen and examined at the bedside. Agree with resident's note above Meds - Medications Medications: Current Medications Enoxaparin Sodium (Lovenox) 30 mg SC DAILY ALFREDO PRN Reason: Protocol Last Admin: 01/09/18 09:04 Dose: Not Given Iron Sucrose 100 mg/ Sodium (Chloride) 105 mls @ 100 mls/hr IVPB DAILY ALFREDO Last Admin: 01/08/18 16:12 Dose: 100 mls/hr Meropenem 1 gm/ Sodium (Chloride) 100 mls @ 100 mls/hr IVPB Q12 ALFREDO PRN Reason: Protocol Last Admin: 01/09/18 09:04 Dose: 100 mls/hr Sodium Chloride (Sodium Chloride 0.9%) 1,000 mls @ 125 mls/hr IV .Q8H ALFREDO Stop: 01/10/18 05:41 Last Admin: 01/09/18 09:06 Dose: 125 mls/hr Latanoprost (Xalatan Opht) 1 drop OU HS ALFREDO Last Admin: 01/08/18 22:05 Dose: 1 drop Ondansetron HCl (Zofran Inj) 4 mg IVP Q6 PRN PRN Reason: Nausea/Vomiting Results - Vital Signs Recent Vital Signs: Last Vital Signs Temp 97.8 F 01/09/18 08:00 Pulse 111 H 01/09/18 08:00 Resp 18 01/09/18 08:00 BP 146/73 01/09/18 08:00 Pulse Ox 93 L 01/09/18 08:00 - Labs Result Diagrams: 01/09/18 04:20 01/09/18 04:20 Labs: Laboratory Results - last 24 hr 01/08/18 01/08/18 01/08/18 12:30 12:35 12:40 WBC 5.8 RBC 2.35 L Hgb 7.7 L Hct 22.6 L MCV 96.2 MCH 32.8 H MCHC 34.1 RDW 14.4 Plt Count 262 MPV 7.9 Neut % (Auto) 73.8 Lymph % (Auto) 14.2 L [place] % (Auto) 10.6 H Eos % (Auto) 0.9 Baso % (Auto) 0.5 Neut # (Auto) 4.3 Lymph # (Auto) 0.8 L [place] # (Auto) 0.6 Eos # (Auto) 0.1 Baso # (Auto) 0.0 PT INR APTT pO2 14 L VBG pH 7.36 VBG pCO2 53 VBG HCO3 25.2 VBG Total CO2 31.5 H VBG O2 Sat (Calc) 23.5 L VBG Base Excess 3.2 H VBG Potassium 4.0 Sodium 136.0 Chloride 106.0 Glucose 117 H Lactate 1.1 FiO2 21.0 Potassium Carbon Dioxide Anion Gap BUN Creatinine Est GFR ( Amer) Est GFR (Non-Af Amer) Random Glucose Calcium Iron TIBC % Saturation Total Bilirubin AST ALT Alkaline Phosphatase Total Protein Albumin Globulin Albumin/Globulin Ratio Prealbumin Venous Blood Potassium 4.0 Urine Color Urine Clarity Urine pH Ur Specific [place] Urine Protein Urine Glucose (UA) Urine Ketones Urine Blood Urine Nitrate Urine Bilirubin Urine Urobilinogen Ur Leukocyte Esterase Urine RBC (Auto) Urine Microscopic WBC Ur Squamous Epith Cells Urine Bacteria Hyaline Casts Blood Type O POSITIVE Antibody Screen Negative BBK History Checked Patient has bt 01/08/18 01/08/18 01/08/18 12:40 12:40 13:02 WBC RBC Hgb Hct MCV MCH MCHC RDW Plt Count MPV Neut % (Auto) Lymph % (Auto) [place] % (Auto) Eos % (Auto) Baso % (Auto) Neut # (Auto) Lymph # (Auto) [place] # (Auto) Eos # (Auto) Baso # (Auto) PT 11.7 INR 1.1 APTT 26.4 pO2 VBG pH VBG pCO2 VBG HCO3 VBG Total CO2 VBG O2 Sat (Calc) VBG Base Excess VBG Potassium Sodium 138 Chloride 99 Glucose Lactate FiO2 Potassium 4.3 Carbon Dioxide 28 Anion Gap 15 BUN 31 H Creatinine 1.4 H Est GFR ( Amer) 43 Est GFR (Non-Af Amer) 36 Random Glucose 115 H Calcium 8.7 Iron TIBC % Saturation Total Bilirubin 0.4 AST 22 ALT 31 Alkaline Phosphatase 62 Total Protein 6.7 Albumin 3.1 L Globulin 3.6 Albumin/Globulin Ratio 0.9 L Prealbumin 12.4 L Venous Blood Potassium Urine Color Urine Clarity Urine pH Ur Specific [place] Urine Protein Urine Glucose (UA) Urine Ketones Urine Blood Urine Nitrate Urine Bilirubin Urine Urobilinogen Ur Leukocyte Esterase Urine RBC (Auto) Urine Microscopic WBC Ur Squamous Epith Cells Urine Bacteria Hyaline Casts Blood Type Antibody Screen BBK History Checked 01/08/18 01/08/18 01/09/18 14:26 14:27 04:20 WBC 4.8 RBC 2.31 L Hgb 7.5 L Hct 22.6 L MCV 97.8 MCH 32.7 H MCHC 33.4 RDW 14.8 H Plt Count 244 MPV Neut % (Auto) Lymph % (Auto) [place] % (Auto) Eos % (Auto) Baso % (Auto) Neut # (Auto) Lymph # (Auto) [place] # (Auto) Eos # (Auto) Baso # (Auto) PT INR APTT pO2 VBG pH VBG pCO2 VBG HCO3 VBG Total CO2 VBG O2 Sat (Calc) VBG Base Excess VBG Potassium Sodium Chloride Glucose Lactate FiO2 Potassium Carbon Dioxide Anion Gap BUN Creatinine Est GFR ( Amer) Est GFR (Non-Af Amer) Random Glucose Calcium Iron 16 L TIBC 197 L % Saturation 8 L Total Bilirubin AST ALT Alkaline Phosphatase Total Protein Albumin Globulin Albumin/Globulin Ratio Prealbumin Venous Blood Potassium Urine Color Yellow Urine Clarity Cloudy Urine pH 6.0 Ur Specific [place] 1.013 Urine Protein 100 Urine Glucose (UA) Neg Urine Ketones Negative Urine Blood Moderate Urine Nitrate Negative Urine Bilirubin Negative Urine Urobilinogen 0.2-1.0 Ur Leukocyte Esterase Large Urine RBC (Auto) 56 H Urine Microscopic WBC 200 H Ur Squamous Epith Cells 1 Urine Bacteria Occ H Hyaline Casts >20 H Blood Type Antibody Screen BBK History Checked 01/09/18 04:20 WBC RBC Hgb Hct MCV MCH MCHC RDW Plt Count MPV Neut % (Auto) Lymph % (Auto) [place] % (Auto) Eos % (Auto) Baso % (Auto) Neut # (Auto) Lymph # (Auto) [place] # (Auto) Eos # (Auto) Baso # (Auto) PT INR APTT pO2 VBG pH VBG pCO2 VBG HCO3 VBG Total CO2 VBG O2 Sat (Calc) VBG Base Excess VBG Potassium Sodium 143 Chloride 103 Glucose Lactate FiO2 Potassium 4.4 Carbon Dioxide 28 Anion Gap 16 BUN 21 H Creatinine 1.2 Est GFR ( Amer) 52 Est GFR (Non-Af Amer) 43 Random Glucose 110 H Calcium 8.3 L Iron TIBC % Saturation Total Bilirubin AST ALT Alkaline Phosphatase Total Protein Albumin Globulin Albumin/Globulin Ratio Prealbumin Venous Blood Potassium Urine Color Urine Clarity Urine pH Ur Specific [place] Urine Protein Urine Glucose (UA) Urine Ketones Urine Blood Urine Nitrate Urine Bilirubin Urine Urobilinogen Ur Leukocyte Esterase Urine RBC (Auto) Urine Microscopic WBC Ur Squamous Epith Cells Urine Bacteria Hyaline Casts Blood Type Antibody Screen BBK History Checked - Imaging and Cardiology CT scan - abdomen Status: Image reviewed by me, Report reviewed by me Assessment & Plan - Assessment and Plan (Free Text) Plan: - Keep NPO - IV fluids - Antibiotics as per ID - TPN - Strict recording of the fistula output - Repeat labs in am - Will follow
[2018-01-08 14:44] LABS: IRON 16 ug/dL (37-170)
[2018-01-08 14:51] LABS: SQUAMOUS EPITHIAL 1 /hpf (0-5); URINE BACTERIA OCC (<OCC); URINE BILIRUBIN NEGATIVE (NEGATIVE); URINE BLOOD MODERATE (NEGATIVE); URINE CLARITY CLOUDY (Clear); URINE COLOR YELLOW (YELLOW); URINE GLUCOSE (UA) NEG (Normal); URINE HYALINE CAST >20 /hpf (0-2); URINE LEUKOCYTE ESTERASE LARGE Leu/uL (Negative); URINE PROTEIN 100 mg/dL (NEGATIVE); URINE UROBILINOGEN 0.2-1.0 mg/dL (0.2-1.0)
[2018-01-08 14:53] LABS: % IRON SATURATION 8 % (20-55); TOTAL IRON BINDING CAPACITY 197 ug/dL (250-450)
--- NOTE | 2018-01-08 15:54 | CT ---
PROCEDURE: CT Abdomen and Pelvis with contrast HISTORY: RLQ wound site infection COMPARISON: Unenhanced abdomen and pelvis CT exam 12/21/2017. TECHNIQUE: Helical CT of the abdomen and pelvis was performed following oral contrast administration. Intravenous contrast was not administered as per referring physician request. Contrast dose: None Radiation dose: Total exam DLP = 958.94 mGy-cm. This CT exam was performed using one or more of the following dose reduction techniques: Automated exposure control, adjustment of the mA and/or kV according to patient size, and/or use of iterative reconstruction technique. FINDINGS: LOWER THORAX: Cardiomegaly reiterated as well as linear atelectasis or fibrosis right base. LIVER: Unremarkable. No gross lesion or ductal dilatation. GALLBLADDER AND BILE DUCTS: Reiteration of prior cholecystectomy. PANCREAS: Unremarkable. No gross lesion or ductal dilatation. SPLEEN: Unremarkable. ADRENALS: Unremarkable. No mass. KIDNEYS AND URETERS: 3.5 cm simple cyst lower pole right kidney again evident with both kidneys otherwise unremarkable and stable in appearance bilaterally. Unremarkable bilateral ureters in this unenhanced examination. VASCULATURE: Unremarkable. No aortic aneurysm. BOWEL: Examination remains Aspers formed enterocutaneous fistula which is well delineated by oral contrast material pooling at the distal segment of the fistula at the anterior abdominal wall and umbilical or periumbilical location. Further, sigmoid diverticular changes are reiterated with probable chronic local reaction in pericolic fat but no free air or definite abscess. No ascites. Clinically correlate further. Subcutaneous fatty changes seen throughout the colon which may reflect chronic inflammatory process such is inflow inflammatory bowel disease. APPENDIX: Not identified-no CT evidence to suggest appendicitis at this time. PERITONEUM: Unremarkable. No free fluid. No free air. LYMPH NODES: Unremarkable. No enlarged lymph nodes. BLADDER: Unremarkable. REPRODUCTIVE: Unremarkable. BONES: No acute fracture. OTHER FINDINGS: None. IMPRESSION: Reiteration of enterocutaneous fistula with a tract better delineated on the current examination, well delineated by oral contrast material including umbilicus or periumbilical abdominal wall deformity. Other lesser findings as discussed above.
[2018-01-08] MEDS ORDERED: Dextrose 5%/0.9% NS 1,000 ML IV ONE (16:42)
--- NOTE | 2018-01-08 16:59 | CP.PCM.HP ---
History of Present Illness - History of Present Illness History of Present Illness: This is a 87 yo female with a past medical history of arthritis and hypertension who was recently admitted to [facility] on 11/25/2017 and was found to have cholilithiases and cholecystitis. She then had lap tyesha and iatrogenic enterotomy. she was given IV antibiotics (Zosyn) and was then sent home with po augmentin on 12/04/2016. At home her surgical wound started draining some mucoid greenish material and she was advised to come in for evaluation by her surgeon. 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 Patient was admitted , started on IV Zosyn and Flagyl , kept NPO ,surgery and ID consulted At that time, surgery recommended conservative management with NPO, TPN, and IV antibiotics. Wound cultures were reported as positive for Serratia Liquefaciens and antibiotics changed to Meropenem IV. Patient's diet was upgraded to regular and she tolerated well and was sent home. Today, the patient comes back from home with the complaint of a large amount of greenish drainage again from the same site, and that the area was reddened, all of which started today. In the ED it was seen that her enterocutaneous fistula had again opened up as seen on CT scan. Dr. Lawler was consulted for surgery and Dr. Doshi, ID, evaluated patient and recommended to restart Merrem. Currently the patient is afebrile with stable vital signs and no white count. However her hemoglobin level is found to be 7.7. Family is refusing blood transfusion at this time; however after lengthy discussion with the daughter in law- she said the family may be amenable to blood tranfusion prior to a surgical procedure. The patient denies headache/fever/chills/n/v/d/headache/ lightheadedness. She is to be admitted for IV antibiotics and for further surgical evaluation. PMD: Dr. Alejandra Present on Admission - Present on Admission Any Indicators Present on Admission: No Review of Systems - Review of Systems Review of Systems: A 12 point review of systems was conducted and found to be negative other than what was mentioned in the HPI. Past Patient History - Past Medical History & Family History Past Medical History?: Yes - Past Social History Smoking Status: Never Smoked Home Situation {Lives}: With Family - CARDIAC Hx Hypercholesterolemia: Yes Hx Hypertension: Yes - PULMONARY Hx Respiratory Disorders: No - NEUROLOGICAL Hx Neurological Disorder: No - HEENT Hx HEENT Problems: No - RENAL Hx Chronic Kidney Disease: No - ENDOCRINE/METABOLIC Hx Endocrine Disorders: No - HEMATOLOGICAL/ONCOLOGICAL Hx Blood Disorders: No - INTEGUMENTARY Hx Dermatological Problems: No - MUSCULOSKELETAL/RHEUMATOLOGICAL Hx Arthritis: Yes - GASTROINTESTINAL Hx Gastrointestinal Disorders: No - GENITOURINARY/GYNECOLOGICAL Hx Genitourinary Disorders: No - PSYCHIATRIC Hx Depression: Yes - SURGICAL HISTORY Hx Appendectomy: Yes Hx Cholecystectomy: Yes - ANESTHESIA Hx Anesthesia: Yes Hx Anesthesia Reactions: No Hx Malignant Hyperthermia: No Meds Allergies/Adverse Reactions: Allergies Allergy/AdvReac Type Severity Reaction Status Date / Time Penicillins Allergy RASH Verified 01/08/18 11:56 Physical Exam - Additional Findings Additional findings: Physical exam: Constitutional- cooperative, awake, alert Head- NCAT, PERRL Eye- PERRL, EOMI ENT- normal exam, MMM. Neck- normal inspection, supple, no JVD Respiratory- CTAB, no wheezes rales rhonchi Cardiovascular- RRR, +S1, +S2 no MRG GI/Abdominal- + Midline enterocutaneous fistula draining large amount of light green fluid. normal bowel sounds, soft, no mass, no hsm Skin- warm, dry, pale appearing Extremities Exam- normal capillary refill, normal inspection Neurological Exam- alert, awake, oriented Psych- normal mood, normal affect Results - Vital Signs Recent Vital Signs: Last Vital Signs Temp 98 F 01/08/18 13:53 Pulse 102 H 01/08/18 13:53 Resp 18 01/08/18 13:53 BP 124/72 01/08/18 13:53 Pulse Ox 98 01/08/18 16:09 - Labs Result Diagrams: 01/08/18 12:40 01/08/18 12:40 Labs: Laboratory Results - last 24 hr 01/08/18 01/08/18 01/08/18 12:30 12:35 12:40 WBC 5.8 RBC 2.35 L Hgb 7.7 L Hct 22.6 L MCV 96.2 MCH 32.8 H MCHC 34.1 RDW 14.4 Plt Count 262 MPV 7.9 Neut % (Auto) 73.8 Lymph % (Auto) 14.2 L [place] % (Auto) 10.6 H Eos % (Auto) 0.9 Baso % (Auto) 0.5 Neut # (Auto) 4.3 Lymph # (Auto) 0.8 L [place] # (Auto) 0.6 Eos # (Auto) 0.1 Baso # (Auto) 0.0 PT INR APTT pO2 14 L VBG pH 7.36 VBG pCO2 53 VBG HCO3 25.2 VBG Total CO2 31.5 H VBG O2 Sat (Calc) 23.5 L VBG Base Excess 3.2 H VBG Potassium 4.0 Sodium 136.0 Chloride 106.0 Glucose 117 H Lactate 1.1 FiO2 21.0 Potassium Carbon Dioxide Anion Gap BUN Creatinine Est GFR ( Amer) Est GFR (Non-Af Amer) Random Glucose Calcium Iron TIBC % Saturation Total Bilirubin AST ALT Alkaline Phosphatase Total Protein Albumin Globulin Albumin/Globulin Ratio Venous Blood Potassium 4.0 Urine Color Urine Clarity Urine pH Ur Specific [place] Urine Protein Urine Glucose (UA) Urine Ketones Urine Blood Urine Nitrate Urine Bilirubin Urine Urobilinogen Ur Leukocyte Esterase Urine RBC (Auto) Urine Microscopic WBC Ur Squamous Epith Cells Urine Bacteria Hyaline Casts Blood Type O POSITIVE Antibody Screen Negative BBK History Checked Patient has bt 01/08/18 01/08/18 01/08/18 12:40 12:40 14:26 WBC RBC Hgb Hct MCV MCH MCHC RDW Plt Count MPV Neut % (Auto) Lymph % (Auto) [place] % (Auto) Eos % (Auto) Baso % (Auto) Neut # (Auto) Lymph # (Auto) [place] # (Auto) Eos # (Auto) Baso # (Auto) PT 11.7 INR 1.1 APTT 26.4 pO2 VBG pH VBG pCO2 VBG HCO3 VBG Total CO2 VBG O2 Sat (Calc) VBG Base Excess VBG Potassium Sodium 138 Chloride 99 Glucose Lactate FiO2 Potassium 4.3 Carbon Dioxide 28 Anion Gap 15 BUN 31 H Creatinine 1.4 H Est GFR ( Amer) 43 Est GFR (Non-Af Amer) 36 Random Glucose 115 H Calcium 8.7 Iron 16 L TIBC 197 L % Saturation 8 L Total Bilirubin 0.4 AST 22 ALT 31 Alkaline Phosphatase 62 Total Protein 6.7 Albumin 3.1 L Globulin 3.6 Albumin/Globulin Ratio 0.9 L Venous Blood Potassium Urine Color Urine Clarity Urine pH Ur Specific [place] Urine Protein Urine Glucose (UA) Urine Ketones Urine Blood Urine Nitrate Urine Bilirubin Urine Urobilinogen Ur Leukocyte Esterase Urine RBC (Auto) Urine Microscopic WBC Ur Squamous Epith Cells Urine Bacteria Hyaline Casts Blood Type Antibody Screen BBK History Checked 01/08/18 14:27 WBC RBC Hgb Hct MCV MCH MCHC RDW Plt Count MPV Neut % (Auto) Lymph % (Auto) [place] % (Auto) Eos % (Auto) Baso % (Auto) Neut # (Auto) Lymph # (Auto) [place] # (Auto) Eos # (Auto) Baso # (Auto) PT INR APTT pO2 VBG pH VBG pCO2 VBG HCO3 VBG Total CO2 VBG O2 Sat (Calc) VBG Base Excess VBG Potassium Sodium Chloride Glucose Lactate FiO2 Potassium Carbon Dioxide Anion Gap BUN Creatinine Est GFR ( Amer) Est GFR (Non-Af Amer) Random Glucose Calcium Iron TIBC % Saturation Total Bilirubin AST ALT Alkaline Phosphatase Total Protein Albumin Globulin Albumin/Globulin Ratio Venous Blood Potassium Urine Color Yellow Urine Clarity Cloudy Urine pH 6.0 Ur Specific [place] 1.013 Urine Protein 100 Urine Glucose (UA) Neg Urine Ketones Negative Urine Blood Moderate Urine Nitrate Negative Urine Bilirubin Negative Urine Urobilinogen 0.2-1.0 Ur Leukocyte Esterase Large Urine RBC (Auto) 56 H Urine Microscopic WBC 200 H Ur Squamous Epith Cells 1 Urine Bacteria Occ H Hyaline Casts >20 H Blood Type Antibody Screen BBK History Checked Assessment & Plan - Assessment and Plan (Free Text) Plan: ASSESSMENT/PLAN 1. Enterocutaneous Fistula, large amount of drainage hx of Enterotomy Wound c/s : Serratia patient is afebrile with no WBC and no peritoneal signs Consult Dr. Doshi- recommends restarting Merepenem Consult Dr. Lawler- will follow up for recommendations/plans Patient to recieve wound/ostomy care continue IV fluids, D5 NS at 100 cc/hour after normal saline given in ED 2. 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 Asymptomatic bacteriuria - No complaints of dysuria or alterations in mentation - Afebrile, no leukocytosis - possible colonziation - Patient already covered with Merepenem - ID on consult - f/u with UCX 3. HTN BP stable monitor vitals Hold metoprolol due to total NPO status 4. Hyperlipidemia Hold statin for now due to total NPO status 5. Acute Renal Insufficiency probably secondary to volume depletion IV hydration Crea 1.4 was 1.0 on previous admission 6. DVT prophylaxis - Lovenox 30 mg sc
[2018-01-08] MEDS: Meropenem 1 GM in Sodium Chloride 0.9% 100 ML IVPB SCH (22:03)
[2018-01-08] MEDS: Latanoprost 0.005% Opht SOUTION OU SCH (22:05)
[2018-01-09 05:44] LABS: HEMOGLOBIN 7.5 g/dL (12.0-16.0); MEAN CELL VOLUME 97.8 fl (81.0-99.0); MEAN CORPUSCULAR HEMOGLOBIN 32.7 pg (27.0-31.0); MEAN CORPUSCULAR HGB CONC 33.4 g/dL (33.0-37.0); RBC 2.31 Mil/uL (3.80-5.20); RED CELL DISTRIBUTION WIDTH 14.8 % (11.5-14.5); WHITE BLOOD COUNT 4.8 K/uL (4.8-10.8)
[2018-01-09] MEDS ORDERED: Sodium Chloride 0.9% 1,000 ML IV SCH (05:45)
[2018-01-09 06:15] LABS: CALCIUM 8.3 mg/dL (8.4-10.2)
--- NOTE | 2018-01-09 07:44 | CARD ---
APPROVED REPORT EKG Measurement Heart [id number] <Conclusion> Normal sinus rhythm Minimal voltage criteria for LVH, may be normal variant Borderline ECG
--- NOTE | 2018-01-09 08:08 | CP.PCM.PN ---
Subjective - Date & Time of Evaluation Date of Evaluation: 01/09/18 Time of Evaluation: 08:00 - Subjective Subjective: Patient seen and examined bedside.Elderly female of stated age, appearing pale and anxious.Complains of drainage from mid abdomen enterocutaneus fistula , bilious output with erythem aover the surrounding tissue and discomfort Feeling weak with no energy Denies any CP or SOB , abdominal pain , diarrhea, urinary symptoms Objective - Vital Signs/Intake and Output Vital Signs (last 24 hours): Temp Pulse Resp BP Pulse Ox 98 F 100 H 18 145/74 97 01/09/18 05:23 01/09/18 05:23 01/09/18 05:23 01/09/18 05:23 01/09/18 05:23 - Medications Medications: Current Medications Enoxaparin Sodium (Lovenox) 30 mg SC DAILY [facility] PRN Reason: Protocol Iron Sucrose 100 mg/ Sodium (Chloride) 105 mls @ 100 mls/hr IVPB DAILY [facility] Last Admin: 01/08/18 16:12 Dose: 100 mls/hr Meropenem 1 gm/ Sodium (Chloride) 100 mls @ 100 mls/hr IVPB Q12 [facility] PRN Reason: Protocol Last Admin: 01/08/18 22:03 Dose: 100 mls/hr Sodium Chloride (Sodium Chloride 0.9%) 1,000 mls @ 125 mls/hr IV .Q8H [facility] Stop: 01/10/18 05:41 Latanoprost (Xalatan Opht) 1 drop OU HS [facility] Last Admin: 01/08/18 22:05 Dose: 1 drop Ondansetron HCl (Zofran Inj) 4 mg IVP Q6 PRN PRN Reason: Nausea/Vomiting - Labs Labs: 01/09/18 04:20 01/09/18 04:20 PT 11.7 Seconds (9.8-13.1) 01/08/18 12:40 INR 1.1 (0.9-1.2) 01/08/18 12:40 APTT 26.4 Seconds (25.6-37.1) 01/08/18 12:40 - Constitutional Appears: Non-toxic, Toxic - Head Exam Head Exam: ATRAUMATIC, NORMAL INSPECTION, NORMOCEPHALIC - Eye Exam Eye Exam: EOMI, Normal appearance, PERRL Pupil Exam: NORMAL ACCOMODATION - ENT Exam ENT Exam: Mucous Membranes Moist, Normal Exam - Neck Exam Neck Exam: Full ROM, Normal Inspection - Respiratory Exam Respiratory Exam: Clear to Ausculation Bilateral, NORMAL BREATHING PATTERN. absent: Rhonchi, Wheezes, Respiratory Distress - Cardiovascular Exam Cardiovascular Exam: REGULAR RHYTHM, RRR, +S1, +S2. absent: JVD - GI/Abdominal Exam GI & Abdominal Exam: Soft, Normal Bowel Sounds. 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 absent : Pedal Edema - Back Exam Back Exam: NORMAL INSPECTION - Neurological Exam Neurological Exam: Alert, Awake, CN II-XII Intact, Oriented x3 - Psychiatric Exam Psychiatric exam: Anxious, Flat Affect - Skin Skin Exam: Dry, Pallor, Warm Assessment and Plan - Assessment and Plan (Free Text) Assessment: 87 yo female with a past medical history of arthritis and hypertension was recently admitted to [facility] on 11/25/2017 and was found to have cholilithiases and cholecystitis. She then had lap tyesha and iatrogenic enterotomy. She was given IV antibiotics (Zosyn) and was then sent home with po augmentin on 12/04/2016. At home her surgical wound started draining some mucoid greenish material and she was advised to come in for evaluation by her surgeon. 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 Patient was admitted , started on IV Zosyn and Flagyl , kept NPO ,surgery and ID consulted At that time, surgery recommended conservative management with NPO, TPN, and IV antibiotics. Wound cultures were reported as positive for Serratia Liquefaciens and antibiotics changed to Meropenem IV. Patient's diet was upgraded to regular and she tolerated well and was sent home.Today returns with drainage from fistula again. CT abdomen showed enterocutaneous fistula with a tract better delineated on the current examination, well delineated by oral contrast material including umbilicus or periumbilical abdominal wall deformity. Admitted and started on IVF and IV meropenem 1. Enterocutaneous Fistula, large amount of drainage Surgery consulted and case discussed with Dr. Lawler. will continue conservative treatment for 1 week.Keep patient NPO and continue IVF Will place PICC line and start TPN ID consulted . Started on Meropenem IV Wound c/s from last admission [place] patient is afebrile with no WBC and no peritoneal signs 2. 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 Asymptomatic bacteriuria Denies any dysuria or frequency Continue meropenem empirically Follow up cultures 3. HTN BP stable monitor vitals Hold metoprolol due to total NPO status 4. Hyperlipidemia Hold statin for now due to total NPO status 5. Acute Renal Insufficiency probably secondary to volume depletion Continue IV hydration Cr 1.2 today 6. DVT prophylaxis Lovenox 30 mg sc
[2018-01-09] MEDS: Meropenem 1 GM in Sodium Chloride 0.9% 100 ML IVPB SCH ×2 (09:04→21:45)
[2018-01-09] MEDS: Enoxaparin 30 mg Syringe SC SCH (09:04)
[2018-01-09] MEDS: Sodium Chloride 0.9% 1,000 ML IV SCH ×3 (09:06→21:46)
--- NOTE | 2018-01-09 10:09 | CP.PCM.PN ---
Subjective - Date & Time of Evaluation Date of Evaluation: 01/09/18 Time of Evaluation: 07:40 - Subjective Subjective: Patient was seen and examined at the bedside. Objective - Vital Signs/Intake and Output Vital Signs (last 24 hours): Temp Pulse Resp BP Pulse Ox 97.8 F 111 H 18 146/73 93 L 01/09/18 08:00 01/09/18 08:00 01/09/18 08:00 01/09/18 08:00 01/09/18 08:00 - Medications Medications: Current Medications Enoxaparin Sodium (Lovenox) 30 mg SC DAILY [facility] PRN Reason: Protocol Last Admin: 01/09/18 09:04 Dose: Not Given Iron Sucrose 100 mg/ Sodium (Chloride) 105 mls @ 100 mls/hr IVPB DAILY [facility] Last Admin: 01/08/18 16:12 Dose: 100 mls/hr Meropenem 1 gm/ Sodium (Chloride) 100 mls @ 100 mls/hr IVPB Q12 [facility] PRN Reason: Protocol Last Admin: 01/09/18 09:04 Dose: 100 mls/hr Sodium Chloride (Sodium Chloride 0.9%) 1,000 mls @ 125 mls/hr IV .Q8H [facility] Stop: 01/10/18 05:41 Last Admin: 01/09/18 09:06 Dose: 125 mls/hr Latanoprost (Xalatan Opht) 1 drop OU HS [facility] Last Admin: 01/08/18 22:05 Dose: 1 drop Ondansetron HCl (Zofran Inj) 4 mg IVP Q6 PRN PRN Reason: Nausea/Vomiting - Labs Labs: 01/09/18 04:20 01/09/18 04:20 PT 11.7 Seconds (9.8-13.1) 01/08/18 12:40 INR 1.1 (0.9-1.2) 01/08/18 12:40 APTT 26.4 Seconds (25.6-37.1) 01/08/18 12:40 - Constitutional Appears: Well, Non-toxic, No Acute Distress - Head Exam Head Exam: ATRAUMATIC, NORMAL INSPECTION, NORMOCEPHALIC - Eye Exam Eye Exam: EOMI, Normal appearance, PERRL Pupil Exam: NORMAL ACCOMODATION, PERRL - ENT Exam ENT Exam: Mucous Membranes Moist, Normal Exam - Neck Exam Neck Exam: Full ROM, Normal Inspection - Respiratory Exam Respiratory Exam: Rhonchi - Cardiovascular Exam Cardiovascular Exam: REGULAR RHYTHM, +S1, +S2 - GI/Abdominal Exam GI & Abdominal Exam: Soft, Normal Bowel Sounds Additional comments: NT, ND, no rebound, no guarding, EC fistula to the infra-umbilical area with some surrounding erythema - Rectal Exam Rectal Exam: Deferred - Extremities Exam Extremities Exam: Full ROM, Normal Inspection - Neurological Exam Neurological Exam: Alert, Awake, Oriented x3 - Psychiatric Exam Psychiatric exam: Normal Affect, Normal Mood - Skin Skin Exam: Dry, Intact, Normal Color, Warm Assessment and Plan - Assessment and Plan (Free Text) Assessment: 87 y.o. female with EC fistula Plan: - Keep NPO - IV fluids - Antibiotics as per ID - TPN - Repeat labs in am - Will follow
--- NOTE | 2018-01-09 10:31 | CP.PCM.PN ---
Subjective - Date & Time of Evaluation Date of Evaluation: 01/09/18 Time of Evaluation: 14:39 - Subjective Subjective: ID Note- Pt. seen and examined today . pt. denies any fever or chills. denies any nausea. denies any abd pain. s/p right arm picc line today as per surgical team for TPN. Objective - Vital Signs/Intake and Output Vital Signs (last 24 hours): Temp Pulse Resp BP Pulse Ox 97.8 F 111 H 18 146/73 93 L 01/09/18 08:00 01/09/18 08:00 01/09/18 08:00 01/09/18 08:00 01/09/18 08:00 - Medications Medications: Current Medications Enoxaparin Sodium (Lovenox) 30 mg SC DAILY [facility] PRN Reason: Protocol Last Admin: 01/09/18 09:04 Dose: Not Given Iron Sucrose 100 mg/ Sodium (Chloride) 105 mls @ 100 mls/hr IVPB DAILY [facility] Last Admin: 01/08/18 16:12 Dose: 100 mls/hr Meropenem 1 gm/ Sodium (Chloride) 100 mls @ 100 mls/hr IVPB Q12 [facility] PRN Reason: Protocol Last Admin: 01/09/18 09:04 Dose: 100 mls/hr Sodium Chloride (Sodium Chloride 0.9%) 1,000 mls @ 125 mls/hr IV .Q8H [facility] Stop: 01/10/18 05:41 Last Admin: 01/09/18 09:06 Dose: 125 mls/hr Latanoprost (Xalatan Opht) 1 drop OU HS [facility] Last Admin: 01/08/18 22:05 Dose: 1 drop Ondansetron HCl (Zofran Inj) 4 mg IVP Q6 PRN PRN Reason: Nausea/Vomiting - Labs Labs: - Additional Findings Additional findings: - Constitutional Appears: No Acute Distress - Head Exam Head Exam: ATRAUMATIC - Eye Exam Eye Exam: EOMI, PERRL - ENT Exam ENT Exam: Normal Oropharynx - Neck Exam Neck exam: Positive for: Full Rom - Respiratory Exam Respiratory Exam: Clear to Auscultation Bilateral, NORMAL BREATHING PATTERN - Cardiovascular Exam Cardiovascular Exam: RRR, +S1, +S2 - GI/Abdominal Exam GI & Abdominal Exam: Normal Bowel Sounds, Soft Additional comments: NT, ND midabdminal area small opening with green discharge, currently has colostomy bag covering it no surrounding erythema - Extremities Exam Extremities exam: Positive for: normal inspection Neuro- AAO x 3 Laboratory Results - last 72 hr 01/08/18 01/08/18 01/08/18 12:30 12:35 12:40 WBC 5.8 RBC 2.35 L Hgb 7.7 L Hct 22.6 L MCV 96.2 MCH 32.8 H MCHC 34.1 RDW 14.4 Plt Count 262 MPV 7.9 Neut % (Auto) 73.8 Lymph % (Auto) 14.2 L [place] % (Auto) 10.6 H Eos % (Auto) 0.9 Baso % (Auto) 0.5 Neut # (Auto) 4.3 Lymph # (Auto) 0.8 L [place] # (Auto) 0.6 Eos # (Auto) 0.1 Baso # (Auto) 0.0 PT INR APTT pO2 14 L VBG pH 7.36 VBG pCO2 53 VBG HCO3 25.2 VBG Total CO2 31.5 H VBG O2 Sat (Calc) 23.5 L VBG Base Excess 3.2 H VBG Potassium 4.0 Sodium 136.0 Chloride 106.0 Glucose 117 H Lactate 1.1 FiO2 21.0 Potassium Carbon Dioxide Anion Gap BUN Creatinine Est GFR ( Amer) Est GFR (Non-Af Amer) Random Glucose Calcium Iron TIBC % Saturation Total Bilirubin AST ALT Alkaline Phosphatase Total Protein Albumin Globulin Albumin/Globulin Ratio Prealbumin Venous Blood Potassium 4.0 Urine Color Urine Clarity Urine pH Ur Specific [place] Urine Protein Urine Glucose (UA) Urine Ketones Urine Blood Urine Nitrate Urine Bilirubin Urine Urobilinogen Ur Leukocyte Esterase Urine RBC (Auto) Urine Microscopic WBC Ur Squamous Epith Cells Urine Bacteria Hyaline Casts Blood Type O POSITIVE Antibody Screen Negative BBK History Checked Patient has bt 01/08/18 01/08/18 01/08/18 12:40 12:40 13:02 WBC RBC Hgb Hct MCV MCH MCHC RDW Plt Count MPV Neut % (Auto) Lymph % (Auto) [place] % (Auto) Eos % (Auto) Baso % (Auto) Neut # (Auto) Lymph # (Auto) [place] # (Auto) Eos # (Auto) Baso # (Auto) PT 11.7 INR 1.1 APTT 26.4 pO2 VBG pH VBG pCO2 VBG HCO3 VBG Total CO2 VBG O2 Sat (Calc) VBG Base Excess VBG Potassium Sodium 138 Chloride 99 Glucose Lactate FiO2 Potassium 4.3 Carbon Dioxide 28 Anion Gap 15 BUN 31 H Creatinine 1.4 H Est GFR ( Amer) 43 Est GFR (Non-Af Amer) 36 Random Glucose 115 H Calcium 8.7 Iron TIBC % Saturation Total Bilirubin 0.4 AST 22 ALT 31 Alkaline Phosphatase 62 Total Protein 6.7 Albumin 3.1 L Globulin 3.6 Albumin/Globulin Ratio 0.9 L Prealbumin 12.4 L Venous Blood Potassium Urine Color Urine Clarity Urine pH Ur Specific [place] Urine Protein Urine Glucose (UA) Urine Ketones Urine Blood Urine Nitrate Urine Bilirubin Urine Urobilinogen Ur Leukocyte Esterase Urine RBC (Auto) Urine Microscopic WBC Ur Squamous Epith Cells Urine Bacteria Hyaline Casts Blood Type Antibody Screen BBK History Checked 01/08/18 01/08/18 01/09/18 14:26 14:27 04:20 WBC 4.8 RBC 2.31 L Hgb 7.5 L Hct 22.6 L MCV 97.8 MCH 32.7 H MCHC 33.4 RDW 14.8 H Plt Count 244 MPV Neut % (Auto) Lymph % (Auto) [place] % (Auto) Eos % (Auto) Baso % (Auto) Neut # (Auto) Lymph # (Auto) [place] # (Auto) Eos # (Auto) Baso # (Auto) PT INR APTT pO2 VBG pH VBG pCO2 VBG HCO3 VBG Total CO2 VBG O2 Sat (Calc) VBG Base Excess VBG Potassium Sodium Chloride Glucose Lactate FiO2 Potassium Carbon Dioxide Anion Gap BUN Creatinine Est GFR ( Amer) Est GFR (Non-Af Amer) Random Glucose Calcium Iron 16 L TIBC 197 L % Saturation 8 L Total Bilirubin AST ALT Alkaline Phosphatase Total Protein Albumin Globulin Albumin/Globulin Ratio Prealbumin Venous Blood Potassium Urine Color Yellow Urine Clarity Cloudy Urine pH 6.0 Ur Specific [place] 1.013 Urine Protein 100 Urine Glucose (UA) Neg Urine Ketones Negative Urine Blood Moderate Urine Nitrate Negative Urine Bilirubin Negative Urine Urobilinogen 0.2-1.0 Ur Leukocyte Esterase Large Urine RBC (Auto) 56 H Urine Microscopic WBC 200 H Ur Squamous Epith Cells 1 Urine Bacteria Occ H Hyaline Casts >20 H Blood Type Antibody Screen BBK History Checked 01/09/18 04:20 WBC RBC Hgb Hct MCV MCH MCHC RDW Plt Count MPV Neut % (Auto) Lymph % (Auto) [place] % (Auto) Eos % (Auto) Baso % (Auto) Neut # (Auto) Lymph # (Auto) [place] # (Auto) Eos # (Auto) Baso # (Auto) PT INR APTT pO2 VBG pH VBG pCO2 VBG HCO3 VBG Total CO2 VBG O2 Sat (Calc) VBG Base Excess VBG Potassium Sodium 143 Chloride 103 Glucose Lactate FiO2 Potassium 4.4 Carbon Dioxide 28 Anion Gap 16 BUN 21 H Creatinine 1.2 Est GFR ( Amer) 52 Est GFR (Non-Af Amer) 43 Random Glucose 110 H Calcium 8.3 L Iron TIBC % Saturation Total Bilirubin AST ALT Alkaline Phosphatase Total Protein Albumin Globulin Albumin/Globulin Ratio Prealbumin Venous Blood Potassium Urine Color Urine Clarity Urine pH Ur Specific [place] Urine Protein Urine Glucose (UA) Urine Ketones Urine Blood Urine Nitrate Urine Bilirubin Urine Urobilinogen Ur Leukocyte Esterase Urine RBC (Auto) Urine Microscopic WBC Ur Squamous Epith Cells Urine Bacteria Hyaline Casts Blood Type Antibody Screen BBK History Checked Microbiology 01/08/18 13:00 Blood-Venous Blood Culture - Preliminary NO GROWTH AFTER 24 HOURS 01/08/18 12:30 Blood-Venous Blood Culture - Preliminary NO GROWTH AFTER 24 HOURS 01/08/18 14:27 Urine,Clean Catch Urine Culture - Preliminary Gram Negative Tu 01/08/18 13:27 Abdomen Gram Stain - Final 01/08/18 13:27 Abdomen Wound Culture - Preliminary Gram Negative Tu Gram Positive Cocci Accession No. 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 TECHNIQUE: Helical CT of the abdomen and pelvis was performed following oral contrast administration. Intravenous contrast was not administered as per referring physician request. Contrast dose: None Radiation dose: Total exam DLP = 958.94 mGy-cm. This CT exam was performed using one or more of the following dose reduction techniques: Automated exposure control, adjustment of the mA and/or kV according to patient size, and/or use of iterative reconstruction technique. FINDINGS: LOWER THORAX: Cardiomegaly reiterated as well as linear atelectasis or fibrosis right base. LIVER: Unremarkable. No gross lesion or ductal dilatation. GALLBLADDER AND BILE DUCTS: Reiteration of prior cholecystectomy. PANCREAS: Unremarkable. No gross lesion or ductal dilatation. SPLEEN: Unremarkable. ADRENALS: Unremarkable. No mass. KIDNEYS AND URETERS: 3.5 cm simple cyst lower pole right kidney again evident with both kidneys otherwise unremarkable and stable in appearance bilaterally. Unremarkable bilateral ureters in this unenhanced examination. VASCULATURE: Unremarkable. No aortic aneurysm. BOWEL: Examination remains [place] formed enterocutaneous fistula which is well delineated by oral contrast material pooling at the distal segment of the fistula at the anterior abdominal wall and umbilical or periumbilical location. Further, sigmoid diverticular changes are reiterated with probable chronic local reaction in pericolic fat but no free air or definite abscess. No ascites. Clinically correlate further. Subcutaneous fatty changes seen throughout the colon which may reflect chronic inflammatory process such is inflow inflammatory bowel disease. APPENDIX: Not identified-no CT evidence to suggest appendicitis at this time. PERITONEUM: Unremarkable. No free fluid. No free air. LYMPH NODES: Unremarkable. No enlarged lymph nodes. BLADDER: Unremarkable. REPRODUCTIVE: Unremarkable. BONES: No acute fracture. OTHER FINDINGS: None. IMPRESSION: Reiteration of enterocutaneous fistula with a tract better delineated on the current examination, well delineated by oral contrast material including umbilicus or periumbilical abdominal wall deformity. Other lesser findings as discussed above. Assessment and Plan (1) Enterocutaneous fistula Status: Acute (2) S/P laparoscopic cholecystectomy Status: Acute - Assessment and Plan (Free Text) Assessment: A/P- 87 year old female s/p recent lap tyesha with subsequent enterocutaneous fistula formation with serratia growth from the wound cx from last admission last month and completed 10 days of IV antibiotics and wound opening had closed, who now presents to ED with opening again at site of the fistula in midabdomen with yellow -green discharge. afebrile normal wbc count + UA urine cx - prelim GNR Wound cx prelim- GNR and GPC plan- advise to continue with IV meropnem ( which she tolerated well on last admission ) to cover for the serratia from last admission wound cx pending results of this admission wound cx.
[2018-01-09] MEDS ORDERED: Lidocaine 1% Inj (20ml) ONE (12:27)
--- NOTE | 2018-01-09 12:57 | PCM.SURG1 ---
Surgeon's Initial Post Op Note - Surgeon's Notes Surgeon: Solitario Weiss MD Hazardous Waste Material Technician: NONE Type of Anesthesia: Local Pre-Operative Diagnosis: Infection Operative Findings: US showed patent right basilic vein Post-Operative Diagnosis: Infection Operation Performed: Placement of right arm single lumen picc, 32 cm. Tip is in the SVC. Specimen/Specimens Removed: none Estimated Blood Loss: EBL {In ML}: 2 Blood Products Given: N/A Drains Used: No Drains Post-Op Condition: Fair Date of Surgery/Procedure: 01/09/18 Time of Surgery/Procedure: 12:55
--- NOTE | 2018-01-09 14:07 | VASCULAR ---
PROCEDURE: Date of procedure: 01/09/2018 Procedure: 1. Placement of a right arm PICC with ultrasound and fluoroscopic guidance, CPT 96203 2. PICC tip confirmation with spot radiograph and is in the superior vena cava Medications: 1 percent lidocaine Total Fluoro time: 3.1 seconds Radiation: 0.29 MGy EBL: 2 cc HISTORY: Infection requiring long-term IV antibiotics TECHNIQUE: Following informed consent and procedure time-out, the patient was placed supine on the interventional table and the right arm prepped and draped in the usual sterile fashion. Ultrasound showed a patent and compressible right basilic vein. After the skin was anesthetized with lidocaine, the basilic vein was accessed with micro micropuncture technique using ultrasound guidance. A guidewire was then advanced under fluoroscopic guidance into the superior vena cava. An image documenting ultrasound guidance for vascular access was permanently saved. The length of the single-lumen 4 Haitian PICC was trimmed to 32 centimeters and advanced through a peel-away sheath. The PICC was position with tip of PICC confirm a spot radiograph the superior vena cava. The PICC was secured to the patient's skin. The PICC was flushed. A biopatch and sterile dressing was applied. IMPRESSION: Placement of a single-lumen 4 Haitian PICC trimmed to 32 centimeters via right basilic vein. The tip of the PICC is confirmed with spot radiograph and is in the superior vena cava.
[2018-01-09] MEDS: Latanoprost 0.005% Opht SOUTION OU SCH (21:46)
[2018-01-10 06:32] LABS: BASO % 0.6 % (0.0-2.0); EOS # 0.1 K/uL (0.0-0.7); EOS % 3.2 % (0.0-4.0); HEMOGLOBIN 7.7 g/dL (12.0-16.0); LYMPH # 0.9 K/uL (1.0-4.3); LYMPH % 20.4 % (20.0-40.0); MEAN CELL VOLUME 98.3 fl (81.0-99.0); MEAN CORPUSCULAR HEMOGLOBIN 32.3 pg (27.0-31.0); MEAN CORPUSCULAR HGB CONC 32.8 g/dL (33.0-37.0); MEAN PLATELET VOLUME 7.7 fl (7.2-11.7); MONO # 0.5 K/uL (0.0-0.8); MONO % 11.4 % (0.0-10.0); NEUT % 64.4 % (50.0-75.0); RBC 2.37 Mil/uL (3.80-5.20); RED CELL DISTRIBUTION WIDTH 14.7 % (11.5-14.5); WHITE BLOOD COUNT 4.6 K/uL (4.8-10.8)
[2018-01-10 06:41] LABS: BLOOD UREA NITROGEN 14 mg/dl (7-17); CALCIUM 8.7 mg/dL (8.4-10.2); GFR AFRICAN-AMERICAN > 60; GFR NON-AFRICAN AMERICAN 53
--- NOTE | 2018-01-10 07:54 | CP.PCM.PN ---
Subjective - Date & Time of Evaluation Date of Evaluation: 01/10/18 Time of Evaluation: 09:00 - Subjective Subjective: Patient seen and examined bedside. Elderly female of stated age lying in bed , feeling anxious. Complains of some abdominal discomfort around the enterocutaneos fistula.With episodes of tachycardia as high as 140 this AM Afebrile, NPO Colostomty bag over fistula with bilious output present , leaking Objective - Vital Signs/Intake and Output Vital Signs (last 24 hours): Temp Pulse Resp BP Pulse Ox 98.4 F 100 H 18 134/73 100 01/10/18 05:13 01/10/18 05:13 01/10/18 05:13 01/10/18 05:13 01/10/18 05:13 - Medications Medications: Current Medications Enoxaparin Sodium (Lovenox) 30 mg SC DAILY [facility] PRN Reason: Protocol Last Admin: 01/09/18 09:04 Dose: Not Given Iron Sucrose 100 mg/ Sodium (Chloride) 105 mls @ 100 mls/hr IVPB DAILY [facility] Last Admin: 01/09/18 14:59 Dose: 100 mls/hr Meropenem 1 gm/ Sodium (Chloride) 100 mls @ 100 mls/hr IVPB Q12 [facility]O PRN Reason: Protocol Last Admin: 01/09/18 21:45 Dose: 100 mls/hr Latanoprost (Xalatan Opht) 1 drop OU HS [facility] Last Admin: 01/09/18 21:46 Dose: 1 drop Ondansetron HCl (Zofran Inj) 4 mg IVP Q6 PRN PRN Reason: Nausea/Vomiting - Labs Labs: 01/10/18 05:15 01/10/18 05:15 PT 11.7 Seconds (9.8-13.1) 01/08/18 12:40 INR 1.1 (0.9-1.2) 01/08/18 12:40 APTT 26.4 Seconds (25.6-37.1) 01/08/18 12:40 - Constitutional Appears: Non-toxic, No Acute Distress - Head Exam Head Exam: ATRAUMATIC, NORMAL INSPECTION, NORMOCEPHALIC - Eye Exam Eye Exam: EOMI, Normal appearance, PERRL Pupil Exam: NORMAL ACCOMODATION - ENT Exam ENT Exam: Mucous Membranes Dry, Normal Exam - Neck Exam Neck Exam: Full ROM, Normal Inspection - Respiratory Exam Respiratory Exam: Clear to Ausculation Bilateral. absent: Accessory Muscle Use , Prolonged Expiratory Phase, Wheezes, Respiratory Distress Additional comments: audible rhonchi - Cardiovascular Exam Cardiovascular Exam: Tachycardia, REGULAR RHYTHM, +S1, +S2. absent: JVD - GI/Abdominal Exam GI & Abdominal Exam: Soft, Normal Bowel Sounds. absent: Distended, Guarding, Tenderness Additional comments: enterocutaneus fistula with bilious output - Rectal Exam Rectal Exam: Deferred - Extremities Exam Extremities Exam: Full ROM, Normal Capillary Refill, Normal Inspection. absent : Calf Tenderness, Pedal Edema - Back Exam Back Exam: NORMAL INSPECTION - Neurological Exam Neurological Exam: Alert, Awake, CN II-XII Intact, Oriented x3 - Psychiatric Exam Psychiatric exam: Anxious, Flat Affect - Skin Skin Exam: Dry, Pallor, Pallor, Warm Additional comments: surrounding enterocutaneus fistula skin eythema and excoriation Assessment and Plan - Assessment and Plan (Free Text) Assessment: 87 yo female with a past medical history of arthritis and hypertension was recently admitted to [facility] on 11/25/2017 and was found to have cholilithiases and cholecystitis. She then had lap tyesha and iatrogenic enterotomy. She was given IV antibiotics (Zosyn) and was then sent home with po augmentin on 12/04/2016. At home her surgical wound started draining some mucoid greenish material and she was advised to come in for evaluation by her surgeon. 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 Patient was admitted , started on IV Zosyn and Flagyl , kept NPO ,surgery and ID consulted At that time, surgery recommended conservative management with NPO, TPN, and IV antibiotics. Wound cultures were reported as positive for Serratia Liquefaciens and antibiotics changed to Meropenem IV. Patient's diet was upgraded to regular and she tolerated well and was sent home.Today returns with drainage from fistula again. CT abdomen showed enterocutaneous fistula with a tract better delineated on the current examination, well delineated by oral contrast material including umbilicus or periumbilical abdominal wall deformity. Admitted and started on IVF and IV meropenem 1. Enterocutaneous Fistula, large amount of drainage Surgery consulted and case discussed with Dr. Lawler. Will continue conservative treatment for 1 week.Keep patient NPO and continue IVF PICC line placed . Will start TPN ID consulted . Started on Meropenem IV Wound c/s from last admission Francisca patient is afebrile with no WBC and no peritoneal signs Monitor fistula output closely. If output decreases to minimal no surgical intervention is necessary. If output continuos to be significant patient will need surgery Continue wound care around fistula for skin erythema. Wound care consulted 2. 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 Asymptomatic bacteriuria Denies any dysuria or frequency Continue meropenem empirically Follow up cultures 3. HTN BP stable monitor vitals Held metoprolol due to total NPO status Will start Lopressor 5 mg IV BID today to better control HR since patient becoming tachycardic 4. Hyperlipidemia Hold statin for now due to total NPO status 5. Acute Renal Insufficiency probably secondary to volume depletion Continue IV hydration 6. DVT prophylaxis Lovenox 30 mg sc
[2018-01-10] MEDS: Enoxaparin 30 mg Syringe SC SCH (08:59)
[2018-01-10] MEDS: Metoprolol 1 mg/ml Inj IVP SCH ×2 (08:59→21:00)
[2018-01-10] MEDS: Meropenem 1 GM in Sodium Chloride 0.9% 100 ML IVPB SCH ×2 (08:59→20:32)
--- NOTE | 2018-01-10 12:59 | CP.PCM.PN ---
<Niles Sanchez - Last Filed: 01/10/18 12:57> Subjective - Date & Time of Evaluation Date of Evaluation: 01/10/18 Time of Evaluation: 12:57 - Subjective Subjective: General Surgery progress Note for Dr. Lawler This 87F was seen and examined this AM at bedside no acute events overnight. She denies any pain fevers chills chest pain nausea vomiting or diarrhea. However her HR was elevated this am at 144 for whch she was given increased fluids. PT had PICC placed yesterday with TPN starting today. Objective - Vital Signs/Intake and Output Vital Signs (last 24 hours): Temp Pulse Resp BP Pulse Ox 97.9 F 94 H 18 125/68 100 01/10/18 12:00 01/10/18 12:00 01/10/18 12:00 01/10/18 12:00 01/10/18 12:00 - Medications Medications: Current Medications Enoxaparin Sodium (Lovenox) 30 mg SC DAILY ALFREDO PRN Reason: Protocol Last Admin: 01/10/18 08:59 Dose: 30 mg Iron Sucrose 100 mg/ Sodium (Chloride) 105 mls @ 100 mls/hr IVPB DAILY [facility] Last Admin: 01/10/18 09:01 Dose: 100 mls/hr Meropenem 1 gm/ Sodium (Chloride) 100 mls @ 100 mls/hr IVPB Q12 [facility]EDO PRN Reason: Protocol Last Admin: 01/10/18 08:59 Dose: 100 mls/hr Latanoprost (Xalatan Opht) 1 drop OU HS [facility] Last Admin: 01/09/18 21:46 Dose: 1 drop Metoprolol Tartrate (Lopressor) 5 mg IVP Q12 [facility] Last Admin: 01/10/18 08:59 Dose: 5 mg Ondansetron HCl (Zofran Inj) 4 mg IVP Q6 PRN PRN Reason: Nausea/Vomiting - Labs Labs: 01/10/18 05:15 01/10/18 05:15 PT 11.7 Seconds (9.8-13.1) 01/08/18 12:40 INR 1.1 (0.9-1.2) 01/08/18 12:40 APTT 26.4 Seconds (25.6-37.1) 01/08/18 12:40 - Constitutional Appears: Well, Non-toxic, No Acute Distress - Head Exam Head Exam: ATRAUMATIC, NORMAL INSPECTION, NORMOCEPHALIC - Eye Exam Eye Exam: EOMI, Normal appearance, PERRL Pupil Exam: NORMAL ACCOMODATION, PERRL - ENT Exam ENT Exam: Mucous Membranes Moist, Normal Exam - Neck Exam Neck Exam: Full ROM, Normal Inspection - Respiratory Exam Respiratory Exam: Rhonchi - Cardiovascular Exam Cardiovascular Exam: REGULAR RHYTHM, +S1, +S2 - GI/Abdominal Exam GI & Abdominal Exam: Soft, Normal Bowel Sounds Additional comments: NT, ND, no rebound, no guarding, EC fistula to the infra-umbilical area with some surrounding erythema - Rectal Exam Rectal Exam: Deferred - Extremities Exam Extremities Exam: Full ROM, Normal Inspection - Neurological Exam Neurological Exam: Alert, Awake, Oriented x3 - Psychiatric Exam Psychiatric exam: Normal Affect, Normal Mood - Skin Skin Exam: Dry, Intact, Normal Color, Warm Assessment and Plan - Assessment and Plan (Free Text) Assessment: 87 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 Bucky Sanchez PGY2 <Michael Lawler - Last Filed: 01/10/18 13:18> Subjective - Subjective Subjective: Patient was seen and examined at the bedside. Agree with resident's note above. Objective - Vital Signs/Intake and Output Vital Signs (last 24 hours): Temp Pulse Resp BP Pulse Ox 97.9 F 94 H 18 125/68 100 01/10/18 12:00 01/10/18 12:00 01/10/18 12:00 01/10/18 12:00 01/10/18 12:00 - Medications Medications: Current Medications Enoxaparin Sodium (Lovenox) 30 mg SC DAILY ALFREDO PRN Reason: Protocol Last Admin: 01/10/18 08:59 Dose: 30 mg Iron Sucrose 100 mg/ Sodium (Chloride) 105 mls @ 100 mls/hr IVPB DAILY [facility] Last Admin: 01/10/18 09:01 Dose: 100 mls/hr Meropenem 1 gm/ Sodium (Chloride) 100 mls @ 100 mls/hr IVPB Q12 [facility] PRN Reason: Protocol Last Admin: 01/10/18 08:59 Dose: 100 mls/hr Latanoprost (Xalatan Opht) 1 drop OU HS [facility] Last Admin: 01/09/18 21:46 Dose: 1 drop Metoprolol Tartrate (Lopressor) 5 mg IVP Q12 [facility] Last Admin: 01/10/18 08:59 Dose: 5 mg Ondansetron HCl (Zofran Inj) 4 mg IVP Q6 PRN PRN Reason: Nausea/Vomiting - Labs Labs: 01/10/18 05:15 01/10/18 05:15 PT 11.7 Seconds (9.8-13.1) 01/08/18 12:40 INR 1.1 (0.9-1.2) 01/08/18 12:40 APTT 26.4 Seconds (25.6-37.1) 01/08/18 12:40
[2018-01-10] MEDS: Dextrose 5%/0.45% NS 1,000 ML IV SCH (20:26)
[2018-01-10] MEDS: Latanoprost 0.005% Opht SOUTION OU SCH (22:00)
--- NOTE | 2018-01-11 05:39 | CP.PCM.PN ---
Subjective - Date & Time of Evaluation Date of Evaluation: 01/11/18 Time of Evaluation: 06:20 - Subjective Subjective: General Surgery progress Note for Dr. Lawler Patient was seen and examined at bedside. No acute events overnight. Pain is well controlled. Patient had 30 cc of output from fistula overnight. Patient has no complaints at this time. Objective - Vital Signs/Intake and Output Vital Signs (last 24 hours): Temp Pulse Resp BP Pulse Ox 97.4 F L 98 H 18 131/70 100 01/11/18 05:24 01/11/18 05:24 01/11/18 05:24 01/11/18 05:24 01/11/18 05:24 Intake and Output: 01/10/18 01/11/18 18:59 06:59 Intake Total 1150 Output Total 8 Balance 1142 - Medications Medications: Current Medications Enoxaparin Sodium (Lovenox) 30 mg SC DAILY AL[facility]EDO PRN Reason: Protocol Last Admin: 01/10/18 08:59 Dose: 30 mg Iron Sucrose 100 mg/ Sodium (Chloride) 105 mls @ 100 mls/hr IVPB DAILY [facility] Last Admin: 01/10/18 09:01 Dose: 100 mls/hr Meropenem 1 gm/ Sodium (Chloride) 100 mls @ 100 mls/hr IVPB Q12 [facility] PRN Reason: Protocol Last Admin: 01/10/18 20:32 Dose: 100 mls/hr Dextrose/Sodium Chloride (Dextrose 5%/0.45% Ns 1000 Ml) 1,000 mls @ 80 mls/hr IV .[id number] [facility] Stop: 01/11/18 19:59 Last Admin: 01/10/18 20:26 Dose: 80 mls/hr Latanoprost (Xalatan Opht) 1 drop OU HS [facility] Last Admin: 01/10/18 22:00 Dose: 1 drop Metoprolol Tartrate (Lopressor) 5 mg IVP Q12 [facility] Last Admin: 01/10/18 21:00 Dose: 5 mg Ondansetron HCl (Zofran Inj) 4 mg IVP Q6 PRN PRN Reason: Nausea/Vomiting - Labs Labs: 01/10/18 05:15 01/10/18 05:15 PT 11.7 Seconds (9.8-13.1) 01/08/18 12:40 INR 1.1 (0.9-1.2) 01/08/18 12:40 APTT 26.4 Seconds (25.6-37.1) 01/08/18 12:40 - Constitutional Appears: No Acute Distress - Head Exam Head Exam: ATRAUMATIC, NORMOCEPHALIC - Eye Exam Eye Exam: EOMI, Normal appearance Pupil Exam: PERRL - ENT Exam ENT Exam: Mucous Membranes Moist - Respiratory Exam Respiratory Exam: NORMAL BREATHING PATTERN - Cardiovascular Exam Cardiovascular Exam: REGULAR RHYTHM (hr: 98 bpm) - GI/Abdominal Exam GI & Abdominal Exam: Soft. absent: Distended, Firm, Guarding, Rigid, Tenderness , Rebound Additional comments: Enterocutaneous fistula in infra-umbilical region, some erythema present - Extremities Exam Extremities Exam: Normal Capillary Refill. absent: Calf Tenderness - Neurological Exam Neurological Exam: Alert, Awake - Psychiatric Exam Psychiatric exam: Normal Affect, Normal Mood - Skin Skin Exam: Dry, Warm Assessment and Plan - Assessment and Plan (Free Text) Plan: 87 F with enterocutaneous fistula - NPO - IV fluids - Antibiotics as per ID - TPN - Strict I's & O's - Will discuss with Dr. Bucky Sanchez PGY1
[2018-01-11 08:00] LABS: HEMOGLOBIN 7.8 g/dL (12.0-16.0); MEAN CELL VOLUME 98.6 fl (81.0-99.0); MEAN CORPUSCULAR HEMOGLOBIN 32.3 pg (27.0-31.0); MEAN CORPUSCULAR HGB CONC 32.8 g/dL (33.0-37.0); RBC 2.42 Mil/uL (3.80-5.20); RED CELL DISTRIBUTION WIDTH 14.9 % (11.5-14.5); WHITE BLOOD COUNT 5.5 K/uL (4.8-10.8)
[2018-01-11 08:12] LABS: CALCIUM 8.7 mg/dL (8.4-10.2)
[2018-01-11] MEDS: Meropenem 1 GM in Sodium Chloride 0.9% 100 ML IVPB SCH ×2 (08:41→20:30)
[2018-01-11] MEDS: Dextrose 5%/0.45% NS 1,000 ML IV SCH (08:43)
[2018-01-11] MEDS: Enoxaparin 30 mg Syringe SC SCH (08:44)
[2018-01-11] MEDS: Metoprolol 1 mg/ml Inj IVP SCH ×2 (08:44→20:34)
--- NOTE | 2018-01-11 09:48 | CP.PCM.PN ---
Subjective - Date & Time of Evaluation Date of Evaluation: 01/11/18 Time of Evaluation: 09:00 - Subjective Subjective: Pt has no fever denies abd pain complains of low back pain no CP no SOB no dizziness Drainage from fistula: 30 ml overnight Objective - Vital Signs/Intake and Output Vital Signs (last 24 hours): Temp Pulse Resp BP Pulse Ox 97.4 F L 92 H 18 118/67 98 01/11/18 08:00 01/11/18 08:44 01/11/18 08:00 01/11/18 08:44 01/11/18 08:00 Intake and Output: 01/11/18 01/11/18 06:59 18:59 Intake Total 880 Output Total 30 Balance 850 - Medications Medications: Current Medications Enoxaparin Sodium (Lovenox) 30 mg SC DAILY [facility]O PRN Reason: Protocol Last Admin: 01/11/18 08:44 Dose: 30 mg Iron Sucrose 100 mg/ Sodium (Chloride) 105 mls @ 100 mls/hr IVPB DAILY [facility] Last Admin: 01/10/18 09:01 Dose: 100 mls/hr Meropenem 1 gm/ Sodium (Chloride) 100 mls @ 100 mls/hr IVPB Q12 [facility] PRN Reason: Protocol Last Admin: 01/11/18 08:41 Dose: 100 mls/hr Dextrose/Sodium Chloride (Dextrose 5%/0.45% Ns 1000 Ml) 1,000 mls @ 80 mls/hr IV .[id number] [facility] Stop: 01/11/18 19:59 Last Admin: 01/11/18 08:43 Dose: 80 mls/hr Latanoprost (Xalatan Opht) 1 drop OU HS [facility] Last Admin: 01/10/18 22:00 Dose: 1 drop Metoprolol Tartrate (Lopressor) 5 mg IVP Q12 [facility] Last Admin: 01/11/18 08:44 Dose: 5 mg Ondansetron HCl (Zofran Inj) 4 mg IVP Q6 PRN PRN Reason: Nausea/Vomiting - Labs Labs: 01/11/18 06:10 01/11/18 06:10 PT 11.7 Seconds (9.8-13.1) 01/08/18 12:40 INR 1.1 (0.9-1.2) 01/08/18 12:40 APTT 26.4 Seconds (25.6-37.1) 01/08/18 12:40 - Constitutional Appears: No Acute Distress - Head Exam Head Exam: NORMAL INSPECTION, NORMOCEPHALIC - Eye Exam Eye Exam: EOMI, Normal appearance Pupil Exam: NORMAL ACCOMODATION - ENT Exam ENT Exam: Mucous Membranes Dry, Normal External Ear Exam - Neck Exam Neck Exam: Full ROM. absent: Meningismus - Respiratory Exam Respiratory Exam: NORMAL BREATHING PATTERN. absent: Respiratory Distress - Cardiovascular Exam Cardiovascular Exam: REGULAR RHYTHM, +S1, +S2 - GI/Abdominal Exam GI & Abdominal Exam: Soft, Normal Bowel Sounds. absent: Tenderness Additional comments: Abd wall fistula with greenish brown drainage, Colostomy bag placed to collect drainage - Extremities Exam Extremities Exam: Full ROM, Normal Capillary Refill. absent: Calf Tenderness - Back Exam Back Exam: Full ROM. absent: CVA tenderness (L), CVA tenderness (R) - Neurological Exam Neurological Exam: Alert, Awake, CN II-XII Intact, Oriented x3 Neuro motor strength exam: Left Upper Extremity: 5, Right Upper Extremity: 5, Left Lower Extremity: 5, Right Lower Extremity: 5 - Psychiatric Exam Psychiatric exam: Normal Affect, Normal Mood - Skin Skin Exam: Dry, Normal Color, Warm Assessment and Plan - Assessment and Plan (Free Text) Assessment: 87 yo female with a past medical history of arthritis and hypertension was recently admitted to [facility] on 11/25/2017 fo Cholecystitis, underwent Lap tyesha and iatrogenic enterotomy. At home her surgical wound started draining some mucoid greenish material and she was advised to come in for evaluation by her surgeon. 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 Patient was admitted , started on IV Zosyn and Flagyl , kept NPO , and managed conservatively with NPO , TPN, and IV antibiotics. Wound cultures were reported as positive for Serratia Liquefaciens and antibiotics changed to Meropenem IV. Patient's drainage resolved and diet was upgraded to regular and she tolerated well and was sent home. 01/08/18 : returns with drainage from fistula again. CT abdomen showed enterocutaneous fistula with a tract better delineated on the current examination, well delineated by oral contrast material including umbilicus or periumbilical abdominal wall deformity. Admitted and started on IVF and IV meropenem 1. Enterocutaneous Fistula Surgery consulted and case discussed. Will continue conservative treatment for 1 week. Keep patient NPO and continue IVF PICC line placed . Plan to strt TPN however I was informed by Pharmacy that there is a back order for TPN and it is not available at the moment start D10 with KCl and MVI ID consulted. cont Meropenem IV Wound c/s from last admission [facility] patient is afebrile with no WBC and no peritoneal signs Monitor fistula output closely. If output decreases to minimal no surgical intervention is necessary. If output continues to be significant patient will need surgery Continue wound care around fistula for skin erythema. Wound care consulted 2. Anemia, chronic Hgb 7.7, stable pt refuses transfusion pt asymptomatic IV venofer l 3. Asymptomatic bacteriuria Denies any dysuria or frequency Continue meropenem empirically Follow up cultures 3. HTN BP stable monitor vitals Held metoprolol due to total NPO status cont Lopressor 5 mg IV BID 4. Hyperlipidemia Hold statin for now due to total NPO status 5. Acute Renal Insufficiency probably secondary to volume depletion Continue IV hydration 6. DVT prophylaxis Lovenox 30 mg sc
[2018-01-11] MEDS: MULTIVITAMIN IV SCH (11:38)
[2018-01-11] MEDS: POTASSIUM CHLORIDE IV SCH (11:38)
[2018-01-11] MEDS: DEXTROSE IV SCH (11:38)
[2018-01-11] MEDS: WATER IV SCH (11:38)
[2018-01-11] MEDS: Latanoprost 0.005% Opht SOUTION OU SCH (21:23)
[2018-01-12] MEDS: WATER IV SCH (04:00)
[2018-01-12] MEDS: MULTIVITAMIN IV SCH ×2 (04:00→11:12)
[2018-01-12] MEDS: DEXTROSE IV SCH ×2 (04:00→11:12)
[2018-01-12] MEDS: POTASSIUM CHLORIDE IV SCH (04:00)
[2018-01-12 08:40] LABS: BLOOD UREA NITROGEN 12 mg/dl (7-17); CALCIUM 8.6 mg/dL (8.4-10.2); GFR AFRICAN-AMERICAN > 60; GFR NON-AFRICAN AMERICAN 60
[2018-01-12 08:41] LABS: HEMOGLOBIN 7.8 g/dL (12.0-16.0); MEAN CELL VOLUME 98.1 fl (81.0-99.0); MEAN CORPUSCULAR HGB CONC 32.6 g/dL (33.0-37.0); RBC 2.44 Mil/uL (3.80-5.20); RED CELL DISTRIBUTION WIDTH 14.8 % (11.5-14.5); WHITE BLOOD COUNT 4.8 K/uL (4.8-10.8)
--- NOTE | 2018-01-12 09:23 | CP.PCM.PN ---
Subjective - Date & Time of Evaluation Date of Evaluation: 01/12/18 Time of Evaluation: 08:00 - Subjective Subjective: General Surgery progress Note for Dr. Jean-Pierre Oropeza, PGY-1 Pt S & E at bedside. pt reports no problems, no pain. Per nursing- pt was reporting abdominal pain. Fistula w/60cc dark green output to ostomy bag overnight. Had a semiformed BM overnight. Objective - Vital Signs/Intake and Output Vital Signs (last 24 hours): Temp Pulse Resp BP Pulse Ox 98.2 F 82 20 123/63 95 01/12/18 07:54 01/12/18 07:54 01/12/18 07:54 01/12/18 07:54 01/12/18 07:54 Intake and Output: 01/12/18 01/12/18 06:59 18:59 Intake Total Output Total Balance - Medications Medications: Current Medications Enoxaparin Sodium (Lovenox) 30 mg SC DAILY [facility] PRN Reason: Protocol Last Admin: 01/11/18 08:44 Dose: 30 mg Iron Sucrose 100 mg/ Sodium (Chloride) 105 mls @ 100 mls/hr IVPB DAILY [facility] Last Admin: 01/11/18 11:38 Dose: 100 mls/hr Meropenem 1 gm/ Sodium (Chloride) 100 mls @ 100 mls/hr IVPB Q12 [facility] PRN Reason: Protocol Last Admin: 01/11/18 20:30 Dose: 100 mls/hr Potassium Chloride 20 meq/Multivitamins/Vitamin C 10 ml/Dextrose 1,020 mls @ 60 mls/hr IV .Q17H [facility] Stop: 01/12/18 10:19 Last Admin: 01/12/18 04:00 Dose: Not Given Vancomycin HCl 750 mg/ Sodium (Chloride) 250 mls @ 166.667 mls/hr IVPB DAILY [facility] PRN Reason: Protocol Last Admin: 01/11/18 16:41 Dose: 166.667 mls/hr Potassium Chloride/Dextrose 20 ml/ Multivitamins/Vitamin C 10 ml/ Dextrose 1, 030 mls @ 60 mls/hr IV .[id number] [facility] Stop: 01/13/18 09:20 Latanoprost (Xalatan Opht) 1 drop OU HS [facility] Last Admin: 01/11/18 21:23 Dose: 1 drop Metoprolol Tartrate (Lopressor) 5 mg IVP Q12 [facility] Last Admin: 01/11/18 20:34 Dose: 5 mg Ondansetron HCl (Zofran Inj) 4 mg IVP Q6 PRN PRN Reason: Nausea/Vomiting Tramadol HCl (Ultram) 50 mg PO Q8 PRN PRN Reason: Pain, moderate (4-7) Last Admin: 01/11/18 17:22 Dose: 50 mg - Labs Labs: 01/12/18 06:30 01/12/18 06:30 PT 11.7 Seconds (9.8-13.1) 01/08/18 12:40 INR 1.1 (0.9-1.2) 01/08/18 12:40 APTT 26.4 Seconds (25.6-37.1) 01/08/18 12:40 - Constitutional Appears: Non-toxic, No Acute Distress - Head Exam Head Exam: ATRAUMATIC, NORMAL INSPECTION, NORMOCEPHALIC - Eye Exam Eye Exam: EOMI, Normal appearance - ENT Exam ENT Exam: Mucous Membranes Moist, Normal Exam - Neck Exam Neck Exam: Full ROM, Normal Inspection - Respiratory Exam Respiratory Exam: NORMAL BREATHING PATTERN - Cardiovascular Exam Cardiovascular Exam: REGULAR RHYTHM - GI/Abdominal Exam GI & Abdominal Exam: Soft. absent: Distended, Firm, Guarding, Rigid, Tenderness Additional comments: Ostomy over fistula with ~5cc dark green output to bag. - Extremities Exam Extremities Exam: Normal Inspection - Neurological Exam Neurological Exam: Alert, Awake, CN II-XII Intact, Oriented x3 - Psychiatric Exam Psychiatric exam: Normal Affect, Normal Mood - Skin Skin Exam: Dry, Normal Color, Warm. absent: Intact (fistula over abdominal wall ) Assessment and Plan - Assessment and Plan (Free Text) Assessment: 87 F with enterocutaneous fistula Plan: NPO IVF Abx as per ID TPN Strict I/O's OOBTC Ambulate with assistance DW attending Johnna, PGY-1
[2018-01-12] MEDS: Enoxaparin 30 mg Syringe SC SCH (10:06)
[2018-01-12] MEDS: Meropenem 1 GM in Sodium Chloride 0.9% 100 ML IVPB SCH ×2 (10:06→20:57)
[2018-01-12] MEDS: POTASSIUM CH IV SCH (11:12)
[2018-01-12] MEDS: [UNRECOGNIZED DRUG - OTHER] IV SCH (11:12)
[2018-01-12] MEDS: D5W IV SCH (11:12)
--- NOTE | 2018-01-12 14:26 | CP.PCM.PN ---
Subjective - Date & Time of Evaluation Date of Evaluation: 01/12/18 Time of Evaluation: 12:00 - Subjective Subjective: Pt was ambulating around the unit with her daughter denies abd pain no N/V + BM accdg to RN Fistula drained 90ml Pt slept well last night back pain resolved denies CP no SOB no fever Objective - Vital Signs/Intake and Output Vital Signs (last 24 hours): Temp Pulse Resp BP Pulse Ox 98.2 F 82 20 123/63 95 01/12/18 07:54 01/12/18 07:54 01/12/18 07:54 01/12/18 07:54 01/12/18 07:54 Intake and Output: 01/12/18 01/12/18 06:59 18:59 Intake Total Output Total Balance - Medications Medications: Current Medications Enoxaparin Sodium (Lovenox) 30 mg SC DAILY ALFREDO PRN Reason: Protocol Last Admin: 01/12/18 10:06 Dose: 30 mg Iron Sucrose 100 mg/ Sodium (Chloride) 105 mls @ 100 mls/hr IVPB DAILY [facility] Last Admin: 01/11/18 11:38 Dose: 100 mls/hr Meropenem 1 gm/ Sodium (Chloride) 100 mls @ 100 mls/hr IVPB Q12 ALFREDO PRN Reason: Protocol Last Admin: 01/12/18 10:06 Dose: 100 mls/hr Vancomycin HCl 750 mg/ Sodium (Chloride) 250 mls @ 166.667 mls/hr IVPB DAILY [facility]O PRN Reason: Protocol Last Admin: 01/12/18 10:08 Dose: 166.667 mls/hr Potassium Chloride/Dextrose 20 ml/ Multivitamins/Vitamin C 10 ml/ Dextrose 1, 030 mls @ 60 mls/hr IV .[id number] [facility] Stop: 01/13/18 09:20 Last Admin: 01/12/18 11:12 Dose: 60 mls/hr Latanoprost (Xalatan Opht) 1 drop OU HS [facility] Last Admin: 01/11/18 21:23 Dose: 1 drop Ondansetron HCl (Zofran Inj) 4 mg IVP Q6 PRN PRN Reason: Nausea/Vomiting - Labs Labs: 01/12/18 06:30 01/12/18 06:30 PT 11.7 Seconds (9.8-13.1) 01/08/18 12:40 INR 1.1 (0.9-1.2) 01/08/18 12:40 APTT 26.4 Seconds (25.6-37.1) 01/08/18 12:40 - Constitutional Appears: No Acute Distress - Head Exam Head Exam: NORMAL INSPECTION, NORMOCEPHALIC - Eye Exam Eye Exam: EOMI, Normal appearance Pupil Exam: NORMAL ACCOMODATION - ENT Exam ENT Exam: Mucous Membranes Dry, Normal External Ear Exam - Neck Exam Neck Exam: Full ROM. absent: Meningismus - Respiratory Exam Respiratory Exam: NORMAL BREATHING PATTERN. absent: Respiratory Distress - Cardiovascular Exam Cardiovascular Exam: REGULAR RHYTHM, +S1, +S2 - GI/Abdominal Exam GI & Abdominal Exam: Soft, Normal Bowel Sounds. absent: Tenderness Additional comments: Abd wall fistula with greenish brown drainage, Colostomy bag placed to collect drainage - Extremities Exam Extremities Exam: Full ROM, Normal Capillary Refill. absent: Calf Tenderness - Back Exam Back Exam: Full ROM. absent: CVA tenderness (L), CVA tenderness (R) - Neurological Exam Neurological Exam: Alert, Awake, CN II-XII Intact, Oriented x3 Neuro motor strength exam: Left Upper Extremity: 5, Right Upper Extremity: 5, Left Lower Extremity: 5, Right Lower Extremity: 5 - Psychiatric Exam Psychiatric exam: Normal Affect, Normal Mood - Skin Skin Exam: Dry, Normal Color, Warm Assessment and Plan - Assessment and Plan (Free Text) Assessment: 87 yo female with a past medical history of arthritis and hypertension was recently admitted to [facility] on 11/25/2017 fo Cholecystitis, underwent Lap tyesha and iatrogenic enterotomy. At home her surgical wound started draining some mucoid greenish material and she was advised to come in for evaluation by her surgeon. 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 Patient was admitted , started on IV Zosyn and Flagyl , kept NPO , and managed conservatively with NPO , TPN, and IV antibiotics. Wound cultures were reported as positive for Serratia Liquefaciens and antibiotics changed to Meropenem IV. Patient's drainage resolved and diet was upgraded to regular and she tolerated well and was sent home. 01/08/18 : returns with drainage from fistula again. CT abdomen showed enterocutaneous fistula with a tract better delineated on the current examination, well delineated by oral contrast material including umbilicus or periumbilical abdominal wall deformity. Admitted and started on IVF and IV meropenem 1. Enterocutaneous Fistula Surgery consulted and case discussed. Will continue conservative treatment for 1 week. Keep patient NPO and continue IVF PICC line placed . Plan to start TPN however I was informed by Pharmacy that there is a back order for TPN and it is not available at the moment , will check in am if they can get some cont D10 with KCl and MVI ID consulted cont Meropenem IV and IV Vanco Wound c/s : E coli and Enterococcus patient is afebrile with no WBC and no peritoneal signs Monitor fistula output closely. If output decreases to minimal no surgical intervention is necessary. If output continues to be significant patient will need surgery Continue wound care around fistula for skin erythema. Wound care 2. Anemia, chronic Hgb 7.8, stable pt refuses transfusion pt asymptomatic cont IV venofer 3. ? UTI Denies any dysuria or frequency Continue meropenem and Vanco empirically Urine c/s : E coli and Enterococcus 3. HTN BP stable monitor vitals Held metoprolol due to total NPO status will give IV antihypertensives prn 4. Hyperlipidemia Hold statin for now due to total NPO status 5. Acute Renal Insufficiency probably secondary to volume depletion Continue IV hydration 6. DVT prophylaxis Lovenox 30 mg sc
[2018-01-12] MEDS: Latanoprost 0.005% Opht SOUTION OU SCH (21:00)
[2018-01-13] MEDS: DEXTROSE IV SCH (03:55)
[2018-01-13] MEDS: POTASSIUM CH IV SCH (03:55)
[2018-01-13] MEDS: [UNRECOGNIZED DRUG - OTHER] IV SCH (03:55)
[2018-01-13] MEDS: MULTIVITAMIN IV SCH (03:55)
[2018-01-13] MEDS: D5W IV SCH (03:55)
--- NOTE | 2018-01-13 08:37 | CP.PCM.PN ---
<Niles Sanchez - Last Filed: 01/13/18 08:33> Subjective - Date & Time of Evaluation Date of Evaluation: 01/13/18 Time of Evaluation: 08:33 - Subjective Subjective: General Surgery Progress Note For Dr. Lawler This 87F was seen and examined this AM at bedside. No acute events overnight. She had 100cc output from her EC fistula over the last 24 hours. She denies any pain however she reports frustration over her leaking ostomy appliance. Denies SOB or chest pain. Objective - Vital Signs/Intake and Output Vital Signs (last 24 hours): Temp Pulse Resp BP Pulse Ox 98.1 F 67 20 127/69 98 01/13/18 07:59 01/13/18 07:59 01/13/18 07:59 01/13/18 07:59 01/13/18 07:59 Intake and Output: 01/13/18 01/13/18 06:59 18:59 Intake Total 745 Output Total 40 Balance 705 - Medications Medications: Current Medications Enoxaparin Sodium (Lovenox) 30 mg SC DAILY ALFREDO PRN Reason: Protocol Last Admin: 01/12/18 10:06 Dose: 30 mg Iron Sucrose 100 mg/ Sodium (Chloride) 105 mls @ 100 mls/hr IVPB DAILY [facility] Last Admin: 01/12/18 15:16 Dose: 100 mls/hr Meropenem 1 gm/ Sodium (Chloride) 100 mls @ 100 mls/hr IVPB Q12 ALFREDO PRN Reason: Protocol Last Admin: 01/12/18 20:57 Dose: 100 mls/hr Vancomycin HCl 750 mg/ Sodium (Chloride) 250 mls @ 166.667 mls/hr IVPB DAILY [facility]EDO PRN Reason: Protocol Last Admin: 01/12/18 10:08 Dose: 166.667 mls/hr Potassium Chloride/Dextrose 20 ml/ Multivitamins/Vitamin C 10 ml/ Dextrose 1, 030 mls @ 60 mls/hr IV .[id number] ALFREDO Stop: 01/13/18 09:20 Last Admin: 01/13/18 03:55 Dose: 60 mls/hr Latanoprost (Xalatan Opht) 1 drop OU HS [facility] Last Admin: 01/12/18 21:00 Dose: 1 drop Ondansetron HCl (Zofran Inj) 4 mg IVP Q6 PRN PRN Reason: Nausea/Vomiting - Labs Labs: 01/12/18 06:30 01/12/18 06:30 PT 11.7 Seconds (9.8-13.1) 01/08/18 12:40 INR 1.1 (0.9-1.2) 01/08/18 12:40 APTT 26.4 Seconds (25.6-37.1) 01/08/18 12:40 - Constitutional Appears: Non-toxic - Head Exam Head Exam: ATRAUMATIC, NORMOCEPHALIC - Eye Exam Eye Exam: EOMI - ENT Exam ENT Exam: Mucous Membranes Moist - Respiratory Exam Respiratory Exam: NORMAL BREATHING PATTERN - Cardiovascular Exam Cardiovascular Exam: REGULAR RHYTHM - GI/Abdominal Exam GI & Abdominal Exam: Soft. absent: Guarding, Rigid, Tenderness, Mass Additional comments: Enterocutaneous fistula with leaky appliance. - Neurological Exam Neurological Exam: Alert, Awake - Psychiatric Exam Psychiatric exam: Normal Mood - Skin Skin Exam: Dry Assessment and Plan - Assessment and Plan (Free Text) Assessment: 87F with an entero cutaneous fistula. NPO IVF Abx as per ID TPN Strict I/O's OOBTC Ambulate with assistance DW Dr. Bucky Sanchez PGY2 <Michael Lawler - Last Filed: 01/13/18 10:05> Subjective - Date & Time of Evaluation Time of Evaluation: 09:30 - Subjective Subjective: Patient was seen and examined at the bedside. Agree with resident's note above. Objective - Vital Signs/Intake and Output Vital Signs (last 24 hours): Temp Pulse Resp BP Pulse Ox 98.1 F 67 20 127/69 98 01/13/18 09:50 01/13/18 09:50 01/13/18 09:50 01/13/18 09:50 01/13/18 09:50 Intake and Output: 01/13/18 01/13/18 06:59 18:59 Intake Total 745 Output Total 40 Balance 705 - Medications Medications: Current Medications Enoxaparin Sodium (Lovenox) 30 mg SC DAILY ALFREDO PRN Reason: Protocol Last Admin: 01/13/18 09:02 Dose: 30 mg Iron Sucrose 100 mg/ Sodium (Chloride) 105 mls @ 100 mls/hr IVPB [facility]ILY [facility] Last Admin: 01/12/18 15:16 Dose: 100 mls/hr Meropenem 1 gm/ Sodium (Chloride) 100 mls @ 100 mls/hr IVPB Q12 ALFREDO PRN Reason: Protocol Last Admin: 01/13/18 09:01 Dose: 100 mls/hr Vancomycin HCl 750 mg/ Sodium (Chloride) 250 mls @ 166.667 mls/hr IVPB DAILY ALFREDO PRN Reason: Protocol Last Admin: 01/13/18 09:01 Dose: 166.667 mls/hr Latanoprost (Xalatan Opht) 1 drop OU HS [facility]O Last Admin: 01/12/18 21:00 Dose: 1 drop Ondansetron HCl (Zofran Inj) 4 mg IVP Q6 PRN PRN Reason: Nausea/Vomiting - Labs Labs: 01/12/18 06:30 01/12/18 06:30 PT 11.7 Seconds (9.8-13.1) 01/08/18 12:40 INR 1.1 (0.9-1.2) 01/08/18 12:40 APTT 26.4 Seconds (25.6-37.1) 01/08/18 12:40
[2018-01-13] MEDS: Meropenem 1 GM in Sodium Chloride 0.9% 100 ML IVPB SCH ×2 (09:01→21:18)
[2018-01-13] MEDS: Enoxaparin 30 mg Syringe SC SCH (09:02)
[2018-01-13] MEDS ORDERED: ZINC IV ONE (11:00)
[2018-01-13] MEDS ORDERED: MANGANESE IV ONE (11:00)
[2018-01-13] MEDS ORDERED: COPPER IV ONE (11:00)
[2018-01-13] MEDS ORDERED: MULTIVITAMIN IV ONE (11:00)
[2018-01-13] MEDS ORDERED: [UNRECOGNIZED DRUG - OTHER] IV ONE (11:00)
[2018-01-13] MEDS ORDERED: CHROMIUM IV ONE (11:00)
[2018-01-13] MEDS ORDERED: ELECTROLYTES IV ONE (11:00)
--- NOTE | 2018-01-13 11:24 | CP.PCM.PN ---
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 redness around the area had leakage from fistula bag this am was unable to sleep last night - would like even just one dose of Ultram today denies CP no SOB Objective - Vital Signs/Intake and Output Vital Signs (last 24 hours): Temp Pulse Resp BP Pulse Ox 98.1 F 67 20 127/69 98 01/13/18 09:50 01/13/18 09:50 01/13/18 09:50 01/13/18 09:50 01/13/18 09:50 Intake and Output: 01/13/18 01/13/18 06:59 18:59 Intake Total 745 Output Total 40 Balance 705 - Medications Medications: Current Medications Enoxaparin Sodium (Lovenox) 30 mg SC DAILY ALFREDO PRN Reason: Protocol Last Admin: 01/13/18 09:02 Dose: 30 mg Iron Sucrose 100 mg/ Sodium (Chloride) 105 mls @ 100 mls/hr IVPB DAILY COUNTS [facility]CLUDE [facility] BEDS AT THE [facility] Last Admin: 01/12/18 15:16 Dose: 100 mls/hr Meropenem 1 gm/ Sodium (Chloride) 100 mls @ 100 mls/hr IVPB Q12 ALFREDO PRN Reason: Protocol Last Admin: 01/13/18 09:01 Dose: 100 mls/hr Vancomycin HCl 750 mg/ Sodium (Chloride) 250 mls @ 166.667 mls/hr IVPB DAILY ALFREDO PRN Reason: Protocol Last Admin: 01/13/18 09:01 Dose: 166.667 mls/hr Multivitamins/Vitamin C 10 ml/Chromium/Copper/Manganese/Zinc 3 ml/ Parenteral Electrolytes 20 ml/ Amino Acids 1,033 mls @ 35 mls/hr IV .Q24H ONE Stop: 01/14/18 10:59 Latanoprost (Xalatan Opht) 1 drop OU HS COUNTS INCLUDE 234 BEDS AT THE [facility] Last Admin: 01/12/18 21:00 Dose: 1 drop Ondansetron HCl (Zofran Inj) 4 mg IVP Q6 PRN PRN Reason: Nausea/Vomiting - Labs Labs: 01/12/18 06:30 01/12/18 06:30 PT 11.7 Seconds (9.8-13.1) 01/08/18 12:40 INR 1.1 (0.9-1.2) 01/08/18 12:40 APTT 26.4 Seconds (25.6-37.1) 01/08/18 12:40 - Constitutional Appears: No Acute Distress - Head Exam Head Exam: NORMAL INSPECTION, NORMOCEPHALIC - Eye Exam Eye Exam: EOMI, Normal appearance Pupil Exam: NORMAL ACCOMODATION - ENT Exam ENT Exam: Mucous Membranes Dry, Normal External Ear Exam - Neck Exam Neck Exam: Full ROM. absent: Meningismus - Respiratory Exam Respiratory Exam: NORMAL BREATHING PATTERN. absent: Respiratory Distress - Cardiovascular Exam Cardiovascular Exam: REGULAR RHYTHM, +S1, +S2 - GI/Abdominal Exam GI & Abdominal Exam: Soft, Normal Bowel Sounds. absent: Tenderness Additional comments: Abd wall fistula with greenish brown drainage, Colostomy bag placed to collect drainage - Extremities Exam Extremities Exam: Full ROM, Normal Capillary Refill. absent: Calf Tenderness - Back Exam Back Exam: Full ROM. absent: CVA tenderness (L), CVA tenderness (R) - Neurological Exam Neurological Exam: Alert, Awake, CN II-XII Intact, Oriented x3 Neuro motor strength exam: Left Upper Extremity: 5, Right Upper Extremity: 5, Left Lower Extremity: 5, Right Lower Extremity: 5 - Psychiatric Exam Psychiatric exam: Normal Affect, Normal Mood - Skin Skin Exam: Dry, Normal Color, Warm Assessment and Plan - Assessment and Plan (Free Text) Assessment: 87 yo female with a past medical history of arthritis and hypertension was recently admitted to [facility] on 11/25/2017 fo Cholecystitis, underwent Lap tyesha and iatrogenic enterotomy. At home her surgical wound started draining some mucoid greenish material and she was advised to come in for evaluation by her surgeon. 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 Patient was admitted , started on IV Zosyn and Flagyl , kept NPO , and managed conservatively with NPO , TPN, and IV antibiotics. Wound cultures were reported as positive for Serratia Liquefaciens and antibiotics changed to Meropenem IV. Patient's drainage resolved and diet was upgraded to regular and she tolerated well and was sent home. 01/08/18 : returns with drainage from fistula again. CT abdomen showed enterocutaneous fistula with a tract better delineated on the current examination, well delineated by oral contrast material including umbilicus or periumbilical abdominal wall deformity. Admitted and started on IVF and IV meropenem 1. Enterocutaneous Fistula Surgery consulted and case discussed. Will continue conservative treatment for 1 week. Keep patient NPO started TPN today PICC line placed . ID consulted and is following pt cont Meropenem IV and IV Vanco Wound c/s : E coli and Enterococcus patient is afebrile with no WBC and no peritoneal signs Monitor fistula output closely. If output decreases to minimal no surgical intervention is necessary. If output continues to be significant patient will need probsurgery Continue wound care around fistula for skin erythema. Wound care 2. Anemia, chronic Hgb 7.8, stable pt refuses transfusion pt asymptomatic cont IV venofer 3. ? UTI Denies any dysuria or frequency Continue meropenem and Vanco empirically Urine c/s : E coli and Enterococcus 3. HTN BP stable monitor vitals Held metoprolol due to total NPO status will give IV antihypertensives prn 4. Hyperlipidemia Hold statin for now due to total NPO status 5. Acute Renal Insufficiency probably secondary to volume depletion Continue IV hydration 6. DVT prophylaxis Lovenox 30 mg sc
--- NOTE | 2018-01-13 12:24 | CP.PCM.PN ---
Subjective - Date & Time of Evaluation Date of Evaluation: 01/13/18 Time of Evaluation: 14:00 - Subjective Subjective: ID Note- Pt. seen and examined today. She denies any fever or chills, denies any abd. pain but states is having some leakage from the fistula site eventhough they replaced her colostomy bag earlier today. Objective - Vital Signs/Intake and Output Vital Signs (last 24 hours): Temp Pulse Resp BP Pulse Ox 98.1 F 67 20 127/69 98 01/13/18 09:50 01/13/18 09:50 01/13/18 09:50 01/13/18 09:50 01/13/18 09:50 Intake and Output: 01/13/18 01/13/18 06:59 18:59 Intake Total 745 Output Total 40 Balance 705 - Medications Medications: Current Medications Enoxaparin Sodium (Lovenox) 30 mg SC DAILY ALFREDO PRN Reason: Protocol Last Admin: 01/13/18 09:02 Dose: 30 mg Iron Sucrose 100 mg/ Sodium (Chloride) 105 mls @ 100 mls/hr IVPB DAILY [facility] Last Admin: 01/13/18 12:14 Dose: 100 mls/hr Meropenem 1 gm/ Sodium (Chloride) 100 mls @ 100 mls/hr IVPB Q12 ALFREDO PRN Reason: Protocol Last Admin: 01/13/18 09:01 Dose: 100 mls/hr Vancomycin HCl 750 mg/ Sodium (Chloride) 250 mls @ 166.667 mls/hr IVPB DAILY ALFREDO PRN Reason: Protocol Last Admin: 01/13/18 09:01 Dose: 166.667 mls/hr Multivitamins/Vitamin C 10 ml/Chromium/Copper/Manganese/Zinc 3 ml/ Parenteral Electrolytes 20 ml/ Amino Acids 1,033 mls @ 35 mls/hr IV .Q24H ONE Stop: 01/14/18 10:59 Last Admin: 01/13/18 12:14 Dose: 35 mls/hr Latanoprost (Xalatan Opht) 1 drop OU HS [facility] Last Admin: 01/12/18 21:00 Dose: 1 drop Ondansetron HCl (Zofran Inj) 4 mg IVP Q6 PRN PRN Reason: Nausea/Vomiting - Labs Labs: 0 - Additional Findings Additional findings: - Constitutional Appears: No Acute Distress - Head Exam Head Exam: ATRAUMATIC - Eye Exam Eye Exam: EOMI, PERRL - ENT Exam ENT Exam: Normal Oropharynx - Neck Exam Neck exam: Positive for: Full Rom - Respiratory Exam Respiratory Exam: Clear to Auscultation Bilateral, NORMAL BREATHING PATTERN - Cardiovascular Exam Cardiovascular Exam: RRR, +S1, +S2 - GI/Abdominal Exam GI & Abdominal Exam: Normal Bowel Sounds, Soft Additional comments: NT, ND midabdminal area small opening with green discharge, currently has colostomy bag covering it but the inferior part of the bag is leaking no surrounding erythema - Extremities Exam Extremities exam: Positive for: normal inspection Neuro- AAO x 3 Laboratory Results - last 72 hr 01/11/18 01/11/18 01/12/18 06:10 06:10 04:32 WBC 5.5 RBC 2.42 L Hgb 7.8 L Hct 23.8 L MCV 98.6 MCH 32.3 H MCHC 32.8 L RDW 14.9 H Plt Count 312 Sodium 147 Potassium 3.6 Chloride 110 H Carbon Dioxide 25 Anion Gap 16 BUN 14 Creatinine 1.1 Est GFR ( Amer) 57 Est GFR (Non-Af Amer) 47 POC Glucose (mg/dL) 130 H Random Glucose 101 Calcium 8.7 Phosphorus 3.7 Magnesium 1.8 Triglycerides 89 D 01/12/18 01/12/18 01/12/18 06:30 06:30 11:32 WBC 4.8 RBC 2.44 L Hgb 7.8 L Hct 23.9 L MCV 98.1 MCH 32.0 H MCHC 32.6 L RDW 14.8 H Plt Count 296 Sodium 143 Potassium 3.6 Chloride 105 Carbon Dioxide 28 Anion Gap 14 BUN 12 Creatinine 0.9 Est GFR ( Amer) > 60 Est GFR (Non-Af Amer) 60 POC Glucose (mg/dL) 86 Random Glucose 127 H Calcium 8.6 Phosphorus Magnesium Triglycerides Microbiology 01/08/18 13:00 Blood-Venous Blood Culture - Final NO GROWTH AFTER 5 DAYS 01/08/18 12:30 Blood-Venous Blood Culture - Final NO GROWTH AFTER 5 DAYS 01/08/18 14:27 Urine,Clean Catch Urine Culture - Final Escherichia Coli Enterococcus Faecalis 01/08/18 13:27 Abdomen Gram Stain - Final 01/08/18 13:27 Abdomen Wound Culture - Final Escherichia Coli Enterococcus Faecalis Assessment and Plan (1) Enterocutaneous fistula Status: Acute (2) S/P laparoscopic cholecystectomy Status: Acute - Assessment and Plan (Free Text) Assessment: A/P- 87 year old female s/p recent lap tyesha with subsequent enterocutaneous fistula formation with serratia growth from the wound cx from last admission last month and completed 10 days of IV antibiotics and wound opening had closed, who now presents to ED with opening again at site of the fistula in midabdomen with yellow -green discharge. afebrile normal wbc count + UA urine cx - e.coli not esbl, e.fecalis Wound cx prelim- e.coli and e.fecalis blood cx- neg x 2 plan- has completed 5 days of IV meropenem continue with meropnem till less dishcarge from the fistula site continue with IV vanconycin for now, day #3 for e.fecalis from the wound and urine cx. keep vanco trough <15. colostomy bag management as per surgical team.
[2018-01-13] MEDS: Latanoprost 0.005% Opht SOUTION OU SCH (21:19)
[2018-01-13] MEDS ORDERED: DiphenhydrAMINE 50 mg/ml Inj IVP STA (22:11)
[2018-01-14 06:19] LABS: BASO % 0.8 % (0.0-2.0); EOS # 0.2 K/uL (0.0-0.7); EOS % 3.7 % (0.0-4.0); HEMOGLOBIN 8.5 g/dL (12.0-16.0); LYMPH # 1.5 K/uL (1.0-4.3); LYMPH % 27.5 % (20.0-40.0); MEAN CELL VOLUME 96.1 fl (81.0-99.0); MEAN CORPUSCULAR HEMOGLOBIN 32.2 pg (27.0-31.0); MEAN CORPUSCULAR HGB CONC 33.5 g/dL (33.0-37.0); MEAN PLATELET VOLUME 6.8 fl (7.2-11.7); MONO # 0.7 K/uL (0.0-0.8); MONO % 11.9 % (0.0-10.0); NEUT # 3.1 K/uL (1.8-7.0); NEUT % 56.1 % (50.0-75.0); NRBC % 0.1 % (0.0-0.0); RBC 2.64 Mil/uL (3.80-5.20); RED CELL DISTRIBUTION WIDTH 14.3 % (11.5-14.5); WHITE BLOOD COUNT 5.5 K/uL (4.8-10.8)
[2018-01-14 06:47] LABS: ALB/GLOB RATIO 0.9 (1.0-2.1); ALBUMIN 2.8 g/dL (3.5-5.0); ALT/SGPT 20 U/L (9-52); AST/SGOT 32 U/L (14-36); BLOOD UREA NITROGEN 9 mg/dl (7-17); CALCIUM 8.6 mg/dL (8.4-10.2); GFR AFRICAN-AMERICAN > 60; GFR NON-AFRICAN AMERICAN > 60
[2018-01-14] MEDS: Enoxaparin 30 mg Syringe SC SCH (09:06)
[2018-01-14] MEDS: Meropenem 1 GM in Sodium Chloride 0.9% 100 ML IVPB SCH ×2 (09:07→20:43)
--- NOTE | 2018-01-14 09:09 | CP.PCM.PN ---
Subjective - Date & Time of Evaluation Date of Evaluation: 01/14/18 Time of Evaluation: 09:00 - Subjective Subjective: Patient was seen and examined at the bedside. Denies any abdominal pain. Objective - Vital Signs/Intake and Output Vital Signs (last 24 hours): Temp Pulse Resp BP Pulse Ox 97.3 F L 89 18 155/71 H 98 01/14/18 07:49 01/14/18 07:49 01/14/18 07:49 01/14/18 07:49 01/14/18 07:49 Intake and Output: 01/14/18 01/14/18 06:59 18:59 Intake Total 1005 Output Total 10 Balance 995 - Medications Medications: Current Medications Enoxaparin Sodium (Lovenox) 30 mg SC DAILY ALFREDO PRN Reason: Protocol Last Admin: 01/13/18 09:02 Dose: 30 mg Iron Sucrose 100 mg/ Sodium (Chloride) 105 mls @ 100 mls/hr IVPB DAILY [facility] Last Admin: 01/13/18 12:14 Dose: 100 mls/hr Meropenem 1 gm/ Sodium (Chloride) 100 mls @ 100 mls/hr IVPB Q12 ALFREDO PRN Reason: Protocol Last Admin: 01/13/18 21:18 Dose: 100 mls/hr Vancomycin HCl 750 mg/ Sodium (Chloride) 250 mls @ 166.667 mls/hr IVPB DAILY [facility]O PRN Reason: Protocol Last Admin: 01/13/18 09:01 Dose: 166.667 mls/hr Multivitamins/Vitamin C 10 ml/Chromium/Copper/Manganese/Zinc 3 ml/ Parenteral Electrolytes 20 ml/ Amino Acids 1,033 mls @ 35 mls/hr IV .Q24H ONE Stop: 01/14/18 10:59 Last Admin: 01/13/18 12:14 Dose: 35 mls/hr Latanoprost (Xalatan Opht) 1 drop OU HS [facility] Last Admin: 01/13/18 21:19 Dose: 1 drop Ondansetron HCl (Zofran Inj) 4 mg IVP Q6 PRN PRN Reason: Nausea/Vomiting - Labs Labs: 01/14/18 05:40 01/14/18 05:40 PT 11.7 Seconds (9.8-13.1) 01/08/18 12:40 INR 1.1 (0.9-1.2) 01/08/18 12:40 APTT 26.4 Seconds (25.6-37.1) 01/08/18 12:40 - Constitutional Appears: Well, Non-toxic, No Acute Distress - Head Exam Head Exam: ATRAUMATIC, NORMAL INSPECTION, NORMOCEPHALIC - Eye Exam Eye Exam: EOMI, Normal appearance, PERRL Pupil Exam: NORMAL ACCOMODATION, PERRL - ENT Exam ENT Exam: Mucous Membranes Moist, Normal Exam - Neck Exam Neck Exam: Full ROM, Normal Inspection - Respiratory Exam Respiratory Exam: NORMAL BREATHING PATTERN - Cardiovascular Exam Cardiovascular Exam: REGULAR RHYTHM, +S1, +S2 - GI/Abdominal Exam GI & Abdominal Exam: Soft, Normal Bowel Sounds Additional comments: NT, ND, no rebound, no guarding, EC fistula with ostomy appliance - Rectal Exam Rectal Exam: Deferred - Extremities Exam Extremities Exam: Full ROM, Normal Inspection - Neurological Exam Neurological Exam: Alert, Awake, Oriented x3 - Psychiatric Exam Psychiatric exam: Normal Affect, Normal Mood - Skin Skin Exam: Dry, Intact, Normal Color, Warm Assessment and Plan - Assessment and Plan (Free Text) Assessment: 87 y.o. female with low output of EC fistula Plan: - Keep NPO - IV fluids - TPN when available - Monitor fistula output - Antibiotics as per ID - Repeat labs in am - Will follow
[2018-01-14] MEDS ORDERED: POTASSIUM PHOSPHATE IV ONE (14:15)
[2018-01-14] MEDS ORDERED: DEXTROSE IV ONE (14:15)
[2018-01-14] MEDS ORDERED: AMINO ACIDS IV ONE (14:15)
--- NOTE | 2018-01-14 17:51 | CP.PCM.PN ---
Subjective - Date & Time of Evaluation Date of Evaluation: 01/14/18 Time of Evaluation: 12:30 - Subjective Subjective: Patient seen and examined bedside. Feeling a little better . Denies any pain or discomfort . Hemodsynamically stable, afebrile No acute issues overnight. 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 Objective - Vital Signs/Intake and Output Vital Signs (last 24 hours): Temp Pulse Resp BP Pulse Ox 98.7 F 88 20 166/80 H 97 01/14/18 15:39 01/14/18 15:39 01/14/18 15:39 01/14/18 15:39 01/14/18 15:39 Intake and Output: 01/14/18 01/14/18 06:59 18:59 Intake Total 1005 Output Total 10 Balance 995 - Medications Medications: Current Medications Fat Emulsion Intravenous (Intralipid 20%) 250 ml IV DAILY ONE Stop: 01/14/18 18:01 Iron Sucrose 100 mg/ Sodium (Chloride) 105 mls @ 100 mls/hr IVPB DAILY [facility] Last Admin: 01/14/18 14:53 Dose: 100 mls/hr Meropenem 1 gm/ Sodium (Chloride) 100 mls @ 100 mls/hr IVPB Q12 [facility] PRN Reason: Protocol Last Admin: 01/14/18 09:07 Dose: 100 mls/hr Vancomycin HCl 750 mg/ Sodium (Chloride) 250 mls @ 166.667 mls/hr IVPB DAILY [facility] PRN Reason: Protocol Last Admin: 01/14/18 09:07 Dose: 166.667 mls/hr Potassium Phosphate 10.5 mmole (/ Amino Acids) 1,003.5 mls @ 35 mls/hr IV .Q24H ONE Stop: 01/15/18 14:14 Last Admin: 01/14/18 15:38 Dose: 35 mls/hr Latanoprost (Xalatan Opht) 1 drop OU HS [facility] Last Admin: 01/13/18 21:19 Dose: 1 drop Ondansetron HCl (Zofran Inj) 4 mg IVP Q6 PRN PRN Reason: Nausea/Vomiting - Labs Labs: 01/14/18 05:40 01/14/18 05:40 PT 11.7 Seconds (9.8-13.1) 01/08/18 12:40 INR 1.1 (0.9-1.2) 01/08/18 12:40 APTT 26.4 Seconds (25.6-37.1) 01/08/18 12:40 - Constitutional Appears: Non-toxic, No Acute Distress - Head Exam Head Exam: ATRAUMATIC, NORMAL INSPECTION, NORMOCEPHALIC - Eye Exam Eye Exam: EOMI, Normal appearance, PERRL Pupil Exam: NORMAL ACCOMODATION - ENT Exam ENT Exam: Mucous Membranes Moist, Normal Exam - Neck Exam Neck Exam: Full ROM, Normal Inspection - Respiratory Exam Respiratory Exam: Clear to Ausculation Bilateral, NORMAL BREATHING PATTERN. absent: Wheezes, Respiratory Distress - Cardiovascular Exam Cardiovascular Exam: REGULAR RHYTHM, +S1, +S2. absent: JVD - GI/Abdominal Exam GI & Abdominal Exam: Soft. 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 absent : Calf Tenderness, Pedal Edema - Back Exam Back Exam: NORMAL INSPECTION - Neurological Exam Neurological Exam: Alert, Awake, CN II-XII Intact, Oriented x3 - Psychiatric Exam Psychiatric exam: Anxious, Flat Affect - Skin Skin Exam: Dry, Pallor, Warm Assessment and Plan - Assessment and Plan (Free Text) Assessment: 87 yo female with a past medical history of arthritis and hypertension was recently admitted to [facility] on 11/25/2017 for Cholecystitis, underwent Lap tyesha and developed iatrogenic enterotomy. At home her surgical wound started draining some mucoid greenish material and she was advised to come in for evaluation by her surgeon. 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 Patient was admitted , started on IV Zosyn and Flagyl , kept NPO , and managed conservatively with NPO, TPN, and IV antibiotics. Wound cultures were reported as positive for Serratia Liquefaciens and antibiotics changed to Meropenem IV. Patient's drainage resolved and diet was upgraded to regular and she tolerated well and was sent home. 01/08/18 : returns with drainage from fistula again. CT abdomen showed enterocutaneous fistula with a tract better delineated on the current examination, well delineated by oral contrast material including umbilicus or periumbilical abdominal wall deformity. Admitted and started on IVF and IV meropenem At present the drainage from fistula is decreasing .Still NPO and on TPN 1. Enterocutaneous Fistula Surgery consulted and case discussed. Will continue conservative treatment for 1 week. Keep patient NPO Continue TPN and lipid daily as per construction coordinator recommendations Check Mg , Ph , K daily PICC line placed . ID consulted and is following pt Wound cx and urine positive for E. Coli and enterococcus faecalis cont Meropenem IV and IV Vanco Fistula output decreasing ( 85 ml last 254 hours).If output is minimal no surgical intervention is necessary otherwise patient will need surgery Continue wound care around fistula . wound care consulted 2. Anemia, chronic stable pt refuses transfusion pt asymptomatic on IV venofer 3.UTI Denies any dysuria or frequency Continue meropenem and Vanco Urine c/s positive FOR E coli and Enterococcus 4. HTN BP stable monitor vitals Held metoprolol due to total NPO status 5. Hyperlipidemia Hold statin for now due to total NPO status 6. Acute Renal Insufficiency probably secondary to volume depletion Continue IV hydration 7. DVT prophylaxis Lovenox 30 mg sc
[2018-01-14] MEDS: Latanoprost 0.005% Opht SOUTION OU SCH (22:01)
[2018-01-15 06:47] LABS: BASO % 0.7 % (0.0-2.0); EOS # 0.2 K/uL (0.0-0.7); EOS % 2.9 % (0.0-4.0); HEMOGLOBIN 9.3 g/dL (12.0-16.0); LYMPH # 2.2 K/uL (1.0-4.3); LYMPH % 34.1 % (20.0-40.0); MEAN CELL VOLUME 96.3 fl (81.0-99.0); MEAN CORPUSCULAR HEMOGLOBIN 32.1 pg (27.0-31.0); MEAN CORPUSCULAR HGB CONC 33.4 g/dL (33.0-37.0); MEAN PLATELET VOLUME 7.2 fl (7.2-11.7); MONO # 0.8 K/uL (0.0-0.8); MONO % 12.3 % (0.0-10.0); NEUT # 3.3 K/uL (1.8-7.0); NRBC % 0.2 % (0.0-0.0); RBC 2.9 Mil/uL (3.80-5.20); RED CELL DISTRIBUTION WIDTH 14.2 % (11.5-14.5); WHITE BLOOD COUNT 6.6 K/uL (4.8-10.8)
[2018-01-15 07:01] LABS: BLOOD UREA NITROGEN 13 mg/dl (7-17); CALCIUM 8.6 mg/dL (8.4-10.2); GFR AFRICAN-AMERICAN > 60; GFR NON-AFRICAN AMERICAN > 60
[2018-01-15] MEDS: Meropenem 1 GM in Sodium Chloride 0.9% 100 ML IVPB SCH ×2 (09:03→21:00)
--- NOTE | 2018-01-15 09:39 | CP.PCM.PN ---
Subjective - Date & Time of Evaluation Date of Evaluation: 01/15/18 Time of Evaluation: 09:00 - Subjective Subjective: Patient seen and examined bedside. Elderly female of stated age, lying in bed in NAD , denies pain or discomfort. Feeling a little better , pale. Hemodynamically stable, afebrile colostomy to mid abdomen enetrocutaneous fistula with 80 ml output of bilious fluid last 24 hours Objective - Vital Signs/Intake and Output Vital Signs (last 24 hours): Temp Pulse Resp BP Pulse Ox 98.3 F 90 18 166/89 H 98 01/15/18 07:31 01/15/18 07:31 01/15/18 07:31 01/15/18 07:31 01/15/18 07:31 Intake and Output: 01/15/18 01/15/18 06:59 18:59 Intake Total 770 Output Total 30 Balance 740 - Medications Medications: Current Medications Fat Emulsion Intravenous (Intralipid 20%) 250 ml IV DAILY [facility] Last Admin: 01/15/18 09:05 Dose: Not Given Iron Sucrose 100 mg/ Sodium (Chloride) 105 mls @ 100 mls/hr IVPB DAILY [facility] Last Admin: 01/14/18 14:53 Dose: 100 mls/hr Meropenem 1 gm/ Sodium (Chloride) 100 mls @ 100 mls/hr IVPB Q12 [facility] PRN Reason: Protocol Last Admin: 01/15/18 09:03 Dose: 100 mls/hr Vancomycin HCl 750 mg/ Sodium (Chloride) 250 mls @ 166.667 mls/hr IVPB DAILY [facility] PRN Reason: Protocol Last Admin: 01/15/18 09:04 Dose: 166.667 mls/hr Potassium Phosphate 10.5 mmole (/ Amino Acids) 1,003.5 mls @ 35 mls/hr IV .Q24H ONE Stop: 01/15/18 14:14 Last Admin: 01/14/18 15:38 Dose: 35 mls/hr Latanoprost (Xalatan Opht) 1 drop OU HS [facility] Last Admin: 01/14/18 22:01 Dose: 1 drop Metoprolol Tartrate (Lopressor) 5 mg IVP Q12 [facility] Ondansetron HCl (Zofran Inj) 4 mg IVP Q6 PRN PRN Reason: Nausea/Vomiting - Labs Labs: 01/15/18 06:10 01/15/18 06:10 PT 11.7 Seconds (9.8-13.1) 01/08/18 12:40 INR 1.1 (0.9-1.2) 01/08/18 12:40 APTT 26.4 Seconds (25.6-37.1) 01/08/18 12:40 - Constitutional Appears: Non-toxic, No Acute Distress - Head Exam Head Exam: ATRAUMATIC, NORMAL INSPECTION, NORMOCEPHALIC - Eye Exam Eye Exam: EOMI, Normal appearance, PERRL Pupil Exam: NORMAL ACCOMODATION - ENT Exam ENT Exam: Mucous Membranes Dry, Normal Exam - Neck Exam Neck Exam: Full ROM, Normal Inspection - Respiratory Exam Respiratory Exam: Clear to Ausculation Bilateral, NORMAL BREATHING PATTERN. absent: Rales, Rhonchi, Wheezes - Cardiovascular Exam Cardiovascular Exam: REGULAR RHYTHM, RRR, +S1, +S2. absent: JVD - GI/Abdominal Exam GI & Abdominal Exam: Soft, Normal Bowel Sounds. absent: Distended, Guarding, Rebound Additional comments: mid abdomen enterocutaneous fistula with bilious output and colostomy bag in place - Rectal Exam Rectal Exam: Deferred - Extremities Exam Extremities Exam: Full ROM, Normal Capillary Refill, Normal Inspection. absent : Calf Tenderness, Pedal Edema - Back Exam Back Exam: NORMAL INSPECTION - Neurological Exam Neurological Exam: Alert, Awake, CN II-XII Intact, Oriented x3 - Psychiatric Exam Psychiatric exam: Anxious - Skin Skin Exam: Dry, Pallor, Warm Assessment and Plan - Assessment and Plan (Free Text) Assessment: 87 yo female with a past medical history of arthritis and hypertension was recently admitted to [facility] on 11/25/2017 for Cholecystitis, underwent Lap tyesha and developed iatrogenic enterotomy. At home her surgical wound started draining some mucoid greenish material and she was advised to come in for evaluation by her surgeon. 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 Patient was admitted , started on IV Zosyn and Flagyl , kept NPO , and managed conservatively with NPO, TPN, and IV antibiotics. Wound cultures were reported as positive for Serratia Liquefaciens and antibiotics changed to Meropenem IV. Patient's drainage resolved and diet was upgraded to regular and she tolerated well and was sent home. 01/08/18 : returns with drainage from fistula again. CT abdomen showed enterocutaneous fistula with a tract better delineated on the current examination, well delineated by oral contrast material including umbilicus or periumbilical abdominal wall deformity. Admitted and started on IVF and IV meropenem At present the drainage from fistula is decreasing . Last 24 hours only 80 ml output Still NPO and on TPN 1. Enterocutaneous Fistula Surgery consulted and case discussed again today with Dr. Lawler .output from fistula is decreasing . Will continue conservative treatment until beginning of next week . if no improvement patient may need surgical correction Keep patient NPO Continue TPN and lipid infusion daily as per water plumber recommendations with Mg , Ph andd K replacements Check Mg , Ph , K daily PICC line in place working well ID consulted and is following pt Wound cx and urine positive for E. Coli and enterococcus faecalis cont Meropenem IV and IV Vanco Continue wound care around fistula wound care consulted 2. Anemia, chronic stable Hgb 9.5 pt refused transfusion pt asymptomatic on IV venofer 3.UTI Denies any dysuria or frequency Continue meropenem and Vanco Urine c/s positive FOR E coli and Enterococcus 4. HTN BP stable monitor vitals Held metoprolol due to total NPO status started Metoprolol 5 mg IV BID 5. Hyperlipidemia Hold statin for now due to total NPO status 6. Acute Renal Insufficiency probably secondary to volume depletion Continue IV hydration 7. DVT prophylaxis Lovenox 30 mg sc
--- NOTE | 2018-01-15 10:08 | CP.PCM.PN ---
Subjective - Date & Time of Evaluation Date of Evaluation: 01/15/18 Time of Evaluation: 10:00 - Subjective Subjective: Patient was seen and examined at the bedside. Denies any abdominal pain, feeling better. Objective - Vital Signs/Intake and Output Vital Signs (last 24 hours): Temp Pulse Resp BP Pulse Ox 98.3 F 90 18 166/89 H 98 01/15/18 07:31 01/15/18 07:31 01/15/18 07:31 01/15/18 07:31 01/15/18 07:31 Intake and Output: 01/15/18 01/15/18 06:59 18:59 Intake Total 770 Output Total 30 Balance 740 - Medications Medications: Current Medications Fat Emulsion Intravenous (Intralipid 20%) 250 ml IV DAILY [facility] Last Admin: 01/15/18 09:05 Dose: Not Given Iron Sucrose 100 mg/ Sodium (Chloride) 105 mls @ 100 mls/hr IVPB DAILY [facility] Last Admin: 01/14/18 14:53 Dose: 100 mls/hr Meropenem 1 gm/ Sodium (Chloride) 100 mls @ 100 mls/hr IVPB Q12 [facility] PRN Reason: Protocol Last Admin: 01/15/18 09:03 Dose: 100 mls/hr Vancomycin HCl 750 mg/ Sodium (Chloride) 250 mls @ 166.667 mls/hr IVPB DAILY [facility] PRN Reason: Protocol Last Admin: 01/15/18 09:04 Dose: 166.667 mls/hr Potassium Phosphate 10.5 mmole (/ Amino Acids) 1,003.5 mls @ 35 mls/hr IV .Q24H ONE Stop: 01/15/18 14:14 Last Admin: 01/14/18 15:38 Dose: 35 mls/hr Latanoprost (Xalatan Opht) 1 drop OU HS [facility] Last Admin: 01/14/18 22:01 Dose: 1 drop Metoprolol Tartrate (Lopressor) 5 mg IVP Q12 [facility] Ondansetron HCl (Zofran Inj) 4 mg IVP Q6 PRN PRN Reason: Nausea/Vomiting - Labs Labs: 01/15/18 06:10 01/15/18 06:10 PT 11.7 Seconds (9.8-13.1) 01/08/18 12:40 INR 1.1 (0.9-1.2) 01/08/18 12:40 APTT 26.4 Seconds (25.6-37.1) 01/08/18 12:40 - Constitutional Appears: Well, Non-toxic, No Acute Distress - Head Exam Head Exam: ATRAUMATIC, NORMAL INSPECTION, NORMOCEPHALIC - Eye Exam Eye Exam: EOMI, Normal appearance, PERRL Pupil Exam: NORMAL ACCOMODATION, PERRL - ENT Exam ENT Exam: Mucous Membranes Moist, Normal Exam - Neck Exam Neck Exam: Full ROM, Normal Inspection - Respiratory Exam Respiratory Exam: NORMAL BREATHING PATTERN - Cardiovascular Exam Cardiovascular Exam: REGULAR RHYTHM, +S1, +S2 - GI/Abdominal Exam GI & Abdominal Exam: Soft, Normal Bowel Sounds Additional comments: NT, ND, no rebound, no guarding, EC fistula to the infra-umbilical area with minimal output - Rectal Exam Rectal Exam: Deferred - Extremities Exam Extremities Exam: Full ROM, Normal Inspection - Neurological Exam Neurological Exam: Alert, Awake, Oriented x3 - Psychiatric Exam Psychiatric exam: Normal Affect, Normal Mood - Skin Skin Exam: Dry, Intact, Normal Color, Warm Assessment and Plan - Assessment and Plan (Free Text) Assessment: 87 y.o. female with EC fistula Plan: - Keep NPO - IV fluids - TPN - Antibiotics as per ID - DVT ppx - Repeat labs in am - Monitor fistula output - Out of bed - Will follow
[2018-01-15] MEDS: Metoprolol 1 mg/ml Inj IVP SCH ×2 (10:22→21:00)
--- NOTE | 2018-01-15 14:56 | CP.PCM.PN ---
Subjective - Date & Time of Evaluation Date of Evaluation: 01/15/18 Time of Evaluation: 14:56 - Subjective Subjective: ID note- Pt. seen and examined today. pt. denies any fever or chills, denies any abdominal pain. denies any nausea. is still on TPN as per surgical team. as per nurse 80 ml of bilious drainage from the enetrocutaneous fistula in past 24 hours. no more leakage from the colostomy bag site. pt. denies any dysurea or any abd pain. Objective - Vital Signs/Intake and Output Vital Signs (last 24 hours): Temp Pulse Resp BP Pulse Ox 98 F 90 18 166/89 H 98 01/15/18 10:00 01/15/18 10:22 01/15/18 10:00 01/15/18 10:22 01/15/18 10:00 Intake and Output: 01/15/18 01/15/18 06:59 18:59 Intake Total 770 Output Total 30 Balance 740 - Medications Medications: Current Medications Fat Emulsion Intravenous (Intralipid 20%) 250 ml IV DAILY [facility] Last Admin: 01/15/18 09:05 Dose: Not Given Iron Sucrose 100 mg/ Sodium (Chloride) 105 mls @ 100 mls/hr IVPB DAILY [facility] Last Admin: 01/15/18 14:14 Dose: 100 mls/hr Meropenem 1 gm/ Sodium (Chloride) 100 mls @ 100 mls/hr IVPB Q12 [facility] PRN Reason: Protocol Last Admin: 01/15/18 09:03 Dose: 100 mls/hr Vancomycin HCl 750 mg/ Sodium (Chloride) 250 mls @ 166.667 mls/hr IVPB DAILY [facility] PRN Reason: Protocol Last Admin: 01/15/18 09:04 Dose: 166.667 mls/hr Potassium Phosphate 10.5 mmole / Magnesium Sulfate 8.1 meq/Amino Acids 1, 005.495 mls @ 35 mls/hr IV .Q24H ONE Stop: 01/16/18 15:29 Latanoprost (Xalatan Opht) 1 drop OU HS [facility] Last Admin: 01/14/18 22:01 Dose: 1 drop Metoprolol Tartrate (Lopressor) 5 mg IVP Q12 [facility] Last Admin: 01/15/18 10:22 Dose: 5 mg Ondansetron HCl (Zofran Inj) 4 mg IVP Q6 PRN PRN Reason: Nausea/Vomiting - Labs Labs: - Additional Findings Additional findings: - Constitutional Appears: No Acute Distress - Head Exam Head Exam: ATRAUMATIC - Eye Exam Eye Exam: EOMI, PERRL - ENT Exam ENT Exam: Normal Oropharynx - Neck Exam Neck exam: Positive for: Full Rom - Respiratory Exam Respiratory Exam: Clear to Auscultation Bilateral, NORMAL BREATHING PATTERN - Cardiovascular Exam Cardiovascular Exam: RRR, +S1, +S2 - GI/Abdominal Exam GI & Abdominal Exam: Normal Bowel Sounds, Soft Additional comments: NT, ND midabdminal area small opening with green discharge, currently has colostomy bag covering it no surrounding erythema - Extremities Exam Extremities exam: Positive for: normal inspection Neuro- AAO x 3 Laboratory Results - last 72 hr 01/14/18 01/14/18 01/15/18 05:40 05:40 06:10 WBC 5.5 6.6 RBC 2.64 L 2.90 L Hgb 8.5 L 9.3 L Hct 25.4 L 27.9 L MCV 96.1 D 96.3 MCH 32.2 H 32.1 H MCHC 33.5 33.4 RDW 14.3 14.2 Plt Count 274 290 MPV 6.8 L 7.2 Neut % (Auto) 56.1 50.0 Lymph % (Auto) 27.5 34.1 [place] % (Auto) 11.9 H 12.3 H Eos % (Auto) 3.7 2.9 Baso % (Auto) 0.8 0.7 Neut # (Auto) 3.1 3.3 Lymph # (Auto) 1.5 2.2 [place] # (Auto) 0.7 0.8 Eos # (Auto) 0.2 0.2 Baso # (Auto) 0.0 0.0 Sodium 141 Potassium 3.4 L Chloride 102 Carbon Dioxide 31 H Anion Gap 11 BUN 9 Creatinine 0.8 Est GFR ( Amer) > 60 Est GFR (Non-Af Amer) > 60 Random Glucose 120 H Calcium 8.6 Phosphorus 2.0 L Magnesium 1.6 Total Bilirubin 0.1 L AST 32 ALT 20 Alkaline Phosphatase 57 Total Protein 6.0 L Albumin 2.8 L Globulin 3.2 Albumin/Globulin Ratio 0.9 L Triglycerides 89 01/15/18 06:10 WBC RBC Hgb Hct MCV MCH MCHC RDW Plt Count MPV Neut % (Auto) Lymph % (Auto) [place] % (Auto) Eos % (Auto) Baso % (Auto) Neut # (Auto) Lymph # (Auto) [place] # (Auto) Eos # (Auto) Baso # (Auto) Sodium 143 Potassium 3.6 Chloride 100 Carbon Dioxide 30 Anion Gap 17 BUN 13 Creatinine 0.7 Est GFR ( Amer) > 60 Est GFR (Non-Af Amer) > 60 Random Glucose 106 H Calcium 8.6 Phosphorus 2.1 L Magnesium 1.4 L Total Bilirubin AST ALT Alkaline Phosphatase Total Protein Albumin Globulin Albumin/Globulin Ratio Triglycerides Microbiology 01/08/18 13:00 Blood-Venous Blood Culture - Final NO GROWTH AFTER 5 DAYS 01/08/18 12:30 Blood-Venous Blood Culture - Final NO GROWTH AFTER 5 DAYS 01/08/18 14:27 Urine,Clean Catch Urine Culture - Final Escherichia Coli Enterococcus Faecalis 01/08/18 13:27 Abdomen Gram Stain - Final 01/08/18 13:27 Abdomen Wound Culture - Final Escherichia Coli Enterococcus Faecalis Assessment and Plan (1) Enterocutaneous fistula Status: Acute (2) S/P laparoscopic cholecystectomy Status: Acute - Assessment and Plan (Free Text) Assessment: A/P- 87 year old female s/p recent lap tyesha with subsequent enterocutaneous fistula formation with serratia growth from the wound cx from last admission last month and completed 10 days of IV antibiotics and wound opening had closed, who now presents to ED with opening again at site of the fistula in midabdomen with yellow -green discharge. afebrile normal wbc count + UA urine cx - e.coli not esbl, e.fecalis Wound cx prelim- e.coli and e.fecalis blood cx- neg x 2 plan- has completed 7 days of IV meropenem continue with meropnem till less dishcarge from the fistula site continue with IV vanconycin for now, day #5 for e.fecalis from the wound and urine cx. keep vanco trough <15. check repeat UA. colostomy bag management as per surgical team.
[2018-01-15] MEDS ORDERED: POTASSIUM PHOSPHATE IV ONE (15:30)
[2018-01-15] MEDS ORDERED: [UNRECOGNIZED DRUG - OTHER] IV ONE (15:30)
[2018-01-15] MEDS ORDERED: MAGNESIUM SULFATE IV ONE (15:30)
[2018-01-15 21:07] LABS: SQUAMOUS EPITHIAL < 1 /hpf (0-5); URINE BILIRUBIN NEGATIVE (NEGATIVE); URINE BLOOD NEGATIVE (NEGATIVE); URINE CLARITY CLEAR (Clear); URINE COLOR YELLOW (YELLOW); URINE GLUCOSE (UA) 50 mg/dL (Normal); URINE LEUKOCYTE ESTERASE NEG Leu/uL (Negative); URINE PROTEIN NEGATIVE (NEGATIVE); URINE UROBILINOGEN 0.2-1.0 mg/dL (0.2-1.0)
[2018-01-15] MEDS: Latanoprost 0.005% Opht SOUTION OU SCH (21:45)
--- NOTE | 2018-01-16 07:51 | CP.PCM.PN ---
<Darleen Howell - Last Filed: 01/16/18 07:48> Subjective - Date & Time of Evaluation Date of Evaluation: 01/16/18 Time of Evaluation: 07:48 - Subjective Subjective: General Surgery Progress note: Dr. Lawler Patient was seen and examined at the bedside. Denies any abdominal pain. Reports that she feels tired. Denies of any other complains at this time. Objective - Vital Signs/Intake and Output Vital Signs (last 24 hours): Temp Pulse Resp BP Pulse Ox 97.5 F L 98 H 18 131/67 97 01/16/18 07:38 01/16/18 07:38 01/16/18 07:38 01/16/18 07:38 01/16/18 07:38 Intake and Output: 01/16/18 01/16/18 06:59 18:59 Intake Total 520 Output Total 10 Balance 510 - Medications Medications: Current Medications Fat Emulsion Intravenous (Intralipid 20%) 250 ml IV DAILY [facility] Last Admin: 01/15/18 16:44 Dose: 250 ml Iron Sucrose 100 mg/ Sodium (Chloride) 105 mls @ 100 mls/hr IVPB DAILY [facility] Last Admin: 01/15/18 14:14 Dose: 100 mls/hr Meropenem 1 gm/ Sodium (Chloride) 100 mls @ 100 mls/hr IVPB Q12 [facility] PRN Reason: Protocol Last Admin: 01/15/18 21:00 Dose: 100 mls/hr Vancomycin HCl 750 mg/ Sodium (Chloride) 250 mls @ 166.667 mls/hr IVPB DAILY [facility] PRN Reason: Protocol Last Admin: 01/15/18 09:04 Dose: 166.667 mls/hr Potassium Phosphate 10.5 mmole / Magnesium Sulfate 8.1 meq/Amino Acids 1, 005.495 mls @ 35 mls/hr IV .Q24H ONE Stop: 01/16/18 15:29 Last Admin: 01/15/18 16:43 Dose: 35 mls/hr Latanoprost (Xalatan Opht) 1 drop OU HS [facility] Last Admin: 01/15/18 21:45 Dose: 1 drop Metoprolol Tartrate (Lopressor) 5 mg IVP Q12 [facility] Last Admin: 01/15/18 21:00 Dose: Not Given Ondansetron HCl (Zofran Inj) 4 mg IVP Q6 PRN PRN Reason: Nausea/Vomiting - Labs Labs: 01/15/18 06:10 01/15/18 06:10 PT 11.7 Seconds (9.8-13.1) 01/08/18 12:40 INR 1.1 (0.9-1.2) 01/08/18 12:40 APTT 26.4 Seconds (25.6-37.1) 01/08/18 12:40 - Constitutional Appears: Well, Non-toxic, No Acute Distress - Head Exam Head Exam: ATRAUMATIC - Eye Exam Eye Exam: Normal appearance - Neck Exam Neck Exam: Full ROM - Respiratory Exam Respiratory Exam: NORMAL BREATHING PATTERN - GI/Abdominal Exam GI & Abdominal Exam: Soft. absent: Hernia, Mass Additional comments: NT, ND, no rebound, no guarding, EC fistula to the infra-umbilical area with minimal output - Neurological Exam Neurological Exam: Alert, Awake, Oriented x3 - Psychiatric Exam Psychiatric exam: Normal Affect, Normal Mood - Skin Skin Exam: Dry, Intact, Normal Color, Warm Assessment and Plan - Assessment and Plan (Free Text) Assessment: 87 y.o. female with EC fistula Plan: - Keep NPO - IV fluids - TPN - Antibiotics as per ID - DVT ppx - Repeat labs in am - Monitor fistula output - 20-30 cc overnight today - Out of bed - Will follow <Michael Lawler - Last Filed: 01/16/18 10:49> Subjective - Date & Time of Evaluation Time of Evaluation: 10:00 - Subjective Subjective: Patient was seen and examined at the bedside. Agree with resident's note above. Objective - Vital Signs/Intake and Output Vital Signs (last 24 hours): Temp Pulse Resp BP Pulse Ox 97.5 F L 94 H 18 143/75 97 01/16/18 07:38 01/16/18 10:24 01/16/18 07:38 01/16/18 10:24 01/16/18 07:38 Intake and Output: 01/16/18 01/16/18 06:59 18:59 Intake Total 520 Output Total 10 Balance 510 - Medications Medications: Current Medications Fat Emulsion Intravenous (Intralipid 20%) 250 ml IV DAILY [facility] Last Admin: 01/15/18 16:44 Dose: 250 ml Iron Sucrose 100 mg/ Sodium (Chloride) 105 mls @ 100 mls/hr IVPB DAILY [facility] Last Admin: 01/15/18 14:14 Dose: 100 mls/hr Meropenem 1 gm/ Sodium (Chloride) 100 mls @ 100 mls/hr IVPB Q12 [facility] PRN Reason: Protocol Last Admin: 01/16/18 10:24 Dose: 100 mls/hr Vancomycin HCl 750 mg/ Sodium (Chloride) 250 mls @ 166.667 mls/hr IVPB DAILY [facility] PRN Reason: Protocol Last Admin: 01/15/18 09:04 Dose: 166.667 mls/hr Potassium Phosphate 10.5 mmole / Magnesium Sulfate 8.1 meq/Amino Acids 1, 005.495 mls @ 35 mls/hr IV .Q24H ONE Stop: 01/16/18 15:29 Last Admin: 01/15/18 16:43 Dose: 35 mls/hr Latanoprost (Xalatan Opht) 1 drop OU HS [facility] Last Admin: 01/15/18 21:45 Dose: 1 drop Metoprolol Tartrate (Lopressor) 5 mg IVP Q12 [facility] Last Admin: 01/16/18 10:24 Dose: 5 mg Ondansetron HCl (Zofran Inj) 4 mg IVP Q6 PRN PRN Reason: Nausea/Vomiting - Labs Labs: 01/15/18 06:10 01/16/18 06:20 PT 11.7 Seconds (9.8-13.1) 01/08/18 12:40 INR 1.1 (0.9-1.2) 01/08/18 12:40 APTT 26.4 Seconds (25.6-37.1) 01/08/18 12:40
[2018-01-16 08:19] LABS: BLOOD UREA NITROGEN 15 mg/dl (7-17); CALCIUM 8.3 mg/dL (8.4-10.2); GFR AFRICAN-AMERICAN > 60; GFR NON-AFRICAN AMERICAN > 60
[2018-01-16] MEDS: Metoprolol 1 mg/ml Inj IVP SCH ×3 (08:41→21:10)
[2018-01-16] MEDS: Meropenem 1 GM in Sodium Chloride 0.9% 100 ML IVPB SCH (10:24)
--- NOTE | 2018-01-16 12:11 | CP.PCM.PN ---
Subjective - Date & Time of Evaluation Date of Evaluation: 01/16/18 Time of Evaluation: 10:45 - Subjective Subjective: No fever 70 ml drainage yesterday denies abd pain no CP no SOB Objective - Vital Signs/Intake and Output Vital Signs (last 24 hours): Temp Pulse Resp BP Pulse Ox 97.5 F L 94 H 18 143/75 97 01/16/18 07:38 01/16/18 10:24 01/16/18 07:38 01/16/18 10:24 01/16/18 07:38 Intake and Output: 01/16/18 01/16/18 06:59 18:59 Intake Total 520 Output Total 10 Balance 510 - Medications Medications: Current Medications Fat Emulsion Intravenous (Intralipid 20%) 250 ml IV DAILY [facility] Last Admin: 01/15/18 16:44 Dose: 250 ml Iron Sucrose 100 mg/ Sodium (Chloride) 105 mls @ 100 mls/hr IVPB DAILY [facility] Last Admin: 01/16/18 11:38 Dose: 100 mls/hr Meropenem 1 gm/ Sodium (Chloride) 100 mls @ 100 mls/hr IVPB Q12 [facility] PRN Reason: Protocol Last Admin: 01/16/18 10:24 Dose: 100 mls/hr Vancomycin HCl 750 mg/ Sodium (Chloride) 250 mls @ 166.667 mls/hr IVPB DAILY [facility] PRN Reason: Protocol Last Admin: 01/15/18 09:04 Dose: 166.667 mls/hr Potassium Phosphate 10.5 mmole / Magnesium Sulfate 8.1 meq/Amino Acids 1, 005.495 mls @ 35 mls/hr IV .Q24H ONE Stop: 01/16/18 15:29 Last Admin: 01/15/18 16:43 Dose: 35 mls/hr Latanoprost (Xalatan Opht) 1 drop OU HS [facility] Last Admin: 01/15/18 21:45 Dose: 1 drop Metoprolol Tartrate (Lopressor) 5 mg IVP Q12 [facility] Last Admin: 01/16/18 10:24 Dose: 5 mg Ondansetron HCl (Zofran Inj) 4 mg IVP Q6 PRN PRN Reason: Nausea/Vomiting - Labs Labs: 01/15/18 06:10 01/16/18 06:20 PT 11.7 Seconds (9.8-13.1) 01/08/18 12:40 INR 1.1 (0.9-1.2) 01/08/18 12:40 APTT 26.4 Seconds (25.6-37.1) 01/08/18 12:40 - Constitutional Appears: No Acute Distress - Head Exam Head Exam: NORMAL INSPECTION, NORMOCEPHALIC - Eye Exam Eye Exam: EOMI, Normal appearance Pupil Exam: NORMAL ACCOMODATION - ENT Exam ENT Exam: Mucous Membranes Dry, Normal External Ear Exam - Neck Exam Neck Exam: Full ROM. absent: Meningismus - Respiratory Exam Respiratory Exam: NORMAL BREATHING PATTERN. absent: Respiratory Distress - Cardiovascular Exam Cardiovascular Exam: REGULAR RHYTHM, +S1, +S2 - GI/Abdominal Exam GI & Abdominal Exam: Soft, Normal Bowel Sounds. absent: Tenderness Additional comments: Abd wall fistula with greenish brown drainage, Colostomy bag placed to collect drainage - Extremities Exam Extremities Exam: Full ROM, Normal Capillary Refill. absent: Calf Tenderness - Back Exam Back Exam: Full ROM. absent: CVA tenderness (L), CVA tenderness (R) - Neurological Exam Neurological Exam: Alert, Awake, CN II-XII Intact, Oriented x3 Neuro motor strength exam: Left Upper Extremity: 5, Right Upper Extremity: 5, Left Lower Extremity: 5, Right Lower Extremity: 5 - Psychiatric Exam Psychiatric exam: Normal Affect, Normal Mood - Skin Skin Exam: Dry, Normal Color, Warm Assessment and Plan - Assessment and Plan (Free Text) Assessment: 87 yo female with a past medical history of arthritis and hypertension was recently admitted to [facility] on 11/25/2017 for Cholecystitis, underwent Lap tyesha and developed iatrogenic enterotomy. At home her surgical wound started draining some mucoid greenish material and she was advised to come in for evaluation by her surgeon. 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 Patient was admitted , started on IV Zosyn and Flagyl , kept NPO , and managed conservatively with NPO, TPN, and IV antibiotics. Wound cultures were reported as positive for Serratia Liquefaciens and antibiotics changed to Meropenem IV. Patient's drainage resolved and diet was upgraded to regular and she tolerated well and was sent home. 01/08/18 : returns with drainage from fistula again. CT abdomen showed enterocutaneous fistula with a tract better delineated on the current examination, well delineated by oral contrast material including umbilicus or periumbilical abdominal wall deformity. Pt still with drainage approx 70 ml the last 24 hrs. Still NPO on TPN. 1. Enterocutaneous Fistula Surgery consulted- Will continue conservative treatment until beginning of next week . if no improvement patient may need surgical correction Keep patient NPO Continue TPN and lipid infusion daily PICC line in place working well ID consulted and is following pt Wound cx and urine positive for E. Coli and enterococcus faecalis cont Meropenem IV and IV Vanco ( Vanco trough sl elevated - held today) Continue wound care around fistula wound care consulted 2. Anemia, chronic stable pt refused transfusion pt asymptomatic on IV venofer- improved to 9.3 on Venofer 3.UTI Denies any dysuria or frequency Continue meropenem and Vanco Urine c/s positive FOR E coli and Enterococcus 4. HTN BP stable monitor vitals Held metoprolol due to total NPO status started Metoprolol 5 mg IV BID 5. Hyperlipidemia Hold statin for now due to total NPO status 6. Acute Renal Insufficiency probably secondary to volume depletion Continue IV hydration 7. DVT prophylaxis Lovenox 30 mg sc
[2018-01-16] MEDS: Potassium CL 10 MEQ/50 ML 50 ML IVPB SCH ×2 (15:45→17:47)
[2018-01-16] MEDS: Enoxaparin 30 mg Syringe SC SCH (15:45)
[2018-01-16] MEDS ORDERED: [UNRECOGNIZED DRUG - NUTRITION] IV ONE (16:00)
[2018-01-16] MEDS ORDERED: Magnesium Sulfate 1 gm in D5W 1 GM/100 ML BAG IVPB ONE (16:49)
[2018-01-16] MEDS: Latanoprost 0.005% Opht SOUTION OU SCH (22:11)
[2018-01-17 07:22] LABS: ALB/GLOB RATIO 0.8 (1.0-2.1); ALBUMIN 2.6 g/dL (3.5-5.0); ALT/SGPT 33 U/L (9-52); AST/SGOT 34 U/L (14-36); BLOOD UREA NITROGEN 18 mg/dl (7-17); CALCIUM 8.4 mg/dL (8.4-10.2); GFR AFRICAN-AMERICAN > 60; GFR NON-AFRICAN AMERICAN > 60
[2018-01-17 07:28] LABS: HEMOGLOBIN 8.3 g/dL (12.0-16.0); MEAN CELL VOLUME 95.6 fl (81.0-99.0); MEAN CORPUSCULAR HEMOGLOBIN 32.5 pg (27.0-31.0); RBC 2.57 Mil/uL (3.80-5.20); RED CELL DISTRIBUTION WIDTH 14.5 % (11.5-14.5); WHITE BLOOD COUNT 5.3 K/uL (4.8-10.8)
--- NOTE | 2018-01-17 07:42 | CP.PCM.PN ---
<Darleen Howell - Last Filed: 01/17/18 07:39> Subjective - Date & Time of Evaluation Date of Evaluation: 01/17/18 Time of Evaluation: 07:39 - Subjective Subjective: General Surgery Progress note: Dr. Lawler Patient was seen and examined at the bedside. Denies any abdominal pain. Reports that she feels burning and itchy at the site of the bag. Denies of any other complains at this time. Objective - Vital Signs/Intake and Output Vital Signs (last 24 hours): Temp Pulse Resp BP Pulse Ox 97.8 F 85 19 148/82 98 01/17/18 07:34 01/17/18 07:34 01/17/18 07:34 01/17/18 07:34 01/17/18 07:34 Intake and Output: 01/17/18 01/17/18 06:59 18:59 Intake Total 520 Output Total 65 Balance 455 - Medications Medications: Current Medications Enoxaparin Sodium (Lovenox) 30 mg SC DAILY [facility] PRN Reason: Protocol Last Admin: 01/16/18 15:45 Dose: 30 mg Fat Emulsion Intravenous (Intralipid 20%) 250 ml IV DAILY [facility] Last Admin: 01/16/18 13:35 Dose: 250 ml Iron Sucrose 100 mg/ Sodium (Chloride) 105 mls @ 100 mls/hr IVPB DAILY [facility] Last Admin: 01/16/18 11:38 Dose: 100 mls/hr Vancomycin HCl 750 mg/ Sodium (Chloride) 250 mls @ 166.667 mls/hr IVPB DAILY [facility] PRN Reason: Protocol Last Admin: 01/16/18 17:39 Dose: Not Given Multivitamins/Vitamin C 10 ml/Chromium/Copper/Manganese/Zinc 3 ml/ Amino Acids 1,013 mls @ 35 mls/hr IV .Q24H ONE Stop: 01/17/18 15:59 Last Admin: 01/16/18 17:46 Dose: 35 mls/hr Latanoprost (Xalatan Opht) 1 drop OU HS [facility] Last Admin: 01/16/18 22:11 Dose: 1 drop Metoprolol Tartrate (Lopressor) 5 mg IVP Q12 [facility] Last Admin: 01/16/18 21:10 Dose: 5 mg Ondansetron HCl (Zofran Inj) 4 mg IVP Q6 PRN PRN Reason: Nausea/Vomiting - Labs Labs: 01/15/18 06:10 01/17/18 06:20 PT 11.7 Seconds (9.8-13.1) 01/08/18 12:40 INR 1.1 (0.9-1.2) 01/08/18 12:40 APTT 26.4 Seconds (25.6-37.1) 01/08/18 12:40 - Constitutional Appears: Well, Non-toxic, No Acute Distress - Head Exam Head Exam: ATRAUMATIC - Eye Exam Eye Exam: Normal appearance - Neck Exam Neck Exam: Normal Inspection - Respiratory Exam Respiratory Exam: NORMAL BREATHING PATTERN - GI/Abdominal Exam GI & Abdominal Exam: Soft. 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 Agree with resident's note above. Objective - Vital Signs/Intake and Output Vital Signs (last 24 hours): Temp Pulse Resp BP Pulse Ox 97.8 F 100 H 19 123/71 98 01/17/18 07:34 01/17/18 08:55 01/17/18 07:34 01/17/18 08:55 01/17/18 07:34 Intake and Output: 01/17/18 01/17/18 06:59 18:59 Intake Total 520 Output Total 65 Balance 455 - Medications Medications: Current Medications Enoxaparin Sodium (Lovenox) 30 mg SC DAILY [facility] PRN Reason: Protocol Last Admin: 01/17/18 08:56 Dose: 30 mg Fat Emulsion Intravenous (Intralipid 20%) 500 ml IV MWF@1600 ONE Stop: 01/17/18 16:01 Iron Sucrose 100 mg/ Sodium (Chloride) 105 mls @ 100 mls/hr IVPB DAILY [facility] Last Admin: 01/17/18 08:57 Dose: 100 mls/hr Vancomycin HCl 750 mg/ Sodium (Chloride) 250 mls @ 166.667 mls/hr IVPB DAILY [facility] PRN Reason: Protocol Last Admin: 01/16/18 17:39 Dose: Not Given Multivitamins/Vitamin C 10 ml/Chromium/Copper/Manganese/Zinc 3 ml/ Amino Acids 1,013 mls @ 35 mls/hr IV .Q24H ONE Stop: 01/17/18 15:59 Last Admin: 01/16/18 17:46 Dose: 35 mls/hr Latanoprost (Xalatan Opht) 1 drop OU HS [facility] Last Admin: 01/16/18 22:11 Dose: 1 drop Metoprolol Tartrate (Lopressor) 5 mg IVP Q12 [facility] Last Admin: 01/17/18 08:55 Dose: 5 mg Ondansetron HCl (Zofran Inj) 4 mg IVP Q6 PRN PRN Reason: Nausea/Vomiting - Labs Labs: 01/17/18 06:20 01/17/18 06:20 PT 11.7 Seconds (9.8-13.1) 01/08/18 12:40 INR 1.1 (0.9-1.2) 01/08/18 12:40 APTT 26.4 Seconds (25.6-37.1) 01/08/18 12:40
[2018-01-17] MEDS ORDERED: Potassium Phosphate 30 MMOLE in Sodium Chloride 0.9% 250 ML IV ONE (07:51)
[2018-01-17] MEDS: Metoprolol 1 mg/ml Inj IVP SCH ×2 (08:55→21:59)
[2018-01-17] MEDS: Enoxaparin 30 mg Syringe SC SCH (08:56)
--- NOTE | 2018-01-17 09:25 | CP.PCM.PN ---
Subjective - Date & Time of Evaluation Date of Evaluation: 01/17/18 Time of Evaluation: 09:15 - Subjective Subjective: No fever 65ml total drainage yesterday denies abd pain TPN infusion going on denies CP no SOB no BM, + flatus Objective - Vital Signs/Intake and Output Vital Signs (last 24 hours): Temp Pulse Resp BP Pulse Ox 97.8 F 100 H 19 123/71 98 01/17/18 07:34 01/17/18 08:55 01/17/18 07:34 01/17/18 08:55 01/17/18 07:34 Intake and Output: 01/17/18 01/17/18 06:59 18:59 Intake Total 520 Output Total 65 Balance 455 - Medications Medications: Current Medications Enoxaparin Sodium (Lovenox) 30 mg SC DAILY [facility] PRN Reason: Protocol Last Admin: 01/17/18 08:56 Dose: 30 mg Fat Emulsion Intravenous (Intralipid 20%) 250 ml IV DAILY [facility] Last Admin: 01/16/18 13:35 Dose: 250 ml Iron Sucrose 100 mg/ Sodium (Chloride) 105 mls @ 100 mls/hr IVPB DAILY [facility] Last Admin: 01/17/18 08:57 Dose: 100 mls/hr Vancomycin HCl 750 mg/ Sodium (Chloride) 250 mls @ 166.667 mls/hr IVPB DAILY [facility] PRN Reason: Protocol Last Admin: 01/16/18 17:39 Dose: Not Given Multivitamins/Vitamin C 10 ml/Chromium/Copper/Manganese/Zinc 3 ml/ Amino Acids 1,013 mls @ 35 mls/hr IV .Q24H ONE Stop: 01/17/18 15:59 Last Admin: 01/16/18 17:46 Dose: 35 mls/hr Potassium Phosphate 30 mmole/ (Sodium Chloride) 260 mls @ 65 mls/hr IV ONCE ONE Stop: 01/17/18 11:50 Latanoprost (Xalatan Opht) 1 drop OU HS [facility] Last Admin: 01/16/18 22:11 Dose: 1 drop Metoprolol Tartrate (Lopressor) 5 mg IVP Q12 [facility] Last Admin: 01/17/18 08:55 Dose: 5 mg Ondansetron HCl (Zofran Inj) 4 mg IVP Q6 PRN PRN Reason: Nausea/Vomiting - Labs Labs: 01/17/18 06:20 01/17/18 06:20 PT 11.7 Seconds (9.8-13.1) 01/08/18 12:40 INR 1.1 (0.9-1.2) 01/08/18 12:40 APTT 26.4 Seconds (25.6-37.1) 01/08/18 12:40 - Constitutional Appears: No Acute Distress - Head Exam Head Exam: NORMAL INSPECTION, NORMOCEPHALIC - Eye Exam Eye Exam: EOMI, Normal appearance Pupil Exam: NORMAL ACCOMODATION - ENT Exam ENT Exam: Mucous Membranes Dry, Normal External Ear Exam - Neck Exam Neck Exam: Full ROM. absent: Meningismus - Respiratory Exam Respiratory Exam: NORMAL BREATHING PATTERN. absent: Respiratory Distress - Cardiovascular Exam Cardiovascular Exam: REGULAR RHYTHM, +S1, +S2 - GI/Abdominal Exam GI & Abdominal Exam: Soft, Normal Bowel Sounds. absent: Tenderness Additional comments: Abd wall fistula with greenish brown drainage, Colostomy bag placed to collect drainage - Extremities Exam Extremities Exam: Full ROM, Normal Capillary Refill. absent: Calf Tenderness - Back Exam Back Exam: Full ROM. absent: CVA tenderness (L), CVA tenderness (R) - Neurological Exam Neurological Exam: Alert, Awake, CN II-XII Intact, Oriented x3 Neuro motor strength exam: Left Upper Extremity: 5, Right Upper Extremity: 5, Left Lower Extremity: 5, Right Lower Extremity: 5 - Psychiatric Exam Psychiatric exam: Normal Affect, Normal Mood - Skin Skin Exam: Dry, Normal Color, Warm Assessment and Plan - Assessment and Plan (Free Text) Assessment: 87 yo female with a past medical history of arthritis and hypertension was recently admitted to [facility] on 11/25/2017 for Cholecystitis, underwent Lap tyesha and developed iatrogenic enterotomy. At home her surgical wound started draining some mucoid greenish material and she was advised to come in for evaluation by her surgeon. 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 Patient was admitted , started on IV Zosyn and Flagyl , kept NPO , and managed conservatively with NPO, TPN, and IV antibiotics. Wound cultures were reported as positive for Serratia Liquefaciens and antibiotics changed to Meropenem IV. Patient's drainage resolved and diet was upgraded to regular and she tolerated well and was sent home. 01/08/18 : returns with drainage from fistula again. CT abdomen showed enterocutaneous fistula with a tract better delineated on the current examination, well delineated by oral contrast material including umbilicus or periumbilical abdominal wall deformity. Pt still with drainage approx 65 ml the last 24 hrs. Still NPO on TPN. Wound c/s : E coli and Enterococcus 1. Enterocutaneous Fistula Surgery following pt - Will continue conservative treatment until beginning of next week . if no improvement patient may need surgical repair of fistula Keep patient NPO Continue TPN and lipid infusion daily PICC line in place working well ID consulted and is following pt Wound cx and urine positive for E. Coli and enterococcus faecalis cont Meropenem IV and IV Vanco ( Vanco trough sl elevated yesterday) Continue wound care around fistula wound care consulted 2. Anemia, chronic stable pt refused transfusion pt asymptomatic on IV venofer 3.UTI Denies any dysuria or frequency Continue meropenem and Vanco Urine c/s : E coli and Enterococcus 4. HTN BP stable monitor vitals cont Metoprolol 5 mg IV BID while NPO 5. Hyperlipidemia Hold statin for now due to total NPO status 6. Acute Renal Insufficiency probably secondary to volume depletion Continue IV hydration 7. DVT prophylaxis Lovenox
[2018-01-17] MEDS ORDERED: Multivitamin (MVI) 10 ML, Chromium/Copper/Manganese/Zinc 3 ML in Amino/Dex E 4.25/25 10... IV ONE (17:00)
[2018-01-17] MEDS ORDERED: Meropenem 1 GM in Sodium Chloride 0.9% 100 ML IVPB SCH (21:00)
[2018-01-17] MEDS: Meropenem 1 GM in Sodium Chloride 0.9% 100 ML IVPB SCH (22:01)
[2018-01-17] MEDS: Latanoprost 0.005% Opht SOUTION OU SCH (22:02)
--- NOTE | 2018-01-18 05:26 | CP.PCM.PN ---
<Geovany Sims - Last Filed: 01/18/18 05:29> Subjective - Date & Time of Evaluation Date of Evaluation: 01/18/18 Time of Evaluation: 05:24 - Subjective Subjective: SURGERY PROGRESS NOTE FOR DR. NASH 87F seen and examined at bedside. Patient doing well, no acute events overnight. Fistula continues to have output. Objective - Vital Signs/Intake and Output Vital Signs (last 24 hours): Temp Pulse Resp BP Pulse Ox 97.4 F L 89 19 158/73 H 97 01/18/18 00:22 01/18/18 00:22 01/18/18 00:22 01/18/18 00:22 01/18/18 00:22 Intake and Output: 01/17/18 01/18/18 18:59 06:59 Output Total 20 Balance -20 - Medications Medications: Current Medications Enoxaparin Sodium (Lovenox) 30 mg SC DAILY [facility] PRN Reason: Protocol Last Admin: 01/17/18 08:56 Dose: 30 mg Iron Sucrose 100 mg/ Sodium (Chloride) 105 mls @ 100 mls/hr IVPB DAILY [facility] Last Admin: 01/17/18 08:57 Dose: 100 mls/hr Vancomycin HCl 750 mg/ Sodium (Chloride) 250 mls @ 166.667 mls/hr IVPB DAILY [facility] PRN Reason: Protocol Last Admin: 01/17/18 15:50 Dose: 166.667 mls/hr Multivitamins/Vitamin C 10 ml/Chromium/Copper/Manganese/Zinc 3 ml/ Amino Acids/ Electrolytes/Dextrose 1,013 mls @ 35 mls/hr IV .Q24H ONE Stop: 01/18/18 16:59 Last Admin: 01/17/18 17:38 Dose: 35 mls/hr Meropenem 1 gm/ Sodium (Chloride) 100 mls @ 100 mls/hr IVPB Q12 [facility] PRN Reason: Protocol Last Admin: 01/17/18 22:01 Dose: 100 mls/hr Latanoprost (Xalatan Opht) 1 drop OU HS [facility] Last Admin: 01/17/18 22:02 Dose: 1 drop Metoprolol Tartrate (Lopressor) 5 mg IVP Q12 [facility] Last Admin: 01/17/18 21:59 Dose: 5 mg Ondansetron HCl (Zofran Inj) 4 mg IVP Q6 PRN PRN Reason: Nausea/Vomiting - Labs Labs: 01/17/18 06:20 01/17/18 06:20 PT 11.7 Seconds (9.8-13.1) 01/08/18 12:40 INR 1.1 (0.9-1.2) 01/08/18 12:40 APTT 26.4 Seconds (25.6-37.1) 01/08/18 12:40 - Constitutional Appears: Non-toxic, No Acute Distress - Respiratory Exam Respiratory Exam: Clear to Ausculation Bilateral, NORMAL BREATHING PATTERN - Cardiovascular Exam Cardiovascular Exam: REGULAR RHYTHM, +S1, +S2 - GI/Abdominal Exam GI & Abdominal Exam: Soft. absent: Distended, Firm, Guarding, Rigid, Tenderness , Rebound Additional comments: fistula with succus output - Neurological Exam Neurological Exam: Alert, Awake - Psychiatric Exam Psychiatric exam: Normal Affect, Normal Mood - Skin Skin Exam: Dry, Intact, Normal Color, Warm Assessment and Plan - Assessment and Plan (Free Text) Assessment: 87F with enterocutaneous fistula Plan: Continue to monitor output NPO, TPN to decrease output Continue antibiotics Further recs discuss with Dr Bucky Sims, PGY2 <Michael Lawler - Last Filed: 01/18/18 16:28> Subjective - Date & Time of Evaluation Time of Evaluation: 15:45 - Subjective Subjective: Patient was seen and examined at the bedside. Agree with resident's note above. Objective - Vital Signs/Intake and Output Vital Signs (last 24 hours): Temp Pulse Resp BP Pulse Ox 97.6 F 83 20 138/72 95 01/18/18 15:51 01/18/18 15:51 01/18/18 15:51 01/18/18 15:51 01/18/18 15:51 Intake and Output: 01/18/18 01/18/18 06:59 18:59 Intake Total 520 Output Total 35 Balance 485 - Medications Medications: Current Medications Enoxaparin Sodium (Lovenox) 30 mg SC DAILY [facility] PRN Reason: Protocol Last Admin: 01/18/18 09:05 Dose: 30 mg Fat Emulsion Intravenous (Intralipid 20%) 500 ml IV MWF [facility] Vancomycin HCl 750 mg/ Sodium (Chloride) 250 mls @ 166.667 mls/hr IVPB DAILY [facility] PRN Reason: Protocol Last Admin: 01/18/18 11:46 Dose: 166.667 mls/hr Meropenem 1 gm/ Sodium (Chloride) 100 mls @ 100 mls/hr IVPB Q12 [facility] PRN Reason: Protocol Last Admin: 01/18/18 09:05 Dose: 100 mls/hr Multivitamins/Vitamin C 10 ml/Chromium/Copper/Manganese/Zinc 3 ml/ Amino Acids/ Electrolytes/Dextrose 1,013 mls @ 35 mls/hr IV .Q24H ONE Stop: 01/19/18 14:59 Last Admin: 01/18/18 15:51 Dose: 35 mls/hr Latanoprost (Xalatan Opht) 1 drop OU HS [facility] Last Admin: 01/17/18 22:02 Dose: 1 drop Metoprolol Tartrate (Lopressor) 5 mg IVP Q12 [facility] Last Admin: 01/18/18 09:04 Dose: 5 mg Ondansetron HCl (Zofran Inj) 4 mg IVP Q6 PRN PRN Reason: Nausea/Vomiting - Labs Labs: 01/18/18 05:30 01/18/18 05:30 PT 11.7 Seconds (9.8-13.1) 01/08/18 12:40 INR 1.1 (0.9-1.2) 01/08/18 12:40 APTT 26.4 Seconds (25.6-37.1) 01/08/18 12:40
[2018-01-18 06:38] LABS: HEMOGLOBIN 9.6 g/dL (12.0-16.0); MEAN CELL VOLUME 96.3 fl (81.0-99.0); MEAN CORPUSCULAR HEMOGLOBIN 36.2 pg (27.0-31.0); MEAN CORPUSCULAR HGB CONC 37.6 g/dL (33.0-37.0); RBC 2.65 Mil/uL (3.80-5.20); RED CELL DISTRIBUTION WIDTH 14.3 % (11.5-14.5); WHITE BLOOD COUNT 5.7 K/uL (4.8-10.8)
[2018-01-18 06:53] LABS: LDL CHOLESTEROL 47 mg/dL (0-129)
[2018-01-18 07:09] LABS: BLOOD UREA NITROGEN 19 mg/dl (7-17); CALCIUM 8.5 mg/dL (8.4-10.2); GFR AFRICAN-AMERICAN > 60; GFR NON-AFRICAN AMERICAN > 60; HDL CHOLESTEROL 19 MG/DL (30-70)
--- NOTE | 2018-01-18 07:29 | CP.PCM.PN ---
Subjective - Date & Time of Evaluation Date of Evaluation: 01/18/18 Time of Evaluation: 08:30 - Subjective Subjective: Patient seen and examined bedside.Feeling better. Hemodynamically stable, afebrile.Unable to sleep well last night. 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 As per staff [id number] amount not accurate since colostomy bag was not properly secured . Denies any pain NPO and on TPN via PICC Objective - Vital Signs/Intake and Output Vital Signs (last 24 hours): Temp Pulse Resp BP Pulse Ox 97.4 F L 89 19 158/73 H 97 01/18/18 00:22 01/18/18 00:22 01/18/18 00:22 01/18/18 00:22 01/18/18 00:22 Intake and Output: 01/18/18 01/18/18 06:59 18:59 Intake Total 520 Output Total 35 Balance 485 - Medications Medications: Current Medications Enoxaparin Sodium (Lovenox) 30 mg SC DAILY [facility] PRN Reason: Protocol Last Admin: 01/17/18 08:56 Dose: 30 mg Iron Sucrose 100 mg/ Sodium (Chloride) 105 mls @ 100 mls/hr IVPB DAILY [facility] Last Admin: 01/17/18 08:57 Dose: 100 mls/hr Vancomycin HCl 750 mg/ Sodium (Chloride) 250 mls @ 166.667 mls/hr IVPB DAILY [facility] PRN Reason: Protocol Last Admin: 01/17/18 15:50 Dose: 166.667 mls/hr Multivitamins/Vitamin C 10 ml/Chromium/Copper/Manganese/Zinc 3 ml/ Amino Acids/ Electrolytes/Dextrose 1,013 mls @ 35 mls/hr IV .Q24H ONE Stop: 01/18/18 16:59 Last Admin: 01/17/18 17:38 Dose: 35 mls/hr Meropenem 1 gm/ Sodium (Chloride) 100 mls @ 100 mls/hr IVPB Q12 [facility] PRN Reason: Protocol Last Admin: 01/17/18 22:01 Dose: 100 mls/hr Latanoprost (Xalatan Opht) 1 drop OU HS [facility] Last Admin: 01/17/18 22:02 Dose: 1 drop Metoprolol Tartrate (Lopressor) 5 mg IVP Q12 [facility] Last Admin: 01/17/18 21:59 Dose: 5 mg Ondansetron HCl (Zofran Inj) 4 mg IVP Q6 PRN PRN Reason: Nausea/Vomiting - Labs Labs: 01/17/18 06:20 01/18/18 05:30 PT 11.7 Seconds (9.8-13.1) 01/08/18 12:40 INR 1.1 (0.9-1.2) 01/08/18 12:40 APTT 26.4 Seconds (25.6-37.1) 01/08/18 12:40 - Constitutional Appears: Non-toxic, No Acute Distress - Head Exam Head Exam: ATRAUMATIC, NORMAL INSPECTION, NORMOCEPHALIC - Eye Exam Eye Exam: EOMI, Normal appearance, PERRL Pupil Exam: NORMAL ACCOMODATION - ENT Exam ENT Exam: Mucous Membranes Moist, Normal Exam - Neck Exam Neck Exam: Full ROM, Normal Inspection - Respiratory Exam Respiratory Exam: Clear to Ausculation Bilateral, NORMAL BREATHING PATTERN. absent: Rales, Rhonchi, Wheezes, Respiratory Distress - Cardiovascular Exam Cardiovascular Exam: REGULAR RHYTHM, RRR, +S1, +S2. absent: JVD - GI/Abdominal Exam GI & Abdominal Exam: Soft, Normal Bowel Sounds. absent: Distended, Guarding, Rebound Additional comments: mid abdomen enterocutaneus fistula with colostomy bag in place with bilious output - Rectal Exam Rectal Exam: Deferred - Extremities Exam Extremities Exam: Full ROM, Normal Capillary Refill, Normal Inspection. absent : Calf Tenderness, Pedal Edema - Back Exam Back Exam: NORMAL INSPECTION - Neurological Exam Neurological Exam: Alert, Awake, CN II-XII Intact, Oriented x3 - Psychiatric Exam Psychiatric exam: Anxious, Flat Affect - Skin Skin Exam: Dry, Pallor, Warm Assessment and Plan - Assessment and Plan (Free Text) Assessment: 87 yo female with a past medical history of arthritis and hypertension was recently admitted to [facility] on 11/25/2017 for Cholecystitis, underwent Lap tyesha and developed iatrogenic enterotomy. At home her surgical wound started draining some mucoid greenish material and she was advised to come in for evaluation by her surgeon. 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 Patient was admitted , started on IV Zosyn and Flagyl , kept NPO , and managed conservatively with NPO, TPN, and IV antibiotics. Wound cultures were reported as positive for Serratia Liquefaciens and antibiotics changed to Meropenem IV. Patient's drainage resolved and diet was upgraded to regular and she tolerated well and was sent home. 01/08/18 : returns with drainage from fistula again. CT abdomen showed enterocutaneous fistula with a tract better delineated on the current examination, well delineated by oral contrast material including umbilicus or periumbilical abdominal wall deformity. Today 01/18 seen and examined bedside. Still with drainage from fistula > 35 ml. 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 Order TPN daily electrolytes -wnl wound cx form fistula positive for E. Coli and Enterococcus faecalis on Meropenem # 10 and Vanco #8 ID consulted and is following pt. Recommended continuation of IV antibiotics until drainage from fistula is less. Continue wound care around fistula with colostomy bag 2. Anemia, chronic stable pt refused transfusion received IV venofer for 10 days .Will d/c today Hgb 9.7 3.UTI Denies any dysuria or frequency Urine c/s positive for E coli and Enterococcus faecalis Continue meropenem # 10 and Vanco # 8 4. HTN BP stable monitor vitals cont Metoprolol 5 mg IV BID while NPO for sinus tachycardia 5. Hyperlipidemia Hold statin for now due to total NPO status 6. Acute Renal Insufficiency probably secondary to volume depletion, resolved 7. DVT prophylaxis Lovenox
[2018-01-18] MEDS: Metoprolol 1 mg/ml Inj IVP SCH ×2 (09:04→21:52)
[2018-01-18] MEDS: Enoxaparin 30 mg Syringe SC SCH (09:05)
[2018-01-18] MEDS: Meropenem 1 GM in Sodium Chloride 0.9% 100 ML IVPB SCH ×2 (09:05→21:51)
--- NOTE | 2018-01-18 14:02 | CP.PCM.PN ---
Subjective - Date & Time of Evaluation Date of Evaluation: 01/18/18 Time of Evaluation: 14:01 - Subjective Subjective: ID Note- Pt. seen and examined today. pt. frustrated because she states once again there is leakage from her colostomy bag. she denies any abd. pain. denies any fever. Objective - Vital Signs/Intake and Output Vital Signs (last 24 hours): Temp Pulse Resp BP Pulse Ox 97.6 F 100 H 20 118/77 97 01/18/18 08:02 01/18/18 09:04 01/18/18 08:02 01/18/18 09:04 01/18/18 08:02 Intake and Output: 01/18/18 01/18/18 06:59 18:59 Intake Total 520 Output Total 35 Balance 485 - Medications Medications: Current Medications Enoxaparin Sodium (Lovenox) 30 mg SC DAILY [facility] PRN Reason: Protocol Last Admin: 01/18/18 09:05 Dose: 30 mg Vancomycin HCl 750 mg/ Sodium (Chloride) 250 mls @ 166.667 mls/hr IVPB DAILY [facility] PRN Reason: Protocol Last Admin: 01/18/18 11:46 Dose: 166.667 mls/hr Multivitamins/Vitamin C 10 ml/Chromium/Copper/Manganese/Zinc 3 ml/ Amino Acids/ Electrolytes/Dextrose 1,013 mls @ 35 mls/hr IV .Q24H ONE Stop: 01/18/18 16:59 Last Admin: 01/17/18 17:38 Dose: 35 mls/hr Meropenem 1 gm/ Sodium (Chloride) 100 mls @ 100 mls/hr IVPB Q12 [facility] PRN Reason: Protocol Last Admin: 01/18/18 09:05 Dose: 100 mls/hr Latanoprost (Xalatan Opht) 1 drop OU HS [facility] Last Admin: 01/17/18 22:02 Dose: 1 drop Metoprolol Tartrate (Lopressor) 5 mg IVP Q12 [facility] Last Admin: 01/18/18 09:04 Dose: 5 mg Ondansetron HCl (Zofran Inj) 4 mg IVP Q6 PRN PRN Reason: Nausea/Vomiting - Labs Labs: - Additional Findings Additional findings: - Constitutional Appears: No Acute Distress - Head Exam Head Exam: ATRAUMATIC - Eye Exam Eye Exam: EOMI, PERRL - ENT Exam ENT Exam: Normal Oropharynx - Neck Exam Neck exam: Positive for: Full Rom - Respiratory Exam Respiratory Exam: Clear to Auscultation Bilateral, NORMAL BREATHING PATTERN - Cardiovascular Exam Cardiovascular Exam: RRR, +S1, +S2 - GI/Abdominal Exam GI & Abdominal Exam: Normal Bowel Sounds, Soft Additional comments: NT, ND midabdminal area small opening with yellowish discharge, currently has colostomy bag covering it but inferior tape aspect is leaking no surrounding erythema - Extremities Exam Extremities exam: Positive for: normal inspection Neuro- AAO x 3 Laboratory Results - last 72 hr 01/15/18 01/16/18 01/16/18 19:55 06:20 07:18 WBC RBC Hgb Hct MCV MCH MCHC RDW Plt Count Sodium 141 Potassium 3.2 L Chloride 99 Carbon Dioxide 28 Anion Gap 17 BUN 15 Creatinine 0.7 Est GFR ( Amer) > 60 Est GFR (Non-Af Amer) > 60 Random Glucose 121 H Calcium 8.3 L Phosphorus Magnesium 1.4 L Total Bilirubin AST ALT Alkaline Phosphatase Total Protein Albumin Globulin Albumin/Globulin Ratio Triglycerides Cholesterol LDL Cholesterol Direct HDL Cholesterol Urine Color Yellow Urine Clarity Clear Urine pH 7.0 Ur Specific [place] 1.010 Urine Protein Negative Urine Glucose (UA) 50 Urine Ketones Negative Urine Blood Negative Urine Nitrate Negative Urine Bilirubin Negative Urine Urobilinogen 0.2-1.0 Ur Leukocyte Esterase Neg Urine RBC (Auto) 1 Urine Microscopic WBC 1 Ur Squamous Epith Cells < 1 Vancomycin Trough 16.6 H 01/17/18 01/17/18 01/17/18 06:20 06:20 13:36 WBC 5.3 RBC 2.57 L Hgb 8.3 L Hct 24.5 L MCV 95.6 MCH 32.5 H MCHC 34.0 RDW 14.5 Plt Count 222 Sodium 141 Potassium 3.7 Chloride 100 Carbon Dioxide 30 Anion Gap 15 BUN 18 H Creatinine 0.7 Est GFR ( Amer) > 60 Est GFR (Non-Af Amer) > 60 Random Glucose 134 H Calcium 8.4 Phosphorus 2.0 L Magnesium 2.0 Total Bilirubin 0.2 AST 34 ALT 33 Alkaline Phosphatase 69 Total Protein 5.9 L Albumin 2.6 L Globulin 3.3 Albumin/Globulin Ratio 0.8 L Triglycerides Cholesterol LDL Cholesterol Direct HDL Cholesterol Urine Color Urine Clarity Urine pH Ur Specific [place] Urine Protein Urine Glucose (UA) Urine Ketones Urine Blood Urine Nitrate Urine Bilirubin Urine Urobilinogen Ur Leukocyte Esterase Urine RBC (Auto) Urine Microscopic WBC Ur Squamous Epith Cells Vancomycin Trough 10.1 H 01/18/18 01/18/18 05:30 05:30 WBC 5.7 RBC 2.65 L Hgb 9.6 L Hct 25.6 L MCV 96.3 MCH 36.2 H MCHC 37.6 H RDW 14.3 Plt Count 247 Sodium 138 Potassium 3.9 Chloride 100 Carbon Dioxide 28 Anion Gap 14 BUN 19 H Creatinine 0.7 Est GFR ( Amer) > 60 Est GFR (Non-Af Amer) > 60 Random Glucose 120 H Calcium 8.5 Phosphorus 2.6 Magnesium 1.8 Total Bilirubin AST ALT Alkaline Phosphatase Total Protein Albumin Globulin Albumin/Globulin Ratio Triglycerides 731 H D Cholesterol 150 LDL Cholesterol Direct 47 HDL Cholesterol 19 L Urine Color Urine Clarity Urine pH Ur Specific [place] Urine Protein Urine Glucose (UA) Urine Ketones Urine Blood Urine Nitrate Urine Bilirubin Urine Urobilinogen Ur Leukocyte Esterase Urine RBC (Auto) Urine Microscopic WBC Ur Squamous Epith Cells Vancomycin Trough Microbiology 01/08/18 13:00 Blood-Venous Blood Culture - Final NO GROWTH AFTER 5 DAYS 01/08/18 12:30 Blood-Venous Blood Culture - Final NO GROWTH AFTER 5 DAYS 01/08/18 14:27 Urine,Clean Catch Urine Culture - Final Escherichia Coli Enterococcus Faecalis 01/08/18 13:27 Abdomen Gram Stain - Final 01/08/18 13:27 Abdomen Wound Culture - Final Escherichia Coli Enterococcus Faecalis Assessment and Plan (1) Enterocutaneous fistula Status: Acute (2) S/P laparoscopic cholecystectomy Status: Acute - Assessment and Plan (Free Text) Assessment: A/P- 87 year old female s/p recent lap tyesha with subsequent enterocutaneous fistula formation with serratia growth from the wound cx from last admission last month and completed 10 days of IV antibiotics and wound opening had closed, who now presents to ED with opening again at site of the fistula in midabdomen with yellow -green discharge. afebrile normal wbc count + UA urine cx - e.coli not esbl, e.fecalis Wound cx - e.coli and e.fecalis blood cx- neg x 2 repeat UA- Negative plan- has completed 10 days of IV meropenem continue with meropnem till less dishcarge from the fistula site continue with IV vanconycin for now, day #8 for e.fecalis from the wound and urine cx. keep vanco trough <15. would like to d/c IV antibiotics, only continuing it now empirically since pt. has the enterocutaenous fistula still with drainage and is on TPN to help avoid any infections. d/c IV abx as soon as drainage is less and TPN is d/c. colostomy bag management as per surgical team.
[2018-01-18] MEDS ORDERED: Multivitamin (MVI) 10 ML, Chromium/Copper/Manganese/Zinc 3 ML in Amino/Dex E 4.25/25 10... IV ONE (15:00)
[2018-01-18] MEDS: Latanoprost 0.005% Opht SOUTION OU SCH (21:52)
[2018-01-19 07:13] LABS: HEMOGLOBIN 8.1 g/dL (12.0-16.0); MEAN CELL VOLUME 96.6 fl (81.0-99.0); MEAN CORPUSCULAR HGB CONC 33.2 g/dL (33.0-37.0); RBC 2.52 Mil/uL (3.80-5.20); RED CELL DISTRIBUTION WIDTH 14.7 % (11.5-14.5); WHITE BLOOD COUNT 4.8 K/uL (4.8-10.8)
[2018-01-19 07:22] LABS: BLOOD UREA NITROGEN 19 mg/dl (7-17); CALCIUM 8.6 mg/dL (8.4-10.2); GFR AFRICAN-AMERICAN > 60; GFR NON-AFRICAN AMERICAN > 60
[2018-01-19] MEDS: Enoxaparin 30 mg Syringe SC SCH (08:57)
[2018-01-19] MEDS: Metoprolol 1 mg/ml Inj IVP SCH ×2 (08:57→21:09)
[2018-01-19] MEDS: Meropenem 1 GM in Sodium Chloride 0.9% 100 ML IVPB SCH ×2 (08:58→21:15)
--- NOTE | 2018-01-19 10:12 | CP.PCM.PN ---
<Geovany Sims - Last Filed: 01/19/18 10:10> Subjective - Date & Time of Evaluation Date of Evaluation: 01/19/18 Time of Evaluation: 10:10 - Subjective Subjective: SURGERY PROGRESS NOTE FOR DR. LAWLER 87F seen and examined at bedside. Patient states pain is controlled. No acute events over night. Objective - Vital Signs/Intake and Output Vital Signs (last 24 hours): Temp Pulse Resp BP Pulse Ox 98 F 82 20 138/74 96 01/19/18 08:04 01/19/18 08:57 01/19/18 08:04 01/19/18 08:57 01/19/18 08:04 Intake and Output: 01/19/18 01/19/18 06:59 18:59 Intake Total 520 Output Total 20 Balance 500 - Medications Medications: Current Medications Enoxaparin Sodium (Lovenox) 30 mg SC DAILY [facility] PRN Reason: Protocol Last Admin: 01/19/18 08:57 Dose: 30 mg Fat Emulsion Intravenous (Intralipid 20%) 500 ml IV MWF [facility] Vancomycin HCl 750 mg/ Sodium (Chloride) 250 mls @ 166.667 mls/hr IVPB DAILY [facility] PRN Reason: Protocol Last Admin: 01/19/18 08:58 Dose: 166.667 mls/hr Meropenem 1 gm/ Sodium (Chloride) 100 mls @ 100 mls/hr IVPB Q12 [facility] PRN Reason: Protocol Last Admin: 01/19/18 08:58 Dose: 100 mls/hr Multivitamins/Vitamin C 10 ml/Chromium/Copper/Manganese/Zinc 3 ml/ Amino Acids/ Electrolytes/Dextrose 1,013 mls @ 35 mls/hr IV .Q24H ONE Stop: 01/19/18 14:59 Last Admin: 01/18/18 15:51 Dose: 35 mls/hr Latanoprost (Xalatan Opht) 1 drop OU HS [facility] Last Admin: 01/18/18 21:52 Dose: 1 drop Metoprolol Tartrate (Lopressor) 5 mg IVP Q12 [facility] Last Admin: 01/19/18 08:57 Dose: 5 mg Ondansetron HCl (Zofran Inj) 4 mg IVP Q6 PRN PRN Reason: Nausea/Vomiting - Labs Labs: 01/19/18 05:30 01/19/18 05:30 PT 11.7 Seconds (9.8-13.1) 01/08/18 12:40 INR 1.1 (0.9-1.2) 01/08/18 12:40 APTT 26.4 Seconds (25.6-37.1) 01/08/18 12:40 - Constitutional Appears: Well, Non-toxic, No Acute Distress - Respiratory Exam Respiratory Exam: Clear to Ausculation Bilateral, NORMAL BREATHING PATTERN - Cardiovascular Exam Cardiovascular Exam: REGULAR RHYTHM, +S1, +S2 - GI/Abdominal Exam GI & Abdominal Exam: Soft. absent: Distended, Firm, Guarding, Rigid, Tenderness , Rebound Additional comments: enterocutaneous fistula continue to have output which leak around the bag, output measured 30cc - Neurological Exam Neurological Exam: Alert, Awake - Skin Skin Exam: Dry, Intact, Normal Color, Warm Assessment and Plan - Assessment and Plan (Free Text) Assessment: 87F with enterocutaneous fistula Plan: Continue to monitor output NPO, TPN to decrease output Continue antibiotic Will speaks with family about treatment options Further recs discuss with Dr Bucky Sims, PGY2 <Michael Lawler - Last Filed: 01/19/18 14:25> Subjective - Date & Time of Evaluation Time of Evaluation: 14:00 - Subjective Subjective: Patient was seen and examined at the bedside. Agree with resident's note above. Objective - Vital Signs/Intake and Output Vital Signs (last 24 hours): Temp Pulse Resp BP Pulse Ox 98 F 82 20 138/74 96 01/19/18 08:04 01/19/18 08:57 01/19/18 08:04 01/19/18 08:57 01/19/18 08:04 Intake and Output: 01/19/18 01/19/18 06:59 18:59 Intake Total 520 Output Total 20 Balance 500 - Medications Medications: Current Medications Enoxaparin Sodium (Lovenox) 30 mg SC DAILY [facility] PRN Reason: Protocol Last Admin: 01/19/18 08:57 Dose: 30 mg Fat Emulsion Intravenous (Intralipid 20%) 500 ml IV MWF [facility] Vancomycin HCl 750 mg/ Sodium (Chloride) 250 mls @ 166.667 mls/hr IVPB DAILY [facility] PRN Reason: Protocol Last Admin: 01/19/18 08:58 Dose: 166.667 mls/hr Meropenem 1 gm/ Sodium (Chloride) 100 mls @ 100 mls/hr IVPB Q12 [facility] PRN Reason: Protocol Last Admin: 01/19/18 08:58 Dose: 100 mls/hr Multivitamins/Vitamin C 10 ml/Chromium/Copper/Manganese/Zinc 3 ml/ Amino Acids/ Electrolytes/Dextrose 1,013 mls @ 35 mls/hr IV .Q24H ONE Stop: 01/19/18 14:59 Last Admin: 01/18/18 15:51 Dose: 35 mls/hr Latanoprost (Xalatan Opht) 1 drop OU HS [facility] Last Admin: 01/18/18 21:52 Dose: 1 drop Metoprolol Tartrate (Lopressor) 5 mg IVP Q12 [facility] Last Admin: 01/19/18 08:57 Dose: 5 mg Ondansetron HCl (Zofran Inj) 4 mg IVP Q6 PRN PRN Reason: Nausea/Vomiting - Labs Labs: 01/19/18 05:30 01/19/18 05:30 PT 11.7 Seconds (9.8-13.1) 01/08/18 12:40 INR 1.1 (0.9-1.2) 01/08/18 12:40 APTT 26.4 Seconds (25.6-37.1) 01/08/18 12:40
--- NOTE | 2018-01-19 11:37 | CP.PCM.PN ---
Subjective - Date & Time of Evaluation Date of Evaluation: 01/19/18 Time of Evaluation: 11:30 - Subjective Subjective: Patient seen and examined. sitting in chair in NAD. hemodfdynamically stable, afebrile. 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 A ,mbulating freely in unit Denies any pain or discomfort NPO . On TPN via right arm PICC Objective - Vital Signs/Intake and Output Vital Signs (last 24 hours): Temp Pulse Resp BP Pulse Ox 98 F 82 20 138/74 96 01/19/18 08:04 01/19/18 08:57 01/19/18 08:04 01/19/18 08:57 01/19/18 08:04 Intake and Output: 01/19/18 01/19/18 06:59 18:59 Intake Total 520 Output Total 20 Balance 500 - Medications Medications: Current Medications Enoxaparin Sodium (Lovenox) 30 mg SC DAILY [facility] PRN Reason: Protocol Last Admin: 01/19/18 08:57 Dose: 30 mg Fat Emulsion Intravenous (Intralipid 20%) 500 ml IV MWF [facility] Vancomycin HCl 750 mg/ Sodium (Chloride) 250 mls @ 166.667 mls/hr IVPB DAILY [facility] PRN Reason: Protocol Last Admin: 01/19/18 08:58 Dose: 166.667 mls/hr Meropenem 1 gm/ Sodium (Chloride) 100 mls @ 100 mls/hr IVPB Q12 [facility] PRN Reason: Protocol Last Admin: 01/19/18 08:58 Dose: 100 mls/hr Multivitamins/Vitamin C 10 ml/Chromium/Copper/Manganese/Zinc 3 ml/ Amino Acids/ Electrolytes/Dextrose 1,013 mls @ 35 mls/hr IV .Q24H ONE Stop: 01/19/18 14:59 Last Admin: 01/18/18 15:51 Dose: 35 mls/hr Latanoprost (Xalatan Opht) 1 drop OU HS [facility] Last Admin: 01/18/18 21:52 Dose: 1 drop Metoprolol Tartrate (Lopressor) 5 mg IVP Q12 [facility] Last Admin: 01/19/18 08:57 Dose: 5 mg Ondansetron HCl (Zofran Inj) 4 mg IVP Q6 PRN PRN Reason: Nausea/Vomiting - Labs Labs: 01/19/18 05:30 01/19/18 05:30 PT 11.7 Seconds (9.8-13.1) 01/08/18 12:40 INR 1.1 (0.9-1.2) 01/08/18 12:40 APTT 26.4 Seconds (25.6-37.1) 01/08/18 12:40 - Constitutional Appears: Non-toxic, No Acute Distress - Head Exam Head Exam: ATRAUMATIC, NORMAL INSPECTION, NORMOCEPHALIC - Eye Exam Eye Exam: EOMI, Normal appearance, PERRL Pupil Exam: NORMAL ACCOMODATION - ENT Exam ENT Exam: Mucous Membranes Dry, Normal Exam - Neck Exam Neck Exam: Full ROM, Normal Inspection - Respiratory Exam Respiratory Exam: Clear to Ausculation Bilateral, NORMAL BREATHING PATTERN. absent: Rales, Rhonchi, Wheezes - Cardiovascular Exam Cardiovascular Exam: REGULAR RHYTHM, RRR, +S1, +S2. absent: JVD - GI/Abdominal Exam GI & Abdominal Exam: Soft, Normal Bowel Sounds. absent: Distended, Guarding, Rebound Additional comments: mid abdomen enterocutaneous fistula with colostomy bag in place and minimal bilious output - Rectal Exam Rectal Exam: Deferred - Extremities Exam Extremities Exam: Full ROM, Normal Capillary Refill, Normal Inspection. absent : Pedal Edema - Back Exam Back Exam: NORMAL INSPECTION - Neurological Exam Neurological Exam: Alert, Awake, CN II-XII Intact, Oriented x3 - Psychiatric Exam Psychiatric exam: Anxious, Normal Affect - Skin Skin Exam: Dry, Pallor, Warm Assessment and Plan - Assessment and Plan (Free Text) Assessment: 87 yo female with a past medical history of arthritis and hypertension was recently admitted to [facility] on 11/25/2017 for Cholecystitis, underwent Lap tyesha and developed iatrogenic enterotomy. At home her surgical wound started draining some mucoid greenish material and she was advised to come in for evaluation by her surgeon. 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 Patient was admitted , started on IV Zosyn and Flagyl , kept NPO , and managed conservatively with NPO, TPN, and IV antibiotics. Wound cultures were reported as positive for Serratia Liquefaciens and antibiotics changed to Meropenem IV. Patient's drainage resolved and diet was upgraded to regular and she tolerated well and was sent home. 01/08/18 : returns with drainage from fistula again. CT abdomen showed enterocutaneous fistula with a tract better delineated on the current examination, well delineated by oral contrast material including umbilicus or periumbilical abdominal wall deformity. Today 01/19 seen and examined bedside. Still with drainage from fistula 20 ml last 12 hours 1. Enterocutaneous Fistula still with bilious output approx 20 ml last 12 hours surgery on consult , Continue conservative treatment until Saturday (tomorrow ).If no improvement will need surgical repair of fistula Keep patient NPO and continue TPN via PICC. Order TPN daily electrolytes -wnl wound cx form fistula positive for E. Coli and Enterococcus faecalis on Meropenem # 11 and Vanco #9 ID consulted and is following pt. Recommended continuation of IV antibiotics until drainage from fistula is less. Continue wound care around fistula with colostomy bag 2. Anemia, chronic stable pt refused transfusion received IV venofer for 10 days .Discontinued 01/18 Hgb 8.1 3.UTI Denies any dysuria or frequency Urine c/s positive for E coli and Enterococcus faecalis Continue meropenem # 11 and Vanco # 9 4. HTN BP stable monitor vitals cont Metoprolol 5 mg IV BID while NPO for sinus tachycardia 5. Hyperlipidemia Hold statin for now due to total NPO status 6. Acute Renal Insufficiency probably secondary to volume depletion, resolved 7. DVT prophylaxis Lovenox
[2018-01-19] MEDS ORDERED: Multivitamin (MVI) 10 ML, Chromium/Copper/Manganese/Zinc 3 ML in Amino/Dex E 4.25/25 10... IV ONE (14:45)
[2018-01-19] MEDS: Latanoprost 0.005% Opht SOUTION OU SCH (21:17)
[2018-01-20 07:09] LABS: HEMOGLOBIN 8.2 g/dL (12.0-16.0); MEAN CORPUSCULAR HEMOGLOBIN 32.1 pg (27.0-31.0); MEAN CORPUSCULAR HGB CONC 33.1 g/dL (33.0-37.0); RBC 2.56 Mil/uL (3.80-5.20); RED CELL DISTRIBUTION WIDTH 14.8 % (11.5-14.5); WHITE BLOOD COUNT 4.5 K/uL (4.8-10.8)
[2018-01-20 07:11] LABS: BLOOD UREA NITROGEN 20 mg/dl (7-17); CALCIUM 8.8 mg/dL (8.4-10.2); GFR AFRICAN-AMERICAN > 60; GFR NON-AFRICAN AMERICAN > 60
[2018-01-20 07:37] LABS: INR 1.1 (0.9-1.2); PROTHROMBIN TIME 11.7 Seconds (9.8-13.1)
--- NOTE | 2018-01-20 07:40 | CP.PCM.PN ---
Subjective - Date & Time of Evaluation Date of Evaluation: 01/20/18 Time of Evaluation: 11:00 - Subjective Subjective: Patient seen and examined. sitting in chair in NAD.Feeling well. denies any pain or discomfort .Hemodynamically stable, afebrile. No acute issues overnight. Daughter bedside . All questions answered . On TPN via right arm PICC for OR on Saturday Objective - Vital Signs/Intake and Output Vital Signs (last 24 hours): Temp Pulse Resp BP Pulse Ox 97.5 F L 81 18 134/72 98 01/20/18 00:30 01/20/18 00:30 01/20/18 00:30 01/20/18 00:30 01/20/18 00:30 Intake and Output: 01/20/18 01/20/18 06:59 18:59 Intake Total 520 Output Total 20 Balance 500 - Medications Medications: Current Medications Enoxaparin Sodium (Lovenox) 30 mg SC DAILY [facility] PRN Reason: Protocol Last Admin: 01/19/18 08:57 Dose: 30 mg Fat Emulsion Intravenous (Intralipid 20%) 500 ml IV MWF [facility] Vancomycin HCl 750 mg/ Sodium (Chloride) 250 mls @ 166.667 mls/hr IVPB DAILY [facility] PRN Reason: Protocol Last Admin: 01/19/18 08:58 Dose: 166.667 mls/hr Meropenem 1 gm/ Sodium (Chloride) 100 mls @ 100 mls/hr IVPB Q12 [facility] PRN Reason: Protocol Last Admin: 01/19/18 21:15 Dose: 100 mls/hr Multivitamins/Vitamin C 10 ml/Chromium/Copper/Manganese/Zinc 3 ml/ Amino Acids/ Electrolytes/Dextrose 1,013 mls @ 35 mls/hr IV .Q24H ONE Stop: 01/20/18 14:44 Last Admin: 01/19/18 16:29 Dose: 35 mls/hr Latanoprost (Xalatan Opht) 1 drop OU HS [facility] Last Admin: 01/19/18 21:17 Dose: 1 drop Metoprolol Tartrate (Lopressor) 5 mg IVP Q12 [facility] Last Admin: 01/19/18 21:09 Dose: 5 mg Ondansetron HCl (Zofran Inj) 4 mg IVP Q6 PRN PRN Reason: Nausea/Vomiting - Labs Labs: 01/19/18 05:30 01/20/18 06:25 PT 11.7 Seconds (9.8-13.1) 01/20/18 06:25 INR 1.1 (0.9-1.2) 01/20/18 06:25 APTT 26.4 Seconds (25.6-37.1) 01/08/18 12:40 - Constitutional Appears: Non-toxic, No Acute Distress - Head Exam Head Exam: ATRAUMATIC, NORMAL INSPECTION, NORMOCEPHALIC - Eye Exam Eye Exam: EOMI, Normal appearance, PERRL Pupil Exam: NORMAL ACCOMODATION - ENT Exam ENT Exam: Mucous Membranes Dry, Normal Exam - Neck Exam Neck Exam: Full ROM, Normal Inspection - Respiratory Exam Respiratory Exam: Clear to Ausculation Bilateral, NORMAL BREATHING PATTERN. absent: Rales, Rhonchi, Wheezes - Cardiovascular Exam Cardiovascular Exam: REGULAR RHYTHM, RRR, +S1, +S2. absent: JVD - GI/Abdominal Exam GI & Abdominal Exam: Soft, Normal Bowel Sounds. 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 absent: Pedal Edema - Back Exam Back Exam: NORMAL INSPECTION - Neurological Exam Neurological Exam: Alert, Awake, CN II-XII Intact, Oriented x3 - Psychiatric Exam Psychiatric exam: Normal Affect - Skin Skin Exam: Dry, Pallor, Warm Assessment and Plan - Assessment and Plan (Free Text) Assessment: 87 yo female with a past medical history of arthritis and hypertension was recently admitted to [facility] on 11/25/2017 for Cholecystitis, underwent Lap tyesha and developed iatrogenic enterotomy. At home her surgical wound started draining some mucoid greenish material and she was advised to come in for evaluation by her surgeon. 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 Patient was admitted , started on IV Zosyn and Flagyl , kept NPO , and managed conservatively with NPO, TPN, and IV antibiotics. Wound cultures were reported as positive for Serratia Liquefaciens and antibiotics changed to Meropenem IV. Patient's drainage resolved and diet was upgraded to regular and she tolerated well and was sent home. 01/08/18 : returns with drainage from fistula again. CT abdomen showed enterocutaneous fistula with a tract better delineated on the current examination, well delineated by oral contrast material including umbilicus or periumbilical abdominal wall deformity. Today 01/20 Feeling better . 50 ml output from fistula last 24 hours discussed with surgery . plan for OR on Saturday 1. Enterocutaneous Fistula still with bilious output ,50 ml last [address] Lawler. plan for OR on Saturday for fistula resection Will call cardiology consult for preop clearance Continue TPN via PICC line order daily based on electrolytes. Increase rate to 38 ml /hr repeat electrolytes in AM On meropenem and Vanco IV as per ID until drainage from fistula is less . wound cx form fistula positive for E. Coli and Enterococcus faecalis 2. Anemia, chronic stable pt refused transfusion received IV venofer for 10 days .Discontinued 01/18 Hgb 8.2 Discussed with daughter about surgery . They agree to transfusion if needed. 3.UTI - treated Urine c/s positive for E coli and Enterococcus faecalis on meropenem # 12 and Vanco # 10 4. HTN BP stable monitor vitals cont Metoprolol 5 mg IV BID while NPO for sinus tachycardia 5. Hyperlipidemia Hold statin for now due to total NPO status 6. Acute Renal Insufficiency probably secondary to volume depletion, resolved 7. DVT prophylaxis Lovenox
[2018-01-20] MEDS: Metoprolol 1 mg/ml Inj IVP SCH ×2 (08:52→20:52)
[2018-01-20] MEDS: Enoxaparin 30 mg Syringe SC SCH (08:53)
[2018-01-20] MEDS: Meropenem 1 GM in Sodium Chloride 0.9% 100 ML IVPB SCH ×2 (08:53→20:52)
--- NOTE | 2018-01-20 09:15 | CP.PCM.PN ---
Addendum entered and electronically signed by Joshua Vincent DO 01/20/18 12:13: Patient will need medical and cardiac clearance Plan for OR this Saturday D/w Dr. Bucky Santana PGY2 Original Note: <Darleen Howell - Last Filed: 01/20/18 09:12> Subjective - Date & Time of Evaluation Date of Evaluation: 01/20/18 Time of Evaluation: 09:13 - Subjective Subjective: SURGERY PROGRESS NOTE FOR DR. FREGOSO 87F seen and examined at bedside. Patient states pain is controlled. No acute events over night. Denies of any F/N/V/C/SOB/CP. Reports of being tired. Objective - Vital Signs/Intake and Output Vital Signs (last 24 hours): Temp Pulse Resp BP Pulse Ox 98.2 F 94 H 20 151/77 H 99 01/20/18 07:58 01/20/18 08:52 01/20/18 07:58 01/20/18 08:52 01/20/18 07:58 Intake and Output: 01/20/18 01/20/18 06:59 18:59 Intake Total 520 Output Total 20 Balance 500 - Medications Medications: Current Medications Enoxaparin Sodium (Lovenox) 30 mg SC DAILY [facility] PRN Reason: Protocol Last Admin: 01/20/18 08:53 Dose: 30 mg Fat Emulsion Intravenous (Intralipid 20%) 500 ml IV MWF [facility] Vancomycin HCl 750 mg/ Sodium (Chloride) 250 mls @ 166.667 mls/hr IVPB DAILY [facility] PRN Reason: Protocol Last Admin: 01/20/18 08:54 Dose: 166.667 mls/hr Meropenem 1 gm/ Sodium (Chloride) 100 mls @ 100 mls/hr IVPB Q12 [facility] PRN Reason: Protocol Last Admin: 01/20/18 08:53 Dose: 100 mls/hr Multivitamins/Vitamin C 10 ml/Chromium/Copper/Manganese/Zinc 3 ml/ Amino Acids/ Electrolytes/Dextrose 1,013 mls @ 35 mls/hr IV .Q24H ONE Stop: 01/20/18 14:44 Last Admin: 01/19/18 16:29 Dose: 35 mls/hr Latanoprost (Xalatan Opht) 1 drop OU HS [facility] Last Admin: 01/19/18 21:17 Dose: 1 drop Metoprolol Tartrate (Lopressor) 5 mg IVP Q12 [facility] Last Admin: 01/20/18 08:52 Dose: 5 mg Ondansetron HCl (Zofran Inj) 4 mg IVP Q6 PRN PRN Reason: Nausea/Vomiting - Labs Labs: 01/20/18 06:25 01/20/18 06:25 PT 11.7 Seconds (9.8-13.1) 01/20/18 06:25 INR 1.1 (0.9-1.2) 01/20/18 06:25 APTT 26.4 Seconds (25.6-37.1) 01/08/18 12:40 - Constitutional Appears: Well, Non-toxic, No Acute Distress - Head Exam Head Exam: ATRAUMATIC - ENT Exam ENT Exam: Normal Exam - Neck Exam Neck Exam: Normal Inspection - Respiratory Exam Respiratory Exam: NORMAL BREATHING PATTERN - GI/Abdominal Exam GI & Abdominal Exam: Soft. absent: Rigid, Hernia, Mass Additional comments: enterocutaneous fistula continue to have output, very minimal leakage noted around the bag, output measured 20cc - Rectal Exam Rectal Exam: Deferred - Neurological Exam Neurological Exam: Alert, Awake, Oriented x3 - Psychiatric Exam Psychiatric exam: Normal Affect, Normal Mood Assessment and Plan - Assessment and Plan (Free Text) Assessment: 87F with enterocutaneous fistula Plan: Continue to monitor output NPO, TPN to decrease output Continue antibiotic Surgical options will be discussed with the family and the patient Further recs discuss with Dr Fregoso <Michael Fregoso - Last Filed: 01/20/18 12:18> Subjective - Date & Time of Evaluation Time of Evaluation: 11:00 - Subjective Subjective: Patient was seen and examined at the bedside. Agree with resident's note above. Objective - Vital Signs/Intake and Output Vital Signs (last 24 hours): Temp Pulse Resp BP Pulse Ox 98.2 F 94 H 20 151/77 H 99 01/20/18 07:58 01/20/18 08:52 01/20/18 07:58 01/20/18 08:52 01/20/18 07:58 Intake and Output: 01/20/18 01/20/18 06:59 18:59 Intake Total 520 Output Total 20 Balance 500 - Medications Medications: Current Medications Enoxaparin Sodium (Lovenox) 30 mg SC DAILY [facility] PRN Reason: Protocol Last Admin: 01/20/18 08:53 Dose: 30 mg Fat Emulsion Intravenous (Intralipid 20%) 500 ml IV MWF [facility] Vancomycin HCl 750 mg/ Sodium (Chloride) 250 mls @ 166.667 mls/hr IVPB DAILY [facility] PRN Reason: Protocol Last Admin: 01/20/18 08:54 Dose: 166.667 mls/hr Meropenem 1 gm/ Sodium (Chloride) 100 mls @ 100 mls/hr IVPB Q12 [facility] PRN Reason: Protocol Last Admin: 01/20/18 08:53 Dose: 100 mls/hr Multivitamins/Vitamin C 10 ml/Chromium/Copper/Manganese/Zinc 3 ml/ Amino Acids/ Electrolytes/Dextrose 1,013 mls @ 35 mls/hr IV .Q24H ONE Stop: 01/20/18 14:44 Last Admin: 01/19/18 16:29 Dose: 35 mls/hr Latanoprost (Xalatan Opht) 1 drop OU HS [facility] Last Admin: 01/19/18 21:17 Dose: 1 drop Metoprolol Tartrate (Lopressor) 5 mg IVP Q12 [facility] Last Admin: 01/20/18 08:52 Dose: 5 mg Ondansetron HCl (Zofran Inj) 4 mg IVP Q6 PRN PRN Reason: Nausea/Vomiting - Labs Labs: 01/20/18 06:25 01/20/18 06:25 PT 11.7 Seconds (9.8-13.1) 01/20/18 06:25 INR 1.1 (0.9-1.2) 01/20/18 06:25 APTT 26.4 Seconds (25.6-37.1) 01/08/18 12:40 Assessment and Plan - Assessment and Plan (Free Text) Plan: - Medical and cardiac clearance - Plan for OR on 01/22/18
[2018-01-20] MEDS ORDERED: [UNRECOGNIZED DRUG - NUTRITION] IV ONE (15:30)
[2018-01-20] MEDS: Latanoprost 0.005% Opht SOUTION OU SCH (21:57)
[2018-01-21 06:45] LABS: HEMOGLOBIN 8.7 g/dL (12.0-16.0); MEAN CELL VOLUME 96.3 fl (81.0-99.0); MEAN CORPUSCULAR HEMOGLOBIN 32.4 pg (27.0-31.0); MEAN CORPUSCULAR HGB CONC 33.6 g/dL (33.0-37.0); RBC 2.68 Mil/uL (3.80-5.20); RED CELL DISTRIBUTION WIDTH 14.9 % (11.5-14.5); WHITE BLOOD COUNT 5.6 K/uL (4.8-10.8)
[2018-01-21 06:52] LABS: BLOOD UREA NITROGEN 19 mg/dl (7-17); CALCIUM 8.9 mg/dL (8.4-10.2); GFR AFRICAN-AMERICAN > 60; GFR NON-AFRICAN AMERICAN > 60
--- NOTE | 2018-01-21 08:08 | CP.PCM.PN ---
<Geovany Sims - Last Filed: 01/21/18 08:06> Subjective - Date & Time of Evaluation Date of Evaluation: 01/21/18 Time of Evaluation: 08:06 - Subjective Subjective: SURGERY PROGRESS NOTE FOR DR. LAWLER 87F seen and examined at bedside. No acute events overnight. Patient continues to have drainages from fistula. States pain is improved. Denies fevers, chills, nausea, vomiting. Objective - Vital Signs/Intake and Output Vital Signs (last 24 hours): Temp Pulse Resp BP Pulse Ox 98.0 F 87 20 127/73 98 01/21/18 08:04 01/21/18 08:04 01/21/18 08:04 01/21/18 08:04 01/21/18 08:04 - Medications Medications: Current Medications Enoxaparin Sodium (Lovenox) 30 mg SC DAILY [facility] PRN Reason: Protocol Last Admin: 01/20/18 08:53 Dose: 30 mg Vancomycin HCl 750 mg/ Sodium (Chloride) 250 mls @ 166.667 mls/hr IVPB DAILY [facility] PRN Reason: Protocol Last Admin: 01/20/18 08:54 Dose: 166.667 mls/hr Meropenem 1 gm/ Sodium (Chloride) 100 mls @ 100 mls/hr IVPB Q12 [facility] PRN Reason: Protocol Last Admin: 01/20/18 20:52 Dose: 100 mls/hr Chromium/Copper/Manganese/Zinc 3 ml/ Multivitamins/Vitamin C 10 ml/ Amino Acids/ Electrolytes/Dextrose 1,013 mls @ 38 mls/hr IV .Q24H ONE Stop: 01/21/18 15:29 Last Admin: 01/20/18 16:54 Dose: 38 mls/hr Latanoprost (Xalatan Opht) 1 drop OU HS [facility] Last Admin: 01/20/18 21:57 Dose: 1 drop Metoprolol Tartrate (Lopressor) 5 mg IVP Q12 [facility] Last Admin: 01/20/18 20:52 Dose: 5 mg Ondansetron HCl (Zofran Inj) 4 mg IVP Q6 PRN PRN Reason: Nausea/Vomiting - Labs Labs: 01/21/18 06:10 01/21/18 06:10 PT 11.7 Seconds (9.8-13.1) 01/20/18 06:25 INR 1.1 (0.9-1.2) 01/20/18 06:25 APTT 26.4 Seconds (25.6-37.1) 01/08/18 12:40 - Constitutional Appears: Well, Non-toxic, No Acute Distress - Respiratory Exam Respiratory Exam: Clear to Ausculation Bilateral, NORMAL BREATHING PATTERN - Cardiovascular Exam Cardiovascular Exam: REGULAR RHYTHM, +S1, +S2 - GI/Abdominal Exam GI & Abdominal Exam: Soft. absent: Distended, Firm, Guarding, Rigid, Tenderness , Rebound Additional comments: succus output from enterocutaneuous fistula - Neurological Exam Neurological Exam: Alert, Awake - Psychiatric Exam Psychiatric exam: Normal Affect, Normal Mood - Skin Skin Exam: Dry, Intact, Normal Color, Warm Additional comments: mild redness around fistula site Assessment and Plan - Assessment and Plan (Free Text) Assessment: 87F with enterocutaneous fistula Plan: - patient scheduled to go to OR tomorrow - NPO, IVF, TPN - Pain control, antibiotics as per ID - Wound care Further recs discuss with Dr. Bucky Sims, PGY2 <Michael Lawler - Last Filed: 01/21/18 10:16> Subjective - Date & Time of Evaluation Time of Evaluation: 09:35 - Subjective Subjective: Patient was seen and examined at the bedside. Agree with resident's note above. Objective - Vital Signs/Intake and Output Vital Signs (last 24 hours): Temp Pulse Resp BP Pulse Ox 98.0 F 87 20 127/73 98 01/21/18 08:04 01/21/18 08:04 01/21/18 08:04 01/21/18 08:04 01/21/18 08:04 - Medications Medications: Current Medications Enoxaparin Sodium (Lovenox) 30 mg SC DAILY [facility] PRN Reason: Protocol Last Admin: 01/21/18 08:41 Dose: 30 mg Vancomycin HCl 750 mg/ Sodium (Chloride) 250 mls @ 166.667 mls/hr IVPB DAILY [facility] PRN Reason: Protocol Last Admin: 01/21/18 08:40 Dose: 166.667 mls/hr Meropenem 1 gm/ Sodium (Chloride) 100 mls @ 100 mls/hr IVPB Q12 [facility] PRN Reason: Protocol Last Admin: 01/21/18 08:40 Dose: 100 mls/hr Chromium/Copper/Manganese/Zinc 3 ml/ Multivitamins/Vitamin C 10 ml/ Amino Acids/ Electrolytes/Dextrose 1,013 mls @ 38 mls/hr IV .Q24H ONE Stop: 01/21/18 15:29 Last Admin: 01/20/18 16:54 Dose: 38 mls/hr Potassium Phosphate 30 mmole/ (Sodium Chloride) 260 mls @ 65 mls/hr IV ONCE ONE Stop: 01/21/18 12:59 Latanoprost (Xalatan Opht) 1 drop OU HS [facility] Last Admin: 01/20/18 21:57 Dose: 1 drop Metoprolol Tartrate (Lopressor) 5 mg IVP Q12 [facility] Last Admin: 01/21/18 08:42 Dose: 5 mg Ondansetron HCl (Zofran Inj) 4 mg IVP Q6 PRN PRN Reason: Nausea/Vomiting - Labs Labs: 01/21/18 06:10 01/21/18 06:10 PT 11.7 Seconds (9.8-13.1) 01/20/18 06:25 INR 1.1 (0.9-1.2) 01/20/18 06:25 APTT 26.4 Seconds (25.6-37.1) 01/08/18 12:40 Assessment and Plan - Assessment and Plan (Free Text) Plan: - Cardiac and medical clearance for surgery - To OR tomorrow
[2018-01-21] MEDS: Meropenem 1 GM in Sodium Chloride 0.9% 100 ML IVPB SCH ×2 (08:40→21:12)
[2018-01-21] MEDS: Enoxaparin 30 mg Syringe SC SCH (08:41)
[2018-01-21] MEDS: Metoprolol 1 mg/ml Inj IVP SCH ×2 (08:42→21:07)
[2018-01-21] MEDS ORDERED: Potassium Phosphate 30 MMOLE in Sodium Chloride 0.9% 250 ML IV ONE (09:00)
--- NOTE | 2018-01-21 11:17 | CP.PCM.PN ---
Subjective - Date & Time of Evaluation Date of Evaluation: 01/21/18 Time of Evaluation: 10:45 - Subjective Subjective: No fever denies abd pain brownish drainage from Fistula no CP no SOB On TPN Pt is Anemic however asymptomatic Objective - Vital Signs/Intake and Output Vital Signs (last 24 hours): Temp Pulse Resp BP Pulse Ox 98.0 F 87 20 127/73 98 01/21/18 08:04 01/21/18 08:04 01/21/18 08:04 01/21/18 08:04 01/21/18 08:04 - Medications Medications: Current Medications Enoxaparin Sodium (Lovenox) 30 mg SC DAILY [facility] PRN Reason: Protocol Last Admin: 01/21/18 08:41 Dose: 30 mg Vancomycin HCl 750 mg/ Sodium (Chloride) 250 mls @ 166.667 mls/hr IVPB DAILY [facility] PRN Reason: Protocol Last Admin: 01/21/18 08:40 Dose: 166.667 mls/hr Meropenem 1 gm/ Sodium (Chloride) 100 mls @ 100 mls/hr IVPB Q12 [facility] PRN Reason: Protocol Last Admin: 01/21/18 08:40 Dose: 100 mls/hr Chromium/Copper/Manganese/Zinc 3 ml/ Multivitamins/Vitamin C 10 ml/ Amino Acids/ Electrolytes/Dextrose 1,013 mls @ 38 mls/hr IV .Q24H ONE Stop: 01/21/18 15:29 Last Admin: 01/20/18 16:54 Dose: 38 mls/hr Potassium Phosphate 30 mmole/ (Sodium Chloride) 260 mls @ 65 mls/hr IV ONCE ONE Stop: 01/21/18 12:59 Latanoprost (Xalatan Opht) 1 drop OU HS [facility] Last Admin: 01/20/18 21:57 Dose: 1 drop Metoprolol Tartrate (Lopressor) 5 mg IVP Q12 [facility] Last Admin: 01/21/18 08:42 Dose: 5 mg Ondansetron HCl (Zofran Inj) 4 mg IVP Q6 PRN PRN Reason: Nausea/Vomiting - Labs Labs: 01/21/18 06:10 01/21/18 06:10 PT 11.7 Seconds (9.8-13.1) 01/20/18 06:25 INR 1.1 (0.9-1.2) 01/20/18 06:25 APTT 26.4 Seconds (25.6-37.1) 01/08/18 12:40 - Constitutional Appears: No Acute Distress - Head Exam Head Exam: NORMAL INSPECTION, NORMOCEPHALIC - Eye Exam Eye Exam: EOMI, Normal appearance Pupil Exam: NORMAL ACCOMODATION - ENT Exam ENT Exam: Mucous Membranes Dry, Normal External Ear Exam - Neck Exam Neck Exam: Full ROM. absent: Meningismus - Respiratory Exam Respiratory Exam: NORMAL BREATHING PATTERN. absent: Respiratory Distress - Cardiovascular Exam Cardiovascular Exam: REGULAR RHYTHM, +S1, +S2 - GI/Abdominal Exam GI & Abdominal Exam: Soft, Normal Bowel Sounds. absent: Tenderness Additional comments: Abd wall fistula with greenish brown drainage, Colostomy bag placed to collect drainage - Extremities Exam Extremities Exam: Full ROM, Normal Capillary Refill. absent: Calf Tenderness - Back Exam Back Exam: Full ROM. absent: CVA tenderness (L), CVA tenderness (R) - Neurological Exam Neurological Exam: Alert, Awake, CN II-XII Intact, Oriented x3 Neuro motor strength exam: Left Upper Extremity: 5, Right Upper Extremity: 5, Left Lower Extremity: 5, Right Lower Extremity: 5 - Psychiatric Exam Psychiatric exam: Normal Affect, Normal Mood - Skin Skin Exam: Dry, Normal Color, Warm Assessment and Plan - Assessment and Plan (Free Text) Assessment: 87 yo female with a past medical history of arthritis and hypertension was recently admitted to [facility] on 11/25/2017 for Cholecystitis, underwent Lap tyesha and developed iatrogenic enterotomy. At home her surgical wound started draining some mucoid greenish material and she was advised to come in for evaluation by her surgeon. 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 Patient was admitted , started on IV Zosyn and Flagyl , kept NPO , and managed conservatively with NPO, TPN, and IV antibiotics. Wound cultures were reported as positive for Serratia Liquefaciens and antibiotics changed to Meropenem IV. Patient's drainage resolved and diet was upgraded to regular and she tolerated well and was sent home. 01/08/18 : returns with drainage from fistula again. CT abdomen showed enterocutaneous fistula with a tract better delineated on the current examination, well delineated by oral contrast material including umbilicus or periumbilical abdominal wall deformity. Today 01/20 Feeling better . 50 ml output from fistula last 24 hours discussed with surgery . plan for OR on Saturday 1. Enterocutaneous Fistula still with bilious output ,70 ml last [address] Lawler. plan for OR tomorrow for fistula resection Dr Garrett ; optimized pt for surgery - no cardiac contraindication Continue TPN via PICC line On meropenem and Vanco IV as per ID until drainage from fistula is less . wound cx form fistula positive for E. Coli and Enterococcus faecalis 2. Anemia, chronic stable pt refused transfusion received IV venofer for 10 days .Discontinued 01/18 Discussed with daughter about surgery . They agree to transfusion if needed. 3.UTI - treated Urine c/s positive for E coli and Enterococcus faecalis on meropenem and Vanco 4. HTN BP stable monitor vitals cont Metoprolol 5 mg IV BID while NPO for sinus tachycardia 5. Hyperlipidemia Hold statin for now due to total NPO status 6. Acute Renal Insufficiency probably secondary to volume depletion, resolved 7. DVT prophylaxis Lovenox - hold in am
[2018-01-21] MEDS ORDERED: Multivitamin (MVI) 10 ML, Trace Elements-Cr/Cu/Mn/Zn 3 ML in Amino/Dex E 4.25/25 1000ml... IV ONE (13:30)
--- NOTE | 2018-01-21 14:09 | CP.PCM.CON ---
History of Present Illness - History of Present Illness History of Present Illness: This 87 -year-old female who has a fistula subsequent to a cholecystectomy in November of this year is scheduled to go back to the operating room to have this fistula closed. This consultation was requested for a cardiological evaluation prior to proceeding with surgery. The patient has a history of hypertension. She has never experienced any chest pain or symptoms of myocardial infarction. She is not a diabetic. She was never a smoker. The patient denies any episode of chills or fevers. Physical examination shows an elderly lady who is lying flat in bed quite alert , awake and coherent. Her heart rate was 70 bpm and regular and her blood pressure was 136/72 mmHg. Her jugular venous pressure was not elevated and there was no edema over her lower extremities. The pedal pulses were well felt. There were no carotid bruits. The extremities were warm and her nailbeds were pink. There was no central or peripheral cyanosis. There was no clubbing. Her abdomen was soft. There was no guarding or rigidity. A fistula subsequent to the cholecystectomy procedure was evident. Her electrocardiogram done today shows sinus rhythm with a normal EKG pattern. This was compared to her earlier electro-cardiogram going back to November of this year and the tracings were identical. An echocardiogram prior to her November surgery was reviewed. It showed a normal-sized left ventricle with preserved systolic function with no significant valve abnormalities. Her lab data was noted. Her electrolytes and BUN/creatinine were stable. Impression: Recent cholecystectomy with a persistent fistula. The patient is stable from cardiovascular point of view to proceed with the planned surgery. Past Patient History - Past Medical History & Family History Past Medical History?: Yes - Past Social History Smoking Status: Never Smoked - CARDIAC Hx Cardiac Disorders: Yes Hx Hypercholesterolemia: Yes Hx Hypertension: Yes - PULMONARY Hx Respiratory Disorders: No - NEUROLOGICAL Hx Neurological Disorder: No - HEENT Hx HEENT Problems: Yes Hx Cataracts: Yes - RENAL Hx Chronic Kidney Disease: No - ENDOCRINE/METABOLIC Hx Endocrine Disorders: No - HEMATOLOGICAL/ONCOLOGICAL Hx Blood Disorders: Yes Hx Anemia: Yes - INTEGUMENTARY Hx Dermatological Problems: No - MUSCULOSKELETAL/RHEUMATOLOGICAL Hx Musculoskeletal Disorders: Yes Hx Arthritis: Yes Hx Falls: No - GASTROINTESTINAL Hx Gastrointestinal Disorders: No - GENITOURINARY/GYNECOLOGICAL Hx Genitourinary Disorders: No - PSYCHIATRIC Hx Psychophysiologic Disorder: Yes Hx Depression: Yes Hx Substance Use: No - SURGICAL HISTORY Hx Surgeries: Yes Hx Appendectomy: Yes Hx Cholecystectomy: Yes Other/Comment: cataract surgery (as per family) - ANESTHESIA Hx Anesthesia: Yes Hx Anesthesia Reactions: No Hx Malignant Hyperthermia: No Meds Allergies/Adverse Reactions: Allergies Allergy/AdvReac Type Severity Reaction Status Date / Time Penicillins Allergy RASH Verified 01/08/18 11:56 - Medications Medications: Current Medications Enoxaparin Sodium (Lovenox) 30 mg SC DAILY [facility] PRN Reason: Protocol Last Admin: 01/21/18 08:41 Dose: 30 mg Vancomycin HCl 750 mg/ Sodium (Chloride) 250 mls @ 166.667 mls/hr IVPB DAILY [facility] PRN Reason: Protocol Last Admin: 01/21/18 08:40 Dose: 166.667 mls/hr Meropenem 1 gm/ Sodium (Chloride) 100 mls @ 100 mls/hr IVPB Q12 [facility] PRN Reason: Protocol Last Admin: 01/21/18 08:40 Dose: 100 mls/hr Multivitamins/Vitamin C 10 ml/Chromium/Copper/Manganese/Zinc 3 ml/ Amino Acids/ Electrolytes/Dextrose 1,013 mls @ 38 mls/hr IV .Q24H ONE Stop: 01/22/18 13:29 Latanoprost (Xalatan Opht) 1 drop OU HS [facility] Last Admin: 01/20/18 21:57 Dose: 1 drop Metoprolol Tartrate (Lopressor) 5 mg IVP Q12 [facility] Last Admin: 01/21/18 08:42 Dose: 5 mg Ondansetron HCl (Zofran Inj) 4 mg IVP Q6 PRN PRN Reason: Nausea/Vomiting Results - Vital Signs Recent Vital Signs: Last Vital Signs Temp 98.0 F 01/21/18 08:04 Pulse 87 01/21/18 08:04 Resp 20 01/21/18 08:04 BP 127/73 01/21/18 08:04 Pulse Ox 98 01/21/18 08:04 - Labs Result Diagrams: 01/21/18 06:10 01/21/18 06:10 Labs: Laboratory Results - last 24 hr 01/21/18 01/21/18 06:10 06:10 WBC 5.6 RBC 2.68 L Hgb 8.7 L Hct 25.8 L MCV 96.3 MCH 32.4 H MCHC 33.6 RDW 14.9 H Plt Count 182 Sodium 142 Potassium 3.9 Chloride 103 Carbon Dioxide 32 H Anion Gap 11 BUN 19 H Creatinine 0.8 Est GFR ( Amer) > 60 Est GFR (Non-Af Amer) > 60 Random Glucose 116 H Calcium 8.9 Phosphorus 1.9 L Magnesium 2.0
[2018-01-21] MEDS: Latanoprost 0.005% Opht SOUTION OU SCH (21:13)
[2018-01-22] MEDS: Metoprolol 1 mg/ml Inj IVP SCH ×2 (08:31→21:39)
[2018-01-22] MEDS: Meropenem 1 GM in Sodium Chloride 0.9% 100 ML IVPB SCH ×2 (08:38→21:38)
[2018-01-22] MEDS ORDERED: Succinylcholine 200 mg/10 ml Inj IV ONE (09:36)
[2018-01-22] MEDS ORDERED: Lidocaine 4% (Laryng-O-Jet) Kit MM ONE (09:36)
[2018-01-22] MEDS ORDERED: ePHEDrine 50 mg/ml Inj ONE (09:36)
[2018-01-22] MEDS ORDERED: Etomidate 20 mg/10ml Inj IV ONE (09:37)
[2018-01-22 10:19] LABS: HEMOGLOBIN 8.6 g/dL (12.0-16.0); MEAN CELL VOLUME 96.4 fl (81.0-99.0); MEAN CORPUSCULAR HEMOGLOBIN 32.2 pg (27.0-31.0); MEAN CORPUSCULAR HGB CONC 33.4 g/dL (33.0-37.0); RBC 2.67 Mil/uL (3.80-5.20); RED CELL DISTRIBUTION WIDTH 15.1 % (11.5-14.5); WHITE BLOOD COUNT 5.3 K/uL (4.8-10.8)
[2018-01-22 10:35] LABS: ALB/GLOB RATIO 0.9 (1.0-2.1); ALBUMIN 3.3 g/dL (3.5-5.0); ALT/SGPT 46 U/L (9-52); AST/SGOT 50 U/L (14-36); BLOOD UREA NITROGEN 18 mg/dl (7-17); CALCIUM 8.8 mg/dL (8.4-10.2); GFR AFRICAN-AMERICAN > 60; GFR NON-AFRICAN AMERICAN > 60
--- NOTE | 2018-01-22 11:10 | CARD ---
APPROVED REPORT EKG Measurement Heart [id number] <Conclusion> Sinus rhythm with one premature atrial complex Otherwise normal ECG
[2018-01-22] MEDS ORDERED: Sodium Chloride 0.9% 500 ML IV ONE (11:45)
[2018-01-22] MEDS ORDERED: Vancomycin 1 g Inj IVPB ONE (12:00)
[2018-01-22] MEDS ORDERED: Rocuronium 10 mg/ml (5 ml) ONE (12:03)
[2018-01-22] MEDS ORDERED: Desflurane Inhalation Anesthetic Liq (240 ml) ONE (13:17)
[2018-01-22] MEDS ORDERED: Neostigmine 1:1000 (1 mg/ml) Inj ONE (13:39)
[2018-01-22] MEDS ORDERED: Morphine 4 MG/ML VIAL IVP PRN (13:54)
[2018-01-22] MEDS ORDERED: Lactated Ringer's 1,000 ML IV ONE (14:00)
[2018-01-22] MEDS ORDERED: Sodium Chloride 0.9% 1,000 ML IV SCH (14:00)
[2018-01-22] MEDS ORDERED: Multivitamin (MVI) 10 ML, Trace Elements-Cr/Cu/Mn/Zn 3 ML in Amino/Dex E 4.25/25 1000ml... IV ONE (14:00)
--- NOTE | 2018-01-22 14:00 | PCM.SURG1 ---
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
--- NOTE | 2018-01-22 15:00 | CP.PCM.PN ---
Subjective - Date & Time of Evaluation Date of Evaluation: 01/22/18 Time of Evaluation: 15:00 - Subjective Subjective: Pt seen in PACU immediately post op (repair of Enterocutaneous Fistula) Family by bedside Pt is awake , follows commands NGT in place Objective - Vital Signs/Intake and Output Vital Signs (last 24 hours): Temp Pulse Resp BP Pulse Ox 98 F 97 H 18 155/78 H 99 01/22/18 14:05 01/22/18 14:05 01/22/18 14:05 01/22/18 14:05 01/22/18 14:05 Intake and Output: 01/22/18 01/22/18 06:59 18:59 Intake Total 500 Balance 500 - Medications Medications: Current Medications Enoxaparin Sodium (Lovenox) 30 mg SC DAILY ALFREDO PRN Reason: Protocol Last Admin: 01/21/18 08:41 Dose: 30 mg Famotidine (Pepcid) 20 mg IVP Q12 [facility] Vancomycin HCl 750 mg/ Sodium (Chloride) 250 mls @ 166.667 mls/hr IVPB DAILY ALFREDO PRN Reason: Protocol Last Admin: 01/22/18 08:56 Dose: 166.667 mls/hr Meropenem 1 gm/ Sodium (Chloride) 100 mls @ 100 mls/hr IVPB Q12 [facility] PRN Reason: Protocol Last Admin: 01/22/18 08:38 Dose: 100 mls/hr Multivitamins/Vitamin C 10 ml/Chromium/Copper/Manganese/Zinc 3 ml/ Amino Acids/ Electrolytes/Dextrose 1,013 mls @ 38 mls/hr IV .Q24H ONE Stop: 01/23/18 13:59 Sodium Chloride (Sodium Chloride 0.9%) 1,000 mls @ 75 mls/hr IV .[id number] ALFREDO Lactated Ringer's (Lactated Ringer's) 1,000 mls @ 125 mls/hr IV .Q8H [facility] Latanoprost (Xalatan Opht) 1 drop OU HS [facility] Last Admin: 01/21/18 21:13 Dose: 1 drop Metoprolol Tartrate (Lopressor) 5 mg IVP Q12 [facility] Last Admin: 01/22/18 08:31 Dose: 5 mg Morphine Sulfate (Morphine) 4 mg IVP Q4 PRN PRN Reason: Pain, severe (8-10) Morphine Sulfate (Morphine) 1 mg IVP Q15M PRN PRN Reason: Pain, moderate (4-7) Stop: 01/22/18 16:08 Last Admin: 01/22/18 14:38 Dose: 1 mg Ondansetron HCl (Zofran Inj) 4 mg IVP Q6 PRN PRN Reason: Nausea/Vomiting - Labs Labs: 01/22/18 10:04 01/22/18 10:04 PT 11.7 Seconds (9.8-13.1) 01/20/18 06:25 INR 1.1 (0.9-1.2) 01/20/18 06:25 APTT 26.4 Seconds (25.6-37.1) 01/08/18 12:40 - Constitutional Appears: No Acute Distress - Head Exam Head Exam: NORMAL INSPECTION, NORMOCEPHALIC - Eye Exam Eye Exam: EOMI, Normal appearance Pupil Exam: NORMAL ACCOMODATION - ENT Exam ENT Exam: Mucous Membranes Dry, Normal External Ear Exam NGT in place - Neck Exam Neck Exam: Full ROM. absent: Meningismus - Respiratory Exam Respiratory Exam: NORMAL BREATHING PATTERN. absent: Respiratory Distress - Cardiovascular Exam Cardiovascular Exam: REGULAR RHYTHM, +S1, +S2 - GI/Abdominal Exam GI & Abdominal Exam: Surgical dressing intact - Extremities Exam Extremities Exam: Full ROM, Normal Capillary Refill. absent: Calf Tenderness - Neurological Exam Neurological Exam: Awake, nods head to say yes - Psychiatric Exam Psychiatric exam: Normal Affect, Normal Mood - Skin Skin Exam: Dry, Normal Color, Warm Assessment and Plan - Assessment and Plan (Free Text) Assessment: 87 yo female with a past medical history of arthritis and hypertension was recently admitted to [facility] on 11/25/2017 for Cholecystitis, underwent Lap tyesha and developed iatrogenic enterotomy. At home her surgical wound started draining some mucoid greenish material and she was advised to come in for evaluation by her surgeon. 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 Patient was admitted , started on IV Zosyn and Flagyl , kept NPO , and managed conservatively with NPO, TPN, and IV antibiotics. Wound cultures were reported as positive for Serratia Liquefaciens and antibiotics changed to Meropenem IV. Patient's drainage resolved and diet was upgraded to regular and she tolerated well and was sent home. 01/08/18 : returns with drainage from fistula again. CT abdomen showed enterocutaneous fistula with a tract better delineated on the current examination, well delineated by oral contrast material including umbilicus or periumbilical abdominal wall deformity. Today 01/22 : Pt had Explor Lap , Repair of EC Fistula and Bowel resection 1. Enterocutaneous Fistula s/p Repair with bowel resection NGT in place Continue TPN via PICC kita On meropenem and Vanco IV Pain mgt wound cx form fistula positive for E. Coli and Enterococcus faecalis 2. Anemia, chronic stable pt refused transfusion received IV venofer for 10 days .Discontinued 01/18 3.UTI - treated Urine c/s positive for E coli and Enterococcus faecalis on meropenem and Vanco 4. HTN BP stable monitor vitals cont Metoprolol 5 mg IV BID while NPO 5. Hyperlipidemia Hold statin for now due to total NPO status 6. Acute Renal Insufficiency probably secondary to volume depletion, resolved 7. DVT prophylaxis Lovenox - in am
[2018-01-22] MEDS: Lactated Ringer's 1,000 ML IV SCH ×2 (21:41→22:15)
[2018-01-22] MEDS: Latanoprost 0.005% Opht SOUTION OU SCH (21:47)
[2018-01-23 05:58] LABS: BASO % 0.1 % (0.0-2.0); HEMOGLOBIN 8.3 g/dL (12.0-16.0); LYMPH # 1.3 K/uL (1.0-4.3); LYMPH % 9.7 % (20.0-40.0); MEAN CELL VOLUME 97.1 fl (81.0-99.0); MEAN CORPUSCULAR HEMOGLOBIN 31.7 pg (27.0-31.0); MEAN CORPUSCULAR HGB CONC 32.6 g/dL (33.0-37.0); MEAN PLATELET VOLUME 8.8 fl (7.2-11.7); MONO # 0.7 K/uL (0.0-0.8); MONO % 5.6 % (0.0-10.0); NEUT % 84.6 % (50.0-75.0); PLATELET COUNT 180 K/uL (130-400); RBC 2.61 Mil/uL (3.80-5.20); RED CELL DISTRIBUTION WIDTH 15.2 % (11.5-14.5)
[2018-01-23 06:28] LABS: ALB/GLOB RATIO 0.8 (1.0-2.1); ALBUMIN 2.7 g/dL (3.5-5.0); ALT/SGPT 124 U/L (9-52); AST/SGOT 120 U/L (14-36); BLOOD UREA NITROGEN 17 mg/dl (7-17); CALCIUM 8.6 mg/dL (8.4-10.2); GFR AFRICAN-AMERICAN > 60; GFR NON-AFRICAN AMERICAN > 60
[2018-01-23] MEDS: Meropenem 1 GM in Sodium Chloride 0.9% 100 ML IVPB SCH ×2 (08:23→20:08)
[2018-01-23] MEDS: Metoprolol 1 mg/ml Inj IVP SCH ×2 (08:24→21:25)
--- NOTE | 2018-01-23 08:58 | CP.PCM.PN ---
<Geovany Sims - Last Filed: 01/23/18 08:56> Subjective - Date & Time of Evaluation Date of Evaluation: 01/23/18 Time of Evaluation: 08:56 - Subjective Subjective: SURGERY NOTE FOR DR. LAWLER 87F seen and examined at bedside. No acute events overnight. Patient states pain is controlled. Denies flatus, denies fevers, chill, nausea or vomiting. NGT - 10cc output. Objective - Vital Signs/Intake and Output Vital Signs (last 24 hours): Temp Pulse Resp BP Pulse Ox 97.9 F 98 H 18 128/68 100 01/23/18 08:13 01/23/18 08:24 01/23/18 08:13 01/23/18 08:24 01/23/18 08:13 Intake and Output: 01/23/18 01/23/18 06:59 18:59 Intake Total 721 Output Total 860 Balance -139 - Medications Medications: Current Medications Enoxaparin Sodium (Lovenox) 30 mg SC DAILY ALFREDO PRN Reason: Protocol Last Admin: 01/21/18 08:41 Dose: 30 mg Famotidine (Pepcid) 20 mg IVP Q12 [facility] Last Admin: 01/23/18 08:23 Dose: 20 mg Vancomycin HCl 750 mg/ Sodium (Chloride) 250 mls @ 166.667 mls/hr IVPB DAILY ALFREDO PRN Reason: Protocol Last Admin: 01/22/18 08:56 Dose: 166.667 mls/hr Meropenem 1 gm/ Sodium (Chloride) 100 mls @ 100 mls/hr IVPB Q12 [facility] PRN Reason: Protocol Last Admin: 01/23/18 08:23 Dose: 100 mls/hr Multivitamins/Vitamin C 10 ml/Chromium/Copper/Manganese/Zinc 3 ml/ Amino Acids/ Electrolytes/Dextrose 1,013 mls @ 38 mls/hr IV .Q24H ONE Stop: 01/23/18 13:59 Last Admin: 01/23/18 02:20 Dose: 38 mls/hr Latanoprost (Xalatan Opht) 1 drop OU HS [facility] Last Admin: 01/22/18 21:47 Dose: 1 drop Metoprolol Tartrate (Lopressor) 5 mg IVP Q12 [facility] Last Admin: 03/22/18 08:24 Dose: 5 mg Morphine Sulfate (Morphine) 4 mg IVP Q4 PRN PRN Reason: Pain, severe (8-10) Ondansetron HCl (Zofran Inj) 4 mg IVP Q6 PRN PRN Reason: Nausea/Vomiting - Labs Labs: 01/23/18 04:22 01/23/18 04:22 PT 11.7 Seconds (9.8-13.1) 01/20/18 06:25 INR 1.1 (0.9-1.2) 01/20/18 06:25 APTT 26.4 Seconds (25.6-37.1) 01/08/18 12:40 - Constitutional Appears: Non-toxic, No Acute Distress - Respiratory Exam Respiratory Exam: Clear to Ausculation Bilateral, NORMAL BREATHING PATTERN - Cardiovascular Exam Cardiovascular Exam: REGULAR RHYTHM, +S1, +S2 - GI/Abdominal Exam GI & Abdominal Exam: Soft, Tenderness (mildy tender). absent: Distended, Firm, Guarding, Rigid, Rebound Additional comments: NGT-10cc Dressing CDI - Neurological Exam Neurological Exam: Alert, Awake - Psychiatric Exam Psychiatric exam: Normal Affect, Normal Mood - Skin Skin Exam: Dry, Intact, Normal Color, Warm Assessment and Plan - Assessment and Plan (Free Text) Assessment: 87F s/p exlap with take down of EC fistula and small bowel resection POD1 Plan: - NPO, TPN - await bowel function - pain control - monitor NGT ouput - monitor UO Futher recs discuss with Dr. elena Sims, PGY2 <Michael Lawler - Last Filed: 01/23/18 09:54> Subjective - Date & Time of Evaluation Time of Evaluation: 09:20 - Subjective Subjective: Patient was seen and examined at the bedside. Agree with resident's note above. Objective - Vital Signs/Intake and Output Vital Signs (last 24 hours): Temp Pulse Resp BP Pulse Ox 97.9 F 98 H 18 128/68 100 01/23/18 08:13 01/23/18 08:24 01/23/18 08:13 01/23/18 08:24 01/23/18 08:13 Intake and Output: 01/23/18 01/23/18 06:59 18:59 Intake Total 721 Output Total 860 Balance -139 - Medications Medications: Current Medications Enoxaparin Sodium (Lovenox) 30 mg SC DAILY ALFREDO PRN Reason: Protocol Last Admin: 01/21/18 08:41 Dose: 30 mg Famotidine (Pepcid) 20 mg IVP Q12 [facility] Last Admin: 01/23/18 08:23 Dose: 20 mg Vancomycin HCl 750 mg/ Sodium (Chloride) 250 mls @ 166.667 mls/hr IVPB DAILY ALFREDO PRN Reason: Protocol Last Admin: 01/22/18 08:56 Dose: 166.667 mls/hr Meropenem 1 gm/ Sodium (Chloride) 100 mls @ 100 mls/hr IVPB Q12 [facility] PRN Reason: Protocol Last Admin: 01/23/18 08:23 Dose: 100 mls/hr Multivitamins/Vitamin C 10 ml/Chromium/Copper/Manganese/Zinc 3 ml/ Amino Acids/ Electrolytes/Dextrose 1,013 mls @ 38 mls/hr IV .Q24H ONE Stop: 01/23/18 13:59 Last Admin: 01/23/18 02:20 Dose: 38 mls/hr Latanoprost (Xalatan Opht) 1 drop OU HS [facility] Last Admin: 01/22/18 21:47 Dose: 1 drop Metoprolol Tartrate (Lopressor) 5 mg IVP Q12 [facility] Last Admin: 01/23/18 08:24 Dose: 5 mg Morphine Sulfate (Morphine) 4 mg IVP Q4 PRN PRN Reason: Pain, severe (8-10) Ondansetron HCl (Zofran Inj) 4 mg IVP Q6 PRN PRN Reason: Nausea/Vomiting - Labs Labs: 01/23/18 04:22 01/23/18 04:22 PT 11.7 Seconds (9.8-13.1) 01/20/18 06:25 INR 1.1 (0.9-1.2) 01/20/18 06:25 APTT 26.4 Seconds (25.6-37.1) 01/08/18 12:40 Assessment and Plan - Assessment and Plan (Free Text) Plan: - Repeat labs in am - Insentive spirometry - IV fluids - DVT ppx - Out of bed to chair - Will follow
[2018-01-23 09:44] LABS: LYMPHOCYTE 5 % (20-50); MONOCYTE 4 % (0-10); NEUTROPHIL 91 % (42-75); TOTAL CELLS COUNTED 100
[2018-01-23 09:45] LABS: ANISOCYTOSIS SLIGHT; PLATELET ESTIMATE NORMAL (NORMAL)
[2018-01-23 09:46] LABS: HYPOCHROMIC MODERATE; OVALOCYTES SLIGHT; SCHISTOCYTES SLIGHT; TOXIC GRANULATION PRESENT
--- NOTE | 2018-01-23 12:40 | CP.PCM.PN ---
Subjective - Date & Time of Evaluation Date of Evaluation: 01/23/18 Time of Evaluation: 12:37 - Subjective Subjective: ID Note- Pt. seen and examined today. pod Day #1 s/p Operation Performed: Exploratory Laparostomy, take down of EC fistula, small bowel resection patietn awake and alert. denies any fever or chills. in good spirits. denies any cough or sob. denies any diarrhea. wishes to ambulate. Objective - Vital Signs/Intake and Output Vital Signs (last 24 hours): Temp Pulse Resp BP Pulse Ox 97.5 F L 89 20 132/72 100 01/23/18 12:27 01/23/18 12:27 01/23/18 12:27 01/23/18 12:27 01/23/18 12:27 Intake and Output: 01/23/18 01/23/18 06:59 18:59 Intake Total 721 Output Total 860 Balance -139 - Medications Medications: Current Medications Enoxaparin Sodium (Lovenox) 30 mg SC DAILY ALFREDO PRN Reason: Protocol Last Admin: 01/21/18 08:41 Dose: 30 mg Famotidine (Pepcid) 20 mg IVP Q12 [facility] Last Admin: 01/23/18 08:23 Dose: 20 mg Vancomycin HCl 750 mg/ Sodium (Chloride) 250 mls @ 166.667 mls/hr IVPB DAILY ALFREDO PRN Reason: Protocol Last Admin: 01/23/18 10:54 Dose: 166.667 mls/hr Meropenem 1 gm/ Sodium (Chloride) 100 mls @ 100 mls/hr IVPB Q12 [facility] PRN Reason: Protocol Last Admin: 01/23/18 08:23 Dose: 100 mls/hr Multivitamins/Vitamin C 10 ml/Chromium/Copper/Manganese/Zinc 3 ml/ Amino Acids/ Electrolytes/Dextrose 1,013 mls @ 38 mls/hr IV .Q24H ONE Stop: 01/23/18 13:59 Last Admin: 01/23/18 02:20 Dose: 38 mls/hr Latanoprost (Xalatan Opht) 1 drop OU HS [facility] Last Admin: 01/22/18 21:47 Dose: 1 drop Metoprolol Tartrate (Lopressor) 5 mg IVP Q12 [facility] Last Admin: 01/23/18 08:24 Dose: 5 mg Morphine Sulfate (Morphine) 4 mg IVP Q4 PRN PRN Reason: Pain, severe (8-10) Ondansetron HCl (Zofran Inj) 4 mg IVP Q6 PRN PRN Reason: Nausea/Vomiting - Labs Labs: - Constitutional Appears: No Acute Distress - Head Exam Head Exam: ATRAUMATIC - Eye Exam Eye Exam: EOMI, PERRL - ENT Exam ENT Exam: Normal Oropharynx - Respiratory Exam Respiratory Exam: Clear to Ausculation Bilateral, NORMAL BREATHING PATTERN - Cardiovascular Exam Cardiovascular Exam: RRR, +S1, +S2 - GI/Abdominal Exam Additional comments: soft midabdomen surgical site with whitley in place, covered with gauze faint bowel sounds heard minimal tenderness around surgical site - Extremities Exam Extremities Exam: Normal Inspection - Neurological Exam Neurological Exam: Alert, Oriented x3 - Additional Findings Additional findings: Laboratory Results - last 72 hr 01/16/18 01/21/18 01/21/18 06:20 06:10 06:10 WBC 5.6 RBC 2.68 L Hgb 8.7 L Hct 25.8 L MCV 96.3 MCH 32.4 H MCHC 33.6 RDW 14.9 H Plt Count 182 MPV Neut % (Auto) Lymph % (Auto) Bond % (Auto) Eos % (Auto) Baso % (Auto) Neut # (Auto) Lymph # (Auto) Bond # (Auto) Eos # (Auto) Baso # (Auto) Neutrophils % (Manual) Lymphocytes % (Manual) Monocytes % (Manual) Toxic Granulation Platelet Estimate Hypochromasia (manual) Anisocytosis (manual) Macrocytosis (manual) Ovalocytes Schistocytes Sodium 142 Potassium 3.9 Chloride 103 Carbon Dioxide 32 H Anion Gap 11 BUN 19 H Creatinine 0.8 Est GFR ( Amer) > 60 Est GFR (Non-Af Amer) > 60 Random Glucose 116 H Calcium 8.9 Phosphorus 1.9 L Magnesium 2.0 Total Bilirubin AST ALT Alkaline Phosphatase Total Protein Albumin Globulin Albumin/Globulin Ratio Phospholipids 183 Blood Type Antibody Screen Crossmatch BBK History Checked 01/21/18 01/22/18 01/22/18 16:05 10:04 10:04 WBC 5.3 RBC 2.67 L Hgb 8.6 L Hct 25.8 L MCV 96.4 MCH 32.2 H MCHC 33.4 RDW 15.1 H Plt Count 184 MPV Neut % (Auto) Lymph % (Auto) Bond % (Auto) Eos % (Auto) Baso % (Auto) Neut # (Auto) Lymph # (Auto) Bond # (Auto) Eos # (Auto) Baso # (Auto) Neutrophils % (Manual) Lymphocytes % (Manual) Monocytes % (Manual) Toxic Granulation Platelet Estimate Hypochromasia (manual) Anisocytosis (manual) Macrocytosis (manual) Ovalocytes Schistocytes Sodium 139 Potassium 4.0 Chloride 101 Carbon Dioxide 28 Anion Gap 14 BUN 18 H Creatinine 0.8 Est GFR ( Amer) > 60 Est GFR (Non-Af Amer) > 60 Random Glucose 128 H Calcium 8.8 Phosphorus 2.5 Magnesium 1.9 Total Bilirubin 0.3 AST 50 H D ALT 46 Alkaline Phosphatase 108 Total Protein 7.1 Albumin 3.3 L D Globulin 3.8 Albumin/Globulin Ratio 0.9 L Phospholipids Blood Type O POSITIVE Antibody Screen Negative Crossmatch See Detail BBK History Checked Patient has bt 01/23/18 01/23/18 04:22 04:22 WBC 13.0 H D RBC 2.61 L Hgb 8.3 L Hct 25.3 L MCV 97.1 MCH 31.7 H MCHC 32.6 L RDW 15.2 H Plt Count 180 MPV 8.8 Neut % (Auto) 84.6 H Lymph % (Auto) 9.7 L Bond % (Auto) 5.6 Eos % (Auto) 0.0 Baso % (Auto) 0.1 Neut # (Auto) 11.0 H Lymph # (Auto) 1.3 Bond # (Auto) 0.7 Eos # (Auto) 0.0 Baso # (Auto) 0.0 Neutrophils % (Manual) 91 H Lymphocytes % (Manual) 5 L Monocytes % (Manual) 4 Toxic Granulation Present Platelet Estimate Normal Hypochromasia (manual) Moderate Anisocytosis (manual) Slight Macrocytosis (manual) Slight Ovalocytes Slight Schistocytes Slight Sodium 141 Potassium 4.5 Chloride 103 Carbon Dioxide 29 Anion Gap 14 BUN 17 Creatinine 0.8 Est GFR ( Amer) > 60 Est GFR (Non-Af Amer) > 60 Random Glucose 172 H Calcium 8.6 Phosphorus Magnesium Total Bilirubin 0.3 AST 120 H D ALT 124 H D Alkaline Phosphatase 129 H Total Protein 6.2 L Albumin 2.7 L Globulin 3.4 Albumin/Globulin Ratio 0.8 L Phospholipids Blood Type Antibody Screen Crossmatch BBK History Checked Microbiology 01/08/18 13:00 Blood-Venous Blood Culture - Final NO GROWTH AFTER 5 DAYS 01/08/18 12:30 Blood-Venous Blood Culture - Final NO GROWTH AFTER 5 DAYS 01/08/18 14:27 Urine,Clean Catch Urine Culture - Final Escherichia Coli Enterococcus Faecalis 01/08/18 13:27 Abdomen Gram Stain - Final 01/08/18 13:27 Abdomen Wound Culture - Final Escherichia Coli Enterococcus Faecalis Assessment and Plan (1) Enterocutaneous fistula Status: Acute (2) S/P laparoscopic cholecystectomy Status: Acute - Assessment and Plan (Free Text) Assessment: A/P- 87 year old female s/p recent lap tyesha with subsequent enterocutaneous fistula formation with serratia growth from the wound cx from last admission last month and completed 10 days of IV antibiotics and wound opening had closed, who now presents to ED with opening again at site of the fistula in midabdomen with yellow -green discharge. pod #1 s/p Exploratory Laparostomy, take down of EC fistula, small bowel resection afebrile minimal leukocytosis today + UA urine cx - e.coli not esbl, e.fecalis Wound cx - e.coli and e.fecalis blood cx- neg x 2 repeat UA- Negative lfts are elevated today, perhaps post surgical response plan- advise to repeat LFTs in am. continue with empiric meropnem since pt. had enterocutaneous fistula which was repaired yesterday , day #12. continue with IV vanconycin for now, day #10 for e.fecalis from the wound and urine cx. keep vanco trough <15. monitor wbc in am and may be able to d/c IV antibiotics in couple of days once pt. cleared by surgery to eat and off TPN . encouraged use of the incentive spirometry. All above d/w patient and her family who is at her bedside at length and they verbalize full understanding of all above.
[2018-01-23] MEDS ORDERED: Multivitamin (MVI) 10 ML, Trace Elements-Cr/Cu/Mn/Zn 3 ML in Amino/Dex E 4.25/25 1000ml... IV ONE (14:10)
--- NOTE | 2018-01-23 14:28 | CP.PCM.PN ---
Subjective - Date & Time of Evaluation Date of Evaluation: 01/23/18 Time of Evaluation: 12:00 - Subjective Subjective: Pt is awake, alert, afebrile post op pain controlled denies CP no SOB bother by her NGT and [place] cath Daughter at bedside - translatd for pt ( pt is Telugu) Objective - Vital Signs/Intake and Output Vital Signs (last 24 hours): Temp Pulse Resp BP Pulse Ox 97.5 F L 89 20 132/72 100 01/23/18 12:27 01/23/18 12:27 01/23/18 12:27 01/23/18 12:27 01/23/18 12:27 Intake and Output: 01/23/18 01/23/18 06:59 18:59 Intake Total 721 Output Total 860 Balance -139 - Medications Medications: Current Medications Enoxaparin Sodium (Lovenox) 30 mg SC DAILY ALFREDO PRN Reason: Protocol Last Admin: 01/21/18 08:41 Dose: 30 mg Famotidine (Pepcid) 20 mg IVP Q12 [facility] Last Admin: 01/23/18 08:23 Dose: 20 mg Vancomycin HCl 750 mg/ Sodium (Chloride) 250 mls @ 166.667 mls/hr IVPB DAILY ALFREDO PRN Reason: Protocol Last Admin: 01/23/18 10:54 Dose: 166.667 mls/hr Meropenem 1 gm/ Sodium (Chloride) 100 mls @ 100 mls/hr IVPB Q12 [facility] PRN Reason: Protocol Last Admin: 01/23/18 08:23 Dose: 100 mls/hr Multivitamins/Vitamin C 10 ml/Chromium/Copper/Manganese/Zinc 3 ml/ Amino Acids/ Electrolytes/Dextrose 1,013 mls @ 38 mls/hr IV .Q24H ONE Stop: 01/24/18 14:09 Latanoprost (Xalatan Opht) 1 drop OU HS [facility] Last Admin: 01/22/18 21:47 Dose: 1 drop Metoprolol Tartrate (Lopressor) 5 mg IVP Q12 [facility] Last Admin: 01/23/18 08:24 Dose: 5 mg Morphine Sulfate (Morphine) 4 mg IVP Q4 PRN PRN Reason: Pain, severe (8-10) Ondansetron HCl (Zofran Inj) 4 mg IVP Q6 PRN PRN Reason: Nausea/Vomiting - Labs Labs: 01/23/18 04:22 01/23/18 04:22 PT 11.7 Seconds (9.8-13.1) 01/20/18 06:25 INR 1.1 (0.9-1.2) 01/20/18 06:25 APTT 26.4 Seconds (25.6-37.1) 01/08/18 12:40 - Constitutional Appears: No Acute Distress - Head Exam Head Exam: NORMAL INSPECTION, NORMOCEPHALIC - Eye Exam Eye Exam: EOMI, Normal appearance Pupil Exam: NORMAL ACCOMODATION - ENT Exam ENT Exam: Mucous Membranes Dry, Normal External Ear Exam NGT in place - Neck Exam Neck Exam: Full ROM. absent: Meningismus - Respiratory Exam Respiratory Exam: NORMAL BREATHING PATTERN. absent: Respiratory Distress - Cardiovascular Exam Cardiovascular Exam: REGULAR RHYTHM, +S1, +S2 - GI/Abdominal Exam GI & Abdominal Exam: Surgical dressing intact soft, + tenderness, hypoactive BS - Extremities Exam Extremities Exam: Full ROM, Normal Capillary Refill. absent: Calf Tenderness - Neurological Exam Neurological Exam: Awake, alert, oriented - Psychiatric Exam Psychiatric exam: Normal Affect, Normal Mood - Skin Skin Exam: Dry, Normal Color, Warm Assessment and Plan - Assessment and Plan (Free Text) Assessment: 87 yo female with a past medical history of arthritis and hypertension was recently admitted to [facility] on 11/25/2017 for Cholecystitis, underwent Lap tyesha and developed iatrogenic enterotomy. At home her surgical wound started draining some mucoid greenish material and she was advised to come in for evaluation by her surgeon. 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 Patient was admitted , started on IV Zosyn and Flagyl , kept NPO , and managed conservatively with NPO, TPN, and IV antibiotics. Wound cultures were reported as positive for Serratia Liquefaciens and antibiotics changed to Meropenem IV. Patient's drainage resolved and diet was upgraded to regular and she tolerated well and was sent home. 01/08/18 : returns with drainage from fistula again. CT abdomen showed enterocutaneous fistula with a tract better delineated on the current examination, well delineated by oral contrast material including umbilicus or periumbilical abdominal wall deformity. 01/22 : Pt had Explor Lap , Repair of EC Fistula and Bowel resection 1. Enterocutaneous Fistula s/p Repair with bowel resection NGT in place pt still NPO Continue TPN via PICC line cont Meropenem and Vanco IV Pain mgt wound cx form fistula positive for E. Coli and Enterococcus faecalis ID following pt 2. Anemia, chronic stable pt refused transfusion received IV venofer for 10 days H/H stable post op 3.UTI - treated Urine c/s positive for E coli and Enterococcus faecalis on meropenem and Vanco 4. HTN BP stable monitor vitals cont Metoprolol 5 mg IV BID while NPO 5. Hyperlipidemia Hold statin for now due to total NPO status 6. Acute Renal Insufficiency probably secondary to volume depletion, resolved 7. Abn LFT ? etiology will rpt LFTs in am DVT prophylaxis restart Lovenox
[2018-01-23] MEDS: Enoxaparin 30 mg Syringe SC SCH (17:44)
[2018-01-23] MEDS: Latanoprost 0.005% Opht SOUTION OU SCH (21:24)
--- NOTE | 2018-01-24 00:31 | OP ---
PROCEDURE DATE: PREOPERATIVE DIAGNOSIS: Enterocutaneous fistula. POSTOPERATIVE DIAGNOSIS: Enterocutaneous fistula. PROCEDURE: Exploratory laparotomy, take down of the enterocutaneous fistula, extensive lysis of adhesions, and small bowel resection. SURGEON: Michael Lawler MD DRESSER TENDER: Joe Pineda MD TYPE OF ANESTHESIA: General with endotracheal intubation. IV FLUID INTAKE: Crystalloids. ESTIMATED BLOOD LOSS: 100 mL. INTRAOPERATIVE FINDINGS: Enterocutaneous fistula. SPECIMEN: Small bowel. BRIEF HISTORY: Mrs. Pierce is an 87-year-old female who approximately a month ago underwent laparoscopic cholecystectomy and subsequent to the surgery few weeks later, the patient developed enterocutaneous fistula that was initially treated with conserve management with TPN, NPO, IV fluids, and antibiotics; however, the fistula failed to close, and the patient was taken to the operating room for above-stated procedure. All the risks and benefits of the procedure were explained to the patient and the patient's family and with the patient having a full understanding of all the risks and benefits involved, informed consent was obtained and the patient was taken to the operating room for above-stated procedure. DESCRIPTION OF PROCEDURE: The patient was brought into the operating room and placed supine on the operating room table. Bilateral Flowtron boots were applied to the patient's lower extremities. After successful induction of anesthesia and successful endotracheal intubation by the anesthesia team, the patient's abdomen was prepped with Betadine and draped in the standard surgical fashion. Prior to the beginning of the procedure, time-out was called in the room and everyone in the room were in agreement. Using 10-blade scalpel knife, approximately 15 cm incision was made in the mid-abdomen and extended longitudinally and subsequent to that, dissection was carried down with electrocautery until the fascial layer was encountered. Facia was transected with electrocautery and 2 Jennifer clamps were placed on both ends of the fascia. At this point in time, peritoneal layer was encountered and was transected. At this point in time, the patient's abdominal cavity was entered. There appeared to be a track of the enterocutaneous fistula subcutaneously. The bowel was stuck to the anterior abdominal wall that was dissected out bluntly with finger dissection. Once this was accomplished and the bowel was freed up from the anterior abdominal wall, attention was turned to the areas of enterocutaneous fistulas. However, there appeared to be extensive intra-abdominal adhesions that were taken down bluntly with finger dissection as well as sharply with Metzenbaum scissor and electrical cautery. We spent approximately an hour lysing the adhesions. Once the small bowel was all freed up from the adhesions, the areas of concern of a small bowel was resected, two small defects were made in the mesentery distal and proximal, and subsequent to that Jennifer clamps was placed through the bowel mesentery and 75 mm blue load JERARDO stapler was fired across the proximal and subsequently 75 mm blue load was fired across the distal end of the bowel that was supposed to be resected. At this point in time, the mesentery was taken with the impact LigaSure and once the specimen was completely freed up, it was passed off to the [facility] as a specimen. At this point in time, we made a decision to perform small bowel anastomosis in a side to side fashion, small bowel anastomosis two ends proximal and distal ends of the transected bowel were placed together and several interrupted 3-0 silk sutures were placed in order to hold the bowel in the [id number] fashion. Once this was accomplished using electrocautery, two enterotomy were made in the bowel and subsequent to that, two Allis clamps were placed inside of the bowel lumen. At this point in time, 75 mm blue load JERARDO stapler was inserted into both ends of the bowel lumen and the stapler was fired. Anastomotic connection appeared to be satisfactory and the defect was closed with blue load on a 60-mm TA stapler. Once this was accomplished, staple line was reinforced with 3-0 chromic suture. At this point in time, the anastomosis appeared to have no tension whatsoever and appeared to be satisfactory. The bowel was reduced back into abdominal cavity, and subsequent to that, omentum was pulled down to cover the anastomosis. At this point in time, our attention was turned to the anterior abdominal wall. The area of the enterocutaneous fistula was opened up with electrocautery and the area was cauterized to create scar tissue. At this point in time, the abdomen was closed with #1 loop PDS, one from above and one from below and tied in the middle. At this point in time, once the fascia layer was closed, the wound was irrigated and dried and skin was closed with whitley. At the end of the procedure, the patient's abdomen was washed and dried and a clean dressings with 4 x 4's, ABD, and some tape were applied to the site of the incision. The patient was successfully extubated by the anesthesia team, transferred to the stretcher, and taken to the recovery room in a stable condition. At the end of the procedure; all instrument counts, needles, and sponges were correct. Michael Lawler MD [facility]
[2018-01-24 06:19] LABS: BASO % 0.3 % (0.0-2.0); EOS % 0.3 % (0.0-4.0); HEMOGLOBIN 8.1 g/dL (12.0-16.0); LYMPH # 1.2 K/uL (1.0-4.3); LYMPH % 15.4 % (20.0-40.0); MEAN CORPUSCULAR HEMOGLOBIN 32.5 pg (27.0-31.0); MEAN CORPUSCULAR HGB CONC 33.5 g/dL (33.0-37.0); MEAN PLATELET VOLUME 8.9 fl (7.2-11.7); MONO # 0.9 K/uL (0.0-0.8); MONO % 12.2 % (0.0-10.0); NEUT # 5.4 K/uL (1.8-7.0); NEUT % 71.8 % (50.0-75.0); NRBC % 0.1 % (0.0-0.0); RBC 2.51 Mil/uL (3.80-5.20); RED CELL DISTRIBUTION WIDTH 15.2 % (11.5-14.5); WHITE BLOOD COUNT 7.6 K/uL (4.8-10.8)
[2018-01-24 07:18] LABS: ALB/GLOB RATIO 0.7 (1.0-2.1); ALBUMIN 2.6 g/dL (3.5-5.0); ALT/SGPT 81 U/L (9-52); AST/SGOT 54 U/L (14-36); BILIRUBIN,DIRECT 0.3 mg/ml (0.0-0.4); BLOOD UREA NITROGEN 19 mg/dl (7-17); CALCIUM 8.8 mg/dL (8.4-10.2); GFR AFRICAN-AMERICAN > 60; GFR NON-AFRICAN AMERICAN > 60
[2018-01-24] MEDS ORDERED: Phenol 1.4% Throat Spray MT PRN (08:06)
[2018-01-24] MEDS ORDERED: Potassium Phosphate 30 MMOLE in Sodium Chloride 0.9% 250 ML IV ONE (08:07)
--- NOTE | 2018-01-24 08:10 | CP.PCM.PN ---
<Gardenia Lindsey - Last Filed: 01/24/18 08:08> Subjective - Date & Time of Evaluation Date of Evaluation: 01/24/18 Time of Evaluation: 08:08 - Subjective Subjective: General Surgery - Dr. Lawler Pt S&E. DAISHA. Pt complains of mild abdominal pain post-op but mostly complaining of throat pain from NGT. Explained to pt. that tube will remain in place for a few more days. She denies any flatus or BM. She has been OOB to chair. No Nausea/Vomiting/Fevers/Chills/SOB. Objective - Vital Signs/Intake and Output Vital Signs (last 24 hours): Temp Pulse Resp BP Pulse Ox 99 F 96 H 20 154/82 H 100 01/24/18 08:02 01/24/18 08:02 01/24/18 08:02 01/24/18 08:02 01/24/18 08:02 Intake and Output: 01/24/18 01/24/18 06:59 18:59 Intake Total 556 Output Total 800 Balance -244 - Medications Medications: Current Medications Enoxaparin Sodium (Lovenox) 30 mg SC DAILY [facility] PRN Reason: Protocol Last Admin: 01/23/18 17:44 Dose: 30 mg Famotidine (Pepcid) 20 mg IVP Q12 [facility] Last Admin: 01/23/18 21:25 Dose: 20 mg Vancomycin HCl 750 mg/ Sodium (Chloride) 250 mls @ 166.667 mls/hr IVPB DAILY [facility] PRN Reason: Protocol Last Admin: 01/23/18 10:54 Dose: 166.667 mls/hr Meropenem 1 gm/ Sodium (Chloride) 100 mls @ 100 mls/hr IVPB Q12 [facility] PRN Reason: Protocol Last Admin: 01/23/18 20:08 Dose: 100 mls/hr Multivitamins/Vitamin C 10 ml/Chromium/Copper/Manganese/Zinc 3 ml/ Amino Acids/ Electrolytes/Dextrose 1,013 mls @ 38 mls/hr IV .Q24H ONE Stop: 01/24/18 14:09 Last Admin: 01/23/18 15:00 Dose: 38 mls/hr Potassium Phosphate 30 mmole/ (Sodium Chloride) 260 mls @ 65 mls/hr IV ONCE ONE Stop: 01/24/18 12:06 Latanoprost (Xalatan Opht) 1 drop OU HS [facility] Last Admin: 01/23/18 21:24 Dose: 1 drop Metoprolol Tartrate (Lopressor) 5 mg IVP Q12 [facility] Last Admin: 01/23/18 21:25 Dose: 5 mg Morphine Sulfate (Morphine) 4 mg IVP Q4 PRN PRN Reason: Pain, severe (8-10) Ondansetron HCl (Zofran Inj) 4 mg IVP Q6 PRN PRN Reason: Nausea/Vomiting Phenol/Menthol (Phenaseptic 1.4% Throat [place]) 1 spry MT Q2 PRN PRN Reason: Sore Throat - Labs Labs: 01/24/18 05:30 01/24/18 05:30 PT 11.7 Seconds (9.8-13.1) 01/20/18 06:25 INR 1.1 (0.9-1.2) 01/20/18 06:25 APTT 26.4 Seconds (25.6-37.1) 01/08/18 12:40 - Constitutional Appears: No Acute Distress - Head Exam Head Exam: ATRAUMATIC, NORMAL INSPECTION, NORMOCEPHALIC - Eye Exam Eye Exam: Normal appearance - Respiratory Exam Respiratory Exam: NORMAL BREATHING PATTERN. absent: Respiratory Distress - GI/Abdominal Exam GI & Abdominal Exam: Soft, Tenderness (appropriate incisional tenderness). absent: Distended, Guarding, Rebound Additional comments: dressing changed, c/d/I - Neurological Exam Neurological Exam: Alert, Oriented x3 - Psychiatric Exam Psychiatric exam: Normal Affect, Normal Mood - Skin Skin Exam: Dry, Intact Assessment and Plan - Assessment and Plan (Free Text) Assessment: 87F s/p exlap with take down of EC fistula and small bowel resection POD2 Plan: - Continue NPO, TPN - NGT to LCS (200cc clear/yellow gastric output/24hrs) - Monitor for bowel function - Pain control and throat spray prn - OOB to chair, Encourage ambulation Dw Dr. Lawler <Michael Lawler - Last Filed: 01/24/18 09:03> Subjective - Date & Time of Evaluation Time of Evaluation: 08:30 - Subjective Subjective: Patient was seen and examined at the bedside. Agree with resident's note above. Objective - Vital Signs/Intake and Output Vital Signs (last 24 hours): Temp Pulse Resp BP Pulse Ox 99 F 96 H 20 154/82 H 100 01/24/18 08:02 01/24/18 08:02 01/24/18 08:02 01/24/18 08:02 01/24/18 08:02 Intake and Output: 01/24/18 01/24/18 06:59 18:59 Intake Total 556 Output Total 800 Balance -244 - Medications Medications: Current Medications Enoxaparin Sodium (Lovenox) 30 mg SC DAILY [facility] PRN Reason: Protocol Last Admin: 01/23/18 17:44 Dose: 30 mg Famotidine (Pepcid) 20 mg IVP Q12 [facility] Last Admin: 01/23/18 21:25 Dose: 20 mg Vancomycin HCl 750 mg/ Sodium (Chloride) 250 mls @ 166.667 mls/hr IVPB DAILY [facility] PRN Reason: Protocol Last Admin: 01/23/18 10:54 Dose: 166.667 mls/hr Meropenem 1 gm/ Sodium (Chloride) 100 mls @ 100 mls/hr IVPB Q12 [facility] PRN Reason: Protocol Last Admin: 01/23/18 20:08 Dose: 100 mls/hr Multivitamins/Vitamin C 10 ml/Chromium/Copper/Manganese/Zinc 3 ml/ Amino Acids/ Electrolytes/Dextrose 1,013 mls @ 38 mls/hr IV .Q24H ONE Stop: 01/24/18 14:09 Last Admin: 01/23/18 15:00 Dose: 38 mls/hr Potassium Phosphate 30 mmole/ (Sodium Chloride) 260 mls @ 65 mls/hr IV ONCE ONE Stop: 01/24/18 12:06 Sodium Chloride (Sodium Chloride 0.9%) 1,000 mls @ 75 mls/hr IV .[id number] [facility] Latanoprost (Xalatan Opht) 1 drop OU HS [facility] Last Admin: 01/23/18 21:24 Dose: 1 drop Metoprolol Tartrate (Lopressor) 5 mg IVP Q12 [facility] Last Admin: 01/23/18 21:25 Dose: 5 mg Morphine Sulfate (Morphine) 4 mg IVP Q4 PRN PRN Reason: Pain, severe (8-10) Ondansetron HCl (Zofran Inj) 4 mg IVP Q6 PRN PRN Reason: Nausea/Vomiting Phenol/Menthol (Phenaseptic 1.4% Throat [place]) 1 spry MT Q2 PRN PRN Reason: Sore Throat - Labs Labs: 01/24/18 05:30 01/24/18 05:30 PT 11.7 Seconds (9.8-13.1) 01/20/18 06:25 INR 1.1 (0.9-1.2) 01/20/18 06:25 APTT 26.4 Seconds (25.6-37.1) 01/08/18 12:40
--- NOTE | 2018-01-24 08:23 | CP.PCM.PN ---
Subjective - Date & Time of Evaluation Date of Evaluation: 01/24/18 Time of Evaluation: 08:23 - Subjective Subjective: states NGT uncomfortable this morning, however explained she will require a couple more days per surgery HD stable nad no other complaints at this time. Objective - Vital Signs/Intake and Output Vital Signs (last 24 hours): Temp Pulse Resp BP Pulse Ox 99 F 96 H 20 154/82 H 100 01/24/18 08:02 01/24/18 08:02 01/24/18 08:02 01/24/18 08:02 01/24/18 08:02 GENERAL APPEARANCE: Well developed, well nourished, alert and cooperative, and appears to be in no acute distress. HEENT: NGT in place. normocephalic, atraumatic PERRL, EOMI. Vision is grossly intact. External auditory canals clear, hearing grossly intact. No nasal discharge. NECK: Neck supple, non-tender without lymphadenopathy, masses or thyromegaly. CARDIAC: Normal S1 and S2. No S3, S4 or murmurs. Rhythm is regular. LUNGS: Clear to auscultation and percussion without rales, rhonchi, wheezing or diminished breath sounds. ABDOMEN: Positive bowel sounds. Soft, nondistended, nontender. No guarding or rebound. No masses. BACK: Examination of the spine reveals no spinal deformity, symmetry of spinal muscles, EXTREMITIES: No significant deformity or joint abnormality. No edema. NEUROLOGICAL: Strength and sensation symmetric and intact throughout. Reflexes 2 + throughout. SKIN: Skin normal color, texture and turgor with no lesions or eruptions. PSYCHIATRIC: The patient was oriented to person, place, and time. Normal affect. Intake and Output: 01/24/18 01/24/18 06:59 18:59 Intake Total 556 Output Total 800 Balance -244 - Medications Medications: Current Medications Enoxaparin Sodium (Lovenox) 30 mg SC DAILY [facility] PRN Reason: Protocol Last Admin: 01/23/18 17:44 Dose: 30 mg Famotidine (Pepcid) 20 mg IVP Q12 [facility] Last Admin: 01/23/18 21:25 Dose: 20 mg Vancomycin HCl 750 mg/ Sodium (Chloride) 250 mls @ 166.667 mls/hr IVPB DAILY [facility] PRN Reason: Protocol Last Admin: 01/23/18 10:54 Dose: 166.667 mls/hr Meropenem 1 gm/ Sodium (Chloride) 100 mls @ 100 mls/hr IVPB Q12 [facility] PRN Reason: Protocol Last Admin: 01/23/18 20:08 Dose: 100 mls/hr Multivitamins/Vitamin C 10 ml/Chromium/Copper/Manganese/Zinc 3 ml/ Amino Acids/ Electrolytes/Dextrose 1,013 mls @ 38 mls/hr IV .Q24H ONE Stop: 01/24/18 14:09 Last Admin: 01/23/18 15:00 Dose: 38 mls/hr Potassium Phosphate 30 mmole/ (Sodium Chloride) 260 mls @ 65 mls/hr IV ONCE ONE Stop: 01/24/18 12:06 Sodium Chloride (Sodium Chloride 0.9%) 1,000 mls @ 75 mls/hr IV .[id number] [facility] Latanoprost (Xalatan Opht) 1 drop OU HS [facility] Last Admin: 01/23/18 21:24 Dose: 1 drop Metoprolol Tartrate (Lopressor) 5 mg IVP Q12 [facility] Last Admin: 01/23/18 21:25 Dose: 5 mg Morphine Sulfate (Morphine) 4 mg IVP Q4 PRN PRN Reason: Pain, severe (8-10) Ondansetron HCl (Zofran Inj) 4 mg IVP Q6 PRN PRN Reason: Nausea/Vomiting Phenol/Menthol (Phenaseptic 1.4% Throat [place]) 1 spry MT Q2 PRN PRN Reason: Sore Throat - Labs Labs: 01/24/18 05:30 01/24/18 05:30 PT 11.7 Seconds (9.8-13.1) 01/20/18 06:25 INR 1.1 (0.9-1.2) 01/20/18 06:25 APTT 26.4 Seconds (25.6-37.1) 01/08/18 12:40 Assessment and Plan - Assessment and Plan (Free Text) Plan: 87 yo female with a past medical history of arthritis and hypertension was recently admitted to [facility] on 11/25/2017 for Cholecystitis, underwent Lap tyesha and developed iatrogenic enterotomy. At home her surgical wound started draining some mucoid greenish material and she was advised to come in for evaluation by her surgeon. 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 Patient was admitted , started on IV Zosyn and Flagyl , kept NPO , and managed conservatively with NPO, TPN, and IV antibiotics. Wound cultures were reported as positive for Serratia Liquefaciens and antibiotics changed to Meropenem IV. Patient's drainage resolved and diet was upgraded to regular and she tolerated well and was sent home. 01/08/18 : returns with drainage from fistula again. CT abdomen showed enterocutaneous fistula with a tract better delineated on the current examination, well delineated by oral contrast material including umbilicus or periumbilical abdominal wall deformity. 01/22: s/p ExLap, Repair of EC Fistula and Bowel resection 1. Enterocutaneous Fistula s/p Repair with bowel resection NGT in place pt still NPO Continue TPN via PICC line cont Meropenem and Vanco IV Pain mgt wound cx form fistula positive for E. Coli and Enterococcus faecalis ID following pt 2. Anemia, chronic stable pt refused transfusion received IV venofer for 10 days H/H stable post op 3.UTI - treated Urine c/s positive for E coli and Enterococcus faecalis on Meropenem and Vanco 4. HTN BP stable monitor vitals cont Metoprolol 5 mg IV BID while NPO 5. Hyperlipidemia Hold statin for now due to total NPO status 6. Acute Renal Insufficiency probably secondary to volume depletion, resolved 7. Abn LFT ? etiology will rpt LFTs in am DVT prophylaxis restart Lovenox
[2018-01-24] MEDS: Meropenem 1 GM in Sodium Chloride 0.9% 100 ML IVPB SCH ×2 (09:00→21:03)
[2018-01-24] MEDS: Enoxaparin 30 mg Syringe SC SCH (09:30)
[2018-01-24] MEDS: Sodium Chloride 0.9% 1,000 ML IV SCH ×2 (09:31→22:00)
[2018-01-24] MEDS: Metoprolol 1 mg/ml Inj IVP SCH ×2 (10:14→20:14)
[2018-01-24] MEDS ORDERED: Multivitamin (MVI) 10 ML, Chromium/Copper/Manganese/Zinc 3 ML in Amino/Dex E 4.25/25 10... IV ONE (15:45)
[2018-01-24] MEDS ORDERED: Fat Emulsion 20% IV 500 ML IV ONE (17:45)
[2018-01-24] MEDS: Latanoprost 0.005% Opht SOUTION OU SCH (22:30)
--- NOTE | 2018-01-25 06:21 | CP.PCM.PN ---
Subjective - Date & Time of Evaluation Date of Evaluation: 01/25/18 Time of Evaluation: 06:40 - Subjective Subjective: General Surgery Note for Dr. Lawler Patient seen and examined at bedside. No acute event overnight. Patient complaining about Ng tube and wants removed. She denies any flatus or BM. She has been OOB to chair. Denies fever/chills and Nausea/Vomiting. NG tube with 50 cc and kruger with 800cc of ouput overnight. Objective - Vital Signs/Intake and Output Vital Signs (last 24 hours): Temp Pulse Resp BP Pulse Ox 98.3 F 101 H 18 156/76 H 100 01/25/18 04:55 01/25/18 04:55 01/25/18 04:55 01/25/18 04:55 01/25/18 04:55 Intake and Output: 01/24/18 01/25/18 18:59 06:59 Intake Total 1731 Output Total 825 Balance 906 - Medications Medications: Current Medications Enoxaparin Sodium (Lovenox) 30 mg SC DAILY [facility] PRN Reason: Protocol Last Admin: 01/24/18 09:30 Dose: 30 mg Famotidine (Pepcid) 20 mg IVP Q12 [facility] Last Admin: 01/24/18 22:00 Dose: 20 mg Vancomycin HCl 750 mg/ Sodium (Chloride) 250 mls @ 166.667 mls/hr IVPB DAILY [facility] PRN Reason: Protocol Last Admin: 01/24/18 09:00 Dose: 166.667 mls/hr Meropenem 1 gm/ Sodium (Chloride) 100 mls @ 100 mls/hr IVPB Q12 [facility] PRN Reason: Protocol Last Admin: 01/24/18 21:03 Dose: 100 mls/hr Sodium Chloride (Sodium Chloride 0.9%) 1,000 mls @ 75 mls/hr IV .[id number] [facility] Last Admin: 01/24/18 22:00 Dose: 75 mls/hr Multivitamins/Vitamin C 10 ml/Chromium/Copper/Manganese/Zinc 3 ml/ Amino Acids/ Electrolytes/Dextrose 1,013 mls @ 38 mls/hr IV .Q24H ONE Stop: 01/25/18 15:44 Last Admin: 01/24/18 17:33 Dose: 38 mls/hr Latanoprost (Xalatan Opht) 1 drop OU HS [facility] Last Admin: 01/24/18 22:30 Dose: 1 drop Metoprolol Tartrate (Lopressor) 5 mg IVP Q12 [facility] Last Admin: 01/24/18 20:14 Dose: 5 mg Morphine Sulfate (Morphine) 4 mg IVP Q4 PRN PRN Reason: Pain, severe (8-10) Ondansetron HCl (Zofran Inj) 4 mg IVP Q6 PRN PRN Reason: Nausea/Vomiting Phenol/Menthol (Phenaseptic 1.4% Throat [place]) 1 spry MT Q2 PRN PRN Reason: Sore Throat - Labs Labs: 01/24/18 05:30 01/24/18 05:30 PT 11.7 Seconds (9.8-13.1) 01/20/18 06:25 INR 1.1 (0.9-1.2) 01/20/18 06:25 APTT 26.4 Seconds (25.6-37.1) 01/08/18 12:40 - Constitutional Appears: No Acute Distress - Head Exam Head Exam: ATRAUMATIC, NORMOCEPHALIC - Eye Exam Eye Exam: Normal appearance - ENT Exam ENT Exam: Mucous Membranes Moist Additional comments: NG tube in place - Respiratory Exam Respiratory Exam: NORMAL BREATHING PATTERN - Cardiovascular Exam Cardiovascular Exam: REGULAR RHYTHM - GI/Abdominal Exam GI & Abdominal Exam: Soft, Tenderness (lori-incisional). absent: Distended, Firm, Guarding, Rigid, Rebound Additional comments: dressing clean dry and intact - Exam Additional comments: kruger in place - Extremities Exam Extremities Exam: Normal Capillary Refill - Neurological Exam Neurological Exam: Alert, Awake - Psychiatric Exam Psychiatric exam: Normal Affect, Normal Mood - Skin Skin Exam: Dry, Intact, Warm Assessment and Plan - Assessment and Plan (Free Text) Plan: 87F s/p exploratory laparotomy with take down of EC fistula and small bowel resection POD#3 - NPO - Continue TPN - NG Tube to suction, Monitor output - Monitor for bowel function - Analgesics PRN - Cepacol spray PRN - OOB to chair, Encourage ambulation -Will discuss with Dr. Bucky Sanchez PGY1
[2018-01-25 07:11] LABS: BASO % 0.7 % (0.0-2.0); EOS # 0.1 K/uL (0.0-0.7); EOS % 1.7 % (0.0-4.0); HEMOGLOBIN 7.6 g/dL (12.0-16.0); MEAN CELL VOLUME 97.6 fl (81.0-99.0); MEAN CORPUSCULAR HEMOGLOBIN 32.7 pg (27.0-31.0); MEAN CORPUSCULAR HGB CONC 33.5 g/dL (33.0-37.0); MEAN PLATELET VOLUME 8.1 fl (7.2-11.7); MONO # 0.6 K/uL (0.0-0.8); MONO % 10.8 % (0.0-10.0); NEUT # 3.7 K/uL (1.8-7.0); NEUT % 68.8 % (50.0-75.0); RBC 2.32 Mil/uL (3.80-5.20); RED CELL DISTRIBUTION WIDTH 15.4 % (11.5-14.5); WHITE BLOOD COUNT 5.3 K/uL (4.8-10.8)
--- NOTE | 2018-01-25 07:18 | CP.PCM.PN ---
Subjective - Date & Time of Evaluation Date of Evaluation: 01/25/18 Time of Evaluation: 07:17 - Subjective Subjective: pt complaining of RLE pain, no erythema, mild edema. duplex pending however, pt H/H also mildly trending down, 7.6/ today NGT appx 50 cc out overnight HD stable, no acute distress closely monitor. pt has refused transfusion in the past and received venofer. Objective - Vital Signs/Intake and Output Vital Signs (last 24 hours): Temp Pulse Resp BP Pulse Ox 98.3 F 101 H 18 156/76 H 100 01/25/18 04:55 01/25/18 04:55 01/25/18 04:55 01/25/18 04:55 01/25/18 04:55 Vitals Reviewed GEN: WDWN, alert, cooperative HEENT: NCAT, PERRL, EOMI HEART: RRR, +S1S2, NO MRG LUNG: CTAB, NO WRR ABD: soft, NT, ND, No HSM, No masses EXT: normal pedal pulses, normal capillary refill NEURO: awake, alert, no focal deficits SKIN: warm, dry PSYCH: normal mood, normal affect Intake and Output: 01/25/18 01/25/18 06:59 18:59 Intake Total 2456 Output Total 900 Balance 1556 - Medications Medications: Current Medications Enoxaparin Sodium (Lovenox) 30 mg SC DAILY [facility] PRN Reason: Protocol Last Admin: 01/24/18 09:30 Dose: 30 mg Famotidine (Pepcid) 20 mg IVP Q12 [facility] Last Admin: 01/24/18 22:00 Dose: 20 mg Vancomycin HCl 750 mg/ Sodium (Chloride) 250 mls @ 166.667 mls/hr IVPB DAILY [facility] PRN Reason: Protocol Last Admin: 01/24/18 09:00 Dose: 166.667 mls/hr Meropenem 1 gm/ Sodium (Chloride) 100 mls @ 100 mls/hr IVPB Q12 [facility] PRN Reason: Protocol Last Admin: 01/24/18 21:03 Dose: 100 mls/hr Sodium Chloride (Sodium Chloride 0.9%) 1,000 mls @ 75 mls/hr IV .[id number] [facility] Last Admin: 01/24/18 22:00 Dose: 75 mls/hr Multivitamins/Vitamin C 10 ml/Chromium/Copper/Manganese/Zinc 3 ml/ Amino Acids/ Electrolytes/Dextrose 1,013 mls @ 38 mls/hr IV .Q24H ONE Stop: 01/25/18 15:44 Last Admin: 01/24/18 17:33 Dose: 38 mls/hr Latanoprost (Xalatan Opht) 1 drop OU HS [facility] Last Admin: 01/24/18 22:30 Dose: 1 drop Metoprolol Tartrate (Lopressor) 5 mg IVP Q12 [facility] Last Admin: 01/24/18 20:14 Dose: 5 mg Morphine Sulfate (Morphine) 4 mg IVP Q4 PRN PRN Reason: Pain, severe (8-10) Ondansetron HCl (Zofran Inj) 4 mg IVP Q6 PRN PRN Reason: Nausea/Vomiting Phenol/Menthol (Phenaseptic 1.4% Throat [place]) 1 spry MT Q2 PRN PRN Reason: Sore Throat - Labs Labs: 01/24/18 05:30 01/24/18 05:30 PT 11.7 Seconds (9.8-13.1) 01/20/18 06:25 INR 1.1 (0.9-1.2) 01/20/18 06:25 APTT 26.4 Seconds (25.6-37.1) 01/08/18 12:40 Assessment and Plan - Assessment and Plan (Free Text) Plan: 87 yo female with a past medical history of arthritis and hypertension was recently admitted to [facility] on 11/25/2017 for Cholecystitis, underwent Lap tyesha and developed iatrogenic enterotomy. At home her surgical wound started draining some mucoid greenish material and she was advised to come in for evaluation by her surgeon. 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 Patient was admitted , started on IV Zosyn and Flagyl , kept NPO , and managed conservatively with NPO, TPN, and IV antibiotics. Wound cultures were reported as positive for Serratia Liquefaciens and antibiotics changed to Meropenem IV. Patient's drainage resolved and diet was upgraded to regular and she tolerated well and was sent home. 01/08/18 : returns with drainage from fistula again. CT abdomen showed enterocutaneous fistula with a tract better delineated on the current examination, well delineated by oral contrast material including umbilicus or periumbilical abdominal wall deformity. 01/22: s/p ExLap, Repair of EC Fistula and Bowel resection 1. Enterocutaneous Fistula s/p Repair with bowel resection NGT in place pt still NPO Continue TPN via PICC line cont Meropenem and Vanco IV Pain mgt wound cx form fistula positive for E. Coli and Enterococcus faecalis ID following pt 2. Anemia, chronic stable pt refused transfusion received IV venofer for 10 days , give additional dose today H/H slowly trending down post op, will monitor. no tachycardia, HD stable 3.UTI - treated Urine c/s positive for E coli and Enterococcus faecalis on Meropenem and Vanco 4. HTN BP stable monitor vitals cont Metoprolol 5 mg IV BID while NPO 5. Hyperlipidemia Hold statin for now due to total NPO status 6. Acute Renal Insufficiency probably secondary to volume depletion, resolved 7. Abn LFT ? etiology will rpt LFTs in am DVT prophylaxis restart Lovenox
[2018-01-25 07:37] LABS: ALB/GLOB RATIO 0.8 (1.0-2.1); ALBUMIN 2.5 g/dL (3.5-5.0); ALT/SGPT 56 U/L (9-52); AST/SGOT 35 U/L (14-36); BLOOD UREA NITROGEN 15 mg/dl (7-17); CALCIUM 7.9 mg/dL (8.4-10.2); GFR AFRICAN-AMERICAN > 60; GFR NON-AFRICAN AMERICAN > 60
[2018-01-25] MEDS: Metoprolol 1 mg/ml Inj IVP SCH ×2 (09:43→21:18)
[2018-01-25] MEDS: Enoxaparin 30 mg Syringe SC SCH (09:44)
[2018-01-25] MEDS: Meropenem 1 GM in Sodium Chloride 0.9% 100 ML IVPB SCH (09:44)
--- NOTE | 2018-01-25 12:36 | CP.PCM.PN ---
Subjective - Date & Time of Evaluation Date of Evaluation: 01/25/18 Time of Evaluation: 15:16 - Subjective Subjective: ID Note- Pt. seen and examined today. denies any fever or chills. still has NGT in place. no BM yet. Objective - Vital Signs/Intake and Output Vital Signs (last 24 hours): Temp Pulse Resp BP Pulse Ox 98.5 F 96 H 18 118/68 100 01/25/18 12:23 01/25/18 12:23 01/25/18 12:23 01/25/18 12:23 01/25/18 12:23 Intake and Output: 01/25/18 01/25/18 06:59 18:59 Intake Total 2456 Output Total 900 Balance 1556 - Medications Medications: Current Medications Enoxaparin Sodium (Lovenox) 30 mg SC DAILY [facility] PRN Reason: Protocol Last Admin: 01/25/18 09:44 Dose: 30 mg Famotidine (Pepcid) 20 mg IVP Q12 [facility] Last Admin: 01/25/18 09:46 Dose: 20 mg Vancomycin HCl 750 mg/ Sodium (Chloride) 250 mls @ 166.667 mls/hr IVPB DAILY [facility] PRN Reason: Protocol Last Admin: 01/25/18 09:45 Dose: 166.667 mls/hr Meropenem 1 gm/ Sodium (Chloride) 100 mls @ 100 mls/hr IVPB Q12 [facility] PRN Reason: Protocol Last Admin: 01/25/18 09:44 Dose: 100 mls/hr Sodium Chloride (Sodium Chloride 0.9%) 1,000 mls @ 75 mls/hr IV .[id number] [facility] Last Admin: 01/24/18 22:00 Dose: 75 mls/hr Multivitamins/Vitamin C 10 ml/Chromium/Copper/Manganese/Zinc 3 ml/ Amino Acids/ Electrolytes/Dextrose 1,013 mls @ 38 mls/hr IV .Q24H ONE Stop: 01/25/18 15:44 Last Admin: 01/24/18 17:33 Dose: 38 mls/hr Latanoprost (Xalatan Opht) 1 drop OU HS [facility] Last Admin: 01/24/18 22:30 Dose: 1 drop Metoprolol Tartrate (Lopressor) 5 mg IVP Q12 [facility] Last Admin: 01/25/18 09:43 Dose: 5 mg Morphine Sulfate (Morphine) 4 mg IVP Q4 PRN PRN Reason: Pain, severe (8-10) Last Admin: 01/25/18 09:02 Dose: 4 mg Ondansetron HCl (Zofran Inj) 4 mg IVP Q6 PRN PRN Reason: Nausea/Vomiting Phenol/Menthol (Phenaseptic 1.4% Throat [place]) 1 spry MT Q2 PRN PRN Reason: Sore Throat - Labs Labs: - Constitutional Appears: No Acute Distress - Head Exam Head Exam: ATRAUMATIC - Eye Exam Eye Exam: EOMI - ENT Exam ENT Exam: Normal Oropharynx - Respiratory Exam Respiratory Exam: Clear to Ausculation Bilateral, NORMAL BREATHING PATTERN - Cardiovascular Exam Cardiovascular Exam: RRR, +S1, +S2 - GI/Abdominal Exam GI & Abdominal Exam: Soft Additional comments: No distention abdominal surgical site with whitley in place, no discharge, no erythema hypoactive BS no tenderness no guarding, no rebound - Extremities Exam Extremities Exam: Normal Inspection - Neurological Exam Neurological Exam: Alert, Awake, Oriented x3 - Additional Findings Additional findings: Laboratory Results - last 72 hr 01/16/18 01/21/18 01/23/18 06:20 16:05 04:22 WBC 13.0 H D RBC 2.61 L Hgb 8.3 L Hct 25.3 L MCV 97.1 MCH 31.7 H MCHC 32.6 L RDW 15.2 H Plt Count 180 MPV 8.8 Neut % (Auto) 84.6 H Lymph % (Auto) 9.7 L [place] % (Auto) 5.6 Eos % (Auto) 0.0 Baso % (Auto) 0.1 Neut # (Auto) 11.0 H Lymph # (Auto) 1.3 [place] # (Auto) 0.7 Eos # (Auto) 0.0 Baso # (Auto) 0.0 Neutrophils % (Manual) 91 H Lymphocytes % (Manual) 5 L Monocytes % (Manual) 4 Toxic Granulation Present Platelet Estimate Normal Hypochromasia (manual) Moderate Anisocytosis (manual) Slight Macrocytosis (manual) Slight Ovalocytes Slight Schistocytes Slight Sodium Potassium Chloride Carbon Dioxide Anion Gap BUN Creatinine Est GFR ( Amer) Est GFR (Non-Af Amer) Random Glucose Calcium Phosphorus Magnesium Total Bilirubin Direct Bilirubin AST ALT Alkaline Phosphatase Total Protein Albumin Globulin Albumin/Globulin Ratio Triglycerides Phospholipids 183 Vancomycin Trough Crossmatch See Detail 01/23/18 01/24/18 01/24/18 04:22 05:30 05:30 WBC 7.6 RBC 2.51 L Hgb 8.1 L Hct 24.3 L MCV 97.0 MCH 32.5 H MCHC 33.5 RDW 15.2 H Plt Count 179 MPV 8.9 Neut % (Auto) 71.8 Lymph % (Auto) 15.4 L [place] % (Auto) 12.2 H Eos % (Auto) 0.3 Baso % (Auto) 0.3 Neut # (Auto) 5.4 Lymph # (Auto) 1.2 [place] # (Auto) 0.9 H Eos # (Auto) 0.0 Baso # (Auto) 0.0 Neutrophils % (Manual) Lymphocytes % (Manual) Monocytes % (Manual) Toxic Granulation Platelet Estimate Hypochromasia (manual) Anisocytosis (manual) Macrocytosis (manual) Ovalocytes Schistocytes Sodium 141 141 Potassium 4.5 3.9 Chloride 103 103 Carbon Dioxide 29 29 Anion Gap 14 13 BUN 17 19 H Creatinine 0.8 0.8 Est GFR ( Amer) > 60 > 60 Est GFR (Non-Af Amer) > 60 > 60 Random Glucose 172 H 132 H Calcium 8.6 8.8 Phosphorus 1.9 L Magnesium 1.8 Total Bilirubin 0.3 0.4 Direct Bilirubin 0.3 AST 120 H D 54 H D ALT 124 H D 81 H D Alkaline Phosphatase 129 H 111 Total Protein 6.2 L 6.1 L Albumin 2.7 L 2.6 L Globulin 3.4 3.5 Albumin/Globulin Ratio 0.8 L 0.7 L Triglycerides 180 H D Phospholipids Vancomycin Trough Crossmatch 01/24/18 01/25/18 01/25/18 05:30 06:30 06:30 WBC 5.3 RBC 2.32 L Hgb 7.6 L Hct 22.6 L MCV 97.6 MCH 32.7 H MCHC 33.5 RDW 15.4 H Plt Count 159 MPV 8.1 Neut % (Auto) 68.8 Lymph % (Auto) 18.0 L [place] % (Auto) 10.8 H Eos % (Auto) 1.7 Baso % (Auto) 0.7 Neut # (Auto) 3.7 Lymph # (Auto) 1.0 [place] # (Auto) 0.6 Eos # (Auto) 0.1 Baso # (Auto) 0.0 Neutrophils % (Manual) Lymphocytes % (Manual) Monocytes % (Manual) Toxic Granulation Platelet Estimate Hypochromasia (manual) Anisocytosis (manual) Macrocytosis (manual) Ovalocytes Schistocytes Sodium 138 Potassium 3.7 Chloride 100 Carbon Dioxide 32 H Anion Gap 10 BUN 15 Creatinine 0.7 Est GFR ( Amer) > 60 Est GFR (Non-Af Amer) > 60 Random Glucose 146 H Calcium 7.9 L Phosphorus 2.6 Magnesium 1.6 Total Bilirubin 0.2 Direct Bilirubin AST 35 ALT 56 H D Alkaline Phosphatase 93 Total Protein 5.7 L Albumin 2.5 L Globulin 3.2 Albumin/Globulin Ratio 0.8 L Triglycerides Phospholipids Vancomycin Trough 20.2 H Crossmatch Microbiology 01/08/18 13:00 Blood-Venous Blood Culture - Final NO GROWTH AFTER 5 DAYS 01/08/18 12:30 Blood-Venous Blood Culture - Final NO GROWTH AFTER 5 DAYS 01/08/18 14:27 Urine,Clean Catch Urine Culture - Final Escherichia Coli Enterococcus Faecalis 01/08/18 13:27 Abdomen Gram Stain - Final 01/08/18 13:27 Abdomen Wound Culture - Final Escherichia Coli Enterococcus Faecalis Assessment and Plan (1) Enterocutaneous fistula Status: Acute (2) S/P laparoscopic cholecystectomy Status: Acute - Assessment and Plan (Free Text) Assessment: A/P- 87 year old female s/p recent lap tyesha with subsequent enterocutaneous fistula formation with serratia growth from the wound cx from last admission last month and completed 10 days of IV antibiotics and wound opening had closed, who now presents to ED with opening again at site of the fistula in midabdomen with yellow -green discharge. pod #3 s/p Exploratory Laparostomy, take down of EC fistula, small bowel resection afebrile normal wbc count + UA urine cx - e.coli not esbl, e.fecalis Wound cx - e.coli and e.fecalis blood cx- neg x 2 repeat UA- Negative LFTS trending down to almost normal values. plan- ahas now completed total of 14 days of IV meropnem , advise to d/c this abx since the enterocutaneous fistula has been surgically corrected. has completed 12 days of IV vancomycin for initial E.fecalis in wound and urine cx. d/c vanco today. All above d/w patient and her family who is at her bedside at length and they verbalize full understanding of all above.
[2018-01-25] MEDS ORDERED: Fat Emulsion 20% IV 250 ML IV ONE (15:00)
[2018-01-25] MEDS ORDERED: [UNRECOGNIZED DRUG - OTHER] IV ONE (15:30)
[2018-01-25] MEDS ORDERED: COPPER IV ONE (15:30)
[2018-01-25] MEDS ORDERED: MULTIVITAMIN IV ONE (15:30)
[2018-01-25] MEDS ORDERED: MANGANESE IV ONE (15:30)
[2018-01-25] MEDS ORDERED: CHROMIUM IV ONE (15:30)
[2018-01-25] MEDS ORDERED: ZINC IV ONE (15:30)
--- NOTE | 2018-01-25 17:09 | US ---
PROCEDURE: Bilateral lower extremity venous duplex Doppler. HISTORY: LE pain, DVT? COMPARISON: Comparison made with prior study 11/30/2017 TECHNIQUE: Bilateral common femoral, superficial femoral, popliteal and posterior tibial veins were evaluated. Flow was assessed with color Doppler, compressibility, assessment of phasic flow and augmentation response. FINDINGS: COMMON FEMORAL VEIN: Right CFV: Unremarkable. Left CFV: Unremarkable. SUPERFICIAL FEMORAL VEIN: Right SFV: Unremarkable. Left SFV: Unremarkable. POPLITEAL VEIN: Right Popliteal: Unremarkable. Left Popliteal: Unremarkable. POSTERIOR TIBIAL VEIN: Right PTV: Unremarkable. Left PTV: Unremarkable. OTHER FINDINGS: None. IMPRESSION: No evidence of deep venous thrombosis.
[2018-01-25] MEDS: Sodium Chloride 0.9% 1,000 ML IV SCH ×2 (17:10→23:30)
[2018-01-25] MEDS: Latanoprost 0.005% Opht SOUTION OU SCH (21:19)
[2018-01-26 08:22] LABS: ALB/GLOB RATIO 0.8 (1.0-2.1); ALBUMIN 2.7 g/dL (3.5-5.0); ALT/SGPT 47 U/L (9-52); AST/SGOT 24 U/L (14-36); BLOOD UREA NITROGEN 18 mg/dl (7-17); CALCIUM 8.4 mg/dL (8.4-10.2); GFR AFRICAN-AMERICAN > 60; GFR NON-AFRICAN AMERICAN > 60
[2018-01-26] MEDS: Metoprolol 1 mg/ml Inj IVP SCH ×2 (08:41→21:26)
--- NOTE | 2018-01-26 08:46 | CP.PCM.PN ---
Subjective - Date & Time of Evaluation Date of Evaluation: 01/26/18 Time of Evaluation: 06:35 - Subjective Subjective: General Surgery Note for Dr. Lawler Patient seen and examined at bedside. No acute event overnight. Patient denies abdominal pain. She would like Ng tube removed today. She denies having BM for 4 days. Denies fever/chills and Nausea/Vomiting. NG tube with 50 cc and kruger with 600cc of output overnight. Objective - Vital Signs/Intake and Output Vital Signs (last 24 hours): Temp Pulse Resp BP Pulse Ox 97.9 F 91 H 18 148/78 100 01/26/18 08:31 01/26/18 08:41 01/26/18 08:31 01/26/18 08:41 01/26/18 08:31 Intake and Output: 01/26/18 01/26/18 06:59 18:59 Intake Total 1406 Output Total 650 Balance 756 - Medications Medications: Current Medications Enoxaparin Sodium (Lovenox) 30 mg SC DAILY [facility] PRN Reason: Protocol Last Admin: 01/25/18 09:44 Dose: 30 mg Famotidine (Pepcid) 20 mg IVP Q12 [facility] Last Admin: 01/26/18 08:42 Dose: 20 mg Sodium Chloride (Sodium Chloride 0.9%) 1,000 mls @ 75 mls/hr IV .[id number] [facility] Last Admin: 01/25/18 23:30 Dose: 75 mls/hr Multivitamins/Vitamin C 10 ml/Chromium/Copper/Manganese/Zinc 3 ml/ Amino Acids 1,013 mls @ 38 mls/hr IV .Q24H ONE Stop: 01/26/18 15:29 Last Admin: 01/25/18 17:46 Dose: 38 mls/hr Latanoprost (Xalatan Opht) 1 drop OU HS [facility] Last Admin: 01/25/18 21:19 Dose: 1 drop Metoprolol Tartrate (Lopressor) 5 mg IVP Q12 [facility] Last Admin: 01/26/18 08:41 Dose: 5 mg Morphine Sulfate (Morphine) 4 mg IVP Q4 PRN PRN Reason: Pain, severe (8-10) Last Admin: 01/25/18 09:02 Dose: 4 mg Ondansetron HCl (Zofran Inj) 4 mg IVP Q6 PRN PRN Reason: Nausea/Vomiting Phenol/Menthol (Phenaseptic 1.4% Throat [place]) 1 spry MT Q2 PRN PRN Reason: Sore Throat - Labs Labs: 01/25/18 06:30 01/26/18 05:50 PT 11.7 Seconds (9.8-13.1) 01/20/18 06:25 INR 1.1 (0.9-1.2) 01/20/18 06:25 APTT 26.4 Seconds (25.6-37.1) 01/08/18 12:40 - Constitutional Appears: No Acute Distress - Head Exam Head Exam: ATRAUMATIC, NORMOCEPHALIC - Eye Exam Eye Exam: Normal appearance - ENT Exam Additional comments: NGT in place - Respiratory Exam Respiratory Exam: NORMAL BREATHING PATTERN - Cardiovascular Exam Cardiovascular Exam: REGULAR RHYTHM - GI/Abdominal Exam GI & Abdominal Exam: Soft. absent: Distended, Guarding, Tenderness, Rebound Additional comments: dressing covering surgical incision - Exam Additional comments: kruger in place - Extremities Exam Extremities Exam: Normal Capillary Refill - Neurological Exam Neurological Exam: Alert, Awake, Oriented x3 - Psychiatric Exam Psychiatric exam: Normal Affect, Normal Mood - Skin Skin Exam: Dry, Intact, Normal Color, Warm Assessment and Plan - Assessment and Plan (Free Text) Plan: 87F s/p exploratory laparotomy with take down of EC fistula and small bowel resection POD#4 - NPO - Continue TPN - NG Tube to suction, Monitor output - Monitor for bowel function - Analgesics PRN - OOB to chair, Encourage ambulation - Will discuss with Dr. Bucky Sanchez PGY1
[2018-01-26 09:14] LABS: HEMOGLOBIN 8.7 g/dL (12.0-16.0); MEAN CELL VOLUME 98.7 fl (81.0-99.0); MEAN CORPUSCULAR HGB CONC 33.4 g/dL (33.0-37.0); RBC 2.63 Mil/uL (3.80-5.20); RED CELL DISTRIBUTION WIDTH 15.6 % (11.5-14.5); WHITE BLOOD COUNT 7.2 K/uL (4.8-10.8)
--- NOTE | 2018-01-26 09:51 | CP.PCM.PN ---
Subjective - Date & Time of Evaluation Date of Evaluation: 01/26/18 Time of Evaluation: 09:51 - Subjective Subjective: pt comfortable no complaints no cp or sob had lower extremity pain, dopplers were neg hd stable nad Objective - Vital Signs/Intake and Output Vital Signs (last 24 hours): Temp Pulse Resp BP Pulse Ox 97.9 F 91 H 18 148/78 100 01/26/18 08:31 01/26/18 08:41 01/26/18 08:31 01/26/18 08:41 01/26/18 08:31 Vitals Reviewed GEN: WDWN, alert, cooperative HEENT: NCAT, PERRL, EOMI NGT IN PLACE HEART: RRR, +S1S2, NO MRG LUNG: CTAB, NO WRR ABD: soft, NT, ND, No HSM, No masses EXT: normal pedal pulses, normal capillary refill NEURO: awake, alert, no focal deficits SKIN: warm, dry PSYCH: normal mood, normal affect Intake and Output: 01/26/18 01/26/18 06:59 18:59 Intake Total 1406 Output Total 650 Balance 756 - Medications Medications: Current Medications Famotidine (Pepcid) 20 mg IVP Q12 [facility] Last Admin: 01/26/18 08:42 Dose: 20 mg Sodium Chloride (Sodium Chloride 0.9%) 1,000 mls @ 75 mls/hr IV .[id number] [facility] Last Admin: 01/25/18 23:30 Dose: 75 mls/hr Multivitamins/Vitamin C 10 ml/Chromium/Copper/Manganese/Zinc 3 ml/ Amino Acids 1,013 mls @ 38 mls/hr IV .Q24H ONE Stop: 01/26/18 15:29 Last Admin: 01/25/18 17:46 Dose: 38 mls/hr Latanoprost (Xalatan Opht) 1 drop OU HS [facility] Last Admin: 01/25/18 21:19 Dose: 1 drop Metoprolol Tartrate (Lopressor) 5 mg IVP Q12 [facility] Last Admin: 01/26/18 08:41 Dose: 5 mg Morphine Sulfate (Morphine) 4 mg IVP Q4 PRN PRN Reason: Pain, severe (8-10) Last Admin: 01/25/18 09:02 Dose: 4 mg Ondansetron HCl (Zofran Inj) 4 mg IVP Q6 PRN PRN Reason: Nausea/Vomiting Phenol/Menthol (Phenaseptic 1.4% Throat [place]) 1 spry MT Q2 PRN PRN Reason: Sore Throat - Labs Labs: 01/26/18 05:50 01/26/18 05:50 PT 11.7 Seconds (9.8-13.1) 01/20/18 06:25 INR 1.1 (0.9-1.2) 01/20/18 06:25 APTT 26.4 Seconds (25.6-37.1) 01/08/18 12:40 Assessment and Plan - Assessment and Plan (Free Text) Plan: 87 yo female with a past medical history of arthritis and hypertension was recently admitted to [facility] on 11/25/2017 for Cholecystitis, underwent Lap tyesha and developed iatrogenic enterotomy. At home her surgical wound started draining some mucoid greenish material and she was advised to come in for evaluation by her surgeon. 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 Patient was admitted , started on IV Zosyn and Flagyl , kept NPO , and managed conservatively with NPO, TPN, and IV antibiotics. Wound cultures were reported as positive for Serratia Liquefaciens and antibiotics changed to Meropenem IV. Patient's drainage resolved and diet was upgraded to regular and she tolerated well and was sent home. 01/08/18 : returns with drainage from fistula again. CT abdomen showed enterocutaneous fistula with a tract better delineated on the current examination, well delineated by oral contrast material including umbilicus or periumbilical abdominal wall deformity. 01/22: s/p ExLap, Repair of EC Fistula and Bowel resection 1. Enterocutaneous Fistula s/p Repair with bowel resection NGT in place pt still NPO Continue TPN via PICC line cont Meropenem and Vanco IV Pain mgt wound cx form fistula positive for E. Coli and Enterococcus faecalis ID following pt 2. Anemia, chronic stable pt refused transfusion received IV venofer for 10 days , give additional dose today H/H slowly trending down post op, will monitor. no tachycardia, HD stable 3.UTI - treated Urine c/s positive for E coli and Enterococcus faecalis on Meropenem and Vanco 4. HTN BP stable monitor vitals cont Metoprolol 5 mg IV BID while NPO 5. Hyperlipidemia Hold statin for now due to total NPO status 6. Acute Renal Insufficiency probably secondary to volume depletion, resolved 7. Abn LFTs resolved DVT prophylaxis restart Lovenox
[2018-01-26] MEDS: Sodium Chloride 0.9% 1,000 ML IV SCH ×2 (12:42→14:11)
[2018-01-26] MEDS ORDERED: Multivitamin (MVI) 10 ML, Chromium/Copper/Manganese/Zinc 3 ML in Amino Acids/Dextrose 1... IV ONE (16:00)
[2018-01-26] MEDS ORDERED: Fat Emulsion 20% IV 250 ML IV ONE (16:00)
[2018-01-26] MEDS ORDERED: Sodium Chloride 0.9% 1,000 ML IV SCH (17:00)
[2018-01-26] MEDS: Enoxaparin 30 mg Syringe SC SCH ×2 (17:01→17:15)
[2018-01-26] MEDS: Latanoprost 0.005% Opht SOUTION OU SCH (21:27)
[2018-01-27] MEDS: Sodium Chloride 0.9% 1,000 ML IV SCH ×2 (02:11→17:13)
[2018-01-27 05:51] LABS: BASO % 0.5 % (0.0-2.0); EOS # 0.1 K/uL (0.0-0.7); EOS % 2.9 % (0.0-4.0); HEMOGLOBIN 7.8 g/dL (12.0-16.0); LYMPH # 1.1 K/uL (1.0-4.3); LYMPH % 20.9 % (20.0-40.0); MEAN CELL VOLUME 97.5 fl (81.0-99.0); MEAN CORPUSCULAR HEMOGLOBIN 33.1 pg (27.0-31.0); MEAN CORPUSCULAR HGB CONC 33.9 g/dL (33.0-37.0); MEAN PLATELET VOLUME 8.8 fl (7.2-11.7); MONO # 0.5 K/uL (0.0-0.8); NEUT # 3.5 K/uL (1.8-7.0); NEUT % 66.7 % (50.0-75.0); NRBC % 0.2 % (0.0-0.0); RBC 2.35 Mil/uL (3.80-5.20); RED CELL DISTRIBUTION WIDTH 15.2 % (11.5-14.5); WHITE BLOOD COUNT 5.2 K/uL (4.8-10.8)
[2018-01-27 06:06] LABS: BLOOD UREA NITROGEN 18 mg/dl (7-17); CALCIUM 8.4 mg/dL (8.4-10.2); GFR AFRICAN-AMERICAN > 60; GFR NON-AFRICAN AMERICAN > 60
[2018-01-27] MEDS ORDERED: Potassium Phosphate 30 MMOLE in Sodium Chloride 0.9% 250 ML IV ONE (07:30)
--- NOTE | 2018-01-27 08:15 | CP.PCM.PN ---
<CésarGardenia - Last Filed: 01/27/18 09:29> Subjective - Date & Time of Evaluation Date of Evaluation: 01/27/18 Time of Evaluation: 08:13 - Subjective Subjective: General surgery - Dr. Lawler Pt S&ELorraine [place]. Pt denies any complaints at this time. She had NGT removed yesterday and is tolerating ice chips. No Nausea/vomiting, fevers or chills. She had 1 small BM yesterday. Objective - Vital Signs/Intake and Output Vital Signs (last 24 hours): Temp Pulse Resp BP Pulse Ox 98.2 F 81 18 129/72 100 01/27/18 08:02 01/27/18 08:02 01/27/18 08:02 01/27/18 08:02 01/27/18 08:02 Intake and Output: 01/27/18 01/27/18 06:59 18:59 Intake Total 2156 Output Total 800 Balance 1356 - Medications Medications: Current Medications Enoxaparin Sodium (Lovenox) 40 mg SC DAILY [facility] PRN Reason: Protocol Famotidine (Pepcid) 20 mg IVP Q12 [facility] Last Admin: 01/26/18 21:26 Dose: 20 mg Sodium Chloride (Sodium Chloride 0.9%) 1,000 mls @ 75 mls/hr IV .[id number] [facility] Last Admin: 01/27/18 02:11 Dose: 75 mls/hr Fat Emulsion Intravenous (Intralipid 20%) 250 mls @ 10.417 mls/hr IV ONCE ONE Stop: 01/27/18 15:59 Last Admin: 01/26/18 17:00 Dose: 10.417 mls/hr Multivitamins/Vitamin C 10 ml/Chromium/Copper/Manganese/Zinc 3 ml/ Amino Acids 1,013 mls @ 38 mls/hr IV .Q24H [facility] Stop: 01/27/18 15:59 Last Admin: 01/26/18 21:15 Dose: 38 mls/hr Sodium Chloride (Sodium Chloride 0.9%) 1,000 mls @ 75 mls/hr IV .[id number] [facility] Stop: 01/27/18 16:48 Last Admin: 01/26/18 17:01 Dose: Not Given Potassium Phosphate 30 mmole/ (Sodium Chloride) 260 mls @ 65 mls/hr IV ONCE ONE Stop: 01/27/18 11:29 Latanoprost (Xalatan Opht) 1 drop OU HS [facility] Last Admin: 01/26/18 21:27 Dose: 1 drop Metoprolol Tartrate (Lopressor) 5 mg IVP Q12 [facility] Last Admin: 01/26/18 21:26 Dose: 5 mg Ondansetron HCl (Zofran Inj) 4 mg IVP Q6 PRN PRN Reason: Nausea/Vomiting Phenol/Menthol (Phenaseptic 1.4% Throat [place]) 1 spry MT Q2 PRN PRN Reason: Sore Throat - Labs Labs: 01/27/18 04:20 01/27/18 04:20 PT 11.7 Seconds (9.8-13.1) 01/20/18 06:25 INR 1.1 (0.9-1.2) 01/20/18 06:25 APTT 26.4 Seconds (25.6-37.1) 01/08/18 12:40 - Constitutional Appears: No Acute Distress - Head Exam Head Exam: ATRAUMATIC, NORMAL INSPECTION, NORMOCEPHALIC - Respiratory Exam Respiratory Exam: NORMAL BREATHING PATTERN. absent: Respiratory Distress - GI/Abdominal Exam GI & Abdominal Exam: Soft. absent: Distended, Guarding, Tenderness, Rebound - Neurological Exam Neurological Exam: Alert, Oriented x3 - Psychiatric Exam Psychiatric exam: Normal Affect, Normal Mood - Skin Skin Exam: Dry, Intact Assessment and Plan - Assessment and Plan (Free Text) Assessment: 87F s/p ex-lap with take down of EC fistula and small bowel resection POD#5 - Continue NPO with ice chips - Continue TPN - Replace Electrolytes as needed - Encourage OOB to chair and Ambulation Will discuss with Dr. Lawler <Michael Lawler - Last Filed: 01/27/18 13:12> Subjective - Date & Time of Evaluation Time of Evaluation: 12:15 - Subjective Subjective: Patient was seen and examined at the bedside. Agree with resident's note above. Objective - Vital Signs/Intake and Output Vital Signs (last 24 hours): Temp Pulse Resp BP Pulse Ox 98.2 F 86 18 125/77 100 01/27/18 12:36 01/27/18 12:36 01/27/18 12:36 01/27/18 12:36 01/27/18 12:36 Intake and Output: 01/27/18 01/27/18 06:59 18:59 Intake Total 2156 Output Total 800 Balance 1356 - Medications Medications: Current Medications Enoxaparin Sodium (Lovenox) 40 mg SC DAILY [facility] PRN Reason: Protocol Last Admin: 01/27/18 10:09 Dose: 40 mg Famotidine (Pepcid) 20 mg IVP Q12 [facility] Last Admin: 01/27/18 09:58 Dose: 20 mg Sodium Chloride (Sodium Chloride 0.9%) 1,000 mls @ 75 mls/hr IV .[id number] [facility] Last Admin: 01/27/18 02:11 Dose: 75 mls/hr Fat Emulsion Intravenous (Intralipid 20%) 250 mls @ 10.417 mls/hr IV ONCE ONE Stop: 01/27/18 15:59 Last Admin: 01/26/18 17:00 Dose: 10.417 mls/hr Multivitamins/Vitamin C 10 ml/Chromium/Copper/Manganese/Zinc 3 ml/ Amino Acids 1,013 mls @ 38 mls/hr IV .Q24H [facility] Stop: 01/27/18 15:59 Last Admin: 01/26/18 21:15 Dose: 38 mls/hr Sodium Chloride (Sodium Chloride 0.9%) 1,000 mls @ 75 mls/hr IV .[id number] [facility] Stop: 01/27/18 16:48 Last Admin: 01/26/18 17:01 Dose: Not Given Latanoprost (Xalatan Opht) 1 drop OU HS [facility] Last Admin: 01/26/18 21:27 Dose: 1 drop Metoprolol Tartrate (Lopressor) 5 mg IVP Q12 [facility] Last Admin: 01/27/18 10:09 Dose: 5 mg Ondansetron HCl (Zofran Inj) 4 mg IVP Q6 PRN PRN Reason: Nausea/Vomiting Phenol/Menthol (Phenaseptic 1.4% Throat [place]) 1 spry MT Q2 PRN PRN Reason: Sore Throat - Labs Labs: 01/27/18 04:20 01/27/18 12:05 PT 11.7 Seconds (9.8-13.1) 01/20/18 06:25 INR 1.1 (0.9-1.2) 01/20/18 06:25 APTT 26.4 Seconds (25.6-37.1) 01/08/18 12:40 Assessment and Plan - Assessment and Plan (Free Text) Plan: - start clear liquid diet - pain control - IV fluids - TPN - Remove kruger - Repeat labs in am - Insentive spirometry - DVT ppx - Repeat labs in am
[2018-01-27] MEDS: Metoprolol 1 mg/ml Inj IVP SCH ×2 (10:09→20:18)
[2018-01-27] MEDS: Enoxaparin 40 mg Syringe SC SCH (10:09)
--- NOTE | 2018-01-27 14:46 | CP.PCM.PN ---
Subjective - Date & Time of Evaluation Date of Evaluation: 01/07/18 Time of Evaluation: 12:00 - Subjective Subjective: Patient seen and examined bedside . Feeling well. Hemodynamically stable, afebrile. No acute issues overnight Started on liquid diet and tolerating Midline surgical incision healing well with minimal serosanguinous drainage from lower portion and mid portion Still on TPN via PICC line Objective - Vital Signs/Intake and Output Vital Signs (last 24 hours): Temp Pulse Resp BP Pulse Ox 98.2 F 86 18 125/77 100 01/27/18 12:36 01/27/18 12:36 01/27/18 12:36 01/27/18 12:36 01/27/18 12:36 Intake and Output: 01/27/18 01/27/18 06:59 18:59 Intake Total 2156 Output Total 800 Balance 1356 - Medications Medications: Current Medications Enoxaparin Sodium (Lovenox) 40 mg SC DAILY [facility] PRN Reason: Protocol Last Admin: 01/27/18 10:09 Dose: 40 mg Famotidine (Pepcid) 20 mg IVP Q12 [facility] Last Admin: 01/27/18 09:58 Dose: 20 mg Sodium Chloride (Sodium Chloride 0.9%) 1,000 mls @ 75 mls/hr IV .[id number] [facility] Last Admin: 01/27/18 02:11 Dose: 75 mls/hr Fat Emulsion Intravenous (Intralipid 20%) 250 mls @ 10.417 mls/hr IV ONCE ONE Stop: 01/27/18 15:59 Last Admin: 01/26/18 17:00 Dose: 10.417 mls/hr Multivitamins/Vitamin C 10 ml/Chromium/Copper/Manganese/Zinc 3 ml/ Amino Acids 1,013 mls @ 38 mls/hr IV .Q24H ONE Stop: 01/27/18 15:59 Last Admin: 01/26/18 21:15 Dose: 38 mls/hr Sodium Chloride (Sodium Chloride 0.9%) 1,000 mls @ 75 mls/hr IV .[id number] [facility] Stop: 01/27/18 16:48 Last Admin: 01/26/18 17:01 Dose: Not Given Latanoprost (Xalatan Opht) 1 drop OU HS [facility] Last Admin: 03/25/18 21:27 Dose: 1 drop Metoprolol Tartrate (Lopressor) 5 mg IVP Q12 [facility] Last Admin: 01/27/18 10:09 Dose: 5 mg Ondansetron HCl (Zofran Inj) 4 mg IVP Q6 PRN PRN Reason: Nausea/Vomiting Phenol/Menthol (Phenaseptic 1.4% Throat [place]) 1 spry MT Q2 PRN PRN Reason: Sore Throat - Labs Labs: 01/27/18 04:20 01/27/18 12:05 PT 11.7 Seconds (9.8-13.1) 01/20/18 06:25 INR 1.1 (0.9-1.2) 01/20/18 06:25 APTT 26.4 Seconds (25.6-37.1) 01/08/18 12:40 - Constitutional Appears: Non-toxic, No Acute Distress - Head Exam Head Exam: ATRAUMATIC, NORMAL INSPECTION, NORMOCEPHALIC - Eye Exam Eye Exam: EOMI, Normal appearance, PERRL Pupil Exam: NORMAL ACCOMODATION - ENT Exam ENT Exam: Mucous Membranes Moist, Normal Exam - Neck Exam Neck Exam: Full ROM, Normal Inspection - Respiratory Exam Respiratory Exam: Clear to Ausculation Bilateral, NORMAL BREATHING PATTERN. absent: Rales, Rhonchi, Wheezes - Cardiovascular Exam Cardiovascular Exam: REGULAR RHYTHM, RRR, +S1, +S2. absent: JVD - GI/Abdominal Exam GI & Abdominal Exam: Soft, Normal Bowel Sounds. absent: Distended, Guarding, Tenderness, Rebound Additional comments: midline surgical incision with whitley in place healing well minimal serosanguinous drainage from mid and lower portion of incision - Rectal Exam Rectal Exam: Deferred - Extremities Exam Extremities Exam: Full ROM, Normal Capillary Refill, Normal Inspection. absent : Pedal Edema - Back Exam Back Exam: NORMAL INSPECTION - Neurological Exam Neurological Exam: Alert, Awake, CN II-XII Intact, Oriented x3 - Psychiatric Exam Psychiatric exam: Normal Affect, Normal Mood - Skin Skin Exam: Dry, Pallor, Warm Assessment and Plan - Assessment and Plan (Free Text) Assessment: 87 yo female with a past medical history of arthritis and hypertension was recently admitted to [facility] on 11/25/2017 for Cholecystitis, underwent Lap tyesha and developed iatrogenic enterotomy. At home her surgical wound started draining some mucoid greenish material and she was advised to come in for evaluation by her surgeon. 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 Patient was admitted , started on IV Zosyn and Flagyl , kept NPO , and managed conservatively with NPO, TPN, and IV antibiotics. Wound cultures were reported as positive for Serratia Liquefaciens and antibiotics changed to Meropenem IV. Patient's drainage resolved and diet was upgraded to regular and she tolerated well and was sent home. 01/08/18 : returned with drainage from fistula again. CT abdomen showed enterocutaneous fistula with a tract better delineated on the current examination, well delineated by oral contrast material including umbilicus or periumbilical abdominal wall deformity. Conservative approach was tried again as per surgical team with NPO, TPN nutrition and IV antibiotics. Given that fistula did not close with conservative approach she underwent exlap with repair of enterocutaneous fistula and bowel resection 01/22 Today post op day 5 , doing well. 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 Will advance diet slowly as per surgery ( possible soft diet in AM ) Continue TPN via PICC line. Monitor electrolytes and replenish on TPN . Lipids daily Pain management PRN wound cx form fistula positive for E. Coli and Enterococcus faecali Off antibiotics . Received Meropenem and Vanco IV for 2 weeks ID on consult 2. Anemia, chronic stable pt refuses transfusion received IV venofer for 10 days Hgb today 7.8 feeling well with no dizziness , no palpitations, no tachycardia 3.UTI - treated Urine c/s positive for E coli and Enterococcus faecalis Received Meropenem and Vanco IV for 2 weeks 4. HTN BP stable monitor vitals cont Metoprolol 5 mg IV BID while NPO 5. Hyperlipidemia Hold statin for now due to total NPO status 6. Acute Renal Insufficiency probably secondary to volume depletion, resolved 7. Abn LFTs resolved 8. Electrolyte abnormality Monitor daily K, Mg and ph since patient is on TPN Ph 1.8 today. replace with TPN 9.DVT prophylaxis restart Lovenox
[2018-01-27] MEDS ORDERED: AMINO ACIDS IV ONE (16:00)
[2018-01-27] MEDS ORDERED: DEXTROSE IV ONE (16:00)
[2018-01-27] MEDS ORDERED: POTASSIUM PHOSPHATE IV ONE (16:00)
[2018-01-27] MEDS: Latanoprost 0.005% Opht SOUTION OU SCH (23:17)
[2018-01-28 06:01] LABS: MEAN CELL VOLUME 97.3 fl (81.0-99.0); MEAN CORPUSCULAR HEMOGLOBIN 33.2 pg (27.0-31.0); MEAN CORPUSCULAR HGB CONC 34.1 g/dL (33.0-37.0); RBC 2.11 Mil/uL (3.80-5.20); RED CELL DISTRIBUTION WIDTH 14.9 % (11.5-14.5); WHITE BLOOD COUNT 4.8 K/uL (4.8-10.8)
[2018-01-28 06:03] LABS: ALB/GLOB RATIO 0.8 (1.0-2.1); ALBUMIN 2.4 g/dL (3.5-5.0); ALT/SGPT 36 U/L (9-52); AST/SGOT 20 U/L (14-36); BLOOD UREA NITROGEN 16 mg/dl (7-17); GFR AFRICAN-AMERICAN > 60; GFR NON-AFRICAN AMERICAN > 60
--- NOTE | 2018-01-28 07:24 | CP.PCM.PN ---
Subjective - Date & Time of Evaluation Date of Evaluation: 01/28/18 Time of Evaluation: 09:00 - Subjective Subjective: patient seen and examined bedside. Feeling well. Hemodynamically stable, afebrile No acute issues overnight Ambulating with PT . Tolerated liquid diet Objective - Vital Signs/Intake and Output Vital Signs (last 24 hours): Temp Pulse Resp BP Pulse Ox 98.1 F 89 18 136/74 100 01/28/18 05:24 01/28/18 05:24 01/28/18 05:24 01/28/18 05:24 01/28/18 05:24 - Medications Medications: Current Medications Enoxaparin Sodium (Lovenox) 40 mg SC DAILY [facility] PRN Reason: Protocol Last Admin: 01/27/18 10:09 Dose: 40 mg Famotidine (Pepcid) 20 mg IVP Q12 [facility] Last Admin: 01/27/18 20:18 Dose: 20 mg Sodium Chloride (Sodium Chloride 0.9%) 1,000 mls @ 75 mls/hr IV .[id number] [facility] Last Admin: 01/27/18 17:13 Dose: 75 mls/hr Potassium Phosphate 10.5 mmole (/ Amino Acids) 1,003.5 mls @ 38 mls/hr IV .Q24H [facility] Stop: 01/28/18 15:59 Last Admin: 01/27/18 20:05 Dose: 38 mls/hr Latanoprost (Xalatan Opht) 1 drop OU HS [facility] Last Admin: 01/27/18 23:17 Dose: 1 drop Metoprolol Tartrate (Lopressor) 5 mg IVP Q12 [facility] Last Admin: 01/27/18 20:18 Dose: 5 mg Ondansetron HCl (Zofran Inj) 4 mg IVP Q6 PRN PRN Reason: Nausea/Vomiting Phenol/Menthol (Phenaseptic 1.4% Throat [place]) 1 spry MT Q2 PRN PRN Reason: Sore Throat - Labs Labs: 01/28/18 04:20 01/28/18 04:20 PT 11.7 Seconds (9.8-13.1) 01/20/18 06:25 INR 1.1 (0.9-1.2) 01/20/18 06:25 APTT 26.4 Seconds (25.6-37.1) 01/08/18 12:40 - Constitutional Appears: Non-toxic, No Acute Distress - Head Exam Head Exam: ATRAUMATIC, NORMAL INSPECTION, NORMOCEPHALIC - Eye Exam Eye Exam: PERRL - ENT Exam ENT Exam: Normal Exam - Neck Exam Neck Exam: Full ROM, Normal Inspection - Respiratory Exam Respiratory Exam: NORMAL BREATHING PATTERN. absent: Accessory Muscle Use, Prolonged Expiratory Phase, Rhonchi, Wheezes - Cardiovascular Exam Cardiovascular Exam: REGULAR RHYTHM, RRR, +S1, +S2. absent: JVD - GI/Abdominal Exam GI & Abdominal Exam: Soft. absent: Distended, Guarding, Tenderness, Rebound Additional comments: midline surgical incision with whtiley in place healing well - Rectal Exam Rectal Exam: Deferred - Extremities Exam Extremities Exam: Full ROM, Normal Capillary Refill, Normal Inspection. absent : Calf Tenderness, Pedal Edema - Back Exam Back Exam: NORMAL INSPECTION - Neurological Exam Neurological Exam: Alert, Awake, CN II-XII Intact, Oriented x3 - Psychiatric Exam Psychiatric exam: Normal Affect, Normal Mood - Skin Skin Exam: Dry, Pallor, Warm Assessment and Plan - Assessment and Plan (Free Text) Assessment: 87 yo female with a past medical history of arthritis and hypertension was recently admitted to [facility] on 11/25/2017 for Cholecystitis, underwent Lap tyesha and developed iatrogenic enterotomy. At home her surgical wound started draining some mucoid greenish material and she was advised to come in for evaluation by her surgeon. 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 Patient was admitted , started on IV Zosyn and Flagyl , kept NPO , and managed conservatively with NPO, TPN, and IV antibiotics. Wound cultures were reported as positive for Serratia Liquefaciens and antibiotics changed to Meropenem IV. Patient's drainage resolved and diet was upgraded to regular and she tolerated well and was sent home. 01/08/18 : returned with drainage from fistula again. CT abdomen showed enterocutaneous fistula with a tract better delineated on the current examination, well delineated by oral contrast material including umbilicus or periumbilical abdominal wall deformity. Conservative approach was tried again as per surgical team keeping patient NPO , TPN nutrition and IV antibiotics. Given that fistula did not close with conservative approach she underwent exploratory laparatomy with repair of enterocutaneous fistula and bowel resection 01/22 Today post op day 6 , doing well. Tolerating liquid diet and surgical wound healing well. aMBULATING WITH STEADYY GAIT WITH pt. 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 Will advance diet to regular today d/c TPN and lipids today Boone removed , voiding freely. Surgical wound healing well Ambulating with PT with steady gait wound cx form fistula were positive for E. Coli and Enterococcus faecali Off antibiotics . Received Meropenem and Vanco IV for 2 weeks 9 Id was consulted ) possible d/c in AM home if cleared by surgery 2. Anemia, chronic Hgb 7 pt refuses transfusion received IV venofer for 10 days Will restart Venofer again today feeling well with no dizziness , no palpitations, no tachycardia 3.UTI - treated Urine c/s positive for E coli and Enterococcus faecalis Received Meropenem and Vanco IV for 2 weeks 4. HTN BP stable monitor vitals cont Metoprolol 5 mg IV BID while NPO 5. Hyperlipidemia Hold statin for now due to total NPO status 6. Acute Renal Insufficiency probably secondary to volume depletion, resolved 7. Abn LFTs resolved 8. Electrolyte abnormality were replaced D/c TPN repeat BMP in AM 9.DVT prophylaxis on Lovenox
--- NOTE | 2018-01-28 07:50 | CP.PCM.PN ---
<CésarGardenia - Last Filed: 01/28/18 07:47> Subjective - Date & Time of Evaluation Date of Evaluation: 01/28/18 Time of Evaluation: 07:47 - Subjective Subjective: General Surgery - Dr. Lawler Pt S&E. DAISHA. Pt denies any complaints. She denies any abdominal pain, nausea or vomiting. She tolerated clear liquids last night and has been OOB to chair, voiding on her own after kruger removal, and passing flatus. Pt had BM Saturday night, no further BMs since. Objective - Vital Signs/Intake and Output Vital Signs (last 24 hours): Temp Pulse Resp BP Pulse Ox 98.1 F 89 18 136/74 100 01/28/18 05:24 01/28/18 05:24 01/28/18 05:24 01/28/18 05:24 01/28/18 05:24 - Medications Medications: Current Medications Enoxaparin Sodium (Lovenox) 40 mg SC DAILY [facility] PRN Reason: Protocol Last Admin: 01/27/18 10:09 Dose: 40 mg Famotidine (Pepcid) 20 mg IVP Q12 [facility] Last Admin: 01/27/18 20:18 Dose: 20 mg Sodium Chloride (Sodium Chloride 0.9%) 1,000 mls @ 75 mls/hr IV .[id number] [facility] Last Admin: 01/27/18 17:13 Dose: 75 mls/hr Potassium Phosphate 10.5 mmole (/ Amino Acids) 1,003.5 mls @ 38 mls/hr IV .Q24H ONE Stop: 01/28/18 15:59 Last Admin: 01/27/18 20:05 Dose: 38 mls/hr Latanoprost (Xalatan Opht) 1 drop OU HS [facility] Last Admin: 01/27/18 23:17 Dose: 1 drop Metoprolol Tartrate (Lopressor) 5 mg IVP Q12 [facility] Last Admin: 01/27/18 20:18 Dose: 5 mg Ondansetron HCl (Zofran Inj) 4 mg IVP Q6 PRN PRN Reason: Nausea/Vomiting Phenol/Menthol (Phenaseptic 1.4% Throat [place]) 1 spry MT Q2 PRN PRN Reason: Sore Throat - Labs Labs: 01/28/18 04:20 01/28/18 04:20 PT 11.7 Seconds (9.8-13.1) 01/20/18 06:25 INR 1.1 (0.9-1.2) 01/20/18 06:25 APTT 26.4 Seconds (25.6-37.1) 01/08/18 12:40 - Constitutional Appears: No Acute Distress - Head Exam Head Exam: ATRAUMATIC, NORMAL INSPECTION, NORMOCEPHALIC - Respiratory Exam Respiratory Exam: NORMAL BREATHING PATTERN. absent: Respiratory Distress - GI/Abdominal Exam GI & Abdominal Exam: Soft. absent: Distended, Guarding, Tenderness, Rebound Additional comments: incision c/d/i with whitley, small opening umbilical area with serous drainage which is expected - Neurological Exam Neurological Exam: Alert, Oriented x3 - Skin Skin Exam: Dry, Intact Assessment and Plan - Assessment and Plan (Free Text) Assessment: 87F s/p ex-lap with take down of EC fistula and small bowel resection POD#6 -Clear liquid diet, poss. advance to regular later today -Continue TPN, IVF -OOB to chair -Physical therapy for ambulation -Incentive Spirometer -DVT px Will discuss with Dr. Lawler <Michael Lawler - Last Filed: 01/28/18 11:54> Subjective - Date & Time of Evaluation Time of Evaluation: 11:00 - Subjective Subjective: Patient was seen and examined at the bedside. Passing flatus and had a small bowel movements, no abdominal pain, tolerating clear liquid diet. agree with resident's note above. Objective - Vital Signs/Intake and Output Vital Signs (last 24 hours): Temp Pulse Resp BP Pulse Ox 97.9 F 90 18 127/74 100 01/28/18 09:00 01/28/18 09:17 01/28/18 09:00 01/28/18 10:09 01/28/18 09:00 - Medications Medications: Current Medications Enoxaparin Sodium (Lovenox) 40 mg SC DAILY [facility] PRN Reason: Protocol Last Admin: 01/28/18 09:16 Dose: 40 mg Famotidine (Pepcid) 20 mg IVP Q12 [facility] Last Admin: 01/28/18 09:16 Dose: 20 mg Sodium Chloride (Sodium Chloride 0.9%) 1,000 mls @ 75 mls/hr IV .[id number] [facility] Last Admin: 01/27/18 17:13 Dose: 75 mls/hr Potassium Phosphate 10.5 mmole (/ Amino Acids) 1,003.5 mls @ 38 mls/hr IV .Q24H ONE Stop: 01/28/18 15:59 Last Admin: 01/27/18 20:05 Dose: 38 mls/hr Latanoprost (Xalatan Opht) 1 drop OU HS [facility] Last Admin: 01/27/18 23:17 Dose: 1 drop Metoprolol Tartrate (Lopressor) 5 mg IVP Q12 [facility] Last Admin: 01/28/18 09:17 Dose: 5 mg Ondansetron HCl (Zofran Inj) 4 mg IVP Q6 PRN PRN Reason: Nausea/Vomiting Phenol/Menthol (Phenaseptic 1.4% Throat [place]) 1 spry MT Q2 PRN PRN Reason: Sore Throat - Labs Labs: 01/28/18 04:20 01/28/18 04:20 PT 11.7 Seconds (9.8-13.1) 01/20/18 06:25 INR 1.1 (0.9-1.2) 01/20/18 06:25 APTT 26.4 Seconds (25.6-37.1) 01/08/18 12:40 Assessment and Plan - Assessment and Plan (Free Text) Plan: - Start regular diet - Repeat labs in am - Will follow
[2018-01-28] MEDS: Enoxaparin 40 mg Syringe SC SCH (09:16)
[2018-01-28] MEDS: Metoprolol 1 mg/ml Inj IVP SCH ×2 (09:17→21:41)
[2018-01-28] MEDS: Sodium Chloride 0.9% 1,000 ML IV SCH (21:04)
[2018-01-28] MEDS: Latanoprost 0.005% Opht SOUTION OU SCH (21:40)
[2018-01-29 06:07] LABS: HEMOGLOBIN 7.6 g/dL (12.0-16.0); MEAN CELL VOLUME 98.1 fl (81.0-99.0); MEAN CORPUSCULAR HEMOGLOBIN 32.4 pg (27.0-31.0); RBC 2.35 Mil/uL (3.80-5.20); RED CELL DISTRIBUTION WIDTH 14.8 % (11.5-14.5)
[2018-01-29 06:19] LABS: ALB/GLOB RATIO 0.8 (1.0-2.1); ALBUMIN 2.8 g/dL (3.5-5.0); ALT/SGPT 33 U/L (9-52); AST/SGOT 26 U/L (14-36); BLOOD UREA NITROGEN 15 mg/dl (7-17); CALCIUM 8.3 mg/dL (8.4-10.2); GFR AFRICAN-AMERICAN > 60; GFR NON-AFRICAN AMERICAN > 60
[2018-01-29] MEDS: Metoprolol 1 mg/ml Inj IVP SCH ×2 (09:43→21:12)
[2018-01-29] MEDS: Enoxaparin 40 mg Syringe SC SCH (09:46)
[2018-01-29] MEDS: Sodium Chloride 0.9% 1,000 ML IV SCH ×2 (09:48→21:00)
--- NOTE | 2018-01-29 10:16 | CP.PCM.PN ---
Subjective - Date & Time of Evaluation Date of Evaluation: 01/29/18 Time of Evaluation: 10:00 - Subjective Subjective: Patient was seen and examined at the bedside. Denies any abdominal pain. Tolerating regular diet, passing flatus and having bowel movements. Objective - Vital Signs/Intake and Output Vital Signs (last 24 hours): Temp Pulse Resp BP Pulse Ox 97.5 F L 94 H 20 150/80 98 01/29/18 08:15 01/29/18 09:43 01/29/18 08:15 01/29/18 09:43 01/29/18 08:15 Intake and Output: 01/29/18 01/29/18 06:59 18:59 Intake Total 627 Balance 627 - Medications Medications: Current Medications Enoxaparin Sodium (Lovenox) 40 mg SC DAILY [facility] PRN Reason: Protocol Last Admin: 01/29/18 09:46 Dose: 40 mg Famotidine (Pepcid) 20 mg IVP Q12 [facility] Last Admin: 01/29/18 09:42 Dose: 20 mg Sodium Chloride (Sodium Chloride 0.9%) 1,000 mls @ 75 mls/hr IV .[id number] [facility] Last Admin: 01/29/18 09:48 Dose: 75 mls/hr Iron Sucrose 100 mg/ Sodium (Chloride) 105 mls @ 105 mls/hr IVPB DAILY [facility] Last Admin: 01/28/18 16:21 Dose: 105 mls/hr Latanoprost (Xalatan Opht) 1 drop OU HS [facility] Last Admin: 01/28/18 21:40 Dose: 1 drop Metoprolol Tartrate (Lopressor) 5 mg IVP Q12 [facility] Last Admin: 01/29/18 09:43 Dose: 5 mg Ondansetron HCl (Zofran Inj) 4 mg IVP Q6 PRN PRN Reason: Nausea/Vomiting Phenol/Menthol (Phenaseptic 1.4% Throat [place]) 1 spry MT Q2 PRN PRN Reason: Sore Throat - Labs Labs: 01/29/18 04:20 01/29/18 04:20 PT 11.7 Seconds (9.8-13.1) 01/20/18 06:25 INR 1.1 (0.9-1.2) 01/20/18 06:25 APTT 26.4 Seconds (25.6-37.1) 01/08/18 12:40 - Constitutional Appears: Well, Non-toxic, No Acute Distress - Head Exam Head Exam: ATRAUMATIC, NORMAL INSPECTION, NORMOCEPHALIC - Eye Exam Eye Exam: EOMI, Normal appearance, PERRL Pupil Exam: NORMAL ACCOMODATION, PERRL - ENT Exam ENT Exam: Mucous Membranes Moist, Normal Exam - Neck Exam Neck Exam: Full ROM, Normal Inspection - Respiratory Exam Respiratory Exam: Clear to Ausculation Bilateral, NORMAL BREATHING PATTERN - Cardiovascular Exam Cardiovascular Exam: REGULAR RHYTHM, +S1, +S2 - GI/Abdominal Exam GI & Abdominal Exam: Soft, Normal Bowel Sounds Additional comments: NT, ND, soft, BS+, no rebound, no guarding, incision clean, no erythema, no drainage, whitley in place Assessment and Plan - Assessment and Plan (Free Text) Assessment: 87 y.o. female s/p Exp. lap Plan: - Continue diet - pain control - Insentive spirometry - DVT ppx - Stop TPN - Out of bed and ambulate
--- NOTE | 2018-01-29 10:37 | CP.PCM.PN ---
Subjective - Date & Time of Evaluation Date of Evaluation: 01/29/18 Time of Evaluation: 10:34 - Subjective Subjective: patient doing well eating ambulating without difficulty formed stools stable for discharge home from medical standpoint HD stable NAD. Objective - Vital Signs/Intake and Output Vital Signs (last 24 hours): Temp Pulse Resp BP Pulse Ox 97.5 F L 94 H 20 150/80 98 01/29/18 08:15 01/29/18 09:43 01/29/18 08:15 01/29/18 09:43 01/29/18 08:15 Intake and Output: 01/29/18 01/29/18 06:59 18:59 Intake Total 627 Balance 627 - Medications Medications: Current Medications Enoxaparin Sodium (Lovenox) 40 mg SC DAILY [facility] PRN Reason: Protocol Last Admin: 01/29/18 09:46 Dose: 40 mg Famotidine (Pepcid) 20 mg IVP Q12 [facility] Last Admin: 01/29/18 09:42 Dose: 20 mg Sodium Chloride (Sodium Chloride 0.9%) 1,000 mls @ 75 mls/hr IV .[id number] [facility] Last Admin: 01/29/18 09:48 Dose: 75 mls/hr Iron Sucrose 100 mg/ Sodium (Chloride) 105 mls @ 105 mls/hr IVPB DAILY [facility] Last Admin: 01/29/18 10:22 Dose: 105 mls/hr Latanoprost (Xalatan Opht) 1 drop OU HS [facility] Last Admin: 01/28/18 21:40 Dose: 1 drop Metoprolol Tartrate (Lopressor) 5 mg IVP Q12 [facility] Last Admin: 01/29/18 09:43 Dose: 5 mg Ondansetron HCl (Zofran Inj) 4 mg IVP Q6 PRN PRN Reason: Nausea/Vomiting Phenol/Menthol (Phenaseptic 1.4% Throat [place]) 1 spry MT Q2 PRN PRN Reason: Sore Throat - Labs Labs: 01/29/18 04:20 01/29/18 04:20 PT 11.7 Seconds (9.8-13.1) 01/20/18 06:25 INR 1.1 (0.9-1.2) 01/20/18 06:25 APTT 26.4 Seconds (25.6-37.1) 01/08/18 12:40 - Constitutional Appears: Non-toxic, No Acute Distress - Head Exam Head Exam: ATRAUMATIC, NORMOCEPHALIC - Eye Exam Eye Exam: EOMI, Normal appearance, PERRL - ENT Exam ENT Exam: Mucous Membranes Moist, Normal Oropharynx - Respiratory Exam Respiratory Exam: Clear to Ausculation Bilateral, NORMAL BREATHING PATTERN - Cardiovascular Exam Cardiovascular Exam: RRR, +S1, +S2 - GI/Abdominal Exam GI & Abdominal Exam: Soft, Normal Bowel Sounds. absent: Tenderness, Mass - Extremities Exam Extremities Exam: Normal Capillary Refill, Normal Inspection - Back Exam Back Exam: absent: CVA tenderness (L), CVA tenderness (R) - Neurological Exam Neurological Exam: Alert, Awake - Psychiatric Exam Psychiatric exam: Normal Affect, Normal Mood - Skin Skin Exam: Dry, Warm Assessment and Plan - Assessment and Plan (Free Text) Plan: 87 yo female with a past medical history of arthritis and hypertension was recently admitted to [facility] on 11/25/2017 for Cholecystitis, underwent Lap tyesha and developed iatrogenic enterotomy. At home her surgical wound started draining some mucoid greenish material and she was advised to come in for evaluation by her surgeon. 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 Patient was admitted , started on IV Zosyn and Flagyl , kept NPO , and managed conservatively with NPO, TPN, and IV antibiotics. Wound cultures were reported as positive for Serratia Liquefaciens and antibiotics changed to Meropenem IV. Patient's drainage resolved and diet was upgraded to regular and she tolerated well and was sent home. 01/08/18 : returned with drainage from fistula again. CT abdomen showed enterocutaneous fistula with a tract better delineated on the current examination, well delineated by oral contrast material including umbilicus or periumbilical abdominal wall deformity. Conservative approach was tried again as per surgical team keeping patient NPO , TPN nutrition and IV antibiotics. Given that fistula did not close with conservative approach she underwent exploratory laparatomy with repair of enterocutaneous fistula and bowel resection 01/22 Today post op day 7, doing well. Tolerating liquid diet and surgical wound healing well. AMBULATING WITH STEADY GAIT WITH PT. Patient to be discharged tomorrow. 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 Will advance diet to regular today d/c TPN and lipids today Boone removed , voiding freely. Surgical wound healing well Ambulating with PT with steady gait wound cx form fistula were positive for E. Coli and Enterococcus faecali Off antibiotics . Received Meropenem and Vanco IV for 2 weeks 9 Id was consulted ) possible d/c in AM home if cleared by surgery 2. Anemia, chronic Hgb 7 pt refuses transfusion received IV venofer for 10 days Will restart Venofer again today feeling well with no dizziness , no palpitations, no tachycardia 3.UTI - treated Urine c/s positive for E coli and Enterococcus faecalis Received Meropenem and Vanco IV for 2 weeks 4. HTN BP stable monitor vitals cont Metoprolol 5 mg IV BID while NPO 5. Hyperlipidemia Hold statin for now due to total NPO status 6. Acute Renal Insufficiency probably secondary to volume depletion, resolved 7. Abn LFTs resolved 8. Electrolyte abnormality were replaced D/c TPN repeat BMP in AM 9.DVT prophylaxis on Lovenox
[2018-01-29 11:45] VITALS: BMI 27.9
[2018-01-29] MEDS: Latanoprost 0.005% Opht SOUTION OU SCH (21:12)
[2018-01-30 05:58] LABS: ALB/GLOB RATIO 0.8 (1.0-2.1); ALT/SGPT 36 U/L (9-52); AST/SGOT 26 U/L (14-36); BLOOD UREA NITROGEN 13 mg/dl (7-17); CALCIUM 8.7 mg/dL (8.4-10.2); GFR AFRICAN-AMERICAN > 60; GFR NON-AFRICAN AMERICAN > 60
--- NOTE | 2018-01-30 07:29 | CP.PCM.PN ---
<LindseyGardenia sr - Last Filed: 01/30/18 07:26> Subjective - Date & Time of Evaluation Date of Evaluation: 01/30/18 Time of Evaluation: 07:26 - Subjective Subjective: General Surgery - DR. Lawler Pt S&E. DAISHA. Pt denies any abdominal pain. She is tolerating regular diet, passing flatus, having BM. She denies any nausea/vomiting/fevers/chills. She was OOB and ambulated within the room yesterday w/ PT. Objective - Vital Signs/Intake and Output Vital Signs (last 24 hours): Temp Pulse Resp BP Pulse Ox 98.0 F 93 H 18 125/73 96 01/30/18 05:27 01/30/18 05:27 01/30/18 05:27 01/30/18 05:27 01/30/18 05:27 - Medications Medications: Current Medications Enoxaparin Sodium (Lovenox) 40 mg SC DAILY [facility] PRN Reason: Protocol Last Admin: 01/29/18 09:46 Dose: 40 mg Famotidine (Pepcid) 20 mg IVP Q12 [facility] Last Admin: 01/29/18 21:15 Dose: 20 mg Sodium Chloride (Sodium Chloride 0.9%) 1,000 mls @ 75 mls/hr IV .[id number] [facility] Last Admin: 01/29/18 21:00 Dose: Not Given Iron Sucrose 100 mg/ Sodium (Chloride) 105 mls @ 105 mls/hr IVPB DAILY [facility] Last Admin: 01/29/18 10:22 Dose: 105 mls/hr Latanoprost (Xalatan Opht) 1 drop OU HS [facility] Last Admin: 01/29/18 21:12 Dose: 1 drop Metoprolol Tartrate (Lopressor) 5 mg IVP Q12 [facility] Last Admin: 01/29/18 21:12 Dose: 5 mg Ondansetron HCl (Zofran Inj) 4 mg IVP Q6 PRN PRN Reason: Nausea/Vomiting Phenol/Menthol (Phenaseptic 1.4% Throat [place]) 1 spry MT Q2 PRN PRN Reason: Sore Throat - Labs Labs: 01/29/18 04:20 01/30/18 04:25 PT 11.7 Seconds (9.8-13.1) 01/20/18 06:25 INR 1.1 (0.9-1.2) 01/20/18 06:25 APTT 26.4 Seconds (25.6-37.1) 01/08/18 12:40 - Constitutional Appears: Well, No Acute Distress - Head Exam Head Exam: ATRAUMATIC, NORMAL INSPECTION, NORMOCEPHALIC - Eye Exam Eye Exam: Normal appearance - Respiratory Exam Respiratory Exam: NORMAL BREATHING PATTERN. absent: Respiratory Distress - GI/Abdominal Exam GI & Abdominal Exam: Soft. absent: Distended, Guarding, Tenderness, Rebound Additional comments: inciison c/d/i with whitley, dressing changed - Neurological Exam Neurological Exam: Alert, Oriented x3 - Psychiatric Exam Psychiatric exam: Normal Affect, Normal Mood - Skin Skin Exam: Dry, Intact Assessment and Plan - Assessment and Plan (Free Text) Assessment: 87f s/p Ex-lap and small bowel resection, POD 8 Plan: - Continue regular diet - Incentive Spirometry - DVT Px - OOB and Ambulate DW Dr Lawler <Michael Lawler - Last Filed: 01/30/18 10:17> Subjective - Date & Time of Evaluation Time of Evaluation: 10:00 - Subjective Subjective: Patient was seen and examined at the bedside. Agree with resident's note above. Objective - Vital Signs/Intake and Output Vital Signs (last 24 hours): Temp Pulse Resp BP Pulse Ox 98.1 F 93 H 18 131/83 97 01/30/18 08:00 01/30/18 10:16 01/30/18 08:00 01/30/18 10:16 01/30/18 08:00 - Medications Medications: Current Medications Famotidine (Pepcid) 20 mg IVP Q12 [facility] Last Admin: 01/29/18 21:15 Dose: 20 mg Sodium Chloride (Sodium Chloride 0.9%) 1,000 mls @ 75 mls/hr IV .[id number] [facility] Last Admin: 01/29/18 21:00 Dose: Not Given Iron Sucrose 100 mg/ Sodium (Chloride) 105 mls @ 105 mls/hr IVPB DAILY [facility] Last Admin: 01/29/18 10:22 Dose: 105 mls/hr Latanoprost (Xalatan Opht) 1 drop OU HS [facility] Last Admin: 01/29/18 21:12 Dose: 1 drop Metoprolol Tartrate (Lopressor) 5 mg IVP Q12 [facility] Last Admin: 01/30/18 10:16 Dose: 5 mg Ondansetron HCl (Zofran Inj) 4 mg IVP Q6 PRN PRN Reason: Nausea/Vomiting Phenol/Menthol (Phenaseptic 1.4% Throat [place]) 1 spry MT Q2 PRN PRN Reason: Sore Throat - Labs Labs: 01/29/18 04:20 01/30/18 04:25 PT 11.7 Seconds (9.8-13.1) 01/20/18 06:25 INR 1.1 (0.9-1.2) 01/20/18 06:25 APTT 26.4 Seconds (25.6-37.1) 01/08/18 12:40
[2018-01-30] MEDS: Enoxaparin 40 mg Syringe SC SCH (10:16)
[2018-01-30] MEDS: Metoprolol 1 mg/ml Inj IVP SCH ×2 (10:16→21:59)
--- NOTE | 2018-01-30 14:01 | CP.PCM.PN ---
Subjective - Date & Time of Evaluation Date of Evaluation: 01/30/18 Time of Evaluation: 13:59 - Subjective Subjective: doing well tolerating diet ambulating well dc home tomorrow Objective - Vital Signs/Intake and Output Vital Signs (last 24 hours): Temp Pulse Resp BP Pulse Ox 98.6 F 93 H 18 145/72 98 01/30/18 12:00 01/30/18 12:00 01/30/18 12:00 01/30/18 12:00 01/30/18 12:00 Vitals Reviewed GEN: WDWN, alert, cooperative HEENT: NCAT, PERRL, EOMI HEART: RRR, +S1S2, NO MRG LUNG: CTAB, NO WRR ABD: soft, NT, ND, No HSM, No masses EXT: normal pedal pulses, normal capillary refill NEURO: awake, alert, no focal deficits SKIN: warm, dry PSYCH: normal mood, normal affect - Medications Medications: Current Medications Famotidine (Pepcid) 20 mg IVP Q12 [facility] Last Admin: 01/29/18 21:15 Dose: 20 mg Iron Sucrose 100 mg/ Sodium (Chloride) 105 mls @ 105 mls/hr IVPB DAILY [facility] Last Admin: 01/30/18 10:18 Dose: 105 mls/hr Latanoprost (Xalatan Opht) 1 drop OU HS [facility] Last Admin: 01/29/18 21:12 Dose: 1 drop Metoprolol Tartrate (Lopressor) 5 mg IVP Q12 [facility] Last Admin: 01/30/18 10:16 Dose: 5 mg Ondansetron HCl (Zofran Inj) 4 mg IVP Q6 PRN PRN Reason: Nausea/Vomiting Phenol/Menthol (Phenaseptic 1.4% Throat [place]) 1 spry MT Q2 PRN PRN Reason: Sore Throat - Labs Labs: 01/29/18 04:20 01/30/18 04:25 PT 11.7 Seconds (9.8-13.1) 01/20/18 06:25 INR 1.1 (0.9-1.2) 01/20/18 06:25 APTT 26.4 Seconds (25.6-37.1) 01/08/18 12:40 Assessment and Plan - Assessment and Plan (Free Text) Plan: 87 yo female with a past medical history of arthritis and hypertension was recently admitted to [facility] on 11/25/2017 for Cholecystitis, underwent Lap tyesha and developed iatrogenic enterotomy. At home her surgical wound started draining some mucoid greenish material and she was advised to come in for evaluation by her surgeon. 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 Patient was admitted , started on IV Zosyn and Flagyl , kept NPO , and managed conservatively with NPO, TPN, and IV antibiotics. Wound cultures were reported as positive for Serratia Liquefaciens and antibiotics changed to Meropenem IV. Patient's drainage resolved and diet was upgraded to regular and she tolerated well and was sent home. 01/08/18 : returned with drainage from fistula again. CT abdomen showed enterocutaneous fistula with a tract better delineated on the current examination, well delineated by oral contrast material including umbilicus or periumbilical abdominal wall deformity. Conservative approach was tried again as per surgical team keeping patient NPO , TPN nutrition and IV antibiotics. Given that fistula did not close with conservative approach she underwent exploratory laparatomy with repair of enterocutaneous fistula and bowel resection 01/22 Today post op day 7, doing well. Tolerating liquid diet and surgical wound healing well. AMBULATING WITH STEADY GAIT WITH PT. Patient to be discharged tomorrow. 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 Surgical wound healing well Ambulating with PT with steady gait wound cx form fistula were positive for E. Coli and Enterococcus faecali Off antibiotics . Received Meropenem and Vanco IV for 2 weeks 9 Id was consulted ) d/c in AM home if cleared by surgery 2. Anemia, chronic Hgb 7 pt refuses transfusion received IV venofer for 10 days STABLE feeling well with no dizziness , no palpitations, no tachycardia 3.UTI - treated Urine c/s positive for E coli and Enterococcus faecalis Received Meropenem and Vanco IV for 2 weeks 4. HTN BP stable monitor vitals cont Metoprolol 5 mg IV BID while NPO 5. Hyperlipidemia Hold statin for now due to total NPO status 6. Acute Renal Insufficiency probably secondary to volume depletion, resolved 7. Abn LFTs resolved 8. Electrolyte abnormality were replaced D/c TPN repeat BMP in AM 9.DVT prophylaxis on Lovenox
[2018-01-30 17:06] LABS: HEMOGLOBIN 7.7 g/dL (12.0-16.0); MEAN CELL VOLUME 98.6 fl (81.0-99.0); MEAN CORPUSCULAR HEMOGLOBIN 32.1 pg (27.0-31.0); MEAN CORPUSCULAR HGB CONC 32.5 g/dL (33.0-37.0); RBC 2.4 Mil/uL (3.80-5.20); WHITE BLOOD COUNT 6.5 K/uL (4.8-10.8)
[2018-01-30] MEDS: Latanoprost 0.005% Opht SOUTION OU SCH (21:59)
[2018-01-31 05:43] LABS: HEMOGLOBIN 7.1 g/dL (12.0-16.0); MEAN CELL VOLUME 96.8 fl (81.0-99.0); MEAN CORPUSCULAR HEMOGLOBIN 32.8 pg (27.0-31.0); MEAN CORPUSCULAR HGB CONC 33.9 g/dL (33.0-37.0); RBC 2.17 Mil/uL (3.80-5.20); RED CELL DISTRIBUTION WIDTH 15.3 % (11.5-14.5); WHITE BLOOD COUNT 5.3 K/uL (4.8-10.8)
[2018-01-31 06:07] LABS: BLOOD UREA NITROGEN 13 mg/dl (7-17); CALCIUM 8.6 mg/dL (8.4-10.2); GFR AFRICAN-AMERICAN > 60; GFR NON-AFRICAN AMERICAN 60
--- NOTE | 2018-01-31 07:38 | CP.PCM.PN ---
<Darleen Howell - Last Filed: 01/31/18 07:35> Subjective - Date & Time of Evaluation Date of Evaluation: 01/31/18 Time of Evaluation: 07:35 - Subjective Subjective: General Surgery Progress Note - Dr. Lawler Patient is seen and evaluated at bedside this morning. Pt denies any abdominal pain at this time; reports that she feels itchy. Denies of any acute overnight events. Reports that she is tolerating regular diet, passing flatus, having BM. She denies any nausea/vomiting/fevers/chills. She was seen ambulating in her room at the time of the visit. Objective - Vital Signs/Intake and Output Vital Signs (last 24 hours): Temp Pulse Resp BP Pulse Ox 97.5 F L 93 H 18 147/77 99 01/31/18 05:27 01/31/18 05:27 01/31/18 05:27 01/31/18 05:27 01/31/18 05:27 - Medications Medications: Current Medications Famotidine (Pepcid) 20 mg IVP Q12 [facility] Last Admin: 01/30/18 21:59 Dose: 20 mg Iron Sucrose 100 mg/ Sodium (Chloride) 105 mls @ 105 mls/hr IVPB DAILY [facility] Last Admin: 01/30/18 10:18 Dose: 105 mls/hr Latanoprost (Xalatan Opht) 1 drop OU HS [facility] Last Admin: 01/30/18 21:59 Dose: 1 drop Metoprolol Tartrate (Lopressor) 5 mg IVP Q12 [facility] Last Admin: 01/30/18 21:59 Dose: 5 mg Ondansetron HCl (Zofran Inj) 4 mg IVP Q6 PRN PRN Reason: Nausea/Vomiting Phenol/Menthol (Phenaseptic 1.4% Throat [place]) 1 spry MT Q2 PRN PRN Reason: Sore Throat - Labs Labs: 01/31/18 05:00 01/31/18 05:00 PT 11.7 Seconds (9.8-13.1) 01/20/18 06:25 INR 1.1 (0.9-1.2) 01/20/18 06:25 APTT 26.4 Seconds (25.6-37.1) 01/08/18 12:40 - Constitutional Appears: Well, Non-toxic, No Acute Distress - Head Exam Head Exam: ATRAUMATIC - Eye Exam Eye Exam: Normal appearance - ENT Exam ENT Exam: Normal Exam - Neck Exam Neck Exam: Normal Inspection - Respiratory Exam Respiratory Exam: NORMAL BREATHING PATTERN - GI/Abdominal Exam GI & Abdominal Exam: Soft. absent: Rigid, Hernia, Mass Additional comments: Dressing at the surgical site is c/d/i. - Rectal Exam Rectal Exam: Deferred - Extremities Exam Extremities Exam: Full ROM, Normal Inspection. absent: Calf Tenderness - Back Exam Back Exam: NORMAL INSPECTION. absent: tenderness - Neurological Exam Neurological Exam: Alert, Awake, Normal Gait, Oriented x3 - Psychiatric Exam Psychiatric exam: Normal Affect, Normal Mood - Skin Skin Exam: Intact, Normal Color, Warm Assessment and Plan - Assessment and Plan (Free Text) Assessment: 87 F s/p Ex-lap and small bowel resection, POD 9 Plan: - Continue regular diet - Incentive Spirometry - DVT Px - OOB and Ambulate Further recs discuss with Dr. Lawler <Michael Lawler - Last Filed: 01/31/18 10:05> Subjective - Date & Time of Evaluation Time of Evaluation: 09:35 - Subjective Subjective: Patient was seen and examined at the bedside. Agree with resident's note above. Objective - Vital Signs/Intake and Output Vital Signs (last 24 hours): Temp Pulse Resp BP Pulse Ox 98 F 96 H 20 161/85 H 98 01/31/18 08:00 01/31/18 08:00 01/31/18 08:00 01/31/18 08:00 01/31/18 08:00 - Medications Medications: Current Medications Atorvastatin Calcium (Lipitor) 10 mg PO HS [facility] Iron Sucrose 100 mg/ Sodium (Chloride) 105 mls @ 105 mls/hr IVPB DAILY [facility] Last Admin: 01/30/18 10:18 Dose: 105 mls/hr Latanoprost (Xalatan Opht) 1 drop OU HS [facility] Last Admin: 01/30/18 21:59 Dose: 1 drop Metoprolol Succinate (Toprol Xl) 50 mg PO DAILY [facility] Ondansetron HCl (Zofran Inj) 4 mg IVP Q6 PRN PRN Reason: Nausea/Vomiting Pantoprazole Sodium (Protonix Ec Tab) 40 mg PO DAILY [facility] Phenol/Menthol (Phenaseptic 1.4% Throat [place]) 1 spry MT Q2 PRN PRN Reason: Sore Throat - Labs Labs: 01/31/18 05:00 01/31/18 05:00 PT 11.7 Seconds (9.8-13.1) 01/20/18 06:25 INR 1.1 (0.9-1.2) 01/20/18 06:25 APTT 26.4 Seconds (25.6-37.1) 01/08/18 12:40 - GI/Abdominal Exam Additional comments: soft, NT, ND, BS+, no rebound, no guarding, incision clean, no erythema, no drainage, whitley in place Assessment and Plan - Assessment and Plan (Free Text) Plan: - Continue diet - Insentive spirometry - DVT ppx - Patient is clear for discharge from the general surgery stand point - Patient will follow up with me in the office in 10 days for post-op visit
[2018-01-31 08:54] VITALS: RESP 20
[2018-01-31] MEDS ORDERED: Metoprolol Succinate 50 mg XL Tab PO SCH (09:00)
[2018-01-31] MEDS ORDERED: Pantoprazole 40 mg EC Tab PO SCH (09:00)
--- NOTE | 2018-01-31 09:58 | CP.PCM.DIS ---
Provider - Provider Date of Admission: 01/08/18 16:00 Attending physician: Darshan Cronin DO Primary care physician: Dr Alejandra Consults: Surgery : Dr Lawler ID : DR [id number] Time Spent in preparation of Discharge (in minutes): 35 Diagnosis - Discharge Diagnosis (1) Enterocutaneous fistula Status: Acute (2) Urinary tract infection Status: Acute (3) Chronic anemia Status: Chronic (4) HTN (hypertension) Status: Chronic Hospital Course - Lab Results Lab Results: Micro Results 01/08/18 13:00 Blood-Venous Blood Culture - Final NO GROWTH AFTER 5 DAYS 01/08/18 12:30 Blood-Venous Blood Culture - Final NO GROWTH AFTER 5 DAYS 01/08/18 14:27 Urine,Clean Catch Urine Culture - Final Escherichia Coli Enterococcus Faecalis 01/08/18 13:27 Abdomen Gram Stain - Final 01/08/18 13:27 Abdomen Wound Culture - Final Escherichia Coli Enterococcus Faecalis Most Recent Lab Values WBC 5.3 K/uL (4.8-10.8) 01/31/18 05:00 RBC 2.17 Mil/uL (3.80-5.20) L 01/31/18 05:00 Hgb 7.1 g/dL (12.0-16.0) L 01/31/18 05:00 Hct 21.0 % (34.0-47.0) L 01/31/18 05:00 MCV 96.8 fl (81.0-99.0) 01/31/18 05:00 MCH 32.8 pg (27.0-31.0) H 01/31/18 05:00 MCHC 33.9 g/dL (33.0-37.0) 01/31/18 05:00 RDW 15.3 % (11.5-14.5) H 01/31/18 05:00 Plt Count 256 K/uL (130-400) 01/31/18 05:00 MPV 8.8 fl (7.2-11.7) 01/27/18 04:20 Neut % (Auto) 66.7 % (50.0-75.0) 01/27/18 04:20 Lymph % (Auto) 20.9 % (20.0-40.0) 01/27/18 04:20 [place] % (Auto) 9.0 % (0.0-10.0) 01/27/18 04:20 Eos % (Auto) 2.9 % (0.0-4.0) 01/27/18 04:20 Baso % (Auto) 0.5 % (0.0-2.0) 01/27/18 04:20 Neut # (Auto) 3.5 K/uL (1.8-7.0) 01/27/18 04:20 Lymph # (Auto) 1.1 K/uL (1.0-4.3) 01/27/18 04:20 [place] # (Auto) 0.5 K/uL (0.0-0.8) 01/27/18 04:20 Eos # (Auto) 0.1 K/uL (0.0-0.7) 01/27/18 04:20 Baso # (Auto) 0.0 K/uL (0.0-0.2) 01/27/18 04:20 Neutrophils % (Manual) 91 % (42-75) H 01/23/18 04:22 Lymphocytes % (Manual) 5 % (20-50) L 01/23/18 04:22 Monocytes % (Manual) 4 % (0-10) 01/23/18 04:22 Toxic Granulation Present 01/23/18 04:22 Platelet Estimate Normal (NORMAL) 01/23/18 04:22 Hypochromasia (manual) Moderate 01/23/18 04:22 Anisocytosis (manual) Slight 01/23/18 04:22 Macrocytosis (manual) Slight 01/23/18 04:22 Ovalocytes Slight 01/23/18 04:22 Schistocytes Slight 01/23/18 04:22 PT 11.7 Seconds (9.8-13.1) 01/20/18 06:25 INR 1.1 (0.9-1.2) 01/20/18 06:25 APTT 26.4 Seconds (25.6-37.1) 01/08/18 12:40 pO2 14 mm/Hg (30-55) L 01/08/18 12:35 VBG pH 7.36 (7.32-7.43) 01/08/18 12:35 VBG pCO2 53 mmHg (40-60) 01/08/18 12:35 VBG HCO3 25.2 mmol/L 01/08/18 12:35 VBG Total CO2 31.5 mmol/L (22-28) H 01/08/18 12:35 VBG O2 Sat (Calc) 23.5 % (40-65) L 01/08/18 12:35 VBG Base Excess 3.2 mmol/L (0.0-2.0) H 01/08/18 12:35 VBG Potassium 4.0 mmol/L (3.6-5.2) 01/08/18 12:35 Sodium 136.0 mmol/L (132-148) 01/08/18 12:35 Chloride 106.0 mmol/L (98-107) 01/08/18 12:35 Glucose 117 mg/dL (65-105) H 01/08/18 12:35 Lactate 1.1 mmol/L (0.7-2.1) 01/08/18 12:35 FiO2 21.0 % 01/08/18 12:35 Sodium 142 mmol/l (132-148) 01/31/18 05:00 Potassium 3.9 MMOL/L (3.6-5.0) 01/31/18 05:00 Chloride 103 mmol/L (98-107) 01/31/18 05:00 Carbon Dioxide 30 mmol/L (22-30) 01/31/18 05:00 Anion Gap 13 (10-20) 01/31/18 05:00 BUN 13 mg/dl (7-17) 01/31/18 05:00 Creatinine 0.9 mg/dl (0.7-1.2) 01/31/18 05:00 Est GFR ( Amer) > 60 01/31/18 05:00 Est GFR (Non-Af Amer) 60 01/31/18 05:00 POC Glucose (mg/dL) 133 mg/dL (65-110) H 01/30/18 10:40 Random Glucose 100 mg/dL (65-105) 01/31/18 05:00 Calcium 8.6 mg/dL (8.4-10.2) 01/31/18 05:00 Phosphorus 2.4 mg/dl (2.5-4.5) L 01/29/18 04:20 Magnesium 1.6 MG/DL (1.6-2.3) 01/29/18 04:20 Iron 16 ug/dL (37-170) L 01/08/18 14:26 TIBC 197 ug/dL (250-450) L 01/08/18 14:26 % Saturation 8 % (20-55) L 01/08/18 14:26 Total Bilirubin 0.5 mg/dl (0.2-1.3) 01/30/18 04:25 Direct Bilirubin 0.3 mg/ml (0.0-0.4) 01/24/18 05:30 AST 26 U/L (14-36) 01/30/18 04:25 ALT 36 U/L (9-52) 01/30/18 04:25 Alkaline Phosphatase 105 U/L (38-126) 01/30/18 04:25 Total Protein 6.7 G/DL (6.3-8.2) 01/30/18 04:25 Albumin 3.0 g/dL (3.5-5.0) L 01/30/18 04:25 Globulin 3.7 gm/dL (2.2-3.9) 01/30/18 04:25 Albumin/Globulin Ratio 0.8 (1.0-2.1) L 01/30/18 04:25 Prealbumin 12.4 mg/dL (17.6-36.0) L 01/08/18 13:02 Triglycerides 180 mg/DL (0-149) H D 01/24/18 05:30 Cholesterol 150 mg/dL (0-199) 01/18/18 05:30 LDL Cholesterol Direct 47 mg/dL (0-129) 01/18/18 05:30 HDL Cholesterol 19 MG/DL (30-70) L 01/18/18 05:30 Phospholipids 183 mg/dL (151-264) 01/16/18 06:20 Venous Blood Potassium 4.0 mmol/L (3.6-5.2) 01/08/18 12:35 Urine Color Yellow (YELLOW) 01/15/18 19:55 Urine Clarity Clear (Clear) 01/15/18 19:55 Urine pH 7.0 (5.0-8.0) 01/15/18 19:55 Ur Specific [place] 1.010 (1.003-1.030) 01/15/18 19:55 Urine Protein Negative mg/dL (NEGATIVE) 01/15/18 19:55 Urine Glucose (UA) 50 mg/dL (Normal) 01/15/18 19:55 Urine Ketones Negative mg/dL (NEGATIVE) 01/15/18 19:55 Urine Blood Negative (NEGATIVE) 01/15/18 19:55 Urine Nitrate Negative (NEGATIVE) 01/15/18 19:55 Urine Bilirubin Negative (NEGATIVE) 01/15/18 19:55 Urine Urobilinogen 0.2-1.0 mg/dL (0.2-1.0) 01/15/18 19:55 Ur Leukocyte Esterase Neg Elva/uL (Negative) 01/15/18 19:55 Urine RBC (Auto) 1 /hpf (0-3) 01/15/18 19:55 Urine Microscopic WBC 1 /hpf (0-5) 01/15/18 19:55 Ur Squamous Epith Cells < 1 /hpf (0-5) 01/15/18 19:55 Urine Bacteria Occ (<OCC) H 01/08/18 14:27 Hyaline Casts >20 /hpf (0-2) H 01/08/18 14:27 Vancomycin Trough 20.2 ug/mL (5.0-10.0) H 01/24/18 05:30 Blood Type O POSITIVE 01/21/18 16:05 Antibody Screen Negative 01/21/18 16:05 Crossmatch See Detail 01/21/18 16:05 BBK History Checked Patient has bt 01/21/18 16:05 - Hospital Course Hospital Course: 87 yo female with a past medical history of arthritis and hypertension was recently admitted to [facility] on 11/25/2017 for Cholecystitis, underwent Lap tyesha and developed iatrogenic enterotomy. At home her surgical wound started draining some mucoid greenish material and she was advised to come in for evaluation by her surgeon. 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 Patient was admitted , started on IV Zosyn and Flagyl , kept NPO , and managed conservatively with NPO, TPN, and IV antibiotics. Wound cultures were reported as positive for Serratia Liquefaciens and antibiotics changed to Meropenem IV. Patient's drainage resolved and diet was upgraded to regular and she tolerated well and was sent home. 01/08/18 : returned with drainage from fistula again. CT abdomen showed enterocutaneous fistula with a tract better delineated on the current examination, well delineated by oral contrast material including umbilicus or periumbilical abdominal wall deformity. Conservative approach was tried again as per surgical team keeping patient NPO , TPN nutrition and IV antibiotics. Given that fistula did not close with conservative approach she underwent exploratory laparatomy with repair of enterocutaneous fistula and bowel resection 01/22 Doing well, Tolerating Regular diet and surgical wound healing well. Ambulating with steady gait . Claered for discharge by Surgery. 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 Surgical wound healing well Ambulating with PT with steady gait wound cx form fistula were positive for E. Coli and Enterococcus faecali Off antibiotics . Received Meropenem and Vanco IV for 2 weeks 9 Id was consulted ) d/c home ff up with Dr Lawler in 1 wk for removal of stitches Wound care with Betadine daily 2. Anemia, chronic Hgb 7 pt refuses transfusion received IV venofer STABLE feeling well with no dizziness , no palpitations, no tachycardia 3.UTI - treated Urine c/s positive for E coli and Enterococcus faecalis Received Meropenem and Vanco IV for 2 weeks 4. HTN BP stable monitor vitals cont Metoprolol daily 5. Hyperlipidemia cont statin 6. Acute Renal Insufficiency probably secondary to volume depletion, resolved 7. Abn LFTs resolved 8. Electrolyte abnormality replaced - now normal 9.DVT prophylaxis on Lovenox Discharge Exam - Head Exam Head Exam: ATRAUMATIC, NORMAL INSPECTION, NORMOCEPHALIC - Eye Exam Eye Exam: EOMI, Normal appearance, PERRL Pupil Exam: NORMAL ACCOMODATION - ENT Exam ENT Exam: Mucous Membranes Moist, Normal External Ear Exam - Neck Exam Neck exam: Full Rom - Respiratory Exam Respiratory Exam: NORMAL BREATHING PATTERN. absent: Respiratory Distress - Cardiovascular Exam Cardiovascular Exam: REGULAR RHYTHM, +S1, +S2 - GI/Abdominal Exam GI & Abdominal Exam: Normal Bowel Sounds, Soft. absent: Tenderness Additional comments: whitley intact wound well coaptated - Extremities Exam Extremities exam: full ROM, normal capillary refill, pedal pulses present Additional comments: negative calf tenderness - Back Exam Back exam: absent: CVA tenderness (L), CVA tenderness (R) - Neurological Exam Neurological exam: Alert, CN II-XII Intact, Normal Gait, Oriented x3, Reflexes Normal - Psychiatric Exam Psychiatric exam: Normal Affect, Normal Mood - Skin Skin Exam: Dry, Normal Color, Warm Discharge Plan - Discharge Medications Prescriptions: Hydrocortisone 1% Oint [Cortizone 1% Oint] 1 appl TP BID #1 tube Tramadol HCl [Ultram] 50 mg PO Q8 PRN #15 tablet PRN Reason: Pain, Moderate (4-7) - Follow Up Plan Condition: GOOD Disposition: HOME/ ROUTINE Additional Instructions: f up with Dr Lawler in 1 wk for removal of stitches ff up with PMD ronnie Wound Care with Betadine daily ( as rec by Wound RN) Referrals: Michael Lawler MD [Staff Provider] - Jay Alejandra MD [Family Provider] -
[2018-01-31 15:46] VITALS: BP 139/71; PULSE 105; TEMP 98.7; O2SAT 97
== END 2018-01-31 18:15 | disposition home or self-care (01) | DRG 908 ==
LOC: H.ER 11:06 → H.ERHOLD 16:00 → H.TEL 19:01 → H.MEDSURG1 01-11 22:17 → H.TEL 01-22 15:27
PROVIDERS: ADMIT Internal Medicine; ATTEND Internal Medicine
PROC: 02HV33Z Insertion of Infusion Device into Superior Vena Cava, Percutaneous Approach (ICD-10-PCS; principal; 2018-01-09)
PROC: 3E0436Z Introduction of Nutritional Substance into Central Vein, Percutaneous Approach (ICD-10-PCS; 2018-01-14)
PROC: 0DT80ZZ Resection of Small Intestine, Open Approach (ICD-10-PCS; 2018-01-22)
PROC: 0DNW0ZZ Release Peritoneum, Open Approach (ICD-10-PCS; 2018-01-22)
PROC: 0JQ80ZZ Repair Abdomen Subcutaneous Tissue and Fascia, Open Approach (ICD-10-PCS; 2018-01-22)
DX: T81.83XA Persistent postprocedural fistula, initial encounter (principal); K63.2 Fistula of intestine; K94.09 Other complications of colostomy; N39.0 Urinary tract infection, site not specified; Z88.0 Allergy status to penicillin; F32.9 Major depressive disorder, single episode, unspecified; I10 Essential (primary) hypertension; E78.00 Pure hypercholesterolemia, unspecified; E78.5 Hyperlipidemia, unspecified; E86.9 Volume depletion, unspecified; N28.9 Disorder of kidney and ureter, unspecified; D50.9 Iron deficiency anemia, unspecified; D63.8 Anemia in other chronic diseases classified elsewhere; M19.90 Unspecified osteoarthritis, unspecified site; Y83.8 Other surgical procedures as the cause of abnormal reaction of the patient, or of later complication, without mention of misadventure at the time of the procedure; B96.20 Unspecified Escherichia coli [E. coli] as the cause of diseases classified elsewhere; B95.2 Enterococcus as the cause of diseases classified elsewhere; R79.89 Other specified abnormal findings of blood chemistry; K66.0 Peritoneal adhesions (postprocedural) (postinfection)

== ENCOUNTER 2018-06-29 11:58 | Emergency (ER) | payer MEDICARE, OTHER ==
[2018-06-29 13:06] VITALS: TEMP 97.7; BMI 22.4
--- NOTE | 2018-06-29 13:22 | ED PDOC ---
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 Otherwise patient reports no fever, chills, cough , URI, tinnitus, dizziness, headache, rash, neck pain, shortness of breath, dyspnea, chest pain. Has no additional complaints. Past Medical History Vital Signs: Last Vital Signs Temp 97.7 F 06/29/18 12:52 Pulse 58 L 06/29/18 17:11 Resp 16 06/29/18 12:52 BP 225/103 H 06/29/18 17:11 Pulse Ox 97 06/29/18 17:07 - Medical History PMH: Anemia, Arthritis, Depression, HTN, Hypercholesterolemia Denies: Chronic Kidney Disease - Surgical History Surgical History: Appendectomy, Cholecystectomy - Family History Family History: States: Unknown Family Hx - Home Medications Home Medications: Ambulatory Orders Medication Instructions Recorded Metoprolol Succinate XL [Toprol XL] 50 mg PO DAILY 12/21/17 Pantoprazole [Protonix EC Tab] 40 mg PO DAILY 12/21/17 Bimatoprost [Lumigan] 1 drop EACHEYE HS 01/08/18 Simvastatin [Zocor] 20 mg PO HS 01/08/18 Hydrocortisone 1% Oint [Cortizone 1 appl TP BID #1 tube 01/31/18 1% Oint] Tramadol HCl [Ultram] 50 mg PO Q8 PRN #15 tablet 01/31/18 - Allergies Allergies/Adverse Reactions: Allergies Allergy/AdvReac Type Severity Reaction Status Date / Time No Known Allergies Allergy Verified 06/29/18 13:10 Review of Systems Constitutional: Negative for: Fever, Chills ENT: Positive for: Ear Pain, Throat Pain. Negative for: Ear Discharge, Nose Pain, Nose Discharge, Nose Congestion, Mouth Pain, Throat Swelling Cardiovascular: Negative for: Chest Pain, Palpitations Respiratory: Negative for: Cough, Shortness of Breath Gastrointestinal: Negative for: Nausea, Vomiting, Abdominal Pain Skin: Negative for: Rash, Lesions Physical Exam - Reviewed Vital Signs Reviewed: Yes - Physical Exam Appears: Positive for: Well, Non-toxic, No Acute Distress (speaking in full sentences, no drooling) Head Exam: Positive for: ATRAUMATIC, NORMAL INSPECTION, NORMOCEPHALIC Skin: Positive for: Normal Color, Warm, Dry. Negative for: Rash Eye Exam: Positive for: EOMI, Normal appearance, PERRL ENT: Positive for: Normal ENT Inspection, Pharynx Is (normal, airway patent), TM Is/Are (wnl, without erythema), Other (Mandible nontender with full range of motion). Negative for: Sinus Pain/Drainage, Pharyngeal Erythema, Tonsillar Exudate Neck: Positive for: Normal, Painless ROM, Supple (no meningismus, no mass, no lymphadenopathy) Cardiovascular/Chest: Positive for: Regular Rate, Rhythm. Negative for: Murmur Respiratory: Positive for: Normal Breath Sounds. Negative for: Rhonchi, Wheezing Back: Positive for: Normal Inspection Extremity: Positive for: Normal ROM. Negative for: Deformity Neurologic/Psych: Positive for: Alert, handling tech II-XII (intact), Oriented (x3). Negative for: Motor/Sensory Deficits, Aphasia, Facial Droop - Laboratory Results Result Diagrams: 06/29/18 13:46 06/29/18 13:46 - ECG O2 Sat by Pulse Oximetry: 97 Medical Decision Making Medical Decision Making: Plan : - IV - Labs - CT soft tissue neck w/ IV contrast Lab results reviewed. CT soft tissue neck w/ IV contrast: FINDINGS: NASOPHARYNX: Unremarkable. SUPRAHYOID NECK: Unremarkable oropharynx, oral cavity, parapharyngeal space and retropharyngeal space. INFRAHYOID NECK: Unremarkable larynx, hypopharynx, and supraglottic space. Vocal cords intact an symmetric so. MASS: No large cervical masses or collections. GLANDS: Parotid and submandibular glands unremarkable. There are bilateral thyroid nodules are present the largest on the left side measuring 12.6 x 11 mm and on the right measuring approximately 9.0 x 8.96 mm. There is a 3rd low-attenuation focus more superiorly located in the right lobe measuring approximately 5.4 mm. 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 Mild multilevel degenerative spondylosis of the cervical spine VASCULAR STRUCTURES: Partially calcified atherosclerotic plaque changes seen along transverse portion of the thoracic aorta as well as at the origins of the great vessels. Minor partially calcified atherosclerotic plaque seen along the distal common carotid artery's extending on the left side into the into the bifurcation and proximal left internal carotid artery. Vertebral arteries are patent right- sided which is slightly larger in caliber/ more dominant than the left side. OTHER FINDINGS: Changes of bilateral cataract surgery. IMPRESSION: There are small bilateral low-attenuation thyroid nodules. Recommend followup thyroid ultrasound. No large cervical masses or collections. Lab and CT results discussed the patient in great detail. Patient's repeat blood pressure is noted to be elevated, patient said she took her blood pressure medication today in the morning. Otherwise patient reports no headache , dizziness, chest pain or shortness of breath. On exam, patient remains awake alert and oriented 3 in no acute distress. Neck is supple, repeat neuro exam shows no focal findings. Given clonidine 0.1 mg PO. Repeat BP 186/84. Based on history, exam and diagnostic results plan will be for outpatient follow -up. Advised to follow up with ENT referral provided in 1-2 days without fail. Advised to follow-up elevated BP with her PMD. Return to the emergency room at any time for any new or worsening symptoms. Patient states she fully agrees with and understands discharge instructions. States that she agrees with the plan and disposition. Verbalized and repeated discharge instructions and plan. I have given the patient opportunity to ask any additional questions. Disposition - Clinical Impression Clinical Impression: Left ear pain, Odynophagia - Patient ED Disposition Is Patient to be Admitted: No Counseled Patient/Family Regarding: Studies Performed, Diagnosis, Need For Followup - Disposition Referrals: FAMILY PROVIDER,NO [Primary Care Provider] - Tyler Arizmendi MD [Staff Provider] - Disposition: Routine/Home Disposition Time: 16:15 Condition: STABLE Additional Instructions: Thank you for letting us take care of you today. You were treated for left ear pain, odynophagia. The emergency medical care you received today was directed at your acute symptoms. Return to the Emergency Department if your symptoms worsen, do not improve, or if you have any other problems. Please follow up with ENT doctor in 2 days for re-evaluation and follow up. Bring any paperwork you were given at discharge with you along with any medications you are taking to your follow up visit. Our treatment cannot replace ongoing medical care by a primary care provider (PCP) outside of the emergency department. Thank you for allowing the [facility] team to be part of your care today. If you had a CT scan: A Radiologist will review the ED reading if any change in treatment is needed we will contact you. 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
[2018-06-29 14:01] LABS: ALB/GLOB RATIO 1.4 (1.0-2.1); ALBUMIN 3.8 g/dL (3.5-5.0)
[2018-06-29 14:11] LABS: BASO % 0.5 % (0.0-2.0); EOS # 0.1 K/uL (0.0-0.7); EOS % 1.3 % (0.0-4.0); HEMOGLOBIN 11.8 g/dL (12.0-16.0); LYMPH # 1.2 K/uL (1.0-4.3); LYMPH % 25.7 % (20.0-40.0); MEAN CORPUSCULAR HEMOGLOBIN 33.7 pg (27.0-31.0); MEAN CORPUSCULAR HGB CONC 33.5 g/dL (33.0-37.0); MEAN PLATELET VOLUME 9.7 fl (7.2-11.7); MONO # 0.4 K/uL (0.0-0.8); MONO % 7.6 % (0.0-10.0); NEUT # 3.1 K/uL (1.8-7.0); NEUT % 64.9 % (50.0-75.0); NRBC % 0.2 % (0.0-0.0); RBC 3.51 Mil/uL (3.80-5.20); RED CELL DISTRIBUTION WIDTH 13.8 % (11.5-14.5); WHITE BLOOD COUNT 4.8 K/uL (4.8-10.8)
[2018-06-29 14:12] LABS: MEAN CELL VOLUME 100.6 fl (81.0-99.0)
[2018-06-29] MEDS ORDERED: Iohexol 300 100 ML IJ ONE (14:58)
[2018-06-29] MEDS ORDERED: Sodium Chloride 0.9% 50 ML IV ONE (14:58)
--- NOTE | 2018-06-29 16:13 | CT ---
Date of service: 06/29/2018 PROCEDURE: CT NECK WITH CONTRAST HISTORY: Pain with swallowing COMPARISON: No prior study available comparison TECHNIQUE: CT of the neck with intravenous contrast. Coronal and sagittal reformats generated. Intravenous contrast dose: Radiation dose: DLP 281.4 mGy-cm This CT exam was performed using one or more of the following dose reduction techniques: Automated exposure control, adjustment of the mA and/or kV according to patient size, and/or use of iterative reconstruction technique. FINDINGS: NASOPHARYNX: Unremarkable. SUPRAHYOID NECK: Unremarkable oropharynx, oral cavity, parapharyngeal space and retropharyngeal space. INFRAHYOID NECK: Unremarkable larynx, hypopharynx, and supraglottic space. Vocal cords intact an symmetric so. MASS: No large cervical masses or collections. GLANDS: Parotid and submandibular glands unremarkable. There are bilateral thyroid nodules are present the largest on the left side measuring 12.6 x 11 mm and on the right measuring approximately 9.0 x 8.96 mm. There is a 3rd low-attenuation focus more superiorly located in the right lobe measuring approximately 5.4 mm. 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 Mild multilevel degenerative spondylosis of the cervical spine VASCULAR STRUCTURES: Partially calcified atherosclerotic plaque changes seen along transverse portion of the thoracic aorta as well as at the origins of the great vessels. Minor partially calcified atherosclerotic plaque seen along the distal common carotid artery's extending on the left side into the into the bifurcation and proximal left internal carotid artery. Vertebral arteries are patent right-sided which is slightly larger in caliber/ more dominant than the left side. OTHER FINDINGS: Changes of bilateral cataract surgery. IMPRESSION: There are small bilateral low-attenuation thyroid nodules. Recommend followup thyroid ultrasound. No large cervical masses or collections.
[2018-06-29 18:16] VITALS: BP 186/84; PULSE 66; RESP 19; O2SAT 99
== END 2018-06-29 18:33 | disposition home or self-care (01) ==
LOC: H.ER 11:58
DX: H92.02 Otalgia, left ear (principal); R13.10 Dysphagia, unspecified; E78.00 Pure hypercholesterolemia, unspecified; I10 Essential (primary) hypertension; E04.2 Nontoxic multinodular goiter
CPT/HCPCS: 70491; 80053; 85025; 99283; Q9967